=== PATIENT | female | born 1935 | race Caucasian/White ===

== ENCOUNTER 2016-06-04 07:12 | Emergency (ER) | payer MEDICARE ==
[~2016-06-04] VITALS: Ht 157.5 cm; Wt 80.3 kg
[~2016-06-04 07:12] MED LIST: /ESOM40CA PO; ASPI1TAB PO; ATOR40TA PO; BISO5TAB5 PO; BISO5TAB54 PO; CRAMPS OTC PO; DRIS1CAP PO; ISOS30TA4 PO; ISOS30TAB PO; LEVO75TA4 PO; LEVOTYROXINE PO; LOSA100T36 PO; MECLIZINE PO; NEXI40CA PO; NITR4TASL SL; OMEP40CA2 PO
[2016-06-04] MEDS ORDERED: ASPIRIN 81 MG CHEW TABLET PO ONE (07:45)
[2016-06-04 08:14] LABS: BASO % 0.3 % (0.0-1.0); EOS # 0.1 K/mm3 (0.0-0.50); EOS % 2.6 % (0.0-3.0); LARGE UNSTAINED CELL # 0.1 K/mm3 (0.0-0.4); LARGE UNSTAINED CELL % 1.2 % (0.0-4.0); LYMPH # 0.9 K/mm3 (1.5-4.5); LYMPH % 15.4 % (24.0-44.0); MEAN CORPUSCULAR HEMOGLOBIN 26.7 pg (27.0-33.0); MEAN CORPUSCULAR HGB CONC 32.9 g/dl (32.0-36.5); MEAN CORPUSCULAR VOLUME 81.2 fl (80.0-96.0); MONO # 0.3 K/mm3 (0.0-0.8); MONO % 5.5 % (0.0-5.0); NEUTROPHILS # 4.1 K/mm3 (1.8-7.7); NEUTROPHILS % 74.9 % (36.0-66.0); PLATELET COUNT, AUTOMATED 177 k/mm3 (150-450); RED CELL DISTRIBUTION WIDTH 15.5 % (11.5-14.5); WHITE BLOOD COUNT 5.5 K/mm3 (4.0-10.0)
[2016-06-04] MEDS ORDERED: LOSARTAN 50 MG TAB PO ONE (08:15)
[2016-06-04] MEDS ORDERED: ISOSORBIDE MON. (IMDUR) 30 MG XR TAB PO ONE (08:15)
[2016-06-04] MEDS ORDERED: BISOPROLOL FUMARATE 5 MG TAB PO ONE (08:15)
[2016-06-04 08:19] LABS: INR 1.03
[2016-06-04 08:29] VITALS: BP 142/68
[2016-06-04 08:39] LABS: ANION GAP 9 MEQ/L (8-16); BLOOD UREA NITROGEN 15 MG/DL (7-18); CALCIUM LEVEL 8.6 MG/DL (8.8-10.2); CARBON DIOXIDE LEVEL 27 MEQ/L (21-32); CHLORIDE LEVEL 109 MEQ/L (98-107); CREATININE FOR GFR 0.82 MG/DL (0.55-1.02); GLOMERULAR FILTRATION RATE > 60.0 (>32); GLUCOSE, FASTING 133 MG/DL (83-110); POTASSIUM SERUM 3.9 MEQ/L (3.5-5.1); SODIUM LEVEL 145 MEQ/L (136-145)
--- NOTE | 2016-06-04 09:05 | REP ---
PORTABLE CHEST: Single portable view of the chest is performed and compared to prior study of 01/31/2016. There is mild cardiomegaly. There is no acute infiltrate or pulmonary edema. The mediastinal silhouette is unchanged. Left single lead pacemaker is again noted. IMPRESSION: Cardiomegaly. No acute infiltrate. Signed by Yared Snider MD 06/04/2016 04:47 P
[2016-06-04] MEDS ORDERED: APIXABAN 5 MG TAB (ELIQUIS) PO ONE (09:15)
[2016-06-04] MEDS ORDERED: ELIQ5TAB PO (14:00)
[2016-06-04 14:31] VITALS: BP 106/59
--- NOTE | 2016-06-06 08:25 | ECGEPIP ---
Stationary ECG Study [facility] - ED Test Date: 2016-06-04 Pat Name: NICA ARAUJO Department: Room: - Gender: F Verification Lead: sb : 1935 Requested By: Larry Marrero Order Number: [id number] Reading MD: Tuyet Jones Measurements Intervals [place] Rate: 155 P: ID: 0 QRS: -22 QRSD: 88 T: 21 QT: 308 QTc: 496 Interpretive Statements ATRIAL FIBRILLATION WITH RAPID VENTRICULAR RESPONSE LOW QRS VOLTAGE IN PRECORDIAL LEADS ANTEROSEPTAL MYOCARDIAL INFARCTION, PROBABLY OLD PRIOR SINUS RHYTHM 02/01/16 Electronically Signed On 06-06-2016 8:25:29 EDT by Tuyet Jones
--- NOTE | 2016-06-06 08:26 | ECGEPIP ---
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
--- NOTE | 2016-06-06 08:30 | ECGEPIP ---
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
== END 2016-06-04 14:49 | disposition home or self-care (01) ==
LOC: M ED 08:49
DX: I48.91 Unspecified atrial fibrillation (principal); R94.31 Abnormal electrocardiogram [ECG] [EKG]; R06.02 Shortness of breath; R68.84 Jaw pain; I10 Essential (primary) hypertension; I25.10 Atherosclerotic heart disease of native coronary artery without angina pectoris; I50.9 Heart failure, unspecified; I25.2 Old myocardial infarction; E03.9 Hypothyroidism, unspecified; E78.5 Hyperlipidemia, unspecified; Z85.038 Personal history of other malignant neoplasm of large intestine; Z88.8 Allergy status to other drugs, medicaments and biological substances; Z79.899 Other long term (current) drug therapy; Z79.82 Long term (current) use of aspirin

== ENCOUNTER 2016-07-09 18:47 | Emergency (ER) | payer MEDICARE ==
[~2016-07-09] VITALS: Ht 157.5 cm; Wt 80.3 kg
[~2016-07-09 18:47] MED LIST changes: +ELIQ5TAB PO
[2016-07-09] MEDS ORDERED: AMIO20TA PO (19:00)
[2016-07-09] MEDS ORDERED: VITA200016 PO (19:00)
[2016-07-09] MEDS ORDERED: ACETAMINOPH W/CODEINE #3 TAB UD PO ONE (19:30)
[2016-07-09] MEDS ORDERED: GASTROGRAFIN SOLUTION 30ML (Q9963) PO ONE ×2 (19:45→20:00)
[2016-07-09 20:02] LABS: BASO % 0.2 % (0.0-1.0); EOS # 0.1 K/mm3 (0.0-0.50); EOS % 1.2 % (0.0-3.0); LARGE UNSTAINED CELL # 0.1 K/mm3 (0.0-0.4); LARGE UNSTAINED CELL % 0.8 % (0.0-4.0); LYMPH # 0.9 K/mm3 (1.5-4.5); LYMPH % 9.2 % (24.0-44.0); MEAN CORPUSCULAR HEMOGLOBIN 27.6 pg (27.0-33.0); MEAN CORPUSCULAR HGB CONC 33.2 g/dl (32.0-36.5); MEAN CORPUSCULAR VOLUME 83.3 fl (80.0-96.0); MONO # 0.4 K/mm3 (0.0-0.8); MONO % 3.7 % (0.0-5.0); NEUTROPHILS # 8.4 K/mm3 (1.8-7.7); NEUTROPHILS % 84.9 % (36.0-66.0); PLATELET COUNT, AUTOMATED 232 k/mm3 (150-450); RED CELL DISTRIBUTION WIDTH 15.7 % (11.5-14.5); WHITE BLOOD COUNT 9.9 K/mm3 (4.0-10.0)
[2016-07-09 20:34] LABS: ALBUMIN 3.6 GM/DL (3.2-5.2); ALBUMIN/GLOBULIN RATIO 1.16 (1.00-1.93); ALKALINE PHOSPHATASE 83 U/L (45-117); ALT/SGPT 16 U/L (12-78); AMYLASE 32 U/L (25-115); ANION GAP 9 MEQ/L (8-16); AST/SGOT 11 U/L (15-37); BILIRUBIN,DIRECT 0.2 MG/DL (0.0-0.2); BILIRUBIN,TOTAL 0.6 MG/DL (0.2-1.0); BLOOD UREA NITROGEN 13 MG/DL (7-18); CALCIUM LEVEL 8.9 MG/DL (8.8-10.2); CARBON DIOXIDE LEVEL 29 MEQ/L (21-32); CHLORIDE LEVEL 104 MEQ/L (98-107); CREATININE FOR GFR 0.94 MG/DL (0.55-1.02); GLOMERULAR FILTRATION RATE > 60.0 (>32); GLUCOSE, FASTING 118 MG/DL (83-110); POTASSIUM SERUM 4.6 MEQ/L (3.5-5.1); SODIUM LEVEL 142 MEQ/L (136-145); TOTAL PROTEIN 6.7 GM/DL (6.4-8.2)
[2016-07-09] MEDS ORDERED: ISOVUE-370 76% 100ML VIAL (Q9967) As Ordered ONE (21:16)
--- NOTE | 2016-07-09 21:50 | REPUSA ---
CT of the abdomen and pelvis with contrast Clinical statement: Pain. Technique: Multiple axial CT images were obtained from the base of the lungs through the floor of the pelvis utilizing 5 mm axial slices after administration of oral and nonionic intravenous contrast. C oronal and sagittal reconstructions were also obtained. Comparison: 02/04/2015. Findings: Chest: The visualized lung bases are clear. There is a moderate sized hiatal hernia. Abdomen: The liver, spleen, pancreas, kidneys, and adrenal glands are unremarkable. Small bilateral s imple renal cysts are noted. Iatrogenic pneumobilia is noted. The aorta is within normal limits. Ther e is no evidence of abdominal lymphadenopathy or ascites. Pelvis: The bowel is unremarkable, with no obstructive or inflammatory changes. Minimal diverticulosi s in the sigmoid colon is noted. The appendix is normal. The urinary bladder is within normal limits. The other pelvic structures appear grossly intact. There is no evidence of pelvic lymphadenopathy or ascites. Bones: There are no suspicious osseous abnormalities seen. Severe multilevel degenerative disc diseas e is noted throughout the spine, most severe at L3/L4 and L4/L5. Impression: 1. No obstructive or inflammatory bowel changes. Mild sigmoid diverticulosis. 2. Moderate sized hiatal hernia. 3. Iatrogenic pneumobilia. 4. No evidence of hydronephrosis or nephrolithiasis.Small bilateral simple renal cysts. 5. Moderate stable spondylosis of the spine.
[2016-07-09 22:35] VITALS: BP 134/75
[2016-07-09] MEDS ORDERED: NAPR500T PO (22:57)
[2016-07-09] MEDS ORDERED: ZOFR4TAB3 PO (22:57)
--- NOTE | 2016-07-12 06:59 | ED PDOC ---
Post-Departure Follow-Up radiology report faxed to Tuyet Romero MD Jul 12, 2016 06:59
== END 2016-07-09 23:09 | disposition home or self-care (01) ==
LOC: M ED 19:11
DX: R10.9 Unspecified abdominal pain (principal); R74.0 Nonspecific elevation of levels of transaminase and lactic acid dehydrogenase [LDH]; I48.91 Unspecified atrial fibrillation; I25.10 Atherosclerotic heart disease of native coronary artery without angina pectoris; F41.9 Anxiety disorder, unspecified; Z87.19 Personal history of other diseases of the digestive system; Z85.038 Personal history of other malignant neoplasm of large intestine; Z95.810 Presence of automatic (implantable) cardiac defibrillator; Z79.899 Other long term (current) drug therapy; Z79.01 Long term (current) use of anticoagulants; Z79.82 Long term (current) use of aspirin
CPT/HCPCS: 74177; 80048; 80076; 81001; 82150; 83605; 83690; 85025; 87086; 99283; Q9963; Q9967

== ENCOUNTER → 2016-08-13 | Outpatient (CLI) | payer MEDICARE ==
[~2016-08-13] VITALS: Ht 160 cm; Wt 80.3 kg
[~2016-08-13] MED LIST changes: +AMIO200T PO; -ATOR40TA PO; +ATOR40TA75 PO; +LIDOCAINE 2% INJ 100 MG/5 ML SDV (FOR ANES.) As Ordered ONE; +NAPR500T PO; +NS 1,000 ML IV SCH; +PROPOFOL 200 MG/20 ML VIAL As Ordered ONE; +TYLETAB14 PO; +VITA200016 PO; +ZOFR4TAB3 PO; +ePHEDrine SULFATE 25 MG/5 ML(5MG/ML) SYRINGE As Ordered ONE; +fentaNYL 100 MCG/2 ML INJECTION (J3010) As Ordered ONE
--- NOTE | 2016-08-13 08:24 | ROOR ---
Patient Name: Jennie eZndejas Procedure Date: 08/13/2016 8:06 AM Date of : 1935 Age: 81 Room: [facility] Gender: Female Note Status: Finalized Procedure: Upper GI endoscopy Indications: Epigastric abdominal pain, Suspected esophageal reflux Providers: Shalom Steiner Jr, MD Referring MD: Phillip Herbert MD Requesting Provider: Medicines: Propofol per Anesthesia Complications: No immediate complications. Procedure: Pre-Anesthesia Assessment: - Prior to the procedure, a History and Physical was performed, and patient medications and allergies were reviewed. The patient is competent. The risks and benefits of the procedure and the sedation options and risks were discussed with the patient. All questions were answered and informed consent was obtained. Patient identification and proposed procedure were verified by the physician and the nurse in the pre-procedure area and in the procedure room. Mental Status Examination: alert and oriented. Airway Examination: normal oropharyngeal airway and neck mobility. Respiratory Examination: clear to auscultation. CV Examination: normal. ASA Grade Assessment: II - A patient with mild systemic disease. After reviewing the risks and benefits, the patient was deemed in satisfactory condition to undergo the procedure. The anesthesia plan was to use moderate sedation / analgesia (conscious sedation). Immediately prior to administration of medications, the patient was re-assessed for adequacy to receive sedatives. The heart rate, respiratory rate, oxygen saturations, blood pressure, adequacy of pulmonary ventilation, and response to care were monitored throughout the procedure. The physical status of the patient was re-assessed after the procedure. The Endoscope was introduced through the mouth, and advanced to the second part of duodenum. The upper GI endoscopy was accomplished without difficulty. The patient tolerated the procedure well. Findings: The upper third of the esophagus, middle third of the esophagus and lower third of the esophagus were normal. A small hiatal hernia was present. Diffuse moderate inflammation characterized by congestion (edema), erythema, friability and granularity was found in the gastric antrum. Biopsies were taken with a cold forceps for histology. Patchy mildly erythematous mucosa was found in the cardia, in the gastric fundus, in the gastric body, in the prepyloric region of the stomach and at the pylorus. The duodenal bulb and first portion of the duodenum were normal. Impression: - Normal upper third of esophagus, middle third of esophagus and lower third of esophagus. - Small hiatal hernia. - Bile gastritis. Biopsied. - Erythematous mucosa in the cardia, gastric fundus, gastric body, prepyloric region of the stomach and pylorus. - Normal duodenal bulb and first portion of the duodenum. Recommendation: - Discharge patient to home (ambulatory). - Return to my office in 3 weeks. Shalom Steiner MD Shalom Steiner Jr, MD 08/13/2016 8:24:21 AM This report has been signed electronically. Number of Addenda: 0 Note Initiated On: 08/13/2016 8:06 AM Estimated Blood Loss: Estimated blood loss: none.
--- NOTE | 2016-08-13 08:45 | ROOR ---
Patient Name: Jennie Zendejas Procedure Date: 08/13/2016 8:07 AM Date of : 1935 Age: 81 Room: [facility] Gender: Female Note Status: Finalized Procedure: Colonoscopy Indications: High risk colon cancer surveillance: Personal history of colon cancer Providers: Shalom Steiner Jr, MD Referring MD: Phillip Herbert MD Requesting Provider: Medicines: Propofol per Anesthesia Complications: No immediate complications. Procedure: Pre-Anesthesia Assessment: - Prior to the procedure, a History and Physical was performed, and patient medications and allergies were reviewed. The patient is competent. The risks and benefits of the procedure and the sedation options and risks were discussed with the patient. All questions were answered and informed consent was obtained. Patient identification and proposed procedure were verified by the physician and the nurse in the pre-procedure area and in the procedure room. Mental Status Examination: alert and oriented. Airway Examination: normal oropharyngeal airway and neck mobility. Respiratory Examination: clear to auscultation. CV Examination: normal. ASA Grade Assessment: II - A patient with mild systemic disease. After reviewing the risks and benefits, the patient was deemed in satisfactory condition to undergo the procedure. The anesthesia plan was to use moderate sedation / analgesia (conscious sedation). Immediately prior to administration of medications, the patient was re-assessed for adequacy to receive sedatives. The heart rate, respiratory rate, oxygen saturations, blood pressure, adequacy of pulmonary ventilation, and response to care were monitored throughout the procedure. The physical status of the patient was re-assessed after the procedure. The Colonoscope was introduced through the anus and advanced to the cecum, identified by appendiceal orifice and ileocecal valve. The colonoscopy was performed without difficulty. The patient tolerated the procedure well. The quality of the bowel preparation was adequate and good. Findings: The perianal and digital rectal examinations were normal. Pertinent negatives include normal sphincter tone, no palpable rectal lesions and no anal lesion or abnormality was detected. The rectum, transverse colon, ascending colon, cecum, appendiceal orifice and ileocecal valve appeared normal. A diminutive polyp was found in the descending colon. The polyp was removed with a jumbo cold forceps. Resection and retrieval were complete. A medium polyp was found in the descending colon. The polyp was sessile. The polyp was removed with a piecemeal technique using a hot snare. Resection and retrieval were complete. Impression: - The rectum, transverse colon, ascending colon, cecum, appendiceal orifice and ileocecal valve are normal. - One diminutive polyp in the descending colon, removed with a jumbo cold forceps. Resected and retrieved. - One medium polyp in the descending colon, removed piecemeal using a hot snare. Resected and retrieved. Recommendation: - Discharge patient to home (ambulatory). - Repeat colonoscopy in 3 years for surveillance based on pathology results. Shalom Steiner MD Shalom Steiner Jr, MD 08/13/2016 8:45:27 AM This report has been signed electronically. Number of Addenda: 0 Note Initiated On: 08/13/2016 8:07 AM Estimated Blood Loss: Estimated blood loss: none.
[2016-08-13 09:00] VITALS: BP 151/67
== END ==
LOC: M OPP 07:05
PROVIDERS: ATTEND Surgery
DX: R19.4 Change in bowel habit (principal); Z85.038 Personal history of other malignant neoplasm of large intestine; D12.4 Benign neoplasm of descending colon; R10.13 Epigastric pain; K44.9 Diaphragmatic hernia without obstruction or gangrene; K29.60 Other gastritis without bleeding; K31.89 Other diseases of stomach and duodenum; I10 Essential (primary) hypertension; E03.9 Hypothyroidism, unspecified; Z79.82 Long term (current) use of aspirin; Z79.899 Other long term (current) drug therapy; Z88.8 Allergy status to other drugs, medicaments and biological substances; Z95.0 Presence of cardiac pacemaker; Z95.5 Presence of coronary angioplasty implant and graft; I25.2 Old myocardial infarction; Z90.49 Acquired absence of other specified parts of digestive tract
CPT/HCPCS: 43239; 45380; 45385; 88305; J3010

== ENCOUNTER → 2016-11-20 | Outpatient (REF) | payer MEDICARE ==
[~2016-11-20] MED LIST changes: -LIDOCAINE 2% INJ 100 MG/5 ML SDV (FOR ANES.) As Ordered ONE; -NS 1,000 ML IV SCH; -PROPOFOL 200 MG/20 ML VIAL As Ordered ONE; -ePHEDrine SULFATE 25 MG/5 ML(5MG/ML) SYRINGE As Ordered ONE; -fentaNYL 100 MCG/2 ML INJECTION (J3010) As Ordered ONE
[2016-11-20 13:24] LABS: MEAN CORPUSCULAR HEMOGLOBIN 26.6 pg (27.0-33.0); MEAN CORPUSCULAR HGB CONC 31.1 g/dl (32.0-36.5); MEAN CORPUSCULAR VOLUME 85.5 fl (80.0-96.0); RED CELL DISTRIBUTION WIDTH 16.2 % (11.5-14.5); WHITE BLOOD COUNT 6.1 10^3/uL (4.0-10.0)
[2016-11-20 13:49] LABS: ALBUMIN 3.5 GM/DL (3.2-5.2); ALBUMIN/GLOBULIN RATIO 1.25 (1.00-1.93); BILIRUBIN,TOTAL 0.6 MG/DL (0.2-1.0); CALCIUM LEVEL 9.1 MG/DL (8.8-10.2); CREATININE FOR GFR 0.96 MG/DL (0.55-1.02); FREE T4 1.51 NG/DL (0.76-1.46); GLOMERULAR FILTRATION RATE 59.5 (>32); POTASSIUM SERUM 3.7 MEQ/L (3.5-5.1); TOTAL PROTEIN 6.3 GM/DL (6.4-8.2)
== END ==
LOC: M LABNEURO 09:24
PROVIDERS: ATTEND Family Medicine
DX: I25.10 Atherosclerotic heart disease of native coronary artery without angina pectoris (principal); E78.4 Other hyperlipidemia; E03.9 Hypothyroidism, unspecified

== ENCOUNTER 2016-11-21 12:48 | Emergency (ER) | payer MEDICARE ==
[~2016-11-21] VITALS: Ht 157.5 cm; Wt 77.3 kg
[~2016-11-21 12:48] MED LIST changes: -TYLETAB14 PO
--- NOTE | 2016-11-21 14:11 | REP ---
Right shoulder series: Three views. History: Trauma. Findings: Three views of the right shoulder demonstrate osteoarthritic hypertrophy and narrowing at the acromioclavicular joint. The glenohumeral articulation is normally aligned. No fracture or erosive changes seen. There is a 10 mm periarticular calcification projecting below the coracoid process consistent with a intra-articular loose body. The right lung is clear as visualized. There is a pacemaker via the left side. Impression: Periarticular calcification consistent with a 10 mm loose body in the subcoracoid recess. AC joint osteoarthritis. Mild glenohumeral spurring. No fracture seen or other traumatic abnormality. Signed by Jose J Avelar MD 11/21/2016 02:21 P
[2016-11-21] MEDS ORDERED: ACETAMINOPH W/CODEINE #3 TAB UD PO ONE (14:15)
[2016-11-21] MEDS ORDERED: TYLETAB14 PO (14:17)
[2016-11-21 14:30] VITALS: BP 131/73
== END 2016-11-21 14:33 | disposition home or self-care (01) ==
LOC: M ED 12:48
DX: M24.011 Loose body in right shoulder (principal); I25.10 Atherosclerotic heart disease of native coronary artery without angina pectoris; I10 Essential (primary) hypertension; E03.9 Hypothyroidism, unspecified; M21.372 Foot drop, left foot; E78.70 Disorder of bile acid and cholesterol metabolism, unspecified; Z79.899 Other long term (current) drug therapy; Z79.82 Long term (current) use of aspirin; Z88.8 Allergy status to other drugs, medicaments and biological substances; Z85.038 Personal history of other malignant neoplasm of large intestine

== ENCOUNTER 2017-01-05 16:53 | Emergency (ER) | payer MEDICARE ==
[~2017-01-05] VITALS: Ht 157.5 cm; Wt 77.3 kg
[~2017-01-05 16:53] MED LIST changes: +TYLETAB14 PO
[2017-01-05 17:54] LABS: BASO % 0.5 % (0.0-1.0); EOS # 0.1 10^3/uL (0.0-0.50); IMMATURE GRANULOCYTE % 0.5 % (0-0); LYMPH # 0.9 10^3/uL (1.5-4.5); MEAN CORPUSCULAR HEMOGLOBIN 27.3 pg (27.0-33.0); MEAN CORPUSCULAR HGB CONC 32.1 g/dl (32.0-36.5); MEAN CORPUSCULAR VOLUME 84.9 fl (80.0-96.0); MONO # 0.5 10^3/uL (0.0-0.8); MONO % 8.2 % (0.0-5.0); NEUTROPHILS # 4.3 10^3/uL (1.8-7.7); NEUTROPHILS % 73.8 % (36.0-66.0); PLATELET COUNT, AUTOMATED 238 10^3/uL (150-450); RED CELL DISTRIBUTION WIDTH 15.9 % (11.5-14.5); WHITE BLOOD COUNT 5.9 10^3/uL (4.0-10.0)
--- NOTE | 2017-01-05 17:54 | REP ---
Clinical: Chest pain . Comparison: 06/04/2016 . Findings: The mediastinum and cardiac silhouette are stable and within normal limits for portable technique. The lung gregg are clear without acute consolidation, effusion, or pneumothorax. Skeletal structures are intact. Pacemaker in stable position. Impression: No acute cardiopulmonary process appreciated. Signed by Jethro King MD 01/05/2017 05:44 P
[2017-01-05 18:15] LABS: ANION GAP 10 MEQ/L (8-16); BLOOD UREA NITROGEN 12 MG/DL (7-18); CARBON DIOXIDE LEVEL 26 MEQ/L (21-32); CHLORIDE LEVEL 107 MEQ/L (98-107); CREATININE FOR GFR 0.93 MG/DL (0.55-1.02); GLOMERULAR FILTRATION RATE > 60.0 (>32); GLUCOSE, FASTING 108 MG/DL (83-110); POTASSIUM SERUM 3.6 MEQ/L (3.5-5.1); SODIUM LEVEL 143 MEQ/L (136-145)
[2017-01-05] MEDS ORDERED: ISOVUE-370 76% 100ML VIAL (Q9967) As Ordered ONE (18:22)
[2017-01-05 19:09] LABS: INR 1.43
[2017-01-05] MEDS ORDERED: ACETAMINOPHEN TAB 650MG DOSE (2X325MG) PO ONE (19:15)
[2017-01-06 00:14] VITALS: BP 127/56
--- NOTE | 2017-01-06 08:14 | ECGEPIP ---
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
--- NOTE | 2017-01-06 08:17 | ECGEPIP ---
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
--- NOTE | 2017-01-14 10:50 | REP ---
CT ANGIOGRAM CHEST: 01/05/2017. Comparison 01/03/2016. Clinical history: Chest pain, dyspnea. Study presented for my initial interpretation today. A wet reading was provided by a colleague at the time of the examination. It is not available for dictation and therefore it is dictated now. Technique: The patient received bolus of 100 ml Isovue 370 and scanning through the chest. Protocol for CT pulmonary angio followed with thick slab coronal and sagittal MIP reformats. Lung gregg show the anterior right upper lobe subpleural nodule best seen on image 33 of series 402. There are no other nodules or masses. There are dependent atelectatic and fibrotic changes. There is a greater left than right. There is no effusion or acute infiltrate. The heart is enlarged with left atrial and ventricular enlargement. Pacer lead into the right ventricle again noted. There is small pericardial effusion. The aorta has calcifications without aneurysm or dissection. There is poor opacification of the pulmonary arteries with the central arteries to proximal lobar arteries seen without evidence for filling defect. Exam is suboptimal for pulmonary emboli of the more peripheral vessels. There is no pathologic sized mediastinal or hilar adenopathy. No axillary or supraclavicular mass. Bone windows show advanced degenerative changes throughout the lumbar spine and thoracic levels from upper to lower thoracic region. Sternum, manubrium, medial clavicles, ribs, scapulae, humeral heads were all grossly intact. The upper abdomen shows clips from prior cholecystectomy. There is pneumobilia evident. This is a postcholecystectomy change and unremarkable. The adrenal glands are normal. A couple of small cysts in the upper poles of the kidneys and visible portion of pancreas intact. Moderate sized hiatal hernia again seen unchanged. Impression: 1. No evidence for central pulmonary embolism. The exam is suboptimal for other vessels. 2. Pneumobilia again noted with clips from prior cholecystectomy. 3. Basilar fibrotic change and a 6 mm nodule in the right upper lobe subpleural region. This should have a 6-month follow-up. 4. Cardiomegaly with left atrial and ventricular enlargement, coronary artery calcifications, single lead pacer, all unchanged. Signed by George Sosa MD 01/14/2017 08:31 P
== END 2017-01-06 00:45 | disposition home or self-care (01) ==
LOC: M ED 16:53
DX: R91.1 Solitary pulmonary nodule (principal); R06.02 Shortness of breath; R00.1 Bradycardia, unspecified; I48.91 Unspecified atrial fibrillation; I25.10 Atherosclerotic heart disease of native coronary artery without angina pectoris; I10 Essential (primary) hypertension; E07.9 Disorder of thyroid, unspecified; I42.9 Cardiomyopathy, unspecified; H81.09 Meniere's disease, unspecified ear; M51.9 Unspecified thoracic, thoracolumbar and lumbosacral intervertebral disc disorder; Z79.899 Other long term (current) drug therapy; Z88.8 Allergy status to other drugs, medicaments and biological substances; Z95.5 Presence of coronary angioplasty implant and graft; Z95.810 Presence of automatic (implantable) cardiac defibrillator; Z98.0 Intestinal bypass and anastomosis status; Z98.890 Other specified postprocedural states; Z85.038 Personal history of other malignant neoplasm of large intestine; Z80.1 Family history of malignant neoplasm of trachea, bronchus and lung; Z83.3 Family history of diabetes mellitus
CPT/HCPCS: 36415; 71010; 71275; 80048; 82550; 82553; 83880; 84484; 85025; 85379; 85610; 85730; 93005; 93041; 94760; 99285; Q9967

== ENCOUNTER → 2017-01-15 | Outpatient (REF) | payer MEDICARE ==
[2017-01-15 20:06] LABS: MEAN CORPUSCULAR HEMOGLOBIN 27.2 pg (27.0-33.0); MEAN CORPUSCULAR HGB CONC 30.4 g/dl (32.0-36.5); MEAN CORPUSCULAR VOLUME 89.3 fl (80.0-96.0); PERCENT SATURATION 14.6 % (13.2-45.0); PLATELET COUNT, AUTOMATED 245 10^3/uL (150-450); RED CELL DISTRIBUTION WIDTH 15.9 % (11.5-14.5); WHITE BLOOD COUNT 7.1 10^3/uL (4.0-10.0)
== END ==
LOC: M SFHCADAM 16:01
PROVIDERS: ATTEND Physician Assistant Medical
DX: D64.9 Anemia, unspecified (principal)

== ENCOUNTER 2017-02-02 15:38 | Observation (INO) | payer MEDICARE ==
[~2017-02-02] VITALS: Ht 157.5 cm; Wt 78.4 kg
[2017-02-02] MEDS ORDERED: SPIR25TA2 PO (15:59)
[2017-02-02] MEDS ORDERED: FURO20TA2 PO (15:59)
[2017-02-02] MEDS ORDERED: ASPIRIN 81 MG CHEW TABLET PO ONE (16:00)
[2017-02-02 16:22] LABS: BASO % 0.5 % (0.0-1.0); EOS # 0.1 10^3/uL (0.0-0.50); EOS % 2.1 % (0.0-3.0); IMMATURE GRANULOCYTE % 0.3 % (0-0); LYMPH # 0.8 10^3/uL (1.5-4.5); LYMPH % 11.9 % (24.0-44.0); MEAN CORPUSCULAR HGB CONC 32.4 g/dl (32.0-36.5); MEAN CORPUSCULAR VOLUME 83.4 fl (80.0-96.0); MONO # 0.6 10^3/uL (0.0-0.8); MONO % 8.5 % (0.0-5.0); NEUTROPHILS % 76.7 % (36.0-66.0); PLATELET COUNT, AUTOMATED 242 10^3/uL (150-450); RED CELL DISTRIBUTION WIDTH 15.5 % (11.5-14.5); WHITE BLOOD COUNT 6.6 10^3/uL (4.0-10.0)
--- NOTE | 2017-02-02 16:39 | REP ---
Clinical: Chest pain . Comparison: 01/05/2017 . Findings: The mediastinum and cardiac silhouette are stable and again demonstrating mild cardiomegaly and pacemaker in satisfactory position. The lung gregg demonstrate chronic stable changes without acute consolidation, effusion, or pneumothorax. Skeletal structures are intact. Impression: No acute cardiopulmonary process appreciated. Signed by Jethro King MD 02/02/2017 04:29 P
[2017-02-02 16:52] LABS: ALBUMIN 3.2 GM/DL (3.2-5.2); ALKALINE PHOSPHATASE 60 U/L (45-117); ALT/SGPT 19 U/L (12-78); ANION GAP 6 MEQ/L (8-16); AST/SGOT 14 U/L (7-37); BILIRUBIN,DIRECT 0.1 MG/DL (0.0-0.2); BILIRUBIN,TOTAL 0.5 MG/DL (0.2-1.0); BLOOD UREA NITROGEN 12 MG/DL (7-18); CALCIUM LEVEL 8.4 MG/DL (8.8-10.2); CARBON DIOXIDE LEVEL 30 MEQ/L (21-32); CHLORIDE LEVEL 107 MEQ/L (98-107); CREATININE FOR GFR 0.85 MG/DL (0.55-1.02); GLOMERULAR FILTRATION RATE > 60.0 (>32); GLUCOSE, FASTING 112 MG/DL (83-110); POTASSIUM SERUM 3.3 MEQ/L (3.5-5.1); SODIUM LEVEL 143 MEQ/L (136-145); TOTAL PROTEIN 6.4 GM/DL (6.4-8.2)
[2017-02-02] MEDS ORDERED: ISOS60TA2 PO (18:21)
[2017-02-02] MEDS ORDERED: ELIQ5TAB PO (18:21)
[2017-02-02] MEDS ORDERED: SYNT88TA2 PO (18:21)
--- NOTE | 2017-02-02 18:42 | ECGEPIP ---
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
--- NOTE | 2017-02-02 18:43 | ECGEPIP ---
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
[2017-02-02] MEDS ORDERED: POTASSIUM CHLORIDE 10 MEQ SR TABLET PO ONE (21:00)
[2017-02-02] MEDS ORDERED: MAALOX 30 ML SUSP *UDC PO PRN (21:00)
[2017-02-02] MEDS ORDERED: ACETAMINOPHEN TAB 650MG DOSE (2X325MG) PO PRN (21:15)
[2017-02-02] MEDS ORDERED: ISOVUE-370 76% 100ML VIAL (Q9967) As Ordered ONE (21:23)
[2017-02-02] MEDS: SENOKOT S TAB PO SCH (21:32)
[2017-02-02] MEDS: APIXABAN 5 MG TAB (ELIQUIS) PO SCH (21:32)
--- NOTE | 2017-02-02 22:30 | REPUSA ---
CT angiogram of the chest Clinical statement: Chest pain and shortness of breath. Technique: Multiple axial CT images were obtained from the thoracic inlet through the upper abdomen a fter a bolus administration of nonionic intravenous contrast. Coronal and sagittal reconstructions we re also obtained. Comparison: 01/05/2017. Findings: The pulmonary arteries are well-opacified with contrast, with no intraluminal filling defec ts to suggest embolism. The thoracic aorta is unremarkable. Thyroid gland is within normal limits. Th ere is no thoracic lymphadenopathy. There are no pericardial or pleural effusions. There is a left lo wer lobe atelectasis. There is a 1.1 x 0.9 cm nodule in the anterior right upper lobe. This is stable . Limited imaging of the upper abdomen demonstrates a moderate sized hiatal hernia. Biliary pneumatos is is noted. There are no suspicious osseous lesions. Impression: 1. No evidence of pulmonary embolism. 2. Atelectasis in the left lower lobe. 3. Stable 1.1 x 0.9 cm nodule in the anterior right upper lobe. CT/PET scan or biopsy could be consid ered. Alternatively, a short interval CT follow-up is recommended. 4. Moderate sized hiatal hernia. 5. Stable biliary pneumatosis.
--- NOTE | 2017-02-03 05:28 | HPE ---
DATE OF ADMISSION: 02/02/2017 PRIMARY CARE PROVIDER: Dr. Herbert. JAVA SOFTWARE: Dr. Ordonez. CHIEF COMPLAINT: Chest pain. The patient has been signed out to Dr. Herbert. Will be under the care of Dr. Hernandez tomorrow. 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 The patient has a history of intermittent chest pain, seeing Dr. Ordonez. The patient presented to the emergency room with acute onset at 9:30 in the morning of chest pain, as per patient was left-sided, aching pain with no radiation, no exacerbating or relieving factor. Does not relieve with nitroglycerin. Was not to the extent of intensity in the past. Does not change with food. Denies any diaphoresis, palpitations. The patient was bradycardic in the emergency room, as per patient has been chronic. The patient has an automatic implantable cardioverter defibrillator (AICD). Denies any sick contact, coughing, abdominal pain, diarrhea or constipation. ALLERGIES: The patient reported allergies to: 1. NON-STEROIDAL ANTI-INFLAMMATORY DRUGS (NSAIDs), ASPIRIN for gastritis. 2. NEBULIZER TREATMENT causes dyspnea. PAST MEDICAL HISTORY: Please refer to history of present illness (HPI). The patient has hypertension, hypothyroidism, diaphragmatic hernia, colorectal cancer, gastritis, vitamin D deficiency, peptic ulcer, esophageal stenosis with stricture, benign positional vertigo, Meniere's disease, general osteoarthritis, diverticulosis, degenerative disc disease, spinal stenosis with foot drop left foot, as well as moderate to poorly differentiated rectal cancer, coronary arterial disease, pericardial effusion, biliary stone. PAST SURGICAL HISTORY: Cholecystectomy, total hysterectomy with bilateral salpingo-oophorectomy, colon cancer resection left side 1989, EGD, moderate to poorly differentiated that was operated on in 2013, ERCP, bowel resection, sigmoidectomy, cardiac catheterization with bare-metal stent 2013, pericardial window 2013. AICD 2014, ERCP 2015. Cataract surgery right eye. Repeat cardiac catheterization December 2015. FAMILY HISTORY: Father with lung cancer. Mother with type 2 diabetes. SOCIAL HISTORY: The patient does not smoke. Reported occasional alcohol use. No illicit drug use. REVIEW OF SYSTEMS: Reported chest pain. All other review of systems is negative. HOME MEDICATIONS: - Eliquis 5 mg by mouth twice a day - amiodarone 200 mg by mouth daily - aspirin 81 mg by mouth daily - Lipitor 40 mg by mouth daily - bisoprolol 2.5 mg by mouth daily - Lasix 20 mg by mouth daily - isosorbide mononitrate 60 mg by mouth daily - Synthroid 88 mcg by mouth daily - losartan 100 mg by mouth daily - sublingual nitroglycerin 0.4 as needed - omeprazole 40 mg by mouth daily - spironolactone 12.5 mg by mouth daily - vitamin D 2000 units by mouth daily PHYSICAL EXAMINATION: VITAL SIGNS: Temperature 96.7, pulse 44, respirations 19, blood pressure 147/67, pulse oximetry 98% on room air. GENERAL: Patient alert and oriented times three, in no acute distress. HEENT: Normocephalic, atraumatic. PULMONARY: Bilaterally clear to auscultation. CARDIOVASCULAR: Regular. S1, S2. ABDOMEN: Soft, nontender. Positive bowel sounds. Surgical scar note. EXTREMITIES: Left lower extremity mildly swollen. Dorsalis pedis and posterior tibial pulses intact. LABORATORY DATA: WBC 6.6, hemoglobin and hematocrit 10.9 over 33.6, platelets 242. Chemistry: Sodium 143, potassium 3.2, chloride 107, bicarbonate 30, BUN 12, creatinine 0.8. Cardiac enzymes negative times two. Lipase negative. ASSESSMENT AND PLAN: This is an 82-year-old female patient with underlying medical history hypertension, coronary arterial disease, dyslipidemia, hypothyroidism, with recurrent angina, left foot drop, colon cancer history, peptic ulcer, esophageal stricture, benign positional vertigo history, who presented with left-sided chest pain. 1. Left-sided chest pain. Cardiac enzymes are negative times two. Case discussed with Dr. Ordonez. Given presentation and persistent pain not relieved with nitroglycerin, likely noncardiac in nature. Will do further workup in terms of CT angiogram to rule out pulmonary embolism (PE), as well as echocardiogram. The patient possibly would benefit from gastrointestinal (GI) workup, given the source of pain could be secondary to GI and acid reflux. GI cocktail. Continue proton pump inhibitor (PPI). 2. Coronary arterial disease. Patient on Eliquis and aspirin. Continue beta rupesh, statin, isosorbide mononitrate, losartan, spironolactone. Continue to monitor. Echocardiogram. Telemetry monitoring. Serial cardiac enzymes. 3. Questionable atrial fibrillation. Patient has an automatic implantable cardioverter defibrillator (AICD). Continue amiodarone, beta rupesh, Eliquis. 4. Dyslipidemia. Continue statin. 5. Hypertension. Continue current medication. 6. Hypothyroidism. Monitor thyroid profile. Continue home medication. 7. History of peptic ulcer and acid reflux. Continue home medication. GI cocktail has been ordered. 8. Pulmonary nodule. Will need outpatient followup. 9. Colon cancer. Need outpatient followup. 10. History of pericardial effusion. Echocardiogram has been ordered. 11. Left foot swelling with left foot drop. Ultrasound Doppler to rule out deep venous thrombosis (DVT). 12. Deep venous thrombosis (DVT) prophylaxis. Patient on Eliquis for possible atrial fibrillation. DISPOSITION: Pending further workup for chest pain. Case discussed with Dr. Ordonez. Sign out given to Dr. Herbert.
[2017-02-03 07:31] LABS: MEAN CORPUSCULAR HEMOGLOBIN 26.9 pg (27.0-33.0); MEAN CORPUSCULAR VOLUME 84.3 fl (80.0-96.0); PLATELET COUNT, AUTOMATED 222 10^3/uL (150-450); RED CELL DISTRIBUTION WIDTH 15.8 % (11.5-14.5); WHITE BLOOD COUNT 4.9 10^3/uL (4.0-10.0)
[2017-02-03 07:53] LABS: ERYTHROCYTE SEDIMENTATION RATE 17 mm/hr (0-30)
[2017-02-03 08:17] LABS: ALBUMIN/GLOBULIN RATIO 0.94 (1.00-1.93); ALKALINE PHOSPHATASE 58 U/L (45-117); ALT/SGPT 17 U/L (12-78); ANION GAP 5 MEQ/L (8-16); AST/SGOT 15 U/L (7-37); BILIRUBIN,TOTAL 0.5 MG/DL (0.2-1.0); BLOOD UREA NITROGEN 8 MG/DL (7-18); CALCIUM LEVEL 8.5 MG/DL (8.8-10.2); CARBON DIOXIDE LEVEL 32 MEQ/L (21-32); CHLORIDE LEVEL 108 MEQ/L (98-107); CREATININE FOR GFR 0.85 MG/DL (0.55-1.02); GLOMERULAR FILTRATION RATE > 60.0 (>32); GLUCOSE, FASTING 104 MG/DL (83-110); MAGNESIUM LEVEL 2.1 MG/DL (1.8-2.4); POTASSIUM SERUM 3.9 MEQ/L (3.5-5.1); SODIUM LEVEL 145 MEQ/L (136-145); T UPTAKE 36 % (30-39); THYROXINE (T4) 15.2 UG/DL (4.5-12.0); TOTAL PROTEIN 6.2 GM/DL (6.4-8.2)
[2017-02-03 08:30] VITALS: BP 162/80
[2017-02-03] MEDS: OMEPRAZOLE 20 MG CAP PO SCH (08:37)
[2017-02-03] MEDS: SENOKOT S TAB PO SCH ×2 (08:38→20:49)
[2017-02-03] MEDS: VITAMIN D 1,000 INTERNATIONAL UNITS TABLET PO SCH (08:38)
[2017-02-03] MEDS: LOSARTAN 50 MG TAB PO SCH (08:41)
[2017-02-03] MEDS: ATORVASTATIN 20 MG TAB PO SCH (08:41)
[2017-02-03] MEDS: FUROSEMIDE 20 MG TAB PO SCH (08:42)
[2017-02-03] MEDS: ASPIRIN 81 MG ENTERIC TAB PO SCH (08:42)
[2017-02-03] MEDS: APIXABAN 5 MG TAB (ELIQUIS) PO SCH ×2 (08:42→20:49)
[2017-02-03] MEDS: SPIRONOLACTONE 12.5MG PER 1/2 TABLET PO SCH (08:43)
[2017-02-03] MEDS: LEVOTHYROXINE 88MCG TABLET (0.088 MG) PO SCH (08:44)
[2017-02-03] MEDS: ISOSORBIDE MON. (IMDUR) 60 MG XR TAB PO SCH (08:44)
[2017-02-03] MEDS: AMIODARONE 200 MG TAB (PACERONE) PO SCH (08:47)
[2017-02-03] MEDS ORDERED: BISOPROLOL FUM 2.5 MG PER 1/2TAB PO SCH (09:00)
--- NOTE | 2017-02-03 09:03 | REP ---
Clinical: Pain and swelling.. Technique: Snider scale and color Doppler evaluation using linear high frequency transducer. Findings: Ultrasound examination of the left lower extremity deep venous structures from the common femoral vein to the popliteal vein demonstrates normal compressibility flow and wave patterns in response to respiration and augmentation. There is no evidence for deep venous thrombosis. Impression: No evidence for deep venous thrombosis left lower extremity.. Signed by Jethro King MD 02/03/2017 08:55 A
[2017-02-03 12:00] VITALS: BP 166/76; PULSE 48
--- NOTE | 2017-02-03 12:26 | IPNPDOC ---
Subjective Date Seen The patient was seen on 02/03/17. Subjective Chief Complaint/HPI The patient is a 82-year-old female admitted with a reason for visit of Chest Pain. Events since last encounter patient reports chest pain in left chest after walking to [place]. No associated n/ v or SOB. NO radiation of pain Constitutional: Denies: Chills, Fever Pulmonary: Denies: Dyspnea, Cough Cardiovascular: Reports: Chest Pain (see above), Edema (improved with initiation of diuretic by Dr. Whitomre 01/25), Denies: Palpitations, Orthopnea, Paroxysmal Noc. Dyspnea Gastrointestinal: Denies: Nausea, Vomiting, Abdominal Pain, Diarrhea, Constipation Objective Physical Examination General Exam: Positive: Alert, No Acute Distress Chest Exam: Positive: Clear to auscultation, Normal air movement, Other (non- tender) Heart Exam: Positive: Bradycardic, Negative: Murmurs Abdomen Exam: Positive: Normal bowel sounds, Soft, Negative: Tenderness Assessment /Plan Problems (1) Chest pain Status: Acute Problem Text: Troponins negative and EKG stable c/w baseline. Had recurrent CP after ambulation now. EKG unchanged Cont ASA/BB/ARB/Statin Dr. Hernandez will d/w cardiology again (2) Bradycardia Status: Chronic Problem Text: HR running in 40s on amiodarone and Zebeta 2.5 mg daily d/W cardio whether to cut back or stop BB (3) Anemia Status: Acute Response to Treatment: Worse Problem Text: mild anemia - new c/w baseline Get guiac Continue home PPI (omeprazole) Colonoscopy 08/13/16 - 1 polyp removed, tubulovillous adenoma EGD 08/13/16: gastritis (4) PAF (paroxysmal atrial fibrillation) Status: Chronic Response to Treatment: Stable Problem Text: on ELiquis (5) CAD (coronary artery disease) Status: Chronic (6) Pulmonary nodule Status: Chronic Problem Text: need f/u CT No evidence of pulmonary embolism. 2. Atelectasis in the left lower lobe. 3. Stable 1.1 x 0.9 cm nodule in the anterior right upper lobe. CT/PET scan or biopsy could be considered. Alternatively, a short interval CT follow-up is recommended. 4. Moderate sized hiatal hernia. 5. Stable biliary pneumatosis. DD: ARTIE MENARD MD 02/02/17 2223 Plan/VTE VTE Prophylaxis Ordered?: Yes (Danay) Plan Family Medicine Attending Note: I saw and examined Ms. Zendejas this afternoon; I discussed her care with ALEXANDREA Lucas and I agree with her note as documented above. The patient described her symptoms as chest discomfort moreso than pain, and was not able to characterize this further. Ddx includes reflux/dyspepsia, mild anemia in the setting of known CAD causing ischemia, or symptomatic bradycardia. Repeat ECG and troponin were negative today. We will work up her anemia with hemoccult, stool, but panendoscopy was fairly normal and not concerning 08/2016 (see above). I discussed with Dr. 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 Ordonez today, and he recommended stopping Bisoprolol to see if her HR and symptoms improve; bisoprolol will be held starting tomorrow. If she continues to have episodes of chest pain, we should consider Cardiology consult - it appears from Dr. Ordonez's last note that he intended to schedule her for a stress test. (KES) VS, I&O, 24H, Fishbone Vital Signs/I&O Vital Signs Date Time Temp Pulse Resp B/P (MAP) Pulse Ox O2 Delivery O2 Flow Rate FiO2 02/03/17 08:44 162/80 02/03/17 08:43 58 02/03/17 08:30 97.0 18 98 Room Air Laboratory Data 24H LABS Laboratory Tests 2 02/02/17 16:06: Immature Granulocyte % (Auto) 0.3H, White Blood Count 6.6, Red Blood Count 4.03 , Hemoglobin 10.9L, Hematocrit 33.6L, Mean Corpuscular Volume 83.4, Mean Corpuscular Hemoglobin 27.0, Mean Corpuscular Hemoglobin Concent 32.4, Red Cell Distribution Width 15.5H, Platelet Count 242, Neutrophils (%) (Auto) 76.7H, Lymphocytes (%) (Auto) 11.9L, Monocytes (%) (Auto) 8.5H, Eosinophils (%) (Auto) 2.1, Basophils (%) (Auto) 0.5, Neutrophils # (Auto) 5.0, Lymphocytes # (Auto) 0.8L, Monocytes # (Auto) 0.6, Eosinophils # (Auto) 0.1, Basophils # (Auto) 0.0, Immature Granulocyte # (Auto) 0.0, Nucleated Red Blood Cells % (auto) 0.0, Anion Gap 6L, Glomerular Filtration Rate > 60.0, Calcium Level 8.4L, Aspartate Amino Transf (AST/SGOT) 14, Alanine Aminotransferase (ALT/SGPT) 19, Alkaline Phosphatase 60, Total Bilirubin 0.5, Direct Bilirubin 0.1, Total Creatine Kinase 41, Creatine Kinase MB 1.1, Creatine Kinase MB Relative Index 2.68, Troponin I < 0.02, BO-Bra-B-Type Natriuretic Peptide 1121H, Total Protein 6.4, Albumin 3.2, Albumin/Globulin Ratio 1.00, Lipase 130 02/02/17 19:09: Total Creatine Kinase 36, Creatine Kinase MB 1.2, Creatine Kinase MB Relative Index 3.33, Troponin I < 0.02 02/02/17 23:41: Total Creatine Kinase 38, Creatine Kinase MB 1.0, Creatine Kinase MB Relative Index 2.63, Troponin I 0.02 02/03/17 06:54: Nucleated Red Blood Cells % (auto) 0.0, Anion Gap 5L, Glomerular Filtration Rate > 60.0, Calcium Level 8.5L, Aspartate Amino Transf (AST/SGOT) 15, Alanine Aminotransferase (ALT/SGPT) 17, Alkaline Phosphatase 58, Total Bilirubin 0.5, Total Protein 6.2L, Albumin 3.0L, Albumin/Globulin Ratio 0.94L, Erythrocyte Sedimentation Rate 17, Blood Urea Nitrogen 8, Creatinine 0.85, Sodium Level 145 , Potassium Level 3.9, Chloride Level 108H, Carbon Dioxide Level 32, Magnesium Level 2.1, C-Reactive Protein, Quantitative < 0.30, Thyroid Stimulating Hormone (TSH) 2.570, Free Thyroxine Index 5.5H, Thyroxine (T4) 15.2H, Triiodothyronine ( T3) Uptake 36 CBC/BMP Laboratory Tests 02/02/17 16:06 Red Blood Count 4.03, Mean Corpuscular Volume 83.4, Mean Corpuscular Hemoglobin 27.0, Mean Corpuscular Hemoglobin Concent 32.4, Red Cell Distribution Width 15.5 H, Neutrophils (%) (Auto) 76.7 H, Lymphocytes (%) (Auto) 11.9 L, Monocytes (%) (Auto) 8.5 H, Eosinophils (%) (Auto) 2.1, Basophils (%) (Auto) 0.5, Neutrophils # (Auto) 5.0, Lymphocytes # (Auto) 0.8 L, Monocytes # (Auto) 0.6, Eosinophils # (Auto) 0.1, Basophils # (Auto) 0.0 02/03/17 06:54 Red Blood Count 4.01, Mean Corpuscular Volume 84.3, Mean Corpuscular Hemoglobin 26.9 L, Mean Corpuscular Hemoglobin Concent 32.0, Red Cell Distribution Width 15.8 H, Calcium Level 8.5 L, Aspartate Amino Transf (AST/SGOT) 15, Alanine Aminotransferase (ALT/SGPT) 17, Alkaline Phosphatase 58, Total Bilirubin 0.5, Total Protein 6.2 L, Albumin 3.0 L SOL CALVILLO PA-C Feb 03, 2017 12:26 ANGÉLICA HERNANDEZ MD Feb 03, 2017 14:27
[2017-02-03] MEDS ORDERED: PANTOPRAZOLE 40MG TAB (PROTONIX) PO SCH (12:30)
[2017-02-03 16:00] VITALS: BP 138/68
[2017-02-03 16:30] VITALS: BP 153/68
--- NOTE | 2017-02-03 17:58 | ECGEPIP ---
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
--- NOTE | 2017-02-03 20:08 | ECGEPIP ---
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
[2017-02-03 21:31] VITALS: BP 159/72
[2017-02-04 01:37] VITALS: BP 149/82
[2017-02-04 04:15] VITALS: BP 159/75
[2017-02-04] MEDS: LEVOTHYROXINE 88MCG TABLET (0.088 MG) PO SCH (05:15)
[2017-02-04 06:02] LABS: MEAN CORPUSCULAR HEMOGLOBIN 26.8 pg (27.0-33.0); MEAN CORPUSCULAR HGB CONC 32.4 g/dl (32.0-36.5); MEAN CORPUSCULAR VOLUME 82.7 fl (80.0-96.0); PLATELET COUNT, AUTOMATED 225 10^3/uL (150-450); RED CELL DISTRIBUTION WIDTH 15.7 % (11.5-14.5); WHITE BLOOD COUNT 5.9 10^3/uL (4.0-10.0)
[2017-02-04 06:27] LABS: ALBUMIN 3.1 GM/DL (3.2-5.2); ALBUMIN/GLOBULIN RATIO 0.94 (1.00-1.93); ALKALINE PHOSPHATASE 61 U/L (45-117); ALT/SGPT 17 U/L (12-78); ANION GAP 8 MEQ/L (8-16); AST/SGOT 12 U/L (7-37); BILIRUBIN,TOTAL 0.5 MG/DL (0.2-1.0); BLOOD UREA NITROGEN 10 MG/DL (7-18); CALCIUM LEVEL 9.1 MG/DL (8.8-10.2); CARBON DIOXIDE LEVEL 30 MEQ/L (21-32); CHLORIDE LEVEL 103 MEQ/L (98-107); CREATININE FOR GFR 0.84 MG/DL (0.55-1.02); GLOMERULAR FILTRATION RATE > 60.0 (>32); GLUCOSE, FASTING 116 MG/DL (83-110); MAGNESIUM LEVEL 1.8 MG/DL (1.8-2.4); POTASSIUM SERUM 3.7 MEQ/L (3.5-5.1); SODIUM LEVEL 141 MEQ/L (136-145); TOTAL PROTEIN 6.4 GM/DL (6.4-8.2)
[2017-02-04 08:00] VITALS: BP 144/70
[2017-02-04] MEDS: OMEPRAZOLE 20 MG CAP PO SCH (08:10)
[2017-02-04] MEDS: ATORVASTATIN 20 MG TAB PO SCH (08:10)
[2017-02-04] MEDS: SENOKOT S TAB PO SCH (08:10)
[2017-02-04 08:11] VITALS: BP 144/70
[2017-02-04] MEDS: SPIRONOLACTONE 12.5MG PER 1/2 TABLET PO SCH (08:11)
[2017-02-04] MEDS: ISOSORBIDE MON. (IMDUR) 60 MG XR TAB PO SCH (08:11)
[2017-02-04] MEDS: ASPIRIN 81 MG ENTERIC TAB PO SCH (08:12)
[2017-02-04] MEDS: APIXABAN 5 MG TAB (ELIQUIS) PO SCH (08:12)
[2017-02-04] MEDS: FUROSEMIDE 20 MG TAB PO SCH (08:12)
[2017-02-04] MEDS: AMIODARONE 200 MG TAB (PACERONE) PO SCH (08:12)
[2017-02-04] MEDS: VITAMIN D 1,000 INTERNATIONAL UNITS TABLET PO SCH (08:12)
[2017-02-04] MEDS: LOSARTAN 50 MG TAB PO SCH (08:12)
[2017-02-04 12:00] VITALS: BP 127/64
--- NOTE | 2017-02-05 08:28 | ECHO ---
DATE OF PROCEDURE: 02/03/2017 REFERRING PROVIDER: Shanda Gonzalez MD PRIMARY CLUTCH SPECIALIST: Isaias Ordonez MD PATIENT LOCATION: Room 3227 REASON FOR THE ECHOCARDIOGRAM: Chest pain. 2D MEASUREMENTS: IVS: 1.3 cm LV: 4.8 cm LVPW: 1.3 cm LA: 4.3 cm Aorta: 2.9 cm RVC: 1.3 cm DOPPLER MEASUREMENTS: Peak velocity across the aortic valve 1.2 m/s Peak velocity across the LVOT 0.8 m/s Mitral E 0.63 Mitral A 0.64 with a ratio of greater than 1.0 Maximum tricuspid valve velocity 2.7 m/s 2D COMMENTS: 1. Normal left ventricular size with mildly increased left ventricular wall thickness with depressed global left ventricular systolic function. The mid as well as the apical septum appear to be akinetic. 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 The estimated global left ventricular systolic function is 35%. 2. Mildly enlarged left atrium. Normal right atrium and left ventricle. 3. The atrial septum did not reveal any defect, but there was a small color flow jet noted using color Doppler that could represent a patent foramen ovale, tiny, with left to right shunt. 4. Normal aortic root. 5. Trace pericardial effusion noted, no evidence of cardiac tamponade. 6. Mildly calcified aortic valve with normal leaflet excursion. Mildly calcified mitral annulus with normal anterior mitral valve leaflet motion. Normal tricuspid valve and pulmonic valve. The proximal pulmonary artery branches were not well visualized. 7. The inferior vena cava was normal in size, central venous pressure is most likely normal. Doppler, it detects mild mitral regurgitation, mild tricuspid regurgitation. The calculated pulmonary artery systolic pressure varied between 30-40 mmHg. Assessment of the left ventricular systolic function appeared to be normal. IMPRESSION: 1. Moderate global left ventricular systolic dysfunction with regional wall motion abnormalities consistent probably with underlying coronary artery disease. Preserved left ventricular wall thickness. Left ventricular diastolic function appeared to be normal. 2. Aortic valve sclerosis without stenosis or aortic regurgitation. 3. Mitral annulus calcification with mild mitral regurgitation and mildly enlarged left atrium. 4. Mild tricuspid regurgitation with probably mild to moderate hypertension. 5. A patent foramen ovale (PFO) was noted in limited views with a small/tiny to left to right shunt. 6. Trace pericardial effusions, no evidence of cardiac tamponade. 7. Patient was noted during the test to be bradycardic at times with a heart rate between 50-55 beats per minute.
[2017-02-05] MEDS ORDERED: INFLUENZA VIRUS VACCINE HIGH DOSE 0.5 ML SYRINGE (90662) IM ONE (09:00)
--- NOTE | 2017-02-05 18:31 | DS.PDOC ---
Discharge Summary General Date of Admission Feb 02, 2017 at 21:05 Date of Discharge 02/04/17 Primary Care Physician: SHAD PETERSON PA-C Attending Physician: ANGÉLICA MATOS MD Discharge Summary PROCEDURES PERFORMED DURING STAY: Echocardiogram 02/03/17 ADMITTING DIAGNOSES: L sided chest pain. DISCHARGE DIAGNOSES: Chest pain-resolved. Bradycardia- resolving. Pulmonary nodule- stable. Chronic anemia- neg FOBT. Paroxysmal atrial fibrillation. CAD. HTN. Hypothyroidism. Meniere. OA. Diverticulosis. DDD. Spinal stenosis-mild. COMPLICATIONS/CHIEF COMPLAINT: Chest Pain. BRIEF HISTORY/HOSPITAL COURSE: This is a 82 y/o female who presented to the ED at the time of admission with complaints of Left sided chest pain since the morning. Pain was unrelieved with nitroglycerin and GI cocktail. She had no elevations of her cardiac enzymes. She had a negative CT angio for pulmonary embolism. Patient was admitted to the PCU for observation. On the unit, the patient had some complaints of chest pain with ambulation. She was bradycardic on telemetry. Case was discussed with her salary manager. Her Bisoprolol was held. She also has chronic anemia, FOBT was negative. At the time of discharge, patient was free of chest pain for over 24hr. Her bradycardia had resolved with the discontinuation of her bisoprolol. Anticipated outpatient stress test per cardiology. DISCHARGE MEDICATIONS: Please see below. ALLERGIES: Please see below. PHYSICAL EXAMINATION ON DISCHARGE: VITAL SIGNS: Please see below. GENERAL: in no acute distress HEENT: mucus membranes moist CARDIOVASCULAR EXAMINATION: bradycardic, regular rhythm, no murmurs RESPIRATORY EXAMINATION: clear bilaterally, no wheezing. ABDOMINAL EXAMINATION: soft, nontender EXTREMITIES: no edema, cyanosis LABORATORY DATA: Please see below. IMAGING: Vascular US 02/03/17: "No evidence for deep venous thrombosis left lower extremity" CXR 02/03/17 "No acute cardiopulmonary process appreciated." CT angio 02/03/17 "1. No evidence of pulmonary embolism. 2. Atelectasis in the left lower lobe. 3. Stable 1.1 x 0.9 cm nodule in the anterior right upper lobe. CT/PET scan or biopsy could be considered. Alternatively, a short interval CT follow-up is recommended. 4. Moderate sized hiatal hernia. 5. Stable biliary pneumatosis." Echocardiogram 02/03/17: "1. Moderate global left ventricular systolic dysfunction with regional wall motion abnormalities consistent probably with underlying coronary artery disease. Preserved left ventricular wall thickness. Left ventricular diastolic function appeared to be normal. 2. Aortic valve sclerosis without stenosis or aortic regurgitation. 3. Mitral annulus calcification with mild mitral regurgitation and mildly enlarged left atrium. 4. Mild tricuspid regurgitation with probably mild to moderate hypertension. 5. A patent foramen ovale (PFO) was noted in limited views with a small/tiny to left to right shunt. 6. Trace pericardial effusions, no evidence of cardiac tamponade. 7. Patient was noted during the test to be bradycardic at times with a heart rate between 50-55 beats per minute." PROGNOSIS: good ACTIVITY: As tolerated. DIET: As tolerated. DISCHARGE PLAN: Home DISPOSITION: Home, Self-Care. DISCHARGE INSTRUCTIONS: 1. f/u with cardiology, outpatient cardiac stress test ITEMS TO FOLLOWUP ON ON OUTPATIENT: none DISCHARGE CONDITION: Stable. TIME SPENT ON DISCHARGE: Greater than 30 minutes. Vital Signs/I&Os Vital Signs Date Time Temp Pulse Resp B/P (MAP) Pulse Ox O2 Delivery O2 Flow Rate FiO2 02/04/17 12:00 97.3 60 20 127/64 (85) 91 Room Air I&O- Last 24 Hours up to 6 AM 02/05/17 06:00 Intake Total 480 ml Output Total 600 ml Balance -120 ml Discharge Medications Scheduled Amiodarone HCl (Amiodarone HCl) 200 Mg Tab, 200 MG PO DAILY, (Reported) Apixaban Base (Eliquis) 5 Mg Tab, 5 MG PO BID, (Reported) Aspirin (Aspirin 81) 81 Mg Tab, 81 MG PO DAILY, (Reported) Atorvastatin Calcium (Atorvastatin Calcium) 40 Mg Tab, 40 MG PO DAILY, (Reported ) Furosemide (Furosemide) 20 Mg Tab, 20 MG PO DAILY, (Reported) Isosorbide Mononitrate (Isosorbide Mononitrate ER) 60 Mg Tab, 60 MG PO DAILY, ( Reported) Levothyroxine Sodium (Synthroid) 88 Mcg Tab, 88 MCG PO DAILY, (Reported) Losartan Potassium (Losartan Potassium) 100 Mg Tab, 100 MG PO DAILY, (Reported) Omeprazole (Omeprazole) 40 Mg Cap, 40 MG PO DAILY, (Reported) Spironolactone (Spironolactone) 25 Mg Tab, 12.5 MG PO DAILY, (Reported) Vitamin D (Vitamin D) 2,000 Unit Cap, 2,000 UNIT PO DAILY, (Reported) Scheduled PRN Nitroglycerin (Nitrostat) 0.4 Mg Subl, 0.4 MG SL Q5MP PRN for CHEST PAIN, ( Reported) Allergies Coded Allergies: Unclassified Drugs (Verified Adverse Reaction, Intermediate, NEBULIZER TREATMENT - BREATHIG WORSE, 01/05/17) GME ATTESTATION GME ATTESTATION My faculty preceptor for this patient encounter was physically present during the encounter and was fully available. All aspects of the patient interview, examination, medical decision making process, and medical care plan development were reviewed and approved by the faculty preceptor. The faculty preceptor is aware and concurs with the plan as stated in the body of this note and will attest to such by his/her cosignature. SOPHIA LI DO Feb 05, 2017 18:31
== END 2017-02-04 14:48 | disposition home or self-care (01) ==
LOC: M ED 15:38 → M ED INP 21:05 → M PCU 21:05
PROVIDERS: ADMIT Hospitalist; ATTEND Family Medicine
DX: R07.89 Other chest pain (principal); I10 Essential (primary) hypertension; E03.9 Hypothyroidism, unspecified; K44.9 Diaphragmatic hernia without obstruction or gangrene; K29.50 Unspecified chronic gastritis without bleeding; I48.0 Paroxysmal atrial fibrillation; D64.9 Anemia, unspecified; R91.8 Other nonspecific abnormal finding of lung field; K22.2 Esophageal obstruction; H81.10 Benign paroxysmal vertigo, unspecified ear; H81.09 Meniere's disease, unspecified ear; M19.90 Unspecified osteoarthritis, unspecified site; K57.30 Diverticulosis of large intestine without perforation or abscess without bleeding; I25.10 Atherosclerotic heart disease of native coronary artery without angina pectoris; M21.372 Foot drop, left foot; Z85.038 Personal history of other malignant neoplasm of large intestine; Z79.82 Long term (current) use of aspirin; Z79.02 Long term (current) use of antithrombotics/antiplatelets; Z79.899 Other long term (current) drug therapy
CPT/HCPCS: 36415; 71010; 71275; 80048; 80053; 80076; 82550; 82553; 83690; 83735; 83880; 84436; 84443; 84479; 84484; 85025; 85027; 85652; 86140; 93005; 93041; 93306; 93971; 94760; 97161; 99285; Q9967

== ENCOUNTER → 2017-03-23 | Outpatient (CLI) | payer MEDICARE ==
[2017-03-23 17:45] LABS: ANION GAP 9 MEQ/L (8-16); BLOOD UREA NITROGEN 16 MG/DL (7-18); CARBON DIOXIDE LEVEL 27 MEQ/L (21-32); CHLORIDE LEVEL 107 MEQ/L (98-107); CREATININE FOR GFR 0.91 MG/DL (0.55-1.30); GLOMERULAR FILTRATION RATE > 60.0 (>32); GLUCOSE, FASTING 86 MG/DL (70-100); SODIUM LEVEL 143 MEQ/L (136-145)
[2017-03-23 18:02] LABS: HEMATOCRIT 37.1 % (36.0-47.0); HEMOGLOBIN 11.8 g/dl (12.0-16.0); MEAN CORPUSCULAR HEMOGLOBIN 27.1 pg (27.0-33.0); MEAN CORPUSCULAR HGB CONC 31.8 g/dl (32.0-36.5); MEAN CORPUSCULAR VOLUME 85.1 fl (80.0-96.0); PLATELET COUNT, AUTOMATED 285 10^3/uL (150-450); RED BLOOD COUNT 4.36 10^6/uL (4.00-5.40); RED CELL DISTRIBUTION WIDTH 15.8 % (11.5-14.5); WHITE BLOOD COUNT 6.9 10^3/uL (4.0-10.0)
== END ==
LOC: M SMT 15:46
DX: I50.9 Heart failure, unspecified (principal)
CPT/HCPCS: 80048

== ENCOUNTER 2017-04-18 15:04 | Inpatient (IN) | payer MEDICARE ==
[2017-04-18 16:13] LABS: BASO % 0.1 % (0.0-1.0); EOS % 0.1 % (0.0-3.0); HEMATOCRIT 34.9 % (36.0-47.0); HEMOGLOBIN 11.3 g/dl (12.0-16.0); IMMATURE GRANULOCYTE % 0.3 % (0-3.0); LYMPH % 1.5 % (24.0-44.0); MEAN CORPUSCULAR HEMOGLOBIN 27.5 pg (27.0-33.0); MEAN CORPUSCULAR HGB CONC 32.4 g/dl (32.0-36.5); MEAN CORPUSCULAR VOLUME 84.9 fl (80.0-96.0); MONO # 0.5 10^3/uL (0.0-0.8); MONO % 4.9 % (0.0-5.0); NEUTROPHILS # 8.7 10^3/uL (1.8-7.7); NEUTROPHILS % 93.1 % (36.0-66.0); PLATELET COUNT, AUTOMATED 209 10^3/uL (150-450); RED BLOOD COUNT 4.11 10^6/uL (4.00-5.40); RED CELL DISTRIBUTION WIDTH 15.5 % (11.5-14.5); WHITE BLOOD COUNT 9.4 10^3/uL (4.0-10.0)
[2017-04-18 16:36] LABS: LACTIC ACID SEPSIS PROTOCOL 2.9 MMOL/L (0.4-2.0)
[2017-04-18 16:37] LABS: ALBUMIN 3.2 GM/DL (3.2-5.2); ALKALINE PHOSPHATASE 279 U/L (45-117); ALT/SGPT 343 U/L (12-78); AMYLASE 27 U/L (25-115); ANION GAP 11 MEQ/L (8-16); AST/SGOT 778 U/L (7-37); BILIRUBIN,DIRECT 0.9 MG/DL (0.0-0.2); BILIRUBIN,TOTAL 1.5 MG/DL (0.2-1.0); BLOOD UREA NITROGEN 14 MG/DL (7-18); CALCIUM LEVEL 8.6 MG/DL (8.8-10.2); CARBON DIOXIDE LEVEL 25 MEQ/L (21-32); CHLORIDE LEVEL 103 MEQ/L (98-107); CPK CREATINE PHOSPHOKINASE 45 U/L (26-192); CREATININE FOR GFR 0.97 MG/DL (0.55-1.30); GLOMERULAR FILTRATION RATE 58.7 (>32); GLUCOSE, FASTING 150 MG/DL (70-100); LIPASE 144 U/L (73-393); MB/CK RELATIVE INDEX 2.22 (< OR =4); POTASSIUM SERUM 3.9 MEQ/L (3.5-5.1); SODIUM LEVEL 139 MEQ/L (136-145); TOTAL PROTEIN 6.1 GM/DL (6.4-8.2); TROPONIN I < 0.02 NG/ML (< 0.10)
[2017-04-18] MEDS ORDERED: ISOVUE-370 76% 100ML VIAL (Q9967) As Ordered (16:37)
[2017-04-18 16:46] LABS: LYMPH # 0.1 10^3/uL (1.5-4.5); POSITIVE DIFF POS FLAG
[2017-04-18 18:15] LABS: KETONE, URINE AUTO RFX NEGATIVE (NEGATIVE); LEUKOCYTE ESTERASE UR AUTO RFX TRACE (NEGATIVE); NITRITE, URINE AUTO RFX POSITIVE (NEGATIVE); RBC, URINE AUTO RFX 6 /HPF (0-3); SPECIFIC GRAVITY UR AUTO RFX 1.045 (1.002-1.035); SQUAM EPITHELIAL CELL UR AURFX 1 /HPF (0-6); WBC, URINE AUTO RFX 6 /HPF (0-3)
[2017-04-18] MEDS: NS 500 ML IV (18:15)
[2017-04-18] MEDS ORDERED: MORPHINE 4 MG/ML 1ML VIAL (J2270) IV (19:45)
[2017-04-18] MEDS ORDERED: ONDANSETRON 4MG/2ML VIAL (J2405) IV (19:45)
[2017-04-18] MEDS ORDERED: traMADol 50 MG TAB PO (19:45)
[2017-04-18] MEDS ORDERED: NITROGLYCERIN 0.4 MG SUBL TABLET SL (20:15)
[2017-04-18] MEDS: SUCRALFATE 1 GM TAB PO (22:42)
[2017-04-19 05:55] LABS: BASO % 0.2 % (0.0-1.0); EOS % 0.3 % (0.0-3.0); HEMATOCRIT 32.6 % (36.0-47.0); HEMOGLOBIN 10.6 g/dl (12.0-16.0); IMMATURE GRANULOCYTE % 0.4 % (0-3.0); LYMPH # 0.5 10^3/uL (1.5-4.5); LYMPH % 4.7 % (24.0-44.0); MEAN CORPUSCULAR HEMOGLOBIN 27.2 pg (27.0-33.0); MEAN CORPUSCULAR HGB CONC 32.5 g/dl (32.0-36.5); MEAN CORPUSCULAR VOLUME 83.6 fl (80.0-96.0); MONO # 0.8 10^3/uL (0.0-0.8); MONO % 8.1 % (0.0-5.0); NEUTROPHILS # 8.6 10^3/uL (1.8-7.7); NEUTROPHILS % 86.3 % (36.0-66.0); PLATELET COUNT, AUTOMATED 211 10^3/uL (150-450); RED CELL DISTRIBUTION WIDTH 15.9 % (11.5-14.5)
[2017-04-19] MEDS: LEVOTHYROXINE 88MCG TABLET (0.088 MG) PO (05:57)
[2017-04-19 06:15] LABS: ALKALINE PHOSPHATASE 207 U/L (45-117); ALT/SGPT 297 U/L (12-78); ANION GAP 8 MEQ/L (8-16); AST/SGOT 294 U/L (7-37); BILIRUBIN,TOTAL 1.2 MG/DL (0.2-1.0); BLOOD UREA NITROGEN 12 MG/DL (7-18); CALCIUM LEVEL 8.4 MG/DL (8.8-10.2); CARBON DIOXIDE LEVEL 26 MEQ/L (21-32); CHLORIDE LEVEL 107 MEQ/L (98-107); CREATININE FOR GFR 0.85 MG/DL (0.55-1.30); GLOMERULAR FILTRATION RATE > 60.0 (>32); GLUCOSE, FASTING 95 MG/DL (70-100); POTASSIUM SERUM 3.5 MEQ/L (3.5-5.1); SODIUM LEVEL 141 MEQ/L (136-145)
[2017-04-19 06:16] LABS: LACTIC ACID SEPSIS PROTOCOL 1.2 MMOL/L (0.4-2.0)
[2017-04-19] MEDS: BISOPROLOL FUM 2.5 MG PER 1/2TAB PO (09:00)
[2017-04-19] MEDS: FUROSEMIDE 20 MG TAB PO (09:00)
[2017-04-19] MEDS: LOSARTAN 50 MG TAB PO (09:00)
[2017-04-19] MEDS: SPIRONOLACTONE 12.5MG PER 1/2 TABLET PO (10:00)
[2017-04-19] MEDS: SUCRALFATE 1 GM TAB PO ×2 (10:10→22:03)
[2017-04-19] MEDS: OMEPRAZOLE 20 MG CAP PO (10:11)
[2017-04-19] MEDS: ISOSORBIDE MON. (IMDUR) 60 MG XR TAB PO (10:11)
[2017-04-19] MEDS: ATORVASTATIN 20 MG TAB PO (10:11)
[2017-04-20 05:35] LABS: BASO % 0.4 % (0.0-1.0); EOS # 0.1 10^3/uL (0.0-0.50); EOS % 1.4 % (0.0-3.0); HEMATOCRIT 30.7 % (36.0-47.0); HEMOGLOBIN 9.9 g/dl (12.0-16.0); IMMATURE GRANULOCYTE % 0.4 % (0-3.0); LYMPH # 0.3 10^3/uL (1.5-4.5); LYMPH % 6.4 % (24.0-44.0); MEAN CORPUSCULAR HEMOGLOBIN 27.7 pg (27.0-33.0); MEAN CORPUSCULAR HGB CONC 32.2 g/dl (32.0-36.5); MEAN CORPUSCULAR VOLUME 85.8 fl (80.0-96.0); MONO # 0.5 10^3/uL (0.0-0.8); MONO % 9.8 % (0.0-5.0); NEUTROPHILS # 4.1 10^3/uL (1.8-7.7); NEUTROPHILS % 81.6 % (36.0-66.0); PLATELET COUNT, AUTOMATED 172 10^3/uL (150-450); RED BLOOD COUNT 3.58 10^6/uL (4.00-5.40); RED CELL DISTRIBUTION WIDTH 15.7 % (11.5-14.5)
[2017-04-20] MEDS: LEVOTHYROXINE 88MCG TABLET (0.088 MG) PO (05:36)
[2017-04-20 06:07] LABS: ALBUMIN 2.6 GM/DL (3.2-5.2); ALBUMIN/GLOBULIN RATIO 0.87 (1.00-1.93); ALKALINE PHOSPHATASE 158 U/L (45-117); ALT/SGPT 172 U/L (12-78); ANION GAP 7 MEQ/L (8-16); AST/SGOT 90 U/L (7-37); BILIRUBIN,TOTAL 0.9 MG/DL (0.2-1.0); BLOOD UREA NITROGEN 13 MG/DL (7-18); CALCIUM LEVEL 8.4 MG/DL (8.8-10.2); CARBON DIOXIDE LEVEL 28 MEQ/L (21-32); CHLORIDE LEVEL 106 MEQ/L (98-107); GLOMERULAR FILTRATION RATE > 60.0 (>32); GLUCOSE, FASTING 93 MG/DL (70-100); POTASSIUM SERUM 3.6 MEQ/L (3.5-5.1); SODIUM LEVEL 141 MEQ/L (136-145); TOTAL PROTEIN 5.6 GM/DL (6.4-8.2)
[2017-04-20] MEDS: BACTRIM 160MG/800MG DS TAB PO ×2 (09:00→20:41)
[2017-04-20] MEDS: ATORVASTATIN 20 MG TAB PO (09:51)
[2017-04-20] MEDS: FUROSEMIDE 20 MG TAB PO (09:51)
[2017-04-20] MEDS: BISOPROLOL FUM 2.5 MG PER 1/2TAB PO (09:51)
[2017-04-20] MEDS: LOSARTAN 50 MG TAB PO (09:52)
[2017-04-20] MEDS: ISOSORBIDE MON. (IMDUR) 60 MG XR TAB PO (09:52)
[2017-04-20] MEDS: OMEPRAZOLE 20 MG CAP PO (09:52)
[2017-04-20] MEDS: SPIRONOLACTONE 12.5MG PER 1/2 TABLET PO (09:56)
[2017-04-20] MEDS: SUCRALFATE 1 GM TAB PO ×2 (09:56→20:41)
[2017-04-20 10:00] LABS: CARCINOEMBRYONIC ANTIGEN 16.2 NG/ML (<2.5)
[2017-04-20 14:47] LABS: INR 1.13; PROTHROMBIN TIME 14.7 SECONDS (12.4-14.5)
[2017-04-20] MEDS ORDERED: LIDOCAINE 1% MDV 20ML VIAL As Ordered (15:11)
[2017-04-21] MEDS: LEVOTHYROXINE 88MCG TABLET (0.088 MG) PO (06:11)
[2017-04-21 06:47] LABS: BASO % 0.4 % (0.0-1.0); EOS # 0.1 10^3/uL (0.0-0.50); HEMATOCRIT 32.2 % (36.0-47.0); HEMOGLOBIN 10.4 g/dl (12.0-16.0); IMMATURE GRANULOCYTE % 0.2 % (0-3.0); LYMPH # 0.4 10^3/uL (1.5-4.5); LYMPH % 9.2 % (24.0-44.0); MEAN CORPUSCULAR HEMOGLOBIN 27.4 pg (27.0-33.0); MEAN CORPUSCULAR HGB CONC 32.3 g/dl (32.0-36.5); MEAN CORPUSCULAR VOLUME 84.7 fl (80.0-96.0); MONO # 0.5 10^3/uL (0.0-0.8); MONO % 11.9 % (0.0-5.0); NEUTROPHILS # 3.4 10^3/uL (1.8-7.7); NEUTROPHILS % 76.3 % (36.0-66.0); PLATELET COUNT, AUTOMATED 175 10^3/uL (150-450); RED CELL DISTRIBUTION WIDTH 15.5 % (11.5-14.5); WHITE BLOOD COUNT 4.5 10^3/uL (4.0-10.0)
[2017-04-21 07:13] LABS: ALBUMIN 2.8 GM/DL (3.2-5.2); ALBUMIN/GLOBULIN RATIO 0.85 (1.00-1.93); ALKALINE PHOSPHATASE 151 U/L (45-117); ALT/SGPT 120 U/L (12-78); ANION GAP 8 MEQ/L (8-16); AST/SGOT 38 U/L (7-37); BILIRUBIN,TOTAL 0.8 MG/DL (0.2-1.0); BLOOD UREA NITROGEN 13 MG/DL (7-18); CALCIUM LEVEL 8.5 MG/DL (8.8-10.2); CARBON DIOXIDE LEVEL 27 MEQ/L (21-32); CHLORIDE LEVEL 105 MEQ/L (98-107); CREATININE FOR GFR 0.83 MG/DL (0.55-1.30); GLOMERULAR FILTRATION RATE > 60.0 (>32); GLUCOSE, FASTING 92 MG/DL (70-100); POTASSIUM SERUM 3.4 MEQ/L (3.5-5.1); SODIUM LEVEL 140 MEQ/L (136-145); TOTAL PROTEIN 6.1 GM/DL (6.4-8.2)
[2017-04-21] MEDS: BACTRIM 160MG/800MG DS TAB PO ×2 (08:10→20:33)
[2017-04-21] MEDS: ISOSORBIDE MON. (IMDUR) 60 MG XR TAB PO (08:11)
[2017-04-21] MEDS: FUROSEMIDE 20 MG TAB PO (08:11)
[2017-04-21] MEDS: SUCRALFATE 1 GM TAB PO ×2 (08:11→20:33)
[2017-04-21] MEDS: BISOPROLOL FUM 2.5 MG PER 1/2TAB PO (08:11)
[2017-04-21] MEDS: LOSARTAN 50 MG TAB PO (08:12)
[2017-04-21] MEDS: OMEPRAZOLE 20 MG CAP PO (08:12)
[2017-04-21] MEDS: ATORVASTATIN 20 MG TAB PO (08:12)
[2017-04-21] MEDS: SPIRONOLACTONE 12.5MG PER 1/2 TABLET PO (08:12)
[2017-04-21] MEDS ORDERED: SENNA 8.6 MG TAB (SENOKOT) PO (21:30)
[2017-04-21] MEDS: SENNA 8.6 MG TAB (SENOKOT) PO (21:55)
[2017-04-21] MEDS: MIRALAX *UNIT DOSE* 17GM PACKET PO (21:55)
[2017-04-22] MEDS: LEVOTHYROXINE 88MCG TABLET (0.088 MG) PO (05:44)
[2017-04-22 05:53] LABS: BASO % 0.7 % (0.0-1.0); EOS # 0.1 10^3/uL (0.0-0.50); EOS % 2.5 % (0.0-3.0); HEMATOCRIT 31.8 % (36.0-47.0); HEMOGLOBIN 10.2 g/dl (12.0-16.0); IMMATURE GRANULOCYTE % 0.5 % (0-3.0); LYMPH # 0.6 10^3/uL (1.5-4.5); LYMPH % 12.7 % (24.0-44.0); MEAN CORPUSCULAR HEMOGLOBIN 27.5 pg (27.0-33.0); MEAN CORPUSCULAR HGB CONC 32.1 g/dl (32.0-36.5); MEAN CORPUSCULAR VOLUME 85.7 fl (80.0-96.0); MONO # 0.5 10^3/uL (0.0-0.8); NEUTROPHILS # 3.2 10^3/uL (1.8-7.7); NEUTROPHILS % 71.6 % (36.0-66.0); PLATELET COUNT, AUTOMATED 185 10^3/uL (150-450); RED BLOOD COUNT 3.71 10^6/uL (4.00-5.40); RED CELL DISTRIBUTION WIDTH 15.4 % (11.5-14.5); WHITE BLOOD COUNT 4.4 10^3/uL (4.0-10.0)
[2017-04-22 06:31] LABS: ALBUMIN 2.7 GM/DL (3.2-5.2); ALBUMIN/GLOBULIN RATIO 0.84 (1.00-1.93); ALKALINE PHOSPHATASE 124 U/L (45-117); ALT/SGPT 81 U/L (12-78); ANION GAP 8 MEQ/L (8-16); AST/SGOT 6 U/L (7-37); BILIRUBIN,TOTAL 0.4 MG/DL (0.2-1.0); BLOOD UREA NITROGEN 11 MG/DL (7-18); CALCIUM LEVEL 8.5 MG/DL (8.8-10.2); CARBON DIOXIDE LEVEL 26 MEQ/L (21-32); CHLORIDE LEVEL 108 MEQ/L (98-107); CREATININE FOR GFR 0.83 MG/DL (0.55-1.30); GLOMERULAR FILTRATION RATE > 60.0 (>32); GLUCOSE, FASTING 94 MG/DL (70-100); POTASSIUM SERUM 3.5 MEQ/L (3.5-5.1); SODIUM LEVEL 142 MEQ/L (136-145); TOTAL PROTEIN 5.9 GM/DL (6.4-8.2)
[2017-04-22] MEDS: FUROSEMIDE 20 MG TAB PO (08:26)
[2017-04-22] MEDS: OMEPRAZOLE 20 MG CAP PO (08:26)
[2017-04-22] MEDS: ISOSORBIDE MON. (IMDUR) 60 MG XR TAB PO (08:26)
[2017-04-22] MEDS: BISOPROLOL FUM 2.5 MG PER 1/2TAB PO (08:26)
[2017-04-22] MEDS: SPIRONOLACTONE 12.5MG PER 1/2 TABLET PO (08:26)
[2017-04-22] MEDS: SENNA 8.6 MG TAB (SENOKOT) PO (08:26)
[2017-04-22] MEDS: BACTRIM 160MG/800MG DS TAB PO (08:26)
[2017-04-22] MEDS: ATORVASTATIN 20 MG TAB PO (08:26)
[2017-04-22] MEDS: LOSARTAN 50 MG TAB PO (08:27)
[2017-04-22] MEDS: SUCRALFATE 1 GM TAB PO (08:27)
[2017-04-22] MEDS: MIRALAX *UNIT DOSE* 17GM PACKET PO (08:27)
== END 2017-04-22 11:50 | disposition home or self-care (01) | DRG 437 ==
LOC: M ED 15:04 → M ED INP 19:32 → M MSPAV 21:55
PROC: 0FB13ZX Excision of Right Lobe Liver, Percutaneous Approach, Diagnostic (ICD-10-PCS; principal; 2017-04-20)
DX: C78.7 Secondary malignant neoplasm of liver and intrahepatic bile duct (principal); K76.9 Liver disease, unspecified; R74.0 Nonspecific elevation of levels of transaminase and lactic acid dehydrogenase [LDH]; E80.6 Other disorders of bilirubin metabolism; I10 Essential (primary) hypertension; E03.9 Hypothyroidism, unspecified; K44.9 Diaphragmatic hernia without obstruction or gangrene; E55.9 Vitamin D deficiency, unspecified; M15.0 Primary generalized (osteo)arthritis; H81.09 Meniere's disease, unspecified ear; R91.1 Solitary pulmonary nodule; I48.0 Paroxysmal atrial fibrillation; I25.10 Atherosclerotic heart disease of native coronary artery without angina pectoris; I25.2 Old myocardial infarction; Z85.048 Personal history of other malignant neoplasm of rectum, rectosigmoid junction, and anus; Z85.038 Personal history of other malignant neoplasm of large intestine; Z90.49 Acquired absence of other specified parts of digestive tract; Z79.82 Long term (current) use of aspirin; Z79.01 Long term (current) use of anticoagulants; Z79.899 Other long term (current) drug therapy; Z88.6 Allergy status to analgesic agent; Z88.8 Allergy status to other drugs, medicaments and biological substances

== ENCOUNTER → 2017-04-28 | Outpatient (REF) | payer MEDICARE ==
[2017-04-28 13:26] LABS: BASO % 0.5 % (0.0-1.0); EOS # 0.1 10^3/uL (0.0-0.50); EOS % 1.2 % (0.0-3.0); HEMATOCRIT 37.3 % (36.0-47.0); HEMOGLOBIN 11.6 g/dl (12.0-16.0); IMMATURE GRANULOCYTE % 1.2 % (0-3.0); LYMPH % 11.1 % (24.0-44.0); MEAN CORPUSCULAR HGB CONC 31.1 g/dl (32.0-36.5); MEAN CORPUSCULAR VOLUME 86.9 fl (80.0-96.0); MONO # 0.6 10^3/uL (0.0-0.8); MONO % 6.9 % (0.0-5.0); NEUTROPHILS # 6.8 10^3/uL (1.8-7.7); NEUTROPHILS % 79.1 % (36.0-66.0); PLATELET COUNT, AUTOMATED 375 10^3/uL (150-450); RED BLOOD COUNT 4.29 10^6/uL (4.00-5.40); RED CELL DISTRIBUTION WIDTH 15.4 % (11.5-14.5); WHITE BLOOD COUNT 8.5 10^3/uL (4.0-10.0)
[2017-04-28 13:30] LABS: GLUCOSE, FASTING 115 MG/DL (70-100)
[2017-04-28 13:31] LABS: ALBUMIN 3.5 GM/DL (3.2-5.2); ALBUMIN/GLOBULIN RATIO 1.09 (1.00-1.93); ALKALINE PHOSPHATASE 104 U/L (45-117); ALT/SGPT 28 U/L (12-78); ANION GAP 8 MEQ/L (8-16); AST/SGOT 9 U/L (7-37); BILIRUBIN,TOTAL 0.4 MG/DL (0.2-1.0); BLOOD UREA NITROGEN 12 MG/DL (7-18); CALCIUM LEVEL 9.2 MG/DL (8.8-10.2); CARBON DIOXIDE LEVEL 26 MEQ/L (21-32); CHLORIDE LEVEL 107 MEQ/L (98-107); CREATININE FOR GFR 1.13 MG/DL (0.55-1.30); GLOMERULAR FILTRATION RATE 49.2 (>32); POTASSIUM SERUM 4.2 MEQ/L (3.5-5.1); SODIUM LEVEL 141 MEQ/L (136-145); TOTAL PROTEIN 6.7 GM/DL (6.4-8.2)
== END ==
LOC: M SFHCADAM 10:03
DX: C78.7 Secondary malignant neoplasm of liver and intrahepatic bile duct (principal); R78.81 Bacteremia; C18.9 Malignant neoplasm of colon, unspecified
CPT/HCPCS: 80053

== ENCOUNTER → 2017-05-05 | Outpatient (CLI) | payer MEDICARE | LOC: M PLARAD 09:25 | DX: C19 Malignant neoplasm of rectosigmoid junction (principal) | CPT/HCPCS: 78815 ==

== ENCOUNTER 2017-06-25 18:52 | Emergency (ER) | payer MEDICARE ==
[2017-06-25 18:24] LABS: BASO % 0.4 % (0.0-1.0); HEMATOCRIT 34.6 % (36.0-47.0); HEMOGLOBIN 11.1 g/dl (12.0-15.5); IMMATURE GRANULOCYTE % 0.4 % (0-3.0); LYMPH # 0.6 10^3/uL (1.5-4.5); LYMPH % 11.5 % (24.0-44.0); MEAN CORPUSCULAR HEMOGLOBIN 27.1 pg (27.0-33.0); MEAN CORPUSCULAR HGB CONC 32.1 g/dl (32.0-36.5); MEAN CORPUSCULAR VOLUME 84.4 fl (80.0-96.0); MONO # 0.4 10^3/uL (0.0-0.8); NEUTROPHILS # 4.4 10^3/uL (1.8-7.7); NEUTROPHILS % 79.7 % (36.0-66.0); PLATELET COUNT, AUTOMATED 183 10^3/uL (150-450); RED CELL DISTRIBUTION WIDTH 14.8 % (11.5-14.5); WHITE BLOOD COUNT 5.5 10^3/uL (4.0-10.0)
[2017-06-25 18:27] LABS: INR 1.35
[2017-06-25 18:30] LABS: D-DIMER QUANT 422.3 ng/ml (<500)
[2017-06-25 18:33] LABS: KETONE, URINE AUTO RFX NEGATIVE (NEGATIVE); LEUKOCYTE ESTERASE UR AUTO RFX NEGATIVE (NEGATIVE); NITRITE, URINE AUTO RFX NEGATIVE (NEGATIVE); RBC, URINE AUTO RFX 0 /HPF (0-3); SPECIFIC GRAVITY UR AUTO RFX 1.003 (1.002-1.035); SQUAM EPITHELIAL CELL UR AURFX 0 /HPF (0-6); WBC, URINE AUTO RFX 1 /HPF (0-3)
[2017-06-25 18:42] LABS: ALBUMIN/GLOBULIN RATIO 0.88 (1.00-1.93); ALKALINE PHOSPHATASE 61 U/L (45-117); ALT/SGPT 14 U/L (12-78); ANION GAP 6 MEQ/L (8-16); AST/SGOT 12 U/L (7-37); BILIRUBIN,DIRECT 0.2 MG/DL (0.0-0.2); BILIRUBIN,TOTAL 0.8 MG/DL (0.2-1.0); BLOOD UREA NITROGEN 9 MG/DL (7-18); CALCIUM LEVEL 8.9 MG/DL (8.8-10.2); CARBON DIOXIDE LEVEL 30 MEQ/L (21-32); CHLORIDE LEVEL 110 MEQ/L (98-107); CPK CREATINE PHOSPHOKINASE 43 U/L (26-192); CREATININE FOR GFR 0.98 MG/DL (0.55-1.30); FREE T4 1.47 NG/DL (0.76-1.46); GLUCOSE, FASTING 147 MG/DL (70-100); LIPASE 128 U/L (73-393); POTASSIUM SERUM 3.7 MEQ/L (3.5-5.1); SODIUM LEVEL 146 MEQ/L (136-145); TOTAL PROTEIN 6.4 GM/DL (6.4-8.2); TROPONIN I 0.15 NG/ML (< 0.10)
[2017-06-25 18:48] LABS: CK-MB VALUE MASS 1.3 NG/ML (<3.6); MB/CK RELATIVE INDEX 3.02 (< OR =4); NT-PRO BNP 1388 PG/ML (<450); THYROID STIMULATING HORMONE 0.495 uIU/ML (0.358-3.740)
[2017-06-25 20:51] LABS: CK-MB VALUE MASS 1.8 NG/ML (<3.6); CPK CREATINE PHOSPHOKINASE 42 U/L (26-192); MB/CK RELATIVE INDEX 4.28 (< OR =4); TROPONIN I 0.19 NG/ML (< 0.10)
[2017-06-25] MEDS ORDERED: HEPARIN SOD (PORCINE) 5000 UNITS/ML VIAL IV (21:30)
[2017-06-25] MEDS: NITROGLYCERIN 0.4 MG SUBL TABLET SL ×4 (21:45→22:05)
[2017-06-25] MEDS: ASPIRIN 325 MG TAB PO (21:45)
[2017-06-25] MEDS: HEPARIN DRIP 25,000 UNITS in APPROPRIATE DILUENT 1 EA IV (21:54)
[2017-06-25] MEDS: MORPHINE 2 MG/ML 1ML SYRINGE (J2270) IV (22:26)
[2017-06-25] MEDS: NITROGLYCERIN/D5W 100MCG/ML 25 MG in APPROPRIATE DILUENT 1 EA IV (22:27)
== END 2017-06-25 23:36 | disposition short-term general hospital (02) ==
LOC: M ED 18:52
DX: I21.4 Non-ST elevation (NSTEMI) myocardial infarction (principal); I51.9 Heart disease, unspecified; Z85.05 Personal history of malignant neoplasm of liver; I51.7 Cardiomegaly; Z79.01 Long term (current) use of anticoagulants; Z79.899 Other long term (current) drug therapy; Z88.8 Allergy status to other drugs, medicaments and biological substances
CPT/HCPCS: J2270

== ENCOUNTER → 2017-07-07 | Outpatient (REF) | payer MEDICARE ==
[2017-07-08 11:41] LABS: INR 1.12; PARTIAL THROMBOPLASTIN TIME 33.7 SECONDS (26.8-37.9); PROTHROMBIN TIME 14.6 SECONDS (12.4-14.5)
[2017-07-09 10:47] LABS: CARCINOEMBRYONIC ANTIGEN 21.5 NG/ML (<2.5)
== END ==
LOC: M LAB REF 11:25
DX: Z01.818 Encounter for other preprocedural examination (principal); C50.911 Malignant neoplasm of unspecified site of right female breast; C78.7 Secondary malignant neoplasm of liver and intrahepatic bile duct; Z85.048 Personal history of other malignant neoplasm of rectum, rectosigmoid junction, and anus
CPT/HCPCS: 82378

== ENCOUNTER 2017-07-22 16:06 | Inpatient (IN) | payer MEDICARE ==
[2017-07-22] MEDS: ASPIRIN 81 MG CHEW TABLET PO (16:28)
[2017-07-22 16:32] LABS: BASO % 0.4 % (0.0-1.0); EOS # 0.1 10^3/uL (0.0-0.50); HEMATOCRIT 37.1 % (36.0-47.0); HEMOGLOBIN 11.7 g/dl (12.0-15.5); IMMATURE GRANULOCYTE % 0.3 % (0-3.0); LYMPH # 0.8 10^3/uL (1.5-4.5); LYMPH % 8.7 % (24.0-44.0); MEAN CORPUSCULAR HGB CONC 31.5 g/dl (32.0-36.5); MEAN CORPUSCULAR VOLUME 85.5 fl (80.0-96.0); MONO # 0.6 10^3/uL (0.0-0.8); MONO % 5.9 % (0.0-5.0); NEUTROPHILS # 7.8 10^3/uL (1.8-7.7); NEUTROPHILS % 83.7 % (36.0-66.0); PLATELET COUNT, AUTOMATED 249 10^3/uL (150-450); RED BLOOD COUNT 4.34 10^6/uL (4.00-5.40); RED CELL DISTRIBUTION WIDTH 16.5 % (11.5-14.5); WHITE BLOOD COUNT 9.4 10^3/uL (4.0-10.0)
[2017-07-22 17:00] LABS: ALBUMIN 3.4 GM/DL (3.2-5.2); ALBUMIN/GLOBULIN RATIO 1.13 (1.00-1.93); ALKALINE PHOSPHATASE 67 U/L (45-117); ALT/SGPT 18 U/L (12-78); ANION GAP 8 MEQ/L (8-16); AST/SGOT 10 U/L (7-37); BILIRUBIN,DIRECT < 0.1 MG/DL (0.0-0.2); BILIRUBIN,TOTAL 0.4 MG/DL (0.2-1.0); BLOOD UREA NITROGEN 20 MG/DL (7-18); CALCIUM LEVEL 8.8 MG/DL (8.8-10.2); CARBON DIOXIDE LEVEL 26 MEQ/L (21-32); CHLORIDE LEVEL 108 MEQ/L (98-107); CPK CREATINE PHOSPHOKINASE 47 U/L (26-192); CREATININE FOR GFR 0.97 MG/DL (0.55-1.30); GLOMERULAR FILTRATION RATE 58.7 (>32); GLUCOSE, FASTING 168 MG/DL (70-100); LIPASE 189 U/L (73-393); POTASSIUM SERUM 3.9 MEQ/L (3.5-5.1); SODIUM LEVEL 142 MEQ/L (136-145); TOTAL PROTEIN 6.4 GM/DL (6.4-8.2); TROPONIN I 0.23 NG/ML (< 0.10)
[2017-07-22 17:01] LABS: CK-MB VALUE MASS 2.9 NG/ML (<3.6); MB/CK RELATIVE INDEX 6.17 (< OR =4); NT-PRO BNP 1364 PG/ML (<450)
[2017-07-22] MEDS ORDERED: ISOVUE-370 76% 100ML VIAL (Q9967) As Ordered (18:03)
[2017-07-22] MEDS ORDERED: NITROGLYCERIN 0.4 MG SUBL TABLET SL (19:00)
[2017-07-22] MEDS ORDERED: ACETAMINOPHEN TAB 650MG DOSE (2X325MG) PO (19:00)
[2017-07-22] MEDS ORDERED: ONDANSETRON 4MG/2ML VIAL (J2405) IV (19:00)
[2017-07-22] MEDS ORDERED: FUROSEMIDE 20 MG TAB PO (20:00)
[2017-07-23] MEDS: METOPROLOL TART 12.5 MG PER 1/2 TAB PO (00:02)
[2017-07-23 01:28] LABS: CPK CREATINE PHOSPHOKINASE 140 U/L (26-192)
[2017-07-23 01:29] LABS: CK-MB VALUE MASS 14.5 NG/ML (<3.6); MB/CK RELATIVE INDEX 10.35 (< OR =4)
[2017-07-23 01:33] LABS: TROPONIN I 6.65 NG/ML (< 0.10)
[2017-07-23] MEDS ORDERED: MORPHINE 4 MG/ML 1ML VIAL/SYRINGE (J2270) IV (01:45)
[2017-07-23] MEDS: ENOXAPARIN 80 MG/0.8 ML SYRINGE (J1650) SC ×2 (02:10→14:51)
[2017-07-23] MEDS: LEVOTHYROXINE 88MCG TABLET (0.088 MG) PO (05:21)
[2017-07-23 05:48] LABS: HEMATOCRIT 35.9 % (36.0-47.0); HEMOGLOBIN 11.6 g/dl (12.0-15.5); MEAN CORPUSCULAR HEMOGLOBIN 27.2 pg (27.0-33.0); MEAN CORPUSCULAR HGB CONC 32.3 g/dl (32.0-36.5); MEAN CORPUSCULAR VOLUME 84.3 fl (80.0-96.0); PLATELET COUNT, AUTOMATED 187 10^3/uL (150-450); RED BLOOD COUNT 4.26 10^6/uL (4.00-5.40); RED CELL DISTRIBUTION WIDTH 16.7 % (11.5-14.5); WHITE BLOOD COUNT 6.4 10^3/uL (4.0-10.0)
[2017-07-23 06:05] LABS: ALBUMIN 2.9 GM/DL (3.2-5.2); ALKALINE PHOSPHATASE 62 U/L (45-117); ALT/SGPT 17 U/L (12-78); ANION GAP 5 MEQ/L (8-16); AST/SGOT 25 U/L (7-37); BILIRUBIN,TOTAL 0.4 MG/DL (0.2-1.0); BLOOD UREA NITROGEN 16 MG/DL (7-18); CALCIUM LEVEL 8.6 MG/DL (8.8-10.2); CARBON DIOXIDE LEVEL 28 MEQ/L (21-32); CHLORIDE LEVEL 109 MEQ/L (98-107); CREATININE FOR GFR 0.69 MG/DL (0.55-1.30); GLOMERULAR FILTRATION RATE > 60.0 (>32); GLUCOSE, FASTING 88 MG/DL (70-100); MAGNESIUM LEVEL 1.7 MG/DL (1.8-2.4); POTASSIUM SERUM 3.6 MEQ/L (3.5-5.1); SODIUM LEVEL 142 MEQ/L (136-145); TOTAL PROTEIN 5.8 GM/DL (6.4-8.2)
[2017-07-23] MEDS: VITAMIN D 1,000 INTERNATIONAL UNITS TABLET PO (09:37)
[2017-07-23] MEDS: CLOPIDOGREL 75 MG TAB PO (09:38)
[2017-07-23] MEDS: LOSARTAN 50 MG TAB PO (09:38)
[2017-07-23] MEDS: SPIRONOLACTONE 12.5MG PER 1/2 TABLET PO (09:38)
[2017-07-23] MEDS: OMEPRAZOLE 20 MG CAP PO (09:38)
[2017-07-23] MEDS: ATORVASTATIN 20 MG TAB PO (09:38)
[2017-07-23 10:59] LABS: CK-MB VALUE MASS 9.7 NG/ML (<3.6); CPK CREATINE PHOSPHOKINASE 103 U/L (26-192); MB/CK RELATIVE INDEX 9.41 (< OR =4)
[2017-07-23 17:31] LABS: CK-MB VALUE MASS 5.3 NG/ML (<3.6); CPK CREATINE PHOSPHOKINASE 67 U/L (26-192); MB/CK RELATIVE INDEX 7.91 (< OR =4)
[2017-07-23 17:37] LABS: TROPONIN I 3.29 NG/ML (< 0.10)
[2017-07-24] MEDS: ENOXAPARIN 80 MG/0.8 ML SYRINGE (J1650) SC (03:03)
[2017-07-24 05:28] LABS: HEMATOCRIT 35.4 % (36.0-47.0); HEMOGLOBIN 11.5 g/dl (12.0-15.5); MEAN CORPUSCULAR HEMOGLOBIN 27.3 pg (27.0-33.0); MEAN CORPUSCULAR HGB CONC 32.5 g/dl (32.0-36.5); MEAN CORPUSCULAR VOLUME 83.9 fl (80.0-96.0); PLATELET COUNT, AUTOMATED 202 10^3/uL (150-450); RED BLOOD COUNT 4.22 10^6/uL (4.00-5.40); RED CELL DISTRIBUTION WIDTH 16.5 % (11.5-14.5); WHITE BLOOD COUNT 5.4 10^3/uL (4.0-10.0)
[2017-07-24 05:40] LABS: MAGNESIUM LEVEL 1.9 MG/DL (1.8-2.4)
[2017-07-24] MEDS: LEVOTHYROXINE 88MCG TABLET (0.088 MG) PO (06:01)
[2017-07-24] MEDS: SPIRONOLACTONE 12.5MG PER 1/2 TABLET PO (09:58)
[2017-07-24] MEDS: ATORVASTATIN 20 MG TAB PO (09:58)
[2017-07-24] MEDS: VITAMIN D 1,000 INTERNATIONAL UNITS TABLET PO (09:58)
[2017-07-24] MEDS: LOSARTAN 50 MG TAB PO (09:58)
[2017-07-24] MEDS: OMEPRAZOLE 20 MG CAP PO (09:58)
== END 2017-07-24 14:22 | disposition home or self-care (01) | DRG 315 ==
LOC: M PCU 07-23 02:49 → M ED 16:06 → M ED INP 18:49 → M MSPAV 22:51
DX: I42.7 Cardiomyopathy due to drug and external agent (principal); I50.22 Chronic systolic (congestive) heart failure; C78.7 Secondary malignant neoplasm of liver and intrahepatic bile duct; C78.01 Secondary malignant neoplasm of right lung; I10 Essential (primary) hypertension; T45.1X5A Adverse effect of antineoplastic and immunosuppressive drugs, initial encounter; E03.9 Hypothyroidism, unspecified; M81.0 Age-related osteoporosis without current pathological fracture; I25.2 Old myocardial infarction; I25.5 Ischemic cardiomyopathy; I25.10 Atherosclerotic heart disease of native coronary artery without angina pectoris; I48.0 Paroxysmal atrial fibrillation; E78.5 Hyperlipidemia, unspecified; K27.9 Peptic ulcer, site unspecified, unspecified as acute or chronic, without hemorrhage or perforation; K21.9 Gastro-esophageal reflux disease without esophagitis; Z85.038 Personal history of other malignant neoplasm of large intestine; Z95.5 Presence of coronary angioplasty implant and graft; Z95.810 Presence of automatic (implantable) cardiac defibrillator; Z79.01 Long term (current) use of anticoagulants; Z79.899 Other long term (current) drug therapy; Z88.8 Allergy status to other drugs, medicaments and biological substances; Z90.49 Acquired absence of other specified parts of digestive tract

== ENCOUNTER → 2017-07-23 | Day surgery (SDC) | payer MEDICARE ==
[~2017-07-23] MED LIST changes: -/ESOM40CA PO; -AMIO200T PO; -ASPI1TAB PO; -ATOR40TA75 PO; -BISO5TAB5 PO; -BISO5TAB54 PO; -CRAMPS OTC PO; -DRIS1CAP PO; -ELIQ5TAB PO; -ISOS30TA4 PO; -ISOS30TAB PO; -LEVO75TA4 PO; -LEVOTYROXINE PO; -LOSA100T36 PO; -MECLIZINE PO; +MIDAZOLAM INJ 2 MG/2 ML VIAL (J2250) As Ordered; -NAPR500T PO; -NEXI40CA PO; -NITR4TASL SL; -OMEP40CA2 PO; -TYLETAB14 PO; -VITA200016 PO; -ZOFR4TAB3 PO; +fentaNYL 100 MCG/2 ML INJECTION (J3010) As Ordered
== END | disposition home or self-care (01) ==
LOC: M SDC 13:00
DX: C18.9 Malignant neoplasm of colon, unspecified (principal); Z53.09 Procedure and treatment not carried out because of other contraindication

== ENCOUNTER 2017-08-24 14:34 | Inpatient (IN) | payer MEDICARE ==
[2017-08-24] MEDS: NS 1,000 ML IV ×2 (15:20→21:22)
[2017-08-24] MEDS: ONDANSETRON 4MG/2ML VIAL (J2405) IV (15:20)
[2017-08-24] MEDS: MORPHINE 4 MG/ML 1ML VIAL/SYRINGE (J2270) IV (15:20)
[2017-08-24 15:29] LABS: BASO # 0.1 10^3/uL (0.0-0.2); BASO % 0.4 % (0.0-1.0); EOS # 0.2 10^3/uL (0.0-0.50); EOS % 1.8 % (0.0-3.0); HEMATOCRIT 40.7 % (36.0-47.0); HEMOGLOBIN 13.2 g/dl (12.0-15.5); IMMATURE GRANULOCYTE % 0.2 % (0-3.0); LYMPH # 0.8 10^3/uL (1.5-4.5); LYMPH % 6.4 % (24.0-44.0); MEAN CORPUSCULAR HEMOGLOBIN 26.5 pg (27.0-33.0); MEAN CORPUSCULAR HGB CONC 32.4 g/dl (32.0-36.5); MEAN CORPUSCULAR VOLUME 81.6 fl (80.0-96.0); MONO # 0.6 10^3/uL (0.0-0.8); MONO % 4.9 % (0.0-5.0); NEUTROPHILS # 10.9 10^3/uL (1.8-7.7); NEUTROPHILS % 86.3 % (36.0-66.0); PLATELET COUNT, AUTOMATED 277 10^3/uL (150-450); RED BLOOD COUNT 4.99 10^6/uL (4.00-5.40); RED CELL DISTRIBUTION WIDTH 15.8 % (11.5-14.5); WHITE BLOOD COUNT 12.6 10^3/uL (4.0-10.0)
[2017-08-24 15:39] LABS: INR 1.14; PROTHROMBIN TIME 14.8 SECONDS (12.1-14.4)
[2017-08-24 15:40] LABS: PARTIAL THROMBOPLASTIN TIME 29.8 SECONDS (25.4-37.6)
[2017-08-24 15:57] LABS: LACTIC ACID SEPSIS PROTOCOL 1.6 MMOL/L (0.4-2.0)
[2017-08-24 16:02] LABS: ALBUMIN 3.5 GM/DL (3.2-5.2); ALBUMIN/GLOBULIN RATIO 1.09 (1.00-1.93); ALKALINE PHOSPHATASE 88 U/L (45-117); ALT/SGPT 17 U/L (12-78); AMYLASE 45 U/L (25-115); ANION GAP 8 MEQ/L (8-16); AST/SGOT 12 U/L (7-37); BILIRUBIN,DIRECT 0.2 MG/DL (0.0-0.2); BILIRUBIN,TOTAL 0.7 MG/DL (0.2-1.0); BLOOD UREA NITROGEN 10 MG/DL (7-18); CARBON DIOXIDE LEVEL 29 MEQ/L (21-32); CHLORIDE LEVEL 107 MEQ/L (98-107); CK-MB VALUE MASS 1.9 NG/ML (<3.6); CPK CREATINE PHOSPHOKINASE 42 U/L (26-192); CREATININE FOR GFR 0.87 MG/DL (0.55-1.30); GLOMERULAR FILTRATION RATE > 60.0 (>32); GLUCOSE, FASTING 121 MG/DL (70-100); LIPASE 132 U/L (73-393); MB/CK RELATIVE INDEX 4.52 (< OR =4); POTASSIUM SERUM 4.2 MEQ/L (3.5-5.1); SODIUM LEVEL 144 MEQ/L (136-145); TOTAL PROTEIN 6.7 GM/DL (6.4-8.2); TROPONIN I < 0.02 NG/ML (< 0.10)
[2017-08-24] MEDS ORDERED: ISOVUE-370 76% 100ML VIAL (Q9967) As Ordered (16:09)
[2017-08-24 17:45] LABS: KETONE, URINE AUTO RFX NEGATIVE (NEGATIVE); LEUKOCYTE ESTERASE UR AUTO RFX NEGATIVE (NEGATIVE); NITRITE, URINE AUTO RFX NEGATIVE (NEGATIVE); RBC, URINE AUTO RFX 1 /HPF (0-3); SPECIFIC GRAVITY UR AUTO RFX 1.028 (1.002-1.035); SQUAM EPITHELIAL CELL UR AURFX 0 /HPF (0-6); WBC, URINE AUTO RFX 1 /HPF (0-3)
[2017-08-24] MEDS: MORPHINE 2 MG/ML 1ML SYRINGE (J2270) IV ×2 (17:50→21:18)
[2017-08-24] MEDS ORDERED: NITROGLYCERIN 0.4 MG SUBL TABLET SL (21:30)
[2017-08-25] MEDS: MORPHINE 4 MG/ML 1ML VIAL/SYRINGE (J2270) IV ×4 (03:48→22:30)
[2017-08-25] MEDS: LEVOTHYROXINE 100 MCG (0.1MG) VIAL IV (05:39)
[2017-08-25 06:18] LABS: BASO % 0.3 % (0.0-1.0); EOS # 0.2 10^3/uL (0.0-0.50); EOS % 1.9 % (0.0-3.0); HEMATOCRIT 33.4 % (36.0-47.0); IMMATURE GRANULOCYTE % 0.5 % (0-3.0); LYMPH # 0.9 10^3/uL (1.5-4.5); LYMPH % 10.7 % (24.0-44.0); MEAN CORPUSCULAR HEMOGLOBIN 26.5 pg (27.0-33.0); MEAN CORPUSCULAR HGB CONC 31.7 g/dl (32.0-36.5); MEAN CORPUSCULAR VOLUME 83.5 fl (80.0-96.0); MONO # 0.7 10^3/uL (0.0-0.8); NEUTROPHILS # 6.9 10^3/uL (1.8-7.7); NEUTROPHILS % 78.6 % (36.0-66.0); PLATELET COUNT, AUTOMATED 225 10^3/uL (150-450); RED CELL DISTRIBUTION WIDTH 15.9 % (11.5-14.5); WHITE BLOOD COUNT 8.8 10^3/uL (4.0-10.0)
[2017-08-25 06:26] LABS: HEMOGLOBIN 10.6 g/dl (12.0-15.5)
[2017-08-25 06:42] LABS: ALBUMIN 2.7 GM/DL (3.2-5.2); ALKALINE PHOSPHATASE 66 U/L (45-117); ALT/SGPT 13 U/L (12-78); ANION GAP 7 MEQ/L (8-16); AST/SGOT 11 U/L (7-37); BILIRUBIN,TOTAL 0.6 MG/DL (0.2-1.0); BLOOD UREA NITROGEN 9 MG/DL (7-18); CARBON DIOXIDE LEVEL 28 MEQ/L (21-32); CHLORIDE LEVEL 110 MEQ/L (98-107); CREATININE FOR GFR 0.69 MG/DL (0.55-1.30); GLOMERULAR FILTRATION RATE > 60.0 (>32); GLUCOSE, FASTING 100 MG/DL (70-100); POTASSIUM SERUM 3.9 MEQ/L (3.5-5.1); SODIUM LEVEL 145 MEQ/L (136-145); TOTAL PROTEIN 5.4 GM/DL (6.4-8.2)
[2017-08-25] MEDS: NS 1,000 ML IV ×2 (07:58→17:22)
[2017-08-25] MEDS: PANTOPRAZOLE 40MG INJ (PROTONIX) (C9113) IV (09:10)
[2017-08-25] MEDS: PREVNAR 13 VACCINE SYRINGE (CPT CODE:90670) IM (09:12)
[2017-08-25] MEDS: ONDANSETRON 4MG/2ML VIAL (J2405) IV (21:56)
[2017-08-26] MEDS: NS 1,000 ML IV ×3 (04:28→22:53)
[2017-08-26] MEDS: LEVOTHYROXINE 100 MCG (0.1MG) VIAL IV (05:30)
[2017-08-26] MEDS: HEPARIN SOD (PORCINE) 5000 UNITS/ML VIAL SQ ×3 (08:22→21:39)
[2017-08-26] MEDS: PANTOPRAZOLE 40MG INJ (PROTONIX) (C9113) IV (08:22)
[2017-08-27] MEDS: LEVOTHYROXINE 100 MCG (0.1MG) VIAL IV (05:31)
[2017-08-27 05:58] LABS: HEMATOCRIT 32.7 % (36.0-47.0); HEMOGLOBIN 10.4 g/dl (12.0-15.5); MEAN CORPUSCULAR HEMOGLOBIN 26.7 pg (27.0-33.0); MEAN CORPUSCULAR HGB CONC 31.8 g/dl (32.0-36.5); MEAN CORPUSCULAR VOLUME 84.1 fl (80.0-96.0); PLATELET COUNT, AUTOMATED 183 10^3/uL (150-450); RED BLOOD COUNT 3.89 10^6/uL (4.00-5.40); RED CELL DISTRIBUTION WIDTH 15.5 % (11.5-14.5); WHITE BLOOD COUNT 9.4 10^3/uL (4.0-10.0)
[2017-08-27 06:14] LABS: ANION GAP 8 MEQ/L (8-16); BLOOD UREA NITROGEN 6 MG/DL (7-18); CALCIUM LEVEL 7.9 MG/DL (8.8-10.2); CARBON DIOXIDE LEVEL 27 MEQ/L (21-32); CHLORIDE LEVEL 107 MEQ/L (98-107); CREATININE FOR GFR 0.45 MG/DL (0.55-1.30); GLOMERULAR FILTRATION RATE > 60.0 (>32); GLUCOSE, FASTING 81 MG/DL (70-100); MAGNESIUM LEVEL 1.7 MG/DL (1.8-2.4); POTASSIUM SERUM 3.4 MEQ/L (3.5-5.1); SODIUM LEVEL 142 MEQ/L (136-145)
[2017-08-27] MEDS: HEPARIN SOD (PORCINE) 5000 UNITS/ML VIAL SQ ×3 (06:45→21:28)
[2017-08-27] MEDS ORDERED: KCL 20MEQ IN 100ML SWI (KRUN) 20 MEQ in APPROPRIATE DILUENT 1 EA IV (07:30)
[2017-08-27] MEDS: NS 1,000 ML IV (07:56)
[2017-08-27] MEDS: MAG SULF 1GM/100ML (MAG RUN) 1 GM in APPROPRIATE DILUENT 1 EA IV (09:13)
[2017-08-27] MEDS: PANTOPRAZOLE 40MG INJ (PROTONIX) (C9113) IV (10:33)
[2017-08-27] MEDS: KCL 10MEQ/100ML SWI (KRUN) 10 MEQ in APPROPRIATE DILUENT 1 EA IV ×3 (10:34→12:59)
[2017-08-27] MEDS: MAGNESIUM CITRATE 300 ML BTL PO (14:36)
[2017-08-27] MEDS: CEPACOL LOZENGE PO (16:37)
[2017-08-27] MEDS: METOCLOPRAMIDE 10 MG TAB PO (21:27)
[2017-08-28] MEDS: NS 1,000 ML IV ×2 (00:42→13:05)
[2017-08-28] MEDS: LEVOTHYROXINE 100 MCG (0.1MG) VIAL IV (05:57)
[2017-08-28 05:58] LABS: HEMATOCRIT 33.6 % (36.0-47.0); HEMOGLOBIN 10.6 g/dl (12.0-15.5); MEAN CORPUSCULAR HEMOGLOBIN 26.4 pg (27.0-33.0); MEAN CORPUSCULAR HGB CONC 31.5 g/dl (32.0-36.5); MEAN CORPUSCULAR VOLUME 83.6 fl (80.0-96.0); PLATELET COUNT, AUTOMATED 209 10^3/uL (150-450); RED BLOOD COUNT 4.02 10^6/uL (4.00-5.40); RED CELL DISTRIBUTION WIDTH 15.4 % (11.5-14.5); WHITE BLOOD COUNT 8.8 10^3/uL (4.0-10.0)
[2017-08-28] MEDS: HEPARIN SOD (PORCINE) 5000 UNITS/ML VIAL SQ ×3 (05:59→21:24)
[2017-08-28 06:17] LABS: ANION GAP 9 MEQ/L (8-16); BLOOD UREA NITROGEN 6 MG/DL (7-18); CARBON DIOXIDE LEVEL 26 MEQ/L (21-32); CHLORIDE LEVEL 107 MEQ/L (98-107); CREATININE FOR GFR 0.36 MG/DL (0.55-1.30); GLOMERULAR FILTRATION RATE > 60.0 (>32); GLUCOSE, FASTING 88 MG/DL (70-100); MAGNESIUM LEVEL 2.1 MG/DL (1.8-2.4); POTASSIUM SERUM 3.5 MEQ/L (3.5-5.1); SODIUM LEVEL 142 MEQ/L (136-145)
[2017-08-28] MEDS: METOCLOPRAMIDE 10 MG TAB PO ×4 (09:53→21:00)
[2017-08-28] MEDS: PANTOPRAZOLE 40MG INJ (PROTONIX) (C9113) IV (09:53)
[2017-08-28] MEDS: CEPACOL LOZENGE PO (09:53)
[2017-08-28] MEDS ORDERED: METOPROLOL TART 12.5 MG PER 1/2 TAB As Ordered (18:06)
[2017-08-28] MEDS: METOPROLOL TART 12.5 MG PER 1/2 TAB PO (18:18)
[2017-08-29] MEDS: LEVOTHYROXINE 100 MCG (0.1MG) VIAL IV (05:28)
[2017-08-29 05:57] LABS: HEMATOCRIT 31.3 % (36.0-47.0); HEMOGLOBIN 10.3 g/dl (12.0-15.5); MEAN CORPUSCULAR HEMOGLOBIN 26.9 pg (27.0-33.0); MEAN CORPUSCULAR HGB CONC 32.9 g/dl (32.0-36.5); MEAN CORPUSCULAR VOLUME 81.7 fl (80.0-96.0); PLATELET COUNT, AUTOMATED 235 10^3/uL (150-450); RED BLOOD COUNT 3.83 10^6/uL (4.00-5.40); RED CELL DISTRIBUTION WIDTH 15.6 % (11.5-14.5)
[2017-08-29 06:23] LABS: ANION GAP 12 MEQ/L (8-16); BLOOD UREA NITROGEN 5 MG/DL (7-18); CARBON DIOXIDE LEVEL 24 MEQ/L (21-32); CHLORIDE LEVEL 107 MEQ/L (98-107); CREATININE FOR GFR 0.39 MG/DL (0.55-1.30); GLOMERULAR FILTRATION RATE > 60.0 (>32); GLUCOSE, FASTING 74 MG/DL (70-100); MAGNESIUM LEVEL 2.1 MG/DL (1.8-2.4); POTASSIUM SERUM 3.4 MEQ/L (3.5-5.1); SODIUM LEVEL 143 MEQ/L (136-145)
[2017-08-29] MEDS: ATORVASTATIN 20 MG TAB PO (08:17)
[2017-08-29] MEDS: APIXABAN 5 MG TAB (ELIQUIS) PO ×2 (08:19→10:32)
[2017-08-29] MEDS: OMEPRAZOLE 20 MG CAP PO (08:19)
[2017-08-29] MEDS: METOCLOPRAMIDE 10 MG TAB PO ×2 (08:19→13:00)
[2017-08-29] MEDS ORDERED: PILL CRUSHER/CUTTER 1 EACH XX (08:30)
[2017-08-29] MEDS: METOPROLOL TART 12.5 MG PER 1/2 TAB PO (08:33)
[2017-08-30] MEDS ORDERED: LEVOTHYROXINE 88MCG TABLET (0.088 MG) PO (06:00)
== END 2017-08-29 15:37 | disposition home or self-care (01) | DRG 389 ==
LOC: M PCU 08-25 00:38 → M ED 14:34 → M ED INP 21:22
DX: K56.52 Intestinal adhesions [bands] with complete obstruction (principal); C78.7 Secondary malignant neoplasm of liver and intrahepatic bile duct; C18.9 Malignant neoplasm of colon, unspecified; I50.22 Chronic systolic (congestive) heart failure; C78.00 Secondary malignant neoplasm of unspecified lung; E03.9 Hypothyroidism, unspecified; E78.5 Hyperlipidemia, unspecified; I11.0 Hypertensive heart disease with heart failure; I25.10 Atherosclerotic heart disease of native coronary artery without angina pectoris; E55.9 Vitamin D deficiency, unspecified; I25.2 Old myocardial infarction; I25.5 Ischemic cardiomyopathy; H81.09 Meniere's disease, unspecified ear; M51.36 Other intervertebral disc degeneration, lumbar region; I48.0 Paroxysmal atrial fibrillation; M19.90 Unspecified osteoarthritis, unspecified site; G57.32 Lesion of lateral popliteal nerve, left lower limb; Z95.810 Presence of automatic (implantable) cardiac defibrillator; Z90.49 Acquired absence of other specified parts of digestive tract; Z92.21 Personal history of antineoplastic chemotherapy; Z88.8 Allergy status to other drugs, medicaments and biological substances; Z79.01 Long term (current) use of anticoagulants; Z79.82 Long term (current) use of aspirin; Z79.899 Other long term (current) drug therapy

== ENCOUNTER → 2017-08-30 | Outpatient (REF) | payer MEDICARE ==
[2017-08-30 19:48] LABS: ANION GAP 12 MEQ/L (8-16); BLOOD UREA NITROGEN 11 MG/DL (7-18); CALCIUM LEVEL 9.3 MG/DL (8.8-10.2); CARBON DIOXIDE LEVEL 27 MEQ/L (21-32); CHLORIDE LEVEL 104 MEQ/L (98-107); CREATININE FOR GFR 0.74 MG/DL (0.55-1.30); GLUCOSE, FASTING 137 MG/DL (70-100); POTASSIUM SERUM 3.7 MEQ/L (3.5-5.1); SODIUM LEVEL 143 MEQ/L (136-145)
[2017-08-30 19:50] LABS: GLOMERULAR FILTRATION RATE > 60.0 (>32)
== END ==
LOC: M SFHCADAM 15:26
DX: K56.609 Unspecified intestinal obstruction, unspecified as to partial versus complete obstruction (principal); R53.1 Weakness
CPT/HCPCS: 80048

== ENCOUNTER 2017-09-08 13:39 | Inpatient (IN) | payer MEDICARE ==
[2017-09-08] MEDS: MORPHINE 2 MG/ML 1ML SYRINGE (J2270) IV ×2 (15:27→15:55)
[2017-09-08] MEDS: NS 1,000 ML IV (15:27)
[2017-09-08] MEDS: ONDANSETRON 4MG/2ML VIAL (J2405) IV (15:27)
[2017-09-08 15:31] LABS: BASO % 0.2 % (0.0-1.0); EOS # 0.1 10^3/uL (0.0-0.50); EOS % 0.4 % (0.0-3.0); HEMATOCRIT 42.4 % (36.0-47.0); HEMOGLOBIN 13.3 g/dl (12.0-15.5); IMMATURE GRANULOCYTE % 0.4 % (0-3.0); LYMPH # 0.7 10^3/uL (1.5-4.5); MEAN CORPUSCULAR HEMOGLOBIN 26.6 pg (27.0-33.0); MEAN CORPUSCULAR HGB CONC 31.4 g/dl (32.0-36.5); MEAN CORPUSCULAR VOLUME 84.8 fl (80.0-96.0); MONO # 0.6 10^3/uL (0.0-0.8); MONO % 4.7 % (0.0-5.0); NEUTROPHILS # 12.3 10^3/uL (1.8-7.7); NEUTROPHILS % 89.3 % (36.0-66.0); PLATELET COUNT, AUTOMATED 368 10^3/uL (150-450); RED CELL DISTRIBUTION WIDTH 15.9 % (11.5-14.5); WHITE BLOOD COUNT 13.8 10^3/uL (4.0-10.0)
[2017-09-08 15:43] LABS: INR 1.18; PROTHROMBIN TIME 15.2 SECONDS (12.1-14.4)
[2017-09-08 15:44] LABS: PARTIAL THROMBOPLASTIN TIME 28.3 SECONDS (25.4-37.6)
[2017-09-08 15:57] LABS: ALBUMIN 3.1 GM/DL (3.2-5.2); ALBUMIN/GLOBULIN RATIO 0.82 (1.00-1.93); ALKALINE PHOSPHATASE 261 U/L (45-117); ALT/SGPT 64 U/L (12-78); ANION GAP 9 MEQ/L (8-16); AST/SGOT 189 U/L (7-37); BILIRUBIN,DIRECT 1.1 MG/DL (0.0-0.2); BILIRUBIN,TOTAL 1.6 MG/DL (0.2-1.0); BLOOD UREA NITROGEN 11 MG/DL (7-18); CALCIUM LEVEL 8.9 MG/DL (8.8-10.2); CARBON DIOXIDE LEVEL 33 MEQ/L (21-32); CHLORIDE LEVEL 101 MEQ/L (98-107); CPK CREATINE PHOSPHOKINASE 34 U/L (26-192); CREATININE FOR GFR 0.87 MG/DL (0.55-1.30); GLOMERULAR FILTRATION RATE > 60.0 (>32); GLUCOSE, FASTING 147 MG/DL (70-100); LIPASE 164 U/L (73-393); SODIUM LEVEL 143 MEQ/L (136-145); TOTAL PROTEIN 6.9 GM/DL (6.4-8.2); TROPONIN I 0.02 NG/ML (< 0.10)
[2017-09-08 15:58] LABS: CK-MB VALUE MASS < 1.0 NG/ML (<3.6); MB/CK RELATIVE INDEX 2.94 (< OR =4)
[2017-09-08 16:04] LABS: LACTIC ACID SEPSIS PROTOCOL 2.8 MMOL/L (0.4-2.0)
[2017-09-08] MEDS: POTASSIUM CHLORIDE 10 MEQ SR TABLET PO (16:27)
[2017-09-08] MEDS: GASTROGRAFIN SOLUTION 30ML PO ×2 (16:27→17:10)
[2017-09-08] MEDS ORDERED: ISOVUE-370 76% 100ML VIAL (Q9967) As Ordered (17:26)
[2017-09-08] MEDS: METOCLOPRAMIDE INJ 10MG/2ML VIAL (J2765) IV (21:30)
[2017-09-08] MEDS: PIPERACILLIN/TAZOBACTAM SOD 3.375 GM in D5W MINI-BAG PLUS 50 ML IV (21:30)
[2017-09-08] MEDS: methylPREDNISolone INJ 125 MG/2 ML VIAL (J2930) IV (22:15)
[2017-09-09] MEDS ORDERED: PERCOCET 5MG/325MG TAB PO
[2017-09-09] MEDS ORDERED: BISACODYL 5 MG TAB PO
[2017-09-09] MEDS ORDERED: ONDANSETRON 4 MG TAB (S0181) PO
[2017-09-09] MEDS: APIXABAN 5 MG TAB (ELIQUIS) PO ×2 (01:23→08:04)
[2017-09-09] MEDS: METOPROLOL TART 12.5 MG PER 1/2 TAB PO ×3 (01:23→20:14)
[2017-09-09] MEDS: POTASSIUM CHLORIDE 10 MEQ SR TABLET PO ×2 (01:24→03:00)
[2017-09-09] MEDS: FUROSEMIDE 40 MG/4 ML VIAL (J1940) IV ×2 (01:25→08:04)
[2017-09-09] MEDS: LEVOTHYROXINE 88MCG TABLET (0.088 MG) PO (05:54)
[2017-09-09 06:27] LABS: HEMATOCRIT 36.8 % (36.0-47.0); HEMOGLOBIN 11.8 g/dl (12.0-15.5); MEAN CORPUSCULAR HEMOGLOBIN 26.9 pg (27.0-33.0); MEAN CORPUSCULAR HGB CONC 32.1 g/dl (32.0-36.5); MEAN CORPUSCULAR VOLUME 83.8 fl (80.0-96.0); PLATELET COUNT, AUTOMATED 302 10^3/uL (150-450); RED BLOOD COUNT 4.39 10^6/uL (4.00-5.40); RED CELL DISTRIBUTION WIDTH 16.3 % (11.5-14.5); WHITE BLOOD COUNT 26.4 10^3/uL (4.0-10.0)
[2017-09-09 06:49] LABS: ALBUMIN 2.7 GM/DL (3.2-5.2); ALBUMIN/GLOBULIN RATIO 0.82 (1.00-1.93); ALKALINE PHOSPHATASE 292 U/L (45-117); ALT/SGPT 352 U/L (12-78); ANION GAP 8 MEQ/L (8-16); AST/SGOT 625 U/L (7-37); BLOOD UREA NITROGEN 12 MG/DL (7-18); CARBON DIOXIDE LEVEL 31 MEQ/L (21-32); CHLORIDE LEVEL 104 MEQ/L (98-107); CREATININE FOR GFR 0.92 MG/DL (0.55-1.30); ESTIMATED AVERAGE GLUCOSE 111 MG/DL (60-110); GLOMERULAR FILTRATION RATE > 60.0 (>32); GLUCOSE, FASTING 178 MG/DL (70-100); HEMOGLOBIN A1c 5.5 %; POTASSIUM SERUM 3.6 MEQ/L (3.5-5.1); SODIUM LEVEL 143 MEQ/L (136-145)
[2017-09-09 07:00] LABS: BILIRUBIN,TOTAL 3.6 MG/DL (0.2-1.0)
[2017-09-09] MEDS: PIPERACILLIN/TAZOBACTAM SOD 3.375 GM in D5W MINI-BAG PLUS 50 ML IV (07:58)
[2017-09-09] MEDS: VITAMIN D 1,000 INTERNATIONAL UNITS TABLET PO (08:04)
[2017-09-09] MEDS: ATORVASTATIN 20 MG TAB PO (08:04)
[2017-09-09] MEDS: ASPIRIN 81 MG ENTERIC TAB PO (08:04)
[2017-09-09] MEDS: LOSARTAN 50 MG TAB PO (08:06)
[2017-09-09] MEDS: OMEPRAZOLE 20 MG CAP PO (08:07)
[2017-09-09] MEDS ORDERED: CIPROFLOXACIN 400 MG in APPROPRIATE DILUENT 1 EA IV (09:00)
[2017-09-09] MEDS: metroNIDAZOLE 500 MG in APPROPRIATE DILUENT 1 EA IV ×2 (10:08→17:10)
[2017-09-09] MEDS: cefTRIAXone SOD 2 GM in D5W MINI-BAG PLUS 50 ML IV (12:11)
[2017-09-09] MEDS ORDERED: MIDAZOLAM INJ 2 MG/2 ML VIAL (J2250) As Ordered (16:19)
[2017-09-09] MEDS ORDERED: ROCURONIUM BROMIDE 50 MG/5 ML VIAL As Ordered (16:19)
[2017-09-09] MEDS ORDERED: LIDOCAINE 2% INJ 100 MG/5 ML SDV (FOR ANES.) As Ordered (16:19)
[2017-09-09] MEDS ORDERED: dexameTHASONE 4 MG/ML 1ML VIAL (J1100) As Ordered (16:19)
[2017-09-09] MEDS ORDERED: PROPOFOL 200 MG/20 ML VIAL As Ordered (16:19)
[2017-09-09] MEDS ORDERED: ONDANSETRON 4MG/2ML VIAL (J2405) As Ordered (16:19)
[2017-09-09] MEDS ORDERED: fentaNYL 100 MCG/2 ML INJECTION (J3010) As Ordered (16:20)
[2017-09-09] MEDS ORDERED: ISOVUE-300 61% 50ML VIAL (Q9967) As Ordered (18:32)
[2017-09-10] MEDS: metroNIDAZOLE 500 MG in APPROPRIATE DILUENT 1 EA IV ×3 (02:34→17:35)
[2017-09-10] MEDS: LEVOTHYROXINE 88MCG TABLET (0.088 MG) PO (05:32)
[2017-09-10 06:21] LABS: BASO % 0.1 % (0.0-1.0); EOS % 0.2 % (0.0-3.0); HEMATOCRIT 35.2 % (36.0-47.0); HEMOGLOBIN 11.3 g/dl (12.0-15.5); IMMATURE GRANULOCYTE % 0.6 % (0-3.0); LYMPH # 0.5 10^3/uL (1.5-4.5); LYMPH % 3.2 % (24.0-44.0); MEAN CORPUSCULAR HEMOGLOBIN 26.7 pg (27.0-33.0); MEAN CORPUSCULAR HGB CONC 32.1 g/dl (32.0-36.5); MONO # 0.8 10^3/uL (0.0-0.8); MONO % 4.8 % (0.0-5.0); NEUTROPHILS # 14.7 10^3/uL (1.8-7.7); NEUTROPHILS % 91.1 % (36.0-66.0); PLATELET COUNT, AUTOMATED 276 10^3/uL (150-450); RED BLOOD COUNT 4.24 10^6/uL (4.00-5.40); RED CELL DISTRIBUTION WIDTH 16.7 % (11.5-14.5); WHITE BLOOD COUNT 16.1 10^3/uL (4.0-10.0)
[2017-09-10 06:47] LABS: ALBUMIN 2.6 GM/DL (3.2-5.2); ALBUMIN/GLOBULIN RATIO 0.87 (1.00-1.93); ALKALINE PHOSPHATASE 231 U/L (45-117); ALT/SGPT 229 U/L (12-78); ANION GAP 7 MEQ/L (8-16); AST/SGOT 194 U/L (7-37); BILIRUBIN,TOTAL 0.7 MG/DL (0.2-1.0); BLOOD UREA NITROGEN 16 MG/DL (7-18); CALCIUM LEVEL 8.1 MG/DL (8.8-10.2); CARBON DIOXIDE LEVEL 31 MEQ/L (21-32); CHLORIDE LEVEL 105 MEQ/L (98-107); CREATININE FOR GFR 0.87 MG/DL (0.55-1.30); FREE T4 1.97 NG/DL (0.76-1.46); GLOMERULAR FILTRATION RATE > 60.0 (>32); GLUCOSE, FASTING 103 MG/DL (70-100); POTASSIUM SERUM 3.6 MEQ/L (3.5-5.1); SODIUM LEVEL 143 MEQ/L (136-145); THYROID STIMULATING HORMONE 0.148 uIU/ML (0.358-3.740); TOTAL PROTEIN 5.6 GM/DL (6.4-8.2)
[2017-09-10] MEDS: ASPIRIN 81 MG ENTERIC TAB PO (09:00)
[2017-09-10] MEDS: ATORVASTATIN 20 MG TAB PO (09:35)
[2017-09-10] MEDS: METOPROLOL TART 12.5 MG PER 1/2 TAB PO ×2 (09:35→21:03)
[2017-09-10] MEDS: OMEPRAZOLE 20 MG CAP PO (09:36)
[2017-09-10] MEDS: VITAMIN D 1,000 INTERNATIONAL UNITS TABLET PO (09:36)
[2017-09-10] MEDS: LOSARTAN 50 MG TAB PO (09:36)
[2017-09-10] MEDS: FUROSEMIDE 40 MG/4 ML VIAL (J1940) IV (09:38)
[2017-09-10] MEDS: cefTRIAXone SOD 2 GM in D5W MINI-BAG PLUS 50 ML IV (11:44)
[2017-09-10] MEDS ORDERED: MIDAZOLAM INJ 2 MG/2 ML VIAL (J2250) As Ordered (16:35)
[2017-09-10] MEDS ORDERED: GLYCOPYRROLATE INJ 0.2 MG/ML 2 ML VIAL As Ordered (16:35)
[2017-09-10] MEDS ORDERED: KETOROLAC 60 MG/2 ML VIAL (J1885) As Ordered (16:35)
[2017-09-10] MEDS ORDERED: NEOSTIGMINE 10 MG/10 ML VIAL (J2710) As Ordered (16:35)
[2017-09-10] MEDS ORDERED: PROPOFOL 200 MG/20 ML VIAL As Ordered (16:35)
[2017-09-10] MEDS ORDERED: ROCURONIUM BROMIDE 50 MG/5 ML VIAL As Ordered (16:35)
[2017-09-10] MEDS ORDERED: ONDANSETRON 4MG/2ML VIAL (J2405) As Ordered (16:35)
[2017-09-10] MEDS ORDERED: dexameTHASONE 4 MG/ML 1ML VIAL (J1100) As Ordered (16:35)
[2017-09-10] MEDS ORDERED: fentaNYL 100 MCG/2 ML INJECTION (J3010) As Ordered (16:36)
[2017-09-10] MEDS ORDERED: LIDOCAINE 2% INJ 100 MG/5 ML SDV (FOR ANES.) As Ordered (16:38)
[2017-09-10] MEDS: metroNIDAZOLE/NACL 500MG(5MG/ML)100 ML BAG (S0030) As Ordered (17:34)
[2017-09-10] MEDS: ISOVUE-300 61% 50ML VIAL (Q9967) As Ordered (17:44)
[2017-09-10] MEDS ORDERED: METOCLOPRAMIDE INJ 10MG/2ML VIAL (J2765) IV (18:15)
[2017-09-10] MEDS ORDERED: PERCOCET 5MG/325MG TAB PO (18:15)
[2017-09-10] MEDS ORDERED: fentaNYL 100 MCG/2 ML INJECTION (J3010) IV (18:15)
[2017-09-10] MEDS ORDERED: ONDANSETRON 4MG/2ML VIAL (J2405) IV (18:15)
[2017-09-10] MEDS: LR 1,000 ML IV (18:58)
[2017-09-10] MEDS: APIXABAN 2.5 MG TAB (ELIQUIS) PO (21:03)
[2017-09-11] MEDS: metroNIDAZOLE 500 MG in APPROPRIATE DILUENT 1 EA IV ×3 (02:24→18:10)
[2017-09-11] MEDS: ACETAMINOPHEN TAB 650MG DOSE (2X325MG) PO (02:36)
[2017-09-11 06:09] LABS: HEMATOCRIT 33.7 % (36.0-47.0); HEMOGLOBIN 10.5 g/dl (12.0-15.5); LYMPH # 0.3 10^3/uL (1.5-4.5); MEAN CORPUSCULAR HEMOGLOBIN 26.3 pg (27.0-33.0); MEAN CORPUSCULAR HGB CONC 31.2 g/dl (32.0-36.5); MEAN CORPUSCULAR VOLUME 84.5 fl (80.0-96.0); MONO # 0.2 10^3/uL (0.0-0.8); MONO % 3.4 % (0.0-5.0); NEUTROPHILS # 6.5 10^3/uL (1.8-7.7); NEUTROPHILS % 91.6 % (36.0-66.0); PLATELET COUNT, AUTOMATED 275 10^3/uL (150-450); RED BLOOD COUNT 3.99 10^6/uL (4.00-5.40); RED CELL DISTRIBUTION WIDTH 16.5 % (11.5-14.5); WHITE BLOOD COUNT 7.1 10^3/uL (4.0-10.0)
[2017-09-11] MEDS: LEVOTHYROXINE 75MCG TABLET (0.075MG) PO (06:17)
[2017-09-11 06:27] LABS: POSITIVE DIFF POS FLAG
[2017-09-11 06:31] LABS: ALBUMIN 2.5 GM/DL (3.2-5.2); ALBUMIN/GLOBULIN RATIO 0.78 (1.00-1.93); ALKALINE PHOSPHATASE 188 U/L (45-117); ALT/SGPT 137 U/L (12-78); ANION GAP 7 MEQ/L (8-16); AST/SGOT 59 U/L (7-37); BILIRUBIN,TOTAL 0.5 MG/DL (0.2-1.0); BLOOD UREA NITROGEN 15 MG/DL (7-18); CALCIUM LEVEL 8.2 MG/DL (8.8-10.2); CARBON DIOXIDE LEVEL 31 MEQ/L (21-32); CHLORIDE LEVEL 103 MEQ/L (98-107); CREATININE FOR GFR 0.66 MG/DL (0.55-1.30); GLOMERULAR FILTRATION RATE > 60.0 (>32); GLUCOSE, FASTING 129 MG/DL (70-100); POTASSIUM SERUM 3.7 MEQ/L (3.5-5.1); SODIUM LEVEL 141 MEQ/L (136-145); TOTAL PROTEIN 5.7 GM/DL (6.4-8.2)
[2017-09-11] MEDS: FUROSEMIDE 40 MG/4 ML VIAL (J1940) IV (09:59)
[2017-09-11] MEDS: ASPIRIN 81 MG ENTERIC TAB PO (09:59)
[2017-09-11] MEDS: VITAMIN D 1,000 INTERNATIONAL UNITS TABLET PO (10:00)
[2017-09-11] MEDS: OMEPRAZOLE 20 MG CAP PO (10:00)
[2017-09-11] MEDS: ATORVASTATIN 20 MG TAB PO (10:00)
[2017-09-11] MEDS: METOPROLOL TART 12.5 MG PER 1/2 TAB PO ×2 (10:00→21:20)
[2017-09-11] MEDS: APIXABAN 2.5 MG TAB (ELIQUIS) PO ×2 (10:01→21:15)
[2017-09-11] MEDS: LOSARTAN 50 MG TAB PO (10:01)
[2017-09-11] MEDS: cefTRIAXone SOD 2 GM in D5W MINI-BAG PLUS 50 ML IV (12:24)
[2017-09-11] MEDS: CEFDINIR 300 MG CAP (OMNICEF) PO (21:15)
[2017-09-12] MEDS: metroNIDAZOLE 500 MG in APPROPRIATE DILUENT 1 EA IV ×2 (02:31→10:00)
[2017-09-12 05:57] LABS: BASO % 0.2 % (0.0-1.0); EOS # 0.1 10^3/uL (0.0-0.50); HEMATOCRIT 35.3 % (36.0-47.0); HEMOGLOBIN 11.1 g/dl (12.0-15.5); IMMATURE GRANULOCYTE % 0.3 % (0-3.0); LYMPH # 0.7 10^3/uL (1.5-4.5); MEAN CORPUSCULAR HEMOGLOBIN 26.7 pg (27.0-33.0); MEAN CORPUSCULAR HGB CONC 31.4 g/dl (32.0-36.5); MEAN CORPUSCULAR VOLUME 85.1 fl (80.0-96.0); MONO # 0.4 10^3/uL (0.0-0.8); MONO % 6.4 % (0.0-5.0); NEUTROPHILS # 5.1 10^3/uL (1.8-7.7); NEUTROPHILS % 81.1 % (36.0-66.0); PLATELET COUNT, AUTOMATED 262 10^3/uL (150-450); RED BLOOD COUNT 4.15 10^6/uL (4.00-5.40); RED CELL DISTRIBUTION WIDTH 16.4 % (11.5-14.5); WHITE BLOOD COUNT 6.3 10^3/uL (4.0-10.0)
[2017-09-12] MEDS: LEVOTHYROXINE 75MCG TABLET (0.075MG) PO (06:16)
[2017-09-12 06:18] LABS: ALBUMIN 2.5 GM/DL (3.2-5.2); ALBUMIN/GLOBULIN RATIO 0.76 (1.00-1.93); ALKALINE PHOSPHATASE 160 U/L (45-117); ALT/SGPT 92 U/L (12-78); ANION GAP 7 MEQ/L (8-16); AST/SGOT 24 U/L (7-37); BILIRUBIN,TOTAL 0.4 MG/DL (0.2-1.0); BLOOD UREA NITROGEN 14 MG/DL (7-18); CALCIUM LEVEL 8.4 MG/DL (8.8-10.2); CARBON DIOXIDE LEVEL 31 MEQ/L (21-32); CHLORIDE LEVEL 107 MEQ/L (98-107); CREATININE FOR GFR 0.72 MG/DL (0.55-1.30); GLOMERULAR FILTRATION RATE > 60.0 (>32); GLUCOSE, FASTING 100 MG/DL (70-100); POTASSIUM SERUM 3.5 MEQ/L (3.5-5.1); SODIUM LEVEL 145 MEQ/L (136-145); TOTAL PROTEIN 5.8 GM/DL (6.4-8.2)
[2017-09-12] MEDS: FUROSEMIDE 40 MG/4 ML VIAL (J1940) IV (09:00)
[2017-09-12] MEDS: METOPROLOL TART 12.5 MG PER 1/2 TAB PO (09:00)
[2017-09-12] MEDS: LOSARTAN 50 MG TAB PO (09:03)
[2017-09-12] MEDS: OMEPRAZOLE 20 MG CAP PO (09:03)
[2017-09-12] MEDS: CEFDINIR 300 MG CAP (OMNICEF) PO (09:04)
[2017-09-12] MEDS: APIXABAN 2.5 MG TAB (ELIQUIS) PO (09:04)
[2017-09-12] MEDS: ATORVASTATIN 20 MG TAB PO (09:04)
[2017-09-12] MEDS: VITAMIN D 1,000 INTERNATIONAL UNITS TABLET PO (09:07)
[2017-09-12] MEDS: ASPIRIN 81 MG ENTERIC TAB PO (09:08)
[2017-09-12] MEDS ORDERED: ALBUTEROL 90 MCG/ACT 8GM HFA INHALER INH (09:45)
[2017-09-12] MEDS ORDERED: FUROSEMIDE 40 MG TAB PO (13:30)
== END 2017-09-12 14:06 | disposition home or self-care (01) | DRG 445 ==
LOC: M MSPAV 09-09 00:39 → M ED 13:39 → M ED INP 23:47
PROC: 0FHB8DZ Insertion of Intraluminal Device into Hepatobiliary Duct, Via Natural or Artificial Opening Endoscopic (ICD-10-PCS; principal; 2017-09-10 11:00)
DX: K80.31 Calculus of bile duct with cholangitis, unspecified, with obstruction (principal); C78.7 Secondary malignant neoplasm of liver and intrahepatic bile duct; I50.22 Chronic systolic (congestive) heart failure; C78.01 Secondary malignant neoplasm of right lung; E03.9 Hypothyroidism, unspecified; I25.10 Atherosclerotic heart disease of native coronary artery without angina pectoris; I25.5 Ischemic cardiomyopathy; I11.0 Hypertensive heart disease with heart failure; I25.2 Old myocardial infarction; E78.5 Hyperlipidemia, unspecified; R74.0 Nonspecific elevation of levels of transaminase and lactic acid dehydrogenase [LDH]; E80.6 Other disorders of bilirubin metabolism; I48.0 Paroxysmal atrial fibrillation; E87.6 Hypokalemia; K44.9 Diaphragmatic hernia without obstruction or gangrene; K25.9 Gastric ulcer, unspecified as acute or chronic, without hemorrhage or perforation; Z95.5 Presence of coronary angioplasty implant and graft; Z90.49 Acquired absence of other specified parts of digestive tract; Z95.810 Presence of automatic (implantable) cardiac defibrillator; Z85.038 Personal history of other malignant neoplasm of large intestine; Z79.01 Long term (current) use of anticoagulants; Z79.82 Long term (current) use of aspirin; Z79.899 Other long term (current) drug therapy; Z88.8 Allergy status to other drugs, medicaments and biological substances

== ENCOUNTER → 2017-09-21 | Outpatient (REF) | payer MEDICARE ==
[2017-09-21 12:25] LABS: BASO # 0.1 10^3/uL (0.0-0.2); BASO % 0.5 % (0.0-1.0); EOS # 0.2 10^3/uL (0.0-0.50); EOS % 1.6 % (0.0-3.0); HEMATOCRIT 39.8 % (36.0-47.0); HEMOGLOBIN 12.7 g/dl (12.0-15.5); IMMATURE GRANULOCYTE % 0.4 % (0-3.0); LYMPH # 1.2 10^3/uL (1.5-4.5); LYMPH % 9.7 % (24.0-44.0); MEAN CORPUSCULAR HEMOGLOBIN 26.7 pg (27.0-33.0); MEAN CORPUSCULAR HGB CONC 31.9 g/dl (32.0-36.5); MEAN CORPUSCULAR VOLUME 83.6 fl (80.0-96.0); MONO # 0.7 10^3/uL (0.0-0.8); MONO % 5.9 % (0.0-5.0); NEUTROPHILS # 10.2 10^3/uL (1.8-7.7); NEUTROPHILS % 81.9 % (36.0-66.0); PLATELET COUNT, AUTOMATED 342 10^3/uL (150-450); RED BLOOD COUNT 4.76 10^6/uL (4.00-5.40); RED CELL DISTRIBUTION WIDTH 17.2 % (11.5-14.5); WHITE BLOOD COUNT 12.4 10^3/uL (4.0-10.0)
[2017-09-21 13:01] LABS: ALBUMIN 3.3 GM/DL (3.2-5.2); ALBUMIN/GLOBULIN RATIO 1.06 (1.00-1.93); ALKALINE PHOSPHATASE 88 U/L (45-117); ALT/SGPT 17 U/L (12-78); ANION GAP 13 MEQ/L (8-16); AST/SGOT 16 U/L (7-37); BILIRUBIN,TOTAL 0.7 MG/DL (0.2-1.0); BLOOD UREA NITROGEN 15 MG/DL (7-18); CALCIUM LEVEL 9.1 MG/DL (8.8-10.2); CARBON DIOXIDE LEVEL 27 MEQ/L (21-32); CHLORIDE LEVEL 100 MEQ/L (98-107); CREATININE FOR GFR 1.14 MG/DL (0.55-1.30); GLOMERULAR FILTRATION RATE 48.7 (>32); GLUCOSE, FASTING 157 MG/DL (70-100); POTASSIUM SERUM 3.6 MEQ/L (3.5-5.1); SODIUM LEVEL 140 MEQ/L (136-145); TOTAL PROTEIN 6.4 GM/DL (6.4-8.2)
== END ==
LOC: M SFHCADAM 10:00
DX: K80.31 Calculus of bile duct with cholangitis, unspecified, with obstruction (principal)
CPT/HCPCS: 80053

== ENCOUNTER 2017-09-22 11:25 | Inpatient (IN) | payer MEDICARE ==
[2017-09-22 11:53] LABS: VENOUS BASE EXCESS -1.7 (-2.0-2.0); VENOUS HCO3 20.6 MEQ/L (23.0-27.0); VENOUS O2 SATURATION 94.6 % (60.0-80.0); VENOUS PARTIAL PRESSURE CO2 28.3 mmHg (38.0-50.0); VENOUS PARTIAL PRESSURE O2 70.1 mmHg (30.0-50.0); VENOUS TOTAL CO2 21.5 MEQ/L (24.0-28.0)
[2017-09-22 11:57] LABS: BASO % 0.4 % (0.0-1.0); EOS # 0.2 10^3/uL (0.0-0.50); EOS % 1.5 % (0.0-3.0); HEMATOCRIT 37.6 % (36.0-47.0); HEMOGLOBIN 12.4 g/dl (12.0-15.5); IMMATURE GRANULOCYTE % 0.4 % (0-3.0); LYMPH # 1.5 10^3/uL (1.5-4.5); LYMPH % 13.7 % (24.0-44.0); MEAN CORPUSCULAR HEMOGLOBIN 26.8 pg (27.0-33.0); MEAN CORPUSCULAR VOLUME 81.2 fl (80.0-96.0); MONO # 0.6 10^3/uL (0.0-0.8); MONO % 5.7 % (0.0-5.0); NEUTROPHILS # 8.6 10^3/uL (1.8-7.7); NEUTROPHILS % 78.3 % (36.0-66.0); PLATELET COUNT, AUTOMATED 302 10^3/uL (150-450); RED BLOOD COUNT 4.63 10^6/uL (4.00-5.40)
[2017-09-22 12:08] LABS: INR 1.37
[2017-09-22 12:09] LABS: PARTIAL THROMBOPLASTIN TIME 28.6 SECONDS (25.4-37.6)
[2017-09-22 12:28] LABS: ALBUMIN 3.4 GM/DL (3.2-5.2); ALBUMIN/GLOBULIN RATIO 1.13 (1.00-1.93); ALKALINE PHOSPHATASE 91 U/L (45-117); ALT/SGPT 17 U/L (12-78); ANION GAP 15 MEQ/L (8-16); AST/SGOT 17 U/L (7-37); BILIRUBIN,DIRECT 0.2 MG/DL (0.0-0.2); BILIRUBIN,TOTAL 0.6 MG/DL (0.2-1.0); BLOOD UREA NITROGEN 12 MG/DL (7-18); CALCIUM LEVEL 8.8 MG/DL (8.8-10.2); CARBON DIOXIDE LEVEL 22 MEQ/L (21-32); CHLORIDE LEVEL 102 MEQ/L (98-107); CPK CREATINE PHOSPHOKINASE 99 U/L (26-192); CREATININE FOR GFR 1.12 MG/DL (0.55-1.30); GLOMERULAR FILTRATION RATE 49.7 (>32); GLUCOSE, FASTING 207 MG/DL (70-100); LIPASE 304 U/L (73-393); MAGNESIUM LEVEL 1.7 MG/DL (1.8-2.4); POTASSIUM SERUM 2.7 MEQ/L (3.5-5.1); SODIUM LEVEL 139 MEQ/L (136-145); TOTAL PROTEIN 6.4 GM/DL (6.4-8.2)
[2017-09-22 12:33] LABS: CK-MB VALUE MASS 9.4 NG/ML (<3.6); MB/CK RELATIVE INDEX 9.49 (< OR =4); NT-PRO BNP 274 PG/ML (<450)
[2017-09-22] MEDS: KCL 10MEQ/100ML SWI (KRUN) 10 MEQ in APPROPRIATE DILUENT 1 EA IV ×3 (13:14→23:08)
[2017-09-22 14:57] LABS: KETONE, URINE AUTO RFX NEGATIVE (NEGATIVE); LEUKOCYTE ESTERASE UR AUTO RFX NEGATIVE (NEGATIVE); MUCUS, URINE RFX SMALL (NEGATIVE); NITRITE, URINE AUTO RFX NEGATIVE (NEGATIVE); RBC, URINE AUTO RFX 1 /HPF (0-3); SPECIFIC GRAVITY UR AUTO RFX 1.003 (1.002-1.035); SQUAM EPITHELIAL CELL UR AURFX 0 /HPF (0-6); WBC, URINE AUTO RFX 1 /HPF (0-3)
[2017-09-22] MEDS ORDERED: LORazepam 0.5 MG TAB PO (18:15)
[2017-09-22] MEDS: POTASSIUM CHLORIDE 10 MEQ SR TABLET PO ×2 (18:15→22:15)
[2017-09-22] MEDS ORDERED: BISACODYL 10 MG SUPP PR (18:30)
[2017-09-22 21:11] LABS: CPK CREATINE PHOSPHOKINASE 627 U/L (26-192); MB/CK RELATIVE INDEX 2.55 (< OR =4)
[2017-09-22] MEDS: METOPROLOL TART 50 MG TAB PO (22:01)
[2017-09-22] MEDS: APIXABAN 2.5 MG TAB (ELIQUIS) PO (22:01)
[2017-09-22] MEDS: metroNIDAZOLE (FLAGYL) 500 MG TAB PO (22:01)
[2017-09-22] MEDS: busPIRone 10 MG TAB PO (22:02)
[2017-09-22] MEDS: NITROGLYCERIN 0.3 MG SUBL TAB SL (22:28)
[2017-09-22] MEDS ORDERED: NITROGLYCERIN 0.3 MG SUBL TAB SL (22:30)
[2017-09-22] MEDS: AMIODARONE HCL 150 MG in APPROPRIATE DILUENT 1 EA IV (22:47)
[2017-09-22] MEDS: ASPIRIN 81 MG CHEW TABLET PO (23:07)
[2017-09-23] MEDS: KCL 10MEQ/100ML SWI (KRUN) 10 MEQ in APPROPRIATE DILUENT 1 EA IV ×3 (00:33→02:43)
[2017-09-23 00:44] LABS: ANION GAP 8 MEQ/L (8-16); BLOOD UREA NITROGEN 12 MG/DL (7-18); CALCIUM LEVEL 8.4 MG/DL (8.8-10.2); CARBON DIOXIDE LEVEL 28 MEQ/L (21-32); CHLORIDE LEVEL 104 MEQ/L (98-107); CK-MB VALUE MASS 14.1 NG/ML (<3.6); CPK CREATINE PHOSPHOKINASE 993 U/L (26-192); CREATININE FOR GFR 1.03 MG/DL (0.55-1.30); GLOMERULAR FILTRATION RATE 54.7 (>32); GLUCOSE, FASTING 119 MG/DL (70-100); MB/CK RELATIVE INDEX 1.41 (< OR =4); POTASSIUM SERUM 3.4 MEQ/L (3.5-5.1); SODIUM LEVEL 140 MEQ/L (136-145)
[2017-09-23 01:00] LABS: TROPONIN I 5.39 NG/ML (< 0.10)
[2017-09-23] MEDS: MAG SULF 1GM/100ML (MAG RUN) 1 GM in APPROPRIATE DILUENT 1 EA IV (03:58)
[2017-09-23] MEDS: METOPROLOL TART 50 MG TAB PO ×3 (05:53→22:00)
[2017-09-23] MEDS: LEVOTHYROXINE 75MCG TABLET (0.075MG) PO (06:15)
[2017-09-23 06:31] LABS: HEMOGLOBIN 10.5 g/dl (12.0-15.5); MEAN CORPUSCULAR HGB CONC 31.8 g/dl (32.0-36.5); MEAN CORPUSCULAR VOLUME 84.8 fl (80.0-96.0); PLATELET COUNT, AUTOMATED 231 10^3/uL (150-450); RED BLOOD COUNT 3.89 10^6/uL (4.00-5.40); RED CELL DISTRIBUTION WIDTH 17.3 % (11.5-14.5); WHITE BLOOD COUNT 7.4 10^3/uL (4.0-10.0)
[2017-09-23 06:53] LABS: ALBUMIN 2.6 GM/DL (3.2-5.2); ALBUMIN/GLOBULIN RATIO 0.84 (1.00-1.93); ALKALINE PHOSPHATASE 69 U/L (45-117); ALT/SGPT 18 U/L (12-78); ANION GAP 9 MEQ/L (8-16); AST/SGOT 46 U/L (7-37); BILIRUBIN,TOTAL 0.4 MG/DL (0.2-1.0); BLOOD UREA NITROGEN 10 MG/DL (7-18); CALCIUM LEVEL 8.2 MG/DL (8.8-10.2); CARBON DIOXIDE LEVEL 25 MEQ/L (21-32); CHLORIDE LEVEL 107 MEQ/L (98-107); CREATININE FOR GFR 0.84 MG/DL (0.55-1.30); GLOMERULAR FILTRATION RATE > 60.0 (>32); GLUCOSE, FASTING 127 MG/DL (70-100); POTASSIUM SERUM 3.5 MEQ/L (3.5-5.1); SODIUM LEVEL 141 MEQ/L (136-145); TOTAL PROTEIN 5.7 GM/DL (6.4-8.2)
[2017-09-23 07:13] LABS: CK-MB VALUE MASS 10.5 NG/ML (<3.6); CPK CREATINE PHOSPHOKINASE 1241 U/L (26-192); MB/CK RELATIVE INDEX 0.84 (< OR =4)
[2017-09-23 07:14] LABS: ESTIMATED AVERAGE GLUCOSE 114 MG/DL (60-110); HEMOGLOBIN A1c 5.6 %
[2017-09-23 07:34] LABS: TROPONIN I 3.45 NG/ML (< 0.10)
[2017-09-23 07:38] LABS: MAGNESIUM LEVEL 2.3 MG/DL (1.8-2.4)
[2017-09-23] MEDS ORDERED: FUROSEMIDE 40 MG TAB PO (09:00)
[2017-09-23] MEDS ORDERED: LOSARTAN 50 MG TAB PO (09:00)
[2017-09-23] MEDS: busPIRone 10 MG TAB PO ×2 (09:18→20:25)
[2017-09-23] MEDS: VITAMIN D 1,000 INTERNATIONAL UNITS TABLET PO (09:18)
[2017-09-23] MEDS: ASPIRIN 81 MG ENTERIC TAB PO (09:18)
[2017-09-23] MEDS: ATORVASTATIN 20 MG TAB PO (09:19)
[2017-09-23] MEDS: OMEPRAZOLE 20 MG CAP PO (09:19)
[2017-09-23] MEDS: AMIODARONE 200 MG TAB (PACERONE) PO ×2 (09:19→20:25)
[2017-09-23] MEDS ORDERED: SLF 3 ML SYR IV (09:30)
[2017-09-23] MEDS: ENOXAPARIN 60 MG/0.6 ML SYR (J1650) SC ×2 (11:15→20:25)
[2017-09-23] MEDS: CLOTRIMAZOLE 1% VAG CR 45 GM TOP ×2 (11:16→20:24)
[2017-09-23] MEDS: SLF 3 ML SYR IV ×2 (13:32→21:00)
[2017-09-24] MEDS: LEVOTHYROXINE 75MCG TABLET (0.075MG) PO (05:11)
[2017-09-24] MEDS: SLF 3 ML SYR IV ×3 (05:12→20:42)
[2017-09-24] MEDS: METOPROLOL TART 50 MG TAB PO ×3 (05:12→20:42)
[2017-09-24 05:41] LABS: HEMATOCRIT 34.8 % (36.0-47.0); HEMOGLOBIN 10.6 g/dl (12.0-15.5); MEAN CORPUSCULAR HEMOGLOBIN 26.5 pg (27.0-33.0); MEAN CORPUSCULAR HGB CONC 30.5 g/dl (32.0-36.5); PLATELET COUNT, AUTOMATED 215 10^3/uL (150-450); RED CELL DISTRIBUTION WIDTH 17.4 % (11.5-14.5); WHITE BLOOD COUNT 5.5 10^3/uL (4.0-10.0)
[2017-09-24 06:02] LABS: ALBUMIN 2.7 GM/DL (3.2-5.2); ALBUMIN/GLOBULIN RATIO 0.87 (1.00-1.93); ALKALINE PHOSPHATASE 64 U/L (45-117); ALT/SGPT 19 U/L (12-78); ANION GAP 7 MEQ/L (8-16); AST/SGOT 37 U/L (7-37); BILIRUBIN,TOTAL 0.3 MG/DL (0.2-1.0); BLOOD UREA NITROGEN 9 MG/DL (7-18); CALCIUM LEVEL 8.5 MG/DL (8.8-10.2); CARBON DIOXIDE LEVEL 26 MEQ/L (21-32); CHLORIDE LEVEL 108 MEQ/L (98-107); CREATININE FOR GFR 0.86 MG/DL (0.55-1.30); GLOMERULAR FILTRATION RATE > 60.0 (>32); GLUCOSE, FASTING 112 MG/DL (70-100); MAGNESIUM LEVEL 2.2 MG/DL (1.8-2.4); POTASSIUM SERUM 3.9 MEQ/L (3.5-5.1); SODIUM LEVEL 141 MEQ/L (136-145); TOTAL PROTEIN 5.8 GM/DL (6.4-8.2)
[2017-09-24] MEDS: OMEPRAZOLE 20 MG CAP PO (08:32)
[2017-09-24] MEDS: VITAMIN D 1,000 INTERNATIONAL UNITS TABLET PO (08:32)
[2017-09-24] MEDS: ATORVASTATIN 20 MG TAB PO (08:32)
[2017-09-24] MEDS: ENOXAPARIN 60 MG/0.6 ML SYR (J1650) SC ×2 (08:32→20:33)
[2017-09-24] MEDS: AMIODARONE 200 MG TAB (PACERONE) PO ×2 (08:32→20:34)
[2017-09-24] MEDS: ASPIRIN 81 MG ENTERIC TAB PO (08:33)
[2017-09-24] MEDS: CLOTRIMAZOLE 1% VAG CR 45 GM TOP ×2 (08:33→20:34)
[2017-09-24] MEDS: busPIRone 10 MG TAB PO ×2 (08:33→20:33)
[2017-09-24] MEDS: ACETAMINOPHEN TAB 650MG DOSE (2X325MG) PO (12:29)
[2017-09-24] MEDS: ONDANSETRON 4MG/2ML VIAL (J2405) IV ×2 (12:29→16:33)
[2017-09-24] MEDS: LOSARTAN 50 MG TAB PO (14:21)
[2017-09-24] MEDS: NORCO, ANEXSIA 5/325MG TABLET (HYDROcodone/ACETAMINOPHEN) PO ×2 (15:07→22:42)
[2017-09-24 17:39] LABS: AMORPHOUS SEDIMENT SMALL (NEGATIVE); APPEARANCE, URINE HAZY (CLEAR); BACTERIA, URINE AUTO NEGATIVE (NEGATIVE); BILIRUBIN, URINE AUTO NEGATIVE (NEGATIVE); BLOOD, URINE BLOOD 1+ (NEGATIVE); COLOR, URINE YELLOW (YELLOW); GLUCOSE, URINE (UA) AUTO NEGATIVE (NEGATIVE); KETONE, URINE AUTO NEGATIVE (NEGATIVE); LEUKOCYTE ESTERASE, URINE AUTO TRACE (NEGATIVE); MUCUS, URINE SMALL (NEGATIVE); NITRITE, URINE AUTO NEGATIVE (NEGATIVE); PROTEIN, URINE AUTO NEGATIVE (NEGATIVE); RBC, URINE AUTO 22 /HPF (0-3); SPECIFIC GRAVITY URINE AUTO 1.016 (1.002-1.035); SQUAMOUS EPITHELIAL CELL UR AU 2 /HPF (0-6); UROBILINOGEN, URINE AUTO 0.2 mg/dL (0.0-2.0); WBC, URINE AUTO 3 /HPF (0-3)
[2017-09-24] MEDS: MORPHINE 4 MG/ML 1ML VIAL/SYRINGE (J2270) IV (18:29)
[2017-09-24] MEDS: KCL 10MEQ IN D5/0.45NS 1000ML 1,000 ML IV (20:33)
[2017-09-25] MEDS: SLF 3 ML SYR IV ×3 (06:00→22:00)
[2017-09-25 06:02] LABS: HEMATOCRIT 37.2 % (36.0-47.0); HEMOGLOBIN 11.7 g/dl (12.0-15.5); MEAN CORPUSCULAR HEMOGLOBIN 26.8 pg (27.0-33.0); MEAN CORPUSCULAR HGB CONC 31.5 g/dl (32.0-36.5); MEAN CORPUSCULAR VOLUME 85.1 fl (80.0-96.0); PLATELET COUNT, AUTOMATED 309 10^3/uL (150-450); RED BLOOD COUNT 4.37 10^6/uL (4.00-5.40); RED CELL DISTRIBUTION WIDTH 17.6 % (11.5-14.5); WHITE BLOOD COUNT 10.9 10^3/uL (4.0-10.0)
[2017-09-25] MEDS: NORCO, ANEXSIA 5/325MG TABLET (HYDROcodone/ACETAMINOPHEN) PO ×2 (06:08→17:48)
[2017-09-25] MEDS: LEVOTHYROXINE 75MCG TABLET (0.075MG) PO (06:08)
[2017-09-25] MEDS: METOPROLOL TART 50 MG TAB PO ×3 (06:09→22:00)
[2017-09-25] MEDS: ONDANSETRON 4MG/2ML VIAL (J2405) IV (06:12)
[2017-09-25 06:17] LABS: ANION GAP 7 MEQ/L (8-16); BLOOD UREA NITROGEN 8 MG/DL (7-18); CALCIUM LEVEL 8.4 MG/DL (8.8-10.2); CARBON DIOXIDE LEVEL 27 MEQ/L (21-32); CHLORIDE LEVEL 105 MEQ/L (98-107); CREATININE FOR GFR 0.88 MG/DL (0.55-1.30); GLOMERULAR FILTRATION RATE > 60.0 (>32); GLUCOSE, FASTING 139 MG/DL (70-100); MAGNESIUM LEVEL 1.9 MG/DL (1.8-2.4); SODIUM LEVEL 139 MEQ/L (136-145)
[2017-09-25] MEDS ORDERED: PILL CRUSHER/CUTTER 1 EACH XX (07:45)
[2017-09-25] MEDS: KCL 10MEQ IN D5/0.45NS 1000ML 1,000 ML IV ×2 (08:18→20:02)
[2017-09-25] MEDS: ATORVASTATIN 20 MG TAB PO (10:23)
[2017-09-25] MEDS: VITAMIN D 1,000 INTERNATIONAL UNITS TABLET PO (10:23)
[2017-09-25] MEDS: ASPIRIN 81 MG CHEW TABLET NG (10:23)
[2017-09-25] MEDS: AMIODARONE 200 MG TAB (PACERONE) PO ×2 (10:23→20:02)
[2017-09-25] MEDS: busPIRone 10 MG TAB PO ×2 (10:23→20:02)
[2017-09-25] MEDS: PANTOPRAZOLE 40MG INJ (PROTONIX) (C9113) IV (10:24)
[2017-09-25] MEDS: ENOXAPARIN 60 MG/0.6 ML SYR (J1650) SC ×2 (10:24→20:03)
[2017-09-25] MEDS: CLOTRIMAZOLE 1% VAG CR 45 GM TOP ×2 (10:27→20:03)
[2017-09-25] MEDS: LOSARTAN 50 MG TAB PO (10:27)
[2017-09-26] MEDS: SLF 3 ML SYR IV ×3 (06:00→22:00)
[2017-09-26 06:34] LABS: HEMATOCRIT 34.8 % (36.0-47.0); HEMOGLOBIN 10.9 g/dl (12.0-15.5); MEAN CORPUSCULAR HEMOGLOBIN 26.7 pg (27.0-33.0); MEAN CORPUSCULAR HGB CONC 31.3 g/dl (32.0-36.5); MEAN CORPUSCULAR VOLUME 85.3 fl (80.0-96.0); PLATELET COUNT, AUTOMATED 223 10^3/uL (150-450); RED BLOOD COUNT 4.08 10^6/uL (4.00-5.40); RED CELL DISTRIBUTION WIDTH 17.5 % (11.5-14.5); WHITE BLOOD COUNT 7.4 10^3/uL (4.0-10.0)
[2017-09-26] MEDS: METOPROLOL TART 50 MG TAB PO ×3 (06:45→22:00)
[2017-09-26] MEDS: LEVOTHYROXINE 75MCG TABLET (0.075MG) PO (06:45)
[2017-09-26 06:53] LABS: ANION GAP 7 MEQ/L (8-16); BLOOD UREA NITROGEN 6 MG/DL (7-18); CALCIUM LEVEL 8.3 MG/DL (8.8-10.2); CARBON DIOXIDE LEVEL 25 MEQ/L (21-32); CHLORIDE LEVEL 107 MEQ/L (98-107); GLOMERULAR FILTRATION RATE > 60.0 (>32); GLUCOSE, FASTING 121 MG/DL (70-100); MAGNESIUM LEVEL 1.9 MG/DL (1.8-2.4); SODIUM LEVEL 139 MEQ/L (136-145)
[2017-09-26] MEDS: KCL 10MEQ IN D5/0.45NS 1000ML 1,000 ML IV ×3 (07:08→20:28)
[2017-09-26] MEDS: ENOXAPARIN 60 MG/0.6 ML SYR (J1650) SC ×2 (10:32→20:28)
[2017-09-26] MEDS: PANTOPRAZOLE 40MG INJ (PROTONIX) (C9113) IV (10:32)
[2017-09-26] MEDS: busPIRone 10 MG TAB PO ×2 (10:33→20:27)
[2017-09-26] MEDS: NORCO, ANEXSIA 5/325MG TABLET (HYDROcodone/ACETAMINOPHEN) PO ×2 (10:33→20:26)
[2017-09-26] MEDS: ASPIRIN 81 MG CHEW TABLET NG (10:33)
[2017-09-26] MEDS: AMIODARONE 200 MG TAB (PACERONE) PO ×2 (10:33→20:27)
[2017-09-26] MEDS: ATORVASTATIN 20 MG TAB PO (10:33)
[2017-09-26] MEDS: LOSARTAN 50 MG TAB PO (10:34)
[2017-09-26] MEDS: VITAMIN D 1,000 INTERNATIONAL UNITS TABLET PO (10:34)
[2017-09-26] MEDS: CLOTRIMAZOLE 1% VAG CR 45 GM TOP ×2 (10:34→20:27)
[2017-09-27] MEDS: MORPHINE 4 MG/ML 1ML VIAL/SYRINGE (J2270) IV ×2 (04:48→15:19)
[2017-09-27] MEDS: SLF 3 ML SYR IV ×3 (06:00→20:31)
[2017-09-27 06:19] LABS: HEMATOCRIT 35.8 % (36.0-47.0); HEMOGLOBIN 11.2 g/dl (12.0-15.5); MEAN CORPUSCULAR HEMOGLOBIN 26.7 pg (27.0-33.0); MEAN CORPUSCULAR HGB CONC 31.3 g/dl (32.0-36.5); MEAN CORPUSCULAR VOLUME 85.4 fl (80.0-96.0); PLATELET COUNT, AUTOMATED 242 10^3/uL (150-450); RED BLOOD COUNT 4.19 10^6/uL (4.00-5.40); RED CELL DISTRIBUTION WIDTH 17.5 % (11.5-14.5); WHITE BLOOD COUNT 5.7 10^3/uL (4.0-10.0)
[2017-09-27] MEDS: LEVOTHYROXINE 75MCG TABLET (0.075MG) PO (06:19)
[2017-09-27] MEDS: METOPROLOL TART 50 MG TAB PO ×3 (06:19→20:36)
[2017-09-27 06:29] LABS: ANION GAP 5 MEQ/L (8-16); BLOOD UREA NITROGEN 6 MG/DL (7-18); CALCIUM LEVEL 8.7 MG/DL (8.8-10.2); CARBON DIOXIDE LEVEL 29 MEQ/L (21-32); CHLORIDE LEVEL 106 MEQ/L (98-107); CREATININE FOR GFR 0.79 MG/DL (0.55-1.30); GLOMERULAR FILTRATION RATE > 60.0 (>32); GLUCOSE, FASTING 124 MG/DL (70-100); MAGNESIUM LEVEL 1.7 MG/DL (1.8-2.4); SODIUM LEVEL 140 MEQ/L (136-145)
[2017-09-27] MEDS: MAG SULF 1GM/100ML (MAG RUN) 1 GM in APPROPRIATE DILUENT 1 EA IV (10:04)
[2017-09-27] MEDS: ENOXAPARIN 60 MG/0.6 ML SYR (J1650) SC ×2 (10:04→20:30)
[2017-09-27] MEDS: VITAMIN D 1,000 INTERNATIONAL UNITS TABLET PO (10:05)
[2017-09-27] MEDS: ATORVASTATIN 20 MG TAB PO (10:05)
[2017-09-27] MEDS: ASPIRIN 81 MG CHEW TABLET NG (10:05)
[2017-09-27] MEDS: PANTOPRAZOLE 40MG INJ (PROTONIX) (C9113) IV (10:05)
[2017-09-27] MEDS: AMIODARONE 200 MG TAB (PACERONE) PO ×2 (10:06→20:31)
[2017-09-27] MEDS: LOSARTAN 50 MG TAB PO (10:06)
[2017-09-27] MEDS: busPIRone 10 MG TAB PO ×2 (10:06→20:31)
[2017-09-27] MEDS: CLOTRIMAZOLE 1% VAG CR 45 GM TOP ×2 (10:07→20:31)
[2017-09-27] MEDS: NORCO, ANEXSIA 5/325MG TABLET (HYDROcodone/ACETAMINOPHEN) PO ×2 (10:29→23:13)
[2017-09-27] MEDS: ONDANSETRON 4MG/2ML VIAL (J2405) IV (18:02)
[2017-09-27] MEDS: KCL 10MEQ IN D5/0.45NS 1000ML 1,000 ML IV (20:52)
[2017-09-28] MEDS: LEVOTHYROXINE 75MCG TABLET (0.075MG) PO (05:52)
[2017-09-28] MEDS: SLF 3 ML SYR IV ×3 (05:53→20:43)
[2017-09-28] MEDS: METOPROLOL TART 50 MG TAB PO ×3 (05:53→20:43)
[2017-09-28 06:39] LABS: HEMATOCRIT 35.2 % (36.0-47.0); HEMOGLOBIN 11.1 g/dl (12.0-15.5); MEAN CORPUSCULAR HGB CONC 31.5 g/dl (32.0-36.5); MEAN CORPUSCULAR VOLUME 85.6 fl (80.0-96.0); PLATELET COUNT, AUTOMATED 232 10^3/uL (150-450); RED BLOOD COUNT 4.11 10^6/uL (4.00-5.40); RED CELL DISTRIBUTION WIDTH 18.1 % (11.5-14.5); WHITE BLOOD COUNT 6.8 10^3/uL (4.0-10.0)
[2017-09-28 06:42] LABS: ANION GAP 8 MEQ/L (8-16); BLOOD UREA NITROGEN 6 MG/DL (7-18); CALCIUM LEVEL 8.2 MG/DL (8.8-10.2); CARBON DIOXIDE LEVEL 25 MEQ/L (21-32); CHLORIDE LEVEL 108 MEQ/L (98-107); CREATININE FOR GFR 0.74 MG/DL (0.55-1.30); GLOMERULAR FILTRATION RATE > 60.0 (>32); GLUCOSE, FASTING 117 MG/DL (70-100); MAGNESIUM LEVEL 1.9 MG/DL (1.8-2.4); SODIUM LEVEL 141 MEQ/L (136-145)
[2017-09-28] MEDS: PANTOPRAZOLE 40MG INJ (PROTONIX) (C9113) IV (10:09)
[2017-09-28] MEDS: ENOXAPARIN 60 MG/0.6 ML SYR (J1650) SC ×2 (10:09→20:44)
[2017-09-28] MEDS: VITAMIN D 1,000 INTERNATIONAL UNITS TABLET PO (10:09)
[2017-09-28] MEDS: ASPIRIN 81 MG CHEW TABLET NG (10:09)
[2017-09-28] MEDS: busPIRone 10 MG TAB PO ×2 (10:09→20:44)
[2017-09-28] MEDS: LOSARTAN 50 MG TAB PO (10:10)
[2017-09-28] MEDS: ATORVASTATIN 20 MG TAB PO (10:10)
[2017-09-28] MEDS: AMIODARONE 200 MG TAB (PACERONE) PO ×2 (10:11→20:42)
[2017-09-28] MEDS: CLOTRIMAZOLE 1% VAG CR 45 GM TOP ×2 (10:11→20:43)
[2017-09-28] MEDS: KCL 10MEQ IN D5/0.45NS 1000ML 1,000 ML IV (10:30)
[2017-09-28] MEDS ORDERED: LIDOCAINE 1% MDV 20ML VIAL As Ordered (15:48)
[2017-09-28] MEDS: SODIUM CHLORIDE 0.9% INJ 10 ML SYR IV (18:11)
[2017-09-29] MEDS: KCL 10MEQ IN D5/0.45NS 1000ML 1,000 ML IV ×3 (00:29→21:52)
[2017-09-29] MEDS: SLF 3 ML SYR IV ×3 (05:23→21:49)
[2017-09-29] MEDS: LEVOTHYROXINE 75MCG TABLET (0.075MG) PO (05:33)
[2017-09-29] MEDS: SODIUM CHLORIDE 0.9% INJ 10 ML SYR IV ×2 (05:34→18:00)
[2017-09-29] MEDS: METOPROLOL TART 50 MG TAB PO ×3 (05:34→22:00)
[2017-09-29 06:12] LABS: HEMATOCRIT 30.6 % (36.0-47.0); HEMOGLOBIN 9.9 g/dl (12.0-15.5); MEAN CORPUSCULAR HEMOGLOBIN 27.4 pg (27.0-33.0); MEAN CORPUSCULAR HGB CONC 32.4 g/dl (32.0-36.5); MEAN CORPUSCULAR VOLUME 84.8 fl (80.0-96.0); PLATELET COUNT, AUTOMATED 238 10^3/uL (150-450); RED BLOOD COUNT 3.61 10^6/uL (4.00-5.40); RED CELL DISTRIBUTION WIDTH 17.8 % (11.5-14.5); WHITE BLOOD COUNT 5.5 10^3/uL (4.0-10.0)
[2017-09-29 06:21] LABS: ANION GAP 8 MEQ/L (8-16); BLOOD UREA NITROGEN 4 MG/DL (7-18); CALCIUM LEVEL 7.9 MG/DL (8.8-10.2); CARBON DIOXIDE LEVEL 26 MEQ/L (21-32); CHLORIDE LEVEL 110 MEQ/L (98-107); CREATININE FOR GFR 0.68 MG/DL (0.55-1.30); GLOMERULAR FILTRATION RATE > 60.0 (>32); GLUCOSE, FASTING 105 MG/DL (70-100); POTASSIUM SERUM 4.1 MEQ/L (3.5-5.1); SODIUM LEVEL 144 MEQ/L (136-145)
[2017-09-29] MEDS: PANTOPRAZOLE 40MG INJ (PROTONIX) (C9113) IV (09:09)
[2017-09-29] MEDS: ENOXAPARIN 60 MG/0.6 ML SYR (J1650) SC ×2 (09:10→21:49)
[2017-09-29] MEDS: LOSARTAN 50 MG TAB PO (09:10)
[2017-09-29] MEDS: VITAMIN D 1,000 INTERNATIONAL UNITS TABLET PO (09:11)
[2017-09-29] MEDS: CLOTRIMAZOLE 1% VAG CR 45 GM TOP ×2 (09:11→21:49)
[2017-09-29] MEDS: ASPIRIN 81 MG CHEW TABLET NG (09:11)
[2017-09-29] MEDS: AMIODARONE 200 MG TAB (PACERONE) PO ×2 (09:11→21:48)
[2017-09-29] MEDS: ATORVASTATIN 20 MG TAB PO (09:11)
[2017-09-29] MEDS: busPIRone 10 MG TAB PO ×2 (09:11→21:48)
[2017-09-30] MEDS: LEVOTHYROXINE 75MCG TABLET (0.075MG) PO (05:26)
[2017-09-30] MEDS: SODIUM CHLORIDE 0.9% INJ 10 ML SYR IV ×2 (05:26→17:55)
[2017-09-30] MEDS: METOPROLOL TART 50 MG TAB PO (05:48)
[2017-09-30 05:49] LABS: HEMATOCRIT 29.3 % (36.0-47.0); HEMOGLOBIN 9.3 g/dl (12.0-15.5); MEAN CORPUSCULAR HEMOGLOBIN 27.4 pg (27.0-33.0); MEAN CORPUSCULAR HGB CONC 31.7 g/dl (32.0-36.5); MEAN CORPUSCULAR VOLUME 86.4 fl (80.0-96.0); PLATELET COUNT, AUTOMATED 210 10^3/uL (150-450); RED BLOOD COUNT 3.39 10^6/uL (4.00-5.40); WHITE BLOOD COUNT 5.6 10^3/uL (4.0-10.0)
[2017-09-30] MEDS: SLF 3 ML SYR IV ×2 (05:50→10:58)
[2017-09-30 06:19] LABS: ANION GAP 7 MEQ/L (8-16); BLOOD UREA NITROGEN 5 MG/DL (7-18); CARBON DIOXIDE LEVEL 26 MEQ/L (21-32); CHLORIDE LEVEL 111 MEQ/L (98-107); CREATININE FOR GFR 0.61 MG/DL (0.55-1.30); GLOMERULAR FILTRATION RATE > 60.0 (>32); GLUCOSE, FASTING 98 MG/DL (70-100); MAGNESIUM LEVEL 1.8 MG/DL (1.8-2.4); POTASSIUM SERUM 3.3 MEQ/L (3.5-5.1); SODIUM LEVEL 144 MEQ/L (136-145)
[2017-09-30] MEDS: ENOXAPARIN 60 MG/0.6 ML SYR (J1650) SC ×2 (08:13→20:37)
[2017-09-30] MEDS: ATORVASTATIN 20 MG TAB PO (08:13)
[2017-09-30] MEDS: ASPIRIN 81 MG CHEW TABLET NG (08:13)
[2017-09-30] MEDS: PANTOPRAZOLE 40MG INJ (PROTONIX) (C9113) IV (08:13)
[2017-09-30] MEDS: busPIRone 10 MG TAB PO ×2 (08:13→20:37)
[2017-09-30] MEDS: VITAMIN D 1,000 INTERNATIONAL UNITS TABLET PO (08:17)
[2017-09-30] MEDS: KCL 10MEQ/100ML SWI (KRUN) 10 MEQ in APPROPRIATE DILUENT 1 EA IV ×2 (08:18→09:29)
[2017-09-30] MEDS: AMIODARONE 200 MG TAB (PACERONE) PO ×2 (09:28→20:37)
[2017-09-30] MEDS: LOSARTAN 25 MG TAB PO (09:28)
[2017-09-30] MEDS: METOPROLOL TART 25 MG TABLET PO (20:37)
[2017-10-01] MEDS: LEVOTHYROXINE 75MCG TABLET (0.075MG) PO (05:34)
[2017-10-01] MEDS: SODIUM CHLORIDE 0.9% INJ 10 ML SYR IV ×2 (05:35→11:19)
[2017-10-01 05:45] LABS: BASO % 0.6 % (0.0-1.0); EOS # 0.1 10^3/uL (0.0-0.50); EOS % 2.6 % (0.0-3.0); HEMATOCRIT 26.6 % (36.0-47.0); HEMOGLOBIN 8.5 g/dl (12.0-15.5); IMMATURE GRANULOCYTE % 0.6 % (0-3.0); LYMPH # 0.5 10^3/uL (1.5-4.5); LYMPH % 15.9 % (24.0-44.0); MEAN CORPUSCULAR HEMOGLOBIN 27.7 pg (27.0-33.0); MEAN CORPUSCULAR VOLUME 86.6 fl (80.0-96.0); MONO # 0.2 10^3/uL (0.0-0.8); MONO % 7.4 % (0.0-5.0); NEUTROPHILS # 2.3 10^3/uL (1.8-7.7); NEUTROPHILS % 72.9 % (36.0-66.0); PLATELET COUNT, AUTOMATED 186 10^3/uL (150-450); RED BLOOD COUNT 3.07 10^6/uL (4.00-5.40); RED CELL DISTRIBUTION WIDTH 18.2 % (11.5-14.5); WHITE BLOOD COUNT 3.1 10^3/uL (4.0-10.0)
[2017-10-01 06:08] LABS: ANION GAP 9 MEQ/L (8-16); BLOOD UREA NITROGEN 4 MG/DL (7-18); CARBON DIOXIDE LEVEL 22 MEQ/L (21-32); CHLORIDE LEVEL 118 MEQ/L (98-107); CREATININE FOR GFR 0.53 MG/DL (0.55-1.30); GLOMERULAR FILTRATION RATE > 60.0 (>32); GLUCOSE, FASTING 76 MG/DL (70-100); MAGNESIUM LEVEL 1.6 MG/DL (1.8-2.4); POTASSIUM SERUM 3.2 MEQ/L (3.5-5.1); SODIUM LEVEL 149 MEQ/L (136-145)
[2017-10-01] MEDS: VITAMIN D 1,000 INTERNATIONAL UNITS TABLET PO (09:35)
[2017-10-01] MEDS: AMIODARONE 200 MG TAB (PACERONE) PO ×2 (09:35→20:42)
[2017-10-01] MEDS: PANTOPRAZOLE 40MG INJ (PROTONIX) (C9113) IV (09:35)
[2017-10-01] MEDS: busPIRone 10 MG TAB PO ×2 (09:35→20:42)
[2017-10-01] MEDS: ASPIRIN 81 MG CHEW TABLET NG (09:35)
[2017-10-01] MEDS: ATORVASTATIN 20 MG TAB PO (09:35)
[2017-10-01] MEDS: LOSARTAN 25 MG TAB PO (09:36)
[2017-10-01] MEDS: ENOXAPARIN 60 MG/0.6 ML SYR (J1650) SC ×2 (09:37→20:43)
[2017-10-01] MEDS: METOPROLOL TART 25 MG TABLET PO ×2 (09:37→20:42)
[2017-10-01] MEDS: POTASSIUM CHLORIDE 10 MEQ SR TABLET PO (10:23)
[2017-10-01] MEDS: MAG SULF 1GM/100ML (MAG RUN) 1 GM in APPROPRIATE DILUENT 1 EA IV (11:21)
[2017-10-02] MEDS: LEVOTHYROXINE 75MCG TABLET (0.075MG) PO (05:33)
[2017-10-02] MEDS: SODIUM CHLORIDE 0.9% INJ 10 ML SYR IV ×3 (05:34→17:11)
[2017-10-02] MEDS: PANTOPRAZOLE 40MG INJ (PROTONIX) (C9113) IV (09:32)
[2017-10-02] MEDS: ASPIRIN 81 MG CHEW TABLET NG (09:32)
[2017-10-02] MEDS: ENOXAPARIN 60 MG/0.6 ML SYR (J1650) SC ×2 (09:32→21:04)
[2017-10-02] MEDS: ATORVASTATIN 20 MG TAB PO (09:33)
[2017-10-02] MEDS: VITAMIN D 1,000 INTERNATIONAL UNITS TABLET PO (09:33)
[2017-10-02] MEDS: LOSARTAN 25 MG TAB PO (09:34)
[2017-10-02] MEDS: METOPROLOL TART 25 MG TABLET PO ×2 (09:34→21:07)
[2017-10-02] MEDS: busPIRone 10 MG TAB PO ×2 (09:35→21:04)
[2017-10-02] MEDS: AMIODARONE 200 MG TAB (PACERONE) PO ×2 (09:35→21:04)
[2017-10-02 16:23] LABS: HEMATOCRIT 31.6 % (36.0-47.0); MEAN CORPUSCULAR HEMOGLOBIN 27.6 pg (27.0-33.0); MEAN CORPUSCULAR HGB CONC 31.6 g/dl (32.0-36.5); MEAN CORPUSCULAR VOLUME 87.3 fl (80.0-96.0); PLATELET COUNT, AUTOMATED 233 10^3/uL (150-450); RED BLOOD COUNT 3.62 10^6/uL (4.00-5.40); RED CELL DISTRIBUTION WIDTH 18.1 % (11.5-14.5); WHITE BLOOD COUNT 5.2 10^3/uL (4.0-10.0)
[2017-10-02 16:52] LABS: ANION GAP 6 MEQ/L (8-16); BLOOD UREA NITROGEN 7 MG/DL (7-18); CALCIUM LEVEL 8.5 MG/DL (8.8-10.2); CARBON DIOXIDE LEVEL 27 MEQ/L (21-32); CHLORIDE LEVEL 114 MEQ/L (98-107); CREATININE FOR GFR 0.82 MG/DL (0.55-1.30); GLOMERULAR FILTRATION RATE > 60.0 (>32); GLUCOSE, FASTING 99 MG/DL (70-100); SODIUM LEVEL 147 MEQ/L (136-145)
[2017-10-02] MEDS: ONDANSETRON 4MG/2ML VIAL (J2405) IV (17:11)
[2017-10-03] MEDS: SODIUM CHLORIDE 0.9% INJ 10 ML SYR IV ×3 (05:09→17:29)
[2017-10-03] MEDS: LEVOTHYROXINE 75MCG TABLET (0.075MG) PO (05:09)
[2017-10-03 05:32] LABS: HEMATOCRIT 29.8 % (36.0-47.0); HEMOGLOBIN 9.3 g/dl (12.0-15.5); MEAN CORPUSCULAR HEMOGLOBIN 27.6 pg (27.0-33.0); MEAN CORPUSCULAR HGB CONC 31.2 g/dl (32.0-36.5); MEAN CORPUSCULAR VOLUME 88.4 fl (80.0-96.0); PLATELET COUNT, AUTOMATED 230 10^3/uL (150-450); RED BLOOD COUNT 3.37 10^6/uL (4.00-5.40); RED CELL DISTRIBUTION WIDTH 18.4 % (11.5-14.5); WHITE BLOOD COUNT 4.8 10^3/uL (4.0-10.0)
[2017-10-03 05:46] LABS: ANION GAP 9 MEQ/L (8-16); BLOOD UREA NITROGEN 8 MG/DL (7-18); CALCIUM LEVEL 8.1 MG/DL (8.8-10.2); CARBON DIOXIDE LEVEL 25 MEQ/L (21-32); CHLORIDE LEVEL 114 MEQ/L (98-107); CREATININE FOR GFR 0.66 MG/DL (0.55-1.30); GLOMERULAR FILTRATION RATE > 60.0 (>32); GLUCOSE, FASTING 78 MG/DL (70-100); SODIUM LEVEL 148 MEQ/L (136-145)
[2017-10-03] MEDS: ASPIRIN 81 MG CHEW TABLET NG (09:14)
[2017-10-03] MEDS: AMIODARONE 200 MG TAB (PACERONE) PO ×2 (09:14→21:11)
[2017-10-03] MEDS: LOSARTAN 25 MG TAB PO (09:14)
[2017-10-03] MEDS: VITAMIN D 1,000 INTERNATIONAL UNITS TABLET PO (09:14)
[2017-10-03] MEDS: busPIRone 10 MG TAB PO ×2 (09:14→21:12)
[2017-10-03] MEDS: METOPROLOL TART 25 MG TABLET PO ×2 (09:16→21:12)
[2017-10-03] MEDS: ATORVASTATIN 20 MG TAB PO (09:16)
[2017-10-03] MEDS: PANTOPRAZOLE 40MG INJ (PROTONIX) (C9113) IV (09:16)
[2017-10-03] MEDS: ENOXAPARIN 60 MG/0.6 ML SYR (J1650) SC ×2 (09:17→21:08)
[2017-10-03] MEDS: KCL 20MEQ IN 0.45NS 1000ML 1,000 ML IV (15:14)
[2017-10-04] MEDS: LEVOTHYROXINE 75MCG TABLET (0.075MG) PO (05:25)
[2017-10-04 05:31] LABS: HEMATOCRIT 30.1 % (36.0-47.0); HEMOGLOBIN 9.4 g/dl (12.0-15.5); MEAN CORPUSCULAR HEMOGLOBIN 27.5 pg (27.0-33.0); MEAN CORPUSCULAR HGB CONC 31.2 g/dl (32.0-36.5); PLATELET COUNT, AUTOMATED 214 10^3/uL (150-450); RED BLOOD COUNT 3.42 10^6/uL (4.00-5.40); RED CELL DISTRIBUTION WIDTH 18.3 % (11.5-14.5); WHITE BLOOD COUNT 4.5 10^3/uL (4.0-10.0)
[2017-10-04] MEDS: SODIUM CHLORIDE 0.9% INJ 10 ML SYR IV ×3 (05:46→18:00)
[2017-10-04 06:03] LABS: ALBUMIN 2.3 GM/DL (3.2-5.2); ANION GAP 9 MEQ/L (8-16); BLOOD UREA NITROGEN 8 MG/DL (7-18); CARBON DIOXIDE LEVEL 25 MEQ/L (21-32); CHLORIDE LEVEL 112 MEQ/L (98-107); CREATININE FOR GFR 0.74 MG/DL (0.55-1.30); GLOMERULAR FILTRATION RATE > 60.0 (>32); GLUCOSE, FASTING 98 MG/DL (70-100); MAGNESIUM LEVEL 1.7 MG/DL (1.8-2.4); PHOSPHORUS LEVEL 3.2 MG/DL (2.5-4.9); POTASSIUM SERUM 4.1 MEQ/L (3.5-5.1); SODIUM LEVEL 146 MEQ/L (136-145)
[2017-10-04] MEDS: ENOXAPARIN 60 MG/0.6 ML SYR (J1650) SC ×2 (09:10→21:35)
[2017-10-04] MEDS: PANTOPRAZOLE 40MG INJ (PROTONIX) (C9113) IV (09:10)
[2017-10-04] MEDS: busPIRone 10 MG TAB PO ×2 (09:11→21:34)
[2017-10-04] MEDS: ATORVASTATIN 20 MG TAB PO (09:11)
[2017-10-04] MEDS: ASPIRIN 81 MG CHEW TABLET NG (09:11)
[2017-10-04] MEDS: VITAMIN D 1,000 INTERNATIONAL UNITS TABLET PO (09:11)
[2017-10-04] MEDS: AMIODARONE 200 MG TAB (PACERONE) PO ×2 (09:11→21:35)
[2017-10-04] MEDS: METOPROLOL TART 25 MG TABLET PO ×2 (09:14→21:35)
[2017-10-04] MEDS: LOSARTAN 25 MG TAB PO (09:14)
[2017-10-05] MEDS: LEVOTHYROXINE 75MCG TABLET (0.075MG) PO (05:35)
[2017-10-05 05:58] LABS: BASO % 0.5 % (0.0-1.0); EOS # 0.2 10^3/uL (0.0-0.50); EOS % 3.9 % (0.0-3.0); HEMATOCRIT 30.9 % (36.0-47.0); HEMOGLOBIN 9.9 g/dl (12.0-15.5); IMMATURE GRANULOCYTE % 0.7 % (0-3.0); LYMPH # 0.6 10^3/uL (1.5-4.5); LYMPH % 13.1 % (24.0-44.0); MEAN CORPUSCULAR HEMOGLOBIN 27.4 pg (27.0-33.0); MEAN CORPUSCULAR VOLUME 85.6 fl (80.0-96.0); MONO # 0.4 10^3/uL (0.0-0.8); MONO % 8.5 % (0.0-5.0); NEUTROPHILS # 3.2 10^3/uL (1.8-7.7); NEUTROPHILS % 73.3 % (36.0-66.0); PLATELET COUNT, AUTOMATED 237 10^3/uL (150-450); RED BLOOD COUNT 3.61 10^6/uL (4.00-5.40); RED CELL DISTRIBUTION WIDTH 18.3 % (11.5-14.5); WHITE BLOOD COUNT 4.4 10^3/uL (4.0-10.0)
[2017-10-05 06:16] LABS: ALBUMIN 2.2 GM/DL (3.2-5.2); ANION GAP 8 MEQ/L (8-16); BLOOD UREA NITROGEN 7 MG/DL (7-18); CALCIUM LEVEL 8.2 MG/DL (8.8-10.2); CARBON DIOXIDE LEVEL 26 MEQ/L (21-32); CHLORIDE LEVEL 113 MEQ/L (98-107); CREATININE FOR GFR 0.74 MG/DL (0.55-1.30); GLOMERULAR FILTRATION RATE > 60.0 (>32); GLUCOSE, FASTING 91 MG/DL (70-100); PHOSPHORUS LEVEL 3.3 MG/DL (2.5-4.9); POTASSIUM SERUM 3.7 MEQ/L (3.5-5.1); SODIUM LEVEL 147 MEQ/L (136-145)
[2017-10-05] MEDS: VITAMIN D 1,000 INTERNATIONAL UNITS TABLET PO (08:29)
[2017-10-05] MEDS: ASPIRIN 81 MG CHEW TABLET NG (08:29)
[2017-10-05] MEDS: METOPROLOL TART 25 MG TABLET PO (08:29)
[2017-10-05] MEDS: ATORVASTATIN 20 MG TAB PO (08:29)
[2017-10-05] MEDS: AMIODARONE 200 MG TAB (PACERONE) PO (08:29)
[2017-10-05] MEDS: PANTOPRAZOLE 40MG TAB (PROTONIX) PO (08:29)
[2017-10-05] MEDS: ENOXAPARIN 60 MG/0.6 ML SYR (J1650) SC (08:29)
[2017-10-05] MEDS: busPIRone 10 MG TAB PO (08:29)
[2017-10-05] MEDS: LOSARTAN 25 MG TAB PO (08:30)
== END 2017-10-05 12:31 | disposition home or self-care (01) | DRG 309 ==
LOC: M MSPAV 09-24 19:39 → M ED 11:25 → M ED INP 18:28 → M PCU 21:14
PROC: 02HV33Z Insertion of Infusion Device into Superior Vena Cava, Percutaneous Approach (ICD-10-PCS; principal; 2017-09-28)
DX: I48.0 Paroxysmal atrial fibrillation (principal); I50.22 Chronic systolic (congestive) heart failure; C78.7 Secondary malignant neoplasm of liver and intrahepatic bile duct; K56.52 Intestinal adhesions [bands] with complete obstruction; K62.5 Hemorrhage of anus and rectum; D62 Acute posthemorrhagic anemia; E87.0 Hyperosmolality and hypernatremia; E03.9 Hypothyroidism, unspecified; I25.10 Atherosclerotic heart disease of native coronary artery without angina pectoris; I10 Essential (primary) hypertension; I25.5 Ischemic cardiomyopathy; I47.2 Ventricular tachycardia; E87.6 Hypokalemia; E78.5 Hyperlipidemia, unspecified; E83.42 Hypomagnesemia; E86.0 Dehydration; Z79.01 Long term (current) use of anticoagulants; Z95.5 Presence of coronary angioplasty implant and graft; Z95.810 Presence of automatic (implantable) cardiac defibrillator; K25.9 Gastric ulcer, unspecified as acute or chronic, without hemorrhage or perforation; Z90.49 Acquired absence of other specified parts of digestive tract; Z85.038 Personal history of other malignant neoplasm of large intestine; Z79.82 Long term (current) use of aspirin; Z79.899 Other long term (current) drug therapy; Z88.8 Allergy status to other drugs, medicaments and biological substances

== ENCOUNTER → 2017-10-08 | Outpatient (REF) | payer MEDICARE ==
[2017-10-08 12:55] LABS: HEMATOCRIT 37.5 % (36.0-47.0); HEMOGLOBIN 11.7 g/dl (12.0-15.5); MEAN CORPUSCULAR HEMOGLOBIN 27.2 pg (27.0-33.0); MEAN CORPUSCULAR HGB CONC 31.2 g/dl (32.0-36.5); MEAN CORPUSCULAR VOLUME 87.2 fl (80.0-96.0); PLATELET COUNT, AUTOMATED 322 10^3/uL (150-450); RED CELL DISTRIBUTION WIDTH 18.8 % (11.5-14.5); WHITE BLOOD COUNT 7.7 10^3/uL (4.0-10.0)
[2017-10-08 13:11] LABS: ALBUMIN 2.7 GM/DL (3.2-5.2); ALBUMIN/GLOBULIN RATIO 0.84 (1.00-1.93); ALKALINE PHOSPHATASE 66 U/L (45-117); ALT/SGPT 15 U/L (12-78); ANION GAP 9 MEQ/L (8-16); AST/SGOT 10 U/L (7-37); BILIRUBIN,TOTAL 0.4 MG/DL (0.2-1.0); BLOOD UREA NITROGEN 9 MG/DL (7-18); CALCIUM LEVEL 8.9 MG/DL (8.8-10.2); CARBON DIOXIDE LEVEL 29 MEQ/L (21-32); CHLORIDE LEVEL 109 MEQ/L (98-107); CREATININE FOR GFR 0.87 MG/DL (0.55-1.30); GLOMERULAR FILTRATION RATE > 60.0 (>32); GLUCOSE, FASTING 106 MG/DL (70-100); SODIUM LEVEL 147 MEQ/L (136-145); TOTAL PROTEIN 5.9 GM/DL (6.4-8.2)
[2017-10-08 15:11] LABS: CARCINOEMBRYONIC ANTIGEN 11.9 NG/ML (<2.5)
== END ==
LOC: M LAB REF 12:17
DX: C78.7 Secondary malignant neoplasm of liver and intrahepatic bile duct (principal); Z85.038 Personal history of other malignant neoplasm of large intestine
CPT/HCPCS: 82378

== ENCOUNTER 2018-03-01 21:43 | Emergency (ER) | payer MEDICARE ==
[~2018-03-01] VITALS: Ht 157.5 cm; Wt 70.9 kg
[~2018-03-01 21:43] MED LIST changes: +/ESOM40CA PO; +AMIO200T PO; +ASPI1TAB PO; +ASPI1TAB15 PO; +ASPI81TA85 PO; +ATOR40TA75 PO; +BISO5TAB5 PO; +BISO5TAB54 PO; +BUSP10TA PO; +CAPE1TAB PO; +CAPE1TAB2 PO; +CEFD300CAP PO; +COMP1MIS24 XX; +CRAMPS OTC PO; +DRIS1CAP PO; +ELIQ2.5T PO; +ELIQ5TAB PO; +FURO20TA2 PO; +FURO40TA2 PO; +ISOS30TA4 PO; +ISOS30TAB PO; +ISOS60TA2 PO; +LEVO75TA4 PO; +LEVOTYROXINE PO; +LOPR1TAB6 PO; +LORA0.5T11 PO; +LOSA100T5 PO; +LOSA100T50 PO; +LOSA50TA88 PO; +MECLIZINE PO; +METO1TAB87 PO; +METR-201 PO; -MIDAZOLAM INJ 2 MG/2 ML VIAL (J2250) As Ordered; +NAPR-50 PO; +NEXI40CA PO; +NITR0.2D5 TD; +NITR4TASL SL; +OMEP40CA2 PO; +SPIR-10 PO; +SUCR1TAB56 PO; +SULF1TAB93 PO; +SYNT88TA2 PO; +TYLETAB14 PO; +VENTAER INH; +VITA200016 PO; +ZOFR4TAB14 PO; -fentaNYL 100 MCG/2 ML INJECTION (J3010) As Ordered
[2018-03-01 22:22] LABS: BASO % 0.3 % (0.0-1.0); EOS # 0.1 10^3/uL (0.0-0.50); EOS % 1.5 % (0.0-3.0); HEMATOCRIT 34.7 % (36.0-47.0); HEMOGLOBIN 10.8 g/dl (12.0-15.5); LYMPH # 0.6 10^3/uL (1.5-4.5); LYMPH % 10.6 % (24.0-44.0); MEAN CORPUSCULAR HEMOGLOBIN 25.8 pg (27.0-33.0); MEAN CORPUSCULAR HGB CONC 31.1 g/dl (32.0-36.5); MEAN CORPUSCULAR VOLUME 82.8 fl (80.0-96.0); MONO # 0.7 10^3/uL (0.0-0.8); MONO % 11.1 % (0.0-5.0); NEUTROPHILS # 4.5 10^3/uL (1.8-7.7); NEUTROPHILS % 76.2 % (36.0-66.0); PLATELET COUNT, AUTOMATED 225 10^3/uL (150-450); RED BLOOD COUNT 4.19 10^6/uL (4.00-5.40); WHITE BLOOD COUNT 5.9 10^3/uL (4.0-10.0)
[2018-03-01 22:48] LABS: BLOOD UREA NITROGEN 22 MG/DL (7-18); CALCIUM LEVEL 8.5 MG/DL (8.8-10.2); CARBON DIOXIDE LEVEL 29 MEQ/L (21-32); CHLORIDE LEVEL 105 MEQ/L (98-107); CPK CREATINE PHOSPHOKINASE 36 U/L (26-192); CREATININE FOR GFR 1.03 MG/DL (0.55-1.30); GLOMERULAR FILTRATION RATE 54.6 (>32); GLUCOSE, FASTING 112 MG/DL (70-100); MB/CK RELATIVE INDEX 2.78 (< OR =4); POTASSIUM SERUM 4.3 MEQ/L (3.5-5.1); SODIUM LEVEL 141 MEQ/L (136-145); TROPONIN I < 0.02 NG/ML (< 0.10)
[2018-03-01] MEDS ORDERED: NITROGLYCERIN 0.4 MG SUBL TABLET SL PRN (23:00)
[2018-03-01] MEDS ORDERED: ASPIRIN 81 MG CHEW TABLET PO ONE (23:00)
[2018-03-01] MEDS ORDERED: ISOVUE-370 76% 100ML VIAL (Q9967) As Ordered ONE (23:26)
--- NOTE | 2018-03-01 23:54 | REPVR ---
EXAM: CT Angiography Chest With Contrast EXAM DATE/TIME: 03/01/2018 10:59 PM CLINICAL HISTORY: 83 years old, female; Pain; Chest pain; Type not specified; Patient HX: HX lung cancer w meta to liver TECHNIQUE: Axial computed tomographic angiography images of the chest with intravenous contrast using CT angiography protocol. All CT scans at this facility use at least one of these dose optimization techniques: automated exposure control; mA and/or kV adjustment per patient size (includes targeted exams where dose is matched to clinical indication); or iterative reconstruction. Coronal and sagittal reformatted images were created and reviewed. MIP reconstructed images were created and reviewed. CONTRAST: 75 ml of iso administered intravenously. COMPARISON: CT ANGIO CHEST 07/22/2017 6:13 PM FINDINGS: Pulmonary arteries: No pulmonary emboli. Aorta: Normal. No aortic aneurysm. No aortic dissection. Lungs: Increase in size of pulmonary parenchymal nodules consistent with metastatic disease. Examples include a 1.1 x 1.4 cm nodule in the anterior aspect of the right upper lobe, a 1.4 x 1.2 cm nodule in the azygos esophageal recess, and several other nodules measuring less than 6 mm demonstrated bilaterally. Bibasilar atelectasis/fibrotic scarring. Pleural space: Normal. No pneumothorax. No pleural effusion. Heart: Cardiomegaly. Small pericardial effusion. Mediastinum: Small hiatal hernia. Liver: Fossa calcified lesion in the posterior medial right lobe of the liver measures 2.1 x 3.2 cm suspicious for metastatic focus. Several other smaller lesions in the right lobe measuring approximately 10 mm each also suspicious for metastatic lesions. Gallbladder and bile ducts: Extensive pneumobilia status post biliary stent catheter placement. Adrenals: Bilateral nodular adrenal hyperplasia. Kidneys and ureters: Right renal cyst measures 1.8 cm. Lymph nodes: Unremarkable. No enlarged lymph nodes. Bones/joints: The spine demonstrates moderate degenerative changes. Osteoporosis. Soft tissues: Unremarkable. IMPRESSION: 1. Increase in size of pulmonary parenchymal nodules consistent with metastatic disease. Examples include a 1.1 x 1.4 cm nodule in the anterior aspect of the right upper lobe, a 1.4 x 1.2 cm nodule in the azygos esophageal recess, and several other nodules measuring less than 6 mm demonstrated bilaterally. 2. No pulmonary emboli. 3. Fossa calcified lesion in the posterior medial right lobe of the liver measures 2.1 x 3.2 cm suspicious for metastatic focus. Several other smaller lesions in the right lobe measuring approximately 10 mm each also suspicious for metastatic lesions. Electronically signed by: Macho Beck On 03/01/2018 23:54:21 PM
[2018-03-02 01:54] LABS: MB/CK RELATIVE INDEX 3.51 (< OR =4); TROPONIN I 0.02 NG/ML (< 0.10)
[2018-03-02 02:16] VITALS: BP 145/60
--- NOTE | 2018-03-02 09:05 | REP ---
Chest x-ray: Two views. History: Chest pain. Comparison study: September 22, 2017. Findings: The lungs are symmetrically aerated and free of infiltrate. There is some mild linear fibrosis just below the pacemaker power plant in the left inferior perihilar region. A unipolar pacemaker is seen in the enlarged heart. Cardiomegaly is felt to be unchanged. The pleural angles are sharp. There is no evidence of infiltrate or pulmonary edema. Impression: Cardiomegaly with pacemaker. Otherwise no acute disease. Electronically Signed by Jose J Avelar MD 03/02/2018 08:57 A
--- NOTE | 2018-03-02 13:33 | ED PDOC ---
Post-Departure Follow-Up dr monreal faxed formal report of cta for fu Mihaela Lopez MD Mar 02, 2018 13:33
--- NOTE | 2018-03-02 17:45 | ECGEPIP ---
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
--- NOTE | 2018-03-02 17:47 | ECGEPIP ---
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
== END 2018-03-02 02:34 | disposition home or self-care (01) ==
LOC: M ED 21:43
DX: R91.8 Other nonspecific abnormal finding of lung field (principal); R07.89 Other chest pain; R00.1 Bradycardia, unspecified; I51.9 Heart disease, unspecified; I25.2 Old myocardial infarction; Z95.5 Presence of coronary angioplasty implant and graft; Z88.8 Allergy status to other drugs, medicaments and biological substances; Z79.899 Other long term (current) drug therapy; Z79.82 Long term (current) use of aspirin; Z79.01 Long term (current) use of anticoagulants
CPT/HCPCS: 71046; 71275; 80048; 82550; 82553; 84484; 85025; 93005; 93041; 94760; 99285; Q9967

== ENCOUNTER → 2018-04-05 | Outpatient (CLI) | payer MEDICARE ==
[~2018-04-05] MED LIST changes: +HYDR12.55 PO; +METO1TAB32 PO
--- NOTE | 2018-04-05 17:38 | REP ---
PET/CT: History: Restaging colon carcinoma, most recently with evidence of oligometastatic disease involving the right lobe of the liver and the right upper lobe lung lesion. Chest CT study from March 01, 2018 also describes a right lower lobe azygos recess nodule. Comparisons: Comparison PET-CT study is from May 05, 2017. TECHNIQUE: 62 minutes following the intravenous injection of a 7.8 mCi dose of F-18 FDG, three-dimensional PET scintigraphy is acquired from the skull base to the proximal thighs. Triplanar noncontrast CT scanning is acquired through the same anatomic range for attenuation correction, and image registration with scan parameters optimized to minimize radiation exposure to the patient. PET scintigraphy and CT datasets were fused and displayed on a workstation with multiplanar and projection display capability. PET/CT Findings: There is some normal variant skeletal muscle uptake and arthritis associated uptake at the right shoulder. There is hypermetabolic uptake in the previously noted right upper lobe pulmonary nodule with maximum standard uptake value 8.9. A second small right upper lobe nodule has discernible FDG accumulation not in the hypermetabolic range, maximum standard uptake value 1.36. There is a right lower lobe nodule medially in the azygos recess with maximum standard uptake value of 6.86. This is hypermetabolic as well. There are two lesions in the right lobe of the liver which are hypermetabolic. More superiorly there is a right lobe lesion adjacent to the vena cava with maximum standard uptake value today at 5.79. Inferiorly in the posterior segment right lobe there is a somewhat smaller lesion with maximum standard uptake value 7.63. The right lower lobe pulmonary nodule and the right inferior hepatic hypermetabolic focus appear to be new from the May 05, 2017 prior PET-CT. Impression: There is scintigraphic evidence of progression since the prior PET-CT as above. Electronically Signed by Jose J Avelar MD 04/05/2018 07:32 P
== END ==
LOC: M PLARAD 08:18
PROVIDERS: ATTEND Internal Medicine Medical Oncology
DX: C18.9 Malignant neoplasm of colon, unspecified (principal); C78.7 Secondary malignant neoplasm of liver and intrahepatic bile duct; C78.01 Secondary malignant neoplasm of right lung
CPT/HCPCS: 78815; A9552

== ENCOUNTER → 2018-05-20 | Outpatient (REF) | payer MEDICARE ==
[~2018-05-20] MED LIST changes: -/ESOM40CA PO; +ASPI81TA26 PO; -METR-201 PO; +METR-265 PO; -NAPR-50 PO; +NAPR-837 PO; +NEXI1CAP3 PO
[2018-05-20 14:02] LABS: HEMATOCRIT 36.7 % (36.0-47.0); HEMOGLOBIN 11.6 g/dl (12.0-15.5); MEAN CORPUSCULAR HGB CONC 31.6 g/dl (32.0-36.5); MEAN CORPUSCULAR VOLUME 85.5 fl (80.0-96.0); PLATELET COUNT, AUTOMATED 239 10^3/uL (150-450); RED BLOOD COUNT 4.29 10^6/uL (4.00-5.40); WHITE BLOOD COUNT 5.8 10^3/uL (4.0-10.0)
[2018-05-20 14:41] LABS: ALBUMIN 3.4 GM/DL (3.2-5.2); ALT/SGPT 24 U/L (12-78); BILIRUBIN,TOTAL 0.5 MG/DL (0.2-1.0); BLOOD UREA NITROGEN 17 MG/DL (7-18); CALCIUM LEVEL 8.9 MG/DL (8.8-10.2); CARBON DIOXIDE LEVEL 28 MEQ/L (21-32); CHLORIDE LEVEL 106 MEQ/L (98-107); CHOLESTEROL LEVEL 119 MG/DL (<200); CHOLESTEROL RISK RATIO 2.288 (<5); CREATININE FOR GFR 0.86 MG/DL (0.55-1.30); FREE T4 1.49 NG/DL (0.76-1.46); GLOMERULAR FILTRATION RATE > 60.0 (>32); GLUCOSE, FASTING 89 MG/DL (70-100); HDL CHOLESTEROL 52 MG/DL (>40); LDL CHOLESTEROL 44 MG/DL (<100); NON-HDL-C 67 MG/DL; POTASSIUM SERUM 4.4 MEQ/L (3.5-5.1); SODIUM LEVEL 142 MEQ/L (136-145); TOTAL PROTEIN 6.6 GM/DL (6.4-8.2); TRIGLYCERIDES LEVEL 116 MG/DL (<150)
== END ==
LOC: M LABDRAW1 13:23
PROVIDERS: ATTEND Family Medicine
DX: C78.7 Secondary malignant neoplasm of liver and intrahepatic bile duct (principal); E03.9 Hypothyroidism, unspecified; I25.10 Atherosclerotic heart disease of native coronary artery without angina pectoris

== ENCOUNTER 2018-07-15 11:19 | Inpatient (IN) | payer MEDICARE ==
[~2018-07-15] VITALS: Ht 157.5 cm; Wt 72.4 kg
[2018-07-15] MEDS ORDERED: METO1TAB87 (11:27)
[2018-07-15 12:15] LABS: BASO % 0.5 % (0.0-1.0); EOS # 0.1 10^3/uL (0.0-0.50); EOS % 1.6 % (0.0-3.0); HEMATOCRIT 34.8 % (36.0-47.0); HEMOGLOBIN 11.1 g/dl (12.0-15.5); LYMPH # 0.4 10^3/uL (1.5-4.5); LYMPH % 4.7 % (24.0-44.0); MEAN CORPUSCULAR HEMOGLOBIN 27.6 pg (27.0-33.0); MEAN CORPUSCULAR HGB CONC 31.9 g/dl (32.0-36.5); MEAN CORPUSCULAR VOLUME 86.6 fl (80.0-96.0); MONO # 0.7 10^3/uL (0.0-0.8); MONO % 9.3 % (0.0-5.0); NEUTROPHILS # 6.6 10^3/uL (1.8-7.7); NEUTROPHILS % 83.5 % (36.0-66.0); PLATELET COUNT, AUTOMATED 321 10^3/uL (150-450); RED BLOOD COUNT 4.02 10^6/uL (4.00-5.40)
--- NOTE | 2018-07-15 12:15 | REP ---
Chest one-view HISTORY: Cough Comparison: 03/01/2018 The lungs are clear. The cardiac silhouette is enlarged. The pulmonary vasculature is normal in appearance. A cardiac pacemaker is present. Impression: Cardiomegaly. Electronically Signed by Brian Razo MD 07/15/2018 12:07 P
[2018-07-15 12:18] LABS: VENOUS BASE EXCESS 5.4 (-2.0-2.0); VENOUS HCO3 31.6 MEQ/L (23.0-27.0); VENOUS O2 SATURATION 71.1 % (60.0-80.0); VENOUS PARTIAL PRESSURE CO2 53.6 mmHg (38.0-50.0); VENOUS PARTIAL PRESSURE O2 40.8 mmHg (30.0-50.0); VENOUS PH 7.388 UNITS (7.330-7.430); VENOUS STANDARD HCO3 28.8 MEQ/L; VENOUS TOTAL CO2 33.2 MEQ/L (24.0-28.0)
[2018-07-15 12:24] LABS: INR 1.36
[2018-07-15] MEDS ORDERED: GI COCKTAIL 50ML BTL(HYOSCYAMINE/MAALOX/LIDOCAINE VISCOUS)(1:3:1) PO ONE (12:30)
[2018-07-15 12:58] LABS: ALBUMIN 2.9 GM/DL (3.2-5.2); ALT/SGPT 18 U/L (12-78); BILIRUBIN,DIRECT 0.2 MG/DL (0.0-0.2); BILIRUBIN,TOTAL 0.7 MG/DL (0.2-1.0); BLOOD UREA NITROGEN 13 MG/DL (7-18); CALCIUM LEVEL 9.3 MG/DL (8.8-10.2); CARBON DIOXIDE LEVEL 30 MEQ/L (21-32); CHLORIDE LEVEL 101 MEQ/L (98-107); CK-MB VALUE MASS < 1.0 NG/ML (<3.6); CPK CREATINE PHOSPHOKINASE 36 U/L (26-192); CREATININE FOR GFR 0.91 MG/DL (0.55-1.30); GLOMERULAR FILTRATION RATE > 60.0 (>32); GLUCOSE, FASTING 146 MG/DL (70-100); MB/CK RELATIVE INDEX 2.78 (< OR =4); NT-PRO BNP 983 PG/ML (<450); POTASSIUM SERUM 3.7 MEQ/L (3.5-5.1); SODIUM LEVEL 139 MEQ/L (136-145); THYROID STIMULATING HORMONE 0.411 uIU/ML (0.358-3.740); TOTAL PROTEIN 6.6 GM/DL (6.4-8.2); TROPONIN I < 0.02 NG/ML (< 0.10)
[2018-07-15] MEDS ORDERED: ISOVUE-370 76% 100ML VIAL (Q9967) As Ordered ONE (13:13)
[2018-07-15] MEDS ORDERED: FUROSEMIDE 20 MG/2 ML VIAL (J1940) IV ONE (13:15)
[2018-07-15 16:08] VITALS: O2SAT 88
--- NOTE | 2018-07-15 16:17 | REP ---
CT ANGIOGRAM CHEST: TECHNIQUE: Axial contrast enhanced images from the thoracic inlet to the upper abdomen using 100 mL Isovue 370 intravenous contrast material with multiplanar reformations. COMPARISON: 03/01/[address] evidence of pulmonary embolism. There is no thoracic aortic aneurysm or dissection. There is cardiomegaly. Oval soft-tissue nodule in the right infrahilar region along the spine has slightly increased in size measuring 1.4 x 1.0 cm. Otherwise no mediastinal or hilar adenopathy is seen. There is mild pericardial fluid. There is a tiny amount of right pleural fluid. A nodule in the anterior right upper lobe in a subpleural location has slightly increased in size measuring 1.6 x 1.5 cm, previously 1.4 x 1.1 cm. A nodule more inferiorly in the posterior right upper lobe has also slightly increased in size measuring 7 mm, previously 5 mm. Stable subcentimeter nodule is seen just above the minor fissure. Stable subcentimeter nodule is seen in the left upper lobe on image 21. There is a new subcentimeter nodular density in the left upper lobe on image 28. There is slight increase in size of a subcentimeter nodule in the apical segment of the left lower lobe on image 33. Stable nodule is seen in the left upper lobe on image 37. Stable nodule is seen in the lingula on image 55, less than 1 cm in diameter. There are relatively stable scattered fibro atelectatic changes bilaterally. A biliary stent is again noted. There is extensive biliary air again noted. Geographic hypodense area contains calcifications in the posterior superior right lobe of the liver increased in size since prior study. This is compatible with neoplasm as suggested on PET CT of 06/28/2018 IMPRESSION: No CT evidence of pulmonary embolism or aortic dissection. Mild increase in size of pulmonary nodules as discussed above. Mass posterior right lobe of liver. Electronically Signed by Yared Snider MD 07/19/2018 09:46 A
[2018-07-15] MEDS ORDERED: LOSA25TA14 PO (17:59)
[2018-07-15] MEDS ORDERED: AMIO200T PO (17:59)
[2018-07-15] MEDS ORDERED: OMEP-221 PO (18:00)
[2018-07-15] MEDS ORDERED: LORazepam 0.5 MG TAB PO PRN (18:15)
--- NOTE | 2018-07-15 19:17 | HPEPDOC ---
General Date of Admission Jul 15, 2018 at 17:57 Date of Service: Jul 15, 2018 Chief Complaint The patient is a 83-year-old female admitted with a reason for visit of Hypoxemia. Source: Patient, Family History of Present Illness 83 yo F with metastatic colon cancer with liver and lung lesions, first diagnosed in 2012, s/p 2 resection, liver directed therapy, and cetuximab/cap ecitabine a few times not finished due to cardiac complications, CA 5 years ago, CAD, chronic CHF with LVEF 30-35% per echo in 2018, presented to the ED for shortness of breath and dyspnea on exertion. The patient had an CA 5 years ago, and she developed CHF. The most echocardiogram recoreded here was 1 year ago, showing grade I diastolic dysfunction and systolic dysfunction with LVEF 30-35%. She states that she was put on amiodarone for "arrhythmia" initially twice/day, but currently she takes it once every other day. She has had chronic cough. This time, she is short of breath even while she is resting. She denies a fever, chills, nausea, vomiting, or diarrhea. She denies chest pain or palpitation. Home Medications Scheduled Amiodarone HCl (Amiodarone HCl) 200 Mg Tablet, 200 MG PO 3XW, (Reported) WED/WED/WED Apixaban (Eliquis) 2.5 Mg Tab, 2.5 MG PO BID, (Reported) Aspirin (Aspirin EC) 81 Mg Tab, 81 MG PO DAILY, (Reported) Atorvastatin Calcium (Atorvastatin Calcium) 40 Mg Tab, 40 MG PO DAILY, (Reported) Buspirone HCl (Buspirone HCl) 10 Mg Tab, 10 MG PO BID, (Reported) Cholecalciferol (Vitamin D3) (Vitamin D3) 2,000 Unit Cap, 2,000 UNIT PO DAILY, (Reported) Hydrochlorothiazide (Hydrochlorothiazide) 12.5 Mg Tab, 12.5 MG PO DAILY, (Reported) Levothyroxine Sodium (Levothyroxine Sodium) 75 Mcg Tab, 75 MCG PO DAILY, (Reported) Losartan Potassium (Losartan Potassium) 25 Mg Tablet, 25 MG PO DAILY, (Reported) Metoprolol Succinate (Metoprolol Succinate) 25 Mg Tab, 12.5 MG PO BID, (Reported) Omeprazole (Omeprazole) 40 Mg Capsule.dr, 40 MG PO DAILY, (Reported) Scheduled PRN Lorazepam (Lorazepam) 0.5 Mg Tab, 0.5 MG PO BID PRN for ANXIETY, (Reported) Nitroglycerin (Nitrostat) 0.4 Mg Subl, 0.4 MG SL NITRO PRN for CHEST PAIN, (Rep orted) Allergies Coded Allergies: albuterol (Verified Allergy, Severe, Shortness of breath, 05/04/18) ipratropium (Verified Allergy, Severe, Shortness of breath, 05/04/18) Past Medical History Medical History systolic CHF, CA, metastatic colon cancer Surgical History Hysterectomy, cholecystectomy, colon resection x2 Family History Brother, heart issue Mother, female cancer Brother, esophageal cancer Sister, pancreatic cancer Social History * Smoker: Denies Alcohol: Denies Drugs: denies see above A-FIB/CHADSVASC A-FIB History Current/History of A-Fib/PAF?: Yes Current PO Anticoag Therapy: Yes Review of Systems Constitutional: Denies: Chills, Fever, Malaise, Night Sweats, Weakness, Fatigue, Weight Loss, Lethargy, Other Eyes: Denies: Pain, Vision change, Conjunctivae inflammation, Eyelid inflammation, Redness, Other ENT: Denies: Head Aches, Ear Pain, Dysphagia, Sinus Congestion, Post Nasal Drip, Sore Throat, Epistaxis, Other Symptoms Skin: Denies: Rash, Lesions, Jaundice, Bruising, Itching, Dry, Breakdown, Nail Changes, Other Pulmonary: Reports: Dyspnea, Cough Cardiovascular: Denies: Chest Pain, Palpitations, Orthopnea, Paroxysmal Noc. Dyspnea, Edema, Lt Headedness, Other Symptoms Gastrointestinal: Denies: Nausea, Vomiting, Abdominal Pain, Diarrhea, Constipation, Melena, Hematochezia, Other Symptoms Genitourinary: Denies: Dysuria, Frequency, Incontinence, Hematuria, Retention, Other Symptoms Hematologic: Denies: Bruising, Bleeding Excessively, Petecchia, Purpura, Enlarged Lymph Nodes, Other Hematologic Endocrine: Denies: Polydipsia, Polyphagia, Polyuria, Heat Intolerance, Cold Intolerance, Other Endocrine Sx Musculoskeletal: Denies: Neck Pain, Back Pain, Shoulder Pain, Arm Pain, Hand Pain, Leg Pain, Foot Pain, Joint Pain, Muscle Pain, Spasms, Other Symptoms Neurological: Denies: Weakness, Numbness, Incoordination, Change in speech, Confusion, Seizures, Other Symptoms Psych: Denies: Mood Normal, Anxiety, Depression, Memory Issues, Thoughts of Self Harm, Anger, Thoughts of Harming Other, Other Psych Physical Examination General Exam: Positive: Alert, Cooperative Eye Exam: Positive: PERRLA, Conjunctiva & lids normal ENT Exam: Positive: Atraumatic, Mucous membr. moist/pink Neck Exam: Positive: Supple, JVD Chest Exam: Positive: Clear to auscultation Abdomen Exam: Positive: Normal bowel sounds Extremity Exam: Positive: Edema (+1) Skin Exam: Positive: Nl turgor and temperature Neuro Exam: Positive: Normal Speech Psych Exam: Positive: Mood NL Vital Signs Vital Signs Date Time Temp Pulse Resp B/P (MAP) Pulse Ox O2 Delivery O2 Flow Rate FiO2 07/15/18 17:52 87 98 07/15/18 17:30 113/64 (80) 07/15/18 16:08 Room Air 07/15/18 11:19 98.0 18 Laboratory Data Labs 24H Laboratory Tests 2 07/15/18 12:01: Immature Granulocyte % (Auto) 0.4, White Blood Count 8.0, Red Blood Count 4.02, Hemoglobin 11.1L, Hematocrit 34.8L, Mean Corpuscular Volume 86.6, Mean Corpuscular Hemoglobin 27.6, Mean Corpuscular Hemoglobin Concent 31.9L, Red Cell Distribution Width 15.3H, Platelet Count 321, Neutrophils (%) (Auto) 83.5H, Lymphocytes (%) (Auto) 4.7L, Monocytes (%) (Auto) 9.3H, Eosinophils (%) (Auto) 1.6, Basophils (%) (Auto) 0.5, Neutrophils # (Auto) 6.6, Lymphocytes # (Auto) 0.4L, Monocytes # (Auto) 0.7, Eosinophils # (Auto) 0.1, Basophils # (Auto) 0.0, Nucleated Red Blood Cells % (auto) 0.0, Prothrombin Time 17.0H, Prothromb Time I nternational Ratio 1.36, Blood Gas Bicarbonate Standard 28.8, Venous Blood pH 7.388, Venous Blood Partial Pressure CO2 53.6H, Venous Blood Partial Pressure O2 40.8, Venous Blood Total Carbon Dioxide 33.2H, Venous Blood HCO3 31.6H, Venous Blood Oxygen Saturation 71.1, Venous Blood Base Excess 5.4H, Anion Gap 8, Glomerular Filtration Rate > 60.0, Lactic Acid Level 1.9, Calcium Level 9.3, Aspartate Amino Transf (AST/SGOT) 26, Alanine Aminotransferase (ALT/SGPT) 18, Alkaline Phosphatase 105, Total Bilirubin 0.7, Direct Bilirubin 0.2, Total Creatine Kinase 36, Creatine Kinase MB < 1.0, Creatine Kinase MB Relative Index 2.78, Troponin I < 0.02, WZ-Nme-E-Type Natriuretic Peptide 983H, Total Protein 6.6, Albumin 2.9L, Albumin/Globulin Ratio 0.78L, Thyroid Stimulating Hormone (TSH) 0.411 CBC/BMP Laboratory Tests 07/15/18 12:01 Red Blood Count 4.02, Mean Corpuscular Volume 86.6, Mean Corpuscular Hemoglobin 27.6, Mean Corpuscular Hemoglobin Concent 31.9 L, Red Cell Distribution Width 15.3 H, Neutrophils (%) (Auto) 83.5 H, Lymphocytes (%) (Auto) 4.7 L, Monocytes (%) (Auto) 9.3 H, Eosinophils (%) (Auto) 1.6, Basophils (%) (Auto) 0.5, Neutrophils # (Auto) 6.6, Lymphocytes # (Auto) 0.4 L, Monocytes # (Auto) 0.7, Eosinophils # (Auto) 0.1, Basophils # (Auto) 0.0 Microbiology Microbiology 07/15/18 Blood Culture, Received Pending 07/15/18 Blood Culture, Received Pending Problems (1) Hypoxia Problem Text: # Dyspnea on exertion - PE was ruled out by CT angio. She has a few metastatic lesions in the lung, and it does not seem to cause her breathing symptom. CT does not show pleural effusion or pulmonary vascular congestion. No clinical evidence of pneumonia. The etiology of hypoxia and dyspnea on exertion is not clear. Seems to be lung parenchymal disease. Could be amiodarone toxicity. - Will have follow up troponin. - Will repeat echocardiogram. The last echocardiogram is about an year ago, showing LVEF 30-35%. - Will send TSH. # Lower extremity edema - Not clear if this due to CHF exacerbation. BNP is elevated, but when she had CHF exacerbation, BNP was >2000, this time 900. - Follow echocardiogram. - Will put cardiology consult. # HTN, a fib, HLD - Cont. metoprolol, losartan, atorvastatin, hctz - Continue eliquis # Depression and anxiety - Continue home medications # Hypothyroidism - Continue levothyroxine. Plan / VTE VTE Prophylaxis Ordered?: Yes JOSÉ LUIS WARREN MD Jul 15, 2018 19:17
[2018-07-15 20:22] LABS: THYROID STIMULATING HORMONE 0.346 uIU/ML (0.358-3.740); TROPONIN I < 0.02 NG/ML (< 0.10)
[2018-07-15 22:00] VITALS: BP 126/56
[2018-07-15] MEDS: busPIRone 10 MG TAB PO SCH (22:56)
[2018-07-15] MEDS: APIXABAN 2.5 MG TAB (ELIQUIS) PO SCH (22:56)
[2018-07-15] MEDS: METOPROLOL SUCC *XL* 12.5MG PER 1/2 TAB (TopROL *XL*) PO SCH (23:27)
[2018-07-16] MEDS: LEVOTHYROXINE 75MCG TABLET (0.075MG) PO SCH (05:48)
[2018-07-16 06:00] VITALS: BP 106/55
[2018-07-16 06:53] LABS: HEMATOCRIT 33.5 % (36.0-47.0); HEMOGLOBIN 10.6 g/dl (12.0-15.5); MEAN CORPUSCULAR HGB CONC 31.6 g/dl (32.0-36.5); MEAN CORPUSCULAR VOLUME 85.2 fl (80.0-96.0); PLATELET COUNT, AUTOMATED 294 10^3/uL (150-450); RED BLOOD COUNT 3.93 10^6/uL (4.00-5.40); WHITE BLOOD COUNT 7.6 10^3/uL (4.0-10.0)
[2018-07-16 07:23] LABS: ALBUMIN 2.8 GM/DL (3.2-5.2); ALT/SGPT 19 U/L (12-78); BILIRUBIN,TOTAL 0.7 MG/DL (0.2-1.0); BLOOD UREA NITROGEN 17 MG/DL (7-18); CALCIUM LEVEL 9.2 MG/DL (8.8-10.2); CARBON DIOXIDE LEVEL 30 MEQ/L (21-32); CHLORIDE LEVEL 99 MEQ/L (98-107); GLOMERULAR FILTRATION RATE 56.5 (>32); GLUCOSE, FASTING 115 MG/DL (70-100); POTASSIUM SERUM 3.7 MEQ/L (3.5-5.1); SODIUM LEVEL 138 MEQ/L (136-145); TOTAL PROTEIN 6.9 GM/DL (6.4-8.2); TROPONIN I < 0.02 NG/ML (< 0.10)
--- NOTE | 2018-07-16 08:48 | ECGEPIP ---
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
[2018-07-16] MEDS: LOSARTAN 25 MG TAB PO SCH (09:34)
[2018-07-16] MEDS: VITAMIN D 1,000 INTERNATIONAL UNITS TABLET PO SCH (09:34)
[2018-07-16] MEDS: ATORVASTATIN 20 MG TAB PO SCH (09:34)
[2018-07-16] MEDS: hydroCHLOROthiazide 12.5 MG CAPSULE PO SCH (09:34)
[2018-07-16] MEDS: busPIRone 10 MG TAB PO SCH ×2 (09:34→20:59)
[2018-07-16] MEDS: PANTOPRAZOLE 40MG TAB (PROTONIX) PO SCH (09:34)
[2018-07-16] MEDS: APIXABAN 2.5 MG TAB (ELIQUIS) PO SCH ×2 (09:34→20:59)
[2018-07-16] MEDS: METOPROLOL SUCC *XL* 12.5MG PER 1/2 TAB (TopROL *XL*) PO SCH ×2 (09:35→20:59)
[2018-07-16 14:00] VITALS: BP 120/59
[2018-07-16 22:00] VITALS: BP 104/51
[2018-07-17] MEDS ORDERED: ACETAMINOPHEN TAB 650MG DOSE (2X325MG) PO PRN (04:00)
[2018-07-17 06:00] VITALS: BP 108/55
[2018-07-17] MEDS: LEVOTHYROXINE 75MCG TABLET (0.075MG) PO SCH (06:07)
[2018-07-17 06:28] LABS: HEMOGLOBIN 9.9 g/dl (12.0-15.5); MEAN CORPUSCULAR HEMOGLOBIN 26.4 pg (27.0-33.0); MEAN CORPUSCULAR HGB CONC 31.9 g/dl (32.0-36.5); MEAN CORPUSCULAR VOLUME 82.7 fl (80.0-96.0); PLATELET COUNT, AUTOMATED 293 10^3/uL (150-450); RED BLOOD COUNT 3.75 10^6/uL (4.00-5.40)
[2018-07-17 06:49] LABS: ALBUMIN 2.6 GM/DL (3.2-5.2); BILIRUBIN,TOTAL 0.6 MG/DL (0.2-1.0); CALCIUM LEVEL 8.1 MG/DL (8.8-10.2); CREATININE FOR GFR 0.99 MG/DL (0.55-1.30); GLOMERULAR FILTRATION RATE 57.2 (>32); POTASSIUM SERUM 3.7 MEQ/L (3.5-5.1); TOTAL PROTEIN 5.9 GM/DL (6.4-8.2)
[2018-07-17] MEDS: PANTOPRAZOLE 40MG TAB (PROTONIX) PO SCH (08:20)
[2018-07-17] MEDS: APIXABAN 2.5 MG TAB (ELIQUIS) PO SCH ×2 (08:20→20:21)
[2018-07-17] MEDS: ATORVASTATIN 20 MG TAB PO SCH (08:20)
[2018-07-17] MEDS: VITAMIN D 1,000 INTERNATIONAL UNITS TABLET PO SCH (08:20)
[2018-07-17] MEDS: hydroCHLOROthiazide 12.5 MG CAPSULE PO SCH (08:20)
[2018-07-17] MEDS: busPIRone 10 MG TAB PO SCH ×2 (08:20→20:21)
--- NOTE | 2018-07-17 08:20 | ECHO ---
DATE OF STUDY: 07/16/2018 INDICATION: Heart failure, unspecified. HEIGHT: 62 inches. WEIGHT: 72 kg. 2D MEASUREMENTS: Ventricular septum: 1.20 cm Posterior wall: 1.18 cm Left ventricle diastole: 5.0 cm Aortic anulus 2.1 cm Aortic root: 3.0 cm Left atrium: 3.6 cm Inferior vena cava: 1.6 cm DOPPLER MEASUREMENTS: Aortic valve velocity: 117 cm/s LVOT velocity: 73.9 cm/s LVOT VTI: 15.6 cm Trace mitral regurgitation. Mitral E velocity: 50.4 cm/s Mitral A velocity: 63.5 cm/s Mitral deceleration time: 352 ms Very mild tricuspid regurgitation. Estimated right ventricle systolic pressure: 26-31 mmHg assuming a right pressure of 5-10 mmHg. Trace pulmonic regurgitation. Pulmonary systolic pressure: 30 mmHg MITRAL ANNULAR TISSUE DOPPLER: E prime septal: 4.4 cm/s E prime lateral: 4.6 cm/s DESCRIPTION: Rhythm was sinus. No pericardial effusion. This was a moderately technically difficult echocardiogram. This was a 2D, M-mode, color flow Doppler and pulse wave Doppler examination and included mitral annular tissue Doppler. CONCLUSIONS: 1. Normal left ventricle size and wall thickness. Akinesis of the left ventricle apex and dyskinesis of the distal half of the ventricular septum. Normal regional wall motion and wall thickening elsewhere. Severe reduction of LV systolic function. Left ventricular ejection fraction (LVEF) 35% by visual estimate. No left ventricle apical thrombus. Grade 1 LV diastolic dysfunction (impaired relaxation filling pattern). 2. Normal right ventricle size and systolic function. Mild right ventricle hypertrophy. 3. Mild mitral annular calcification. Trace mitral regurgitation. 4. Cardiac rhythm care management specialist seen in the right ventricle suggestive of an implantable cardioverter-defibrillator (ICD). 5. Prominent epicardial fat over the right ventricle free wall. MTDD
[2018-07-17] MEDS: LOSARTAN 25 MG TAB PO SCH (08:22)
[2018-07-17] MEDS: METOPROLOL SUCC *XL* 12.5MG PER 1/2 TAB (TopROL *XL*) PO SCH ×2 (08:24→20:21)
[2018-07-17] MEDS ORDERED: DOCUSATE SODIUM 100 MG CAP PO PRN (11:00)
[2018-07-17] MEDS ORDERED: MIRALAX *UNIT DOSE* 17GM PACKET PO PRN (11:15)
[2018-07-17 14:00] VITALS: BP 110/52
--- NOTE | 2018-07-17 19:32 | IPNPDOC ---
Subjective Date Seen The patient was seen on 07/17/18. Subjective Chief Complaint/HPI Patient states not currently feeling dyspneic, comfortable on room air. States her dyspnea started around the time that her stomach discomfort started, around 07/14. Stomach pain is described as crampy. She does admit to constipation. Events since last encounter Patient inadvertently not assigned an attending upon admission, service notified of her admission today. Constitutional: Denies: Chills, Fever Pulmonary: Reports: Cough; Denies: Dyspnea (not currently) Cardiovascular: Denies: Chest Pain, Palpitations Gastrointestinal: Reports: Abdominal Pain, Constipation; Denies: Nausea, Vomiting Neurological: Denies: Weakness Psych: Reports: Mood Normal Objective Physical Examination General Exam: Positive: Alert, Cooperative Eye Exam: Positive: PERRLA, Conjunctiva & lids normal ENT Exam: Positive: Atraumatic, Mucous membr. moist/pink Neck Exam: Positive: Supple, JVD Chest Exam: Positive: Clear to auscultation Heart Exam: Positive: Rate Normal, Regular Rhythm; Negative: Gallops, Murmurs, Rubs Abdomen Exam: Positive: Normal bowel sounds, Soft; Negative: Tenderness Extremity Exam: Positive: Edema (trace) Skin Exam: Positive: Nl turgor and temperature Neuro Exam: Positive: Normal Speech Psych Exam: Positive: Mood NL Assessment /Plan Problems (1) Abdominal pain Problem Text: Known colon malignancy with mets. However, benign abdominal exam today, and she seems relatively comfortable. She admits constipation, and will see if symptoms improve with some bowel care. (2) Dyspnea on exertion Problem Text: Per patient, improving during admission. No PE. This might be secondary to a mild decompensation in heart failure, now improved. She does have known metastatic dz to lungs. Currently asymptomatic. (3) Systolic congestive heart failure Problem Text: EF 30% on echocardiogram. Appears to be euvolemic today. BNP was a bit elevated upon admission, but has normalized today. I ordered daily weights and I&Os. (4) Atrial fibrillation Problem Text: She has a hx of atrial fibrillation, but actually sounds as though she is in sinus rhythm today. On metoprolol and Eliquis. (5) Hypothyroidism Problem Text: TSH drawn twice within a couple hours, initially WNL and then slightly low. Will followup in the office. Plan/VTE VTE Prophylaxis Ordered?: Yes VS, I&O, 24H, Fishbone Vital Signs/I&O Vital Signs Date Time Temp Pulse Resp B/P (MAP) Pulse Ox O2 Delivery O2 Flow Rate FiO2 07/17/18 14:00 96.6 63 18 110/52 (71) 95 07/15/18 16:08 Room Air I&O- Last 24 Hours up to 6 AM 07/17/18 06:00 Intake Total 1030 ml Output Total 300 ml Balance 730 ml Laboratory Data 24H LABS Laboratory Tests 2 07/17/18 05:43: Nucleated Red Blood Cells % (auto) 0.0, Anion Gap 9, Glomerular Filtration Rate 57.2, Blood Urea Nitrogen 21H, Creatinine 0.99, Sodium Level 137, Potassium Level 3.7, Chloride Level 99, Carbon Dioxide Level 29, Calcium Level 8.1L, Aspartate Amino Transf (AST/SGOT) 18, Alanine Aminotransferase (ALT/SGPT) 15, Alkaline Phosphatase 97, Total Bilirubin 0.6, Total Protein 5.9L, Albumin 2.6L, YF-Nhk-P-Type Natriuretic Peptide 221, Albumin/Globulin Ratio 0.79L CBC/BMP Laboratory Tests 07/17/18 05:43 Red Blood Count 3.75 L, Mean Corpuscular Volume 82.7, Mean Corpuscular Hemoglobin 26.4 L, Mean Corpuscular Hemoglobin Concent 31.9 L, Red Cell Distribution Width 15.7 H, Calcium Level 8.1 L, Aspartate Amino Transf (AST/SGOT) 18, Alanine Aminotransferase (ALT/SGPT) 15, Alkaline Phosphatase 97, Total Bilirubin 0.6, Total Protein 5.9 L, Albumin 2.6 L Microbiology Microbiology 07/15/18 Blood Culture - Preliminary, Resulted No Growth after 48 hours. All Specime... 07/15/18 Blood Culture - Preliminary, Resulted No Growth after 48 hours. All Specime... ANKITA DAVIS DO Jul 17, 2018 19:32
[2018-07-17 22:00] VITALS: BP 108/62
[2018-07-18 05:37] LABS: HEMATOCRIT 31.1 % (36.0-47.0); HEMOGLOBIN 9.9 g/dl (12.0-15.5); MEAN CORPUSCULAR HEMOGLOBIN 27.1 pg (27.0-33.0); MEAN CORPUSCULAR HGB CONC 31.8 g/dl (32.0-36.5); MEAN CORPUSCULAR VOLUME 85.2 fl (80.0-96.0); PLATELET COUNT, AUTOMATED 284 10^3/uL (150-450); RED BLOOD COUNT 3.65 10^6/uL (4.00-5.40)
[2018-07-18 06:00] VITALS: BP 111/59
[2018-07-18 06:05] LABS: ALBUMIN 2.7 GM/DL (3.2-5.2); BILIRUBIN,TOTAL 0.5 MG/DL (0.2-1.0); CALCIUM LEVEL 8.5 MG/DL (8.8-10.2); CREATININE FOR GFR 0.95 MG/DL (0.55-1.30); POTASSIUM SERUM 3.8 MEQ/L (3.5-5.1); TOTAL PROTEIN 6.7 GM/DL (6.4-8.2)
[2018-07-18] MEDS: LEVOTHYROXINE 75MCG TABLET (0.075MG) PO SCH (06:30)
[2018-07-18 08:16] VITALS: BP 111/59
[2018-07-18] MEDS: LOSARTAN 25 MG TAB PO SCH (08:16)
[2018-07-18] MEDS: APIXABAN 2.5 MG TAB (ELIQUIS) PO SCH (08:16)
[2018-07-18] MEDS: PANTOPRAZOLE 40MG TAB (PROTONIX) PO SCH (08:16)
[2018-07-18] MEDS: METOPROLOL SUCC *XL* 12.5MG PER 1/2 TAB (TopROL *XL*) PO SCH (08:16)
[2018-07-18] MEDS: VITAMIN D 1,000 INTERNATIONAL UNITS TABLET PO SCH (08:16)
[2018-07-18] MEDS: busPIRone 10 MG TAB PO SCH (08:16)
[2018-07-18] MEDS: hydroCHLOROthiazide 12.5 MG CAPSULE PO SCH (08:16)
[2018-07-18] MEDS: ATORVASTATIN 20 MG TAB PO SCH (08:16)
--- NOTE | 2018-07-18 12:56 | DSES ---
DATE OF ADMISSION: 07/15/2018 DATE OF DISCHARGE: 07/18/2018 PRIMARY CARE PHYSICIAN: Dr. Phillip Herbert ATTENDING TODAY: Dr. Ramakrishna Wood HISTORY: This is an 83-year-old female patient who presented to [facility] emergency room. She has a known history of metastatic colon cancer with liver and lung lesions diagnosed in 2012. She has undergone treatment, although had to be discontinued secondary to cardiac complications. She was admitted to the hospital with dyspnea. She underwent CT angiogram to rule out pulmonary embolism which was in fact benign. Troponins were negative. Repeat echocardiogram showed stability in comparison with her echocardiogram done in September 2017 at [facility]. Her amiodarone was discontinued on admission to the hospital and it has not been resumed. Will discharge the patient without amiodarone moving forward, although I will cover this with my attending physician to make sure he is in agreement with that. It appears as though this was discontinued by the admitting physician. The patient's shortness of breath which she presented with on admission has resolved. She has been cleared by physical therapy to return home. She is on her routine at home medications with the exception of the amiodarone which she was only taking every other day. DISCHARGE DIAGNOSES: 1. Dyspnea on exertion. 2. Hypoxia. 3. Lower extremity edema. 4. Hypertension. 5. Atrial fibrillation. 6. Hyperlipidemia. 7. Chronic systolic congestive heart failure. 8. Depression. 9. Anxiety. 10. Hypothyroidism. DISCHARGE MEDICATIONS: - Apixaban 2.5 mg by mouth twice a day - aspirin 81 mg daily - atorvastatin 40 mg daily - BuSpar 1 mg by mouth twice a day - vitamin D3 2000 units daily - hydrochlorothiazide 12.5 mg daily - levothyroxine 75 mcg by mouth daily - lorazepam 0.5 mg by mouth twice daily as needed for anxiety - losartan 25 mg daily - metoprolol 12.5 mg by mouth twice a day - nitroglycerin 0.4 mg sublingually as needed for chest pain - omeprazole 40 mg daily DISCHARGE PLAN: Followup with Dr. Herbert and cardiology in one week. Her activity should be as tolerated. Her diet is 2 grams, low sodium. edited: 07/19/2018 0727 tkf MTDD
== END 2018-07-18 11:32 | disposition home or self-care (01) | DRG 292 ==
LOC: M ED 11:19 → M ED INP 17:57 → M MSPAV 21:40
PROVIDERS: ADMIT Internal Medicine; ATTEND Family Medicine
DX: I11.0 Hypertensive heart disease with heart failure (principal); C18.9 Malignant neoplasm of colon, unspecified; C78.7 Secondary malignant neoplasm of liver and intrahepatic bile duct; C78.00 Secondary malignant neoplasm of unspecified lung; I50.43 Acute on chronic combined systolic (congestive) and diastolic (congestive) heart failure; F41.9 Anxiety disorder, unspecified; I48.91 Unspecified atrial fibrillation; I25.10 Atherosclerotic heart disease of native coronary artery without angina pectoris; R09.02 Hypoxemia; E03.9 Hypothyroidism, unspecified; F32.9 Major depressive disorder, single episode, unspecified; I25.2 Old myocardial infarction; Z79.01 Long term (current) use of anticoagulants; Z79.82 Long term (current) use of aspirin; Z79.899 Other long term (current) drug therapy; Z88.8 Allergy status to other drugs, medicaments and biological substances; Z90.49 Acquired absence of other specified parts of digestive tract

== ENCOUNTER → 2018-08-18 | Outpatient (REF) | payer MEDICARE ==
[~2018-08-18] MED LIST changes: +LOSA25TA14 PO; +METO1TAB87; +OMEP-221 PO
[2018-08-18 13:37] LABS: BASO % 0.7 % (0.0-1.0); EOS # 0.2 10^3/uL (0.0-0.50); EOS % 3.2 % (0.0-3.0); HEMATOCRIT 35.6 % (36.0-47.0); HEMOGLOBIN 10.9 g/dl (12.0-15.5); LYMPH # 0.6 10^3/uL (1.5-4.5); LYMPH % 11.4 % (24.0-44.0); MEAN CORPUSCULAR HEMOGLOBIN 26.4 pg (27.0-33.0); MEAN CORPUSCULAR HGB CONC 30.6 g/dl (32.0-36.5); MEAN CORPUSCULAR VOLUME 86.2 fl (80.0-96.0); MONO # 0.4 10^3/uL (0.0-0.8); MONO % 7.1 % (0.0-5.0); NEUTROPHILS # 4.3 10^3/uL (1.8-7.7); NEUTROPHILS % 77.2 % (36.0-66.0); PLATELET COUNT, AUTOMATED 294 10^3/uL (150-450); RED BLOOD COUNT 4.13 10^6/uL (4.00-5.40); WHITE BLOOD COUNT 5.6 10^3/uL (4.0-10.0)
== END ==
LOC: M LABNEURO 10:14
DX: C18.9 Malignant neoplasm of colon, unspecified (principal)

== ENCOUNTER → 2018-09-14 | Outpatient (REF) | payer MEDICARE ==
[2018-09-14 12:58] LABS: BASO % 0.3 % (0.0-1.0); EOS # 0.3 10^3/uL (0.0-0.50); EOS % 3.8 % (0.0-3.0); HEMOGLOBIN 11.6 g/dl (12.0-15.5); LYMPH # 0.6 10^3/uL (1.5-4.5); MEAN CORPUSCULAR HEMOGLOBIN 26.6 pg (27.0-33.0); MEAN CORPUSCULAR HGB CONC 30.5 g/dl (32.0-36.5); MEAN CORPUSCULAR VOLUME 87.2 fl (80.0-96.0); MONO # 0.6 10^3/uL (0.0-0.8); NEUTROPHILS # 6.3 10^3/uL (1.8-7.7); NEUTROPHILS % 79.4 % (36.0-66.0); PLATELET COUNT, AUTOMATED 281 10^3/uL (150-450); RED BLOOD COUNT 4.36 10^6/uL (4.00-5.40); WHITE BLOOD COUNT 7.9 10^3/uL (4.0-10.0)
[2018-09-14 13:28] LABS: ALBUMIN 3.2 GM/DL (3.2-5.2); ALT/SGPT 15 U/L (12-78); BILIRUBIN,TOTAL 0.5 MG/DL (0.2-1.0); BLOOD UREA NITROGEN 12 MG/DL (7-18); CALCIUM LEVEL 8.9 MG/DL (8.8-10.2); CARBON DIOXIDE LEVEL 30 MEQ/L (21-32); CHLORIDE LEVEL 107 MEQ/L (98-107); CREATININE FOR GFR 0.84 MG/DL (0.55-1.30); GLOMERULAR FILTRATION RATE > 60.0 (>32); GLUCOSE, FASTING 119 MG/DL (70-100); MAGNESIUM LEVEL 1.4 MG/DL (1.8-2.4); POTASSIUM SERUM 3.3 MEQ/L (3.5-5.1); SODIUM LEVEL 144 MEQ/L (136-145); TOTAL PROTEIN 6.5 GM/DL (6.4-8.2)
== END ==
LOC: M LABNEURO 11:44
PROVIDERS: ATTEND Internal Medicine Hematology & Oncology
DX: C18.9 Malignant neoplasm of colon, unspecified (principal)

== ENCOUNTER → 2018-09-28 | Outpatient (REF) | payer MEDICARE ==
[2018-09-28 14:01] LABS: BASO # 0.1 10^3/uL (0.0-0.2); BASO % 0.7 % (0.0-1.0); EOS # 0.3 10^3/uL (0.0-0.50); EOS % 4.2 % (0.0-3.0); HEMATOCRIT 35.6 % (36.0-47.0); HEMOGLOBIN 10.9 g/dl (12.0-15.5); LYMPH # 0.8 10^3/uL (1.5-4.5); LYMPH % 10.7 % (24.0-44.0); MEAN CORPUSCULAR HGB CONC 30.6 g/dl (32.0-36.5); MEAN CORPUSCULAR VOLUME 88.1 fl (80.0-96.0); MONO # 0.4 10^3/uL (0.0-0.8); MONO % 5.5 % (0.0-5.0); NEUTROPHILS # 5.6 10^3/uL (1.8-7.7); NEUTROPHILS % 78.2 % (36.0-66.0); PLATELET COUNT, AUTOMATED 307 10^3/uL (150-450); RED BLOOD COUNT 4.04 10^6/uL (4.00-5.40); WHITE BLOOD COUNT 7.1 10^3/uL (4.0-10.0)
[2018-09-28 14:24] LABS: ALBUMIN 3.1 GM/DL (3.2-5.2); ALT/SGPT 15 U/L (12-78); BILIRUBIN,TOTAL 0.3 MG/DL (0.2-1.0); BLOOD UREA NITROGEN 11 MG/DL (7-18); CALCIUM LEVEL 8.6 MG/DL (8.8-10.2); CARBON DIOXIDE LEVEL 27 MEQ/L (21-32); CHLORIDE LEVEL 107 MEQ/L (98-107); CREATININE FOR GFR 0.78 MG/DL (0.55-1.30); GLOMERULAR FILTRATION RATE > 60.0 (>32); GLUCOSE, FASTING 128 MG/DL (70-100); MAGNESIUM LEVEL 1.4 MG/DL (1.8-2.4); POTASSIUM SERUM 4.1 MEQ/L (3.5-5.1); SODIUM LEVEL 141 MEQ/L (136-145); TOTAL PROTEIN 6.3 GM/DL (6.4-8.2)
== END ==
LOC: M LABNEURO 09:11
PROVIDERS: ATTEND Internal Medicine Hematology & Oncology
DX: C18.9 Malignant neoplasm of colon, unspecified (principal)

== ENCOUNTER → 2018-10-12 | Outpatient (REF) | payer MEDICARE ==
[~2018-10-12] MED LIST changes: +BISO5TAB14 PO; -BISO5TAB5 PO; +CALC200T15 PO; +FAMO20TA PO; +FERR1TAB8 PO; +HM M250T PO; -LORA0.5T11 PO; +LORA0.5T5 PO; +MAG400TA PO; +MAGN1INJ2 IV; +MAGN400T2 PO; +MAGN400T3 PO; +MAGN64TASA PO; -OMEP40CA2 PO; +OMEP40CA97 PO; +VITA100066 PO; +[UNRECOGNIZED DRUG - CODE] IV
[2018-10-12 18:27] LABS: BASO % 0.5 % (0.0-1.0); EOS # 0.3 10^3/uL (0.0-0.5); EOS % 3.4 % (0.0-3.0); HEMATOCRIT 36.2 % (36.0-47.0); HEMOGLOBIN 11.1 g/dl (12.0-15.5); LYMPH # 0.8 10^3/uL (1.5-5.0); LYMPH % 9.9 % (24.0-44.0); MEAN CORPUSCULAR HEMOGLOBIN 26.7 pg (27.0-33.0); MEAN CORPUSCULAR HGB CONC 30.7 g/dl (32.0-36.5); MONO # 0.7 10^3/uL (0.0-0.8); MONO % 8.2 % (0.0-5.0); NEUTROPHILS # 6.3 10^3/uL (1.5-8.5); NEUTROPHILS % 77.5 % (36.0-66.0); PLATELET COUNT, AUTOMATED 269 10^3/uL (150-450); RED BLOOD COUNT 4.16 10^6/uL (4.00-5.40); WHITE BLOOD COUNT 8.2 10^3/uL (4.0-10.0)
[2018-10-12 18:56] LABS: ALBUMIN 3.2 GM/DL (3.2-5.2); ALT/SGPT 15 U/L (12-78); BILIRUBIN,TOTAL 0.5 MG/DL (0.2-1.0); BLOOD UREA NITROGEN 18 MG/DL (7-18); CALCIUM LEVEL 8.7 MG/DL (8.8-10.2); CARBON DIOXIDE LEVEL 29 MEQ/L (21-32); CHLORIDE LEVEL 106 MEQ/L (98-107); CREATININE FOR GFR 0.87 MG/DL (0.55-1.30); GLOMERULAR FILTRATION RATE > 60.0 (>32); GLUCOSE, FASTING 83 MG/DL (70-100); MAGNESIUM LEVEL 1.3 MG/DL (1.8-2.4); POTASSIUM SERUM 4.2 MEQ/L (3.5-5.1); SODIUM LEVEL 143 MEQ/L (136-145); TOTAL PROTEIN 6.6 GM/DL (6.4-8.2)
== END ==
LOC: M LABNEURO 15:41
PROVIDERS: ATTEND Internal Medicine Hematology & Oncology
DX: C18.9 Malignant neoplasm of colon, unspecified (principal)

== ENCOUNTER → 2018-10-19 | Outpatient (CLI) | payer MEDICARE ==
[~2018-10-19] MED LIST changes: -BISO5TAB14 PO; +BISO5TAB9 PO; -CALC200T15 PO; -FAMO20TA PO; -FERR1TAB8 PO; +GASTROGRAFIN SOLUTION 30ML (Q9963) As Ordered ONE; -HM M250T PO; +ISOVUE-370 76% 100ML VIAL (Q9967) As Ordered ONE; +LORA0.5T11 PO; -LORA0.5T5 PO; -MAG400TA PO; -MAGN1INJ2 IV; -MAGN400T2 PO; -MAGN400T3 PO; -MAGN64TASA PO; +OMEP40CA2 PO; -OMEP40CA97 PO; -VITA100066 PO
--- NOTE | 2018-10-20 08:46 | REP ---
CT abdomen and pelvis with IV and oral contrast: History: Restaging scan colon carcinoma on treatment. Metastatic. CT contrast dose: 100 ml of intravenous Isovue 370. Comparison CT study: October 06, 2017. Findings: Preliminary digital cotton classer aide radiograph demonstrates clips in right upper quadrant adjacent to a common bile duct biliary stent, pacemaker in the enlarged heart, and surgical clips in the lower pelvis. There is mild gaseous distension of the colon through to the rectum. The lung bases show no evidence of pulmonary mass or infiltrate. There is some linear fibrosis in the left base. No pleural effusion is seen. Fairly extensive pneumobilia is again observed associated with the biliary stent which remains in place. The previously noted right lobe hepatic mass lesion is much decreased in size and contains calcifications. It measures only 1.6 cm today where as, it was approximately 3.6 cm October 06, 2017. There are two new small low-density lesions in the right lobe of the liver however today measuring 0.4 and 1.1 cm in greatest diameter respectively. These are adjacent to one another inferiorly in the right lobe and are seen projected on pages 33 and 35 of 144 in series 201 of today's exam. There is a small quantity of pericardial fluid effusion. A hiatal hernia is seen. The spleen is unchanged and unremarkable. No adrenal lesion is seen. No pancreatic abnormality is observed. There is a cyst in the upper pole right kidney measuring 2.3 cm in diameter unchanged. There is another cyst in the lower pole on the left, the 2.2 cm and also unchanged. No retroperitoneal mass or adenopathy is seen. The patient is status post left colon resection reanastomosis at the level of the rectum. No colonic mass lesion is appreciated. There is mild diverticulosis of the left colon without diverticulitis. Air and fluid content are seen throughout the colon. Appendix is surgically absent. The ileocecal valve is unremarkable. The uterus is surgically absent. Urinary bladder is intact. There are several small bowel diverticula noted. No small bowel mass lesion is seen. No abdominal wall defect is observed. Bone window settings show no bony destructive lesion. Impression: There are two small new low density liver lesions. It is difficult to exclude early hepatic metastatic lesions. The 3.6 cm lesion in the right lobe observed October 06, 2017 is much improved, 1.6 cm today. Common bile duct stent is again noted in place. There is air and liquid content throughout the colon but no obstructive lesion is seen. No new mass or adenopathy. Electronically Signed by Jose J Avelar MD 10/20/2018 12:45 P
--- NOTE | 2018-10-26 18:29 | REP ---
HISTORY: History of metastatic colon carcinoma. COMPARISON: All prior chest CTs were reviewed, the latest of which is dated 07/15/2018. CONTRAST: 100 mL Isovue-370. There is no change in the appearance of the mediastinum or pulmonary regina. No mass or adenopathy has developed. There are no pleural effusions. There is a slight pericardial effusion. There is a large hiatal hernia which has increased from the prior exam. The imaged upper abdomen shows a biliary stent with extensive pneumobilia essentially unchanged. There is a partially imaged right renal cyst, status quo. Bone window technique throughout the exam shows chronic spinal degenerative changes, status quo. Evaluation of the lung gregg shows the nodule seen previously in the right upper lobe to have gotten significantly smaller, today having maximal dimension of 6 mm and having a central air density. The small nodule seen previously in the posterior segment of the right upper lobe has also gotten smaller. There is an additional nodule in the right upper lobe posterior segment which has also gotten smaller. There are bibasilar curvilinear densities consistent with fibrotic and/or subsegmental atelectatic changes, status quo. There are no new abnormal nodules, masses or opacities. The central venous catheter tip is seen at the SVC right atrial junction, unchanged from the prior exam. IMPRESSION: 1. Lung field improvement as described above. 2. Small stable pericardial effusion. 3. Changes involving the imaged upper abdomen as described above. Electronically Signed by Jean Marie Richardson DO 10/26/2018 07:15 P
== END ==
LOC: M RAD 15:18
PROVIDERS: ATTEND Internal Medicine Hematology & Oncology
DX: I31.3 Pericardial effusion (noninflammatory) (principal); C18.9 Malignant neoplasm of colon, unspecified
CPT/HCPCS: 74177; Q9963; Q9967

== ENCOUNTER → 2018-10-26 | Outpatient (CLI) | payer MEDICARE ==
[~2018-10-26] MED LIST changes: +BISO5TAB14 PO; -BISO5TAB9 PO; +CALC200T15 PO; +FAMO20TA PO; +FERR1TAB8 PO; -GASTROGRAFIN SOLUTION 30ML (Q9963) As Ordered ONE; +HM M250T PO; -ISOVUE-370 76% 100ML VIAL (Q9967) As Ordered ONE; -LORA0.5T11 PO; +LORA0.5T5 PO; +MAG400TA PO; +MAGN1INJ2 IV; +MAGN400T2 PO; +MAGN400T3 PO; +MAGN64TASA PO; -OMEP40CA2 PO; +OMEP40CA97 PO; +VITA100066 PO
[2018-10-26 16:03] LABS: BASO % 0.4 % (0.0-1.0); EOS # 0.4 10^3/uL (0.0-0.5); EOS % 4.1 % (0.0-3.0); HEMATOCRIT 35.6 % (36.0-47.0); HEMOGLOBIN 11.1 g/dl (12.0-15.5); LYMPH # 0.9 10^3/uL (1.5-5.0); LYMPH % 9.5 % (24.0-44.0); MEAN CORPUSCULAR HEMOGLOBIN 26.5 pg (27.0-33.0); MEAN CORPUSCULAR HGB CONC 31.2 g/dl (32.0-36.5); MONO # 0.7 10^3/uL (0.0-0.8); MONO % 7.3 % (0.0-5.0); NEUTROPHILS # 7.1 10^3/uL (1.5-8.5); NEUTROPHILS % 78.3 % (36.0-66.0); PLATELET COUNT, AUTOMATED 252 10^3/uL (150-450); RED BLOOD COUNT 4.19 10^6/uL (4.00-5.40); WHITE BLOOD COUNT 9.1 10^3/uL (4.0-10.0)
[2018-10-26 16:56] LABS: ALT/SGPT 16 U/L (12-78); BILIRUBIN,TOTAL 0.4 MG/DL (0.2-1.0); BLOOD UREA NITROGEN 17 MG/DL (7-18); CALCIUM LEVEL 7.7 MG/DL (8.8-10.2); CARBON DIOXIDE LEVEL 27 MEQ/L (21-32); CHLORIDE LEVEL 108 MEQ/L (98-107); GLOMERULAR FILTRATION RATE > 60.0 (>32); GLUCOSE, FASTING 109 MG/DL (70-100); MAGNESIUM LEVEL 0.8 MG/DL (1.8-2.4); POTASSIUM SERUM 3.4 MEQ/L (3.5-5.1); SODIUM LEVEL 143 MEQ/L (136-145); TOTAL PROTEIN 6.7 GM/DL (6.4-8.2)
== END ==
LOC: M LAB 15:42
PROVIDERS: ATTEND Internal Medicine Hematology & Oncology
DX: C18.9 Malignant neoplasm of colon, unspecified (principal)

== ENCOUNTER 2018-11-02 19:42 | Inpatient (IN) | payer MEDICARE ==
[~2018-11-02] VITALS: Ht 157.5 cm; Wt 79.9 kg
[~2018-11-02 19:42] MED LIST changes: -HM M250T PO; -MAGN64TASA PO
[2018-11-02] MEDS ORDERED: HM M250T PO (19:50)
[2018-11-02] MEDS ORDERED: MAGN64TASA PO (19:56)
[2018-11-02] MEDS ORDERED: CALCIUM GLUCONATE 1,000 MG in D5W MINI-BAG PLUS 100 ML IV ONE (20:30)
[2018-11-02] MEDS ORDERED: MAGNESIUM OXIDE 400 MG TAB (MAG-OX) PO ONE (20:45)
[2018-11-02] MEDS ORDERED: MAG SULF 1GM/100ML (MAG RUN) 1 GM in IV 1 EA IV ONE (20:45)
--- NOTE | 2018-11-02 20:52 | ECGEPIP ---
[facility] - ED Test Date: 2018-11-02 Pat Name: NICA ARAUJO Department: Room: - Gender: Female Product Management Specialist: : [id number] Requested By: Larry Marrero Order Number: [id number] Reading MD: Tuyet Jones Measurements Intervals [place] Rate: 55 P: 52 GA: 126 QRS: -42 QRSD: 89 T: 116 QT: 452 QTc: 434 Interpretive Statements SINUS BRADYCARDIA INFERIOR MYOCARDIAL INFARCTION, PROBABLY OLD MODERATE T-WAVE ABNORMALITY, CONSIDER LATERAL ISCHEMIA LOW VOLTAGE DECREASED RATE 07/15/18 Electronically Signed on 11-02-2018 20:51:49 EDT by Tuyet Jones
--- NOTE | 2018-11-02 20:55 | HPEPDOC ---
[facility] Medical History & Physical Date of Admission Nov 02, 2018 Date of Service: Nov 02, 2018 Primary Care Physician: Phillip Herbert MD Attending Physician: ANTWON AVALOS MD History and Physical TIME OF SERVICE: 915PM CHIEF COMPLAINT: sent by Oncologist for management of abnormal labs HISTORY OF PRESENT ILLNESS: This is an 83 yr old F who was sent to the ED by her Oncologist, in [place] who reviews her blood work weekly, for management of acute on chronic hypomagnesemia 2/2 chemo. She was started on PO Mag last week but continues to have low Mag. She admits to having BMs every time she urinates and denies having blood mixed with her stools. She also denies having abdominal pain, denies having fevers, denies having chills, denies loosing weight recently, denies having chest pain, denies having palpitations and denies having muscle aches or pains. She has chronic dyspnea with exertion. According to the patient's daughter her baseline HR is in the 50s. Per d/w she has a hx of hypomagnesemia 2/2 chemo with a baseline mag level around 1.4; 2 weeks ago it dropped to 0.8; despite receiving 2G of IV mag her level dropped to 0.6; he reports that she is asymptomatic and her EKG shows sinus bradycardia w a HR of 58; he is requesting admission for IV infusion of Mag. REVIEW OF SYSTEMS: 12 point review of systems negative except as listed in HPI PAST MEDICAL/ SURGICAL HISTORY: Stage 4 Colorectal Cancer with mets to the lung and liver (BILLY wild type, BRAF neg, MMR Stable) Chronic CAD/ s/p MN Chronic Systolic CHF EF 30-35% / Ischemic Cardiomyopathy / s/p ICD & pacemaker placement s/p hysterectomy s/p cholecystectomy s/p partial colectomy SOCIAL HISTORY: -Tobacco -Alcohol -Drugs FAMILY HISTORY: CAD Cancer (esophageal, pancreatic) ALLERGIES: Please see below. HOME MEDICATIONS: Please see below. PHYSICAL EXAMINATION: VITAL SIGNS: Please see below. GENERAL APPEARANCE: well nourished/ well developed/ NAD HEENT: NCAT / mucus membranes moist and pink CARDIOVASCULAR: sinus bradycardia / pacemaker/ICD palpable at left upper chest / radial pulses intact LUNGS: CTAB on RA ABDOMEN: + BS. soft & NT on palpation MUSCULOSKELETAL: [place] x 4 extremities INTEGUMENT: rash (2/2 chemo per daughter) on BLE NEUROLOGICAL: CN 2-12 grossly intact/ speech not dysarthric PSYCHIATRIC: A&O x3 LABORATORY DATA: See below. IMAGING: n/a MICROBIOLOGY: Please see below. ASSESSMENT: PLAN: Ms. Zendejas is an 83 yr old F w a PMH of Metastatic Stage 4 Colorectal Cancer, Chronic CAD/ s/p MN and Chronic Systolic CHF who will be admitted for management of asymptomatic hypomagnesemia 2/2 chemo. 1.Asymptomatic Hypomagnesemia 2/2 chemo & loose stools Plan: admit to PCU / telemetry/ Mag sulfate 3G IV + mag oxide 800mg PO / f/u repeat Mag in the morning 2.Asymptomatic Hypocalcemia likely 2/2 hypomagnesemia Ca++ 7 & albumin 2.9 / Corrected Ca++ approx 7.8 received IV Ca++ in the ED Plan: replete Mag and f/u lytes in the morning 3. Asymptomatic Sinus Bradycardia likely 2/2 metoprolol (for CHF) Plan: telemetry 4. Metastatic BILLY wild type, BRAF neg, MMR Stable, Stage 4 Colerectal CA Plan: f/u w oncologist in [place] on an out pt basis 5. Chronic CAD/ s/p MN Plan: c/w home meds 6. Chronic Systolic CHF EF 30-35% / Ischemic Cardiomyopathy Plan: c/w home meds 7.Obesity BMI 30.2kg/m2 per pt's daughter she lost 20lbs shortly after being diagnosed w CA but recently her weight has stablized Plan: f/u w PCP for STOP [place] questionnaire, architectural inspector consult to help the patient select nutrient dense foods & to discuss recommendations for cardiovascular exercise DVT Px w apixaban (home med) Dispo: likely home tomorrow once Mag wnl Vital Signs Vital Signs Date Time Temp Pulse Resp B/P (MAP) Pulse Ox O2 Delivery O2 Flow Rate FiO2 11/02/18 20:04 11/02/18 19:42 97.4 59 18 98 Room Air Home Medications Scheduled Apixaban (Eliquis) 2.5 Mg Tab, 2.5 MG PO BID Aspirin (Aspirin EC) 81 Mg Tab, 81 MG PO DAILY Atorvastatin Calcium (Atorvastatin Calcium) 40 Mg Tab, 40 MG PO DAILY Buspirone HCl (Buspirone HCl) 10 Mg Tab, 10 MG PO BID Cholecalciferol (Vitamin D3) (Vitamin D3) 2,000 Unit Cap, 2,000 UNIT PO DAILY Levothyroxine Sodium (Levothyroxine Sodium) 75 Mcg Tab, 75 MCG PO DAILY Losartan Potassium (Losartan Potassium) 25 Mg Tablet, 25 MG PO DAILY Magnesium Chloride (Mag64) 64 Mg Tablet.dr, 64 MG PO BID MORNING AND AROUND 3PM Metoprolol Succinate (Metoprolol Succinate) 25 Mg Tab, 12.5 MG PO BID Omeprazole (Omeprazole) 40 Mg Capsule.dr, 40 MG PO DAILY Panitumumab (Vectibix) 100 Mg/5 Ml Vial, 100 MG IV EVERY TWO WEEKS INFUSION GIVEN IN [place] EVERY OTHER WEDNESDAY Scheduled PRN Lorazepam (Lorazepam) 0.5 Mg Tab, 0.5 MG PO BID PRN for ANXIETY Nitroglycerin (Nitrostat) 0.4 Mg Subl, 0.4 MG SL NITRO PRN for CHEST PAIN Allergies Coded Allergies: albuterol (Verified Allergy, Severe, Shortness of breath, 05/04/18) ipratropium (Verified Allergy, Severe, Shortness of breath, 05/04/18) A-FIB/CHADSVASC A-FIB History Current/History of A-Fib/PAF?: No Current PO Anticoag Therapy: No ANTWON AVALOS MD Nov 02, 2018 20:55
[2018-11-02] MEDS: busPIRone 10 MG TAB PO SCH (21:00)
[2018-11-02] MEDS: METOPROLOL SUCC *XL* 12.5MG PER 1/2 TAB (TopROL *XL*) PO SCH (21:00)
[2018-11-02] MEDS ORDERED: LORazepam 0.5 MG TAB PO PRN (21:15)
[2018-11-02] MEDS ORDERED: NITROGLYCERIN 0.4 MG SUBL TABLET SL PRN (21:15)
[2018-11-03] MEDS: LEVOTHYROXINE 75MCG TABLET (0.075MG) PO SCH (05:50)
[2018-11-03] MEDS: VITAMIN D 1,000 INTERNATIONAL UNITS TABLET PO SCH (08:55)
[2018-11-03] MEDS: ASPIRIN 81 MG ENTERIC TAB PO SCH (08:56)
[2018-11-03] MEDS: APIXABAN 2.5 MG TAB (ELIQUIS) PO SCH ×2 (08:56→20:12)
[2018-11-03] MEDS: ATORVASTATIN 20 MG TAB PO SCH (08:57)
[2018-11-03] MEDS: LOSARTAN 25 MG TAB PO SCH (08:57)
[2018-11-03] MEDS: METOPROLOL SUCC *XL* 12.5MG PER 1/2 TAB (TopROL *XL*) PO SCH ×2 (08:58→20:13)
[2018-11-03] MEDS: busPIRone 10 MG TAB PO SCH ×2 (08:58→20:13)
[2018-11-03 08:59] LABS: HEMATOCRIT 30.7 % (36.0-47.0); HEMOGLOBIN 9.6 g/dl (12.0-15.5); MEAN CORPUSCULAR HGB CONC 31.3 g/dl (32.0-36.5); MEAN CORPUSCULAR VOLUME 83.2 fl (80.0-96.0); PLATELET COUNT, AUTOMATED 168 10^3/uL (150-450); RED BLOOD COUNT 3.69 10^6/uL (4.00-5.40); WHITE BLOOD COUNT 5.2 10^3/uL (4.0-10.0)
[2018-11-03] MEDS: MAGNESIUM CHLORIDE 64 MG TABCR (SLO MAG) PO SCH ×2 (08:59→14:42)
[2018-11-03] MEDS ORDERED: PANTOPRAZOLE 40MG TAB (PROTONIX) PO ONE (09:00)
[2018-11-03 09:21] LABS: BLOOD UREA NITROGEN 8 MG/DL (7-18); CALCIUM LEVEL 7.3 MG/DL (8.8-10.2); CARBON DIOXIDE LEVEL 26 MEQ/L (21-32); CHLORIDE LEVEL 116 MEQ/L (98-107); CREATININE FOR GFR 0.62 MG/DL (0.55-1.30); GLOMERULAR FILTRATION RATE > 60.0 (>32); GLUCOSE, FASTING 83 MG/DL (70-100); MAGNESIUM LEVEL 1.2 MG/DL (1.8-2.4); POTASSIUM SERUM 3.7 MEQ/L (3.5-5.1); SODIUM LEVEL 147 MEQ/L (136-145)
[2018-11-03 13:00] VITALS: BP 170/78
[2018-11-03] MEDS ORDERED: MAG SULF 1GM/100ML (MAG RUN) 1 GM in IV 1 EA IV ONE ×3 (13:00)
--- NOTE | 2018-11-03 13:21 | IPN ---
DATE OF SERVICE: 11/03/2018 Jennie is seen in an interim bed in the ER, admitted with hypomagnesemia and hypocalcemia. She has severe watery diarrhea from her chemotherapy. She denies chest pain, shortness of breath, muscle spasms or tetany palpitations. Physical Exam: Afebrile. Vital signs stable. Alert, conversant, in no distress. Lungs clear. Heart regular rhythm. Abdomen soft, nontender. No peripheral edema. Neuromuscular exam unremarkable. Labs: CBC unchanged. Calcium 7.3 (corrects to 8.2 for a low albumin). Magnesium 1.2. Impression: 1. Hypomagnesemia. Supplemental magnesium has been given. 2. Hypocalcemia. Supplemental calcium gluconate has been given. 3. Intractable diarrhea. Will check a GI panel. 4. Metastatic colon cancer. Per patient, most recent imaging has shown regression of her metastatic tumor at the liver as well as other metastatic lesions on her current regimen. 5. Congestive heart failure with reduced ejection fraction of 30-35%. Compensated on exam. 6. Persistent diarrhea. Probably from her chemotherapy. Will check a GI panel.
[2018-11-03] MEDS ORDERED: CALCIUM GLUCONATE 1,000 MG in D5W MINI-BAG PLUS 100 ML IV ONE (14:00)
[2018-11-03 16:00] VITALS: BP 134/60
[2018-11-03 20:00] VITALS: BP 132/71
[2018-11-03 23:59] VITALS: BP 132/66
[2018-11-04 04:00] VITALS: BP 130/68
[2018-11-04] MEDS: LEVOTHYROXINE 75MCG TABLET (0.075MG) PO SCH (05:22)
[2018-11-04 05:47] LABS: HEMATOCRIT 28.4 % (36.0-47.0); HEMOGLOBIN 8.8 g/dl (12.0-15.5); MEAN CORPUSCULAR HEMOGLOBIN 25.7 pg (27.0-33.0); PLATELET COUNT, AUTOMATED 177 10^3/uL (150-450); RED BLOOD COUNT 3.42 10^6/uL (4.00-5.40); WHITE BLOOD COUNT 5.5 10^3/uL (4.0-10.0)
[2018-11-04 06:04] LABS: ALBUMIN 2.3 GM/DL (3.2-5.2); BLOOD UREA NITROGEN 8 MG/DL (7-18); CALCIUM LEVEL 7.6 MG/DL (8.8-10.2); CARBON DIOXIDE LEVEL 26 MEQ/L (21-32); CHLORIDE LEVEL 115 MEQ/L (98-107); CREATININE FOR GFR 0.52 MG/DL (0.55-1.30); GLOMERULAR FILTRATION RATE > 60.0 (>32); GLUCOSE, FASTING 105 MG/DL (70-100); MAGNESIUM LEVEL 1.1 MG/DL (1.8-2.4); POTASSIUM SERUM 3.8 MEQ/L (3.5-5.1); SODIUM LEVEL 146 MEQ/L (136-145)
[2018-11-04] MEDS ORDERED: MAG SULF 1GM/100ML (MAG RUN) 2 GM in IV 1 EA IV ONE ×2 (07:45→08:00)
[2018-11-04] MEDS: MAG SULF 1GM/100ML (MAG RUN) X 2 DOSES (2GM TOTAL) IV SCH ×4 (08:06→09:23)
[2018-11-04 08:12] VITALS: BP 160/80
[2018-11-04] MEDS: METOPROLOL SUCC *XL* 12.5MG PER 1/2 TAB (TopROL *XL*) PO SCH ×2 (08:27→20:08)
[2018-11-04] MEDS: ATORVASTATIN 20 MG TAB PO SCH (08:30)
[2018-11-04] MEDS: ASPIRIN 81 MG ENTERIC TAB PO SCH (08:30)
[2018-11-04] MEDS: busPIRone 10 MG TAB PO SCH ×2 (08:30→20:07)
[2018-11-04] MEDS: MAGNESIUM CHLORIDE 64 MG TABCR (SLO MAG) PO SCH ×2 (08:30→14:29)
[2018-11-04] MEDS: LOSARTAN 25 MG TAB PO SCH (08:30)
[2018-11-04] MEDS: APIXABAN 2.5 MG TAB (ELIQUIS) PO SCH ×2 (08:30→20:08)
[2018-11-04] MEDS: VITAMIN D 1,000 INTERNATIONAL UNITS TABLET PO SCH (08:30)
[2018-11-04 12:00] VITALS: BP 161/70
[2018-11-04] MEDS: SLF 3 ML SYR IV SCH ×2 (13:30→20:08)
[2018-11-04] MEDS ORDERED: SLF 3 ML SYR IV PRN (13:30)
[2018-11-04 16:00] VITALS: BP 153/67
[2018-11-04 20:00] VITALS: BP 140/74
[2018-11-04 23:59] VITALS: BP 116/62
[2018-11-05 04:00] VITALS: BP 124/72
[2018-11-05] MEDS: LEVOTHYROXINE 75MCG TABLET (0.075MG) PO SCH (05:45)
[2018-11-05] MEDS: SLF 3 ML SYR IV SCH ×3 (05:45→20:48)
[2018-11-05 06:02] LABS: HEMOGLOBIN 9.5 g/dl (12.0-15.5); MEAN CORPUSCULAR HEMOGLOBIN 26.2 pg (27.0-33.0); MEAN CORPUSCULAR HGB CONC 30.6 g/dl (32.0-36.5); MEAN CORPUSCULAR VOLUME 85.6 fl (80.0-96.0); PLATELET COUNT, AUTOMATED 173 10^3/uL (150-450); RED BLOOD COUNT 3.62 10^6/uL (4.00-5.40); WHITE BLOOD COUNT 5.3 10^3/uL (4.0-10.0)
[2018-11-05 06:26] LABS: ALBUMIN 2.3 GM/DL (3.2-5.2); BLOOD UREA NITROGEN 9 MG/DL (7-18); CALCIUM LEVEL 7.9 MG/DL (8.8-10.2); CARBON DIOXIDE LEVEL 29 MEQ/L (21-32); CHLORIDE LEVEL 111 MEQ/L (98-107); CREATININE FOR GFR 0.66 MG/DL (0.55-1.30); GLOMERULAR FILTRATION RATE > 60.0 (>32); GLUCOSE, FASTING 94 MG/DL (70-100); MAGNESIUM LEVEL 1.1 MG/DL (1.8-2.4); PHOSPHORUS LEVEL 3.1 MG/DL (2.5-4.9); POTASSIUM SERUM 4.2 MEQ/L (3.5-5.1); SODIUM LEVEL 147 MEQ/L (136-145)
[2018-11-05] MEDS: MAG SULF 1GM/100ML (MAG RUN) 1 GM in IV 1 EA IV SCH ×3 (07:00→08:28)
[2018-11-05 08:00] VITALS: BP 166/74
[2018-11-05] MEDS: LOSARTAN 25 MG TAB PO SCH (08:24)
[2018-11-05] MEDS: ATORVASTATIN 20 MG TAB PO SCH (08:24)
[2018-11-05] MEDS: ASPIRIN 81 MG ENTERIC TAB PO SCH (08:25)
[2018-11-05] MEDS: VITAMIN D 1,000 INTERNATIONAL UNITS TABLET PO SCH (08:25)
[2018-11-05] MEDS: busPIRone 10 MG TAB PO SCH ×2 (08:25→21:00)
[2018-11-05] MEDS: METOPROLOL SUCC *XL* 12.5MG PER 1/2 TAB (TopROL *XL*) PO SCH ×2 (08:25→21:00)
[2018-11-05] MEDS: APIXABAN 2.5 MG TAB (ELIQUIS) PO SCH ×2 (08:26→21:00)
[2018-11-05] MEDS ORDERED: MAGNESIUM CHLORIDE 64 MG TABCR (SLO MAG) PO SCH (09:00)
[2018-11-05 12:00] VITALS: BP 124/74
--- NOTE | 2018-11-05 12:02 | IPNPDOC ---
Subjective Date Seen The patient was seen on 11/05/18. Subjective Chief Complaint/HPI patient s palpitations, muscle cramping Constitutional: Denies: Chills Eyes: Denies: Pain ENT: Denies: Head Aches, Ear Pain Skin: Denies: Rash Pulmonary: Denies: Dyspnea Cardiovascular: Denies: Chest Pain, Palpitations Assessment /Plan Plan/VTE VTE Prophylaxis Ordered?: Yes VS, I&O, 24H, Fishbone Vital Signs/I&O Vital Signs Date Time Temp Pulse Resp B/P (MAP) Pulse Ox O2 Delivery O2 Flow Rate FiO2 11/05/18 08:25 59 166/74 11/05/18 08:00 96.9 17 97 11/03/18 12:41 Room Air I&O- Last 24 Hours up to 6 AM 11/05/18 06:00 Intake Total 1000 ml Output Total 1450 ml Balance -450 ml Laboratory Data 24H LABS Laboratory Tests 2 11/05/18 05:46: Nucleated Red Blood Cells % (auto) 0.0, Blood Urea Nitrogen 9, Creatinine 0.66, Sodium Level 147H, Potassium Level 4.2, Chloride Level 111H, Carbon Dioxide Level 29, Anion Gap 7L, Glomerular Filtration Rate > 60.0, Calcium Level 7.9L, Phosphorus Level 3.1, Magnesium Level 1.1L, Albumin 2.3L CBC/BMP Laboratory Tests 11/05/18 05:46 Red Blood Count 3.62 L, Mean Corpuscular Volume 85.6, Mean Corpuscular Hemoglobin 26.2 L, Mean Corpuscular Hemoglobin Concent 30.6 L, Red Cell Distribution Width 16.6 H, Anion Gap 7 L Microbiology Microbiology 11/03/18 Gastrointestinal Tract Panel (PCR) - Final, Complete Ramakrishna Wood M.D. Nov 05, 2018 12:02
--- NOTE | 2018-11-05 12:29 | IPNPDOC ---
Subjective Date Seen The patient was seen on 11/05/18. Subjective Chief Complaint/HPI patient s muscle cramping Constitutional: Denies: Chills Eyes: Denies: Pain ENT: Denies: Head Aches Skin: Denies: Rash, Lesions Gastrointestinal: Reports: Diarrhea; Denies: Nausea, Vomiting Genitourinary: Denies: Dysuria, Frequency Assessment /Plan Problems (1) Hypomagnesemia Status: Acute Problem Text: asx, favor 2 GI loss given chronic diarrhea 11/05 1.1 (11/04 1.1), given unable to obtain ANY peripheral access, changed to po MgCl 192 TID c loperamide load and prn diarrhea(HD 64 BID) c planned recheck in AM (2) Atrial fibrillation Status: Chronic Problem Text: met tar for RC apix for AC (3) Diarrhea Problem Text: as per hypoMg (4) Anemia of chronic disease Status: Chronic Problem Text: hgb at baseline 9s Plan/VTE VTE Prophylaxis Ordered?: Yes VS, I&O, 24H, Fishbone Vital Signs/I&O Vital Signs Date Time Temp Pulse Resp B/P (MAP) Pulse Ox O2 Delivery O2 Flow Rate FiO2 11/05/18 08:25 59 166/74 11/05/18 08:00 96.9 17 97 11/03/18 12:41 Room Air I&O- Last 24 Hours up to 6 AM 11/05/18 05:59 Intake Total 1000 ml Output Total 1450 ml Balance -450 ml Laboratory Data 24H LABS Laboratory Tests 2 11/05/18 05:46: Nucleated Red Blood Cells % (auto) 0.0, Blood Urea Nitrogen 9, Creatinine 0.66, Sodium Level 147H, Potassium Level 4.2, Chloride Level 111H, Carbon Dioxide Level 29, Anion Gap 7L, Glomerular Filtration Rate > 60.0, Calcium Level 7.9L, Phosphorus Level 3.1, Magnesium Level 1.1L, Albumin 2.3L CBC/BMP Laboratory Tests 11/05/18 05:46 Red Blood Count 3.62 L, Mean Corpuscular Volume 85.6, Mean Corpuscular Hemoglobin 26.2 L, Mean Corpuscular Hemoglobin Concent 30.6 L, Red Cell Distribution Width 16.6 H, Anion Gap 7 L Microbiology Microbiology 11/03/18 Gastrointestinal Tract Panel (PCR) - Final, Complete Ramakrishna Wood M.D. Nov 05, 2018 12:29
[2018-11-05] MEDS ORDERED: LOPERAMIDE 2 MG CAP PO PRN (12:30)
[2018-11-05] MEDS ORDERED: LOPERAMIDE 2 MG CAP PO ONE (13:00)
[2018-11-05 16:00] VITALS: BP 168/72
[2018-11-05] MEDS: MAGNESIUM CHLORIDE 64 MG TABCR (SLO MAG) PO SCH ×2 (16:27→21:01)
[2018-11-05 20:00] VITALS: BP 137/73
[2018-11-05] MEDS: NYSTATIN 100,000 UNITS/GM TOPICAL PWD 15 GM TOP SCH (21:01)
[2018-11-06] VITALS: BP 137/65
[2018-11-06 04:00] VITALS: BP 130/61
[2018-11-06] MEDS: SLF 3 ML SYR IV SCH ×3 (05:37→20:41)
[2018-11-06] MEDS: LEVOTHYROXINE 75MCG TABLET (0.075MG) PO SCH (05:37)
[2018-11-06 07:15] LABS: ALBUMIN 2.5 GM/DL (3.2-5.2); BLOOD UREA NITROGEN 9 MG/DL (7-18); CALCIUM LEVEL 7.8 MG/DL (8.8-10.2); CARBON DIOXIDE LEVEL 27 MEQ/L (21-32); CHLORIDE LEVEL 113 MEQ/L (98-107); CREATININE FOR GFR 0.61 MG/DL (0.55-1.30); GLOMERULAR FILTRATION RATE > 60.0 (>32); GLUCOSE, FASTING 82 MG/DL (70-100); MAGNESIUM LEVEL 0.7 MG/DL (1.8-2.4); PHOSPHORUS LEVEL 3.6 MG/DL (2.5-4.9); POTASSIUM SERUM 3.7 MEQ/L (3.5-5.1); SODIUM LEVEL 146 MEQ/L (136-145)
[2018-11-06 08:00] VITALS: BP 118/80
[2018-11-06] MEDS: MAG SULF 1GM/100ML (MAG RUN) 1 GM in IV 1 EA IV SCH ×4 (08:50→19:30)
[2018-11-06] MEDS: ASPIRIN 81 MG ENTERIC TAB PO SCH (08:50)
[2018-11-06] MEDS: ATORVASTATIN 20 MG TAB PO SCH (08:51)
[2018-11-06] MEDS: APIXABAN 2.5 MG TAB (ELIQUIS) PO SCH ×2 (08:51→20:41)
[2018-11-06] MEDS: busPIRone 10 MG TAB PO SCH ×2 (08:51→20:40)
[2018-11-06] MEDS: METOPROLOL SUCC *XL* 12.5MG PER 1/2 TAB (TopROL *XL*) PO SCH ×2 (08:51→20:41)
[2018-11-06] MEDS: VITAMIN D 1,000 INTERNATIONAL UNITS TABLET PO SCH (08:51)
[2018-11-06] MEDS: MAGNESIUM CHLORIDE 64 MG TABCR (SLO MAG) PO SCH ×3 (08:52→20:40)
[2018-11-06] MEDS: NYSTATIN 100,000 UNITS/GM TOPICAL PWD 15 GM TOP SCH ×2 (08:52→20:40)
[2018-11-06] MEDS: LOSARTAN 25 MG TAB PO SCH (08:52)
[2018-11-06 12:00] VITALS: BP 128/70
--- NOTE | 2018-11-06 14:53 | IPNPDOC ---
Subjective Date Seen The patient was seen on 11/06/18. Subjective Chief Complaint/HPI no diarrhea Constitutional: Denies: Chills Eyes: Denies: Pain ENT: Denies: Ear Pain Skin: Denies: Rash, Lesions Pulmonary: Denies: Dyspnea Cardiovascular: Denies: Chest Pain, Palpitations Gastrointestinal: Denies: Nausea, Vomiting Objective Physical Examination General Exam: Positive: Alert Eye Exam: Positive: PERRLA ENT Exam: Positive: Atraumatic Neck Exam: Negative: JVD Chest Exam: Positive: Clear to auscultation Heart Exam: Positive: Rate Normal Telemetry: Positive: No significant arrhythmia Abdomen Exam: Positive: Normal bowel sounds Extremity Exam: Negative: Edema Skin Exam: Negative: Rash Neuro Exam: Positive: Normal Gait Psych Exam: Positive: Mental status NL Assessment /Plan Problems (1) Hypomagnesemia Status: Acute Problem Text: asx, favor 2 renal loss 2 panitumumab (EGFRi) and GI loss given chronic diarrhea given ischemic CMP, favor correct before dc to avoid arrhthymiae 11/06 0.7 (K 3.7) despite NO diarrhea and only 1 dose loperamide 4 po administered 11/05 ; therefore, was able to obtain IV access and + Mg 2 gm IV, increased to 192 TID; up to 1.3; therefore, repeat Mg 2 gm IV to replete Mg stores 11/05 1.1 (11/04 1.1), given unable to obtain ANY peripheral access, changed to po MgCl 192 TID c loperamide load and prn diarrhea(HD 64 BID) c planned recheck in AM (2) Atrial fibrillation Status: Chronic Problem Text: met tar for RC apix for AC (3) Diarrhea Problem Text: as per hypoMg (4) Anemia of chronic disease Status: Chronic Problem Text: hgb at baseline 9s (5) Ischemic cardiomyopathy Status: Chronic Response to Treatment: Stable Plan/VTE VTE Prophylaxis Ordered?: Yes VS, I&O, 24H, Fishbone Vital Signs/I&O Vital Signs Date Time Temp Pulse Resp B/P (MAP) Pulse Ox O2 Delivery O2 Flow Rate FiO2 11/06/18 12:00 96.9 62 15 128/70 (89) 97 11/03/18 12:41 Room Air I&O- Last 24 Hours up to 6 AM 11/06/18 06:00 Intake Total 840 ml Output Total 1350 ml Balance -510 ml Laboratory Data 24H LABS Laboratory Tests 2 11/06/18 05:36: Blood Urea Nitrogen 9, Creatinine 0.61, Sodium Level 146H, Potassium Level 3.7, Chloride Level 113H, Carbon Dioxide Level 27, Anion Gap 6L, Glomerular Filtration Rate > 60.0, Calcium Level 7.8L, Phosphorus Level 3.6, Magnesium Level 0.7*L, Albumin 2.5L CBC/BMP Laboratory Tests 11/06/18 05:36 Anion Gap 6 L Microbiology Microbiology 11/03/18 Gastrointestinal Tract Panel (PCR) - Final, Complete Ramakrishna Wood M.D. Nov 06, 2018 14:53
[2018-11-06 16:27] LABS: ALBUMIN 2.7 GM/DL (3.2-5.2); BLOOD UREA NITROGEN 11 MG/DL (7-18); CALCIUM LEVEL 7.8 MG/DL (8.8-10.2); CARBON DIOXIDE LEVEL 27 MEQ/L (21-32); CHLORIDE LEVEL 112 MEQ/L (98-107); CREATININE FOR GFR 0.72 MG/DL (0.55-1.30); GLOMERULAR FILTRATION RATE > 60.0 (>32); GLUCOSE, FASTING 122 MG/DL (70-100); MAGNESIUM LEVEL 1.3 MG/DL (1.8-2.4); PHOSPHORUS LEVEL 3.2 MG/DL (2.5-4.9); POTASSIUM SERUM 4.2 MEQ/L (3.5-5.1); SODIUM LEVEL 145 MEQ/L (136-145)
[2018-11-06 20:15] VITALS: BP 160/94
[2018-11-06 23:59] VITALS: BP 135/65
[2018-11-07 04:00] VITALS: BP 155/72
[2018-11-07] MEDS: LEVOTHYROXINE 75MCG TABLET (0.075MG) PO SCH (05:59)
[2018-11-07] MEDS: SLF 3 ML SYR IV SCH ×2 (05:59→13:23)
[2018-11-07 06:15] LABS: ALBUMIN 2.4 GM/DL (3.2-5.2); BLOOD UREA NITROGEN 10 MG/DL (7-18); CALCIUM LEVEL 8.2 MG/DL (8.8-10.2); CARBON DIOXIDE LEVEL 24 MEQ/L (21-32); CHLORIDE LEVEL 112 MEQ/L (98-107); GLOMERULAR FILTRATION RATE > 60.0 (>32); GLUCOSE, FASTING 97 MG/DL (70-100); MAGNESIUM LEVEL 1.5 MG/DL (1.8-2.4); PHOSPHORUS LEVEL 3.4 MG/DL (2.5-4.9); POTASSIUM SERUM 4.2 MEQ/L (3.5-5.1); SODIUM LEVEL 144 MEQ/L (136-145)
[2018-11-07 08:00] VITALS: BP 156/60
[2018-11-07] MEDS: MAG SULF 1GM/100ML (MAG RUN) 1 GM in IV 1 EA IV SCH ×2 (08:13→09:37)
[2018-11-07] MEDS: ATORVASTATIN 20 MG TAB PO SCH (08:14)
[2018-11-07] MEDS: APIXABAN 2.5 MG TAB (ELIQUIS) PO SCH (08:14)
[2018-11-07] MEDS: VITAMIN D 1,000 INTERNATIONAL UNITS TABLET PO SCH (08:14)
[2018-11-07] MEDS: busPIRone 10 MG TAB PO SCH (08:14)
[2018-11-07] MEDS: MAGNESIUM CHLORIDE 64 MG TABCR (SLO MAG) PO SCH ×2 (08:14→15:36)
[2018-11-07] MEDS: ASPIRIN 81 MG ENTERIC TAB PO SCH (08:14)
[2018-11-07 08:15] VITALS: BP 156/60
[2018-11-07] MEDS: METOPROLOL SUCC *XL* 12.5MG PER 1/2 TAB (TopROL *XL*) PO SCH (08:15)
[2018-11-07] MEDS: NYSTATIN 100,000 UNITS/GM TOPICAL PWD 15 GM TOP SCH (08:15)
[2018-11-07] MEDS: LOSARTAN 25 MG TAB PO SCH (08:15)
--- NOTE | 2018-11-07 10:25 | IPNPDOC ---
Subjective Date Seen The patient was seen on 11/07/18. Subjective Chief Complaint/HPI hypomag Events since last encounter denies c/o. Magnesium slowly improving. tele unremarkable. Denies diarrhea. Constitutional: Denies: Chills, Fever, Night Sweats Skin: Denies: Rash, Lesions, Breakdown Pulmonary: Denies: Dyspnea, Cough Cardiovascular: Denies: Chest Pain, Palpitations, Orthopnea, Paroxysmal Noc. Dyspnea, Lt Headedness Gastrointestinal: Denies: Nausea, Vomiting, Abdominal Pain, Diarrhea, Constipat ion Genitourinary: Denies: Dysuria, Frequency, Incontinence, Retention Objective Physical Examination General Exam: Positive: Alert Eye Exam: Positive: PERRLA ENT Exam: Positive: Atraumatic Neck Exam: Negative: JVD Chest Exam: Positive: Clear to auscultation Heart Exam: Positive: Rate Normal Telemetry: Positive: No significant arrhythmia Abdomen Exam: Positive: Normal bowel sounds Extremity Exam: Negative: Edema Skin Exam: Negative: Rash Neuro Exam: Positive: Normal Gait Psych Exam: Positive: Mental status NL Assessment /Plan Problems (1) Hypomagnesemia Status: Acute Problem Text: asx, favor 2 renal loss 2 panitumumab (EGFRi) and GI loss given chronic diarrhea given ischemic CMP, favor correct before dc to avoid arrhthymiae 11/07/18: slow improvement. Mag run x 2 today then repeat levels at 1400. if stable consider DC home today/tomorrow. 11/06 0.7 (K 3.7) despite NO diarrhea and only 1 dose loperamide 4 po administered 11/05 ; therefore, was able to obtain IV access and + Mg 2 gm IV, increased to 192 TID; up to 1.3; therefore, repeat Mg 2 gm IV to replete Mg stores 11/05 1.1 (11/04 1.1), given unable to obtain ANY peripheral access, changed to po MgCl 192 TID c loperamide load and prn diarrhea(HD 64 BID) c planned recheck in AM (2) Atrial fibrillation Status: Chronic Problem Text: met tar for RC apix for AC (3) Diarrhea Problem Text: as per hypoMg (4) Anemia of chronic disease Status: Chronic Problem Text: hgb at baseline 9s (5) Ischemic cardiomyopathy Status: Chronic Response to Treatment: Stable Plan/VTE VTE Prophylaxis Ordered?: Yes VS, I&O, 24H, Fishbone Vital Signs/I&O Vital Signs Date Time Temp Pulse Resp B/P (MAP) Pulse Ox O2 Delivery O2 Flow Rate FiO2 11/07/18 08:15 85 156/60 11/07/18 08:00 97.3 18 95 11/03/18 12:41 Room Air I&O- Last 24 Hours up to 6 AM 11/07/18 05:59 Intake Total 1080 ml Output Total 1850 ml Balance -770 ml Laboratory Data 24H LABS Laboratory Tests 2 11/06/18 15:44: Blood Urea Nitrogen 11, Creatinine 0.72, Sodium Level 145, Potassium Level 4.2, Chloride Level 112H, Carbon Dioxide Level 27, Anion Gap 6L, Glomerular Filtration Rate > 60.0, Calcium Level 7.8L, Phosphorus Level 3.2, Magnesium Level 1.3L, Albumin 2.7L 11/07/18 05:44: Blood Urea Nitrogen 10, Creatinine 0.60, Sodium Level 144, Potassium Level 4.2, Chloride Level 112H, Carbon Dioxide Level 24, Anion Gap 8, Glomerular Filtration Rate > 60.0, Calcium Level 8.2L, Phosphorus Level 3.4, Magnesium Level 1.5L, Albumin 2.4L CBC/BMP Laboratory Tests 11/06/18 15:44 Anion Gap 6 L 11/07/18 05:44 Anion Gap 8 Microbiology Microbiology 11/03/18 Gastrointestinal Tract Panel (PCR) - Final, Complete Franchesca John [address] ATTENDANT Nov 07, 2018 10:25
[2018-11-07 12:00] VITALS: BP 123/60
--- NOTE | 2018-11-07 15:54 | DS.PDOC ---
Discharge Summary General Date of Admission Nov 04, 2018 at 15:36 Date of Discharge 11/07/18 Primary Care Physician: Phillip Herbert MD Attending Physician: Mayo Rivers MD Discharge Summary ADMITTING DIAGNOSES: 1. Asymptomatic hypomagnesemia. 2. Asymptomatic hypocalcemia. 3. Asymptomatic sinus bradycardia. 4. Stage IV colorectal cancer, metastatic BILLY wild type, negative BRAF, MMR stable. 5. Chronic CAD, status post AL. 6. Chronic systolic congestive heart failure with ischemic cardiomyopathy. 7. Obesity. DISCHARGE DIAGNOSES: 1. Persistent hypomagnesemia, finally resolved, felt to be secondary to panitumumab (an EGFRi). 2. Atrial fibrillation. 3. Diarrhea, in part related to magnesium. 4. Anemia of chronic disease. 5. Ischemic cardiomyopathy. PROCEDURES PERFORMED DURING STAY: None. ADMISSION HISTORY: Ms. Zendejas was sent to the ED by her Oncologist, in [place] who reviews her blood work weekly, for management of acute on chronic hypomagnesemia 2/2 chemo. Please see the admission history and physical for the remaining details. HOSPITAL COURSE: Ms. Zendejas was admitted with electrolyte abnormalities including a persistent hypomagnesemia. This is thought to be related to her panitumumab and her oncologist is reportedly checking electrolyte levels frequently and giving her IV magnesium repletion weekly already. Her oral magnesium was increased, but she began having more diarrhea probably related to the bowel cathartic effects of that much magnesium. She was given one dose of loperamide and this seemed to halt her diarrhea. In the mean time she continued to receive daily IV repletion until her total body magnesium deficit was resolved. DISCHARGE CONDITION: Stable. FOLLOW-UP: Prior to discharge an appointment was scheduled with the [facility] within 1 week. DIET: Magnesium reached diet. ACTIVITY: As tolerated. DISCHARGE MEDICATIONS: Please see below. ALLERGIES: Please see below. LABORATORY DATA: Please see below. IMAGING: CT of the abdomen and pelvis. DISCHARGE INSTRUCTIONS: 1. Get the blood work for your oncologist done in 2 days as routinely scheduled. 2. Follow-up with your oncologist as scheduled in 4 days. Vital Signs/I&Os Vital Signs Date Time Temp Pulse Resp B/P (MAP) Pulse Ox O2 Delivery O2 Flow Rate FiO2 11/07/18 12:00 96.5 62 18 123/60 (81) 97 11/03/18 12:41 Room Air I&O- Last 24 Hours up to 6 AM 11/07/18 06:00 Intake Total 1320 ml Output Total 2050 ml Balance -730 ml Laboratory Data Labs 24H Laboratory Tests 2 11/07/18 05:44: Blood Urea Nitrogen 10, Creatinine 0.60, Sodium Level 144, Potassium Level 4.2, Chloride Level 112H, Carbon Dioxide Level 24, Anion Gap 8, Glomerular Filtration Rate > 60.0, Calcium Level 8.2L, Phosphorus Level 3.4, Magnesium Level 1.5L, Albumin 2.4L 11/07/18 14:34: Magnesium Level 1.9 CBC/BMP Laboratory Tests 11/07/18 05:44 Anion Gap 8 Microbiology Microbiology 11/03/18 Gastrointestinal Tract Panel (PCR) - Final, Complete Discharge Medications Scheduled Apixaban (Eliquis) 2.5 Mg Tab, 2.5 MG PO BID, (Reported) Aspirin (Aspirin EC) 81 Mg Tab, 81 MG PO DAILY, (Reported) Atorvastatin Calcium (Atorvastatin Calcium) 40 Mg Tab, 40 MG PO DAILY, (Reported) Buspirone HCl (Buspirone HCl) 10 Mg Tab, 10 MG PO BID, (Reported) Cholecalciferol (Vitamin D3) (Vitamin D3) 2,000 Unit Cap, 2,000 UNIT PO DAILY, (Reported) Levothyroxine Sodium (Levothyroxine Sodium) 75 Mcg Tab, 75 MCG PO DAILY, (Reported) Losartan Potassium (Losartan Potassium) 25 Mg Tablet, 25 MG PO DAILY, (Reported) Magnesium Chloride (Mag64) 64 Mg Tablet.dr, 64 MG PO BID, (Reported) MORNING AND AROUND 3PM Metoprolol Succinate (Metoprolol Succinate) 25 Mg Tab, 12.5 MG PO BID, (Reported) Omeprazole (Omeprazole) 40 Mg Capsule.dr, 40 MG PO DAILY, (Reported) Panitumumab (Vectibix) 100 Mg/5 Ml Vial, 100 MG IV EVERY TWO WEEKS, (Reported) INFUSION GIVEN IN [place] EVERY OTHER WEDNESDAY Scheduled PRN Lorazepam (Lorazepam) 0.5 Mg Tab, 0.5 MG PO BID PRN for ANXIETY, (Reported) Nitroglycerin (Nitrostat) 0.4 Mg Subl, 0.4 MG SL NITRO PRN for CHEST PAIN, (Reported) Allergies Coded Allergies: albuterol (Verified Allergy, Severe, Shortness of breath, 05/04/18) ipratropium (Verified Allergy, Severe, Shortness of breath, 05/04/18) Mayo Rivers MD Nov 07, 2018 15:54
[2018-11-07 16:00] VITALS: BP 150/69
== END 2018-11-07 17:11 | disposition home or self-care (01) | DRG 641 ==
LOC: M ED 19:42 → M ED INP 19:43 → M PCU 11-03 13:00 → OBSVTOIN 11-04 15:36
PROVIDERS: ADMIT Internal Medicine; ATTEND Family Medicine
DX: E83.42 Hypomagnesemia (principal); C18.9 Malignant neoplasm of colon, unspecified; C78.00 Secondary malignant neoplasm of unspecified lung; C78.7 Secondary malignant neoplasm of liver and intrahepatic bile duct; I50.22 Chronic systolic (congestive) heart failure; K52.1 Toxic gastroenteritis and colitis; T45.1X5A Adverse effect of antineoplastic and immunosuppressive drugs, initial encounter; I25.10 Atherosclerotic heart disease of native coronary artery without angina pectoris; I25.2 Old myocardial infarction; I25.5 Ischemic cardiomyopathy; I48.2 Chronic atrial fibrillation; T47.1X5A Adverse effect of other antacids and anti-gastric-secretion drugs, initial encounter; R21 Rash and other nonspecific skin eruption; E83.51 Hypocalcemia; D63.8 Anemia in other chronic diseases classified elsewhere; R00.1 Bradycardia, unspecified; E66.9 Obesity, unspecified; Z90.710 Acquired absence of both cervix and uterus; Z68.30 Body mass index [BMI] 30.0-30.9, adult; Z90.49 Acquired absence of other specified parts of digestive tract; Z79.01 Long term (current) use of anticoagulants; Z95.810 Presence of automatic (implantable) cardiac defibrillator; Z79.82 Long term (current) use of aspirin; Z79.899 Other long term (current) drug therapy; Z88.8 Allergy status to other drugs, medicaments and biological substances

== ENCOUNTER → 2018-11-02 | Outpatient (CLI) | payer MEDICARE ==
[~2018-11-02] MED LIST changes: -BISO5TAB14 PO; +BISO5TAB9 PO; -CALC200T15 PO; -FAMO20TA PO; -FERR1TAB8 PO; +LORA0.5T11 PO; -LORA0.5T5 PO; -MAG400TA PO; -MAGN1INJ2 IV; -MAGN400T2 PO; -MAGN400T3 PO; +OMEP40CA2 PO; -OMEP40CA97 PO; -VITA100066 PO
[2018-11-02 18:37] LABS: ALBUMIN 2.9 GM/DL (3.2-5.2); ALT/SGPT 12 U/L (12-78); BILIRUBIN,TOTAL 0.3 MG/DL (0.2-1.0); BLOOD UREA NITROGEN 10 MG/DL (7-18); CARBON DIOXIDE LEVEL 25 MEQ/L (21-32); CHLORIDE LEVEL 112 MEQ/L (98-107); CREATININE FOR GFR 0.64 MG/DL (0.55-1.30); GLOMERULAR FILTRATION RATE > 60.0 (>32); GLUCOSE, FASTING 72 MG/DL (70-100); MAGNESIUM LEVEL 0.6 MG/DL (1.8-2.4); POTASSIUM SERUM 3.7 MEQ/L (3.5-5.1); SODIUM LEVEL 147 MEQ/L (136-145)
== END ==
LOC: M LAB 16:36
PROVIDERS: ATTEND Internal Medicine Hematology & Oncology
DX: C18.9 Malignant neoplasm of colon, unspecified (principal)

== ENCOUNTER → 2018-11-09 | Outpatient (CLI) | payer MEDICARE ==
[~2018-11-09] MED LIST changes: +HM M250T PO; +MAGN64TASA PO
[2018-11-09 16:56] LABS: BASO # 0.1 10^3/uL (0.0-0.2); BASO % 0.7 % (0.0-1.0); EOS # 0.4 10^3/uL (0.0-0.5); EOS % 5.3 % (0.0-3.0); HEMATOCRIT 35.6 % (36.0-47.0); HEMOGLOBIN 10.5 g/dl (12.0-15.5); LYMPH # 0.7 10^3/uL (1.5-5.0); LYMPH % 9.5 % (24.0-44.0); MEAN CORPUSCULAR HEMOGLOBIN 25.5 pg (27.0-33.0); MEAN CORPUSCULAR HGB CONC 29.5 g/dl (32.0-36.5); MEAN CORPUSCULAR VOLUME 86.4 fl (80.0-96.0); MONO # 0.7 10^3/uL (0.0-0.8); MONO % 9.4 % (0.0-5.0); NEUTROPHILS # 5.3 10^3/uL (1.5-8.5); NEUTROPHILS % 74.7 % (36.0-66.0); PLATELET COUNT, AUTOMATED 235 10^3/uL (150-450); RED BLOOD COUNT 4.12 10^6/uL (4.00-5.40); WHITE BLOOD COUNT 7.1 10^3/uL (4.0-10.0)
[2018-11-09 17:23] LABS: ALT/SGPT 14 U/L (12-78); BILIRUBIN,TOTAL 0.7 MG/DL (0.2-1.0); BLOOD UREA NITROGEN 15 MG/DL (7-18); CALCIUM LEVEL 8.3 MG/DL (8.8-10.2); CARBON DIOXIDE LEVEL 27 MEQ/L (21-32); CHLORIDE LEVEL 109 MEQ/L (98-107); CREATININE FOR GFR 0.76 MG/DL (0.55-1.30); GLOMERULAR FILTRATION RATE > 60.0 (>32); GLUCOSE, FASTING 104 MG/DL (70-100); MAGNESIUM LEVEL 1.1 MG/DL (1.8-2.4); POTASSIUM SERUM 4.6 MEQ/L (3.5-5.1); SODIUM LEVEL 143 MEQ/L (136-145); TOTAL PROTEIN 6.2 GM/DL (6.4-8.2)
== END ==
LOC: M LAB 15:43
PROVIDERS: ATTEND Internal Medicine Hematology & Oncology
DX: C18.9 Malignant neoplasm of colon, unspecified (principal)

== ENCOUNTER 2018-11-16 17:54 | Observation (INO) | payer MEDICARE ==
[~2018-11-16] VITALS: Ht 157.5 cm; Wt 75.0 kg
[2018-11-16] MEDS: MAGNESIUM CHLORIDE 64 MG TABCR (SLO MAG) PO SCH (15:00)
[2018-11-16] MEDS: METOPROLOL SUCC *XL* 25MG TAB (TopROL *XL*) PO SCH (15:00)
[2018-11-16] MEDS: APIXABAN 2.5 MG TAB (ELIQUIS) PO SCH (15:00)
[2018-11-16] MEDS: busPIRone 10 MG TAB PO SCH (15:00)
[~2018-11-16 17:54] MED LIST changes: -OMEP40CA2 PO; +OMEP40CA97 PO
[2018-11-16] MEDS ORDERED: LOPERAMIDE 2 MG CAP PO ONE (18:45)
[2018-11-16 19:15] LABS: BASO # 0.1 10^3/uL (0.0-0.2); BASO % 0.7 % (0.0-1.0); EOS # 0.4 10^3/uL (0.0-0.5); HEMATOCRIT 34.5 % (36.0-47.0); HEMOGLOBIN 10.3 g/dl (12.0-15.5); LYMPH # 0.8 10^3/uL (1.5-5.0); MEAN CORPUSCULAR HGB CONC 29.9 g/dl (32.0-36.5); MEAN CORPUSCULAR VOLUME 87.1 fl (80.0-96.0); MONO # 0.6 10^3/uL (0.0-0.8); MONO % 8.4 % (0.0-5.0); NEUTROPHILS # 5.7 10^3/uL (1.5-8.5); NEUTROPHILS % 74.5 % (36.0-66.0); PLATELET COUNT, AUTOMATED 234 10^3/uL (150-450); RED BLOOD COUNT 3.96 10^6/uL (4.00-5.40); WHITE BLOOD COUNT 7.6 10^3/uL (4.0-10.0)
[2018-11-16 19:32] LABS: ALT/SGPT 16 U/L (12-78); BILIRUBIN,DIRECT 0.1 MG/DL (0.0-0.2); BILIRUBIN,TOTAL 0.4 MG/DL (0.2-1.0); BLOOD UREA NITROGEN 12 MG/DL (7-18); CALCIUM LEVEL 7.4 MG/DL (8.8-10.2); CARBON DIOXIDE LEVEL 19 MEQ/L (21-32); CHLORIDE LEVEL 116 MEQ/L (98-107); CREATININE FOR GFR 0.81 MG/DL (0.55-1.30); GLOMERULAR FILTRATION RATE > 60.0 (>32); GLUCOSE, FASTING 124 MG/DL (70-100); PHOSPHORUS LEVEL 3.1 MG/DL (2.5-4.9); POTASSIUM SERUM 4.3 MEQ/L (3.5-5.1); SODIUM LEVEL 145 MEQ/L (136-145); TOTAL PROTEIN 6.3 GM/DL (6.4-8.2)
[2018-11-16 19:57] LABS: MAGNESIUM LEVEL 0.7 MG/DL (1.8-2.4)
[2018-11-16] MEDS ORDERED: MAG SULF 1GM/100ML (MAG RUN) 1 GM in IV 1 EA IV ONE ×2 (20:00→21:30)
[2018-11-16] MEDS ORDERED: HEPARIN SOD (PORCINE) 5000 UNITS/ML VIAL SC SCH (21:00)
[2018-11-16] MEDS ORDERED: NITROGLYCERIN 0.4 MG SUBL TABLET SL PRN (21:30)
[2018-11-16] MEDS ORDERED: LORazepam 0.5 MG TAB PO PRN (21:30)
--- NOTE | 2018-11-16 21:32 | HPEPDOC ---
General Date of Admission Nov 16, 2018 at 17:55 Date of Service: Nov 16, 2018 Primary Care Physician: Phillip Herbert MD Chief Complaint The patient is a 83-year-old female admitted with a reason for visit of Hypomagnesemia. Source: Patient Exam Limitations: No limitations Timing/Duration: Other Severity: Other (not applicable) Associated Symptoms: Other History of Present Illness 83 years old white female with past medical history of stage IV colorectal carcinoma was called by her oncologist in [place] that her magnesium is very low and she should go to the hospital for admission. Patient denies any complaints including chest pain, shortness of breath, nausea, vomiting, diarrhea, etc. Home Medications Scheduled Apixaban (Eliquis) 2.5 Mg Tab, 2.5 MG PO BID, (Reported) 2ND DOSE @ 1500 Aspirin (Aspirin EC) 81 Mg Tab, 81 MG PO DAILY, (Reported) Atorvastatin Calcium (Atorvastatin Calcium) 40 Mg Tab, 40 MG PO DAILY, (Reported) Buspirone HCl (Buspirone HCl) 10 Mg Tab, 10 MG PO BID, (Reported) 2ND DOSE @ 1500 Cholecalciferol (Vitamin D3) (Vitamin D3) 2,000 Unit Cap, 2,000 UNIT PO DAILY, (Reported) Levothyroxine Sodium (Levothyroxine Sodium) 75 Mcg Tab, 75 MCG PO DAILY, (Reported) Losartan Potassium (Losartan Potassium) 25 Mg Tablet, 25 MG PO DAILY, (Reported) Magnesium Chloride (Mag64) 64 Mg Tablet.dr, 64 MG PO BID, (Reported) MORNING AND AROUND 3PM Metoprolol Succinate (Metoprolol Succinate) 25 Mg Tab, 12.5 MG PO BID, (Rep orted) 2ND DOSE @ 1500 Omeprazole (Omeprazole) 40 Mg Capsule.dr, 40 MG PO DAILY, (Reported) Panitumumab (Vectibix) 100 Mg/5 Ml Vial, 100 MG IV EVERY TWO WEEKS, (Reported) INFUSION GIVEN IN [place] EVERY OTHER WEDNESDAY Scheduled PRN Lorazepam (Lorazepam) 0.5 Mg Tab, 0.5 MG PO BID PRN for ANXIETY, (Reported) Nitroglycerin (Nitrostat) 0.4 Mg Subl, 0.4 MG SL NITRO PRN for CHEST PAIN, (Reported) Allergies Coded Allergies: albuterol (Verified Allergy, Severe, Shortness of breath, 05/04/18) ipratropium (Verified Allergy, Severe, Shortness of breath, 05/04/18) Past Medical History Medical History Stage IV colorectal carcinoma with metastases to liver, chronic, CAD status post DE, chronic systolic heart failure, ischemic cardiac myopathy, ICD and pacemaker placement Surgical History Status post hysterectomy stable, cholecystectomy, status post partial colectomy Family History Significant Family History: No pertinent family hx Social History * Smoker: Denies Alcohol: Denies Drugs: denies A-FIB/CHADSVASC A-FIB History Current/History of A-Fib/PAF?: Yes Current PO Anticoag Therapy: Yes Review of Systems Constitutional: Denies: Chills, Fever, Malaise, Night Sweats, Weakness, Fatigue, Weight Loss, Lethargy, Other Eyes: Denies: Pain, Vision change, Conjunctivae inflammation, Eyelid inflammation, Redness, Other ENT: Denies: Head Aches, Ear Pain, Dysphagia, Sinus Congestion, Post Nasal Drip, Sore Throat, Epistaxis, Other Symptoms Skin: Denies: Rash, Lesions, Jaundice, Bruising, Itching, Dry, Breakdown, Nail Changes, Other Pulmonary: Denies: Dyspnea, Cough, Pleuritic Chest Pain, Other Symptoms Cardiovascular: Denies: Chest Pain, Palpitations, Orthopnea, Paroxysmal Noc. Dyspnea, Edema, Lt Headedness, Other Symptoms Gastrointestinal: Denies: Nausea, Vomiting, Abdominal Pain, Diarrhea, Constip ation, Melena, Hematochezia, Other Symptoms Genitourinary: Denies: Dysuria, Frequency, Incontinence, Hematuria, Retention, Other Symptoms Hematologic: Denies: Bruising, Bleeding Excessively, Petecchia, Purpura, Enlarged Lymph Nodes, Other Hematologic Endocrine: Denies: Polydipsia, Polyphagia, Polyuria, Heat Intolerance, Cold Intolerance, Other Endocrine Sx Musculoskeletal: Denies: Neck Pain, Back Pain, Shoulder Pain, Arm Pain, Hand Pain, Leg Pain, Foot Pain, Joint Pain, Muscle Pain, Spasms, Other Symptoms Neurological: Denies: Weakness, Numbness, Incoordination, Change in speech, Con fusion, Seizures, Other Symptoms Psych: Denies: Mood Normal, Anxiety, Depression, Memory Issues, Thoughts of Self Harm, Anger, Thoughts of Harming Other, Other Psych Physical Examination General Exam: Positive: Alert, Cooperative Eye Exam: Positive: PERRLA, Conjunctiva & lids normal ENT Exam: Positive: Atraumatic, Mucous membr. moist/pink Neck Exam: Positive: Supple, JVD Chest Exam: Positive: Clear to auscultation, Normal air movement Heart Exam: Positive: Normal S1, Normal S2 Abdomen Exam: Positive: Normal bowel sounds, Soft Extremity Exam: Positive: Normal pulses Skin Exam: Positive: Nl turgor and temperature Neuro Exam: Positive: Normal Gait, Strength at 5/5 X4 ext, Sensation Intact Psych Exam: Positive: Mental status NL, Mood NL, Oriented x 3 Vital Signs Vital Signs Date Time Temp Pulse Resp B/P (MAP) Pulse Ox O2 Delivery O2 Flow Rate FiO2 11/16/18 21:00 56 17 146/69 (94) 98 Room Air 11/16/18 17:54 96.8 Laboratory Data Labs 24H Laboratory Tests 2 11/16/18 18:57: Immature Granulocyte % (Auto) 0.4, White Blood Count 7.6, Red Blood Count 3.96L, Hemoglobin 10.3L, Hematocrit 34.5L, Mean Corpuscular Volume 87.1, Mean Corpuscular Hemoglobin 26.0L, Mean Corpuscular Hemoglobin Concent 29.9L, Red Cell Distribution Width 17.0H, Platelet Count 234, Neutrophils (%) (Auto) 74.5H, Lymphocytes (%) (Auto) 11.0L, Monocytes (%) (Auto) 8.4H, Eosinophils (%) (Auto) 5.0H, Basophils (%) (Auto) 0.7, Neutrophils # (Auto) 5.7, Lymphocytes # (Auto) 0.8L, Monocytes # (Auto) 0.6, Eosinophils # (Auto) 0.4, Basophils # (Auto) 0.1, Nucleated Red Blood Cells % (auto) 0.0, Anion Gap 10, Glomerular Filtration Rate > 60.0, Calcium Level 7.4L, Phosphorus Level 3.1, Magnesium Level 0.7*L, Aspartate Amino Transf (AST/SGOT) 15, Alanine Aminotransferase (ALT/SGPT) 16, Alkaline Phosphatase 89, Total Bilirubin 0.4, Direct Bilirubin 0.1, Total Protein 6.3L, Albumin 3.0L, Albumin/Globulin Ratio 0.91L CBC/BMP Laboratory Tests 11/16/18 18:57 Red Blood Count 3.96 L, Mean Corpuscular Volume 87.1, Mean Corpuscular Hemoglobin 26.0 L, Mean Corpuscular Hemoglobin Concent 29.9 L, Red Cell Distribution Width 17.0 H, Neutrophils (%) (Auto) 74.5 H, Lymphocytes (%) (Auto) 11.0 L, Monocytes (%) (Auto) 8.4 H, Eosinophils (%) (Auto) 5.0 H, Basophils (%) (Auto) 0.7, Neutrophils # (Auto) 5.7, Lymphocytes # (Auto) 0.8 L, Monocytes # (Auto) 0.6, Eosinophils # (Auto) 0.4, Basophils # (Auto) 0.1 Problems (1) Hypomagnesemia Status: Acute Problem Text: 83 years old white female with past medical history of colorectal carcinoma who gets her regular blood work done weekly at her oncologist in [place] and was told that her magnesium is very low. In ED, her prednisone was found to be 0.7 and we're asked to admit patient for magnesium supplementation. Patient is completely asymptomatic Admit patient to med surg with telemetry . She did receive 1 g of magnesium in ED and will give one more gram of mag sulfate tonight. Repeat magnesium levels in a.m. Repeat electrolytes in a Heart monitoring Possible discharge home once mag level is within normal range And sign out to Dr. Herbert in the in the morning Plan / VTE VTE Prophylaxis Ordered?: Yes MIGUELANGEL NASCIMENTO MD Nov 16, 2018 21:32
[2018-11-16 23:45] VITALS: BP 150/60
[2018-11-17 06:00] VITALS: BP 131/59
[2018-11-17 06:48] LABS: ALBUMIN 2.6 GM/DL (3.2-5.2); ALT/SGPT 13 U/L (12-78); BILIRUBIN,TOTAL 0.6 MG/DL (0.2-1.0); BLOOD UREA NITROGEN 10 MG/DL (7-18); CALCIUM LEVEL 7.7 MG/DL (8.8-10.2); CARBON DIOXIDE LEVEL 23 MEQ/L (21-32); CHLORIDE LEVEL 114 MEQ/L (98-107); CREATININE FOR GFR 0.65 MG/DL (0.55-1.30); GLOMERULAR FILTRATION RATE > 60.0 (>32); GLUCOSE, FASTING 94 MG/DL (70-100); MAGNESIUM LEVEL 1.3 MG/DL (1.8-2.4); POTASSIUM SERUM 3.9 MEQ/L (3.5-5.1); SODIUM LEVEL 143 MEQ/L (136-145)
[2018-11-17 07:55] VITALS: BP 130/60
[2018-11-17] MEDS: busPIRone 10 MG TAB PO SCH ×2 (08:00→14:41)
[2018-11-17] MEDS: METOPROLOL SUCC *XL* 25MG TAB (TopROL *XL*) PO SCH ×2 (08:00→14:41)
[2018-11-17] MEDS: LOSARTAN 25 MG TAB PO SCH (08:01)
[2018-11-17] MEDS: MAGNESIUM CHLORIDE 64 MG TABCR (SLO MAG) PO SCH ×2 (08:01→14:41)
[2018-11-17] MEDS: LEVOTHYROXINE 75MCG TABLET (0.075MG) PO SCH (08:01)
[2018-11-17] MEDS: ATORVASTATIN 20 MG TAB PO SCH (08:01)
[2018-11-17] MEDS: ASPIRIN 81 MG ENTERIC TAB PO SCH (08:01)
[2018-11-17] MEDS: VITAMIN D 1,000 INTERNATIONAL UNITS TABLET PO SCH (08:01)
[2018-11-17] MEDS: APIXABAN 2.5 MG TAB (ELIQUIS) PO SCH ×2 (08:02→14:41)
--- NOTE | 2018-11-17 09:29 | IPNPDOC ---
Subjective Date Seen The patient was seen on 11/17/18. Subjective Chief Complaint/HPI Pt this morning reports that she is feeling just fine. She has no new concerns. General: Denies: Fatigue Constitutional: Denies: Chills, Fever Pulmonary: Denies: Dyspnea, Cough Cardiovascular: Denies: Chest Pain, Palpitations Gastrointestinal: Denies: Nausea, Vomiting, Diarrhea Neurological: Denies: Weakness Psych: Reports: Mood Normal Objective Physical Examination General Exam: Positive: Alert, Cooperative ENT Exam: Positive: Mucous membr. moist/pink Neck Exam: Positive: Supple, JVD Chest Exam: Positive: Clear to auscultation, Normal air movement Heart Exam: Positive: Normal S1, Normal S2 Abdomen Exam: Positive: Normal bowel sounds, Soft Extremity Exam: Positive: Normal pulses Skin Exam: Positive: Nl turgor and temperature Neuro Exam: Positive: Normal Gait, Strength at 5/5 X4 ext, Sensation Intact Psych Exam: Positive: Mental status NL, Mood NL, Oriented x 3 Assessment /Plan Problems (1) Hypomagnesemia Status: Acute Response to Treatment: Stable, Improving Discussed With: Nurse, Patient Problem Specific Plan: Monitor Clinically, Repeat Labs Problem Text: Pt with Mag 0.6 on admission, improved with replacement overnight to 1.3, will give additional K runs this morning and increase Mag dose PO. (2) Atrial fibrillation Status: Chronic Response to Treatment: Stable Problem Specific Plan: Monitor Clinically (3) Chronic systolic CHF (congestive heart failure) Status: Chronic Response to Treatment: Stable Problem Specific Plan: Monitor Clinically Plan/VTE VTE Prophylaxis Ordered?: Yes VS, I&O, 24H, Fishbone Vital Signs/I&O Vital Signs Date Time Temp Pulse Resp B/P (MAP) Pulse Ox O2 Delivery O2 Flow Rate FiO2 11/17/18 08:00 53 130/60 11/17/18 07:55 17 98 11/17/18 06:00 96.8 11/16/18 22:15 Room Air I&O- Last 24 Hours up to 6 AM 11/17/18 06:00 Intake Total 350 ml Balance 350 ml Laboratory Data 24H LABS Laboratory Tests 2 11/16/18 18:57: Immature Granulocyte % (Auto) 0.4, White Blood Count 7.6, Red Blood Count 3.96L, Hemoglobin 10.3L, Hematocrit 34.5L, Mean Corpuscular Volume 87.1, Mean Corpuscular Hemoglobin 26.0L, Mean Corpuscular Hemoglobin Concent 29.9L, Red Cell Distribution Width 17.0H, Platelet Count 234, Neutrophils (%) (Auto) 74.5H, Lymphocytes (%) (Auto) 11.0L, Monocytes (%) (Auto) 8.4H, Eosinophils (%) (Auto) 5.0H, Basophils (%) (Auto) 0.7, Neutrophils # (Auto) 5.7, Lymphocytes # (Auto) 0.8L, Monocytes # (Auto) 0.6, Eosinophils # (Auto) 0.4, Basophils # (Auto) 0.1, Nucleated Red Blood Cells % (auto) 0.0, Anion Gap 10, Glomerular Filtration Rate > 60.0, Calcium Level 7.4L, Phosphorus Level 3.1, Magnesium Level 0.7*L, Aspartate Amino Transf (AST/SGOT) 15, Alanine Aminotransferase (ALT/SGPT) 16, Alkaline Phosphatase 89, Total Bilirubin 0.4, Direct Bilirubin 0.1, Total Protein 6.3L, Albumin 3.0L, Albumin/Globulin Ratio 0.91L 11/17/18 05:59: Anion Gap 6L, Glomerular Filtration Rate > 60.0, Calcium Level 7.7L, Magnesium Level 1.3L, Aspartate Amino Transf (AST/SGOT) 14, Alanine Aminotransferase (ALT/SGPT) 13, Alkaline Phosphatase 77, Total Bilirubin 0.6, Total Protein 6.0L, Albumin 2.6L, Albumin/Globulin Ratio 0.76L, Blood Urea Nitrogen 10, Creatinine 0.65, Sodium Level 143, Potassium Level 3.9, Chloride Level 114H, Carbon Dioxide Level 23 CBC/BMP Laboratory Tests 11/16/18 18:57 Red Blood Count 3.96 L, Mean Corpuscular Volume 87.1, Mean Corpuscular Hemoglobin 26.0 L, Mean Corpuscular Hemoglobin Concent 29.9 L, Red Cell Distribution Width 17.0 H, Neutrophils (%) (Auto) 74.5 H, Lymphocytes (%) (Auto) 11.0 L, Monocytes (%) (Auto) 8.4 H, Eosinophils (%) (Auto) 5.0 H, Basophils (%) (Auto) 0.7, Neutrophils # (Auto) 5.7, Lymphocytes # (Auto) 0.8 L, Monocytes # (Auto) 0.6, Eosinophils # (Auto) 0.4, Basophils # (Auto) 0.1 11/17/18 05:59 Calcium Level 7.7 L, Aspartate Amino Transf (AST/SGOT) 14, Alanine Aminotransferase (ALT/SGPT) 13, Alkaline Phosphatase 77, Total Bilirubin 0.6, Total Protein 6.0 L, Albumin 2.6 L SHAD PETRESON PA-C Nov 17, 2018 09:29
[2018-11-17] MEDS: MAG SULF 1GM/100ML (MAG RUN) 1 GM in IV 1 EA IV SCH ×2 (10:17→11:17)
--- NOTE | 2018-11-17 10:54 | ECGEPIP ---
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
[2018-11-17 14:00] VITALS: BP 142/62
[2018-11-17] MEDS ORDERED: PANTOPRAZOLE 20 MG TAB PO SCH (21:00)
[2018-11-17 22:00] VITALS: BP 140/63
[2018-11-18 06:00] VITALS: BP 132/65
[2018-11-18] MEDS ORDERED: MAG SULF 1GM/100ML (MAG RUN) 1 GM in IV 1 EA IV ONE ×3 (08:00→13:15)
[2018-11-18] MEDS: ATORVASTATIN 20 MG TAB PO SCH (08:43)
[2018-11-18] MEDS: APIXABAN 2.5 MG TAB (ELIQUIS) PO SCH ×2 (08:43→15:44)
[2018-11-18] MEDS: MAG SULF 1GM/100ML (MAG RUN) 1 GM in IV 1 EA IV SCH ×2 (08:43→10:05)
[2018-11-18] MEDS: busPIRone 10 MG TAB PO SCH ×2 (08:44→15:44)
[2018-11-18] MEDS: ASPIRIN 81 MG ENTERIC TAB PO SCH (08:44)
[2018-11-18] MEDS: MAGNESIUM CHLORIDE 64 MG TABCR (SLO MAG) PO SCH ×2 (08:44→15:44)
[2018-11-18] MEDS: LEVOTHYROXINE 75MCG TABLET (0.075MG) PO SCH (08:44)
[2018-11-18] MEDS: VITAMIN D 1,000 INTERNATIONAL UNITS TABLET PO SCH (08:44)
[2018-11-18 08:46] VITALS: BP 164/74
[2018-11-18] MEDS: LOSARTAN 25 MG TAB PO SCH (08:46)
[2018-11-18] MEDS: METOPROLOL SUCC *XL* 25MG TAB (TopROL *XL*) PO SCH ×2 (08:46→15:44)
--- NOTE | 2018-11-18 09:48 | IPNPDOC ---
Subjective Date Seen The patient was seen on 11/18/18. Subjective Chief Complaint/HPI Pt this morning states that she has a funny feeling in her chest that started after she ate her breakfast, feels like she needs to be burp and just cant. Denies pain, SOB. She is disappointed that her Mag dropped this morning. She has had two formed BMs since yesterday morning. General: Denies: Fatigue Constitutional: Denies: Chills, Fever ENT: Denies: Head Aches Pulmonary: Denies: Dyspnea, Cough Cardiovascular: Denies: Chest Pain, Palpitations Gastrointestinal: Denies: Nausea, Vomiting, Diarrhea Neurological: Denies: Weakness Psych: Reports: Mood Normal Objective Physical Examination General Exam: Positive: Alert, Cooperative ENT Exam: Positive: Mucous membr. moist/pink Neck Exam: Positive: Supple, JVD Chest Exam: Positive: Clear to auscultation, Normal air movement Heart Exam: Positive: Normal S1, Normal S2 Abdomen Exam: Positive: Normal bowel sounds, Soft Extremity Exam: Positive: Normal pulses Skin Exam: Positive: Nl turgor and temperature Neuro Exam: Positive: Normal Gait, Strength at 5/5 X4 ext, Sensation Intact Psych Exam: Positive: Mental status NL, Mood NL, Oriented x 3 Assessment /Plan Problems (1) Hypomagnesemia Status: Acute Response to Treatment: Stable, Improving Discussed With: Nurse, Patient Problem Specific Plan: Monitor Clinically, Repeat Labs Problem Text: 11/18 Mag improved tro 1.8 yesterday with replacement, now down to 1.1 this morning, 2 additional Mag runs ordered, her PO Mag dose from was in creased yest from 64 mgBID to 128 mg BID. 11/17 Pt with Mag 0.6 on admission, improved with replacement overnight to 1.3, will give additional Mag runs this morning and increase Mag dose PO. (2) Atrial fibrillation Status: Chronic Response to Treatment: Stable Problem Specific Plan: Monitor Clinically (3) Chronic systolic CHF (congestive heart failure) Status: Chronic Response to Treatment: Stable Problem Specific Plan: Monitor Clinically Plan/VTE VTE Prophylaxis Ordered?: Yes VS, I&O, 24H, Fishbone Vital Signs/I&O Vital Signs Date Time Temp Pulse Resp B/P (MAP) Pulse Ox O2 Delivery O2 Flow Rate FiO2 11/18/18 08:46 63 164/74 11/18/18 06:00 96.9 18 96 11/16/18 22:15 Room Air I&O- Last 24 Hours up to 6 AM 11/18/18 06:00 Intake Total 1390 ml Balance 1390 ml Laboratory Data 24H LABS Laboratory Tests 2 11/17/18 13:54: Magnesium Level 1.8 11/18/18 05:31: Magnesium Level 1.1L SHAD PETERSON PA-C Nov 18, 2018 09:47
[2018-11-18 14:00] VITALS: BP_SYST 136; BP_DIAS 61; BP_DIAS 62
[2018-11-18] MEDS ORDERED: MAGN64TASA PO (14:08)
[2018-11-29] MEDS ORDERED: LORA0.5T11 PO (18:20)
== END 2018-11-18 16:15 | disposition home or self-care (01) ==
LOC: M ED 17:54 → M ED INP 17:55 → M MSPAV 23:44
PROVIDERS: ADMIT Internal Medicine; ATTEND Family Medicine
DX: E83.42 Hypomagnesemia (principal); C18.9 Malignant neoplasm of colon, unspecified; C78.7 Secondary malignant neoplasm of liver and intrahepatic bile duct; I25.10 Atherosclerotic heart disease of native coronary artery without angina pectoris; I50.22 Chronic systolic (congestive) heart failure; I25.5 Ischemic cardiomyopathy; Z95.0 Presence of cardiac pacemaker; Z79.82 Long term (current) use of aspirin; Z79.899 Other long term (current) drug therapy; Z88.8 Allergy status to other drugs, medicaments and biological substances
CPT/HCPCS: 36415; 80053; 83735; 84100; 85025; 93005; 93041; 96361; 96365; 96366; 99285; G0378; J3475

== ENCOUNTER → 2018-11-16 | Outpatient (CLI) | payer MEDICARE ==
[2018-11-16 17:22] LABS: ALT/SGPT 14 U/L (12-78); BILIRUBIN,TOTAL 0.3 MG/DL (0.2-1.0); BLOOD UREA NITROGEN 11 MG/DL (7-18); CALCIUM LEVEL 7.5 MG/DL (8.8-10.2); CARBON DIOXIDE LEVEL 26 MEQ/L (21-32); CHLORIDE LEVEL 115 MEQ/L (98-107); CREATININE FOR GFR 0.74 MG/DL (0.55-1.30); GLOMERULAR FILTRATION RATE > 60.0 (>32); GLUCOSE, FASTING 107 MG/DL (70-100); MAGNESIUM LEVEL 0.6 MG/DL (1.8-2.4); POTASSIUM SERUM 4.1 MEQ/L (3.5-5.1); SODIUM LEVEL 148 MEQ/L (136-145); TOTAL PROTEIN 6.4 GM/DL (6.4-8.2)
== END ==
LOC: M LAB 15:55
PROVIDERS: ATTEND Internal Medicine Hematology & Oncology
DX: C18.9 Malignant neoplasm of colon, unspecified (principal)

== ENCOUNTER → 2018-11-21 | Outpatient (CLI) | payer MEDICARE ==
[~2018-11-21] MED LIST changes: +MAGN1INJ2 IV; +MAGN400T2 PO
== END ==
LOC: M LAB 10:33
PROVIDERS: ATTEND Family Medicine
DX: E83.42 Hypomagnesemia (principal)

== ENCOUNTER 2018-11-22 07:50 | Outpatient (CLI) | payer MEDICARE ==
[~2018-11-22] VITALS: Ht 157.5 cm; Wt 72.7 kg
[~2018-11-22 07:50] MED LIST changes: -MAGN1INJ2 IV; -MAGN400T2 PO
[2018-11-22 08:00] VITALS: BP 130/60
[2018-11-22] MEDS ORDERED: MAGN1INJ2 IV (08:47)
[2018-11-22 08:57] VITALS: BP 130/60
[2018-11-22] MEDS ORDERED: MAG SULF 1GM/100ML (MAG RUN) X 2 DOSES (2GM TOTAL) IV SCH ×2 (09:00)
[2018-11-22 09:30] VITALS: BP 119/56
[2018-11-22 10:30] VITALS: BP 122/60
== END 2018-11-22 10:30 | disposition home or self-care (01) ==
LOC: M INFU 07:50
PROVIDERS: ATTEND Physician Assistant Medical
DX: E83.42 Hypomagnesemia (principal)
CPT/HCPCS: 96365; 96366; J3475

== ENCOUNTER 2018-11-23 15:10 | Outpatient (CLI) | payer MEDICARE ==
[~2018-11-23] VITALS: Ht 157.5 cm; Wt 72.7 kg
[~2018-11-23 15:10] MED LIST changes: -OMEP40CA2 PO; +OMEP40CA97 PO
[2018-11-23 15:15] VITALS: BP 152/67
[2018-11-23 15:38] VITALS: BP 144/66
[2018-11-23] MEDS: MAG SULF 1GM/100ML (MAG RUN) X 2 DOSES (2GM TOTAL) IV SCH ×4 (15:39→16:38)
[2018-11-23 16:10] VITALS: BP 145/65
[2018-11-29] MEDS ORDERED: LORA0.5T11 PO (18:20)
== END 2018-11-23 18:10 | disposition home or self-care (01) ==
LOC: M INFU 15:10
PROVIDERS: ATTEND Internal Medicine Hematology & Oncology
DX: E83.42 Hypomagnesemia (principal); C18.9 Malignant neoplasm of colon, unspecified
CPT/HCPCS: 36415; 80053; 83735; 85025; 96365; 96366; J3475

== ENCOUNTER → 2018-11-23 | Outpatient (CLI) | payer MEDICARE ==
[~2018-11-23] MED LIST changes: +MAGN1INJ2 IV; +OMEP40CA2 PO; -OMEP40CA97 PO
[2018-11-23 12:13] LABS: BASO # 0.1 10^3/uL (0.0-0.2); EOS # 0.4 10^3/uL (0.0-0.5); EOS % 5.8 % (0.0-3.0); HEMATOCRIT 34.3 % (36.0-47.0); HEMOGLOBIN 10.4 g/dl (12.0-15.5); LYMPH # 0.7 10^3/uL (1.5-5.0); LYMPH % 11.5 % (24.0-44.0); MEAN CORPUSCULAR HEMOGLOBIN 25.9 pg (27.0-33.0); MEAN CORPUSCULAR HGB CONC 30.3 g/dl (32.0-36.5); MEAN CORPUSCULAR VOLUME 85.3 fl (80.0-96.0); MONO # 0.6 10^3/uL (0.0-0.8); MONO % 9.1 % (0.0-5.0); NEUTROPHILS # 4.5 10^3/uL (1.5-8.5); NEUTROPHILS % 72.3 % (36.0-66.0); PLATELET COUNT, AUTOMATED 270 10^3/uL (150-450); RED BLOOD COUNT 4.02 10^6/uL (4.00-5.40); WHITE BLOOD COUNT 6.2 10^3/uL (4.0-10.0)
[2018-11-23 13:53] LABS: ALBUMIN 2.9 GM/DL (3.2-5.2); ALT/SGPT 12 U/L (12-78); BILIRUBIN,TOTAL 0.5 MG/DL (0.2-1.0); BLOOD UREA NITROGEN 12 MG/DL (7-18); CARBON DIOXIDE LEVEL 24 MEQ/L (21-32); CHLORIDE LEVEL 115 MEQ/L (98-107); GLOMERULAR FILTRATION RATE > 60.0 (>32); GLUCOSE, FASTING 131 MG/DL (70-100); MAGNESIUM LEVEL 0.8 MG/DL (1.8-2.4); POTASSIUM SERUM 3.8 MEQ/L (3.5-5.1); SODIUM LEVEL 145 MEQ/L (136-145); TOTAL PROTEIN 6.2 GM/DL (6.4-8.2)
== END ==
LOC: M LAB 11:08
PROVIDERS: ATTEND Internal Medicine Hematology & Oncology
DX: C18.9 Malignant neoplasm of colon, unspecified (principal)

== ENCOUNTER 2018-11-24 15:15 | Outpatient (CLI) | payer MEDICARE ==
[~2018-11-24] VITALS: Ht 157.5 cm; Wt 72.7 kg
[2018-11-24 15:20] VITALS: BP 147/85
[2018-11-24] MEDS: MAG SULF 1GM/100ML (MAG RUN) X 2 DOSES (2GM TOTAL) IV SCH ×4 (16:00→16:57)
[2018-11-24 18:15] VITALS: BP 166/72
[2018-11-29] MEDS ORDERED: LORA0.5T11 PO (18:20)
== END 2018-11-24 18:20 | disposition home or self-care (01) ==
LOC: M INFU 15:15
PROVIDERS: ATTEND Internal Medicine Hematology & Oncology
DX: E83.42 Hypomagnesemia (principal); Z88.8 Allergy status to other drugs, medicaments and biological substances
CPT/HCPCS: 96365; 96366; J3475

== ENCOUNTER 2018-11-29 16:31 | Inpatient (IN) | payer MEDICARE ==
[~2018-11-29] VITALS: Ht 157.5 cm; Wt 78.2 kg
[~2018-11-29 16:31] MED LIST changes: +BISO5TAB14 PO; -BISO5TAB9 PO; -LORA0.5T11 PO; +LORA0.5T5 PO
[2018-11-29] MEDS ORDERED: MAG SULF 1GM/100ML (MAG RUN) 1 GM in IV 1 EA IV ONE (17:15)
[2018-11-29] MEDS ORDERED: MAGN400T2 PO (17:23)
[2018-11-29 17:26] LABS: BASO % 0.4 % (0.0-1.0); EOS # 0.3 10^3/uL (0.0-0.5); EOS % 3.7 % (0.0-3.0); HEMATOCRIT 33.5 % (36.0-47.0); HEMOGLOBIN 10.1 g/dl (12.0-15.5); LYMPH # 0.8 10^3/uL (1.5-5.0); LYMPH % 10.8 % (24.0-44.0); MEAN CORPUSCULAR HEMOGLOBIN 25.6 pg (27.0-33.0); MEAN CORPUSCULAR HGB CONC 30.1 g/dl (32.0-36.5); MEAN CORPUSCULAR VOLUME 84.8 fl (80.0-96.0); MONO # 0.6 10^3/uL (0.0-0.8); MONO % 8.4 % (0.0-5.0); NEUTROPHILS # 5.5 10^3/uL (1.5-8.5); NEUTROPHILS % 76.4 % (36.0-66.0); PLATELET COUNT, AUTOMATED 207 10^3/uL (150-450); RED BLOOD COUNT 3.95 10^6/uL (4.00-5.40); WHITE BLOOD COUNT 7.3 10^3/uL (4.0-10.0)
[2018-11-29 17:51] LABS: ALBUMIN 2.9 GM/DL (3.2-5.2); ALT/SGPT 12 U/L (12-78); BILIRUBIN,DIRECT < 0.1 MG/DL (0.0-0.2); BILIRUBIN,TOTAL 0.4 MG/DL (0.2-1.0); BLOOD UREA NITROGEN 12 MG/DL (7-18); CALCIUM LEVEL 7.6 MG/DL (8.8-10.2); CARBON DIOXIDE LEVEL 25 MEQ/L (21-32); CHLORIDE LEVEL 114 MEQ/L (98-107); GLOMERULAR FILTRATION RATE > 60.0 (>32); GLUCOSE, FASTING 104 MG/DL (70-100); MAGNESIUM LEVEL 0.7 MG/DL (1.8-2.4); POTASSIUM SERUM 4.4 MEQ/L (3.5-5.1); SODIUM LEVEL 145 MEQ/L (136-145); TOTAL PROTEIN 6.2 GM/DL (6.4-8.2)
[2018-11-29] MEDS ORDERED: LORA0.5T5 PO (18:20)
--- NOTE | 2018-11-29 18:24 | REP ---
HISTORY: Dyspnea. Low magnesium. COMPARISON: Multiple, the latest 07/15/2018, also portable. The technique utilized in obtaining the radiograph has magnified the cardiac silhouette and accentuated the interstitial markings. Mild chronic lung base changes, status quo. Cardiomegaly accentuated by technique. Single chamber bipolar pacemaker device, status quo. No acute patchy parenchymal opacities or pleural effusions have developed. The osseous structures are stable. IMPRESSION: Cardiomegaly and chronic fibrotic changes, but no evidence of acute cardiopulmonary disease. Electronically Signed by Jean Marie Richardson DO 11/29/2018 07:53 P
[2018-11-29] MEDS ORDERED: ACETAMINOPHEN TAB 650MG DOSE (2X325MG) PO PRN (19:00)
[2018-11-29 19:17] LABS: PHOSPHORUS LEVEL 2.5 MG/DL (2.5-4.9)
[2018-11-29] MEDS: MAG SULF 1GM/100ML (MAG RUN) 1 GM in IV 1 EA IV SCH ×2 (19:25→21:38)
[2018-11-29] MEDS ORDERED: MAGNESIUM OXIDE 400 MG TAB (MAG-OX) PO SCH (21:00)
[2018-11-29] MEDS: FAMOTIDINE 20 MG TAB PO SCH (21:39)
--- NOTE | 2018-11-29 22:01 | HPEPDOC ---
General Date of Admission 11/29/18 Date of Service: Nov 29, 2018 Chief Complaint The patient is a 83-year-old female admitted with a reason for visit of Low Magnesium. Source: Patient, RN/, Old records History of Present Illness 83 year old female with metastatic colorectal cancer with h/o recurrent profound hypomagnesemia though to be due to panitumumab whose last treatment was on 11/11/18 presented to the ED on the direction of her oncologist in [place] for hypomagnesemia. patient was not given her 11/25/18 dose of panitumumab due to hypomagnesemia she was treated with IV magnesium then and her oral magnesium (Mag 64 ) was changed to magnesium oxide which she started yesterday. Blood work done today showed a magnesium of 0.6 so was instructed to come to the ED. These episodes of severe hypomagnesemia has been going on for the past 2 months along with chronic persistent hypomagnesemia. She also used to have intermittent diarrhea but that is better now. She last used imodium about 4 days ago. She did complain of some abdominal pain in the hypogastrium which she experiences when the magnesium is very low. She was admitted for hypomagnesemia. EKG reviewed shows sinus bradycardia no qtc abnormality. Home Medications Scheduled Apixaban (Eliquis) 2.5 Mg Tab, 2.5 MG PO BID, (Reported) 2ND DOSE @ 1500 Aspirin (Aspirin EC) 81 Mg Tab, 81 MG PO DAILY, (Reported) Atorvastatin Calcium (Atorvastatin Calcium) 40 Mg Tab, 40 MG PO DAILY, (R eported) Buspirone HCl (Buspirone HCl) 10 Mg Tab, 10 MG PO BID, (Reported) 2ND DOSE @ 1500 Calcium Carbonate (Calcium Carbonate) 200 Mg Tab.chew, 1,000 MG PO TID Cholecalciferol (Vitamin D3) (Vitamin D3) 2,000 Unit Cap, 2,000 UNIT PO DAILY, (Reported) Famotidine (Famotidine) 20 Mg Tablet, 20 MG PO BID Levothyroxine Sodium (Levothyroxine Sodium) 75 Mcg Tab, 75 MCG PO DAILY, (Reported) Losartan Potassium (Losartan Potassium) 25 Mg Tablet, 25 MG PO DAILY, (Reported) Magnesium Oxide (Magnesium Oxide) 400 Mg Tablet, 400 MG PO QID Magnesium Sulfate/D5w (Magnesium Sulf 1 G/100 ml-D5w) 1 Gm/100 Ml Piggyback, 1 GM IV ASDIRECTED, (Reported) Metoprolol Succinate (Metoprolol Succinate) 25 Mg Tab, 12.5 MG PO BID, (Reported) 2ND DOSE @ 1500 Panitumumab (Vectibix) 100 Mg/5 Ml Vial, 100 MG IV EVERY TWO WEEKS, (Reported) INFUSION GIVEN IN [facility] EVERY OTHER WEDNESDAY NEXT INFUSION IS Dec Scheduled PRN Lorazepam (Lorazepam) 0.5 Mg Tablet, 0.5 MG PO BID PRN for ANXIETY/AGITATION, (Reported) Use sublingually if unable to swallow Nitroglycerin (Nitrostat) 0.4 Mg Subl, 0.4 MG SL NITRO PRN for CHEST PAIN, (Reported) Allergies Coded Allergies: albuterol (Verified Allergy, Severe, Shortness of breath, 05/04/18) ipratropium (Verified Allergy, Severe, Shortness of breath, 05/04/18) Past Medical History Medical History Persistent hypomagnesemia, felt to be secondary to panitumumab (an EGFRi). Atrial fibrillation. chronic Diarrhea, in part related to magnesium. 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 No adjuvant therapy. 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 0/3 nodes. Chronic CAD/ s/p NM Chronic Systolic CHF EF 30-35% / Ischemic Cardiomyopathy / s/p ICD & pacemaker placement hypothyroid hyperlipidemia anxiety Surgical History s/p hysterectomy s/p cholecystectomy s/p partial colectomy Family History CAD Cancer (esophageal, pancreatic) Social History * Smoker: Denies Alcohol: Denies Drugs: denies A-FIB/CHADSVASC A-FIB History Current/History of A-Fib/PAF?: Yes Current PO Anticoag Therapy: Yes Review of Systems Constitutional: Denies: Chills, Fever, Night Sweats Eyes: Denies: Pain, Vision change ENT: Denies: Head Aches, Ear Pain, Dysphagia Skin: Denies: Rash, Lesions, Breakdown Pulmonary: Denies: Dyspnea, Cough Cardiovascular: Reports: Edema; Denies: Chest Pain, Palpitations, Orthopnea, Paroxysmal Noc. Dyspnea, Lt Headedness Gastrointestinal: Reports: Abdominal Pain Genitourinary: Denies: Dysuria, Frequency, Incontinence, Retention Hematologic: Denies: Bruising, Bleeding Excessively Musculoskeletal: Denies: Neck Pain, Back Pain, Joint Pain, Muscle Pain, Spasms Physical Examination General Exam: Positive: Alert, Cooperative, No Acute Distress Eye Exam: Positive: PERRLA, Conjunctiva & lids normal, EOMI; Negative: Sclera icteric ENT Exam: Positive: Atraumatic, Mucous membr. moist/pink, Pharynx Normal Neck Exam: Positive: Supple; Negative: JVD, thyromegaly Chest Exam: Positive: Clear to auscultation, Normal air movement Heart Exam: Positive: Bradycardic, Regular Rhythm, Normal S1, Normal S2; Negative: Murmurs, Rubs Telemetry: Positive: No significant arrhythmia Abdomen Exam: Positive: Normal bowel sounds, Soft; Negative: Tenderness, Hepatospenomegaly Extremity Exam: Positive: Edema, Swelling Skin Exam: Positive: Nl turgor and temperature; Negative: Breakdown, Lesion Vital Signs Vital Signs Date Time Temp Pulse Resp B/P (MAP) Pulse Ox O2 Delivery O2 Flow Rate FiO2 11/29/18 16:40 97.6 59 18 138/70 (92) 98 Room Air Laboratory Data Labs 24H Laboratory Tests 2 11/29/18 17:09: Immature Granulocyte % (Auto) 0.3, Neutrophils (%) (Auto) 76.4H, Lymphocytes (%) (Auto) 10.8L, Monocytes (%) (Auto) 8.4H, Eosinophils (%) (Auto) 3.7H, Basophils (%) (Auto) 0.4, Neutrophils # (Auto) 5.5, Lymphocytes # (Auto) 0.8L, Monocytes # (Auto) 0.6, Eosinophils # (Auto) 0.3, Basophils # (Auto) 0.0, Nucleated Red Bl ood Cells % (auto) 0.0, Anion Gap 6L, Glomerular Filtration Rate > 60.0, Calcium Level 7.6L, Magnesium Level 0.7*L, Total Bilirubin 0.4, Direct Bilirubin < 0.1, Aspartate Amino Transf (AST/SGOT) 13, Alanine Aminotransferase (ALT/SGPT) 12, Alkaline Phosphatase 96, Total Protein 6.2L, Albumin 2.9L, Albumin/Globulin Ratio 0.88L CBC/BMP Laboratory Tests 11/29/18 17:09 Assessment/Plan 83 year old female with metastatic colorectal cancer with h/o recurrent profound hypomagnesemia though to be due to panitumumab whose last treatment was on 11/11/18 presented to the ED on the direction of her oncologist in [place] for hypomagnesemia. patient was not given her 11/25/18 dose of panitumumab due to hypomagnesemia she was treated with IV magnesium then and her oral magnesium (Mag 64 ) was changed to magnesium oxide which she started yesterday. Blood work done today showed a magnesium of 0.6 so was instructed to come to the ED. These episodes of severe hypomagnesemia has been going on for the past 2 months along with chronic persistent hypomagnesemia. She also used to have intermittent diarrhea but that is better now. She last used imodium about 4 days ago. She did complain of some abdominal pain in the hypogastrium which she experiences when the magnesium is very low. She was admitted for hypomagnesemia. Hypomagnesemia thought ot be due to panitumumab therapy will replace IV and oral and recheck. monitor under tele will stop omeprazole which may be worsening the problem and start on famotidine. Will check 24 hour urinary magnesium level Stage 4 Colerectal CA with mets to liver and bones. on panitumumab therapy every 2 weeks last dose was on 11/11/18. did not get the 11/25/18 dose due to hypomagnesemia, next dose due on 12/13/18 f/u w oncologist in [place] on an out pt basis CAD/ s/p NM stable no issues at present home meds ASA, statin, betablocker Chronic Systolic and diastolic CHF with EF 30-35% Ischemic Cardiomyopathy has AICD in place. continue home meds Atrial fibrillation now in sinus rhythm continue eliquis and metoprolol Hyperlipidemia statin hypothyroid synthroid Hypertension continue cozaar and metoprolol. Anxiety continue buspirone. Obesity Plan / VTE VTE Prophylaxis Ordered?: Yes HAI BAXTER MD Nov 29, 2018 18:20
--- NOTE | 2018-11-30 00:55 | ECGEPIP ---
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
[2018-11-30] MEDS: LEVOTHYROXINE 75MCG TABLET (0.075MG) PO SCH (06:25)
[2018-11-30] MEDS: busPIRone 10 MG TAB PO SCH ×2 (06:25→19:17)
[2018-11-30] MEDS: METOPROLOL SUCC *XL* 12.5MG PER 1/2 TAB (TopROL *XL*) PO SCH ×2 (06:25→19:16)
[2018-11-30] MEDS: APIXABAN 2.5 MG TAB (ELIQUIS) PO SCH ×2 (06:26→17:14)
[2018-11-30 06:50] LABS: BASO % 0.6 % (0.0-1.0); EOS # 0.3 10^3/uL (0.0-0.5); EOS % 4.1 % (0.0-3.0); HEMATOCRIT 32.4 % (36.0-47.0); HEMOGLOBIN 9.7 g/dl (12.0-15.5); LYMPH # 0.8 10^3/uL (1.5-5.0); LYMPH % 11.9 % (24.0-44.0); MEAN CORPUSCULAR HEMOGLOBIN 25.1 pg (27.0-33.0); MEAN CORPUSCULAR HGB CONC 29.9 g/dl (32.0-36.5); MEAN CORPUSCULAR VOLUME 83.9 fl (80.0-96.0); MONO # 0.6 10^3/uL (0.0-0.8); MONO % 9.4 % (0.0-5.0); NEUTROPHILS # 4.7 10^3/uL (1.5-8.5); NEUTROPHILS % 73.7 % (36.0-66.0); PLATELET COUNT, AUTOMATED 229 10^3/uL (150-450); RED BLOOD COUNT 3.86 10^6/uL (4.00-5.40); WHITE BLOOD COUNT 6.4 10^3/uL (4.0-10.0)
[2018-11-30 07:18] LABS: BLOOD UREA NITROGEN 9 MG/DL (7-18); CALCIUM LEVEL 7.9 MG/DL (8.8-10.2); CARBON DIOXIDE LEVEL 27 MEQ/L (21-32); CHLORIDE LEVEL 112 MEQ/L (98-107); CREATININE FOR GFR 0.67 MG/DL (0.55-1.30); GLOMERULAR FILTRATION RATE > 60.0 (>32); GLUCOSE, FASTING 93 MG/DL (70-100); MAGNESIUM LEVEL 1.3 MG/DL (1.8-2.4); POTASSIUM SERUM 4.4 MEQ/L (3.5-5.1); SODIUM LEVEL 145 MEQ/L (136-145)
[2018-11-30] MEDS ORDERED: MAG SULF 1GM/100ML (MAG RUN) 1 GM in IV 1 EA IV ONE (08:45)
[2018-11-30] MEDS: FUROSEMIDE 40 MG TAB PO SCH (09:00)
--- NOTE | 2018-11-30 09:14 | IPNPDOC ---
Subjective Date Seen The patient was seen on 11/30/18. Subjective Chief Complaint/HPI no complaints.no diarrhea, no cramping, no palpitations. Constitutional: Denies: Chills Pulmonary: Denies: Dyspnea, Cough Cardiovascular: Denies: Chest Pain, Orthopnea Gastrointestinal: Denies: Nausea, Abdominal Pain Genitourinary: Denies: Dysuria Hematologic: Denies: Bruising, Petecchia Endocrine: Denies: Polydipsia Musculoskeletal: Denies: Neck Pain Neurological: Denies: Weakness, Numbness Psych: Reports: Mood Normal; Denies: Anxiety Objective Physical Examination General Exam: Positive: Alert, Cooperative, No Acute Distress Eye Exam: Positive: PERRLA, Conjunctiva & lids normal, EOMI; Negative: Sclera icteric ENT Exam: Positive: Atraumatic, Mucous membr. moist/pink, Pharynx Normal Neck Exam: Positive: Supple; Negative: JVD, thyromegaly Chest Exam: Positive: Clear to auscultation, Normal air movement Heart Exam: Positive: Bradycardic, Regular Rhythm, Normal S1, Normal S2; Negative: Murmurs, Rubs Telemetry: Positive: No significant arrhythmia Abdomen Exam: Positive: Normal bowel sounds, Soft; Negative: Tenderness, Hepatospenomegaly Extremity Exam: Positive: Edema, Swelling Skin Exam: Positive: Nl turgor and temperature; Negative: Breakdown, Lesion Neuro Exam: Positive: Normal Speech Psych Exam: Positive: Mental status NL, Mood NL Assessment /Plan Problems (1) Hypomagnesemia Status: Acute Problem Text: acute worsening of chronic problem. secondary to use of chemotherapy agent, panitumumab. her last dose was held, according to the patient, due to ongoing electrolyte problems. Management of her Mg levels has b een aided by outpatient infusions but she doesn't drive, is dependent on her daughter to take her to get labs done so labs are typically not done until mid afternoon which is a bit late to get her plugged into the infusion center for treatment, so was directed by Dr. Romero to come to ER when her outpatient result was quite low. (2) Metastatic colon cancer to liver Status: Chronic Response to Treatment: Stable Problem Text: treatment inititated by [facility] at [facility]. Vectibix which can cause hypomagnesemia. (3) Atrial fibrillation Status: Chronic Response to Treatment: Stable Problem Text: on Eliquis prophylaxis. (4) Hypocalcemia Status: Chronic Problem Text: oral replacement ordered and Vitamin D. will also hold PPI going forward since routine use may interfere with absorption of oral Ca and Mg. Plan/VTE VTE Prophylaxis Ordered?: Yes VS, I&O, 24H, Fishbone Vital Signs/I&O Vital Signs Date Time Temp Pulse Resp B/P (MAP) Pulse Ox O2 Delivery O2 Flow Rate FiO2 11/30/18 06:00 49 146/65 (92) 94 11/30/18 05:00 97.6 11/29/18 16:40 18 Room Air I&O- Last 24 Hours up to 6 AM 11/30/18 06:00 Intake Total 100 ml Balance 100 ml Laboratory Data 24H LABS Laboratory Tests 2 11/29/18 17:09: Immature Granulocyte % (Auto) 0.3, Neutrophils (%) (Auto) 76.4H, Lymphocytes (%) (Auto) 10.8L, Monocytes (%) (Auto) 8.4H, Eosinophils (%) (Auto) 3.7H, Basophils (%) (Auto) 0.4, Neutrophils # (Auto) 5.5, Lymphocytes # (Auto) 0.8L, Monocytes # (Auto) 0.6, Eosinophils # (Auto) 0.3, Basophils # (Auto) 0.0, Nucleated Red Blood Cells % (auto) 0.0, Anion Gap 6L, Glomerular Filtration Rate > 60.0, Calcium Level 7.6L, Phosphorus Level 2.5, Magnesium Level 0.7*L, Total Bilirubin 0.4, Direct Bilirubin < 0.1, Aspartate Amino Transf (AST/SGOT) 13, Alanine Aminotransferase (ALT/SGPT) 12, Alkaline Phosphatase 96, Total Protein 6.2L, Albumin 2.9L, Albumin/Globulin Ratio 0.88L 11/29/18 21:59: 11/29/18 23:04: Magnesium Level 1.7L 11/30/18 06:37: Immature Granulocyte % (Auto) 0.3, Neutrophils (%) (Auto) 73.7H, Lymphocytes (%) (Auto) 11.9L, Monocytes (%) (Auto) 9.4H, Eosinophils (%) (Auto) 4.1H, Basophils (%) (Auto) 0.6, Neutrophils # (Auto) 4.7, Lymphocytes # (Auto) 0.8L, Monocytes # (Auto) 0.6, Eosinophils # (Auto) 0.3, Basophils # (Auto) 0.0, Nucleated Red Blood Cells % (auto) 0.0, Anion Gap 6L, Glomerular Filtration Rate > 60.0, Calcium Level 7.9L, Magnesium Level 1.3L, Whole Blood Ionized Calcium 4.1L CBC/BMP Laboratory Tests 11/29/18 17:09 11/30/18 06:37 Jose Alejandro Rivera MD Nov 30, 2018 09:14
[2018-11-30] MEDS: MAGNESIUM OXIDE 400 MG TAB (MAG-OX) PO SCH ×4 (09:41→21:30)
[2018-11-30] MEDS: VITAMIN D 1,000 INTERNATIONAL UNITS TABLET PO SCH (09:42)
[2018-11-30] MEDS: CALCIUM CARBONATE 500 MG CHEW U/D PO SCH ×3 (09:42→21:30)
[2018-11-30] MEDS: FAMOTIDINE 20 MG TAB PO SCH ×2 (09:42→21:30)
[2018-11-30] MEDS: ATORVASTATIN 20 MG TAB PO SCH (09:42)
[2018-11-30] MEDS: ASPIRIN 81 MG ENTERIC TAB PO SCH (09:42)
[2018-11-30] MEDS: LOSARTAN 25 MG TAB PO SCH (09:44)
[2018-11-30] MEDS ORDERED: SLF 3 ML SYR IV PRN (16:00)
[2018-11-30 16:24] VITALS: BP 124/70
[2018-11-30 20:00] VITALS: BP 141/67
[2018-11-30] MEDS: SLF 3 ML SYR IV SCH (21:30)
[2018-12-01] VITALS: BP 129/61
[2018-12-01] MEDS ORDERED: MAG SULF 1GM/100ML (MAG RUN) 1 GM in IV 1 EA IV ONE ×2 (03:30→06:30)
[2018-12-01 04:00] VITALS: BP 141/89
[2018-12-01 05:55] LABS: BASO % 0.7 % (0.0-1.0); EOS # 0.2 10^3/uL (0.0-0.5); EOS % 3.8 % (0.0-3.0); HEMOGLOBIN 9.4 g/dl (12.0-15.5); LYMPH # 0.6 10^3/uL (1.5-5.0); LYMPH % 9.9 % (24.0-44.0); MEAN CORPUSCULAR HEMOGLOBIN 25.3 pg (27.0-33.0); MEAN CORPUSCULAR HGB CONC 30.3 g/dl (32.0-36.5); MEAN CORPUSCULAR VOLUME 83.6 fl (80.0-96.0); MONO # 0.6 10^3/uL (0.0-0.8); MONO % 9.9 % (0.0-5.0); NEUTROPHILS # 4.4 10^3/uL (1.5-8.5); NEUTROPHILS % 75.5 % (36.0-66.0); PLATELET COUNT, AUTOMATED 194 10^3/uL (150-450); RED BLOOD COUNT 3.71 10^6/uL (4.00-5.40); WHITE BLOOD COUNT 5.8 10^3/uL (4.0-10.0)
[2018-12-01] MEDS: METOPROLOL SUCC *XL* 12.5MG PER 1/2 TAB (TopROL *XL*) PO SCH (06:00)
[2018-12-01 06:14] LABS: BLOOD UREA NITROGEN 10 MG/DL (7-18); CALCIUM LEVEL 8.4 MG/DL (8.8-10.2); CARBON DIOXIDE LEVEL 30 MEQ/L (21-32); CHLORIDE LEVEL 110 MEQ/L (98-107); CREATININE FOR GFR 0.69 MG/DL (0.55-1.30); GLOMERULAR FILTRATION RATE > 60.0 (>32); GLUCOSE, FASTING 105 MG/DL (70-100); MAGNESIUM LEVEL 1.4 MG/DL (1.8-2.4); POTASSIUM SERUM 4.6 MEQ/L (3.5-5.1); SODIUM LEVEL 144 MEQ/L (136-145)
[2018-12-01] MEDS: APIXABAN 2.5 MG TAB (ELIQUIS) PO SCH (06:30)
[2018-12-01] MEDS: SLF 3 ML SYR IV SCH ×2 (06:30→13:00)
[2018-12-01] MEDS: busPIRone 10 MG TAB PO SCH (06:30)
[2018-12-01] MEDS: LEVOTHYROXINE 75MCG TABLET (0.075MG) PO SCH (06:30)
[2018-12-01 08:00] VITALS: BP 124/67
[2018-12-01] MEDS: FUROSEMIDE 40 MG TAB PO SCH (09:00)
[2018-12-01] MEDS ORDERED: FLUBLOK(EGG FREE)(QUAD)INFLUENZA VACC 0.5ML SYRINGE (90682)18YRS&OLDER IM ONE (09:00)
[2018-12-01] MEDS: MAGNESIUM OXIDE 400 MG TAB (MAG-OX) PO SCH ×2 (09:40→12:48)
[2018-12-01] MEDS: ATORVASTATIN 20 MG TAB PO SCH (09:40)
[2018-12-01] MEDS: FAMOTIDINE 20 MG TAB PO SCH (09:40)
[2018-12-01 09:41] VITALS: BP 124/67
[2018-12-01] MEDS: CALCIUM CARBONATE 500 MG CHEW U/D PO SCH (09:41)
[2018-12-01] MEDS: VITAMIN D 1,000 INTERNATIONAL UNITS TABLET PO SCH (09:41)
[2018-12-01] MEDS: LOSARTAN 25 MG TAB PO SCH (09:41)
[2018-12-01] MEDS: ASPIRIN 81 MG ENTERIC TAB PO SCH (09:41)
[2018-12-01] MEDS ORDERED: CALC200T15 PO (11:48)
[2018-12-01] MEDS ORDERED: FAMO20TA PO (11:48)
[2018-12-01] MEDS ORDERED: MAG400TA PO (11:48)
[2018-12-01 12:00] VITALS: BP 128/77
--- NOTE | 2018-12-01 12:17 | DSES ---
DATE OF ADMISSION: 11/29/2018 DATE OF DISCHARGE: BRIEF HISTORY AND PHYSICAL: Patient is an 83-year-old patient of Dr. Herbert with a history of metastatic colorectal cancer and recurrent profound hypomagnesemia thought to be secondary to her panitumumab, last treatment on 11/11/2018. She came to the emergency room as directed by her oncologist in [place] for hypomagnesemia. Magnesium level was 0.7. PAST MEDICAL HISTORY: As per history and physical. 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 Sodium 145, potassium 4.4, BUN 12, creatinine 0.7, glucose 104, magnesium level was 0.7. Chest x-ray showed cardiomegaly and chronic fibrotic changes with no of evidence of acute cardiopulmonary disease. HOSPITAL COURSE: The patient was admitted for hypomagnesemia. She was given three doses of IV magnesium initially, ultimately a total of five doses of IV magnesium during her hospitalization. Her magnesium level on the date of discharge is 1.7. Her oral magnesium and has been increased from 400 twice a day to 400 four times a day, we will need to watch for diarrhea. We also stopped her proton pump inhibitor, as this can interfere with magnesium absorption. She has been switched to Pepcid twice a day. She also has Tums that have been initiated primarily for hypocalcemia, but can be taken on an as needed basis for breakthrough acid reflux.. DISPOSITION: The patient is stable for discharge home. Diet as tolerated. Activity as tolerated. She will followup with Joaquina Romero as scheduled on Wednesday. She will have a mag level drawn on Wednesday morning. She should probably have mag levels checked twice a week. She is instructed to try to get those done early in the morning so that the results can be followed up on and possibly arrange for IV magnesium infusions as an outpatient rather than having to come to the hospital for those. If she gets the results back earlier in the day then we can arrange those infusions. MEDICATIONS: - calcium carbonate 1000 mg twice a day - famotidine 20 mg twice a day - magnesium oxide 400 mg four times a day - Eliquis 2.5 mg twice a day - aspirin 81 mg daily - atorvastatin 40 mg daily - buspirone 10 mg twice a day - vitamin D 2000 international units daily - levothyroxine 75 mcg daily - lorazepam 0.5 mg twice a day as needed for anxiety - losartan 25 mg daily She has IV mag orders, standing order, as needed directed by Leon - metoprolol 12.5 mg twice a day - panitumumab every 2 weeks as per Leon and currently on hold DISCHARGE DIAGNOSES: 1. Hypomagnesemia. 2. Hypocalcemia. 3. Metastatic colon cancer. 4. Atrial fibrillation.
== END 2018-12-01 14:29 | disposition home or self-care (01) | DRG 641 ==
LOC: M ED 16:31 → M ED INP 18:47 → M PCU 11-30 16:12
PROVIDERS: ADMIT Internal Medicine Nephrology; ATTEND Family Medicine
DX: E83.42 Hypomagnesemia (principal); C19 Malignant neoplasm of rectosigmoid junction; C78.7 Secondary malignant neoplasm of liver and intrahepatic bile duct; C79.51 Secondary malignant neoplasm of bone; C78.00 Secondary malignant neoplasm of unspecified lung; I50.42 Chronic combined systolic (congestive) and diastolic (congestive) heart failure; Z79.82 Long term (current) use of aspirin; Z79.899 Other long term (current) drug therapy; Z88.8 Allergy status to other drugs, medicaments and biological substances; I48.91 Unspecified atrial fibrillation; K52.9 Noninfective gastroenteritis and colitis, unspecified; D63.8 Anemia in other chronic diseases classified elsewhere; Z90.49 Acquired absence of other specified parts of digestive tract; I25.10 Atherosclerotic heart disease of native coronary artery without angina pectoris; I25.2 Old myocardial infarction; I25.5 Ischemic cardiomyopathy; Z95.810 Presence of automatic (implantable) cardiac defibrillator; E03.9 Hypothyroidism, unspecified; E78.5 Hyperlipidemia, unspecified; F41.9 Anxiety disorder, unspecified; Z90.79 Acquired absence of other genital organ(s); E66.9 Obesity, unspecified; Z68.31 Body mass index [BMI] 31.0-31.9, adult; I11.0 Hypertensive heart disease with heart failure; E83.51 Hypocalcemia; Z92.21 Personal history of antineoplastic chemotherapy; Z79.01 Long term (current) use of anticoagulants; T36.1X5A Adverse effect of cephalosporins and other beta-lactam antibiotics, initial encounter

== ENCOUNTER 2018-12-07 15:23 | Outpatient (CLI) | payer MEDICARE ==
[~2018-12-07] VITALS: Ht 157.5 cm; Wt 77.2 kg
[2018-12-07 15:30] VITALS: BP 108/58
[2018-12-07] MEDS ORDERED: MAG SULF 1GM/100ML (MAG RUN) SINGLE DOSE IV ONE ×2 (16:00)
[2018-12-07 17:15] VITALS: BP 131/58
== END 2018-12-07 17:15 | disposition home or self-care (01) ==
LOC: M INFU 15:23
PROVIDERS: ATTEND Family Medicine
DX: E83.42 Hypomagnesemia (principal)
CPT/HCPCS: 96365; J3475

== ENCOUNTER → 2018-12-07 | Outpatient (CLI) | payer MEDICARE ==
[~2018-12-07] MED LIST changes: -BISO5TAB14 PO; +BISO5TAB9 PO; +CALC200T15 PO; +FAMO20TA PO; +LORA0.5T11 PO; -LORA0.5T5 PO; +MAG400TA PO; +MAGN400T2 PO
[2018-12-07 08:40] LABS: BASO # 0.1 10^3/uL (0.0-0.2); BASO % 0.8 % (0.0-1.0); EOS # 0.4 10^3/uL (0.0-0.5); EOS % 4.8 % (0.0-3.0); HEMATOCRIT 34.2 % (36.0-47.0); HEMOGLOBIN 10.2 g/dl (12.0-15.5); LYMPH # 0.6 10^3/uL (1.5-5.0); MEAN CORPUSCULAR HEMOGLOBIN 25.1 pg (27.0-33.0); MEAN CORPUSCULAR HGB CONC 29.8 g/dl (32.0-36.5); MEAN CORPUSCULAR VOLUME 84.2 fl (80.0-96.0); MONO # 0.6 10^3/uL (0.0-0.8); MONO % 7.3 % (0.0-5.0); NEUTROPHILS # 5.9 10^3/uL (1.5-8.5); NEUTROPHILS % 78.8 % (36.0-66.0); PLATELET COUNT, AUTOMATED 240 10^3/uL (150-450); RED BLOOD COUNT 4.06 10^6/uL (4.00-5.40); WHITE BLOOD COUNT 7.5 10^3/uL (4.0-10.0)
[2018-12-07 09:14] LABS: ALT/SGPT 14 U/L (12-78); BILIRUBIN,TOTAL 0.5 MG/DL (0.2-1.0); BLOOD UREA NITROGEN 13 MG/DL (7-18); CALCIUM LEVEL 8.9 MG/DL (8.8-10.2); CARBON DIOXIDE LEVEL 27 MEQ/L (21-32); CHLORIDE LEVEL 110 MEQ/L (98-107); CREATININE FOR GFR 0.77 MG/DL (0.55-1.30); GLOMERULAR FILTRATION RATE > 60.0 (>32); GLUCOSE, FASTING 97 MG/DL (70-100); MAGNESIUM LEVEL 1.1 MG/DL (1.8-2.4); POTASSIUM SERUM 5.3 MEQ/L (3.5-5.1); SODIUM LEVEL 142 MEQ/L (136-145); TOTAL PROTEIN 6.5 GM/DL (6.4-8.2)
== END ==
LOC: M LAB 07:54
PROVIDERS: ATTEND Internal Medicine Hematology & Oncology
DX: C18.9 Malignant neoplasm of colon, unspecified (principal)

== ENCOUNTER → 2018-12-07 | Outpatient (CLI) | payer MEDICARE ==
[2018-12-07 08:40] LABS: BASO # 0.1 10^3/uL (0.0-0.2); BASO % 0.7 % (0.0-1.0); EOS # 0.4 10^3/uL (0.0-0.5); EOS % 5.2 % (0.0-3.0); HEMATOCRIT 34.4 % (36.0-47.0); HEMOGLOBIN 10.4 g/dl (12.0-15.5); LYMPH # 0.6 10^3/uL (1.5-5.0); LYMPH % 8.2 % (24.0-44.0); MEAN CORPUSCULAR HEMOGLOBIN 25.7 pg (27.0-33.0); MEAN CORPUSCULAR HGB CONC 30.2 g/dl (32.0-36.5); MEAN CORPUSCULAR VOLUME 85.1 fl (80.0-96.0); MONO # 0.5 10^3/uL (0.0-0.8); NEUTROPHILS # 5.7 10^3/uL (1.5-8.5); NEUTROPHILS % 78.4 % (36.0-66.0); PLATELET COUNT, AUTOMATED 233 10^3/uL (150-450); RED BLOOD COUNT 4.04 10^6/uL (4.00-5.40); WHITE BLOOD COUNT 7.3 10^3/uL (4.0-10.0)
[2018-12-07 09:16] LABS: BLOOD UREA NITROGEN 13 MG/DL (7-18); CALCIUM LEVEL 8.8 MG/DL (8.8-10.2); CARBON DIOXIDE LEVEL 27 MEQ/L (21-32); CHLORIDE LEVEL 110 MEQ/L (98-107); CREATININE FOR GFR 0.75 MG/DL (0.55-1.30); FERRITIN 11 NG/ML (8-252); GLOMERULAR FILTRATION RATE > 60.0 (>32); GLUCOSE, FASTING 98 MG/DL (70-100); IRON (FE) 38 UG/DL (50-170); PERCENT SATURATION 8.5 % (13.2-45.0); PHOSPHORUS LEVEL 3.3 MG/DL (2.5-4.9); POTASSIUM SERUM 5.2 MEQ/L (3.5-5.1); SODIUM LEVEL 141 MEQ/L (136-145); TOTAL IRON BINDING CAPACITY 446 UG/DL (250-450)
[2018-12-07 09:27] LABS: VITAMIN B12 LEVEL 384 PG/ML
== END ==
LOC: M LAB 07:58
PROVIDERS: ATTEND Physician Assistant Medical
DX: C18.9 Malignant neoplasm of colon, unspecified (principal); E83.42 Hypomagnesemia; D63.8 Anemia in other chronic diseases classified elsewhere
CPT/HCPCS: 36415; 80053; 82607; 82728; 82746; 83550; 83735; 85025; 96365; J3475

== ENCOUNTER 2018-12-08 15:08 | Outpatient (CLI) | payer MEDICARE ==
[~2018-12-08] VITALS: Ht 157.5 cm; Wt 77.2 kg
[2018-12-08 15:15] VITALS: BP 148/65
[2018-12-08] MEDS ORDERED: MAG SULF 1GM/100ML (MAG RUN) SINGLE DOSE IV ONE ×2 (16:00)
[2018-12-08 16:45] VITALS: BP 135/58
== END 2018-12-08 16:45 | disposition home or self-care (01) ==
LOC: M INFU 15:08
PROVIDERS: ATTEND Family Medicine
DX: E83.42 Hypomagnesemia (principal); C18.9 Malignant neoplasm of colon, unspecified; Z79.01 Long term (current) use of anticoagulants
CPT/HCPCS: 36415; 80053; 83735; 85025; 85610; 96365; J3475

== ENCOUNTER → 2018-12-08 | Outpatient (CLI) | payer MEDICARE ==
[2018-12-08 08:17] LABS: BASO # 0.1 10^3/uL (0.0-0.2); BASO % 0.7 % (0.0-1.0); EOS # 0.4 10^3/uL (0.0-0.5); EOS % 5.6 % (0.0-3.0); HEMATOCRIT 34.9 % (36.0-47.0); HEMOGLOBIN 10.2 g/dl (12.0-15.5); LYMPH # 0.7 10^3/uL (1.5-5.0); LYMPH % 10.2 % (24.0-44.0); MEAN CORPUSCULAR HEMOGLOBIN 25.1 pg (27.0-33.0); MEAN CORPUSCULAR HGB CONC 29.2 g/dl (32.0-36.5); MONO # 0.6 10^3/uL (0.0-0.8); MONO % 8.3 % (0.0-5.0); NEUTROPHILS # 5.1 10^3/uL (1.5-8.5); NEUTROPHILS % 74.8 % (36.0-66.0); PLATELET COUNT, AUTOMATED 232 10^3/uL (150-450); RED BLOOD COUNT 4.06 10^6/uL (4.00-5.40); WHITE BLOOD COUNT 6.8 10^3/uL (4.0-10.0)
[2018-12-08 08:54] LABS: ALBUMIN 3.2 GM/DL (3.2-5.2); ALT/SGPT 17 U/L (12-78); BILIRUBIN,TOTAL 0.4 MG/DL (0.2-1.0); BLOOD UREA NITROGEN 16 MG/DL (7-18); CALCIUM LEVEL 8.8 MG/DL (8.8-10.2); CARBON DIOXIDE LEVEL 27 MEQ/L (21-32); CHLORIDE LEVEL 110 MEQ/L (98-107); GLOMERULAR FILTRATION RATE > 60.0 (>32); GLUCOSE, FASTING 85 MG/DL (70-100); MAGNESIUM LEVEL 1.3 MG/DL (1.8-2.4); POTASSIUM SERUM 5.7 MEQ/L (3.5-5.1); SODIUM LEVEL 141 MEQ/L (136-145); TOTAL PROTEIN 6.5 GM/DL (6.4-8.2)
== END ==
LOC: M LAB 07:19
PROVIDERS: ATTEND Internal Medicine Hematology & Oncology
DX: C18.9 Malignant neoplasm of colon, unspecified (principal)

== ENCOUNTER → 2018-12-08 | Outpatient (CLI) | payer MEDICARE ==
[2018-12-08 16:27] LABS: INR 1.18; PROTHROMBIN TIME 14.8 SECONDS (11.8-14.0)
== END ==
LOC: M LAB 15:13
PROVIDERS: ATTEND Internal Medicine Hematology & Oncology
DX: C18.9 Malignant neoplasm of colon, unspecified (principal); Z79.01 Long term (current) use of anticoagulants

== ENCOUNTER 2018-12-12 06:44 | Outpatient (CLI) | payer MEDICARE ==
[~2018-12-12 06:44] MED LIST changes: -MAG SULF 1GM/100ML (MAG RUN) SINGLE DOSE IV ONE
[2018-12-12 07:48] LABS: BASO # 0.1 10^3/uL (0.0-0.2); BASO % 0.8 % (0.0-1.0); EOS # 0.4 10^3/uL (0.0-0.5); HEMATOCRIT 35.7 % (36.0-47.0); HEMOGLOBIN 10.6 g/dl (12.0-15.5); LYMPH # 0.7 10^3/uL (1.5-5.0); LYMPH % 9.1 % (24.0-44.0); MEAN CORPUSCULAR HEMOGLOBIN 25.1 pg (27.0-33.0); MEAN CORPUSCULAR HGB CONC 29.7 g/dl (32.0-36.5); MEAN CORPUSCULAR VOLUME 84.6 fl (80.0-96.0); MONO # 0.6 10^3/uL (0.0-0.8); MONO % 7.7 % (0.0-5.0); PLATELET COUNT, AUTOMATED 297 10^3/uL (150-450); RED BLOOD COUNT 4.22 10^6/uL (4.00-5.40); WHITE BLOOD COUNT 7.8 10^3/uL (4.0-10.0)
[2018-12-12 08:06] LABS: ALBUMIN 3.1 GM/DL (3.2-5.2); ALT/SGPT 12 U/L (12-78); BILIRUBIN,TOTAL 0.5 MG/DL (0.2-1.0); BLOOD UREA NITROGEN 12 MG/DL (7-18); CALCIUM LEVEL 8.6 MG/DL (8.8-10.2); CARBON DIOXIDE LEVEL 25 MEQ/L (21-32); CHLORIDE LEVEL 111 MEQ/L (98-107); CREATININE FOR GFR 0.82 MG/DL (0.55-1.30); GLOMERULAR FILTRATION RATE > 60.0 (>32); GLUCOSE, FASTING 98 MG/DL (70-100); MAGNESIUM LEVEL 1.2 MG/DL (1.8-2.4); SODIUM LEVEL 141 MEQ/L (136-145); TOTAL PROTEIN 6.6 GM/DL (6.4-8.2)
== END 2018-12-12 16:45 | disposition home or self-care (01) ==
LOC: M LAB 06:44
PROVIDERS: ATTEND Internal Medicine Hematology & Oncology
DX: C18.9 Malignant neoplasm of colon, unspecified (principal)
CPT/HCPCS: 36415; 80053; 83735; 85025; J3475

== ENCOUNTER → 2018-12-12 | Outpatient (CLI) | payer MEDICARE ==
[~2018-12-12] VITALS: Ht 157.5 cm; Wt 77.2 kg
[~2018-12-12] MED LIST changes: +MAG SULF 1GM/100ML (MAG RUN) SINGLE DOSE IV ONE
[2018-12-12 15:10] VITALS: BP 110/63
[2018-12-12 16:46] VITALS: BP 122/57
== END ==
LOC: M INFU 15:06
PROVIDERS: ATTEND Family Medicine
DX: E83.42 Hypomagnesemia (principal)

== ENCOUNTER 2018-12-14 15:26 | Outpatient (CLI) | payer MEDICARE ==
[~2018-12-14] VITALS: Ht 157.5 cm; Wt 77.2 kg
[2018-12-14 15:45] VITALS: BP 120/62
[2018-12-14] MEDS ORDERED: MAGNESIUM SULFATE 1 GM/100 ML D5W BAG (10MG/ML) (J3475) IV ONE (16:00)
[2018-12-14 17:10] VITALS: BP 123/60
== END 2018-12-14 17:15 | disposition home or self-care (01) ==
LOC: M INFU 15:26
PROVIDERS: ATTEND Family Medicine
DX: E83.42 Hypomagnesemia (principal); C18.9 Malignant neoplasm of colon, unspecified
CPT/HCPCS: 36415; 80053; 83735; 85025; 96365; J3475

== ENCOUNTER → 2018-12-14 | Outpatient (CLI) | payer MEDICARE ==
[2018-12-14 07:26] LABS: BASO % 0.6 % (0.0-1.0); EOS # 0.4 10^3/uL (0.0-0.5); EOS % 5.3 % (0.0-3.0); HEMATOCRIT 36.4 % (36.0-47.0); HEMOGLOBIN 10.6 g/dl (12.0-15.5); LYMPH # 0.8 10^3/uL (1.5-5.0); MEAN CORPUSCULAR HEMOGLOBIN 24.9 pg (27.0-33.0); MEAN CORPUSCULAR HGB CONC 29.1 g/dl (32.0-36.5); MEAN CORPUSCULAR VOLUME 85.6 fl (80.0-96.0); MONO # 0.6 10^3/uL (0.0-0.8); MONO % 8.1 % (0.0-5.0); NEUTROPHILS % 73.6 % (36.0-66.0); PLATELET COUNT, AUTOMATED 291 10^3/uL (150-450); RED BLOOD COUNT 4.25 10^6/uL (4.00-5.40); WHITE BLOOD COUNT 6.8 10^3/uL (4.0-10.0)
[2018-12-14 07:54] LABS: ALT/SGPT 14 U/L (12-78); BILIRUBIN,TOTAL 0.4 MG/DL (0.2-1.0); BLOOD UREA NITROGEN 14 MG/DL (7-18); CALCIUM LEVEL 8.7 MG/DL (8.8-10.2); CARBON DIOXIDE LEVEL 25 MEQ/L (21-32); CHLORIDE LEVEL 111 MEQ/L (98-107); CREATININE FOR GFR 0.87 MG/DL (0.55-1.30); GLOMERULAR FILTRATION RATE > 60.0 (>32); GLUCOSE, FASTING 97 MG/DL (70-100); MAGNESIUM LEVEL 1.3 MG/DL (1.8-2.4); POTASSIUM SERUM 5.3 MEQ/L (3.5-5.1); SODIUM LEVEL 141 MEQ/L (136-145); TOTAL PROTEIN 6.4 GM/DL (6.4-8.2)
== END ==
LOC: M LAB 06:55
PROVIDERS: ATTEND Internal Medicine Hematology & Oncology
DX: C18.9 Malignant neoplasm of colon, unspecified (principal)

== ENCOUNTER → 2018-12-15 | Outpatient (CLI) | payer MEDICARE ==
[~2018-12-15] VITALS: Ht 157.5 cm; Wt 77.2 kg
[~2018-12-15] MED LIST changes: +MAG SULF 1GM/100ML (MAG RUN) SINGLE DOSE IV ONE
[2018-12-15 15:20] VITALS: BP 160/66
[2018-12-15 17:00] VITALS: BP 148/68
== END ==
LOC: M INFU 15:12
PROVIDERS: ATTEND Family Medicine
DX: E83.42 Hypomagnesemia (principal)
CPT/HCPCS: 96365; J3475

== ENCOUNTER → 2018-12-15 | Outpatient (CLI) | payer MEDICARE ==
[~2018-12-15] MED LIST changes: -MAG SULF 1GM/100ML (MAG RUN) SINGLE DOSE IV ONE
[2018-12-15 07:13] LABS: BASO # 0.1 10^3/uL (0.0-0.2); BASO % 0.7 % (0.0-1.0); EOS # 0.4 10^3/uL (0.0-0.5); EOS % 5.5 % (0.0-3.0); HEMATOCRIT 34.6 % (36.0-47.0); HEMOGLOBIN 10.2 g/dl (12.0-15.5); LYMPH # 0.6 10^3/uL (1.5-5.0); LYMPH % 8.4 % (24.0-44.0); MEAN CORPUSCULAR HEMOGLOBIN 25.1 pg (27.0-33.0); MEAN CORPUSCULAR HGB CONC 29.5 g/dl (32.0-36.5); MONO # 0.6 10^3/uL (0.0-0.8); MONO % 8.4 % (0.0-5.0); NEUTROPHILS # 5.8 10^3/uL (1.5-8.5); NEUTROPHILS % 76.7 % (36.0-66.0); PLATELET COUNT, AUTOMATED 292 10^3/uL (150-450); RED BLOOD COUNT 4.07 10^6/uL (4.00-5.40); WHITE BLOOD COUNT 7.5 10^3/uL (4.0-10.0)
[2018-12-15 07:58] LABS: ALT/SGPT 15 U/L (12-78); BILIRUBIN,TOTAL 0.6 MG/DL (0.2-1.0); BLOOD UREA NITROGEN 15 MG/DL (7-18); CALCIUM LEVEL 8.5 MG/DL (8.8-10.2); CARBON DIOXIDE LEVEL 26 MEQ/L (21-32); CHLORIDE LEVEL 110 MEQ/L (98-107); CREATININE FOR GFR 0.85 MG/DL (0.55-1.30); GLOMERULAR FILTRATION RATE > 60.0 (>32); GLUCOSE, FASTING 114 MG/DL (70-100); MAGNESIUM LEVEL 1.3 MG/DL (1.8-2.4); POTASSIUM SERUM 5.2 MEQ/L (3.5-5.1); SODIUM LEVEL 142 MEQ/L (136-145); TOTAL PROTEIN 6.3 GM/DL (6.4-8.2)
== END ==
LOC: M LAB 06:43
PROVIDERS: ATTEND Internal Medicine Hematology & Oncology
DX: C18.9 Malignant neoplasm of colon, unspecified (principal)

== ENCOUNTER 2018-12-19 14:31 | Outpatient (CLI) | payer MEDICARE ==
[~2018-12-19] VITALS: Ht 157.5 cm; Wt 77.2 kg
[2018-12-19 14:40] VITALS: BP 155/68
[2018-12-19] MEDS ORDERED: MAG SULF 1GM/100ML (MAG RUN) SINGLE DOSE IV ONE ×2 (15:00)
[2018-12-19] MEDS ORDERED: SODIUM CHLORIDE 0.9% INJ 10 ML SYR IV PRN (16:00)
[2018-12-19] MEDS ORDERED: SODIUM CHLORIDE 0.9% INJ 10 ML SYR IV ONE (16:00)
[2018-12-19 16:20] VITALS: BP 136/72
== END 2018-12-19 16:20 | disposition home or self-care (01) ==
LOC: M INFU 14:31
PROVIDERS: ATTEND Family Medicine
DX: E83.42 Hypomagnesemia (principal)

== ENCOUNTER → 2018-12-19 | Outpatient (CLI) | payer MEDICARE ==
[2018-12-19 07:26] LABS: BASO # 0.1 10^3/uL (0.0-0.2); BASO % 0.8 % (0.0-1.0); EOS # 0.4 10^3/uL (0.0-0.5); EOS % 5.7 % (0.0-3.0); HEMOGLOBIN 10.8 g/dl (12.0-15.5); LYMPH # 0.6 10^3/uL (1.5-5.0); LYMPH % 10.5 % (24.0-44.0); MEAN CORPUSCULAR HEMOGLOBIN 25.4 pg (27.0-33.0); MEAN CORPUSCULAR HGB CONC 29.2 g/dl (32.0-36.5); MEAN CORPUSCULAR VOLUME 87.1 fl (80.0-96.0); MONO # 0.4 10^3/uL (0.0-0.8); MONO % 6.7 % (0.0-5.0); NEUTROPHILS # 4.6 10^3/uL (1.5-8.5); NEUTROPHILS % 75.6 % (36.0-66.0); PLATELET COUNT, AUTOMATED 263 10^3/uL (150-450); RED BLOOD COUNT 4.25 10^6/uL (4.00-5.40); WHITE BLOOD COUNT 6.1 10^3/uL (4.0-10.0)
[2018-12-19 07:57] LABS: ALT/SGPT 12 U/L (12-78); BILIRUBIN,TOTAL 0.4 MG/DL (0.2-1.0); BLOOD UREA NITROGEN 15 MG/DL (7-18); CALCIUM LEVEL 8.6 MG/DL (8.8-10.2); CARBON DIOXIDE LEVEL 25 MEQ/L (21-32); CHLORIDE LEVEL 114 MEQ/L (98-107); CREATININE FOR GFR 0.75 MG/DL (0.55-1.30); GLOMERULAR FILTRATION RATE > 60.0 (>32); GLUCOSE, FASTING 98 MG/DL (70-100); SODIUM LEVEL 143 MEQ/L (136-145); TOTAL PROTEIN 6.6 GM/DL (6.4-8.2)
== END ==
LOC: M LAB 06:40
PROVIDERS: ATTEND Internal Medicine Hematology & Oncology
DX: C18.9 Malignant neoplasm of colon, unspecified (principal); E83.42 Hypomagnesemia
CPT/HCPCS: 36415; 80053; 83735; 85025; 96365; J3475

== ENCOUNTER 2018-12-21 15:03 | Outpatient (CLI) | payer MEDICARE ==
[~2018-12-21] VITALS: Ht 157.5 cm; Wt 77.2 kg
[~2018-12-21 15:03] MED LIST changes: +MAG SULF 1GM/100ML (MAG RUN) SINGLE DOSE IV ONE; +SODIUM CHLORIDE 0.9% INJ 10 ML SYR IV PRN
[2018-12-21 15:05] VITALS: BP 161/70
[2018-12-21 16:24] VITALS: BP 145/67
[2018-12-22] MEDS ORDERED: SODIUM CHLORIDE 0.9% INJ 10 ML SYR IV SCH (09:00)
== END 2018-12-21 16:25 | disposition home or self-care (01) ==
LOC: M INFU 15:03
PROVIDERS: ATTEND Family Medicine
DX: E83.42 Hypomagnesemia (principal)

== ENCOUNTER → 2018-12-21 | Outpatient (CLI) | payer MEDICARE ==
[2018-12-21 07:32] LABS: BASO % 0.7 % (0.0-1.0); EOS # 0.4 10^3/uL (0.0-0.5); EOS % 7.1 % (0.0-3.0); HEMATOCRIT 35.1 % (36.0-47.0); HEMOGLOBIN 10.4 g/dl (12.0-15.5); LYMPH # 0.7 10^3/uL (1.5-5.0); LYMPH % 10.9 % (24.0-44.0); MEAN CORPUSCULAR HEMOGLOBIN 25.7 pg (27.0-33.0); MEAN CORPUSCULAR HGB CONC 29.6 g/dl (32.0-36.5); MEAN CORPUSCULAR VOLUME 86.7 fl (80.0-96.0); MONO # 0.5 10^3/uL (0.0-0.8); MONO % 7.7 % (0.0-5.0); NEUTROPHILS # 4.5 10^3/uL (1.5-8.5); NEUTROPHILS % 73.3 % (36.0-66.0); PLATELET COUNT, AUTOMATED 238 10^3/uL (150-450); RED BLOOD COUNT 4.05 10^6/uL (4.00-5.40); WHITE BLOOD COUNT 6.1 10^3/uL (4.0-10.0)
[2018-12-21 08:11] LABS: ALT/SGPT 13 U/L (12-78); BILIRUBIN,TOTAL 0.3 MG/DL (0.2-1.0); BLOOD UREA NITROGEN 12 MG/DL (7-18); CALCIUM LEVEL 8.4 MG/DL (8.8-10.2); CARBON DIOXIDE LEVEL 26 MEQ/L (21-32); CHLORIDE LEVEL 115 MEQ/L (98-107); GLOMERULAR FILTRATION RATE > 60.0 (>32); GLUCOSE, FASTING 92 MG/DL (70-100); MAGNESIUM LEVEL 0.9 MG/DL (1.8-2.4); POTASSIUM SERUM 5.4 MEQ/L (3.5-5.1); SODIUM LEVEL 144 MEQ/L (136-145); TOTAL PROTEIN 6.3 GM/DL (6.4-8.2)
== END ==
LOC: M LAB 06:53
PROVIDERS: ATTEND Internal Medicine Hematology & Oncology
DX: C18.9 Malignant neoplasm of colon, unspecified (principal); E83.42 Hypomagnesemia
CPT/HCPCS: 36415; 80053; 83735; 85025; 96365; J3475

== ENCOUNTER 2018-12-22 15:06 | Outpatient (CLI) | payer MEDICARE ==
[~2018-12-22] VITALS: Ht 160 cm; Wt 77.2 kg
[~2018-12-22 15:06] MED LIST changes: +MAG SULF 1GM/100ML (MAG RUN) SINGLE DOSE IV ONE
[2018-12-22 15:10] VITALS: BP 138/64
[2018-12-22 16:45] VITALS: BP 147/65
[2018-12-22] MEDS ORDERED: SODIUM CHLORIDE 0.9% INJ 10 ML SYR IV PRN (16:45)
[2018-12-23] MEDS ORDERED: SODIUM CHLORIDE 0.9% INJ 10 ML SYR IV SCH (09:00)
== END 2018-12-22 16:45 | disposition home or self-care (01) ==
LOC: M INFU 15:06
PROVIDERS: ATTEND Family Medicine
DX: E83.42 Hypomagnesemia (principal)
CPT/HCPCS: 36415; 83735; 96365; J3475

== ENCOUNTER → 2018-12-22 | Outpatient (CLI) | payer MEDICARE ==
[~2018-12-22] MED LIST changes: -MAG SULF 1GM/100ML (MAG RUN) SINGLE DOSE IV ONE; -SODIUM CHLORIDE 0.9% INJ 10 ML SYR IV PRN
== END ==
LOC: M LAB 06:34
PROVIDERS: ATTEND Family Medicine
DX: E83.42 Hypomagnesemia (principal)

== ENCOUNTER 2018-12-26 15:09 | Outpatient (CLI) | payer MEDICARE ==
[~2018-12-26] VITALS: Ht 157.5 cm; Wt 77.2 kg
[2018-12-26 15:15] VITALS: BP 149/65
[2018-12-26] MEDS ORDERED: MAGNESIUM SULFATE 1 GM/100 ML D5W BAG (10MG/ML) (J3475) IV ONE (16:00)
[2018-12-26 16:40] VITALS: BP 131/62
[2018-12-26] MEDS ORDERED: SODIUM CHLORIDE 0.9% INJ 10 ML SYR IV PRN (17:00)
[2018-12-26] MEDS ORDERED: SODIUM CHLORIDE 0.9% INJ 10 ML SYR IV ONE (17:00)
== END 2018-12-26 16:40 | disposition home or self-care (01) ==
LOC: M INFU 15:09
PROVIDERS: ATTEND Family Medicine
DX: E83.42 Hypomagnesemia (principal)

== ENCOUNTER → 2018-12-26 | Outpatient (CLI) | payer MEDICARE ==
[~2018-12-26] MED LIST changes: -MAG SULF 1GM/100ML (MAG RUN) SINGLE DOSE IV ONE
== END ==
LOC: M LAB 06:33
PROVIDERS: ATTEND Family Medicine
DX: E83.42 Hypomagnesemia (principal)
CPT/HCPCS: 36415; 83735; 96374; J3475

== ENCOUNTER 2018-12-28 14:45 | Outpatient (CLI) | payer MEDICARE ==
[~2018-12-28] VITALS: Ht 157.5 cm; Wt 77.2 kg
[2018-12-28 14:45] VITALS: BP 164/80
[~2018-12-28 14:45] MED LIST changes: +SODIUM CHLORIDE 0.9% INJ 10 ML SYR IV SCH
[2018-12-28] MEDS ORDERED: MAG SULF 1GM/100ML (MAG RUN) SINGLE DOSE IV ONE ×2 (15:00)
[2018-12-28 17:00] VITALS: BP 142/72
== END 2018-12-28 17:00 | disposition home or self-care (01) ==
LOC: M INFU 14:45
PROVIDERS: ATTEND Family Medicine
DX: E83.42 Hypomagnesemia (principal)

== ENCOUNTER → 2018-12-28 | Outpatient (CLI) | payer MEDICARE ==
[2018-12-28 16:00] LABS: BASO % 0.7 % (0.0-1.0); EOS # 0.3 10^3/uL (0.0-0.5); EOS % 5.2 % (0.0-3.0); HEMATOCRIT 34.3 % (36.0-47.0); LYMPH # 0.7 10^3/uL (1.5-5.0); MEAN CORPUSCULAR HEMOGLOBIN 25.8 pg (27.0-33.0); MEAN CORPUSCULAR HGB CONC 29.2 g/dl (32.0-36.5); MEAN CORPUSCULAR VOLUME 88.6 fl (80.0-96.0); MONO # 0.5 10^3/uL (0.0-0.8); MONO % 8.8 % (0.0-5.0); NEUTROPHILS # 4.4 10^3/uL (1.5-8.5); PLATELET COUNT, AUTOMATED 197 10^3/uL (150-450); RED BLOOD COUNT 3.87 10^6/uL (4.00-5.40); WHITE BLOOD COUNT 5.9 10^3/uL (4.0-10.0)
[2018-12-28 16:47] LABS: ALBUMIN 2.8 GM/DL (3.2-5.2); ALT/SGPT 15 U/L (12-78); BILIRUBIN,TOTAL 0.3 MG/DL (0.2-1.0); BLOOD UREA NITROGEN 13 MG/DL (7-18); CARBON DIOXIDE LEVEL 26 MEQ/L (21-32); CHLORIDE LEVEL 113 MEQ/L (98-107); CREATININE FOR GFR 0.79 MG/DL (0.55-1.30); GLOMERULAR FILTRATION RATE > 60.0 (>32); GLUCOSE, FASTING 115 MG/DL (70-100); POTASSIUM SERUM 4.2 MEQ/L (3.5-5.1); SODIUM LEVEL 145 MEQ/L (136-145); TOTAL PROTEIN 5.8 GM/DL (6.4-8.2)
== END ==
LOC: M LAB 15:27
PROVIDERS: ATTEND Internal Medicine Hematology & Oncology
DX: C18.9 Malignant neoplasm of colon, unspecified (principal); E83.42 Hypomagnesemia
CPT/HCPCS: 80053; 83735; 85025; 96365; J3475

== ENCOUNTER → 2018-12-29 | Outpatient (CLI) | payer MEDICARE ==
[~2018-12-29] MED LIST changes: -SODIUM CHLORIDE 0.9% INJ 10 ML SYR IV SCH
== END ==
LOC: M INFU 15:05
PROVIDERS: ATTEND Family Medicine
DX: E83.42 Hypomagnesemia (principal); Z53.9 Procedure and treatment not carried out, unspecified reason

== ENCOUNTER → 2019-01-02 | Outpatient (CLI) | payer MEDICARE ==
[~2019-01-02] VITALS: Ht 157.5 cm; Wt 77.2 kg
[~2019-01-02] MED LIST changes: +MAGNESIUM SULFATE 1 GM/100 ML D5W BAG (10MG/ML) (J3475) As Ordered ONE; +SODIUM CHLORIDE 0.9% INJ 10 ML SYR IV ONE
[2019-01-02 15:13] VITALS: BP 158/71
[2019-01-02] MEDS: MAG SULF 1GM/100ML (MAG RUN) X 2 DOSES (2GM TOTAL) IV SCH ×4 (15:49→16:45)
[2019-01-02 18:00] VITALS: BP 154/70
== END ==
LOC: M INFU 15:01
PROVIDERS: ATTEND Family Medicine
DX: E83.42 Hypomagnesemia (principal); Z88.8 Allergy status to other drugs, medicaments and biological substances
CPT/HCPCS: 36415; 83735; 96365; 96366; J3475

== ENCOUNTER 2019-01-04 15:24 | Outpatient (CLI) | payer MEDICARE ==
[~2019-01-04] VITALS: Ht 157.5 cm; Wt 77.2 kg
[~2019-01-04 15:24] MED LIST changes: -MAGNESIUM SULFATE 1 GM/100 ML D5W BAG (10MG/ML) (J3475) As Ordered ONE; -SODIUM CHLORIDE 0.9% INJ 10 ML SYR IV ONE; +SODIUM CHLORIDE 0.9% INJ 10 ML SYR IV SCH
[2019-01-04 15:40] VITALS: BP 137/65
[2019-01-04] MEDS ORDERED: MAG SULF 1GM/100ML (MAG RUN) X 2 DOSES (2GM TOTAL) IV SCH ×2 (17:00)
[2019-01-04 18:22] VITALS: BP 143/63
== END 2019-01-10 18:20 | disposition home or self-care (01) ==
LOC: M INFU 15:24
PROVIDERS: ATTEND Family Medicine
DX: E83.42 Hypomagnesemia (principal); Z88.8 Allergy status to other drugs, medicaments and biological substances
CPT/HCPCS: 36591; 83735; 96365; J3475

== ENCOUNTER 2019-01-06 11:07 | Outpatient (CLI) | payer MEDICARE ==
[~2019-01-06] VITALS: Ht 157.5 cm; Wt 77.2 kg
[~2019-01-06 11:07] MED LIST changes: -SODIUM CHLORIDE 0.9% INJ 10 ML SYR IV SCH
[2019-01-06 11:40] VITALS: BP 135/63
[2019-01-06] MEDS ORDERED: MAG SULF 1GM/100ML (MAG RUN) 1 GM in IV 1 EA IV ONE (12:00)
[2019-01-06] MEDS: MAG SULF 1GM/100ML (MAG RUN) 1 GM in IV 1 EA IV SCH ×2 (12:38→13:41)
[2019-01-06] MEDS ORDERED: SODIUM CHLORIDE 0.9% INJ 10 ML SYR IV PRN (14:15)
[2019-01-06 14:48] VITALS: BP 135/60
== END 2019-01-06 15:00 | disposition home or self-care (01) ==
LOC: M OPCLI4PV 11:07 → M MSPAV 11:31 → M OPCLI4PV 15:00
PROVIDERS: ATTEND Family Medicine
DX: E83.42 Hypomagnesemia (principal); Z88.8 Allergy status to other drugs, medicaments and biological substances
CPT/HCPCS: 36415; 83735; 96374; J3475

== ENCOUNTER 2019-01-09 15:11 | Outpatient (CLI) | payer MEDICARE ==
[~2019-01-09] VITALS: Ht 157.5 cm; Wt 77.2 kg
[~2019-01-09 15:11] MED LIST changes: +SODIUM CHLORIDE 0.9% INJ 10 ML SYR IV SCH
[2019-01-09] MEDS ORDERED: MAGNESIUM SULFATE 1 GM/100 ML D5W BAG (10MG/ML) (J3475) As Ordered ONE (15:50)
[2019-01-09 15:53] VITALS: BP 169/74
[2019-01-09] MEDS ORDERED: MAG SULF 1GM/100ML (MAG RUN) X 2 DOSES (2GM TOTAL) IV SCH ×2 (16:30)
[2019-01-09 18:20] VITALS: BP 168/69
== END 2019-01-09 18:25 | disposition home or self-care (01) ==
LOC: M INFU 15:11
PROVIDERS: ATTEND Family Medicine
DX: E83.42 Hypomagnesemia (principal); Z88.8 Allergy status to other drugs, medicaments and biological substances
CPT/HCPCS: 36592; 83735; 96365; 96366; J3475

== ENCOUNTER 2019-01-11 15:09 | Outpatient (CLI) | payer MEDICARE ==
[~2019-01-11] VITALS: Ht 157.5 cm; Wt 77.2 kg
[~2019-01-11 15:09] MED LIST changes: +SODIUM CHLORIDE 0.9% INJ 10 ML SYR IV SCH
[2019-01-11 15:15] VITALS: BP 152/70
[2019-01-11] MEDS ORDERED: MAGNESIUM SULFATE 1 GM/100 ML D5W BAG (10MG/ML) (J3475) As Ordered ONE (16:11)
[2019-01-11] MEDS: MAG SULF 1GM/100ML (MAG RUN) X 2 DOSES (2GM TOTAL) IV SCH ×4 (16:24→17:22)
[2019-01-11 18:20] VITALS: BP 152/68
== END 2019-01-11 18:25 | disposition home or self-care (01) ==
LOC: M INFU 15:09
PROVIDERS: ATTEND Family Medicine
DX: E83.42 Hypomagnesemia (principal); Z88.8 Allergy status to other drugs, medicaments and biological substances

== ENCOUNTER → 2019-01-11 | Outpatient (CLI) | payer MEDICARE ==
[~2019-01-11] MED LIST changes: -SODIUM CHLORIDE 0.9% INJ 10 ML SYR IV SCH
[2019-01-11 16:13] LABS: BASO % 0.5 % (0.0-1.0); EOS # 0.3 10^3/uL (0.0-0.5); EOS % 3.7 % (0.0-3.0); HEMATOCRIT 36.2 % (36.0-47.0); HEMOGLOBIN 10.6 g/dl (12.0-15.5); LYMPH # 0.7 10^3/uL (1.5-5.0); LYMPH % 9.2 % (24.0-44.0); MEAN CORPUSCULAR HEMOGLOBIN 26.2 pg (27.0-33.0); MEAN CORPUSCULAR HGB CONC 29.3 g/dl (32.0-36.5); MEAN CORPUSCULAR VOLUME 89.4 fl (80.0-96.0); MONO # 0.6 10^3/uL (0.0-0.8); MONO % 7.9 % (0.0-5.0); NEUTROPHILS # 5.9 10^3/uL (1.5-8.5); NEUTROPHILS % 78.2 % (36.0-66.0); PLATELET COUNT, AUTOMATED 237 10^3/uL (150-450); RED BLOOD COUNT 4.05 10^6/uL (4.00-5.40); WHITE BLOOD COUNT 7.6 10^3/uL (4.0-10.0)
[2019-01-11 16:32] LABS: ALBUMIN 2.6 GM/DL (3.2-5.2); ALT/SGPT 15 U/L (12-78); BILIRUBIN,TOTAL 0.2 MG/DL (0.2-1.0); BLOOD UREA NITROGEN 12 MG/DL (7-18); CALCIUM LEVEL 7.5 MG/DL (8.8-10.2); CARBON DIOXIDE LEVEL 25 MEQ/L (21-32); CHLORIDE LEVEL 112 MEQ/L (98-107); CREATININE FOR GFR 0.73 MG/DL (0.55-1.30); GLOMERULAR FILTRATION RATE > 60.0 (>32); GLUCOSE, FASTING 137 MG/DL (70-100); MAGNESIUM LEVEL 0.9 MG/DL (1.8-2.4); SODIUM LEVEL 145 MEQ/L (136-145); TOTAL PROTEIN 5.8 GM/DL (6.4-8.2)
== END ==
LOC: M LAB 15:12
PROVIDERS: ATTEND Internal Medicine Hematology & Oncology
DX: C18.9 Malignant neoplasm of colon, unspecified (principal); E83.42 Hypomagnesemia; Z88.8 Allergy status to other drugs, medicaments and biological substances
CPT/HCPCS: 36591; 80053; 83735; 85025; 96365; 96366; J3475

== ENCOUNTER 2019-01-16 14:02 | Outpatient (CLI) | payer MEDICARE ==
[~2019-01-16] VITALS: Ht 157.5 cm; Wt 77.2 kg
[2019-01-16 14:00] VITALS: BP 141/63
[~2019-01-16 14:02] MED LIST changes: -GASTROGRAFIN SOLUTION 30ML (Q9963) As Ordered ONE; -ISOVUE-370 76% 100ML VIAL (Q9967) As Ordered ONE
[2019-01-16] MEDS: MAG SULF 1GM/100ML (MAG RUN) X 2 DOSES (2GM TOTAL) IV SCH ×4 (14:16→15:57)
[2019-01-16] MEDS ORDERED: SODIUM CHLORIDE 0.9% INJ 10 ML SYR IV ONE (15:00)
[2019-01-16 16:11] VITALS: BP 154/71
== END 2019-01-16 16:15 | disposition home or self-care (01) ==
LOC: M INFU 14:02
PROVIDERS: ATTEND Family Medicine
DX: E83.42 Hypomagnesemia (principal)

== ENCOUNTER → 2019-01-16 | Outpatient (CLI) | payer MEDICARE ==
[~2019-01-16] MED LIST changes: +GASTROGRAFIN SOLUTION 30ML (Q9963) As Ordered ONE; +ISOVUE-370 76% 100ML VIAL (Q9967) As Ordered ONE; -SODIUM CHLORIDE 0.9% INJ 10 ML SYR IV SCH
--- NOTE | 2019-01-16 15:09 | REP ---
CT CHEST WITH IV CONTRAST: HISTORY: Metastatic colon cancer. Comparison chest CT studies are reviewed from October 26, 2018, October 06, 2017, and February 02, 2006. CT CONTRAST DOSE: No 100 mL of intravenous Isovue [address] FINDINGS: There is a very small amount of right pleural fluid which is similar to previous study. A common bile duct stent and pneumobilia are noted. Hiatal hernia is again seen. There is a small pericardial effusion again noted. This is unchanged. No hilar or mediastinal mass or adenopathy is develop. Right-sided [id number] and left sided pacemaker is visible. There are multiple noncalcified small pulmonary nodules. The largest of these is in the right upper lobe as noted previously. These are unchanged in number when compared with the October 06, 2017 prior study and unchanged in size when compared with the more recent study of October 26, 2018. No new nodule or increase in size of any of the previously noted nodules is detected. Bone window settings show no bony destructive lesion. IMPRESSION: Stable intrathoracic findings. No evidence to suggest progression. Electronically Signed by Jose J Avelar MD 01/16/2019 06:00 P
--- NOTE | 2019-01-16 15:25 | REP ---
CT ABDOMEN AND PELVIS WITHOUT AND WITH INTRAVENOUS CONTRAST AND WITH ORAL CONTRAST. HISTORY: Metastatic colon cancer. Comparison CT studies are reviewed the most recent which is from October 06, 2017 and the most remote September 14, 2013. CT CONTRAST DOSE: 100 mL of intravenous Isovue 370. CT FINDINGS: Preliminary digital pipe line walker radiograph demonstrates a pacemaker in the heart, scattered pelvic and right upper quadrant clips, and a wall stent in the common bile duct region of the right upper quadrant. There is a tiny sliver of pleural fluid on the right. No adrenal lesion is seen. There are simple cysts in each kidney, upper pole on the right and lower pole on the left. Pneumobilia is seen related to the common bile duct stent which is in good position. The previously noted right lobe low density mass lesion in the liver is decreased in size today and contains some dystrophic calcifications. No new liver mass lesion is seen. No splenic lesion is observed. There is no evidence of upper abdominal adenopathy. A hiatal hernia is noted. The kidneys enhance symmetrically. There appears to be a large descending duodenal diverticulum. No periaortic adenopathy is seen. An anastomosis is seen in the rectosigmoid colon post left colectomy. Small and large bowel loops are unremarkable. No abdominal wall defect is observed. No bony destructive lesion is seen. There is central canal stenosis in the lower thoracic spine at T12-L1 due to what appears to be a large calcified disc protrusion projecting to the right of midline. This is unchanged from the 2013 study. IMPRESSION: Improvement noted in the low density lesion in the right lobe of the liver. No new evidence of metastasis or recurrence. Electronically Signed by Jose J Avelar MD 01/16/2019 06:01 P
== END ==
LOC: M RAD 12:02
DX: C18.9 Malignant neoplasm of colon, unspecified (principal); E83.42 Hypomagnesemia; Z88.8 Allergy status to other drugs, medicaments and biological substances
CPT/HCPCS: 36415; 71260; 74178; 83735; 96365; 96366; J3475; Q9963; Q9967

== ENCOUNTER 2019-01-18 15:17 | Outpatient (CLI) | payer MEDICARE ==
[~2019-01-18] VITALS: Ht 157.5 cm; Wt 77.2 kg
[~2019-01-18 15:17] MED LIST changes: +SODIUM CHLORIDE 0.9% INJ 10 ML SYR IV SCH
[2019-01-18 15:30] VITALS: BP 140/59
[2019-01-18] MEDS: MAG SULF 1GM/100ML (MAG RUN) X 2 DOSES (2GM TOTAL) IV SCH ×4 (15:45→17:04)
[2019-01-18] MEDS ORDERED: MAGNESIUM SULFATE 1 GM/100 ML D5W BAG (10MG/ML) (J3475) As Ordered ONE ×2 (15:52→16:43)
[2019-01-18 18:00] VITALS: BP 153/71
== END 2019-01-18 18:00 | disposition home or self-care (01) ==
LOC: M INFU 15:17
PROVIDERS: ATTEND Family Medicine
DX: E83.42 Hypomagnesemia (principal); Z88.8 Allergy status to other drugs, medicaments and biological substances

== ENCOUNTER 2019-01-20 15:07 | Outpatient (CLI) | payer MEDICARE ==
[~2019-01-20] VITALS: Ht 157.5 cm; Wt 77.2 kg
[2019-01-20 15:10] VITALS: BP 158/77
[2019-01-20] MEDS ORDERED: MAGNESIUM SULFATE 1 GM/100 ML D5W BAG (10MG/ML) (J3475) As Ordered ONE (15:52)
[2019-01-20] MEDS ORDERED: MAG SULF 1GM/100ML (MAG RUN) SINGLE DOSE IV ONE ×2 (16:15)
[2019-01-20 17:15] VITALS: BP 148/62
== END 2019-01-20 17:15 | disposition home or self-care (01) ==
LOC: M INFU 15:07
PROVIDERS: ATTEND Family Medicine
DX: E83.42 Hypomagnesemia (principal)
CPT/HCPCS: 36415; 83735; 96365; J3475

== ENCOUNTER 2019-01-23 15:21 | Outpatient (CLI) | payer MEDICARE ==
[~2019-01-23] VITALS: Ht 157.5 cm; Wt 77.2 kg
[2019-01-23 15:30] VITALS: BP 157/66
[2019-01-23] MEDS ORDERED: MAGNESIUM SULFATE 1 GM/100 ML D5W BAG (10MG/ML) (J3475) As Ordered ONE (16:31)
[2019-01-23] MEDS: MAG SULF 1GM/100ML (MAG RUN) X 2 DOSES (2GM TOTAL) IV SCH ×4 (16:39→17:26)
[2019-01-23 18:54] VITALS: BP 143/82
== END 2019-01-23 18:50 | disposition home or self-care (01) ==
LOC: M INFU 15:21
PROVIDERS: ATTEND Family Medicine
DX: E83.42 Hypomagnesemia (principal); Z88.8 Allergy status to other drugs, medicaments and biological substances
CPT/HCPCS: 36415; 83735; 96365; 96366; J3475

== ENCOUNTER 2019-01-25 15:01 | Outpatient (CLI) | payer MEDICARE ==
[~2019-01-25] VITALS: Ht 157.5 cm; Wt 77.2 kg
[~2019-01-25 15:01] MED LIST changes: -FERR1TAB8 PO; -MAGN400T3 PO; +SODIUM CHLORIDE 0.9% INJ 10 ML SYR IV SCH; -VITA100066 PO
[2019-01-25 15:42] VITALS: BP 153/70
[2019-01-25] MEDS: MAG SULF 1GM/100ML (MAG RUN) X 2 DOSES (2GM TOTAL) IV SCH ×4 (16:22→16:43)
[2019-01-25 18:25] VITALS: BP 150/70
== END 2019-01-25 18:25 | disposition home or self-care (01) ==
LOC: M INFU 15:01
PROVIDERS: ATTEND Family Medicine
DX: E83.42 Hypomagnesemia (principal); Z88.8 Allergy status to other drugs, medicaments and biological substances

== ENCOUNTER → 2019-01-25 | Outpatient (CLI) | payer MEDICARE ==
[~2019-01-25] MED LIST changes: +FERR1TAB8 PO; +MAGN400T3 PO; -SODIUM CHLORIDE 0.9% INJ 10 ML SYR IV SCH; +VITA100066 PO
[2019-01-25 15:33] LABS: BASO # 0.1 10^3/uL (0.0-0.2); BASO % 0.6 % (0.0-1.0); EOS # 0.4 10^3/uL (0.0-0.5); EOS % 4.5 % (0.0-3.0); HEMATOCRIT 37.6 % (36.0-47.0); LYMPH # 0.7 10^3/uL (1.5-5.0); MEAN CORPUSCULAR HEMOGLOBIN 26.2 pg (27.0-33.0); MEAN CORPUSCULAR HGB CONC 29.3 g/dl (32.0-36.5); MEAN CORPUSCULAR VOLUME 89.5 fl (80.0-96.0); MONO # 0.8 10^3/uL (0.0-0.8); MONO % 9.5 % (0.0-5.0); NEUTROPHILS # 6.1 10^3/uL (1.5-8.5); PLATELET COUNT, AUTOMATED 287 10^3/uL (150-450)
[2019-01-25 16:01] LABS: ALBUMIN 2.8 GM/DL (3.2-5.2); BILIRUBIN,TOTAL 0.4 MG/DL (0.2-1.0); CALCIUM LEVEL 7.9 MG/DL (8.8-10.2); CREATININE FOR GFR 1.05 MG/DL (0.55-1.30); GLOMERULAR FILTRATION RATE 53.3 (>32); MAGNESIUM LEVEL 1.1 MG/DL (1.8-2.4); POTASSIUM SERUM 4.5 MEQ/L (3.5-5.1); TOTAL PROTEIN 6.2 GM/DL (6.4-8.2)
== END ==
LOC: M LAB 15:06
PROVIDERS: ATTEND Internal Medicine Hematology & Oncology
DX: C18.9 Malignant neoplasm of colon, unspecified (principal); E83.42 Hypomagnesemia; Z88.8 Allergy status to other drugs, medicaments and biological substances
CPT/HCPCS: 36591; 80053; 83735; 85025; 96365; 96366; J3475

== ENCOUNTER 2019-01-30 12:30 | Outpatient (CLI) | payer MEDICARE ==
[~2019-01-30] VITALS: Ht 157.5 cm; Wt 77.2 kg
[2019-01-30 12:40] VITALS: BP 145/64
[2019-01-30] MEDS ORDERED: MAGNESIUM SULFATE 1 GM/100 ML D5W BAG (10MG/ML) (J3475) As Ordered ONE (13:34)
[2019-01-30] MEDS: MAG SULF 1GM/100ML (MAG RUN) X 2 DOSES (2GM TOTAL) IV SCH ×4 (13:47→14:25)
[2019-01-30] MEDS ORDERED: OMEP40CA97 PO (15:11)
[2019-01-30 16:20] VITALS: BP 171/72
== END 2019-01-30 16:20 | disposition home or self-care (01) ==
LOC: M INFU 12:30
PROVIDERS: ATTEND Family Medicine
DX: E83.42 Hypomagnesemia (principal); Z88.8 Allergy status to other drugs, medicaments and biological substances
CPT/HCPCS: 36591; 83735; 96365; 96366; J3475

== ENCOUNTER 2019-01-31 07:41 | Outpatient (CLI) | payer MEDICARE ==
[~2019-01-31] VITALS: Ht 157.5 cm; Wt 77.2 kg
[2019-01-31 07:40] VITALS: BP 159/66
[~2019-01-31 07:41] MED LIST changes: -SODIUM CHLORIDE 0.9% INJ 10 ML SYR IV SCH
[2019-01-31] MEDS ORDERED: MAG SULF 1GM/100ML (MAG RUN) SINGLE DOSE IV ONE ×4 (08:45→10:00)
[2019-01-31] MEDS ORDERED: SODIUM CHLORIDE 0.9% INJ 10 ML SYR IV SCH (09:00)
[2019-01-31 10:45] VITALS: BP 157/69
== END 2019-01-31 10:45 | disposition home or self-care (01) ==
LOC: M INFU 07:41
PROVIDERS: ATTEND Family Medicine
DX: E83.42 Hypomagnesemia (principal); Z88.8 Allergy status to other drugs, medicaments and biological substances
CPT/HCPCS: 36591; 83735; 96365; 96366; J3475

== ENCOUNTER 2019-02-03 14:46 | Outpatient (CLI) | payer MEDICARE ==
[~2019-02-03] VITALS: Ht 157.5 cm; Wt 77.2 kg
[~2019-02-03 14:46] MED LIST changes: +SODIUM CHLORIDE 0.9% INJ 10 ML SYR IV SCH
[2019-02-03 14:50] VITALS: BP 159/67
[2019-02-03] MEDS ORDERED: MAG SULF 1GM/100ML (MAG RUN) SINGLE DOSE IV ONE ×2 (15:00)
[2019-02-03] MEDS: MAG SULF 1GM/100ML (MAG RUN) SINGLE DOSE IV ONE ×6 (16:00→16:48)
[2019-02-03 17:15] VITALS: BP 129/65
== END 2019-02-03 17:15 | disposition home or self-care (01) ==
LOC: M INFU 14:46
PROVIDERS: ATTEND Family Medicine
DX: E83.42 Hypomagnesemia (principal); Z88.8 Allergy status to other drugs, medicaments and biological substances
CPT/HCPCS: 36415; 83735; 96365; 96366; J3475

== ENCOUNTER 2019-02-06 12:44 | Inpatient (IN) | payer MEDICARE ==
[~2019-02-06] VITALS: Ht 157.5 cm; Wt 77.7 kg
[~2019-02-06 12:44] MED LIST changes: -SODIUM CHLORIDE 0.9% INJ 10 ML SYR IV SCH
[2019-02-06 14:23] LABS: BASO % 0.5 % (0.0-1.0); EOS # 0.3 10^3/uL (0.0-0.5); EOS % 4.4 % (0.0-3.0); HEMATOCRIT 34.3 % (36.0-47.0); HEMOGLOBIN 10.3 g/dl (12.0-15.5); LYMPH # 0.6 10^3/uL (1.5-5.0); LYMPH % 8.2 % (24.0-44.0); MEAN CORPUSCULAR HEMOGLOBIN 26.3 pg (27.0-33.0); MEAN CORPUSCULAR VOLUME 87.7 fl (80.0-96.0); MONO # 0.6 10^3/uL (0.0-0.8); MONO % 7.5 % (0.0-5.0); NEUTROPHILS # 5.8 10^3/uL (1.5-8.5); NEUTROPHILS % 79.1 % (36.0-66.0); PLATELET COUNT, AUTOMATED 230 10^3/uL (150-450); RED BLOOD COUNT 3.91 10^6/uL (4.00-5.40); WHITE BLOOD COUNT 7.3 10^3/uL (4.0-10.0)
[2019-02-06 14:37] LABS: INR 1.41
[2019-02-06 14:38] LABS: PARTIAL THROMBOPLASTIN TIME 45.2 SECONDS (25.0-38.4)
--- NOTE | 2019-02-06 14:43 | REP ---
Clinical: chest pain . Comparison: 11/29/2018 . Findings: The mediastinum and cardiac silhouette are stable and within normal limits for portable technique. Pacemaker in stable position. [id number] with tip in the right atrium now noted. The lung gregg demonstrate chronic changes without acute consolidation, effusion, or pneumothorax. Skeletal structures are intact. Impression: No acute cardiopulmonary process appreciated. Electronically Signed by Jethro King MD 02/06/2019 02:35 P
[2019-02-06 15:29] LABS: BLOOD UREA NITROGEN 12 MG/DL (7-18); CARBON DIOXIDE LEVEL 25 MEQ/L (21-32); CHLORIDE LEVEL 112 MEQ/L (98-107); CREATININE FOR GFR 0.74 MG/DL (0.55-1.30); GLOMERULAR FILTRATION RATE > 60.0 (>32); GLUCOSE, FASTING 147 MG/DL (70-100); POTASSIUM SERUM 4.4 MEQ/L (3.5-5.1); SODIUM LEVEL 143 MEQ/L (136-145)
[2019-02-06 15:30] LABS: ALT/SGPT 13 U/L (12-78); BILIRUBIN,DIRECT < 0.1 MG/DL (0.0-0.2); BILIRUBIN,TOTAL 0.3 MG/DL (0.2-1.0); CALCIUM LEVEL 7.3 MG/DL (8.8-10.2); CK-MB VALUE MASS 2.5 NG/ML (<3.6); CPK CREATINE PHOSPHOKINASE 75 U/L (26-192); MB/CK RELATIVE INDEX 3.33 (< OR =4)
[2019-02-06 15:31] LABS: ALBUMIN 2.6 GM/DL (3.2-5.2); TOTAL PROTEIN 5.8 GM/DL (6.4-8.2)
[2019-02-06 15:32] LABS: NT-PRO BNP 1256 PG/ML (<450); TROPONIN I < 0.02 NG/ML (< 0.10)
[2019-02-06 15:35] LABS: MAGNESIUM LEVEL 0.9 MG/DL (1.8-2.4)
[2019-02-06] MEDS ORDERED: ISOVUE-370 76% 100ML VIAL (Q9967) As Ordered ONE (15:44)
[2019-02-06] MEDS ORDERED: MAG SULF 1GM/100ML (MAG RUN) 1 GM in IV 1 EA IV ONE ×2 (15:45→17:00)
[2019-02-06] MEDS ORDERED: FUROSEMIDE 20 MG/2 ML VIAL (J1940) IV ONE (15:45)
[2019-02-06 15:55] LABS: FREE T4 1.24 NG/DL (0.76-1.46)
[2019-02-06 15:56] LABS: TRIGLYCERIDES LEVEL 126 MG/DL (<150)
[2019-02-06 15:57] LABS: CHOLESTEROL LEVEL 84 MG/DL (<200); CHOLESTEROL RISK RATIO 2.545 (<5); HDL CHOLESTEROL 33 MG/DL (>40); LDL CHOLESTEROL 25.8 MG/DL (<100); NON-HDL-C 51 MG/DL
[2019-02-06] MEDS ORDERED: MAGN400T3 PO (16:06)
[2019-02-06] MEDS ORDERED: FERR1TAB8 PO (16:06)
[2019-02-06] MEDS ORDERED: VITA100066 PO (16:06)
--- NOTE | 2019-02-06 16:36 | REP ---
Clinical: Acute chest pain and shortness of breath. Technique: Axial contrast enhanced images from the thoracic inlet to the upper abdomen using 100 ml Isovue 370 intravenous contrast material with coronal and sagittal re-formations. Findings: Satisfactory enhancement of the pulmonary vasculature is achieved and no filling defects are identified to suggest pulmonary embolus. Thoracic aorta is normal caliber without aneurysm or dissection. Cardiomegaly is appreciate without pericardial effusion. Mild/moderate bibasilar atelectasis and small pleural effusions noted along with minimal lingular atelectasis. Limited upper abdomen demonstrates pneumobilia and evidence for biliary stent. Impression: 1. No evidence for pulmonary embolus. 2. Bibasilar and lingular atelectasis with small pleural effusions. 3. Cardiomegaly. Electronically Signed by Jethro King MD 02/06/2019 04:27 P
--- NOTE | 2019-02-06 16:41 | REP ---
Clinical: Left lower quadrant pain. Technique: Axial contrast enhanced images from the lung bases to the pubic symphysis using 100 ml Isovue 370 intravenous contrast material with coronal and sagittal re-formations. Comparison: 01/16/2019. Findings: Lung bases demonstrate small pleural effusions, bibasilar and lingular atelectasis along with cardiomegaly. Significant relatively stable pneumobilia is again appreciated along with biliary stent spanning the common bile duct to the duodenum. Chronic calcifications along the medial right hepatic lobe again noted. Spleen, pancreas, bilateral adrenal glands and kidneys are normal / stable. Renal cortical atrophic changes and bilateral renal cysts noted without perinephric stranding or hydronephrosis. The enteric system is without obstruction or acute inflammatory process. Moderate hiatal hernia noted at the gastroesophageal junction. Pelvis demonstrates normal bladder and evidence for prior hysterectomy. No ascites. No free air. No adenopathy. Abdominal aorta without aneurysm or dissection. Osseous structures demonstrate degenerative changes without focal abnormality. Impression: 1. No obvious acute abdominopelvic pathology appreciated. 2. No ascites. No adenopathy. No focal inflammatory changes. 3. Chronic stable findings including moderate hiatal hernia, renal cortical atrophic change and bilateral simple renal cysts, and chronic calcifications in the medial right hepatic lobe. 4. Pneumobilia and CBD stent unchanged. Electronically Signed by Jethro King MD 02/06/2019 04:33 P
--- NOTE | 2019-02-06 17:47 | HPEPDOC ---
General Date of Admission 02/06/19 Date of Service: Feb 06, 2019 Chief Complaint The patient is a 84-year-old female admitted with a reason for visit of Chest Wall Pain. Source: Patient, Family, RN/, Old records History of Present Illness 83 year old female with metastatic colorectal cancer with h/o recurrent profound hypomagnesemia though to be due to panitumumab who [facility] presents to the ED with complaints of recurrent chest pains since 11 am this morning. The chest pain is multiple episodes each lasting about 10 secs, sharp going across the left breast would be severe enough to cause her to catche her breath and then it goes away. It is about 5/10 in intensity. In the ED she had a full work up with CT angio of chest, Ct of the abdomen pelvis with contrast , labs and xray. Work up showed profound hypomagnesemia of 0.9 and small bilateral pleural effusions and some bibasilar atelectasis at the left base and cardiomegaly. She was admitted for concerns of Systolic CHF exacerbation. CT angio of Chest: Cardiomegaly is appreciate without pericardial effusion. Mild/moderate bibasilar atelectasis and small pleural effusions noted along with minimal lingular atelectasis. Limited upper abdomen demonstrates pneumobilia and evidence for biliary stent. CT abdomen with IV contrast 1. No obvious acute abdominopelvic pathology appreciated. 2. No ascites. No adenopathy. No focal inflammatory changes. 3. Chronic stable findings including moderate hiatal hernia, renal cortical atrophic change and bilateral simple renal cysts, and chronic calcifications in the medial right hepatic lobe. 4. Pneumobilia and CBD stent unchanged. Home Medications Scheduled Apixaban (Eliquis) 2.5 Mg Tab, 2.5 MG PO BID, (Reported) TAKES 0800/1500 SAMPLE FROM Aspirin (Aspirin EC) 81 Mg Tab, 81 MG PO DAILY, (Reported) Atorvastatin Calcium (Atorvastatin Calcium) 40 Mg Tab, 40 MG PO DAILY, ( Reported) Buspirone HCl (Buspirone HCl) 10 Mg Tab, 10 MG PO BID, (Reported) TAKES 0800/1500 Cholecalciferol (Vitamin D3) (Vitamin D3) 1,000 Unit Tablet, 2,000 UNIT PO DAILY, (Reported) Ferrous Sulfate (Ferrous Sulfate) 325 Mg Tablet, 325 MG PO DAILY, (Reported) Levothyroxine Sodium (Levothyroxine Sodium) 75 Mcg Tab, 75 MCG PO DAILY, (Reported) Losartan Potassium (Losartan Potassium) 25 Mg Tablet, 25 MG PO DAILY, (Reported) Magnesium Oxide (Magnesium Oxide) 400 Mg Tablet, 400 MG PO QID, (Reported) Magnesium Sulfate/D5w (Magnesium Sulf 1 G/100 ml-D5w) 1 Gm/100 Ml Piggyback, 1 GM IV 3XW, (Reported) WED/WED/WED Metoprolol Succinate (Metoprolol Succinate) 25 Mg Tab, 12.5 MG PO BID, (Reported) TAKES 0800/1500 Omeprazole (Omeprazole) 40 Mg Capsule.dr, 40 MG PO DAILY, (Reported) Panitumumab (Vectibix) 100 Mg/5 Ml Vial, 100 MG IV Q2WK, (Reported) INFUSION GIVEN IN [facility] EVERY OTHER WEDNESDAY Scheduled PRN Nitroglycerin (Nitrostat) 0.4 Mg Subl, 0.4 MG SL NITRO PRN for CHEST PAIN, (Reported) Allergies Coded Allergies: albuterol (Verified Allergy, Severe, Shortness of breath, 05/04/18) ipratropium (Verified Allergy, Severe, Shortness of breath, 05/04/18) Past Medical History Medical History Persistent hypomagnesemia, felt to be secondary to panitumumab (an EGFRi). CAD-- 02/2013 ANTERIOR STEMI RESULTING IN ISCHEMIC CARDIOMYOPATHY AND PERICARDIAL EFFUSION 06/2013 PERICARDIAL WINDOW FOR PERICARDIAL EFFUSION 02/2013 CATH [facility] WITH B[facility] IN LAD; CATH 03/25 SHOWED DISTAL LAD DISEASE, NOT PCI-AMENABLE; NST AT [facility] 02/25: EF 30%, MINIMAL REVERSIBILTY IN LAD DISTRIBUTION Chronic Systolic CHF EF 30-35% / Ischemic Cardiomyopathy / s/p ICD & pacemaker placement Paroxysmal Atrial fibrillation. chronic Diarrhea, in part related to magnesium. 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 No adjuvant therapy. 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 0/3 nodes. hypothyroid hyperlipidemia anxiety Hiatal hernia Left foot drop, peroneal nerve palsy, mild Spinal stenosis Diaphragmatic hernia H/O Gastritis and Peptic ulcer disease Stricture and stenosis of esophagus BPPV, Meniere's disease Generalized osteoarthritis diverticulosis BILIARY STONES, S/P ERCP/STENT 03/26;CBD STONE, COULD NOT BE RETREIVED BY ERCP, WAS STENTED AGAIN 09/25 Surgical History s/p hysterectomy s/p cholecystectomy s/p partial colectomy Family History CAD, Cancer (esophageal, pancreatic) Social History * Smoker: Denies Alcohol: Denies Drugs: denies A-FIB/CHADSVASC A-FIB History Current/History of A-Fib/PAF?: No Review of Systems Constitutional: Denies: Chills, Fever, Night Sweats Eyes: Denies: Pain, Vision change ENT: Denies: Head Aches, Ear Pain, Dysphagia Skin: Denies: Rash, Lesions, Breakdown Pulmonary: Denies: Dyspnea, Cough Cardiovascular: Reports: Chest Pain, Edema (left leg) Gastrointestinal: Reports: Diarrhea (intermittent); Denies: Nausea, Vomiting, Abdominal Pain Genitourinary: Denies: Dysuria, Frequency, Incontinence, Retention Hematologic: Denies: Bruising, Bleeding Excessively Musculoskeletal: Denies: Neck Pain, Back Pain, Joint Pain, Muscle Pain, Spasms Neurological: Denies: Weakness, Numbness, Change in speech, Confusion Psych: Reports: Anxiety Physical Examination General Exam: Positive: Alert, No Acute Distress Eye Exam: Positive: PERRLA, Conjunctiva & lids normal, EOMI; Negative: Sclera icteric ENT Exam: Positive: Atraumatic, Mucous membr. moist/pink, Pharynx Normal Neck Exam: Positive: Supple; Negative: JVD, thyromegaly Chest Exam: Positive: Clear to auscultation, Normal air movement Heart Exam: Positive: Rate Normal, Regular Rhythm, Normal S1, Normal S2; Negative: Murmurs, Rubs Telemetry: Positive: No significant arrhythmia Abdomen Exam: Positive: Normal bowel sounds, Soft; Negative: Tenderness, Hepatospenomegaly Extremity Exam: Positive: Edema (in [facility] left leg 1+), Normal pulses; Negative: Clubbing, Cyanosis Skin Exam: Positive: Nl turgor and temperature; Negative: Breakdown, Lesion Neuro Exam: Positive: Normal Speech, Strength at 5/5 X4 ext, Normal Tone Vital Signs Vital Signs Date Time Temp Pulse Resp B/P (MAP) Pulse Ox O2 Delivery O2 Flow Rate FiO2 02/06/19 15:16 56 18 159/93 (115) 98 Nasal Cannula 2.0 02/06/19 12:45 98.6 Laboratory Data Labs 24H Laboratory Tests 2 02/06/19 14:08: Lactic Acid Level 1.7 02/06/19 14:10: Immature Granulocyte % (Auto) 0.3, Neutrophils (%) (Auto) 79.1H, Lymphocytes (%) (Auto) 8.2L, Monocytes (%) (Auto) 7.5H, Eosinophils (%) (Auto) 4.4H, Basophils (%) (Auto) 0.5, Neutrophils # (Auto) 5.8, Lymphocytes # (Auto) 0.6L, Monocytes # (Auto) 0.6, Eosinophils # (Auto) 0.3, Basophils # (Auto) 0.0, Nucleated Red Blood Cells % (auto) 0.0, Prothrombin Time 17.0H, Prothromb Time International Ratio 1.41, Activated Partial Thromboplast Time 45.2H, Anion Gap 6L, Glomerular Filtration Rate > 60.0, Calcium Level 7.3L, Magnesium Level 0.9*L, Total Bilirubin 0.3, Direct Bilirubin < 0.1, Aspartate Amino Transf (AST/SGOT) 22, Alanine Aminotransferase (ALT/SGPT) 13, Alkaline Phosphatase 95, Total Creatine Kinase 75, Creatine Kinase MB 2.5, Creatine Kinase MB Relative Index 3.33, Tropo alysa I < 0.02, VF-Ihe-F-Type Natriuretic Peptide 1256H, Total Protein 5.8L, Albumin 2.6L, Albumin/Globulin Ratio 0.81L, Triglycerides Level 126, Total Cholesterol 84, LDL Cholesterol 25.8, Non-HDL Cholesterol (LDL + VLDL) 51, Total HDL Cholesterol 33L, Cholesterol/HDL Ratio 2.545, Thyroid Stimulating Hormone (TSH) 2.980, Free Thyroxine 1.24 CBC/BMP Laboratory Tests 02/06/19 14:10 Microbiology Microbiology 02/06/19 Blood Culture, Received Pending 02/06/19 Blood Culture, Received Pending 02/06/19 Respiratory Virus Panel (PCR) ([facility]) - Final, Complete Assessment/Plan 83 year old female with metastatic colorectal cancer with h/o recurrent profound hypomagnesemia though to be due to panitumumab who get magnesium infusions in [facility] infusion unit presents to the ED with complaints of recurrent chest pains si nce 11 am this morning. The chest pain is multiple episodes each lasting about 10 secs, sharp going across the left breast would be severe enough to cause her to catche her breath and then it goes away. It is about 5/10 in intensity. In the ED she had a full work up with CT angio of chest, Ct of the abdomen pelvis with contrast , labs and xray. Work up showed profound hypomagnesemia of 0.9 and small bilateral pleural effusions and some bibasilar atelectasis at the left base and cardiomegaly. She was admitted for concerns of Systolic CHF exacerbation. Chest pain atypical However in view of CAD / AMI/stents in the past need to rule out ACS. will recheck cardiac markers. repeat EKG may be musculoskeletal Systolic CHF exacerbation received a dose of lasix in the ED also received magnesium supplementation ECHO 07/2018- NORMAL LV SIZE AND WALL THICKNESS WITH AKINESIA AND DYSKINESIS OF DISTAL HALF OF VENTRICULAR SEPTUM EF 35%. MILD RV HYPERTROPHY cardiac markers are negative will recheck in 8 hours from the first. continue lasix iv Severe hypomagnesemia will replace IV x 2 then recheck and replace as needed continue oral magnesium Paroxysmal fib will continue metoprolol and eliquis Hypertension will continue losartan and metoprolol Anxiety will continue buspirone Peptic ulcer disease/gastritis/ hiatal hernia/ esophageal stricture continue PPI Hypothyroid synthroid HLD statin Plan / VTE VTE Prophylaxis Ordered?: Yes HAI BAXTER MD Feb 06, 2019 17:47
[2019-02-06 18:45] VITALS: BP 167/84
--- NOTE | 2019-02-06 19:23 | ECGEPIP ---
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
[2019-02-06] MEDS: SODIUM CHLORIDE 0.9% INJ 10 ML SYR IV PRN ×2 (19:50→21:50)
[2019-02-06] MEDS ORDERED: METOPROLOL SUCC *XL* 12.5MG PER 1/2 TAB (TopROL *XL*) PO SCH (21:00)
[2019-02-06] MEDS: APIXABAN 2.5 MG TAB (ELIQUIS) PO SCH (21:53)
[2019-02-06] MEDS: busPIRone 10 MG TAB PO SCH (21:53)
[2019-02-06] MEDS: diphenhydrAMINE 25 MG CAP PO PRN (21:53)
[2019-02-06] MEDS: MAGNESIUM OXIDE 400 MG TAB (MAG-OX) PO SCH (21:54)
[2019-02-06 22:00] VITALS: BP 133/59
[2019-02-06 22:37] LABS: CK-MB VALUE MASS 2.6 NG/ML (<3.6); CPK CREATINE PHOSPHOKINASE 80 U/L (26-192); MAGNESIUM LEVEL 1.2 MG/DL (1.8-2.4); MB/CK RELATIVE INDEX 3.25 (< OR =4); TROPONIN I < 0.02 NG/ML (< 0.10)
[2019-02-07] MEDS ORDERED: PILL CUTTER 1 EACH XX PRN (03:15)
[2019-02-07] MEDS: LEVOTHYROXINE 75MCG TABLET (0.075MG) PO SCH (05:57)
[2019-02-07] MEDS: SODIUM CHLORIDE 0.9% INJ 10 ML SYR IV PRN ×2 (05:58→17:03)
[2019-02-07 06:00] VITALS: BP 147/73
[2019-02-07 06:21] LABS: BASO % 0.5 % (0.0-1.0); EOS # 0.3 10^3/uL (0.0-0.5); EOS % 5.4 % (0.0-3.0); HEMATOCRIT 34.3 % (36.0-47.0); HEMOGLOBIN 10.3 g/dl (12.0-15.5); LYMPH # 0.7 10^3/uL (1.5-5.0); MEAN CORPUSCULAR HEMOGLOBIN 26.3 pg (27.0-33.0); MEAN CORPUSCULAR VOLUME 87.7 fl (80.0-96.0); MONO # 0.6 10^3/uL (0.0-0.8); MONO % 9.7 % (0.0-5.0); NEUTROPHILS # 4.5 10^3/uL (1.5-8.5); NEUTROPHILS % 73.2 % (36.0-66.0); PLATELET COUNT, AUTOMATED 228 10^3/uL (150-450); RED BLOOD COUNT 3.91 10^6/uL (4.00-5.40); WHITE BLOOD COUNT 6.1 10^3/uL (4.0-10.0)
[2019-02-07 06:49] LABS: BLOOD UREA NITROGEN 10 MG/DL (7-18); CALCIUM LEVEL 7.8 MG/DL (8.8-10.2); CARBON DIOXIDE LEVEL 29 MEQ/L (21-32); CHLORIDE LEVEL 109 MEQ/L (98-107); CPK CREATINE PHOSPHOKINASE 73 U/L (26-192); CREATININE FOR GFR 0.71 MG/DL (0.55-1.30); GLOMERULAR FILTRATION RATE > 60.0 (>32); GLUCOSE, FASTING 96 MG/DL (70-100); MAGNESIUM LEVEL 1.3 MG/DL (1.8-2.4); MB/CK RELATIVE INDEX 2.74 (< OR =4); PHOSPHORUS LEVEL 3.2 MG/DL (2.5-4.9); POTASSIUM SERUM 4.1 MEQ/L (3.5-5.1); SODIUM LEVEL 145 MEQ/L (136-145); TROPONIN I < 0.02 NG/ML (< 0.10)
[2019-02-07] MEDS ORDERED: FUROSEMIDE 40 MG/4 ML VIAL (J1940) IV SCH (09:00)
[2019-02-07] MEDS: ATORVASTATIN 20 MG TAB PO SCH (09:14)
[2019-02-07] MEDS: busPIRone 10 MG TAB PO SCH ×2 (09:14→20:13)
[2019-02-07] MEDS: OMEPRAZOLE 20 MG CAP PO SCH (09:14)
[2019-02-07] MEDS: ASPIRIN 81 MG ENTERIC TAB PO SCH (09:14)
[2019-02-07] MEDS: METOPROLOL SUCC *XL* 12.5MG PER 1/2 TAB (TopROL *XL*) PO SCH ×2 (09:14→20:29)
[2019-02-07] MEDS: MAGNESIUM OXIDE 400 MG TAB (MAG-OX) PO SCH ×4 (09:15→20:14)
[2019-02-07] MEDS: APIXABAN 2.5 MG TAB (ELIQUIS) PO SCH ×2 (09:15→20:13)
[2019-02-07] MEDS: LOSARTAN 25 MG TAB PO SCH (09:15)
--- NOTE | 2019-02-07 12:34 | IPNPDOC ---
Subjective Date Seen The patient was seen on 02/07/19. Subjective Chief Complaint/HPI Rare intermittent Left sided stabbing chest pain - less frequnet. Less SOB. No further orthopnea Constitutional: Denies: Chills, Fever Pulmonary: Denies: Dyspnea, Cough Cardiovascular: Reports: Chest Pain (see above); Denies: Palpitations, Orthopnea, Paroxysmal Noc. Dyspnea, Edema Gastrointestinal: Denies: Nausea, Vomiting, Abdominal Pain, Diarrhea, Constipation Objective Physical Examination General Exam: Positive: Alert, No Acute Distress Chest Exam: Positive: Clear to auscultation, Normal air movement, Other (non- tender left chest - ); Negative: Rales, Rhonchi, Wheezing Heart Exam: Positive: Rate Normal, Regular Rhythm, Normal S1, Normal S2; Negative: Murmurs, Rubs Telemetry: Positive: No significant arrhythmia Abdomen Exam: Positive: Normal bowel sounds, Soft; Negative: Tenderness, Hepatospenomegaly Extremity Exam: Negative: Clubbing, Cyanosis, Edema Neuro Exam: Positive: Normal Speech Psych Exam: Positive: Mental status NL Assessment /Plan Problems (1) Acute on chronic systolic CHF (congestive heart failure) Response to Treatment: Improving Problem Text: Clinically improved Hold further IV Lasix until assessed in am (2) Hypomagnesemia Status: Acute Problem Text: Give Further IV mag today (3) Atypical chest pain Response to Treatment: Improving Problem Text: improving [facility] ruled out (4) Metastatic colon cancer to liver Status: Chronic (5) Atrial fibrillation Status: Chronic Response to Treatment: Stable Plan/VTE VTE Prophylaxis Ordered?: Yes (Eliquis) Disposition Probable d/c in am if mag normalized VS, I&O, 24H, Fishbone Vital Signs/I&O Vital Signs Date Time Temp Pulse Resp B/P (MAP) Pulse Ox O2 Delivery O2 Flow Rate FiO2 02/07/19 09:15 147/73 02/07/19 09:14 59 02/07/19 06:00 97.0 20 96 Room Air 02/06/19 17:00 2.0 I&O- Last 24 Hours up to 6 AM 02/07/19 06:00 Intake Total 440 ml Output Total 700 ml Balance -260 ml Laboratory Data 24H LABS Laboratory Tests 2 02/06/19 14:08: Lactic Acid Level 1.7 02/06/19 14:10: Immature Granulocyte % (Auto) 0.3, Neutrophils (%) (Auto) 79.1H, Lymphocytes (%) (Auto) 8.2L, Monocytes (%) (Auto) 7.5H, Eosinophils (%) (Auto) 4.4H, Basophils (%) (Auto) 0.5, Neutrophils # (Auto) 5.8, Lymphocytes # (Auto) 0.6L, Monocytes # (Auto) 0.6, Eosinophils # (Auto) 0.3, Basophils # (Auto) 0.0, Nucleated Red Blood Cells % (auto) 0.0, Prothrombin Time 17.0H, Prothromb Time International Ratio 1.41, Activated Partial Thromboplast Time 45.2H, Anion Gap 6L, Glomerular Filtration Rate > 60.0, Calcium Level 7.3L, Magnesium Level 0.9*L, Total Bilirubin 0.3, Direct Bilirubin < 0.1, Aspartate Amino Transf (AST/SGOT) 22, Alanine Aminotransferase (ALT/SGPT) 13, Alkaline Phosphatase 95, Total Creatine Kinase 75, Creatine Kinase MB 2.5, Creatine Kinase MB Relative Index 3.33, Troponin I < 0.02, HT-Drt-S-Type Natriuretic Peptide 1256H, Total Protein 5.8L, Albumin 2.6L, Albumin/Globulin Ratio 0.81L, Triglycerides Level 126, Total Cholesterol 84, LDL Cholesterol 25.8, Non-HDL Cholesterol (LDL + VLDL) 51, Total HDL Cholesterol 33L, Cholesterol/HDL Ratio 2.545, Thyroid Stimulating Hormone (TSH) 2.980, Free Thyroxine 1.24 02/06/19 20:07: Urine Color COLORLESS, Urine Appearance CLEAR, Urine pH 7.0, Urine Specific [place] 1.013, Urine Protein NEGATIVE, Urine Glucose (UA) NEGATIVE, Urine Ketones NEGATIVE, Urine Blood NEGATIVE, Urine Nitrite NEGATIVE, Urine Bilirubin NEGATIVE, Urine Urobilinogen 0.2, Urine Leukocyte Esterase TRACEH, Urine WBC (Auto) 3, Urine RBC (Auto) 2, Urine Hyaline Casts (Auto) 0, Urine Bacteria (Auto) NEGATIVE, Urine Squamous Epithelial Cells 0, Urine Sperm (Auto) 02/06/19 21:47: Magnesium Level 1.2L, Total Creatine Kinase 80, Creatine Kinase MB 2.6, Creatine Kinase MB Relative Index 3.25, Troponin I < 0.02 02/07/19 06:04: Immature Granulocyte % (Auto) 0.2, Neutrophils (%) (Auto) 73.2H, Lymphocytes (%) (Auto) 11.0L, Monocytes (%) (Auto) 9.7H, Eosinophils (%) (Auto) 5.4H, Basophils (%) (Auto) 0.5, Neutrophils # (Auto) 4.5, Lymphocytes # (Auto) 0.7L, Monocytes # (Auto) 0.6, Eosinophils # (Auto) 0.3, Basophils # (Auto) 0.0, Nucleated Red Blood Cells % (auto) 0.0, Anion Gap 7L, Glomerular Filtration Rate > 60.0, Calcium Level 7.8L, Phosphorus Level 3.2, Magnesium Level 1.3L, Total Creatine Kinase 73, Creatine Kinase MB 2.0, Creatine Kinase MB Relative Index 2.74, Troponin I < 0.02 CBC/BMP Laboratory Tests 02/06/19 14:10 02/07/19 06:04 Microbiology Microbiology 02/06/19 Urine Culture, Received Pending 02/06/19 Blood Culture, Received Pending 02/06/19 Blood Culture, Received Pending 02/06/19 Respiratory Virus Panel (PCR) ([facility]) - Final, Complete SOL CALVILLO PA-C Feb 07, 2019 12:33
[2019-02-07] MEDS: MAG SULF 1GM/100ML (MAG RUN) 1 GM in IV 1 EA IV SCH ×2 (12:43→14:07)
[2019-02-07 14:00] VITALS: BP 103/52
[2019-02-07] MEDS: diphenhydrAMINE 25 MG CAP PO PRN (16:56)
[2019-02-07 20:29] VITALS: BP 133/67
[2019-02-07 22:00] VITALS: BP 106/66
[2019-02-08 06:00] VITALS: BP 109/68
[2019-02-08] MEDS: LEVOTHYROXINE 75MCG TABLET (0.075MG) PO SCH (06:00)
[2019-02-08] MEDS: SODIUM CHLORIDE 0.9% INJ 10 ML SYR IV PRN (06:01)
[2019-02-08 06:22] LABS: BASO % 0.7 % (0.0-1.0); EOS # 0.4 10^3/uL (0.0-0.5); EOS % 6.4 % (0.0-3.0); HEMATOCRIT 36.1 % (36.0-47.0); HEMOGLOBIN 10.6 g/dl (12.0-15.5); LYMPH # 0.8 10^3/uL (1.5-5.0); LYMPH % 14.5 % (24.0-44.0); MEAN CORPUSCULAR HEMOGLOBIN 25.7 pg (27.0-33.0); MEAN CORPUSCULAR HGB CONC 29.4 g/dl (32.0-36.5); MEAN CORPUSCULAR VOLUME 87.6 fl (80.0-96.0); MONO # 0.5 10^3/uL (0.0-0.8); MONO % 9.9 % (0.0-5.0); NEUTROPHILS # 3.7 10^3/uL (1.5-8.5); NEUTROPHILS % 68.3 % (36.0-66.0); PLATELET COUNT, AUTOMATED 227 10^3/uL (150-450); RED BLOOD COUNT 4.12 10^6/uL (4.00-5.40); WHITE BLOOD COUNT 5.4 10^3/uL (4.0-10.0)
[2019-02-08 07:50] LABS: BLOOD UREA NITROGEN 13 MG/DL (7-18); CALCIUM LEVEL 8.4 MG/DL (8.8-10.2); CARBON DIOXIDE LEVEL 28 MEQ/L (21-32); CHLORIDE LEVEL 108 MEQ/L (98-107); CREATININE FOR GFR 0.81 MG/DL (0.55-1.30); GLOMERULAR FILTRATION RATE > 60.0 (>32); GLUCOSE, FASTING 101 MG/DL (70-100); MAGNESIUM LEVEL 1.5 MG/DL (1.8-2.4); POTASSIUM SERUM 4.6 MEQ/L (3.5-5.1); SODIUM LEVEL 144 MEQ/L (136-145)
[2019-02-08] MEDS: OMEPRAZOLE 20 MG CAP PO SCH (08:51)
[2019-02-08] MEDS: MAG SULF 1GM/100ML (MAG RUN) 1 GM in IV 1 EA IV SCH ×2 (08:51→09:58)
[2019-02-08] MEDS: busPIRone 10 MG TAB PO SCH (08:51)
[2019-02-08] MEDS: APIXABAN 2.5 MG TAB (ELIQUIS) PO SCH (08:51)
[2019-02-08] MEDS: ASPIRIN 81 MG ENTERIC TAB PO SCH (08:51)
[2019-02-08] MEDS: ATORVASTATIN 20 MG TAB PO SCH (08:51)
[2019-02-08] MEDS: LOSARTAN 25 MG TAB PO SCH (08:52)
[2019-02-08] MEDS: MAGNESIUM OXIDE 400 MG TAB (MAG-OX) PO SCH ×2 (08:52→12:26)
--- NOTE | 2019-02-08 19:31 | DSES ---
DATE OF ADMISSION: 02/06/2019 DATE OF DISCHARGE: 02/08/2019 PRINCIPAL DIAGNOSIS: Congestive heart failure. SECONDARY DIAGNOSES: 1. Severe hypomagnesemia secondary to chemotherapy. 2. Metastatic colon cancer with liver metastases, under active chemotherapy. HOSPITAL COURSE: Jennie Zendejas was admitted with congestive heart failure. See details in history and physical of admission. HOSPITAL COURSE: She was admitted to a medical bed, gently diuresed. Hypomagnesemia resolved. She had chest pain that seemed chest wall in origin. Today she is walking in the room with her walker and feels ready to go home. Feels back to her baseline status. There is no dyspnea, and she would like to get home for New Year's. PHYSICAL EXAMINATION: Afebrile, vital signs are stable, 100/68. No jugular venous distention (JVD). Lungs clear. Heart regular rhythm. Left chest wall tenderness to palpate. Abdomen soft, nontender. No masses. No peripheral edema. LABORATORY DATA: White count 5.4, hemoglobin 10.6, platelets 227. Sodium 144, potassium 4.6, BUN 13, creatinine 0.8. Magnesium 1.5 (two magnesium runs given today). DISPOSITION: Patient is discharged home in improved and stable condition. She will followup in our office in a week. Her activity is as tolerated. Continue with no-added salt diet. She is on a regimen where she has her magnesium level checked three times a week, and we can give her magnesium infusion (the dose based upon the degree of hypomagnesemia), which is secondary to her chemotherapeutic agent), so she will continue this regimen. Otherwise, she will continue on the same medications she was taking before admission: - Eliquis 2.5 mg twice a day - aspirin 81 mg daily - atorvastatin 40 mg daily - BuSpar 10 mg twice a day - vitamin D 2000 units daily - ferrous sulfate 325 mg daily - levothyroxine 75 mcg daily - losartan 25 mg daily - magnesium 400 mg four times a day - magnesium IV Wednesday, Wednesday, Wednesday, dosing based on her magnesium level - metoprolol succinate 12.5 mg twice a day - Nitrostat as needed - omeprazole 40 mg daily - her chemotherapeutic agents At the time of this dictation, no pending labs.
== END 2019-02-08 13:29 | disposition home or self-care (01) | DRG 292 ==
LOC: M ED 12:44 → M ED INP 17:34 → M MSPAV 18:36
PROVIDERS: ADMIT Internal Medicine Nephrology; ATTEND Family Medicine
DX: I11.0 Hypertensive heart disease with heart failure (principal); C19 Malignant neoplasm of rectosigmoid junction; C78.7 Secondary malignant neoplasm of liver and intrahepatic bile duct; C78.00 Secondary malignant neoplasm of unspecified lung; I50.23 Acute on chronic systolic (congestive) heart failure; E83.42 Hypomagnesemia; T45.1X5A Adverse effect of antineoplastic and immunosuppressive drugs, initial encounter; I25.5 Ischemic cardiomyopathy; I48.0 Paroxysmal atrial fibrillation; K52.9 Noninfective gastroenteritis and colitis, unspecified; D63.8 Anemia in other chronic diseases classified elsewhere; E03.9 Hypothyroidism, unspecified; E78.5 Hyperlipidemia, unspecified; R07.89 Other chest pain; F41.9 Anxiety disorder, unspecified; K44.9 Diaphragmatic hernia without obstruction or gangrene; M21.372 Foot drop, left foot; G57.32 Lesion of lateral popliteal nerve, left lower limb; M15.0 Primary generalized (osteo)arthritis; Z90.49 Acquired absence of other specified parts of digestive tract; Z88.8 Allergy status to other drugs, medicaments and biological substances; Z95.0 Presence of cardiac pacemaker; Z79.01 Long term (current) use of anticoagulants; Z79.82 Long term (current) use of aspirin; Z79.899 Other long term (current) drug therapy

== ENCOUNTER 2019-02-09 12:23 | Outpatient (CLI) | payer MEDICARE ==
[~2019-02-09] VITALS: Ht 157.5 cm; Wt 80.9 kg
[~2019-02-09 12:23] MED LIST changes: +FERR1TAB8 PO; +MAGN400T3 PO; +SODIUM CHLORIDE 0.9% INJ 10 ML SYR IV SCH; +VITA100066 PO
[2019-02-09 12:30] VITALS: BP 154/66
[2019-02-09] MEDS ORDERED: MAG SULF 1GM/100ML (MAG RUN) SINGLE DOSE IV ONE ×4 (12:45→14:15)
[2019-02-09 15:00] VITALS: BP 145/65
== END 2019-02-09 15:00 | disposition home or self-care (01) ==
LOC: M INFU 12:23
PROVIDERS: ATTEND Family Medicine
DX: E83.42 Hypomagnesemia (principal); Z88.8 Allergy status to other drugs, medicaments and biological substances; Z88.9 Allergy status to unspecified drugs, medicaments and biological substances; Z79.82 Long term (current) use of aspirin; Z79.899 Other long term (current) drug therapy
CPT/HCPCS: 83735; 96360; 96365; 96366; J3475

== ENCOUNTER 2019-02-10 15:08 | Outpatient (CLI) | payer MEDICARE ==
[~2019-02-10] VITALS: Ht 157.5 cm; Wt 77.2 kg
[~2019-02-10 15:08] MED LIST changes: -SODIUM CHLORIDE 0.9% INJ 10 ML SYR IV SCH
[2019-02-10 15:30] VITALS: BP 132/72
[2019-02-10] MEDS ORDERED: MAGNESIUM SULFATE 1 GM/100 ML D5W BAG (10MG/ML) (J3475) As Ordered ONE (15:41)
[2019-02-10] MEDS ORDERED: MAG SULF 1GM/100ML (MAG RUN) SINGLE DOSE IV ONE ×2 (16:15)
[2019-02-10] MEDS ORDERED: SODIUM CHLORIDE 0.9% INJ 10 ML SYR IV PRN (16:15)
[2019-02-10 16:56] VITALS: BP 142/58
[2019-02-11] MEDS ORDERED: SODIUM CHLORIDE 0.9% INJ 10 ML SYR IV SCH (09:00)
== END 2019-02-10 17:00 | disposition home or self-care (01) ==
LOC: M INFU 15:08
PROVIDERS: ATTEND Family Medicine
DX: E83.42 Hypomagnesemia (principal); Z88.8 Allergy status to other drugs, medicaments and biological substances
CPT/HCPCS: 36415; 83735; 96365; J3475

== ENCOUNTER 2019-02-13 15:04 | Outpatient (CLI) | payer MEDICARE ==
[~2019-02-13] VITALS: Ht 157.5 cm; Wt 77.2 kg
[~2019-02-13 15:04] MED LIST changes: +SODIUM CHLORIDE 0.9% INJ 10 ML SYR IV SCH
[2019-02-13 15:10] VITALS: BP 139/63
[2019-02-13] MEDS ORDERED: MAG SULF 1GM/100ML (MAG RUN) SINGLE DOSE IV ONE ×4 (15:15→16:15)
[2019-02-13 17:40] VITALS: BP 141/65
== END 2019-02-13 17:40 | disposition home or self-care (01) ==
LOC: M INFU 15:04
PROVIDERS: ATTEND Family Medicine
DX: D64.81 Anemia due to antineoplastic chemotherapy (principal); C18.9 Malignant neoplasm of colon, unspecified; C78.7 Secondary malignant neoplasm of liver and intrahepatic bile duct; Z79.82 Long term (current) use of aspirin; Z79.899 Other long term (current) drug therapy; Z88.8 Allergy status to other drugs, medicaments and biological substances
CPT/HCPCS: 36591; 83735; 96365; 96366; J3475

== ENCOUNTER 2019-02-15 14:37 | Outpatient (CLI) | payer MEDICARE ==
[~2019-02-15] VITALS: Ht 157.5 cm; Wt 77.2 kg
[~2019-02-15 14:37] MED LIST changes: +BISO5TAB14 PO; -BISO5TAB9 PO; -LORA0.5T11 PO; +LORA0.5T5 PO; -SODIUM CHLORIDE 0.9% INJ 10 ML SYR IV SCH
[2019-02-15 14:47] VITALS: BP 151/65
[2019-02-15] MEDS ORDERED: MAGNESIUM SULFATE 1 GM/100 ML D5W BAG (10MG/ML) (J3475) As Ordered ONE (15:05)
[2019-02-15] MEDS: MAG SULF 1GM/100ML (MAG RUN) X 2 DOSES (2GM TOTAL) IV SCH ×4 (15:10→16:07)
[2019-02-15] MEDS ORDERED: SODIUM CHLORIDE 0.9% INJ 10 ML SYR IV ONE (16:00)
[2019-02-15 17:20] VITALS: BP 159/70
== END 2019-02-15 17:20 | disposition home or self-care (01) ==
LOC: M INFU 14:37
PROVIDERS: ATTEND Family Medicine
DX: D64.81 Anemia due to antineoplastic chemotherapy (principal); C78.7 Secondary malignant neoplasm of liver and intrahepatic bile duct; C18.9 Malignant neoplasm of colon, unspecified; I50.22 Chronic systolic (congestive) heart failure; Z88.8 Allergy status to other drugs, medicaments and biological substances
CPT/HCPCS: 36415; 83735; 96365; 96366; J3475

== ENCOUNTER → 2019-02-16 | Outpatient (CLI) | payer MEDICARE ==
[~2019-02-16] MED LIST changes: -BISO5TAB14 PO; +BISO5TAB9 PO; +LORA0.5T11 PO; -LORA0.5T5 PO
== END ==
LOC: M LAB 11:56
PROVIDERS: ATTEND Family Medicine
DX: E83.42 Hypomagnesemia (principal)

== ENCOUNTER 2019-02-17 14:51 | Outpatient (CLI) | payer MEDICARE ==
[~2019-02-17] VITALS: Ht 157.5 cm; Wt 77.2 kg
[~2019-02-17 14:51] MED LIST changes: +SODIUM CHLORIDE 0.9% INJ 10 ML SYR IV SCH
[2019-02-17 15:15] VITALS: BP 174/79
[2019-02-17] MEDS ORDERED: MAGNESIUM SULFATE 1 GM/100 ML D5W BAG (10MG/ML) (J3475) As Ordered ONE (16:16)
[2019-02-17] MEDS: MAG SULF 1GM/100ML (MAG RUN) X 2 DOSES (2GM TOTAL) IV SCH ×6 (16:20→18:05)
[2019-02-17 18:29] VITALS: BP 160/70
== END 2019-02-17 18:31 | disposition home or self-care (01) ==
LOC: M INFU 14:51
PROVIDERS: ATTEND Family Medicine
DX: E83.42 Hypomagnesemia (principal)

== ENCOUNTER → 2019-02-17 | Outpatient (CLI) | payer MEDICARE ==
[~2019-02-17] MED LIST changes: +BISO5TAB14 PO; -BISO5TAB9 PO; -LORA0.5T11 PO; +LORA0.5T5 PO
--- NOTE | 2019-02-17 15:51 | REP ---
Left lower extremity Duplex Doppler venous ultrasound: Real time compression and duplex Doppler interrogation of the left lower extremity deep venous system is performed. The left common femoral, superficial femoral and popliteal veins are fully compressible with transducer pressure and demonstrate normal spontaneous and phasic flow, without evidence of deep venous thrombosis. Impression: No evidence of deep venous thrombosis of the left lower extremity femoral popliteal venous system. Electronically Signed by Yared Snider MD 02/17/2019 03:43 P
== END ==
LOC: M RAD 14:49
PROVIDERS: ATTEND Family Medicine
DX: R60.0 Localized edema (principal); E83.42 Hypomagnesemia
CPT/HCPCS: 36591; 83735; 93971; 96365; 96366; 99495; G0463; J1642; J3475

== ENCOUNTER 2019-02-22 14:44 | Outpatient (CLI) | payer MEDICARE ==
[~2019-02-22] VITALS: Ht 157.5 cm; Wt 80.9 kg
[~2019-02-22 14:44] MED LIST changes: +SODIUM CHLORIDE 0.9% INJ 10 ML SYR IV SCH
[2019-02-22 15:10] VITALS: BP 150/68
[2019-02-22] MEDS ORDERED: MAG SULF 1GM/100ML (MAG RUN) 100 ML IV SCH (16:30)
[2019-02-22 17:45] VITALS: BP 156/69
== END 2019-02-22 17:45 | disposition home or self-care (01) ==
LOC: M INFU 14:44
PROVIDERS: ATTEND Family Medicine
DX: E83.42 Hypomagnesemia (principal)

== ENCOUNTER → 2019-02-22 | Outpatient (CLI) | payer MEDICARE ==
[~2019-02-22] MED LIST changes: -SODIUM CHLORIDE 0.9% INJ 10 ML SYR IV SCH
[2019-02-22 15:50] LABS: BASO # 0.1 10^3/uL (0.0-0.2); BASO % 0.7 % (0.0-1.0); EOS # 0.3 10^3/uL (0.0-0.5); EOS % 4.6 % (0.0-3.0); HEMATOCRIT 37.1 % (36.0-47.0); HEMOGLOBIN 10.9 g/dl (12.0-15.5); LYMPH # 0.7 10^3/uL (1.5-5.0); LYMPH % 9.8 % (24.0-44.0); MEAN CORPUSCULAR HEMOGLOBIN 26.1 pg (27.0-33.0); MEAN CORPUSCULAR HGB CONC 29.4 g/dl (32.0-36.5); MONO # 0.6 10^3/uL (0.0-0.8); NEUTROPHILS # 5.5 10^3/uL (1.5-8.5); NEUTROPHILS % 76.5 % (36.0-66.0); PLATELET COUNT, AUTOMATED 244 10^3/uL (150-450); RED BLOOD COUNT 4.17 10^6/uL (4.00-5.40); WHITE BLOOD COUNT 7.2 10^3/uL (4.0-10.0)
[2019-02-22 16:22] LABS: ALBUMIN 2.9 GM/DL (3.2-5.2); ALT/SGPT 13 U/L (12-78); BILIRUBIN,TOTAL 0.4 MG/DL (0.2-1.0); BLOOD UREA NITROGEN 12 MG/DL (7-18); CALCIUM LEVEL 7.9 MG/DL (8.8-10.2); CARBON DIOXIDE LEVEL 24 MEQ/L (21-32); CHLORIDE LEVEL 112 MEQ/L (98-107); CREATININE FOR GFR 0.75 MG/DL (0.55-1.30); GLOMERULAR FILTRATION RATE > 60.0 (>32); GLUCOSE, FASTING 125 MG/DL (70-100); MAGNESIUM LEVEL 1.1 MG/DL (1.8-2.4); POTASSIUM SERUM 4.4 MEQ/L (3.5-5.1); SODIUM LEVEL 144 MEQ/L (136-145); TOTAL PROTEIN 5.9 GM/DL (6.4-8.2)
== END ==
LOC: M LAB 14:47
PROVIDERS: ATTEND Internal Medicine Hematology & Oncology
DX: C18.9 Malignant neoplasm of colon, unspecified (principal); E83.42 Hypomagnesemia
CPT/HCPCS: 36591; 80053; 83735; 85025; 96365; J3475

== ENCOUNTER 2019-02-27 14:39 | Outpatient (CLI) | payer MEDICARE ==
[~2019-02-27] VITALS: Ht 157.5 cm; Wt 80.9 kg
[2019-02-27 14:45] VITALS: BP 126/67
[2019-02-27] MEDS ORDERED: MAGNESIUM SULFATE 1 GM/100 ML D5W BAG (10MG/ML) (J3475) As Ordered ONE (15:41)
[2019-02-27] MEDS: MAG SULF 1GM/100ML (MAG RUN) X 2 DOSES (2GM TOTAL) IV SCH ×4 (15:46→16:38)
[2019-02-27 17:45] VITALS: BP 136/64
== END 2019-02-27 17:59 | disposition home or self-care (01) ==
LOC: M INFU 14:39
PROVIDERS: ATTEND Family Medicine
DX: E83.42 Hypomagnesemia (principal); Z88.8 Allergy status to other drugs, medicaments and biological substances
CPT/HCPCS: 36415; 83735; 96365; 96366; J3475

== ENCOUNTER → 2019-03-01 | Outpatient (CLI) | payer MEDICARE ==
[~2019-03-01] MED LIST changes: -SODIUM CHLORIDE 0.9% INJ 10 ML SYR IV SCH
== END ==
LOC: M LAB 15:06
PROVIDERS: ATTEND Internal Medicine Hematology & Oncology
DX: C18.9 Malignant neoplasm of colon, unspecified (principal)

== ENCOUNTER → 2019-03-01 | Outpatient (CLI) | payer MEDICARE ==
[~2019-03-01] VITALS: Ht 157.5 cm; Wt 80.9 kg
[~2019-03-01] MED LIST changes: +MAGNESIUM SULFATE 1 GM/100 ML D5W BAG (10MG/ML) (J3475) As Ordered ONE; +SODIUM CHLORIDE 0.9% INJ 10 ML SYR IV SCH
[2019-03-01 15:25] VITALS: BP 140/89
[2019-03-01 15:55] LABS: BASO % 0.6 % (0.0-1.0); EOS # 0.3 10^3/uL (0.0-0.5); EOS % 4.9 % (0.0-3.0); HEMATOCRIT 37.9 % (36.0-47.0); LYMPH # 0.8 10^3/uL (1.5-5.0); LYMPH % 12.2 % (24.0-44.0); MEAN CORPUSCULAR HEMOGLOBIN 26.1 pg (27.0-33.0); MEAN CORPUSCULAR VOLUME 89.8 fl (80.0-96.0); MONO # 0.6 10^3/uL (0.0-0.8); MONO % 8.6 % (0.0-5.0); NEUTROPHILS % 73.3 % (36.0-66.0); PLATELET COUNT, AUTOMATED 228 10^3/uL (150-450); RED BLOOD COUNT 4.22 10^6/uL (4.00-5.40); WHITE BLOOD COUNT 6.9 10^3/uL (4.0-10.0)
[2019-03-01] MEDS: MAG SULF 1GM/100ML (MAG RUN) 100 ML IV SCH ×2 (16:00→16:56)
[2019-03-01 16:11] LABS: ALBUMIN 2.9 GM/DL (3.2-5.2); ALT/SGPT 14 U/L (12-78); BILIRUBIN,TOTAL 0.3 MG/DL (0.2-1.0); BLOOD UREA NITROGEN 12 MG/DL (7-18); CALCIUM LEVEL 7.8 MG/DL (8.8-10.2); CARBON DIOXIDE LEVEL 24 MEQ/L (21-32); CHLORIDE LEVEL 115 MEQ/L (98-107); CREATININE FOR GFR 0.72 MG/DL (0.55-1.30); GLOMERULAR FILTRATION RATE > 60.0 (>32); GLUCOSE, FASTING 101 MG/DL (70-100); POTASSIUM SERUM 4.6 MEQ/L (3.5-5.1); SODIUM LEVEL 144 MEQ/L (136-145); TOTAL PROTEIN 6.2 GM/DL (6.4-8.2)
[2019-03-01 18:05] VITALS: BP 147/67
== END ==
LOC: M INFU 15:02
PROVIDERS: ATTEND Family Medicine
DX: E83.42 Hypomagnesemia (principal); Z88.8 Allergy status to other drugs, medicaments and biological substances
CPT/HCPCS: 36591; 80053; 83735; 85025; 96365; 96366; J3475

== ENCOUNTER 2019-03-03 15:03 | Outpatient (CLI) | payer MEDICARE ==
[~2019-03-03] VITALS: Ht 157.5 cm; Wt 80.9 kg
[2019-03-03 15:00] VITALS: BP 121/59
[~2019-03-03 15:03] MED LIST changes: -MAGNESIUM SULFATE 1 GM/100 ML D5W BAG (10MG/ML) (J3475) As Ordered ONE
[2019-03-03] MEDS ORDERED: MAGNESIUM SULFATE 1 GM/100 ML D5W BAG (10MG/ML) (J3475) As Ordered ONE (16:00)
[2019-03-03] MEDS: MAG SULF 1GM/100ML (MAG RUN) 100 ML IV SCH ×2 (16:09→17:03)
[2019-03-03 18:05] VITALS: BP 136/78
== END 2019-03-03 18:05 | disposition home or self-care (01) ==
LOC: M INFU 15:03
PROVIDERS: ATTEND Family Medicine
DX: E83.42 Hypomagnesemia (principal); Z88.8 Allergy status to other drugs, medicaments and biological substances
CPT/HCPCS: 83735; 96365; 96366; J1642; J3475

== ENCOUNTER 2019-03-06 15:05 | Outpatient (CLI) | payer MEDICARE ==
[~2019-03-06] VITALS: Ht 157.5 cm; Wt 80.9 kg
[~2019-03-06 15:05] MED LIST changes: +MAG SULF 1GM/100ML (MAG RUN) SINGLE DOSE IV ONE
[2019-03-06 15:10] VITALS: BP 143/64
[2019-03-06] MEDS ORDERED: MAG SULF 1GM/100ML (MAG RUN) SINGLE DOSE IV ONE ×2 (16:45)
[2019-03-06 17:40] VITALS: BP 164/67
== END 2019-03-06 17:50 | disposition home or self-care (01) ==
LOC: M INFU 15:05
PROVIDERS: ATTEND Family Medicine
DX: E83.42 Hypomagnesemia (principal); Z88.9 Allergy status to unspecified drugs, medicaments and biological substances; Z88.8 Allergy status to other drugs, medicaments and biological substances
CPT/HCPCS: 36415; 83735; 96365; 96366; J1642; J3475

== ENCOUNTER 2019-03-08 15:01 | Outpatient (CLI) | payer MEDICARE ==
[~2019-03-08] VITALS: Ht 157.5 cm; Wt 80.9 kg
[~2019-03-08 15:01] MED LIST changes: +SODIUM CHLORIDE 0.9% INJ 10 ML SYR IV PRN; +SODIUM CHLORIDE 0.9% INJ 10 ML SYR IV SCH
[2019-03-08 15:30] VITALS: BP 148/74
[2019-03-08] MEDS ORDERED: MAG SULF 1GM/100ML (MAG RUN) SINGLE DOSE IV ONE ×4 (15:30→16:30)
[2019-03-08 18:05] VITALS: BP 157/72
== END 2019-03-08 18:05 | disposition home or self-care (01) ==
LOC: M INFU 15:01
PROVIDERS: ATTEND Family Medicine
DX: E83.42 Hypomagnesemia (principal); Z88.8 Allergy status to other drugs, medicaments and biological substances; C18.9 Malignant neoplasm of colon, unspecified
CPT/HCPCS: 36415; 36591; 80053; 83735; 85025; 96365; 96366; J1642; J3475

== ENCOUNTER → 2019-03-08 | Outpatient (CLI) | payer MEDICARE ==
[~2019-03-08] MED LIST changes: -MAG SULF 1GM/100ML (MAG RUN) SINGLE DOSE IV ONE; -SODIUM CHLORIDE 0.9% INJ 10 ML SYR IV SCH
[2019-03-08 19:30] LABS: BASO % 0.4 % (0.0-1.0); EOS # 0.3 10^3/uL (0.0-0.5); HEMATOCRIT 35.5 % (36.0-47.0); HEMOGLOBIN 10.4 g/dl (12.0-15.5); LYMPH # 0.7 10^3/uL (1.5-5.0); LYMPH % 8.9 % (24.0-44.0); MEAN CORPUSCULAR HGB CONC 29.3 g/dl (32.0-36.5); MEAN CORPUSCULAR VOLUME 88.8 fl (80.0-96.0); MONO # 0.6 10^3/uL (0.0-0.8); MONO % 8.4 % (0.0-5.0); NEUTROPHILS # 5.7 10^3/uL (1.5-8.5); PLATELET COUNT, AUTOMATED 181 10^3/uL (150-450); WHITE BLOOD COUNT 7.3 10^3/uL (4.0-10.0)
[2019-03-08 19:53] LABS: ALBUMIN 2.6 GM/DL (3.2-5.2); ALT/SGPT 15 U/L (12-78); BILIRUBIN,TOTAL 0.2 MG/DL (0.2-1.0); BLOOD UREA NITROGEN 12 MG/DL (7-18); CALCIUM LEVEL 7.2 MG/DL (8.8-10.2); CARBON DIOXIDE LEVEL 27 MEQ/L (21-32); CHLORIDE LEVEL 113 MEQ/L (98-107); CREATININE FOR GFR 0.61 MG/DL (0.55-1.30); GLOMERULAR FILTRATION RATE > 60.0 (>32); GLUCOSE, FASTING 109 MG/DL (70-100); MAGNESIUM LEVEL 0.8 MG/DL (1.8-2.4); POTASSIUM SERUM 4.2 MEQ/L (3.5-5.1); SODIUM LEVEL 145 MEQ/L (136-145); TOTAL PROTEIN 5.6 GM/DL (6.4-8.2)
== END ==
LOC: M LAB 15:07
PROVIDERS: ATTEND Internal Medicine Hematology & Oncology
DX: C18.9 Malignant neoplasm of colon, unspecified (principal)

== ENCOUNTER 2019-03-13 15:10 | Outpatient (CLI) | payer MEDICARE ==
[~2019-03-13] VITALS: Ht 157.5 cm; Wt 80.9 kg
[2019-03-13 15:15] VITALS: BP 140/63
[2019-03-13] MEDS: MAG SULF 1GM/100ML (MAG RUN) 100 ML IV SCH ×2 (16:07→16:11)
[2019-03-13 17:57] VITALS: BP 164/73
== END 2019-03-13 18:20 ==
LOC: M INFU 15:10
PROVIDERS: ATTEND Family Medicine
DX: E83.42 Hypomagnesemia (principal); Z88.8 Allergy status to other drugs, medicaments and biological substances; Z88.9 Allergy status to unspecified drugs, medicaments and biological substances
CPT/HCPCS: 36591; 83735; 96365; 96366; J3475

== ENCOUNTER → 2019-03-15 | Outpatient (CLI) | payer MEDICARE ==
[~2019-03-15] VITALS: Ht 157.5 cm; Wt 80.9 kg
[~2019-03-15] MED LIST changes: +MAG SULF 1GM/100ML (MAG RUN) SINGLE DOSE IV ONE; -SODIUM CHLORIDE 0.9% INJ 10 ML SYR IV PRN
[2019-03-15 15:20] VITALS: BP 139/87
[2019-03-15 17:53] VITALS: BP 154/68
== END ==
LOC: M INFU 15:09
PROVIDERS: ATTEND Family Medicine
DX: E83.42 Hypomagnesemia (principal); Z88.8 Allergy status to other drugs, medicaments and biological substances; Z88.9 Allergy status to unspecified drugs, medicaments and biological substances

== ENCOUNTER → 2019-03-15 | Outpatient (CLI) | payer MEDICARE ==
[~2019-03-15] MED LIST changes: -MAG SULF 1GM/100ML (MAG RUN) SINGLE DOSE IV ONE; -SODIUM CHLORIDE 0.9% INJ 10 ML SYR IV SCH
[2019-03-15 15:47] LABS: BASO % 0.4 % (0.0-1.0); EOS # 0.4 10^3/uL (0.0-0.5); EOS % 5.3 % (0.0-3.0); HEMATOCRIT 37.5 % (36.0-47.0); HEMOGLOBIN 11.1 g/dl (12.0-15.5); LYMPH # 0.7 10^3/uL (1.5-5.0); LYMPH % 10.1 % (24.0-44.0); MEAN CORPUSCULAR HEMOGLOBIN 26.5 pg (27.0-33.0); MEAN CORPUSCULAR HGB CONC 29.6 g/dl (32.0-36.5); MEAN CORPUSCULAR VOLUME 89.5 fl (80.0-96.0); MONO # 0.7 10^3/uL (0.0-0.8); MONO % 10.6 % (0.0-5.0); NEUTROPHILS % 73.3 % (36.0-66.0); PLATELET COUNT, AUTOMATED 221 10^3/uL (150-450); RED BLOOD COUNT 4.19 10^6/uL (4.00-5.40); WHITE BLOOD COUNT 6.8 10^3/uL (4.0-10.0)
[2019-03-15 16:51] LABS: ALT/SGPT 12 U/L (12-78); BILIRUBIN,TOTAL 0.3 MG/DL (0.2-1.0); BLOOD UREA NITROGEN 14 MG/DL (7-18); CALCIUM LEVEL 7.4 MG/DL (8.8-10.2); CARBON DIOXIDE LEVEL 27 MEQ/L (21-32); CHLORIDE LEVEL 112 MEQ/L (98-107); CREATININE FOR GFR 0.71 MG/DL (0.55-1.30); GLOMERULAR FILTRATION RATE > 60.0 (>32); GLUCOSE, FASTING 103 MG/DL (70-100); POTASSIUM SERUM 5.6 MEQ/L (3.5-5.1); SODIUM LEVEL 144 MEQ/L (136-145)
[2019-03-15 16:52] LABS: ALBUMIN 2.8 GM/DL (3.2-5.2); MAGNESIUM LEVEL 0.9 MG/DL (1.8-2.4); TOTAL PROTEIN 6.1 GM/DL (6.4-8.2)
== END ==
LOC: M LAB 15:05
PROVIDERS: ATTEND Internal Medicine Hematology & Oncology
DX: C18.9 Malignant neoplasm of colon, unspecified (principal); E83.42 Hypomagnesemia; Z88.8 Allergy status to other drugs, medicaments and biological substances
CPT/HCPCS: 36591; 80053; 83735; 85025; 96365; 96366; J1642; J3475

== ENCOUNTER 2019-03-17 11:22 | Outpatient (CLI) | payer MEDICARE ==
[~2019-03-17] VITALS: Ht 157.5 cm; Wt 80.9 kg
[2019-03-17 11:30] VITALS: BP 128/59
[2019-03-17] MEDS ORDERED: MAGNESIUM SULFATE 1 GM/100 ML D5W BAG (10MG/ML) (J3475) As Ordered ONE (12:22)
[2019-03-17] MEDS: MAG SULF 1GM/100ML (MAG RUN) X 2 DOSES (2GM TOTAL) IV SCH ×4 (12:27→12:28)
[2019-03-17] MEDS ORDERED: SODIUM CHLORIDE 0.9% INJ 10 ML SYR IV ONE (13:00)
[2019-03-17 14:40] VITALS: BP 139/63
== END 2019-03-17 14:40 | disposition home or self-care (01) ==
LOC: M INFU 11:22
PROVIDERS: ATTEND Family Medicine
DX: E83.42 Hypomagnesemia (principal); Z88.8 Allergy status to other drugs, medicaments and biological substances; Z88.9 Allergy status to unspecified drugs, medicaments and biological substances
CPT/HCPCS: 36591; 83735; 96365; 96366; J1642; J3475

== ENCOUNTER 2019-03-20 15:07 | Outpatient (CLI) | payer MEDICARE ==
[~2019-03-20] VITALS: Ht 157.5 cm; Wt 80.9 kg
[2019-03-20 15:15] VITALS: BP 131/65
[2019-03-20] MEDS: MAG SULF 1GM/100ML (MAG RUN) X 2 DOSES (2GM TOTAL) IV SCH ×4 (16:12→16:13)
[2019-03-20] MEDS ORDERED: SODIUM CHLORIDE 0.9% INJ 10 ML SYR IV ONE (17:00)
[2019-03-20 18:11] VITALS: BP 176/72
== END 2019-03-20 18:27 | disposition home or self-care (01) ==
LOC: M INFU 15:07
PROVIDERS: ATTEND Family Medicine
DX: E83.42 Hypomagnesemia (principal); Z88.8 Allergy status to other drugs, medicaments and biological substances; Z88.9 Allergy status to unspecified drugs, medicaments and biological substances
CPT/HCPCS: 36591; 83735; 96365; 96366; J1642; J3475

== ENCOUNTER 2019-03-22 15:05 | Outpatient (CLI) | payer MEDICARE ==
[~2019-03-22] VITALS: Ht 157.5 cm; Wt 80.9 kg
[~2019-03-22 15:05] MED LIST changes: +SODIUM CHLORIDE 0.9% INJ 10 ML SYR IV SCH
[2019-03-22 15:10] VITALS: BP 141/67
[2019-03-22] MEDS ORDERED: MAG SULF 1GM/100ML (MAG RUN) SINGLE DOSE IV ONE ×4 (16:00→17:00)
[2019-03-22 18:10] VITALS: BP 148/65
== END 2019-03-22 18:10 | disposition home or self-care (01) ==
LOC: M INFU 15:05
PROVIDERS: ATTEND Family Medicine
DX: E83.42 Hypomagnesemia (principal); Z88.9 Allergy status to unspecified drugs, medicaments and biological substances
CPT/HCPCS: 36415; 80053; 83735; 85025; 96365; 96366; J1642; J3475

== ENCOUNTER → 2019-03-22 | Outpatient (CLI) | payer MEDICARE ==
[2019-03-22 15:43] LABS: BASO # 0.1 10^3/uL (0.0-0.2); BASO % 0.7 % (0.0-1.0); EOS # 0.3 10^3/uL (0.0-0.5); EOS % 3.8 % (0.0-3.0); HEMATOCRIT 36.9 % (36.0-47.0); HEMOGLOBIN 11.4 g/dl (12.0-15.5); LYMPH # 0.8 10^3/uL (1.5-5.0); LYMPH % 9.3 % (24.0-44.0); MEAN CORPUSCULAR HEMOGLOBIN 27.1 pg (27.0-33.0); MEAN CORPUSCULAR HGB CONC 30.9 g/dl (32.0-36.5); MEAN CORPUSCULAR VOLUME 87.6 fl (80.0-96.0); MONO # 0.6 10^3/uL (0.0-0.8); MONO % 7.2 % (0.0-5.0); NEUTROPHILS # 6.9 10^3/uL (1.5-8.5); NEUTROPHILS % 78.7 % (36.0-66.0); PLATELET COUNT, AUTOMATED 273 10^3/uL (150-450); RED BLOOD COUNT 4.21 10^6/uL (4.00-5.40); WHITE BLOOD COUNT 8.8 10^3/uL (4.0-10.0)
[2019-03-22 16:07] LABS: ALBUMIN 3.2 GM/DL (3.2-5.2); ALT/SGPT 13 U/L (12-78); BILIRUBIN,TOTAL 0.4 MG/DL (0.2-1.0); BLOOD UREA NITROGEN 14 MG/DL (7-18); CALCIUM LEVEL 8.1 MG/DL (8.8-10.2); CARBON DIOXIDE LEVEL 24 MEQ/L (21-32); CHLORIDE LEVEL 110 MEQ/L (98-107); CREATININE FOR GFR 0.81 MG/DL (0.55-1.30); GLOMERULAR FILTRATION RATE > 60.0 (>32); GLUCOSE, FASTING 115 MG/DL (70-100); POTASSIUM SERUM 4.9 MEQ/L (3.5-5.1); SODIUM LEVEL 142 MEQ/L (136-145); TOTAL PROTEIN 6.5 GM/DL (6.4-8.2)
== END ==
LOC: M LAB 15:08
PROVIDERS: ATTEND Internal Medicine Hematology & Oncology
DX: C18.9 Malignant neoplasm of colon, unspecified (principal); E83.42 Hypomagnesemia; Z88.9 Allergy status to unspecified drugs, medicaments and biological substances

== ENCOUNTER 2019-03-27 14:47 | Outpatient (CLI) | payer MEDICARE ==
[~2019-03-27] VITALS: Ht 157.5 cm; Wt 80.9 kg
[2019-03-27] MEDS ORDERED: MAGNESIUM SULFATE 1 GM/100 ML D5W BAG (10MG/ML) (J3475) As Ordered ONE (15:33)
[2019-03-27] MEDS: MAG SULF 1GM/100ML (MAG RUN) X 2 DOSES (2GM TOTAL) IV SCH ×4 (15:37→16:36)
[2019-03-27 17:43] VITALS: BP 158/68
== END 2019-03-27 17:50 | disposition home or self-care (01) ==
LOC: M INFU 14:47
PROVIDERS: ATTEND Family Medicine
DX: E83.42 Hypomagnesemia (principal); Z88.8 Allergy status to other drugs, medicaments and biological substances
CPT/HCPCS: 36591; 83735; 96365; 96366; J3475

== ENCOUNTER 2019-03-29 14:49 | Outpatient (CLI) | payer MEDICARE ==
[~2019-03-29] VITALS: Ht 157.5 cm; Wt 80.9 kg
[~2019-03-29 14:49] MED LIST changes: +SODIUM CHLORIDE 0.9% INJ 10 ML SYR IV SCH
[2019-03-29 15:28] VITALS: BP 156/69
[2019-03-29] MEDS ORDERED: MAG SULF 1GM/100ML (MAG RUN) SINGLE DOSE IV ONE ×4 (15:30→16:30)
[2019-03-29 17:40] VITALS: BP 149/67
== END 2019-03-29 17:45 | disposition home or self-care (01) ==
LOC: M INFU 14:49
PROVIDERS: ATTEND Family Medicine
DX: E83.42 Hypomagnesemia (principal); Z88.8 Allergy status to other drugs, medicaments and biological substances; C18.9 Malignant neoplasm of colon, unspecified
CPT/HCPCS: 36591; 80053; 83735; 85025; 96365; 96366; J1642; J3475

== ENCOUNTER → 2019-03-29 | Outpatient (CLI) | payer MEDICARE ==
[~2019-03-29] MED LIST changes: -SODIUM CHLORIDE 0.9% INJ 10 ML SYR IV SCH
[2019-03-29 15:55] LABS: BASO # 0.1 10^3/uL (0.0-0.2); BASO % 0.7 % (0.0-1.0); EOS # 0.4 10^3/uL (0.0-0.5); EOS % 4.9 % (0.0-3.0); HEMATOCRIT 36.4 % (36.0-47.0); HEMOGLOBIN 11.1 g/dl (12.0-15.5); LYMPH # 0.8 10^3/uL (1.5-5.0); LYMPH % 10.6 % (24.0-44.0); MEAN CORPUSCULAR HEMOGLOBIN 27.1 pg (27.0-33.0); MEAN CORPUSCULAR HGB CONC 30.5 g/dl (32.0-36.5); MEAN CORPUSCULAR VOLUME 88.8 fl (80.0-96.0); MONO # 0.7 10^3/uL (0.0-0.8); MONO % 8.9 % (0.0-5.0); NEUTROPHILS # 5.6 10^3/uL (1.5-8.5); NEUTROPHILS % 74.6 % (36.0-66.0); PLATELET COUNT, AUTOMATED 255 10^3/uL (150-450); WHITE BLOOD COUNT 7.5 10^3/uL (4.0-10.0)
[2019-03-29 16:47] LABS: ALBUMIN 2.9 GM/DL (3.2-5.2); ALT/SGPT 12 U/L (12-78); BILIRUBIN,TOTAL 0.4 MG/DL (0.2-1.0); BLOOD UREA NITROGEN 13 MG/DL (7-18); CALCIUM LEVEL 8.2 MG/DL (8.8-10.2); CARBON DIOXIDE LEVEL 26 MEQ/L (21-32); CHLORIDE LEVEL 113 MEQ/L (98-107); CREATININE FOR GFR 0.74 MG/DL (0.55-1.30); GLOMERULAR FILTRATION RATE > 60.0 (>32); GLUCOSE, FASTING 111 MG/DL (70-100); POTASSIUM SERUM 4.4 MEQ/L (3.5-5.1); SODIUM LEVEL 144 MEQ/L (136-145); TOTAL PROTEIN 6.6 GM/DL (6.4-8.2)
== END ==
LOC: M LAB 14:58
PROVIDERS: ATTEND Internal Medicine Hematology & Oncology
DX: C18.9 Malignant neoplasm of colon, unspecified (principal)

== ENCOUNTER 2019-03-31 13:00 | Outpatient (CLI) | payer MEDICARE ==
[~2019-03-31] VITALS: Ht 162.6 cm; Wt 80.9 kg
[2019-03-31] MEDS ORDERED: MAG SULF 1GM/100ML (MAG RUN) SINGLE DOSE IV ONE ×4 (13:15→14:15)
[2019-03-31 13:26] VITALS: BP 139/71
[2019-03-31 15:45] VITALS: BP 143/68
== END 2019-03-31 15:45 | disposition home or self-care (01) ==
LOC: M INFU 13:00
PROVIDERS: ATTEND Family Medicine
DX: E83.42 Hypomagnesemia (principal); Z88.8 Allergy status to other drugs, medicaments and biological substances
CPT/HCPCS: 36591; 83735; 96365; 96366; J1642; J3475

== ENCOUNTER 2019-04-03 15:06 | Outpatient (CLI) | payer MEDICARE ==
[~2019-04-03] VITALS: Ht 157.5 cm; Wt 80.9 kg
[2019-04-03 15:10] VITALS: BP 151/71
[2019-04-03] MEDS ORDERED: MAGNESIUM SULFATE 1 GM/100 ML D5W BAG (10MG/ML) (J3475) As Ordered ONE (15:59)
[2019-04-03] MEDS: MAG SULF 1GM/100ML (MAG RUN) X 2 DOSES (2GM TOTAL) IV SCH ×4 (16:04→16:05)
[2019-04-03 17:54] VITALS: BP 146/68
== END 2019-04-03 18:15 | disposition home or self-care (01) ==
LOC: M INFU 15:06
PROVIDERS: ATTEND Family Medicine
DX: E83.42 Hypomagnesemia (principal); Z88.8 Allergy status to other drugs, medicaments and biological substances
CPT/HCPCS: 36591; 83735; 96365; 96366; J1642; J3475

== ENCOUNTER 2019-04-05 15:05 | Outpatient (CLI) | payer MEDICARE ==
[~2019-04-05] VITALS: Ht 157.5 cm; Wt 80.0 kg
[2019-04-05 15:10] VITALS: BP 150/68
[2019-04-05] MEDS ORDERED: MAGNESIUM SULFATE 1 GM/100 ML D5W BAG (10MG/ML) (J3475) As Ordered ONE (16:15)
[2019-04-05] MEDS: MAG SULF 1GM/100ML (MAG RUN) X 2 DOSES (2GM TOTAL) IV SCH ×2 (16:24)
[2019-04-05] MEDS ORDERED: SODIUM CHLORIDE 0.9% INJ 10 ML SYR IV ONE (17:00)
[2019-04-05 18:30] VITALS: BP 143/70
== END 2019-04-05 18:30 | disposition home or self-care (01) ==
LOC: M INFU 15:05
PROVIDERS: ATTEND Family Medicine
DX: E83.42 Hypomagnesemia (principal); Z88.8 Allergy status to other drugs, medicaments and biological substances

== ENCOUNTER → 2019-04-05 | Outpatient (CLI) | payer MEDICARE ==
[~2019-04-05] MED LIST changes: -SODIUM CHLORIDE 0.9% INJ 10 ML SYR IV SCH
[2019-04-05 15:54] LABS: BASO % 0.7 % (0.0-1.0); EOS # 0.4 10^3/uL (0.0-0.5); EOS % 6.3 % (0.0-3.0); HEMATOCRIT 35.9 % (36.0-47.0); HEMOGLOBIN 10.9 g/dl (12.0-15.5); LYMPH # 0.7 10^3/uL (1.5-5.0); LYMPH % 12.3 % (24.0-44.0); MEAN CORPUSCULAR HEMOGLOBIN 27.2 pg (27.0-33.0); MEAN CORPUSCULAR HGB CONC 30.4 g/dl (32.0-36.5); MEAN CORPUSCULAR VOLUME 89.5 fl (80.0-96.0); MONO # 0.5 10^3/uL (0.0-0.8); MONO % 8.9 % (0.0-5.0); NEUTROPHILS # 4.2 10^3/uL (1.5-8.5); NEUTROPHILS % 71.5 % (36.0-66.0); PLATELET COUNT, AUTOMATED 223 10^3/uL (150-450); RED BLOOD COUNT 4.01 10^6/uL (4.00-5.40); WHITE BLOOD COUNT 5.8 10^3/uL (4.0-10.0)
[2019-04-05 16:37] LABS: ALBUMIN 2.9 GM/DL (3.2-5.2); ALT/SGPT 11 U/L (12-78); BILIRUBIN,TOTAL 0.3 MG/DL (0.2-1.0); BLOOD UREA NITROGEN 11 MG/DL (7-18); CALCIUM LEVEL 7.7 MG/DL (8.8-10.2); CARBON DIOXIDE LEVEL 25 MEQ/L (21-32); CHLORIDE LEVEL 114 MEQ/L (98-107); CREATININE FOR GFR 0.76 MG/DL (0.55-1.30); GLOMERULAR FILTRATION RATE > 60.0 (>32); GLUCOSE, FASTING 145 MG/DL (70-100); MAGNESIUM LEVEL 0.9 MG/DL (1.8-2.4); POTASSIUM SERUM 4.6 MEQ/L (3.5-5.1); SODIUM LEVEL 146 MEQ/L (136-145)
== END ==
LOC: M LAB 15:10
PROVIDERS: ATTEND Internal Medicine Hematology & Oncology
DX: C18.9 Malignant neoplasm of colon, unspecified (principal); E83.42 Hypomagnesemia; Z91.040 Latex allergy status
CPT/HCPCS: 36591; 80053; 83735; 85025; J1642; J3475

== ENCOUNTER 2019-04-07 11:04 | Outpatient (CLI) | payer MEDICARE ==
[~2019-04-07] VITALS: Ht 157.5 cm; Wt 80.9 kg
[~2019-04-07 11:04] MED LIST changes: +SODIUM CHLORIDE 0.9% INJ 10 ML SYR IV SCH
[2019-04-07 11:10] VITALS: BP 125/68
[2019-04-07] MEDS: MAG SULF 1GM/100ML (MAG RUN) X 2 DOSES (2GM TOTAL) IV SCH ×2 (12:19)
[2019-04-07 14:35] VITALS: BP 158/73
== END 2019-04-07 14:35 | disposition home or self-care (01) ==
LOC: M INFU 11:04
PROVIDERS: ATTEND Family Medicine
DX: E83.42 Hypomagnesemia (principal); Z88.8 Allergy status to other drugs, medicaments and biological substances
CPT/HCPCS: 36591; 83735; 96365; 96366; J1642; J3475

== ENCOUNTER 2019-04-10 15:06 | Outpatient (CLI) | payer MEDICARE ==
[~2019-04-10] VITALS: Ht 157.5 cm; Wt 80.9 kg
[~2019-04-10 15:06] MED LIST changes: -SODIUM CHLORIDE 0.9% INJ 10 ML SYR IV SCH
[2019-04-10 15:44] VITALS: BP 148/69
[2019-04-10] MEDS: MAG SULF 1GM/100ML (MAG RUN) X 2 DOSES (2GM TOTAL) IV SCH ×4 (16:00→17:02)
[2019-04-10] MEDS ORDERED: MAGNESIUM SULFATE 1 GM/100 ML D5W BAG (10MG/ML) (J3475) As Ordered ONE (16:01)
[2019-04-10] MEDS ORDERED: SODIUM CHLORIDE 0.9% INJ 10 ML SYR IV ONE (17:00)
[2019-04-10 18:05] VITALS: BP 146/63
== END 2019-04-10 18:15 | disposition home or self-care (01) ==
LOC: M INFU 15:06
PROVIDERS: ATTEND Family Medicine
DX: E83.42 Hypomagnesemia (principal); Z88.8 Allergy status to other drugs, medicaments and biological substances
CPT/HCPCS: 36591; 83735; 96365; 96366; J1642; J3475

== ENCOUNTER 2019-04-12 15:01 | Outpatient (CLI) | payer MEDICARE ==
[~2019-04-12] VITALS: Ht 157.5 cm; Wt 80.9 kg
[~2019-04-12 15:01] MED LIST changes: +SODIUM CHLORIDE 0.9% INJ 10 ML SYR IV SCH
[2019-04-12 15:05] VITALS: BP 121/60
[2019-04-12] MEDS ORDERED: MAG SULF 1GM/100ML (MAG RUN) SINGLE DOSE IV ONE ×2 (15:30)
[2019-04-12] MEDS ORDERED: MAG SULF 1GM/100ML (MAG RUN) SINGLE DOSE IV PRN ×2 (15:30)
[2019-04-12 18:16] VITALS: BP 147/66
== END 2019-04-12 18:36 | disposition home or self-care (01) ==
LOC: M INFU 15:01
PROVIDERS: ATTEND Family Medicine
DX: E83.42 Hypomagnesemia (principal); Z88.8 Allergy status to other drugs, medicaments and biological substances
CPT/HCPCS: 36591; 80053; 83735; 85025; J1642; J3475

== ENCOUNTER → 2019-04-12 | Outpatient (CLI) | payer MEDICARE ==
[2019-04-12 16:12] LABS: BASO # 0.1 10^3/uL (0.0-0.2); BASO % 0.6 % (0.0-1.0); EOS # 0.3 10^3/uL (0.0-0.5); EOS % 4.3 % (0.0-3.0); HEMATOCRIT 36.1 % (36.0-47.0); HEMOGLOBIN 11.1 g/dl (12.0-15.5); LYMPH # 0.8 10^3/uL (1.5-5.0); LYMPH % 9.4 % (24.0-44.0); MEAN CORPUSCULAR HEMOGLOBIN 27.1 pg (27.0-33.0); MEAN CORPUSCULAR HGB CONC 30.7 g/dl (32.0-36.5); MONO # 0.6 10^3/uL (0.0-0.8); NEUTROPHILS # 6.3 10^3/uL (1.5-8.5); NEUTROPHILS % 78.4 % (36.0-66.0); PLATELET COUNT, AUTOMATED 250 10^3/uL (150-450)
[2019-04-12 16:39] LABS: ALBUMIN 3.1 GM/DL (3.2-5.2); ALT/SGPT 16 U/L (12-78); BILIRUBIN,TOTAL 0.4 MG/DL (0.2-1.0); BLOOD UREA NITROGEN 16 MG/DL (7-18); CALCIUM LEVEL 8.1 MG/DL (8.8-10.2); CARBON DIOXIDE LEVEL 26 MEQ/L (21-32); CHLORIDE LEVEL 113 MEQ/L (98-107); CREATININE FOR GFR 0.68 MG/DL (0.55-1.30); GLOMERULAR FILTRATION RATE > 60.0 (>32); GLUCOSE, FASTING 101 MG/DL (70-100); POTASSIUM SERUM 4.6 MEQ/L (3.5-5.1); SODIUM LEVEL 145 MEQ/L (136-145); TOTAL PROTEIN 6.3 GM/DL (6.4-8.2)
== END ==
LOC: M LAB 15:06
PROVIDERS: ATTEND Internal Medicine Hematology & Oncology
DX: E83.42 Hypomagnesemia (principal)
CPT/HCPCS: 36591; 80053; 83735; 85025; J1642; J3475

== ENCOUNTER 2019-04-14 15:06 | Outpatient (CLI) | payer MEDICARE ==
[~2019-04-14] VITALS: Ht 157.5 cm; Wt 80.9 kg
[2019-04-14 15:30] VITALS: BP 137/60
[2019-04-14] MEDS ORDERED: MAGNESIUM SULFATE 1 GM/100 ML D5W BAG (10MG/ML) (J3475) As Ordered ONE (16:01)
[2019-04-14] MEDS: MAG SULF 1GM/100ML (MAG RUN) X 2 DOSES (2GM TOTAL) IV SCH ×4 (16:17→17:23)
[2019-04-14 16:30] VITALS: BP 141/70
[2019-04-14 18:15] VITALS: BP 140/72
[2019-04-17] MEDS ORDERED: LR 1,000 ML IV ONE (07:00)
== END 2019-04-14 18:16 | disposition home or self-care (01) ==
LOC: M INFU 15:06
PROVIDERS: ATTEND Family Medicine
DX: E83.42 Hypomagnesemia (principal); Z88.8 Allergy status to other drugs, medicaments and biological substances
CPT/HCPCS: 36591; 83735; 96365; 96366; J3475

== ENCOUNTER 2019-04-17 08:46 | Outpatient (CLI) | payer MEDICARE ==
[~2019-04-17] VITALS: Ht 157.5 cm; Wt 80.9 kg
[~2019-04-17 08:46] MED LIST changes: -GASTROGRAFIN SOLUTION 30ML (Q9963) As Ordered ONE; -ISOVUE-370 76% 100ML VIAL (Q9967) As Ordered ONE
[2019-04-17] MEDS ORDERED: SODIUM CHLORIDE 0.9% INJ 10 ML SYR IV SCH (09:00)
[2019-04-17] MEDS: MAGNESIUM SULFATE 1 GM/100 ML D5W BAG (10MG/ML) (J3475) IV SCH ×2 (11:11→11:18)
[2019-04-17 11:15] VITALS: BP 149/67
[2019-04-17 13:40] VITALS: BP 134/63
== END 2019-04-17 13:40 | disposition home or self-care (01) ==
LOC: M INFU 08:46
PROVIDERS: ATTEND Family Medicine
DX: E83.42 Hypomagnesemia (principal); C18.9 Malignant neoplasm of colon, unspecified; K44.9 Diaphragmatic hernia without obstruction or gangrene; J90 Pleural effusion, not elsewhere classified; Z88.8 Allergy status to other drugs, medicaments and biological substances
CPT/HCPCS: 36591; 71260; 74178; 83735; 96372; J1642; J3475; Q9963; Q9967

== ENCOUNTER → 2019-04-17 | Outpatient (CLI) | payer MEDICARE ==
[~2019-04-17] MED LIST changes: +GASTROGRAFIN SOLUTION 30ML (Q9963) As Ordered ONE; +ISOVUE-370 76% 100ML VIAL (Q9967) As Ordered ONE; -SODIUM CHLORIDE 0.9% INJ 10 ML SYR IV SCH
--- NOTE | 2019-04-17 12:33 | REP ---
T of the chest with IV contrast: Comparison is 01/16/1928 teen. The studies performed for metastatic colon carcinoma. There are at least small six lung nodules, unchanged in size or number from the comparison study. There are no new lung nodules or masses. There is chronic parenchymal scarring posteriorly in the lingula, unchanged. There is chronic fibro linear scarring in the left lower lobe, unchanged. There are no acute infiltrates. There is a small right pleural effusion, unchanged. The thoracic aorta is unremarkable. There is no mediastinal or hilar lymph node enlargement. There is no axillary lymph node enlargement. The cardiac size is enlarged. This is unchanged. There is a small pericardial effusion, unchanged. There are no lytic, blastic or destructive skeletal changes. There is a fixed hiatal hernia, unchanged. Impression: No change in number or size of the lung nodules. Small right pleural effusion, unchanged. Small pericardial effusion, unchanged. Cardiac size is enlarged, unchanged. No adenopathy. This is unchanged. No significant interval change. Electronically Signed by Yared Paul MD 04/17/2019 12:24 P
--- NOTE | 2019-04-17 13:15 | REP ---
CT of the abdomen and pelvis without and with IV contrast and with bowel contrast for metastatic colon carcinoma. Followup: Comparisons are 01/16/2019 and 10/19/2018. The There is a small right pleural effusion, unchanged. There is focal thickening of the left hemidiaphragm medially, unchanged. There is a small pericardial effusion, unchanged. There is reportedly a cholecystectomy. There are surgical clips in the gallbladder fossa. There is a common biliary duct stent and pneumobilia. This is unchanged. There are hypodense lesions posteriorly and medially in the right lobe of the liver. These appear to have increased. On the comparison studies there was a single lesion containing calcifications in this area. This lesion containing calcifications is again identified and is essentially unchanged measuring 16 mm in diameter. However, just inferior to this lesion, there are least four more hypodense lesions in the liver measuring 15 mm, 15 mm, 14 mm and 32 mm as a change from the prior studies. No other focal hepatic lesions are identified. The pancreas and spleen are normal size, unremarkable and unchanged. There is a left adrenal 11 mm hypodense nodule, however, this is unchanged from studies dating to 03/29/2014. The right adrenal is unremarkable and unchanged. There is a Bosniak type 1 right renal cyst at the upper pole, unchanged. There is a Bosniak type 1 left renal cortical cyst at the lower pole, unchanged. There is no periaortic adenopathy or mass. The abdominal aorta is otherwise unremarkable except for occasional calcified atheroma. Pelvis: There is reported appendectomy and hysterectomy. There is a circumferential surgical anastomotic suture ring in the rectosigmoid colon, unchanged. No evidence of focal or diffuse colonic wall thickening in this area to suggest tumor recurrence. The vaginal cuff, adnexa and bladder are unremarkable. There is no pelvic ascites or adenopathy. There are no lytic, blastic or destructive skeletal changes. There is degenerative disc disease throughout the lumbar spine. Impression: I suspect there are a few more hypodense lesions posteriorly and medially in the right lobe of the liver as discussed above. There is a stable hypodense 11 mm left adrenal nodule, unchanged from 03/29/2014. Postsurgical changes as described. Hiatal hernia, unchanged. Small right pleural effusion, unchanged. Focal thickening of the left hemidiaphragm medially, unchanged. Common biliary duct stent and pneumobilia, unchanged. Right renal cortical cyst at the upper pole, unchanged. Left renal cortical cyst at the lower pole, unchanged. No adenopathy or ascites. No evidence of tumor recurrence along the surgical suture line in the rectosigmoid colon. Electronically Signed by Yared Paul MD 04/17/2019 01:07 P
== END ==
LOC: M RAD 08:40
PROVIDERS: ATTEND Internal Medicine Hematology & Oncology
DX: C18.9 Malignant neoplasm of colon, unspecified (principal); K44.9 Diaphragmatic hernia without obstruction or gangrene; J90 Pleural effusion, not elsewhere classified

== ENCOUNTER 2019-04-19 15:16 | Outpatient (CLI) | payer MEDICARE ==
[2019-04-19 15:47] LABS: BASO # 0.1 10^3/uL (0.0-0.2); BASO % 0.9 % (0.0-1.0); EOS # 0.3 10^3/uL (0.0-0.5); HEMATOCRIT 35.7 % (36.0-47.0); LYMPH # 0.8 10^3/uL (1.5-5.0); LYMPH % 12.7 % (24.0-44.0); MEAN CORPUSCULAR HEMOGLOBIN 27.5 pg (27.0-33.0); MEAN CORPUSCULAR HGB CONC 30.8 g/dl (32.0-36.5); MEAN CORPUSCULAR VOLUME 89.3 fl (80.0-96.0); MONO # 0.6 10^3/uL (0.0-0.8); MONO % 8.5 % (0.0-5.0); NEUTROPHILS # 4.7 10^3/uL (1.5-8.5); NEUTROPHILS % 72.7 % (36.0-66.0); PLATELET COUNT, AUTOMATED 244 10^3/uL (150-450); WHITE BLOOD COUNT 6.5 10^3/uL (4.0-10.0)
[2019-04-19 16:33] LABS: ALT/SGPT 17 U/L (12-78); BILIRUBIN,TOTAL 0.3 MG/DL (0.2-1.0); BLOOD UREA NITROGEN 15 MG/DL (7-18); CALCIUM LEVEL 8.2 MG/DL (8.8-10.2); CARBON DIOXIDE LEVEL 26 MEQ/L (21-32); CHLORIDE LEVEL 113 MEQ/L (98-107); CREATININE FOR GFR 0.72 MG/DL (0.55-1.30); GLOMERULAR FILTRATION RATE > 60.0 (>32); GLUCOSE, FASTING 118 MG/DL (70-100); MAGNESIUM LEVEL 0.9 MG/DL (1.8-2.4); POTASSIUM SERUM 5.3 MEQ/L (3.5-5.1); SODIUM LEVEL 143 MEQ/L (136-145); TOTAL PROTEIN 6.2 GM/DL (6.4-8.2)
== END 2019-04-19 18:04 | disposition home or self-care (01) ==
LOC: M LAB 15:16
PROVIDERS: ATTEND Internal Medicine Hematology & Oncology
DX: C18.9 Malignant neoplasm of colon, unspecified (principal)

== ENCOUNTER → 2019-04-19 | Outpatient (CLI) | payer MEDICARE ==
[~2019-04-19] VITALS: Ht 157.5 cm; Wt 80.9 kg
[~2019-04-19] MED LIST changes: +MAGNESIUM SULFATE 1 GM/100 ML D5W BAG (10MG/ML) (J3475) As Ordered ONE; +SODIUM CHLORIDE 0.9% INJ 10 ML SYR IV SCH
[2019-04-19 15:10] VITALS: BP 119/65
[2019-04-19] MEDS: MAG SULF 1GM/100ML (MAG RUN) X 2 DOSES (2GM TOTAL) IV SCH ×4 (16:19→16:52)
[2019-04-19 18:03] VITALS: BP 145/77
== END ==
LOC: M INFU 15:00
PROVIDERS: ATTEND Family Medicine
DX: E83.42 Hypomagnesemia (principal); Z88.8 Allergy status to other drugs, medicaments and biological substances
CPT/HCPCS: 36591; 80053; 83735; 85025; 96365; 96366; J1642; J3475

== ENCOUNTER → 2019-04-19 | Outpatient (CLI) | payer MEDICARE ==
[~2019-04-19] MED LIST changes: -MAGNESIUM SULFATE 1 GM/100 ML D5W BAG (10MG/ML) (J3475) As Ordered ONE; -SODIUM CHLORIDE 0.9% INJ 10 ML SYR IV SCH
== END ==
LOC: M LAB 15:08
PROVIDERS: ATTEND Family Medicine
DX: E83.42 Hypomagnesemia (principal)

== ENCOUNTER 2019-04-24 14:54 | Outpatient (CLI) | payer MEDICARE ==
[~2019-04-24] VITALS: Ht 157.5 cm; Wt 80.9 kg
[~2019-04-24 14:54] MED LIST changes: +SODIUM CHLORIDE 0.9% INJ 10 ML SYR IV SCH
[2019-04-24] MEDS ORDERED: MAGNESIUM SULFATE 1 GM/100 ML D5W BAG (10MG/ML) (J3475) As Ordered ONE (16:00)
[2019-04-24] MEDS: MAG SULF 1GM/100ML (MAG RUN) X 2 DOSES (2GM TOTAL) IV SCH ×4 (16:17→16:52)
[2019-04-24 16:29] VITALS: BP 137/64
[2019-04-24] MEDS ORDERED: SODIUM CHLORIDE 0.9% INJ 10 ML SYR IV PRN (16:45)
[2019-04-24 17:54] VITALS: BP 141/68
== END 2019-04-24 17:50 | disposition home or self-care (01) ==
LOC: M INFU 14:54
PROVIDERS: ATTEND Family Medicine
DX: E83.42 Hypomagnesemia (principal); Z88.8 Allergy status to other drugs, medicaments and biological substances
CPT/HCPCS: 36591; 83735; 96365; 96366; J3475

== ENCOUNTER 2019-04-26 13:09 | Outpatient (CLI) | payer MEDICARE ==
[~2019-04-26] VITALS: Ht 157.5 cm; Wt 80.9 kg
[2019-04-26 13:33] VITALS: BP 168/74
[2019-04-26] MEDS ORDERED: MAGNESIUM SULFATE 1 GM/100 ML D5W BAG (10MG/ML) (J3475) As Ordered ONE (14:37)
[2019-04-26] MEDS: MAG SULF 1GM/100ML (MAG RUN) X 2 DOSES (2GM TOTAL) IV SCH ×4 (14:44→15:35)
[2019-04-26] MEDS ORDERED: SODIUM CHLORIDE 0.9% INJ 10 ML SYR IV ONE (15:00)
[2019-04-26 17:00] VITALS: BP 170/71
== END 2019-04-26 17:00 | disposition home or self-care (01) ==
LOC: M INFU 13:09
PROVIDERS: ATTEND Family Medicine
DX: E83.42 Hypomagnesemia (principal); Z88.8 Allergy status to other drugs, medicaments and biological substances
CPT/HCPCS: 36591; 83735; 96365; 96366; J1642; J3475

== ENCOUNTER → 2019-04-26 | Outpatient (CLI) | payer MEDICARE ==
[~2019-04-26] MED LIST changes: -SODIUM CHLORIDE 0.9% INJ 10 ML SYR IV SCH
[2019-04-26 14:04] LABS: BASO # 0.1 10^3/uL (0.0-0.2); BASO % 0.7 % (0.0-1.0); EOS # 0.5 10^3/uL (0.0-0.5); EOS % 6.9 % (0.0-3.0); HEMATOCRIT 35.3 % (36.0-47.0); HEMOGLOBIN 10.9 g/dl (12.0-15.5); LYMPH # 0.8 10^3/uL (1.5-5.0); LYMPH % 11.4 % (24.0-44.0); MEAN CORPUSCULAR HEMOGLOBIN 28.2 pg (27.0-33.0); MEAN CORPUSCULAR HGB CONC 30.9 g/dl (32.0-36.5); MEAN CORPUSCULAR VOLUME 91.2 fl (80.0-96.0); MONO # 0.7 10^3/uL (0.0-0.8); NEUTROPHILS # 4.7 10^3/uL (1.5-8.5); NEUTROPHILS % 70.7 % (36.0-66.0); PLATELET COUNT, AUTOMATED 216 10^3/uL (150-450); RED BLOOD COUNT 3.87 10^6/uL (4.00-5.40); WHITE BLOOD COUNT 6.7 10^3/uL (4.0-10.0)
[2019-04-26 14:41] LABS: ALBUMIN 2.8 GM/DL (3.2-5.2); ALT/SGPT 13 U/L (12-78); BILIRUBIN,TOTAL 0.3 MG/DL (0.2-1.0); BLOOD UREA NITROGEN 11 MG/DL (7-18); CALCIUM LEVEL 7.4 MG/DL (8.8-10.2); CARBON DIOXIDE LEVEL 23 MEQ/L (21-32); CHLORIDE LEVEL 116 MEQ/L (98-107); CREATININE FOR GFR 0.68 MG/DL (0.55-1.30); GLOMERULAR FILTRATION RATE > 60.0 (>32); GLUCOSE, FASTING 106 MG/DL (70-100); MAGNESIUM LEVEL 0.8 MG/DL (1.8-2.4); POTASSIUM SERUM 4.6 MEQ/L (3.5-5.1); SODIUM LEVEL 144 MEQ/L (136-145); TOTAL PROTEIN 5.9 GM/DL (6.4-8.2)
== END ==
LOC: M LAB 13:21
PROVIDERS: ATTEND Internal Medicine Hematology & Oncology
DX: C18.9 Malignant neoplasm of colon, unspecified (principal)

== ENCOUNTER → 2019-04-26 | Outpatient (CLI) | payer MEDICARE | LOC: M LAB 13:13 | PROVIDERS: ATTEND Family Medicine | DX: E83.42 Hypomagnesemia (principal) ==

== ENCOUNTER 2019-04-28 11:13 | Outpatient (CLI) | payer MEDICARE ==
[~2019-04-28] VITALS: Ht 157.5 cm; Wt 80.9 kg
[~2019-04-28 11:13] MED LIST changes: +SODIUM CHLORIDE 0.9% INJ 10 ML SYR IV SCH
[2019-04-28 11:15] VITALS: BP 158/70
[2019-04-28] MEDS ORDERED: MAGNESIUM SULFATE 1 GM/100 ML D5W BAG (10MG/ML) (J3475) As Ordered ONE (12:07)
[2019-04-28] MEDS: MAGNESIUM SULFATE 1 GM/100 ML D5W BAG (10MG/ML) (J3475) IV SCH ×2 (12:13→13:02)
[2019-04-28 14:15] VITALS: BP 139/64
== END 2019-04-28 14:15 | disposition home or self-care (01) ==
LOC: M INFU 11:13
PROVIDERS: ATTEND Family Medicine
DX: E83.42 Hypomagnesemia (principal); Z88.8 Allergy status to other drugs, medicaments and biological substances
CPT/HCPCS: 36591; 83735; 96374; 96376; J1642; J3475

== ENCOUNTER 2019-05-01 12:05 | Outpatient (CLI) | payer MEDICARE ==
[~2019-05-01] VITALS: Ht 157.5 cm; Wt 80.9 kg
[2019-05-01 13:05] VITALS: BP 123/57
[2019-05-01] MEDS: MAG SULF 1GM/100ML (MAG RUN) X 2 DOSES (2GM TOTAL) IV SCH ×4 (13:27→14:22)
[2019-05-01 15:35] VITALS: BP 126/67
== END 2019-05-01 15:35 | disposition home or self-care (01) ==
LOC: M INFU 12:05
PROVIDERS: ATTEND Family Medicine
DX: E83.42 Hypomagnesemia (principal); Z88.8 Allergy status to other drugs, medicaments and biological substances
CPT/HCPCS: 36591; 83735; 96365; 96366; J1642; J3475

== ENCOUNTER 2019-05-03 13:51 | Outpatient (CLI) | payer MEDICARE ==
[~2019-05-03] VITALS: Ht 157.5 cm; Wt 80.9 kg
[~2019-05-03 13:51] MED LIST changes: +SODIUM CHLORIDE 0.9% INJ 10 ML SYR IV SCH
[2019-05-03 13:55] VITALS: BP 167/73
[2019-05-03] MEDS ORDERED: MAGNESIUM SULFATE 1 GM/100 ML D5W BAG (10MG/ML) (J3475) As Ordered ONE (15:09)
[2019-05-03] MEDS: MAG SULF 1GM/100ML (MAG RUN) X 2 DOSES (2GM TOTAL) IV SCH ×4 (15:18→16:06)
[2019-05-03 17:25] VITALS: BP 154/72
== END 2019-05-03 17:25 | disposition home or self-care (01) ==
LOC: M INFU 13:51
PROVIDERS: ATTEND Family Medicine
DX: E83.42 Hypomagnesemia (principal); Z88.8 Allergy status to other drugs, medicaments and biological substances

== ENCOUNTER → 2019-05-03 | Outpatient (CLI) | payer MEDICARE ==
[~2019-05-03] MED LIST changes: -SODIUM CHLORIDE 0.9% INJ 10 ML SYR IV SCH
[2019-05-03 15:03] LABS: BASO % 0.6 % (0.0-1.0); EOS # 0.3 10^3/uL (0.0-0.5); EOS % 5.1 % (0.0-3.0); HEMATOCRIT 34.4 % (36.0-47.0); HEMOGLOBIN 10.7 g/dl (12.0-15.5); LYMPH # 0.6 10^3/uL (1.5-5.0); LYMPH % 9.8 % (24.0-44.0); MEAN CORPUSCULAR HEMOGLOBIN 28.4 pg (27.0-33.0); MEAN CORPUSCULAR HGB CONC 31.1 g/dl (32.0-36.5); MEAN CORPUSCULAR VOLUME 91.2 fl (80.0-96.0); MONO # 0.6 10^3/uL (0.0-0.8); MONO % 8.6 % (0.0-5.0); NEUTROPHILS # 4.9 10^3/uL (1.5-8.5); NEUTROPHILS % 75.4 % (36.0-66.0); PLATELET COUNT, AUTOMATED 208 10^3/uL (150-450); RED BLOOD COUNT 3.77 10^6/uL (4.00-5.40); WHITE BLOOD COUNT 6.5 10^3/uL (4.0-10.0)
[2019-05-03 15:24] LABS: ALBUMIN 2.7 GM/DL (3.2-5.2); ALT/SGPT 12 U/L (12-78); BILIRUBIN,TOTAL 0.4 MG/DL (0.2-1.0); BLOOD UREA NITROGEN 11 MG/DL (7-18); CALCIUM LEVEL 7.5 MG/DL (8.8-10.2); CARBON DIOXIDE LEVEL 27 MEQ/L (21-32); CHLORIDE LEVEL 113 MEQ/L (98-107); CREATININE FOR GFR 0.68 MG/DL (0.55-1.30); GLOMERULAR FILTRATION RATE > 60.0 (>32); GLUCOSE, FASTING 146 MG/DL (70-100); POTASSIUM SERUM 4.2 MEQ/L (3.5-5.1); SODIUM LEVEL 144 MEQ/L (136-145); TOTAL PROTEIN 6.1 GM/DL (6.4-8.2)
== END ==
LOC: M LAB 14:02
PROVIDERS: ATTEND Internal Medicine Hematology & Oncology
DX: C18.9 Malignant neoplasm of colon, unspecified (principal); E83.42 Hypomagnesemia; Z88.8 Allergy status to other drugs, medicaments and biological substances
CPT/HCPCS: 36591; 80053; 83735; 85025; 96365; 96366; J1642; J3475

== ENCOUNTER 2019-05-05 14:58 | Outpatient (CLI) | payer MEDICARE ==
[~2019-05-05] VITALS: Ht 157.5 cm; Wt 80.9 kg
[2019-05-05 15:10] VITALS: BP 137/68
[2019-05-05] MEDS ORDERED: MAGNESIUM SULFATE 1 GM/100 ML D5W BAG (10MG/ML) (J3475) As Ordered ONE (15:18)
[2019-05-05] MEDS: MAG SULF 1GM/100ML (MAG RUN) X 2 DOSES (2GM TOTAL) IV SCH ×4 (15:49→16:16)
[2019-05-05 17:15] VITALS: BP 141/70
== END 2019-05-05 17:10 ==
LOC: M INFU 14:58
PROVIDERS: ATTEND Family Medicine
DX: E83.42 Hypomagnesemia (principal); Z88.8 Allergy status to other drugs, medicaments and biological substances
CPT/HCPCS: 36591; 83735; 96365; J1642; J3475

== ENCOUNTER 2019-05-08 10:50 | Outpatient (CLI) | payer MEDICARE ==
[~2019-05-08] VITALS: Ht 157.5 cm; Wt 80.9 kg
[2019-05-08 11:23] VITALS: BP 113/58
[2019-05-08] MEDS ORDERED: MAG SULF 1GM/100ML (MAG RUN) SINGLE DOSE IV ONE ×2 (12:00)
[2019-05-08] MEDS ORDERED: MAG SULF 1GM/100ML (MAG RUN) SINGLE DOSE IV PRN ×2 (13:00)
[2019-05-08 14:00] VITALS: BP 145/63
== END 2019-05-08 14:00 | disposition home or self-care (01) ==
LOC: M INFU 10:50
PROVIDERS: ATTEND Family Medicine
DX: E83.42 Hypomagnesemia (principal); Z88.8 Allergy status to other drugs, medicaments and biological substances
CPT/HCPCS: 36591; 83735; 96365; 96366; J1642; J3475

== ENCOUNTER 2019-05-10 13:26 | Outpatient (CLI) | payer MEDICARE ==
[~2019-05-10] VITALS: Ht 157.5 cm; Wt 80.9 kg
[~2019-05-10 13:26] MED LIST changes: +SODIUM CHLORIDE 0.9% INJ 10 ML SYR IV SCH
[2019-05-10 13:45] VITALS: BP 148/67
[2019-05-10] MEDS: MAG SULF 1GM/100ML (MAG RUN) X 2 DOSES (2GM TOTAL) IV SCH ×4 (14:45→15:35)
[2019-05-10 16:50] VITALS: BP 141/68
== END 2019-05-10 16:50 | disposition home or self-care (01) ==
LOC: M INFU 13:26
PROVIDERS: ATTEND Family Medicine
DX: E83.42 Hypomagnesemia (principal); Z88.8 Allergy status to other drugs, medicaments and biological substances

== ENCOUNTER → 2019-05-10 | Outpatient (CLI) | payer MEDICARE ==
[~2019-05-10] MED LIST changes: -SODIUM CHLORIDE 0.9% INJ 10 ML SYR IV SCH
[2019-05-10 14:07] LABS: BASO % 0.4 % (0.0-1.0); EOS # 0.4 10^3/uL (0.0-0.5); EOS % 4.6 % (0.0-3.0); HEMATOCRIT 35.9 % (36.0-47.0); HEMOGLOBIN 11.1 g/dl (12.0-15.5); LYMPH # 0.9 10^3/uL (1.5-5.0); LYMPH % 9.7 % (24.0-44.0); MEAN CORPUSCULAR HGB CONC 30.9 g/dl (32.0-36.5); MEAN CORPUSCULAR VOLUME 90.4 fl (80.0-96.0); MONO # 0.7 10^3/uL (0.0-0.8); MONO % 7.8 % (0.0-5.0); NEUTROPHILS # 6.9 10^3/uL (1.5-8.5); NEUTROPHILS % 77.2 % (36.0-66.0); PLATELET COUNT, AUTOMATED 264 10^3/uL (150-450); RED BLOOD COUNT 3.97 10^6/uL (4.00-5.40)
[2019-05-10 15:04] LABS: ALBUMIN 2.8 GM/DL (3.2-5.2); ALT/SGPT 12 U/L (12-78); BILIRUBIN,TOTAL 0.4 MG/DL (0.2-1.0); BLOOD UREA NITROGEN 12 MG/DL (7-18); CALCIUM LEVEL 7.7 MG/DL (8.8-10.2); CARBON DIOXIDE LEVEL 29 MEQ/L (21-32); CHLORIDE LEVEL 112 MEQ/L (98-107); CREATININE FOR GFR 0.82 MG/DL (0.55-1.30); GLOMERULAR FILTRATION RATE > 60.0 (>32); GLUCOSE, FASTING 131 MG/DL (70-100); POTASSIUM SERUM 4.8 MEQ/L (3.5-5.1); SODIUM LEVEL 142 MEQ/L (136-145); TOTAL PROTEIN 6.3 GM/DL (6.4-8.2)
== END ==
LOC: M LAB 13:36
PROVIDERS: ATTEND Internal Medicine Hematology & Oncology
DX: C18.9 Malignant neoplasm of colon, unspecified (principal); E83.42 Hypomagnesemia; Z88.8 Allergy status to other drugs, medicaments and biological substances
CPT/HCPCS: 80053; 83735; 85025; 96365; 96366; J1642; J3475

== ENCOUNTER 2019-05-12 13:15 | Outpatient (CLI) | payer MEDICARE ==
[~2019-05-12] VITALS: Ht 157.5 cm; Wt 80.9 kg
[2019-05-12 13:15] VITALS: BP 158/69
[2019-05-12] MEDS ORDERED: MAGNESIUM SULFATE 1 GM/100 ML D5W BAG (10MG/ML) (J3475) As Ordered ONE (13:56)
[2019-05-12] MEDS ORDERED: MAG SULF 1GM/100ML (MAG RUN) SINGLE DOSE IV ONE ×2 (14:15)
[2019-05-12 15:22] VITALS: BP 147/85
== END 2019-05-12 15:20 | disposition home or self-care (01) ==
LOC: M INFU 13:15
PROVIDERS: ATTEND Family Medicine
DX: E83.42 Hypomagnesemia (principal); Z88.8 Allergy status to other drugs, medicaments and biological substances
CPT/HCPCS: 36591; 83735; 96365; J1642; J3475

== ENCOUNTER → 2019-05-15 | Outpatient (CLI) | payer MEDICARE ==
[~2019-05-15] VITALS: Ht 157.5 cm; Wt 80.9 kg
[~2019-05-15] MED LIST changes: +MAG SULF 1GM/100ML (MAG RUN) SINGLE DOSE IV ONE; +MAG SULF 1GM/100ML (MAG RUN) SINGLE DOSE IV PRN; +MAGNESIUM SULFATE 1 GM/100 ML D5W BAG (10MG/ML) (J3475) As Ordered ONE
[2019-05-15 14:22] VITALS: BP 156/70
[2019-05-15 16:00] VITALS: BP 154/64
== END ==
LOC: M INFU 12:56
PROVIDERS: ATTEND Family Medicine
DX: E83.42 Hypomagnesemia (principal); Z88.8 Allergy status to other drugs, medicaments and biological substances
CPT/HCPCS: 36591; 83735; 96365; 96366; J1642; J3475

== ENCOUNTER 2019-05-17 14:43 | Outpatient (CLI) | payer MEDICARE ==
[~2019-05-17] VITALS: Ht 157.5 cm; Wt 80.9 kg
[2019-05-17 14:45] VITALS: BP 137/67
[2019-05-17] MEDS ORDERED: MAG SULF 1GM/100ML (MAG RUN) SINGLE DOSE IV ONE ×2 (15:30)
[2019-05-17] MEDS ORDERED: SODIUM CHLORIDE 0.9% INJ 10 ML SYR IV ONE (16:00)
== END 2019-05-17 16:59 | disposition home or self-care (01) ==
LOC: M INFU 14:43
PROVIDERS: ATTEND Family Medicine
DX: E83.42 Hypomagnesemia (principal); Z88.8 Allergy status to other drugs, medicaments and biological substances

== ENCOUNTER → 2019-05-17 | Outpatient (CLI) | payer MEDICARE ==
[~2019-05-17] MED LIST changes: -MAG SULF 1GM/100ML (MAG RUN) SINGLE DOSE IV ONE; -MAG SULF 1GM/100ML (MAG RUN) SINGLE DOSE IV PRN; -MAGNESIUM SULFATE 1 GM/100 ML D5W BAG (10MG/ML) (J3475) As Ordered ONE; -SODIUM CHLORIDE 0.9% INJ 10 ML SYR IV SCH
[2019-05-17 15:26] LABS: BASO # 0.1 10^3/uL (0.0-0.2); BASO % 0.6 % (0.0-1.0); EOS # 0.4 10^3/uL (0.0-0.5); EOS % 5.3 % (0.0-3.0); HEMATOCRIT 36.7 % (36.0-47.0); HEMOGLOBIN 11.4 g/dl (12.0-15.5); LYMPH # 0.8 10^3/uL (1.5-5.0); LYMPH % 9.8 % (24.0-44.0); MEAN CORPUSCULAR HGB CONC 31.1 g/dl (32.0-36.5); MEAN CORPUSCULAR VOLUME 90.2 fl (80.0-96.0); MONO # 0.7 10^3/uL (0.0-0.8); MONO % 8.2 % (0.0-5.0); NEUTROPHILS # 6.2 10^3/uL (1.5-8.5); NEUTROPHILS % 75.7 % (36.0-66.0); PLATELET COUNT, AUTOMATED 296 10^3/uL (150-450); RED BLOOD COUNT 4.07 10^6/uL (4.00-5.40); WHITE BLOOD COUNT 8.1 10^3/uL (4.0-10.0)
[2019-05-17 15:54] LABS: ALBUMIN 2.8 GM/DL (3.2-5.2); ALT/SGPT 14 U/L (12-78); BILIRUBIN,TOTAL 0.3 MG/DL (0.2-1.0); BLOOD UREA NITROGEN 13 MG/DL (7-18); CALCIUM LEVEL 8.4 MG/DL (8.8-10.2); CARBON DIOXIDE LEVEL 25 MEQ/L (21-32); CHLORIDE LEVEL 112 MEQ/L (98-107); CREATININE FOR GFR 0.85 MG/DL (0.55-1.30); GLOMERULAR FILTRATION RATE > 60.0 (>32); GLUCOSE, FASTING 107 MG/DL (70-100); MAGNESIUM LEVEL 1.2 MG/DL (1.8-2.4); POTASSIUM SERUM 5.2 MEQ/L (3.5-5.1); SODIUM LEVEL 143 MEQ/L (136-145); TOTAL PROTEIN 6.5 GM/DL (6.4-8.2)
== END ==
LOC: M LAB 14:47
PROVIDERS: ATTEND Internal Medicine Hematology & Oncology
DX: C18.9 Malignant neoplasm of colon, unspecified (principal); E83.42 Hypomagnesemia; Z88.8 Allergy status to other drugs, medicaments and biological substances
CPT/HCPCS: 80053; 83735; 85025; 96365; J1642; J3475

== ENCOUNTER 2019-05-19 10:14 | Outpatient (CLI) | payer MEDICARE ==
[~2019-05-19] VITALS: Ht 157.5 cm; Wt 80.9 kg
[~2019-05-19 10:14] MED LIST changes: +SODIUM CHLORIDE 0.9% INJ 10 ML SYR IV SCH
[2019-05-19 10:15] VITALS: BP 114/53
[2019-05-19] MEDS ORDERED: MAG SULF 1GM/100ML (MAG RUN) SINGLE DOSE IV ONE ×2 (12:00)
[2019-05-19 12:20] VITALS: BP 140/66
[2019-05-19] MEDS ORDERED: MAG SULF 1GM/100ML (MAG RUN) SINGLE DOSE IV PRN ×2 (13:00)
== END 2019-05-19 12:20 | disposition home or self-care (01) ==
LOC: M INFU 10:14
PROVIDERS: ATTEND Family Medicine
DX: E83.42 Hypomagnesemia (principal)
CPT/HCPCS: 36591; 83735; 96365; J1642; J3475

== ENCOUNTER 2019-05-22 13:15 | Outpatient (CLI) | payer MEDICARE ==
[~2019-05-22] VITALS: Ht 157.5 cm; Wt 80.9 kg
[2019-05-22 13:20] VITALS: BP 135/68
[2019-05-22] MEDS ORDERED: MAG SULF 1GM/100ML (MAG RUN) SINGLE DOSE IV ONE ×2 (14:30)
[2019-05-22 16:00] VITALS: BP 158/97
== END 2019-05-22 16:20 | disposition home or self-care (01) ==
LOC: M INFU 13:15
PROVIDERS: ATTEND Family Medicine
DX: E83.42 Hypomagnesemia (principal); Z88.8 Allergy status to other drugs, medicaments and biological substances
CPT/HCPCS: 36591; 83735; 96365; J1642; J3475

== ENCOUNTER 2019-05-24 13:02 | Outpatient (CLI) | payer MEDICARE ==
[~2019-05-24] VITALS: Ht 157.5 cm; Wt 80.0 kg
[2019-05-24 13:10] VITALS: BP 145/68
[2019-05-24] MEDS ORDERED: MAG SULF 1GM/100ML (MAG RUN) SINGLE DOSE IV ONE ×2 (14:00)
[2019-05-24] MEDS ORDERED: MAG SULF 1GM/100ML (MAG RUN) SINGLE DOSE IV PRN ×2 (15:00)
[2019-05-24 15:20] VITALS: BP 148/74
== END 2019-05-24 15:30 | disposition home or self-care (01) ==
LOC: M INFU 13:02
PROVIDERS: ATTEND Family Medicine
DX: E83.42 Hypomagnesemia (principal); Z88.8 Allergy status to other drugs, medicaments and biological substances
CPT/HCPCS: 36591; 83735; 96365; J1642; J3475

== ENCOUNTER 2019-05-26 14:59 | Outpatient (CLI) | payer MEDICARE ==
[~2019-05-26] VITALS: Ht 157.5 cm; Wt 80.9 kg
[~2019-05-26 14:59] MED LIST changes: -SODIUM CHLORIDE 0.9% INJ 10 ML SYR IV SCH
[2019-05-26 15:00] VITALS: BP 162/74
[2019-05-26] MEDS ORDERED: MAGNESIUM SULFATE 1GM/100ML D5W BAG (10MG/ML) As Ordered ONE (16:01)
[2019-05-26] MEDS ORDERED: SODIUM CHLORIDE 0.9% INJ 10 ML SYR IV ONE (17:00)
[2019-05-26] MEDS ORDERED: MAG SULF 1GM/100ML (MAG RUN) SINGLE DOSE IV ONE ×2 (17:00)
[2019-05-26 17:10] VITALS: BP 152/63
== END 2019-05-26 17:10 | disposition home or self-care (01) ==
LOC: M INFU 14:59
PROVIDERS: ATTEND Family Medicine
DX: E83.42 Hypomagnesemia (principal)
CPT/HCPCS: 36591; 83735; 96365; J1642; J3475

== ENCOUNTER 2019-05-29 15:05 | Outpatient (CLI) | payer MEDICARE ==
[~2019-05-29] VITALS: Ht 157.5 cm; Wt 80.9 kg
[~2019-05-29 15:05] MED LIST changes: +SODIUM CHLORIDE 0.9% INJ 10 ML SYR IV SCH
[2019-05-29 15:10] VITALS: BP 167/76
[2019-05-29] MEDS ORDERED: MAG SULF 1GM/100ML (MAG RUN) SINGLE DOSE IV ONE ×2 (15:15)
[2019-05-29 17:00] VITALS: BP 148/72
== END 2019-05-29 17:00 | disposition home or self-care (01) ==
LOC: M INFU 15:05
PROVIDERS: ATTEND Family Medicine
DX: E83.42 Hypomagnesemia (principal)
CPT/HCPCS: 36591; 83735; 96365; J1642; J3475

== ENCOUNTER 2019-05-31 14:38 | Outpatient (CLI) | payer MEDICARE ==
[~2019-05-31] VITALS: Ht 157.5 cm; Wt 80.9 kg
[~2019-05-31 14:38] MED LIST changes: +MAG SULF 1GM/100ML (MAG RUN) SINGLE DOSE IV ONE; +SODIUM CHLORIDE 0.9% INJ 10 ML SYR IV SCH
[2019-05-31 14:50] VITALS: BP 126/59
[2019-05-31 15:13] LABS: HEMATOCRIT 36.9 % (36.0-47.0); HEMOGLOBIN 11.5 g/dl (12.0-15.5); MEAN CORPUSCULAR HEMOGLOBIN 28.1 pg (27.0-33.0); MEAN CORPUSCULAR HGB CONC 31.2 g/dl (32.0-36.5); MEAN CORPUSCULAR VOLUME 90.2 fl (80.0-96.0); PLATELET COUNT, AUTOMATED 239 10^3/uL (150-450); RED BLOOD COUNT 4.09 10^6/uL (4.00-5.40); WHITE BLOOD COUNT 6.5 10^3/uL (4.0-10.0)
[2019-05-31 15:53] LABS: ALBUMIN 2.9 GM/DL (3.2-5.2); BILIRUBIN,TOTAL 0.3 MG/DL (0.2-1.0); CALCIUM LEVEL 8.4 MG/DL (8.8-10.2); CREATININE FOR GFR 0.98 MG/DL (0.55-1.30); FREE T4 0.97 NG/DL (0.76-1.46); GLOMERULAR FILTRATION RATE 57.7 (>32); MAGNESIUM LEVEL 1.4 MG/DL (1.8-2.4); POTASSIUM SERUM 4.4 MEQ/L (3.5-5.1); THYROID STIMULATING HORMONE 4.24 uIU/ML (0.358-3.740); TOTAL PROTEIN 6.8 GM/DL (6.4-8.2)
[2019-05-31 16:55] VITALS: BP 118/60
== END 2019-05-31 16:55 | disposition home or self-care (01) ==
LOC: M INFU 14:38
PROVIDERS: ATTEND Family Medicine
DX: E83.42 Hypomagnesemia (principal); Z88.8 Allergy status to other drugs, medicaments and biological substances; E03.9 Hypothyroidism, unspecified
CPT/HCPCS: 36591; 80053; 83735; 84439; 84443; 85027; 96365; J1642; J3475

== ENCOUNTER → 2019-05-31 | Outpatient (CLI) | payer MEDICARE ==
[~2019-05-31] MED LIST changes: -SODIUM CHLORIDE 0.9% INJ 10 ML SYR IV SCH
== END ==
LOC: M LAB 14:44
PROVIDERS: ATTEND Internal Medicine Hematology & Oncology
DX: C18.9 Malignant neoplasm of colon, unspecified (principal)

== ENCOUNTER 2019-06-02 10:12 | Outpatient (CLI) | payer MEDICARE ==
[~2019-06-02] VITALS: Ht 157.5 cm; Wt 80.9 kg
[~2019-06-02 10:12] MED LIST changes: -MAG SULF 1GM/100ML (MAG RUN) SINGLE DOSE IV ONE
[2019-06-02 10:15] VITALS: BP 151/69
[2019-06-02] MEDS ORDERED: MAG SULF 1GM/100ML (MAG RUN) SINGLE DOSE IV ONE ×2 (10:30)
[2019-06-02 12:05] VITALS: BP 136/60
[2019-07-31] MEDS ORDERED: VITAD1000T PO (03:30)
== END 2019-06-02 12:05 | disposition home or self-care (01) ==
LOC: M INFU 10:12
PROVIDERS: ATTEND Family Medicine
DX: E83.42 Hypomagnesemia (principal); Z88.8 Allergy status to other drugs, medicaments and biological substances
CPT/HCPCS: 36415; 83735; 96365; J1642; J3475

== ENCOUNTER 2019-06-05 14:38 | Outpatient (CLI) | payer MEDICARE ==
[~2019-06-05] VITALS: Ht 157.5 cm; Wt 80.9 kg
[2019-06-05 14:45] VITALS: BP_SYST 150; BP_SYST 181; BP_DIAS 67; BP_DIAS 80
[2019-06-05] MEDS ORDERED: MAG SULF 1GM/100ML (MAG RUN) SINGLE DOSE IV ONE ×2 (15:30)
== END 2019-06-05 16:50 | disposition home or self-care (01) ==
LOC: M INFU 14:38
PROVIDERS: ATTEND Family Medicine
DX: E83.42 Hypomagnesemia (principal); Z88.8 Allergy status to other drugs, medicaments and biological substances
CPT/HCPCS: 36591; 83735; 96365; J1642; J3475

== ENCOUNTER 2019-06-07 14:46 | Outpatient (CLI) | payer MEDICARE ==
[~2019-06-07] VITALS: Ht 157.5 cm; Wt 80.9 kg
[~2019-06-07 14:46] MED LIST changes: +SODIUM CHLORIDE 0.9% INJ 10 ML SYR IV PRN
[2019-06-07 14:50] VITALS: BP 136/67
[2019-06-07] MEDS ORDERED: MAG SULF 1GM/100ML (MAG RUN) SINGLE DOSE IV ONE ×2 (15:00)
[2019-06-07 15:20] LABS: BASO # 0.1 10^3/uL (0.0-0.2); BASO % 0.9 % (0.0-1.0); EOS # 0.5 10^3/uL (0.0-0.5); EOS % 8.1 % (0.0-3.0); HEMATOCRIT 38.1 % (36.0-47.0); HEMOGLOBIN 11.7 g/dl (12.0-15.5); LYMPH # 0.8 10^3/uL (1.5-5.0); LYMPH % 11.9 % (24.0-44.0); MEAN CORPUSCULAR HEMOGLOBIN 28.1 pg (27.0-33.0); MEAN CORPUSCULAR HGB CONC 30.7 g/dl (32.0-36.5); MEAN CORPUSCULAR VOLUME 91.6 fl (80.0-96.0); MONO # 0.6 10^3/uL (0.0-0.8); MONO % 9.6 % (0.0-5.0); NEUTROPHILS # 4.6 10^3/uL (1.5-8.5); PLATELET COUNT, AUTOMATED 241 10^3/uL (150-450); RED BLOOD COUNT 4.16 10^6/uL (4.00-5.40); WHITE BLOOD COUNT 6.7 10^3/uL (4.0-10.0)
[2019-06-07 15:51] LABS: ALBUMIN 3.1 GM/DL (3.2-5.2); BILIRUBIN,TOTAL 0.3 MG/DL (0.2-1.0); CALCIUM LEVEL 8.7 MG/DL (8.8-10.2); GLOMERULAR FILTRATION RATE 56.4 (>32); POTASSIUM SERUM 4.5 MEQ/L (3.5-5.1); TOTAL PROTEIN 6.9 GM/DL (6.4-8.2)
[2019-06-07 15:57] LABS: FREE T4 1.02 NG/DL (0.76-1.46); THYROID STIMULATING HORMONE 3.75 uIU/ML (0.358-3.740)
[2019-06-07 17:15] VITALS: BP 166/70
== END 2019-06-07 17:15 | disposition home or self-care (01) ==
LOC: M INFU 14:46
PROVIDERS: ATTEND Family Medicine
DX: E83.42 Hypomagnesemia (principal); Z88.8 Allergy status to other drugs, medicaments and biological substances; E03.9 Hypothyroidism, unspecified
CPT/HCPCS: 36591; 80053; 83735; 84439; 84443; 85025; 96365; J1642; J3475

== ENCOUNTER 2019-06-12 14:55 | Outpatient (CLI) | payer MEDICARE ==
[~2019-06-12] VITALS: Ht 157.5 cm; Wt 80.9 kg
[~2019-06-12 14:55] MED LIST changes: -SODIUM CHLORIDE 0.9% INJ 10 ML SYR IV PRN
[2019-06-12 16:00] VITALS: BP 157/72
[2019-06-12] MEDS ORDERED: MAG SULF 1GM/100ML (MAG RUN) X 2 DOSES (2GM TOTAL) IV ONE ×2 (16:00)
== END 2019-06-12 16:00 | disposition home or self-care (01) ==
LOC: M INFU 14:55
PROVIDERS: ATTEND Family Medicine
DX: E83.42 Hypomagnesemia (principal); Z88.8 Allergy status to other drugs, medicaments and biological substances
CPT/HCPCS: 36591; 83735; J1642

== ENCOUNTER 2019-06-14 14:48 | Outpatient (CLI) | payer MEDICARE ==
[~2019-06-14] VITALS: Ht 157.5 cm; Wt 80.9 kg
[2019-06-14 14:55] VITALS: BP 128/60
[2019-06-14 15:27] LABS: BASO # 0.1 10^3/uL (0.0-0.2); BASO % 0.7 % (0.0-1.0); EOS # 0.4 10^3/uL (0.0-0.5); EOS % 5.9 % (0.0-3.0); HEMATOCRIT 39.2 % (36.0-47.0); HEMOGLOBIN 12.1 g/dl (12.0-15.5); LYMPH # 0.7 10^3/uL (1.5-5.0); LYMPH % 10.7 % (24.0-44.0); MEAN CORPUSCULAR HGB CONC 30.9 g/dl (32.0-36.5); MEAN CORPUSCULAR VOLUME 90.7 fl (80.0-96.0); MONO # 0.6 10^3/uL (0.0-0.8); MONO % 8.8 % (0.0-5.0); NEUTROPHILS % 73.6 % (36.0-66.0); PLATELET COUNT, AUTOMATED 246 10^3/uL (150-450); RED BLOOD COUNT 4.32 10^6/uL (4.00-5.40); WHITE BLOOD COUNT 6.7 10^3/uL (4.0-10.0)
[2019-06-14 15:56] LABS: ALBUMIN 3.2 GM/DL (3.2-5.2); ALT/SGPT 16 U/L (12-78); BILIRUBIN,TOTAL 0.4 MG/DL (0.2-1.0); BLOOD UREA NITROGEN 22 MG/DL (7-18); CALCIUM LEVEL 8.8 MG/DL (8.8-10.2); CARBON DIOXIDE LEVEL 23 MEQ/L (21-32); CHLORIDE LEVEL 109 MEQ/L (98-107); CREATININE FOR GFR 0.88 MG/DL (0.55-1.30); FREE T4 1.05 NG/DL (0.76-1.46); GLOMERULAR FILTRATION RATE > 60.0 (>32); GLUCOSE, FASTING 113 MG/DL (70-100); POTASSIUM SERUM 4.3 MEQ/L (3.5-5.1); SODIUM LEVEL 141 MEQ/L (136-145)
[2019-06-14] MEDS ORDERED: MAG SULF 1GM/100ML (MAG RUN) SINGLE DOSE IV ONE ×2 (16:00)
[2019-06-14 17:15] VITALS: BP 142/65
== END 2019-06-14 17:10 | disposition home or self-care (01) ==
LOC: M INFU 14:48
PROVIDERS: ATTEND Family Medicine
DX: E83.42 Hypomagnesemia (principal); E03.9 Hypothyroidism, unspecified
CPT/HCPCS: 36591; 80053; 83735; 84439; 84443; 85025; 96365; J1642; J3475

== ENCOUNTER 2019-06-16 14:51 | Outpatient (CLI) | payer MEDICARE ==
[~2019-06-16] VITALS: Ht 157.5 cm; Wt 80.9 kg
[~2019-06-16 14:51] MED LIST changes: -SODIUM CHLORIDE 0.9% INJ 10 ML SYR IV SCH
[2019-06-16 15:00] VITALS: BP 140/68
[2019-06-16] MEDS ORDERED: MAGNESIUM SULFATE 1GM/100ML D5W BAG (10MG/ML) As Ordered ONE (16:07)
[2019-06-16] MEDS ORDERED: SODIUM CHLORIDE 0.9% INJ 10 ML SYR IV PRN (16:15)
[2019-06-16] MEDS ORDERED: MAG SULF 1GM/100ML (MAG RUN) SINGLE DOSE IV ONE ×2 (17:00)
[2019-06-16 17:15] VITALS: BP 136/62
[2019-06-17] MEDS ORDERED: SODIUM CHLORIDE 0.9% INJ 10 ML SYR IV SCH (09:00)
== END 2019-06-16 17:20 | disposition home or self-care (01) ==
LOC: M INFU 14:51
PROVIDERS: ATTEND Family Medicine
DX: E83.42 Hypomagnesemia (principal); Z88.8 Allergy status to other drugs, medicaments and biological substances
CPT/HCPCS: 36591; 83735; 96365; J1642; J3475

== ENCOUNTER 2019-06-19 14:56 | Outpatient (CLI) | payer MEDICARE ==
[~2019-06-19] VITALS: Ht 157.5 cm; Wt 80.9 kg
[2019-06-19 13:05] VITALS: BP 133/59
[2019-06-19] MEDS ORDERED: MAG SULF 1GM/100ML (MAG RUN) SINGLE DOSE IV ONE ×2 (15:15)
[2019-06-19] MEDS ORDERED: SODIUM CHLORIDE 0.9% INJ 10 ML SYR IV PRN (15:45)
[2019-06-20] MEDS ORDERED: SODIUM CHLORIDE 0.9% INJ 10 ML SYR IV SCH (09:00)
== END 2019-06-19 15:50 | disposition home or self-care (01) ==
LOC: M INFU 14:56
PROVIDERS: ATTEND Family Medicine
DX: E83.42 Hypomagnesemia (principal)
CPT/HCPCS: 36591; 83735; J1642

== ENCOUNTER 2019-06-21 13:40 | Outpatient (CLI) | payer MEDICARE ==
[~2019-06-21] VITALS: Ht 157.5 cm; Wt 80.9 kg
[2019-06-21 13:45] VITALS: BP 134/61
[2019-06-21] MEDS ORDERED: MAGNESIUM SULFATE 1GM/100ML D5W BAG (10MG/ML) As Ordered ONE (14:37)
[2019-06-21] MEDS ORDERED: SODIUM CHLORIDE 0.9% INJ 10 ML SYR IV PRN (14:45)
[2019-06-21] MEDS ORDERED: MAG SULF 1GM/100ML (MAG RUN) SINGLE DOSE IV ONE ×2 (14:45)
[2019-06-21 15:35] VITALS: BP 142/64
[2019-06-22] MEDS ORDERED: SODIUM CHLORIDE 0.9% INJ 10 ML SYR IV SCH (09:00)
== END 2019-06-21 15:35 | disposition home or self-care (01) ==
LOC: M INFU 13:40
PROVIDERS: ATTEND Family Medicine
DX: E83.42 Hypomagnesemia (principal)
CPT/HCPCS: 36591; 83735; 96365; J1642; J3475

== ENCOUNTER 2019-06-23 13:34 | Outpatient (CLI) | payer MEDICARE ==
[~2019-06-23] VITALS: Ht 157.5 cm; Wt 80.9 kg
[~2019-06-23 13:34] MED LIST changes: +SODIUM CHLORIDE 0.9% INJ 10 ML SYR IV SCH
[2019-06-23 13:40] VITALS: BP 104/58
[2019-06-23 15:10] VITALS: BP 120/61
== END 2019-06-23 15:10 | disposition home or self-care (01) ==
LOC: M INFU 13:34
PROVIDERS: ATTEND Family Medicine
DX: E83.42 Hypomagnesemia (principal)
CPT/HCPCS: 36415; 83735; J1642

== ENCOUNTER 2019-06-26 13:32 | Outpatient (CLI) | payer MEDICARE ==
[~2019-06-26] VITALS: Ht 157.5 cm; Wt 80.9 kg
[~2019-06-26 13:32] MED LIST changes: -SODIUM CHLORIDE 0.9% INJ 10 ML SYR IV SCH
[2019-06-26 14:00] VITALS: BP 135/61
[2019-06-26] MEDS ORDERED: SODIUM CHLORIDE 0.9% INJ 10 ML SYR IV PRN (14:30)
[2019-06-26] MEDS: SODIUM CHLORIDE 0.9% INJ 10 ML SYR IV SCH (14:33)
[2019-06-26 14:42] VITALS: BP 138/60
== END 2019-06-26 14:42 | disposition home or self-care (01) ==
LOC: M INFU 13:32
PROVIDERS: ATTEND Family Medicine
DX: E83.42 Hypomagnesemia (principal)
CPT/HCPCS: 36591; 83735; J1642

== ENCOUNTER 2019-07-05 13:14 | Outpatient (CLI) | payer MEDICARE ==
[~2019-07-05] VITALS: Ht 157.5 cm; Wt 80.9 kg
[2019-07-05 13:20] VITALS: BP 105/59
[2019-07-05] MEDS ORDERED: SODIUM CHLORIDE 0.9% INJ 10 ML SYR IV PRN (13:30)
[2019-07-05] MEDS ORDERED: MAG SULF 1GM/100ML (MAG RUN) SINGLE DOSE IV ONE ×2 (14:45)
[2019-07-06] MEDS ORDERED: SODIUM CHLORIDE 0.9% INJ 10 ML SYR IV SCH (09:00)
== END 2019-07-05 14:45 | disposition home or self-care (01) ==
LOC: M INFU 13:14
PROVIDERS: ATTEND Family Medicine
DX: E83.42 Hypomagnesemia (principal); C18.9 Malignant neoplasm of colon, unspecified; D72.828 Other elevated white blood cell count; E03.9 Hypothyroidism, unspecified; Z88.8 Allergy status to other drugs, medicaments and biological substances
CPT/HCPCS: 36415; 83735; J1642

== ENCOUNTER 2019-07-12 14:55 | Outpatient (CLI) | payer MEDICARE ==
[~2019-07-12] VITALS: Ht 157.5 cm; Wt 80.9 kg
[~2019-07-12 14:55] MED LIST changes: +SODIUM CHLORIDE 0.9% INJ 10 ML SYR IV SCH
[2019-07-12 15:00] VITALS: BP 133/63
== END 2019-07-12 15:55 | disposition home or self-care (01) ==
LOC: M INFU 14:55
PROVIDERS: ATTEND Family Medicine
DX: E83.42 Hypomagnesemia (principal); Z88.8 Allergy status to other drugs, medicaments and biological substances
CPT/HCPCS: 36415; 83735; J1642

== ENCOUNTER 2019-07-18 14:59 | Outpatient (CLI) | payer MEDICARE ==
[~2019-07-18] VITALS: Ht 157.5 cm; Wt 80.9 kg
[2019-07-18 15:00] VITALS: BP 139/86
[2019-07-18] MEDS ORDERED: MAG SULF 1GM/100ML (MAG RUN) SINGLE DOSE IV ONE ×2 (15:45)
[2019-07-18] MEDS ORDERED: SODIUM CHLORIDE 0.9% INJ 10 ML SYR IV PRN (16:15)
== END 2019-07-18 16:20 | disposition home or self-care (01) ==
LOC: M INFU 14:59
PROVIDERS: ATTEND Family Medicine
DX: E83.42 Hypomagnesemia (principal)

== ENCOUNTER 2019-07-28 13:49 | Outpatient (CLI) | payer MEDICARE ==
[~2019-07-28] VITALS: Ht 157.5 cm; Wt 80.9 kg
[2019-07-28 14:08] VITALS: BP 106/67
[2019-07-28 15:00] VITALS: BP 110/58
[2019-07-31] MEDS ORDERED: VITAD1000T PO (03:30)
== END 2019-07-28 15:00 | disposition home or self-care (01) ==
LOC: M INFU 13:49
PROVIDERS: ATTEND Family Medicine
DX: E83.42 Hypomagnesemia (principal)

== ENCOUNTER 2019-07-30 21:32 | Inpatient (IN) | payer MEDICARE ==
[~2019-07-30] VITALS: Ht 157.5 cm; Wt 82.0 kg
[~2019-07-30 21:32] MED LIST changes: -AMIO200T PO; +AMIO200T3 PO; +ASPI-546 PO; -ASPI1TAB15 PO; -ASPI81TA85 PO; +ASPI81TA86 PO; +ISOS1TAB35 PO; +ISOS1TAB36 PO; -ISOS30TA4 PO; -ISOS60TA2 PO; -MAG400TA PO; +MAGN400T35 PO; -SODIUM CHLORIDE 0.9% INJ 10 ML SYR IV SCH
[2019-07-30] MEDS ORDERED: ACETAMINOPHEN 325 MG TAB PO ONE (22:00)
[2019-07-30] MEDS ORDERED: GI COCKTAIL 50ML BTL(HYOSCYAMINE/MAALOX/LIDOCAINE VISCOUS)(1:3:1) PO ONE (22:00)
[2019-07-30] MEDS: NS 1,000 ML IV SCH (22:10)
[2019-07-30 22:11] LABS: BASO % 0.2 % (0.0-1.0); HEMATOCRIT 37.7 % (36.0-47.0); LYMPH # 0.4 10^3/uL (1.5-5.0); LYMPH % 2.8 % (24.0-44.0); MEAN CORPUSCULAR HEMOGLOBIN 27.8 pg (27.0-33.0); MEAN CORPUSCULAR HGB CONC 31.8 g/dl (32.0-36.5); MEAN CORPUSCULAR VOLUME 87.5 fl (80.0-96.0); MONO % 7.8 % (0.0-5.0); NEUTROPHILS # 11.5 10^3/uL (1.5-8.5); NEUTROPHILS % 88.7 % (36.0-66.0); PLATELET COUNT, AUTOMATED 153 10^3/uL (150-450); RED BLOOD COUNT 4.31 10^6/uL (4.00-5.40); WHITE BLOOD COUNT 12.9 10^3/uL (4.0-10.0)
[2019-07-30 22:25] LABS: INR 1.89; PROTHROMBIN TIME 21.5 SECONDS (11.8-14.0)
[2019-07-30 22:49] LABS: ALBUMIN 2.6 GM/DL (3.2-5.2); ALT/SGPT 328 U/L (12-78); BILIRUBIN,DIRECT 3.4 MG/DL (0.0-0.2); BLOOD UREA NITROGEN 12 MG/DL (7-18); CALCIUM LEVEL 8.2 MG/DL (8.8-10.2); CARBON DIOXIDE LEVEL 22 MEQ/L (21-32); CHLORIDE LEVEL 106 MEQ/L (98-107); CK-MB VALUE MASS < 1.0 NG/ML (<3.6); CPK CREATINE PHOSPHOKINASE 37 U/L (26-192); CREATININE FOR GFR 0.94 MG/DL (0.55-1.30); GLOMERULAR FILTRATION RATE > 60.0 (>32); GLUCOSE, FASTING 151 MG/DL (70-100); LIPASE 101 U/L (73-393); POTASSIUM SERUM 3.7 MEQ/L (3.5-5.1); SODIUM LEVEL 136 MEQ/L (136-145); TOTAL PROTEIN 6.1 GM/DL (6.4-8.2); TROPONIN I 0.06 NG/ML (< 0.10)
[2019-07-31] MEDS ORDERED: ISOVUE-370 76% 100ML VIAL As Ordered ONE (00:18)
--- NOTE | 2019-07-31 00:42 | REPVR ---
PROCEDURE INFORMATION: Exam: US Abdomen Limited, Right Upper Quadrant Exam date and time: 07/30/2019 11:56 PM Age: 84 years old Clinical indication: Abdominal pain; Epigastric; Prior surgery; Surgery date: 6+ months; Surgery type: Cbd stent, cholecystectomy; Additional info: Ruq TECHNIQUE: Imaging protocol: Real-time ultrasound of the abdomen with image documentation. Examination was focused on the right upper quadrant. COMPARISON: 1. Abdomen, limited US 09/09/2017 12:[address] ABD PELVIS W/O FOL BY WIT 04/17/2019 10:53:56 AM FINDINGS: Liver: Multiple areas of hyperechogenicity are identified within the right lobe of the liver, with suggested pneumobilia. Within the right hepatic lobe, there is a peripherally hyperechoic mass measuring 2.6 x 2.0 cm. Two additional hepatic lesions are identified more medially involving the right hepatic lobe, which are iso- to hypoechoic. These measure 1.3 x 1.0 and 1.6 x 1.4 cm. These findings are concerning for metastatic lesions. Gallbladder: The gallbladder is absent. Common bile duct: The common bile duct measures 9-10 mm in diameter, which is dilated. An extrahepatic biliary stent is confirmed on recent CT images. Pancreas: The pancreas is obscured by bowel gas. Right kidney: The right kidney measures 11.2 x 4.5 x 5.3 cm. At the upper pole of the right kidney, a hypoechoic simple appearing cyst is visualized measuring 2.8 x 2.1 x 2.1 cm. Evaluation of the right kidney is technically limited. IMPRESSION: 1. Multiple areas of hyperechogenicity are identified within the right lobe of the liver, with suggested pneumobilia. Within the right hepatic lobe, there is a peripherally hyperechoic mass measuring 2.6 x 2.0 cm. Two additional hepatic lesions are identified more medially involving the right hepatic lobe. These findings are concerning for metastatic lesions. 2. The common bile duct measures 9-10 mm in diameter, which is dilated. An extrahepatic biliary stent is confirmed on recent CT images. 3. Cholecystectomy. 4. At the upper pole of the right kidney, a simple appearing cyst is visualized. 5. Additional findings described above. COMMENTS: Consistent with the [employer]'s Incidental Findings Committee white paper (J Am Mariam Radiol 2018): Any incidental renal lesion less than 1.0 cm or classified as too small to characterize, or any incidental cystic renal lesion characterized as simple-appearing, is likely benign. No follow-up imaging is recommended for these lesions per consensus recommendations based on imaging criteria. Electronically signed by: Robert Tsai On 07/31/2019 00:41:46 AM
--- NOTE | 2019-07-31 01:17 | REPVR ---
PROCEDURE INFORMATION: Exam: CT Abdomen And Pelvis With Contrast Exam date and time: 07/31/2019 12:37 AM Age: 84 years old Clinical indication: Abdominal pain; Additional info: Abd pain TECHNIQUE: Imaging protocol: Computed tomography of the abdomen and pelvis with intravenous contrast. Radiation optimization: All CT scans at this facility use at least one of these dose optimization techniques: automated exposure control; mA and/or kV adjustment per patient size (includes targeted exams where dose is matched to clinical indication); or iterative reconstruction. Contrast material: ISO 370; Contrast volume: 100 ml; Contrast route: INTRAVENOUS (IV); COMPARISON: CT ABD PELVIS W/O FOL BY [facility] 2019-04-17 10:53 FINDINGS: Tubes, catheters and devices: ICD leads. Lungs: Dependent subsegmental pulmonary atelectasis. Heart: Trace pericardial effusion. Moderate cardiac enlargement. Mediastinal space: Moderate hiatal hernia. Liver: Increased size of the liver hypodense lesions, and more numerous, largest measures 4.5 cm, previously 2 cm. Suspect liver masses. Gallbladder and bile ducts: Pneumobilia with biliary duct dilatation. Similar position of the biliary duct stent, although there appears to be slightly increased biliary duct dilatation, question obstructed . Pancreas: Normal. No ductal dilation. Spleen: Normal. No splenomegaly. Adrenals: Unchanged left adrenal adenoma. Kidneys and ureters: unchanged multiple simple renal cysts. Stomach and bowel: Mild colonic diverticulosis without evidence for acute diverticulitis. Pronounced gastric wall thickening, correlate for gastritis. Small amount a duodenal calcification. Slightly irregular proximal duodenum, correlate with history. Sigmoid bowel surgical changes. Appendix: No evidence of appendicitis. Intraperitoneal space: Unremarkable. No free air. No significant fluid collection. Retroperitoneal space: Clip in the retroperitoneum. Vasculature: Unremarkable. No abdominal aortic aneurysm. Lymph nodes: Unremarkable. No enlarged lymph nodes. Bladder: Unremarkable as visualized. Reproductive: Hysterectomy. Bones/joints: Multilevel moderate to severe spinal stenosis. Moderate bilateral hip degenerative joint disease. No lytic or destructive bony lesions identified. Soft tissues: Scarring from laparotomy. IMPRESSION: 1. Similar position of the biliary duct stent, although there appears to be slightly increased biliary duct dilatation, question obstructed . 2. Increased size of the liver hypodense lesions, and more numerous, largest measures 4.5 cm, previously 2 cm. Suspect worsening liver masses. 3. Increased gastric wall thickening and slight irregularity and possible ulceration of the proximal duodenum. Electronically signed by: Mk Squires On 07/31/2019 01:16:19 AM
[2019-07-31] MEDS ORDERED: ZOSYN 3.375GM VIAL (J2543) As Ordered ONE (01:51)
[2019-07-31] MEDS ORDERED: NS 2,370 ML in IV 1 EA IV ONE (02:00)
[2019-07-31] MEDS ORDERED: PIPERACILLIN/TAZOBACTAM SOD 3.375 GM in D5W MINI-BAG PLUS 50 ML IV ONE (02:00)
[2019-07-31] MEDS ORDERED: D31000TA2 PO (03:30)
[2019-07-31] MEDS ORDERED: ELIQ5TAB PO (03:30)
[2019-07-31] MEDS ORDERED: METO1TAB87 PO (03:31)
[2019-07-31] MEDS ORDERED: ATIV1TAB10 PO (03:33)
--- NOTE | 2019-07-31 03:35 | HPEPDOC ---
[facility] Medical History & Physical Date of Admission Jul 31, 2019 Date of Service: Jul 31, 2019 Attending Physician: JENNIFER LITTLE MD History and Physical CHIEF COMPLAINT: Abdominal pain HISTORY OF PRESENT ILLNESS: 84-year-old female with past medical history of colon cancer, status post resection, atrial fibrillation, congestive heart failure, coronary artery disease, myocardial infarction, hypothyroidism and hypertension, presents from home with abdominal pain. Pain started 3 days ago, right apartment/epigastric, nonradiating, intermittent, worsening since then with associated nausea and vomiting. Patient has no other complaints, denies any fever, shortness of breath, chest pain, diarrhea or urinary complaints. 10 point review of system is negative except for above PAST MEDICAL HISTORY: 1. Colon cancer. 2. Congestive heart failure. 3. Atrial fibrillation. 4. Coronary artery disease. 5. Hypothyroidism. 6. Hypertension. 7. Myocardial infarction PAST SURGICAL HISTORY: 1. Cholecystectomy. 2. Biliary stent placement. 3. Permanent pacemaker. SOCIAL HISTORY: She never smoker. Denies alcohol use. Denies drug use FAMILY HISTORY: Father had lung cancer Mother had heart disease ALLERGIES: Please see below. HOME MEDICATIONS: Please see below. PHYSICAL EXAMINATION: VITAL SIGNS: Please see below. GENERAL: No distress HEENT: Normocephalic, atraumatic, moist mucous membranes NECK: Supple CARDIOVASCULAR EXAMINATION: S1, S2 RESPIRATORY EXAMINATION: Scattered rhonchi, diminished at bases, no wheezing ABDOMINAL EXAMINATION: Soft, mild right upper quadrant tenderness, nondistended, positive bowel sounds EXTREMITIES: Range of motion intact SKIN: No rash NEUROLOGICAL EXAMINATION: Alert and oriented 3, no focal deficits PSYCHIATRIC EXAMINATION: Calm and cooperative LABORATORY DATA: See below. IMAGING: CT abdomen and pelvis showing increased distention of common bile duct with pneumobilia MICROBIOLOGY: Please see below. ASSESSMENT: 84-year-old female with extensive past medical history including metastatic colon cancer, biliary stent placement, who is being admitted for biliary obstruction and pneumobilia. PLAN: 1. Biliary obstruction. History of biliary stent placement, CT abdomen and pelvis showing distended common bile duct with pneumobilia, possible cholangitis, GI (Dr. Alvarez) consulted by emergency department, plan for procedure later today. Nothing by mouth, IV fluids, Zosyn, will hold Eliquis for potential procedure. 2. Colon cancer. Being treated by oncologist in [place], history of partial colectomy. 3. Atrial fibrillation. Continue metoprolol for rate control, hold Eliquis 4. Coronary artery disease/congestive heart failure. History of [place] and stent placement, continue optimal medical management with aspirin, statin, losartan and beta rupesh. 5. Hypothyroidism. Continue levothyroxine DVT prophylaxis: SCDs. GI prophylaxis: Home PPI Vital Signs Vital Signs Date Time Temp Pulse Resp B/P (MAP) Pulse Ox O2 Delivery O2 Flow Rate FiO2 07/31/19 02:33 65 16 96 Room Air 07/31/19 02:30 88/54 (65) 07/31/19 02:18 97.2 Laboratory Data Labs 24H Laboratory Tests 2 07/30/19 22:02: Immature Granulocyte % (Auto) 0.5, Neutrophils (%) (Auto) 88.7H, Lymphocytes (%) (Auto) 2.8L, Monocytes (%) (Auto) 7.8H, Eosinophils (%) (Auto) 0.0, Basophils (%) (Auto) 0.2, Neutrophils # (Auto) 11.5H, Lymphocytes # (Auto) 0.4L, Monocytes # (Auto) 1.0H, Eosinophils # (Auto) 0.0, Basophils # (Auto) 0.0, Nucleated Red Blood Cells % (auto) 0.0, Prothrombin Time 21.5H, Prothromb Time International Ratio 1.89, Anion Gap 8, Glomerular Filtration Rate > 60.0, Lactic Acid Level 2.3*H, Calcium Level 8.2L, Total Bilirubin 4.0H, Direct Bilirubin 3.4H, Aspartate Amino Transf (AST/SGOT) 269H, Alanine Aminotransferase (ALT/SGPT) 328H, Alkaline Phosphatase 414H, Total Creatine Kinase 37, Creatine Kinase MB < 1.0, Creatine Kinase MB Relative Index 2.70, Troponin I 0.06, Total Protein 6.1L, Albumin 2.6L, Albumin/Globulin Ratio 0.7L, Lipase 101 CBC/BMP Laboratory Tests 07/30/19 22:02 Microbiology Microbiology 07/30/19 Blood Culture, Received Pending 07/30/19 Blood Culture, Received Pending Home Medications Scheduled Apixaban (Eliquis) 2.5 Mg Tab, 2.5 MG PO BID TAKES 0800/1500 SAMPLE FROM Aspirin (Aspirin EC) 81 Mg Tab, 81 MG PO DAILY Atorvastatin Calcium (Atorvastatin Calcium) 40 Mg Tab, 40 MG PO DAILY Buspirone HCl (Buspirone HCl) 10 Mg Tab, 10 MG PO BID TAKES 0800/1500 Cholecalciferol (Vitamin D3) (Vitamin D3) 1,000 Unit Tablet, 2,000 UNIT PO DAILY Ferrous Sulfate (Ferrous Sulfate) 325 Mg Tablet, 325 MG PO DAILY Levothyroxine Sodium (Levothyroxine Sodium) 75 Mcg Tab, 75 MCG PO DAILY Losartan Potassium (Losartan Potassium) 25 Mg Tablet, 25 MG PO DAILY Magnesium Oxide (Magnesium Oxide) 400 Mg Tablet, 400 MG PO QID Magnesium Sulfate/D5w (Magnesium Sulf 1 G/100 ml-D5w) 1 Gm/100 Ml Piggyback, 1 GM IV 1XWK MON/WED/FRI Metoprolol Succinate (Metoprolol Succinate) 25 Mg Tab, 12.5 MG PO BID TAKES 0800/1500 Omeprazole (Omeprazole) 40 Mg Capsule.dr, 40 MG PO DAILY Panitumumab (Vectibix) 100 Mg/5 Ml Vial, 100 MG IV Q2WK INFUSION GIVEN IN [place] EVERY OTHER WEDNESDAY Scheduled PRN Nitroglycerin (Nitrostat) 0.4 Mg Subl, 0.4 MG SL NITRO PRN for CHEST PAIN Allergies Coded Allergies: albuterol (Verified Allergy, Severe, Shortness of breath, 05/04/18) ipratropium (Verified Allergy, Severe, Shortness of breath, 05/04/18) A-FIB/CHADSVASC A-FIB History Current/History of A-Fib/PAF?: Yes Current PO Anticoag Therapy: No Treatment Reason Anticoagulant not given: Recent/upcomin procedure JENNIFER LITTLE MD Jul 31, 2019 03:35
[2019-07-31 04:00] VITALS: BP 103/51
[2019-07-31 05:24] LABS: BILIRUBIN,TOTAL 3.1 MG/DL (0.2-1.0); CALCIUM LEVEL 7.3 MG/DL (8.8-10.2); CREATININE FOR GFR 0.96 MG/DL (0.55-1.30); GLOMERULAR FILTRATION RATE 59.1 (>32); POTASSIUM SERUM 3.8 MEQ/L (3.5-5.1)
[2019-07-31 08:00] VITALS: BP 96/60
[2019-07-31] MEDS: PIPERACILLIN/TAZOBACTAM SOD 3.375 GM in D5W MINI-BAG PLUS 50 ML IV SCH ×3 (08:02→20:44)
[2019-07-31 09:49] LABS: HEPATITIS B SURFACE ANTIGEN NEGATIVE (NEGATIVE)
[2019-07-31 10:16] LABS: HEPATITIS B CORE ANTIBODY IGM NEGATIVE (NEGATIVE); HEPATITIS C VIRUS ABY INDEX 0.3 INDEX (<0.8)
[2019-07-31 10:19] LABS: HEPATITIS A ANTIBODY IGM NEGATIVE (NEGATIVE)
[2019-07-31 12:00] VITALS: BP 112/58
[2019-07-31] MEDS ORDERED: MORPHINE 2 MG/ML 1ML VIAL (J2270) IV ONE (12:00)
[2019-07-31] MEDS ORDERED: PANTOPRAZOLE 40MG VIAL (C9113 PER 1) IV SCH (12:00)
--- NOTE | 2019-07-31 12:12 | REP ---
ACUTE ABDOMINAL SERIES: Three views. HISTORY: Abdomen pain. COMPARISON CHEST X-RAY: February 06, 2019. FINDINGS: A right-sided [id number] catheter and a unipolar pacemaker remain in place. Monitoring electrodes are seen. There is no evidence of infiltrate or free subdiaphragmatic air. Heart is enlarged unchanged. Supine erect views of the abdomen show the common bile duct wall stent in place and scattered surgical clips right upper quadrant central pelvis. There are multiple large and small bowel air-fluid levels without dilation. Post surgical suture line is seen in the pelvis suggesting colon resection. There is no evidence of free air or obstruction. IMPRESSION: Air-fluid levels distributed in the large and small bowel without evidence of obstruction or dilation. Question enteritis. Postoperative changes. No evidence of free air. Cardiomegaly with pacemaker. Electronically Signed by Jose J Avelar MD 07/31/2019 05:02 P
[2019-07-31] MEDS: NS 1,000 ML IV SCH (14:15)
--- NOTE | 2019-07-31 14:29 | IPNPDOC ---
Date Seen The patient was seen on 07/31/19. Progress Note SUBJECTIVE: Patient complains of epigastric located pain that wraps around the left side towards the back, unchanged since admission. Appears to be sitting comfortably in the chair but describes the pain as 8/10 on pain scale, intermittent, improved only minimally with IV morphine. The patient was started on Percocet when necessary. Dr. Alvarez would like more information from heme/onc provider in [place] prior to deciding on plan going forward. The patient's daughter was updated and was adamant that if the patient Denies chest pain, shortness of breath, n/v/d, fever or chills. OBJECTIVE: VITAL SIGNS: Please see below PHYSICAL EXAMINATION: CONSTITUTIONAL: No acute distress, sitting at the bedside chair, AAO x 3 EYES: PERRLA, EOM intact HENT, MOUTH: Normocephalic, atraumatic, moist mucous membranes NECK: SUPPLE, no JVD, no lymphadenopathy, no carotid bruit CV: Regular rate and rhythm, S1S2 normal, no murmurs/rubs/gallops RESPIRATORY: Clear to auscultation bilaterally, no rales/rhonchi/wheezes GI: obese abdomen, mild pain to palpation of epigastric, left upper quadrant BS positive in 4 quadrants, soft, nondistended, no rebound or guarding, no organomegaly : Deferred MUSCULOSKELETAL: Normal ROM. No cyanosis, clubbing, swelling, joint deformity, extremity edema INTEGUMENTARY: Intact, no rashes, no lesions, no erythema NEUROLOGIC: Cranial Nerves II-XII are intact, no focal deficits PSYCHIATRIC: Mood and affect are normal CURRENT MEDICATIONS: Please see below LABORATORY DATA: Please see below IMAGING: No new imaging ASSESSMENT: 84-year-old female with extensive past medical history including metastatic colon cancer, biliary stent placement, who is being admitted for questionable biliary obstruction and pneumobilia. PLAN: 1. Biliary obstruction. History of biliary stent placement at [facility] (records pending) with known metastatic colon cancer, CT abdomen and pelvis showing distended common bile duct with pneumobilia, cannot r/o cholangitis. Afebile, WBC wnl and AST/ALT decreased. GI (Dr. Alvarez) would like most recent hematology/oncology notes from her providers in [place] prior to giving recommendations for treatment, currently records are pending. Was made NPO, c/w IV fluids, Zosyn. Her daughter and healthcare proxy has made it clear that if the patient was to be needing further intervention surgically or invasively that she would like the patient to have it done at [facility]. Will update our gastroenterologists. If not going to be doing procedure today, will start diet and home medications. 2. Colon cancer. Being treated by oncologist in [place], history of partial colectomy. F/u most recent records. 3. Atrial fibrillation. Continue metoprolol, eliquis when taking PO 4. Coronary artery disease/congestive heart failure. History of [place] and stent placement. Continue optimal medical management with aspirin, statin, losartan and beta rupesh when taking PO 5. Hypothyroidism. Continue levothyroxine when taking PO 6. GI px. PPI IV. 7. DVT prophylaxis: SCDs. Resume eliquis if procedure not going to be done. DISPOSITION: Will discuss with GI about patient and daughter's wishes, current situation and our suggested plan. Awaiting [facility] records and [place] heme/onc records. VS, I&O, 24H, Fishbone Vital Signs/I&O Vital Signs Date Time Temp Pulse Resp B/P (MAP) Pulse Ox O2 Delivery O2 Flow Rate FiO2 07/31/19 12:00 96.0 63 18 112/58 (76) 98 Room Air I&O- Last 24 Hours up to 6 AM 07/31/19 06:00 Intake Total 1820 ml Balance 1820 ml Laboratory Data 24H LABS Laboratory Tests 2 07/30/19 22:02: Immature Granulocyte % (Auto) 0.5, Neutrophils (%) (Auto) 88.7H, Lymphocytes (%) (Auto) 2.8L, Monocytes (%) (Auto) 7.8H, Eosinophils (%) (Auto) 0.0, Basophils (%) (Auto) 0.2, Neutrophils # (Auto) 11.5H, Lymphocytes # (Auto) 0.4L, Monocytes # (Auto) 1.0H, Eosinophils # (Auto) 0.0, Basophils # (Auto) 0.0, Nucleated Red Blood Cells % (auto) 0.0, Prothrombin Time 21.5H, Prothromb Time International Ratio 1.89, Anion Gap 8, Glomerular Filtration Rate > 60.0, Lactic Acid Level 2.3*H, Calcium Level 8.2L, Total Bilirubin 4.0H, Direct Bilirubin 3.4H, Aspartate Amino Transf (AST/SGOT) 269H, Alanine Aminotransferase (ALT/SGPT) 328H, Alkaline Phosphatase 414H, Total Creatine Kinase 37, Creatine Kinase MB < 1.0, Creatine Kinase MB Relative Index 2.70, Troponin I 0.06, Total Protein 6.1L, Albumin 2.6L, Albumin/Globulin Ratio 0.7L, Lipase 101, Hepatitis A IgM Antibody NEGATIVE, Hepatitis B Surface Antigen NEGATIVE, Hepatitis B Core IgM Antibody NEGATIVE, Hepatitis C Antibody Index 0.3 07/31/19 04:38: Anion Gap 7L, Glomerular Filtration Rate 59.1, Calcium Level 7.3L, Total Bilirubin 3.1H, Aspartate Amino Transf (AST/SGOT) 188H, Alanine Aminotransferase (ALT/SGPT) 255H, Alkaline Phosphatase 339H, Total Protein 5.0L, Albumin 2.0#L, Albumin/Globulin Ratio 0.7L, Lactic Acid Followup at 4 Hours 1.1 CBC/BMP Laboratory Tests 07/30/19 22:02 07/31/19 04:38 Microbiology Microbiology 07/30/19 Blood Culture, Received Pending 07/30/19 Blood Culture, Received Pending Current Medications Current Medications Medications (Trade) Dose Ordered Sig/Handy Route PRN Reason Start Time Stop Time Status Last Admin Dose Admin Home Med (Med Rec Complete!) ASDIRECTED XX 07/31/19 03:45 07/31/19 03:38 DC Oxycodone/ Acetaminophen (Percocet 5mg/ 325mg Tablet) 1 tab Q6HP PRN PO MILD/MODERATE PAIN (PS 1-7) 07/31/19 14:30 Oxycodone/ Acetaminophen (Percocet 5mg/ 325mg Tablet) 2 tab Q6HP PRN PO SEVERE PAIN (PS 8-10) 07/31/19 14:30 Pantoprazole Sodium (Protonix) 40 mg Q24H IV 07/31/19 12:00 07/31/19 11:58 Piperacillin Sod/ Tazobactam Sod 3.375 gm/Dextrose 50 ml @ 50 mls/hr Q6H IV 07/31/19 08:00 07/31/19 14:15 Polyethylene Glycol (Miralax) 1 pkt DAILYPRN PRN PO CONSTIPATION 07/31/19 14:30 Senna (Senokot) 1 tab QHSP PRN PO CONSTIPATION 07/31/19 14:30 Sodium Chloride 1,000 ml @ 100 mls/hr Q10H IV 07/30/19 21:48 07/31/19 14:15 Allergies Coded Allergies: albuterol (Verified Allergy, Severe, Shortness of breath, 05/04/18) ipratropium (Verified Allergy, Severe, Shortness of breath, 05/04/18) Fanny Brewster MD Jul 31, 2019 14:29
[2019-07-31] MEDS ORDERED: PERCOCET 5MG/325MG TAB PO PRN ×2 (14:30)
[2019-07-31] MEDS ORDERED: SENNA 8.6 MG TAB (SENOKOT) PO PRN (14:30)
[2019-07-31] MEDS ORDERED: MIRALAX *UNIT DOSE* 17GM PACKET PO PRN (14:30)
[2019-07-31] MEDS ORDERED: ONDANSETRON 4MG/2ML VIAL IV PRN (15:45)
[2019-07-31 16:00] VITALS: BP 128/61
[2019-07-31] MEDS ORDERED: NITROGLYCERIN 0.4 MG SUBL TABLET SL PRN (16:30)
[2019-07-31] MEDS ORDERED: LORazepam 0.5 MG TAB PO PRN (16:30)
[2019-07-31] MEDS ORDERED: MORPHINE 2 MG/ML 1ML VIAL (J2270) IV PRN (17:00)
[2019-07-31] MEDS: MAGNESIUM OXIDE 400MG TAB (MAG-OX) PO SCH ×2 (17:36→21:58)
[2019-07-31] MEDS: ATORVASTATIN 20 MG TAB PO SCH (19:34)
[2019-07-31 19:53] VITALS: BP 119/54
[2019-07-31] MEDS: METOPROLOL TART 12.5 MG PER 1/2 TAB PO SCH (21:00)
[2019-07-31] MEDS ORDERED: APIXABAN 5 MG TAB (ELIQUIS) PO SCH (21:00)
[2019-07-31] MEDS: busPIRone 10 MG TAB PO SCH (21:58)
[2019-08-01] VITALS (13 sets, daily range): BP systolic 94–145; BP diastolic 56–66; O2SAT 92–98
[2019-08-01] MEDS: PIPERACILLIN/TAZOBACTAM SOD 3.375 GM in D5W MINI-BAG PLUS 50 ML IV SCH ×4 (02:58→20:51)
[2019-08-01] MEDS: NS 1,000 ML IV SCH ×3 (02:58→20:51)
[2019-08-01] MEDS: LEVOTHYROXINE 75MCG TABLET (0.075MG) PO SCH (05:06)
[2019-08-01 05:32] LABS: MEAN CORPUSCULAR HEMOGLOBIN 27.8 pg (27.0-33.0); MEAN CORPUSCULAR HGB CONC 30.3 g/dl (32.0-36.5); MEAN CORPUSCULAR VOLUME 91.7 fl (80.0-96.0); PLATELET COUNT, AUTOMATED 122 10^3/uL (150-450); RED BLOOD COUNT 3.49 10^6/uL (4.00-5.40); WHITE BLOOD COUNT 8.7 10^3/uL (4.0-10.0)
[2019-08-01 05:42] LABS: HEMOGLOBIN 9.7 g/dl (12.0-15.5)
[2019-08-01 05:56] LABS: ALBUMIN 2.1 GM/DL (3.2-5.2); ALT/SGPT 205 U/L (12-78); BILIRUBIN,TOTAL 2.6 MG/DL (0.2-1.0); BLOOD UREA NITROGEN 13 MG/DL (7-18); CALCIUM LEVEL 7.8 MG/DL (8.8-10.2); CARBON DIOXIDE LEVEL 23 MEQ/L (21-32); CHLORIDE LEVEL 115 MEQ/L (98-107); CREATININE FOR GFR 0.88 MG/DL (0.55-1.30); GLOMERULAR FILTRATION RATE > 60.0 (>32); GLUCOSE, FASTING 97 MG/DL (70-100); MAGNESIUM LEVEL 2.3 MG/DL (1.8-2.4); POTASSIUM SERUM 4.3 MEQ/L (3.5-5.1); SODIUM LEVEL 143 MEQ/L (136-145); TOTAL PROTEIN 5.1 GM/DL (6.4-8.2)
--- NOTE | 2019-08-01 08:28 | CR.PDOC ---
General Date of Consultation: Jul 31, 2019 Referring Provider: Fanny Brewster MD Attending Physician: MEGAN FONTANA MD Consultation Primary physician/ hospitalist: -Dr. Ney Escobedo Reason for consult: -Abdominal pain and abnormal liver panel HPI: 84-year-old female patient with history of colon cancer x 2 with surgical resection and recurrence with liver and lung metastases ( currently following with Oncology in [place], receiving immunotherapy), prior h/o CBD stone s/p ERCP and covered metal stent [place] [address] Vail, atrial fibrillation, congestive heart failure, coronary artery disease, s/p Cardiac pacemaker placement, currently on anticoagulation with Eliquis, hypothyroidism and hypertension, presented from home for complaints of abdominal pain. Patient was noted with abnormal liver panel and GI was consulted for the same. Patient reports having acute onset epigastric and right upper quadrant pain, no precipitating factor, started 3 days ago, nonradiating, intermittent, worsening since then with associated nausea and vomiting. Patient has no other complaints, denies any fever, shortness of breath, chest pain, diarrhea or urinary complaints. OFF note: Patient denies any cancer related weight loss or loss of appetite and denies any abdominal pain prior to this event despite having large liver metastatic mass. Pertinent negative GI symptoms: Patient denies fever, sick contacts, recent travel, diarrhea, loss of appetite, early satiety or unintentional weight loss. No history of hematemesis, melena or hematochezia. Review of Systems: GI: as stated above CVS: No chest pain, No palpitations, No leg swelling. RS: No Shortness of breath, No Wheezing, no cough SOAP MAKER: No dizziness, No motor weakness, No sensory problems Hematology: No bruising, No gum bleeding, Musculoskeletal: No joint pain, ambulating well. Skin: No rash : No hematuria, No burning sensation of the urine ENT: No ear discharge/ pain, No dysphagia. Eyes: No photophobia. Jaundice Home medications: reviewed. Antithrombotic agents: - Eliquis Medical h/o: As above. Surgical h/o: cholecystectomy, prior AICD/ pacemaker placement.. Social h/o: Alcohol: Denies , smoking:: Denies, IVDA/ drugs: Denies . Family h/o of GI cancers - None Prior Endoscopies: ERCP in [address] Vail for CBD stone - stone could not be removed due to size, placed a covered metal stent cm long into CBD. Prior GI evaluations: - was previously seen for CBD stone in [facility] hospitalization in 2018. Exam: Vitals: reviewed General: Alert and oriented x 3, mild to moderate distress due to pain. HEENT: No pallor, no icterus. Normal oropharynx, No cervical lymph nodes. Chest: symmetric with bilateral clear air entry, CVS: S1, S2 heard, normal, no murmurs . Abdomen: non-distended, no surgical scars, soft, mild tenderness in epigastric and right upper quadrant, no palpable masses, normal bowel sounds heard. Rectal exam: Patient refused / Deferred at this time in view of scheduled colonoscopy. Extremities: no pedal edema, pulses palpable. SOAP MAKER: no focal motor or sensory deficits. Moves all extremities Skin: no rash. Labs: reviewed.. Imaging: reviewed. Impression: - Acute onset abdominal pain and new worsening cholestatic liver panel in patient with know prior liver metastatic masses ( from recurrence from previous colon cancer), with prior known CBD stones and CBD stent placement in 2018, DDx-- Stent migration/ occlusion vs progression of liver metastatic cancer vs less likely from medications. In view of elevated WBC, will also consider Cholangitis in the differential diagnoses. Recommendations: - Patient educated about the test results, possible differential diagnoses and All questions answered. - Continue antibiotics for now. - Consider Holding Eliquis if not contraindicated. - Will schedule for urgent ERCP after optimization and after atleast 24 hours off Eliquis. - The procedure, indications, risks (including pancreatitis and its complication, bleeding, perforation, infection, hypotension, respiratory depression, allergy, need for endotracheal intubation, surgery, colostomy, cardiac arrest, even ), benefits, limitations (e.g., missing a lesion), and all other alternatives (including no intervention) were explained to the patient who understood and agreed for the procedure. Patient daughter who is also at bedside was explained about the procedure and all questions answered. - NPO for 6 hours prior to procedure and until then clear liquid diet. - Follow operative note for post operative recommendations. Plan of care discussed with patient and primary team. Patient verbalized understanding and agreed with the plan. Vital Signs/I&O Vital Signs Date Time Temp Pulse Resp B/P (MAP) Pulse Ox O2 Delivery O2 Flow Rate FiO2 08/01/19 04:00 96.7 56 16 108/60 (76) 95 Room Air I&O- Last 24 Hours up to 6 AM 08/01/19 06:00 Intake Total 1720 ml Output Total 700 ml Balance 1020 ml Laboratory Data Labs 24H Laboratory Tests 2 08/01/19 05:11: Nucleated Red Blood Cells % (auto) 0.0, Anion Gap 5L, Glomerular Filtration Rate > 60.0, Calcium Level 7.8L, Magnesium Level 2.3, Total Bilirubin 2.6H, Aspartate Amino Transf (AST/SGOT) 134H, Alanine Aminotransferase (ALT/SGPT) 205H, Alkaline Phosphatase 325H, Total Protein 5.1L, Albumin 2.1L, Albumin/Globulin Ratio 0.7L CBC/BMP Laboratory Tests 08/01/19 05:11 Microbiology Microbiology 08/01/19 Respiratory Virus Panel (PCR) (MANNY) - Final, Complete 07/30/19 Blood Culture - Preliminary, Resulted No growth after 24 hours . All specim... 07/30/19 Blood Culture - Preliminary, Resulted No growth after 24 hours . All specim... Allergies Coded Allergies: albuterol (Verified Allergy, Severe, Shortness of breath, 05/04/18) ipratropium (Verified Allergy, Severe, Shortness of breath, 05/04/18) Home Medications Scheduled Apixaban (Eliquis) 5 Mg Tablet, 5 MG PO BID, (Reported) Aspirin (Aspirin EC) 81 Mg Tab, 81 MG PO DAILY, (Reported) Atorvastatin Calcium (Atorvastatin Calcium) 40 Mg Tab, 40 MG PO QHS, (Reported) Buspirone HCl (Buspirone HCl) 10 Mg Tab, 10 MG PO BID, (Reported) TAKES 0800/1500 Cefpodoxime Proxetil (Cefpodoxime Proxetil) 200 Mg Tablet, 1 TAB PO BID for 7 Days, #14 Cholecalciferol (Vitamin D3) (Vitamin D3) 1,000 Unit Tablet, 2,000 UNITS PO DAILY, (Reported) Ferrous Sulfate (Ferrous Sulfate) 325 Mg Tablet, 325 MG PO DAILY, (Reported) Lactobacillus Acidophilus (Acidophilus Lactobacilli) 1 Each Capsule, 1 CAP PO BID for 7 Days, #14 Levothyroxine Sodium (Levothyroxine Sodium) 75 Mcg Tab, 75 MCG PO DAILY, (Reported) Losartan Potassium (Losartan Potassium) 25 Mg Tablet, 25 MG PO DAILY, (Reported) Magnesium Oxide (Magnesium Oxide) 400 Mg Tablet, 400 MG PO QID, (Reported) Magnesium Sulfate/D5w (Magnesium Sulf 1 G/100 ml-D5w) 1 Gm/100 Ml Piggyback, 1 GM IV 1XWK, (Reported) WED/WED/WED Metoprolol Tartrate (Metoprolol Tartrate) 25 Mg Tablet, 12.5 MG PO BID, (Reported) Omeprazole (Omeprazole) 40 Mg Capsule.dr, 40 MG PO DAILY, (Reported) Panitumumab (Vectibix) 100 Mg/5 Ml Vial, 100 MG IV Q2WK, (Reported) INFUSION GIVEN IN [place] EVERY OTHER WEDNESDAY Scheduled PRN Lorazepam (Ativan) 0.5 Mg Tablet, 0.5 MG PO Q4HP PRN for ANXIETY/AGITATION, (Reported) Nitroglycerin (Nitrostat) 0.4 Mg Subl, 0.4 MG SL NITRO PRN for CHEST PAIN, (Reported) MEGAN FONTANA MD Aug 01, 2019 08:28
[2019-08-01] MEDS: METOPROLOL TART 12.5 MG PER 1/2 TAB PO SCH ×3 (09:00→20:42)
[2019-08-01] MEDS: ASPIRIN 81 MG ENTERIC TAB PO SCH (09:38)
[2019-08-01] MEDS: OMEPRAZOLE 20 MG CAP PO SCH (09:41)
[2019-08-01] MEDS: busPIRone 10 MG TAB PO SCH ×2 (09:41→20:51)
[2019-08-01] MEDS: FERROUS SULFATE 325MG TAB PO SCH (09:41)
[2019-08-01] MEDS: LOSARTAN 25 MG TAB PO SCH (09:42)
[2019-08-01] MEDS: MAGNESIUM OXIDE 400MG TAB (MAG-OX) PO SCH ×4 (09:42→20:51)
--- NOTE | 2019-08-01 12:37 | IPNPDOC ---
Subjective Date Seen The patient was seen on 08/01/19. Subjective Chief Complaint/HPI Patient looks comfortable, in no apparent distress is scheduled for ERCP today. Also spoke with patient's daughter with the phone when she called her mother bilevel was examining her. General: Denies: ROS Unobtainable, Chills, Night Sweats, Fatigue, Malaise, Normal Appetite, Other Symptoms Constitutional: Denies: Chills, Fever, Malaise, Night Sweats, Weakness, Fatigue, Weight Loss, Lethargy, Other Eyes: Denies: Pain, Vision change, Conjunctivae inflammation, Eyelid inflammat ion, Redness, Other Pulmonary: Denies: Dyspnea, Cough, Pleuritic Chest Pain, Other Symptoms Cardiovascular: Denies: Chest Pain, Palpitations, Orthopnea, Paroxysmal Noc. Dyspnea, Edema, Lt Headedness, Other Symptoms Gastrointestinal: Denies: Nausea, Vomiting, Abdominal Pain, Diarrhea, Constipation, Melena, Hematochezia, Other Symptoms Musculoskeletal: Denies: Neck Pain, Back Pain, Shoulder Pain, Arm Pain, Hand Pain, Leg Pain, Foot Pain, Joint Pain, Muscle Pain, Spasms, Other Symptoms Objective Physical Examination General Exam: Positive: Alert, Cooperative Eye Exam: Positive: PERRLA ENT Exam: Positive: Atraumatic Neck Exam: Positive: Supple Chest Exam: Positive: Clear to auscultation, Normal air movement Heart Exam: Positive: Rate Normal, Normal S1, Normal S2 Abdomen Exam: Positive: Normal bowel sounds Extremity Exam: Positive: Normal pulses Skin Exam: Positive: Nl turgor and temperature Neuro Exam: Positive: Strength at 5/5 X4 ext, Cranial Nerves 3-12 NL, Reflexes 2+ Psych Exam: Positive: Mood NL Assessment /Plan Problems (1) Biliary obstruction Status: Acute Problem Text: Biliary obstruction, most likely secondary to malignancy Patient has a history of biliary stent placement and [facility] in the past and again CT of abdomen and pelvis shows distended common bile duct with pneumobilia. Patient is scheduled for ERCP again today by Dr. Alvarez for possible replacement of biliary stent Patient is nothing by mouth except meds Discussed with patient and her daughter once patient cleared from GI. She possibly will be discharged home and she can go back to [place] for her oncology follow-up (2) Metastatic colon cancer to liver Status: Chronic Problem Text: Patient is under care with oncology in [place] Patient has a history of partial colectomy Medical records from [place] has been ordered but is still pending (3) Atrial fibrillation Status: Chronic Problem Text: Continue metoprolol, eliquis when taking PO (4) Hypothyroidism Status: Chronic Problem Text: Continue home meds (5) CAD (coronary artery disease) Status: Chronic Problem Text: History of [place] and stent placement. Patient is nothing by mouth but the beta blockers and Cozaar has been started. Continue rest of meds, once she is taken oral meds Plan/VTE VTE Prophylaxis Ordered?: Yes VS, I&O, 24H, Fishbone Vital Signs/I&O Vital Signs Date Time Temp Pulse Resp B/P (MAP) Pulse Ox O2 Delivery O2 Flow Rate FiO2 08/01/19 09:42 128/60 08/01/19 09:00 50 08/01/19 08:00 96.7 66 97 08/01/19 04:00 Room Air I&O- Last 24 Hours up to 6 AM 08/01/19 06:00 Intake Total 1720 ml Output Total 700 ml Balance 1020 ml Laboratory Data 24H LABS Laboratory Tests 2 08/01/19 05:11: Nucleated Red Blood Cells % (auto) 0.0, Anion Gap 5L, Glomerular Filtration Rate > 60.0, Calcium Level 7.8L, Magnesium Level 2.3, Total Bilirubin 2.6H, Aspartate Amino Transf (AST/SGOT) 134H, Alanine Aminotransferase (ALT/SGPT) 205H, Alkaline Phosphatase 325H, Total Protein 5.1L, Albumin 2.1L, Albumin/Globulin Ratio 0.7L CBC/BMP Laboratory Tests 08/01/19 05:11 Microbiology Microbiology 08/01/19 Respiratory Virus Panel (PCR) (MANNY) - Final, Complete 07/30/19 Blood Culture - Preliminary, Resulted No growth after 24 hours . All specim... 07/30/19 Blood Culture - Preliminary, Resulted No growth after 24 hours . All specim... MIGUELANGEL NASCIMENTO MD Aug 01, 2019 12:37
[2019-08-01] MEDS ORDERED: ISOVUE-300 61% 50ML VIAL As Ordered ONE (12:51)
[2019-08-01] MEDS ORDERED: ZOSYN 3.375GM VIAL (J2543) As Ordered ONE (14:24)
[2019-08-01] MEDS ORDERED: propofoL 200 MG/20 ML VIAL As Ordered ONE ×2 (14:27→15:41)
[2019-08-01] MEDS ORDERED: ROCURONIUM BROMIDE 50 MG/5 ML VIAL As Ordered ONE (14:27)
[2019-08-01] MEDS ORDERED: LIDOCAINE 2% 100MG/5ML SDV (FOR ANES.) As Ordered ONE (14:27)
[2019-08-01] MEDS ORDERED: dexameTHASONE 4 MG/ML 1ML VIAL (J1100 PER 1MG) As Ordered ONE (14:27)
[2019-08-01] MEDS ORDERED: fentaNYL 100 MCG/2 ML INJECTION (J3010) As Ordered ONE ×2 (14:28→15:40)
[2019-08-01] MEDS ORDERED: ONDANSETRON 4MG/2ML VIAL As Ordered ONE (14:28)
[2019-08-01] MEDS ORDERED: GLYCOPYRROLATE INJ 0.2 MG/ML 2 ML VIAL As Ordered ONE (14:47)
[2019-08-01] MEDS ORDERED: ePHEDrine SULFATE 25 MG/5 ML(5MG/ML) SYRINGE As Ordered ONE (14:51)
[2019-08-01] MEDS ORDERED: PHENYLephrine 500MCG 5ML (100MCG/ML) SYRINGE As Ordered ONE (14:51)
[2019-08-01] MEDS ORDERED: ACETAMINOPHEN 1000MG 100ML IV BTL (OFIRMEV) (J0131 PER 10MG) As Ordered ONE (15:02)
[2019-08-01] MEDS ORDERED: SUGAMMADEX SODIUM 500 MG/5 ML VIAL (BRIDION) As Ordered ONE (15:06)
[2019-08-01] MEDS ORDERED: ESMOLOL INJ 100MG/10ML VIAL As Ordered ONE (15:26)
--- NOTE | 2019-08-01 17:28 | ROOR ---
Patient Name: Jennie Zendejas Procedure Date: 08/01/2019 2:07 PM Date of : 1935 Age: 84 Room: Main OR Gender: Female Note Status: Finalized Procedure: ERCP Indications: Suspected ascending cholangitis, Stent removal Providers: Isaiah Alvarez MD Referring MD: Phillip Herbert MD, Isaias Ordonez MD Requesting Provider: Medicines: Monitored Anesthesia Care Complications: No immediate complications. Procedure: Pre-Anesthesia Assessment: - Prior to the procedure, a History and Physical was performed, and patient medications and allergies were reviewed. The patient is competent. The risks and benefits of the procedure and the sedation options and risks were discussed with the patient. All questions were answered and informed consent was obtained. Patient identification and proposed procedure were verified by the physician, the nurse and the anesthesiologist in the procedure room. Mental Status Examination: alert and oriented. Airway Examination: normal oropharyngeal airway and neck mobility. Respiratory Examination: clear to auscultation. CV Examination: normal. Prophylactic Antibiotics: The patient does not require prophylactic antibiotics. Prior Anticoagulants: The patient has taken Eliquis (apixaban), last dose was 2 days prior to procedure. ASA Grade Assessment: III - A patient with severe systemic disease. After reviewing the risks and benefits, the patient was deemed in satisfactory condition to undergo the procedure. The anesthesia plan was to use general anesthesia. Immediately prior to administration of medications, the patient was re-assessed for adequacy to receive sedatives. The heart rate, respiratory rate, oxygen saturations, blood pressure, adequacy of pulmonary ventilation, and response to care were monitored throughout the procedure. The physical status of the patient was re-assessed after the procedure. The Duodenoscope was introduced through the mouth, and advanced to the duodenum and used to inject contrast into the bile duct. The ERCP was accomplished without difficulty. The patient tolerated the procedure well. Findings: A biliary stent was visible on the drywall carrier film. The esophagus was successfully intubated under direct vision without detailed examination of the pharynx, larynx, and associated structures, and upper GI tract. The upper GI tract was grossly normal. There was no stent seen emerging from the major papilla. The major papilla was on the rim of a diverticulum. A biliary sphincterotomy had been performed. The sphincterotomy appeared open. The previous Biliary stent migrated up into the bile duct, A 0.035 inch x 260 cm straight Hydra Jagwire was passed into the biliary tree. The short-nosed traction sphincterotome was passed over the guidewire and the bile duct was then deeply cannulated. Contrast was injected. I personally interpreted the bile duct images. Ductal flow of contrast was adequate. Image quality was adequate. Contrast extended to the entire biliary tree. The main bile duct contained filling defect(s) thought to be a stone and sludge. One stent was removed from the biliary tree using a 12 mm balloon, basket, rat-toothed forceps and snare. The stent was found to be occluded via the water column test. The biliary tree was swept with a 12 mm balloon starting at the bifurcation. Sludge was swept from the duct. Many stones were removed. No stones remained. Debris was swept from the duct. Pus was swept from the duct. One 10 mm by 8 cm covered metal stent was placed 7 cm into the common bile duct. Bile and sludge flowed through the stent. The stent was in good position. Pancreatic duct was neither cannulated nor opacified. Impression: - The major papilla was on the rim of a diverticulum and previous CBD stent was not seen at ampulla. Fluoroscopy showed the stent to be migrated up into the CBD. - Prior biliary sphincterotomy appeared open. - A filling defect consistent with a stone and sludge was seen on the cholangiogram. - Choledocholithiasis was found. Complete removal was accomplished by balloon extraction. - The previous covered metal stent, which migrated up, was succussfully removed from the biliary tree. - The biliary tree was swept and debris and pus were found. - One covered metal stent was placed into the common bile duct. Recommendation: - Patient has a contact number available for emergencies. The signs and symptoms of potential delayed complications were discussed with the patient. Return to normal activities tomorrow. Written discharge instructions were provided to the patient. - [facility]. - Clear liquid diet for 1 day, then advance as tolerated to low fat diet and low sodium diet. - Use Protonix (pantoprazole) 40 mg PO daily for 4 weeks. - Use broad spectrum antibiotics for 10 days. - Observe patient's clinical course. - Return to this GI lab for stent exchange at ERCP in 1 year depending on clinical course and symptoms. - Return to primary care physician. Isaiah Alvarez MD Isaiah Alvarez MD 08/01/2019 5:28:34 PM Electronically signed by Isaiah Alvarez MD Number of Addenda: 0 Note Initiated On: 08/01/2019 2:07 PM Estimated Blood Loss: Estimated blood loss was minimal.
[2019-08-01] MEDS ORDERED: METOCLOPRAMIDE INJ 10MG/2ML VIAL (J2765 PER 1) IV PRN (17:30)
[2019-08-01] MEDS ORDERED: LR 1,000 ML IV SCH (17:30)
[2019-08-01] MEDS ORDERED: fentaNYL 100 MCG/2 ML INJECTION (J3010) IV PRN (17:30)
[2019-08-01] MEDS ORDERED: PERCOCET 5MG/325MG TAB PO PRN (17:30)
[2019-08-01] MEDS ORDERED: ONDANSETRON 4MG/2ML VIAL IV PRN (17:30)
[2019-08-01] MEDS ORDERED: METOPROLOL 5 MG/5 ML VIAL As Ordered ONE (17:36)
[2019-08-01] MEDS ORDERED: MORPHINE 2 MG/ML 1ML VIAL (J2270) As Ordered ONE (17:36)
[2019-08-01] MEDS ORDERED: MIDAZOLAM INJ 2MG/2ML VIAL (J2250 PER 1MG) As Ordered ONE (17:36)
[2019-08-01] MEDS ORDERED: MORPHINE 2 MG/ML 1ML VIAL (J2270) IV SCH (17:45)
[2019-08-01] MEDS ORDERED: MIDAZOLAM INJ 2MG/2ML VIAL (J2250 PER 1MG) IV SCH (17:45)
[2019-08-01] MEDS ORDERED: METOPROLOL 5 MG/5 ML VIAL IV PRN (17:45)
[2019-08-01 19:17] LABS: CK-MB VALUE MASS 2.2 NG/ML (<3.6); CPK CREATINE PHOSPHOKINASE 39 U/L (26-192); MB/CK RELATIVE INDEX 5.64 (< OR =4); TROPONIN I < 0.02 NG/ML (< 0.10)
[2019-08-01] MEDS: ATORVASTATIN 20 MG TAB PO SCH (20:51)
--- NOTE | 2019-08-01 23:00 | REP ---
ERCP, 51 VIEWS: HISTORY: ERCP exam. 4 minutes 8 seconds of fluoroscopy time is reported. FINDINGS: A sequence of 51 last image hold fluoroscopically obtained spot radiographs of the right upper quadrant document endoscopic cannulation contrast injection, catheterization, and stent placement of the common bile duct. Electronically Signed by Jose J Avelar MD 08/02/2019 02:54 P
[2019-08-02] VITALS (12 sets, daily range): BP systolic 124–162; BP diastolic 62–72; O2SAT 90–97
[2019-08-02] MEDS: PIPERACILLIN/TAZOBACTAM SOD 3.375 GM in D5W MINI-BAG PLUS 50 ML IV SCH ×4 (02:23→20:06)
--- NOTE | 2019-08-02 03:43 | REP ---
REASON FOR EXAM: Chest pain. PRIORS: Multiple, the latest 07/30/2019. The technique utilized in obtaining the radiograph has magnified the cardiac silhouette and accentuated the interstitial markings. The tip of the Mediport device is unchanged, again seen at the right atrial/superior vena cava junction. The heart is enlarged and accentuated by technique, status quo. The single-chamber bipolar pacemaker device is unchanged. There is no change in appearance of the lung gregg. No acute patchy parenchymal opacities or pleural effusions have developed. The osseous structures are stable and intact. IMPRESSION: No significant change. Electronically Signed by Jean Marie Richardson DO 08/02/2019 08:40 A
[2019-08-02] MEDS: LEVOTHYROXINE 75MCG TABLET (0.075MG) PO SCH (05:39)
[2019-08-02] MEDS: MAGNESIUM OXIDE 400MG TAB (MAG-OX) PO SCH ×4 (09:20→20:06)
[2019-08-02] MEDS: ASPIRIN 81 MG ENTERIC TAB PO SCH (09:20)
[2019-08-02] MEDS: LOSARTAN 25 MG TAB PO SCH (09:20)
[2019-08-02] MEDS: busPIRone 10 MG TAB PO SCH ×2 (09:20→20:06)
[2019-08-02] MEDS: METOPROLOL TART 12.5 MG PER 1/2 TAB PO SCH ×2 (09:20→20:00)
[2019-08-02] MEDS: OMEPRAZOLE 20 MG CAP PO SCH (09:20)
[2019-08-02] MEDS: FERROUS SULFATE 325MG TAB PO SCH (09:20)
--- NOTE | 2019-08-02 10:38 | IPNPDOC ---
Subjective Date Seen The patient was seen on 08/02/19. Subjective Chief Complaint/HPI Patient is feeling much better off as no new complaints at the present time tolerating clear liquid diet General: Denies: ROS Unobtainable, Chills, Night Sweats, Fatigue, Malaise, Normal Appetite, Other Symptoms Constitutional: Denies: Chills, Fever, Malaise, Night Sweats, Weakness, Fatigue, Weight Loss, Lethargy, Other Eyes: Denies: Pain, Vision change, Conjunctivae inflammation, Eyelid inflammation, Redness, Other ENT: Denies: Head Aches, Ear Pain, Dysphagia, Sinus Congestion, Post Nasal Drip, Sore Throat, Epistaxis, Other Symptoms Skin: Denies: Rash, Lesions, Jaundice, Bruising, Itching, Dry, Breakdown, Nail Changes, Other Pulmonary: Denies: Dyspnea, Cough, Pleuritic Chest Pain, Other Symptoms Cardiovascular: Denies: Chest Pain, Palpitations, Orthopnea, Paroxysmal Noc. Dyspnea, Edema, Lt Headedness, Other Symptoms Gastrointestinal: Denies: Nausea, Vomiting, Abdominal Pain, Diarrhea, Constipation, Melena, Hematochezia, Other Symptoms Genitourinary: Denies: Dysuria, Frequency, Incontinence, Hematuria, Retention, Other Symptoms Musculoskeletal: Denies: Neck Pain, Back Pain, Shoulder Pain, Arm Pain, Hand Pain, Leg Pain, Foot Pain, Joint Pain, Muscle Pain, Spasms, Other Symptoms Neurological: Denies: Weakness, Numbness, Incoordination, Change in speech, Confusion, Seizures, Other Symptoms Objective Physical Examination General Exam: Positive: Alert, Cooperative Eye Exam: Positive: PERRLA ENT Exam: Positive: Atraumatic Neck Exam: Positive: Supple Chest Exam: Positive: Clear to auscultation, Normal air movement Heart Exam: Positive: Rate Normal, Normal S1, Normal S2 Abdomen Exam: Positive: Normal bowel sounds Extremity Exam: Positive: Normal pulses Skin Exam: Positive: Nl turgor and temperature Neuro Exam: Positive: Strength at 5/5 X4 ext, Cranial Nerves 3-12 NL, Reflexes 2+ Psych Exam: Positive: Mood NL Assessment /Plan Problems (1) Biliary obstruction Status: Acute Problem Text: Patient had ERCP done yesterday by Dr. Petit The old stent has migrated up the CBD and choledocholithiasis was noted Complete removal of the stone with balloon extraction was done and a new stent was placed in Further, on biliary tree sweep and debris and pus was found. Further instructions as per GIs recommendations (2) Metastatic colon cancer to liver Status: Chronic Problem Text: Patient is under care with oncology in [place] Patient has a history of partial colectomy Medical records from [place] has been ordered but is still pending (3) Atrial fibrillation Status: Chronic Problem Text: Continue metoprolol, eliquis when taking PO (4) Hypothyroidism Status: Chronic Problem Text: Continue home meds (5) CAD (coronary artery disease) Status: Chronic Problem Text: History of [place] and stent placement. Patient is nothing by mouth but the beta blockers and Cozaar has been started. Continue rest of meds, once she is taken oral meds Plan/VTE VTE Prophylaxis Ordered?: Yes VS, [facility]O, [facility] Vital Signs/I&O Vital Signs Date Time Temp Pulse Resp B/P (MAP) Pulse Ox O2 Delivery O2 Flow Rate FiO2 08/02/19 09:20 62 162/72 08/02/19 08:00 96.5 18 94 Room Air 08/02/19 04:00 1.0 I&O- Last 24 Hours up to 6 AM 08/02/19 06:00 Intake Total 4300 ml Output Total 0 ml Balance 4300 ml Laboratory Data 24H LABS Laboratory Tests 2 08/01/19 18:39: Total Creatine Kinase 39, Creatine Kinase MB 2.2, Creatine Kinase MB Relative Index 5.64H, Troponin I < 0.02 Microbiology Microbiology 08/01/19 Respiratory Virus Panel (PCR) (MANNY) - Final, Complete 07/30/19 Blood Culture - Preliminary, Resulted No Growth after 48 hours. All Specime... 07/30/19 Blood Culture - Preliminary, Resulted No Growth after 48 hours. All Specime... MIGUELANGEL NASCIMENTO MD Aug 02, 2019 10:38
[2019-08-02] MEDS: NS 1,000 ML IV SCH ×2 (15:42→17:54)
[2019-08-02] MEDS: ATORVASTATIN 20 MG TAB PO SCH (20:06)
[2019-08-03] MEDS: PIPERACILLIN/TAZOBACTAM SOD 3.375 GM in D5W MINI-BAG PLUS 50 ML IV SCH ×2 (01:47→08:10)
[2019-08-03] MEDS: NS 1,000 ML IV SCH (01:48)
[2019-08-03] MEDS: LEVOTHYROXINE 75MCG TABLET (0.075MG) PO SCH (05:30)
[2019-08-03 06:00] VITALS: BP 147/69
[2019-08-03 06:07] LABS: BASO % 0.2 % (0.0-1.0); EOS % 0.6 % (0.0-3.0); HEMATOCRIT 32.7 % (36.0-47.0); HEMOGLOBIN 9.9 g/dl (12.0-15.5); LYMPH # 0.5 10^3/uL (1.5-5.0); LYMPH % 8.3 % (24.0-44.0); MEAN CORPUSCULAR HEMOGLOBIN 27.5 pg (27.0-33.0); MEAN CORPUSCULAR HGB CONC 30.3 g/dl (32.0-36.5); MEAN CORPUSCULAR VOLUME 90.8 fl (80.0-96.0); MONO # 0.3 10^3/uL (0.0-0.8); MONO % 5.4 % (0.0-5.0); NEUTROPHILS # 5.3 10^3/uL (1.5-8.5); NEUTROPHILS % 84.9 % (36.0-66.0); PLATELET COUNT, AUTOMATED 188 10^3/uL (150-450); WHITE BLOOD COUNT 6.3 10^3/uL (4.0-10.0)
[2019-08-03 06:37] LABS: ALBUMIN 1.9 GM/DL (3.2-5.2); ALT/SGPT 104 U/L (12-78); BILIRUBIN,TOTAL 0.7 MG/DL (0.2-1.0); BLOOD UREA NITROGEN 11 MG/DL (7-18); CALCIUM LEVEL 8.1 MG/DL (8.8-10.2); CARBON DIOXIDE LEVEL 24 MEQ/L (21-32); CHLORIDE LEVEL 116 MEQ/L (98-107); CREATININE FOR GFR 0.86 MG/DL (0.55-1.30); GLOMERULAR FILTRATION RATE > 60.0 (>32); GLUCOSE, FASTING 92 MG/DL (70-100); POTASSIUM SERUM 3.8 MEQ/L (3.5-5.1); SODIUM LEVEL 145 MEQ/L (136-145); TOTAL PROTEIN 5.4 GM/DL (6.4-8.2)
[2019-08-03] MEDS: ASPIRIN 81 MG ENTERIC TAB PO SCH (08:10)
[2019-08-03] MEDS: OMEPRAZOLE 20 MG CAP PO SCH (08:10)
[2019-08-03] MEDS: busPIRone 10 MG TAB PO SCH (08:10)
[2019-08-03] MEDS: FERROUS SULFATE 325MG TAB PO SCH (08:10)
[2019-08-03] MEDS: MAGNESIUM OXIDE 400MG TAB (MAG-OX) PO SCH (08:10)
[2019-08-03 08:13] VITALS: BP 164/76
[2019-08-03] MEDS: METOPROLOL TART 12.5 MG PER 1/2 TAB PO SCH (08:13)
[2019-08-03] MEDS: LOSARTAN 25 MG TAB PO SCH (08:13)
[2019-08-03] MEDS ORDERED: ACID1CAP5 PO (09:56)
[2019-08-03] MEDS ORDERED: CEFP200T PO (09:56)
--- NOTE | 2019-08-03 11:20 | DS.PDOC ---
Discharge Summary General Date of Admission Jul 31, 2019 at 03:17 Date of Discharge 08/03/19 Discharge Summary PROCEDURES PERFORMED DURING STAY: None. ADMITTING DIAGNOSES: 1. Acute cholangitis. DISCHARGE DIAGNOSES: 1. Acute cholangitis, choledocholithiasis ,history of colon cancer status post resection, atrial fibrillation, chronic combined systolic and diastolic heart failure, coronary artery disease, status post VT, hypothyroidism, hypertension. COMPLICATIONS/CHIEF COMPLAINT: Cholangitis. HISTORY OF PRESENT ILLNESS: 84-year-old female with past medical history of colon cancer, status post resection, atrial fibrillation, congestive heart failure, coronary artery disease, myocardial infarction, hypothyroidism and hypertension, presents from home with abdominal pain. Pain started 3 days ago, right apartment/epigastric, nonradiating, intermittent, worsening since then with associated nausea and vomiting. Patient has no other complaints, denies any fever, shortness of breath, chest pain, diarrhea or urinary complaints.. HOSPITAL COURSE: 83 years old white female with past medical history of colon cancer status post resection, A. fib, congestive heart failure, coronary artery disease, myocardial infarction, hypothyroidism, hypertension, status post biliary stent in the past, was admitted with the nausea vomiting and possible biliary obstruction. GI consult was called and Patient had ERCP done [address] Petit The old stent has migrated up the CBD and choledocholithiasis was noted Complete removal of the stone with balloon extraction was done and a new stent was placed in Further, on biliary tree sweep and debris and pus was found. Patient later was started on clear liquid diet and since yesterday she is been eating a regular diet Her liver enzymes are essentially within normal limit, now. Her electrolytes are normal and CBC is normal Discussed with Dr. Juan Fox. He recommended to discharge patient home on by mouth antibiotics for one more week Patient will follow up with her oncology in [place] as per schedule appointment Patient's daughter were also called discharge planning, care and follow-up was explained to her and she understands very well Metastatic colon cancer to liver Patient is under care with oncology in [place] Patient has a history of partial colectomy Medical records from [place] has been ordered but is still pending Atrial fibrillation Under well control with present meds which include metoprolol and eliquis Hypothyroidism Stable with home meds. DISCHARGE MEDICATIONS: Please see below. ALLERGIES: Please see below. PHYSICAL EXAMINATION ON DISCHARGE: VITAL SIGNS: Please see below. GENERAL: Within normal limits HEENT: PERRLA. Extraocular muscles intact NECK: supple CARDIOVASCULAR EXAMINATION: S1, S2, regular RESPIRATORY EXAMINATION: Clear to A&P ABDOMINAL EXAMINATION: Benign EXTREMITIES: No clubbing, cyanosis, edema SKIN: Normal NEUROLOGICAL EXAMINATION: . No focal motor sensory deficit PSYCHIATRIC EXAMINATION: Normal LABORATORY DATA: Please see below. IMAGING: ERCP x-ray:FINDINGS: A sequence of 51 last image hold fluoroscopically obtained spot radiographs of the right upper quadrant document endoscopic cannulation contrast injection, catheterization, and stent placement of the common bile duct. PROGNOSIS: Good ACTIVITY: As tolerated. DIET: As tolerated DISCHARGE PLAN: Discharged home and follow with [place] with oncology to schedule appointment DISPOSITION: . Home DISCHARGE INSTRUCTIONS: 1. Follow-up with [place] with her oncology, patient's daughter was also called and discharge plan and further follow-up was explained to her. ITEMS TO FOLLOWUP ON ON OUTPATIENT: 1. As above. DISCHARGE CONDITION: Stable. TIME SPENT ON DISCHARGE: 35 minutes. Vital Signs/I&Os Vital Signs Date Time Temp Pulse Resp B/P (MAP) Pulse Ox O2 Delivery O2 Flow Rate FiO2 08/03/19 08:13 71 08/03/19 08:13 164/76 08/03/19 06:00 97.9 16 95 Room Air 08/02/19 04:00 1.0 I&O- Last 24 Hours up to 6 AM 08/03/19 06:00 Intake Total 2730 ml Output Total 775 ml Balance 1955 ml Laboratory Data Labs 24H Laboratory Tests 2 08/03/19 05:39: Immature Granulocyte % (Auto) 0.6, Neutrophils (%) (Auto) 84.9H, Lymphocytes (%) (Auto) 8.3L, Monocytes (%) (Auto) 5.4H, Eosinophils (%) (Auto) 0.6, Basophils (%) (Auto) 0.2, Neutrophils # (Auto) 5.3, Lymphocytes # (Auto) 0.5L, Monocytes # (Auto) 0.3, Eosinophils # (Auto) 0.0, Basophils # (Auto) 0.0, Nucleated Red Blood Cells % (auto) 0.0, Anion Gap 5L, Glomerular Filtration Rate > 60.0, Calcium Level 8.1L, Total Bilirubin 0.7#, Aspartate Amino Transf (AST/SGOT) 29, Alanine Aminotransferase (ALT/SGPT) 104H, Alkaline Phosphatase 234H, Total Prot ein 5.4L, Albumin 1.9L, Albumin/Globulin Ratio 0.5L CBC/BMP Laboratory Tests 08/03/19 05:39 Microbiology Microbiology 08/01/19 Respiratory Virus Panel (PCR) (MANNY) - Final, Complete 07/30/19 Blood Culture - Preliminary, Resulted No Growth after 72 hours. All specime... 07/30/19 Blood Culture - Preliminary, Resulted No Growth after 72 hours. All specime... Discharge Medications Scheduled Apixaban (Eliquis) 5 Mg Tablet, 5 MG PO BID, (Reported) Aspirin (Aspirin EC) 81 Mg Tab, 81 MG PO DAILY, (Reported) Atorvastatin Calcium (Atorvastatin Calcium) 40 Mg Tab, 40 MG PO QHS, (Reported) Buspirone HCl (Buspirone HCl) 10 Mg Tab, 10 MG PO BID, (Reported) TAKES 0800/1500 Cefpodoxime Proxetil (Cefpodoxime Proxetil) 200 Mg Tablet, 1 TAB PO BID Cholecalciferol (Vitamin D3) (Vitamin D3) 1,000 Unit Tablet, 2,000 UNITS PO DAILY, (Reported) Ferrous Sulfate (Ferrous Sulfate) 325 Mg Tablet, 325 MG PO DAILY, (Reported) Lactobacillus Acidophilus (Acidophilus Lactobacilli) 1 Each Capsule, 1 CAP PO BID Levothyroxine Sodium (Levothyroxine Sodium) 75 Mcg Tab, 75 MCG PO DAILY, (Reported) Losartan Potassium (Losartan Potassium) 25 Mg Tablet, 25 MG PO DAILY, (Reported) Magnesium Oxide (Magnesium Oxide) 400 Mg Tablet, 400 MG PO QID, (Reported) Magnesium Sulfate/D5w (Magnesium Sulf 1 G/100 ml-D5w) 1 Gm/100 Ml Piggyback, 1 GM IV 1XWK, (Reported) MON/WED/FRI Metoprolol Tartrate (Metoprolol Tartrate) 25 Mg Tablet, 12.5 MG PO BID, (Reported) Omeprazole (Omeprazole) 40 Mg Capsule.dr, 40 MG PO DAILY, (Reported) Panitumumab (Vectibix) 100 Mg/5 Ml Vial, 100 MG IV Q2WK, (Reported) INFUSION GIVEN IN [place] EVERY OTHER WEDNESDAY Scheduled PRN Lorazepam (Ativan) 0.5 Mg Tablet, 0.5 MG PO Q4HP PRN for ANXIETY/AGITATION, (Reported) Nitroglycerin (Nitrostat) 0.4 Mg Subl, 0.4 MG SL NITRO PRN for CHEST PAIN, (Reported) Allergies Coded Allergies: albuterol (Verified Allergy, Severe, Shortness of breath, 05/04/18) ipratropium (Verified Allergy, Severe, Shortness of breath, 05/04/18) MIGUELANGEL NASCIMENTO MD Aug 03, 2019 11:20
[2019-08-03 11:46] VITALS: O2SAT 95
--- NOTE | 2019-08-03 18:31 | ECGEPIP ---
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
[2019-12-11] MEDS ORDERED: ONDA8TAB10 PO (11:19)
[2019-12-11] MEDS ORDERED: PROC10TA4 PO (11:19)
[2020-03-11] MEDS ORDERED: POTA20TA6 PO (15:14)
== END 2019-08-03 12:35 | disposition home or self-care (01) | DRG 920 ==
LOC: M ED 21:32 → M ED INP 07-31 03:17 → ENRESERV 07-31 03:36 → M PCU 07-31 04:03 → M MSPAV 08-02 15:28
PROVIDERS: ADMIT Internal Medicine; ATTEND Internal Medicine
PROC: 0F798DZ Dilation of Common Bile Duct with Intraluminal Device, Via Natural or Artificial Opening Endoscopic (ICD-10-PCS; 2019-08-01)
PROC: 0FPB8DZ Removal of Intraluminal Device from Hepatobiliary Duct, Via Natural or Artificial Opening Endoscopic (ICD-10-PCS; 2019-08-01)
PROC: 0FC98ZZ Extirpation of Matter from Common Bile Duct, Via Natural or Artificial Opening Endoscopic (ICD-10-PCS; principal; 2019-08-01 14:00)
DX: T85.590A Other mechanical complication of bile duct prosthesis, initial encounter (principal); K80.33 Calculus of bile duct with acute cholangitis with obstruction; C18.9 Malignant neoplasm of colon, unspecified; C78.7 Secondary malignant neoplasm of liver and intrahepatic bile duct; C78.00 Secondary malignant neoplasm of unspecified lung; I48.20 Chronic atrial fibrillation, unspecified; I50.42 Chronic combined systolic (congestive) and diastolic (congestive) heart failure; E03.9 Hypothyroidism, unspecified; I11.0 Hypertensive heart disease with heart failure; K80.50 Calculus of bile duct without cholangitis or cholecystitis without obstruction; I25.2 Old myocardial infarction; Z90.49 Acquired absence of other specified parts of digestive tract; Z95.0 Presence of cardiac pacemaker; Z79.01 Long term (current) use of anticoagulants; Z79.82 Long term (current) use of aspirin; Z79.899 Other long term (current) drug therapy; Z88.8 Allergy status to other drugs, medicaments and biological substances; Y83.1 Surgical operation with implant of artificial internal device as the cause of abnormal reaction of the patient, or of later complication, without mention of misadventure at the time of the procedure; Z11.59 Encounter for screening for other viral diseases

== ENCOUNTER 2019-08-09 14:10 | Outpatient (CLI) | payer MEDICARE ==
[~2019-08-09] VITALS: Ht 157.5 cm; Wt 82.0 kg
[~2019-08-09 14:10] MED LIST changes: +ACID1CAP5 PO; +ATIV1TAB10 PO; +CEFP200T PO; +D31000TA2 PO; -ISOS1TAB35 PO; -ISOS1TAB36 PO; +ISOS30TA4 PO; +ISOS60TA2 PO; +MAG400TA PO; -MAGN400T35 PO; +SODIUM CHLORIDE 0.9% INJ 10 ML SYR IV SCH
[2019-08-09 14:20] VITALS: BP 198/86
[2019-08-09 15:20] VITALS: BP 174/75
[2019-12-11] MEDS ORDERED: PROC10TA4 PO (11:19)
[2019-12-11] MEDS ORDERED: ONDA8TAB10 PO (11:19)
== END 2019-08-09 15:20 | disposition home or self-care (01) ==
LOC: M INFU 14:10
PROVIDERS: ATTEND Family Medicine
DX: E83.42 Hypomagnesemia (principal)
CPT/HCPCS: 36591; 83735; J1642

== ENCOUNTER 2019-08-30 13:22 | Outpatient (CLI) | payer MEDICARE ==
[~2019-08-30] VITALS: Ht 157.5 cm; Wt 82.0 kg
[2019-08-30] MEDS ORDERED: MAG SULF 1GM/100ML (MAG RUN) SINGLE DOSE IV ONE ×2 (14:45)
[2019-08-30 15:18] VITALS: BP 158/78
[2019-08-30 15:45] VITALS: BP 115/57
[2019-12-11] MEDS ORDERED: PROC10TA4 PO (11:19)
[2019-12-11] MEDS ORDERED: ONDA8TAB10 PO (11:19)
== END 2019-08-30 15:45 | disposition home or self-care (01) ==
LOC: M INFU 13:22
PROVIDERS: ATTEND Family Medicine
DX: E83.42 Hypomagnesemia (principal)
CPT/HCPCS: 36591; 83735; 96365; J1642; J3475

== ENCOUNTER → 2019-09-01 | Outpatient (CLI) | payer MEDICARE ==
[~2019-09-01] MED LIST changes: +MAGNESIUM SULFATE 1GM/100ML D5W BAG (10MG/ML) ONE; +MINO100T PO; +ONDA8TAB10 PO; +PROC10TA4 PO; -SODIUM CHLORIDE 0.9% INJ 10 ML SYR IV SCH
== END ==
LOC: M INFU 13:19
PROVIDERS: ATTEND Family Medicine
DX: E83.42 Hypomagnesemia (principal)
CPT/HCPCS: 96365; J3475

== ENCOUNTER 2019-09-04 13:22 | Outpatient (CLI) | payer MEDICARE ==
[~2019-09-04 13:22] MED LIST changes: -MINO100T PO; -ONDA8TAB10 PO; -PROC10TA4 PO
[2019-09-04] MEDS ORDERED: MAGNESIUM SULFATE 1GM/100ML D5W BAG (10MG/ML) As Ordered ONE (15:40)
[2019-12-11] MEDS ORDERED: ONDA8TAB10 PO (11:19)
[2019-12-11] MEDS ORDERED: PROC10TA4 PO (11:19)
== END 2019-09-04 17:00 | disposition home or self-care (01) ==
LOC: M INFU 13:22
PROVIDERS: ATTEND Family Medicine
DX: E83.42 Hypomagnesemia (principal)
CPT/HCPCS: 36591; 83735; 96365; J1642; J3475

== ENCOUNTER 2019-09-06 13:35 | Outpatient (CLI) | payer MEDICARE ==
[~2019-09-06 13:35] MED LIST changes: -MAGNESIUM SULFATE 1GM/100ML D5W BAG (10MG/ML) ONE
[2019-09-06] MEDS ORDERED: MAGNESIUM SULFATE 1GM/100ML D5W BAG (10MG/ML) As Ordered ONE (14:58)
[2019-10-09 09:07] LABS: HEMATOCRIT 38.4 % (36.0-47.0); HEMOGLOBIN 11.7 g/dl (12.0-15.5); MEAN CORPUSCULAR HEMOGLOBIN 28.1 pg (27.0-33.0); MEAN CORPUSCULAR HGB CONC 30.5 g/dl (32.0-36.5); MEAN CORPUSCULAR VOLUME 92.3 fl (80.0-96.0); PLATELET COUNT, AUTOMATED 247 10^3/uL (150-450); RED BLOOD COUNT 4.16 10^6/uL (4.00-5.40); WHITE BLOOD COUNT 6.1 10^3/uL (4.0-10.0)
[2019-10-15 12:13] LABS: ALBUMIN 3.1 GM/DL (3.2-5.2); ALT/SGPT 13 U/L (12-78); BILIRUBIN,TOTAL 0.5 MG/DL (0.2-1.0); BLOOD UREA NITROGEN 18 MG/DL (7-18); CALCIUM LEVEL 8.5 MG/DL (8.8-10.2); CARBON DIOXIDE LEVEL 25 MEQ/L (21-32); CHLORIDE LEVEL 113 MEQ/L (98-107); CREATININE FOR GFR 0.81 MG/DL (0.55-1.30); GLOMERULAR FILTRATION RATE > 60.0 (>32); GLUCOSE, FASTING 102 MG/DL (70-100); MAGNESIUM LEVEL 1.8 MG/DL (1.8-2.4); POTASSIUM SERUM 4.5 MEQ/L (3.5-5.1); SODIUM LEVEL 142 MEQ/L (136-145); TOTAL PROTEIN 6.6 GM/DL (6.4-8.2)
[2019-12-11] MEDS ORDERED: ONDA8TAB10 PO (11:19)
[2019-12-11] MEDS ORDERED: PROC10TA4 PO (11:19)
== END 2019-09-06 16:20 | disposition home or self-care (01) ==
LOC: M INFU 13:35
PROVIDERS: ATTEND Family Medicine
DX: E83.42 Hypomagnesemia (principal); Z79.899 Other long term (current) drug therapy
CPT/HCPCS: 36415; 36591; 80053; 83735; 84439; 84443; 85027; 96365; J1642; J3475

== ENCOUNTER 2019-09-11 14:00 | Outpatient (CLI) | payer MEDICARE ==
[2019-09-11] MEDS ORDERED: MAGNESIUM SULFATE 1GM/100ML D5W BAG (10MG/ML) As Ordered ONE (15:21)
[2019-09-11] MEDS ORDERED: MAGNESIUM SULFATE 1GM/100ML D5W BAG (10MG/ML) ONE (15:21)
[2019-12-11] MEDS ORDERED: ONDA8TAB10 PO (11:19)
[2019-12-11] MEDS ORDERED: PROC10TA4 PO (11:19)
== END 2019-09-11 16:40 | disposition home or self-care (01) ==
LOC: M INFU 14:00
PROVIDERS: ATTEND Family Medicine
DX: E83.42 Hypomagnesemia (principal)
CPT/HCPCS: 36591; 83735; 96365; J1642; J3475

== ENCOUNTER 2019-09-13 13:30 | Outpatient (CLI) | payer MEDICARE ==
[2019-09-13] MEDS ORDERED: MAGNESIUM SULFATE 1GM/100ML D5W BAG (10MG/ML) As Ordered ONE (14:54)
[2019-12-11] MEDS ORDERED: PROC10TA4 PO (11:19)
[2019-12-11] MEDS ORDERED: ONDA8TAB10 PO (11:19)
== END 2019-09-13 16:15 | disposition home or self-care (01) ==
LOC: M INFU 13:30
PROVIDERS: ATTEND Family Medicine
DX: E83.42 Hypomagnesemia (principal)
CPT/HCPCS: 36591; 83735; 96365; J1642; J3475

== ENCOUNTER 2019-09-15 13:01 | Outpatient (CLI) | payer MEDICARE ==
[2019-09-15] MEDS ORDERED: MAGNESIUM SULFATE 1GM/100ML D5W BAG (10MG/ML) As Ordered ONE (14:31)
[2019-12-11] MEDS ORDERED: PROC10TA4 PO (11:19)
[2019-12-11] MEDS ORDERED: ONDA8TAB10 PO (11:19)
== END 2019-09-15 15:45 | disposition home or self-care (01) ==
LOC: M INFU 13:01
PROVIDERS: ATTEND Family Medicine
DX: E83.42 Hypomagnesemia (principal)
CPT/HCPCS: 36591; 83735; 96365; J1642; J3475

== ENCOUNTER 2019-09-18 13:20 | Outpatient (CLI) | payer MEDICARE ==
[2019-09-18] MEDS ORDERED: MAGNESIUM SULFATE 1GM/100ML D5W BAG (10MG/ML) As Ordered ONE (15:49)
[2019-12-11] MEDS ORDERED: ONDA8TAB10 PO (11:19)
[2019-12-11] MEDS ORDERED: PROC10TA4 PO (11:19)
== END 2019-09-18 16:55 | disposition home or self-care (01) ==
LOC: M INFU 13:20
PROVIDERS: ATTEND Family Medicine
DX: E83.42 Hypomagnesemia (principal)
CPT/HCPCS: 36591; 83735; 96365; J1642; J3475

== ENCOUNTER 2019-09-20 13:18 | Outpatient (CLI) | payer MEDICARE ==
[2019-09-20] MEDS ORDERED: MAGNESIUM SULFATE 1GM/100ML D5W BAG (10MG/ML) As Ordered ONE (14:48)
[2019-12-11] MEDS ORDERED: PROC10TA4 PO (11:19)
[2019-12-11] MEDS ORDERED: ONDA8TAB10 PO (11:19)
== END 2019-09-20 16:10 | disposition home or self-care (01) ==
LOC: M INFU 13:18
PROVIDERS: ATTEND Family Medicine
DX: E83.42 Hypomagnesemia (principal)
CPT/HCPCS: 36591; 83735; 96365; J1642; J3475

== ENCOUNTER 2019-09-22 11:49 | Outpatient (CLI) | payer MEDICARE ==
[2019-09-22] MEDS ORDERED: MAGNESIUM SULFATE 1GM/100ML D5W BAG (10MG/ML) As Ordered ONE (12:57)
[2019-09-22] MEDS ORDERED: MAGNESIUM SULFATE 1GM/100ML D5W BAG (10MG/ML) ONE (12:57)
[2019-09-29] MEDS ORDERED: MAGNESIUM SULFATE 1GM/100ML D5W BAG (10MG/ML) As Ordered ONE (14:30)
[2019-10-02] MEDS ORDERED: MAGNESIUM SULFATE 1GM/100ML D5W BAG (10MG/ML) As Ordered ONE (14:39)
[2019-10-04] MEDS ORDERED: MAGNESIUM SULFATE 1GM/100ML D5W BAG (10MG/ML) As Ordered ONE (11:23)
[2019-12-11] MEDS ORDERED: PROC10TA4 PO (11:19)
[2019-12-11] MEDS ORDERED: ONDA8TAB10 PO (11:19)
== END 2019-09-22 14:15 | disposition home or self-care (01) ==
LOC: M INFU 11:49
PROVIDERS: ATTEND Family Medicine
DX: E83.42 Hypomagnesemia (principal)
CPT/HCPCS: 36591; 83735; 96365; J1642; J3475

== ENCOUNTER 2019-09-25 13:00 | Outpatient (CLI) | payer MEDICARE ==
[~2019-09-25 13:00] MED LIST changes: -MAGNESIUM SULFATE 1GM/100ML D5W BAG (10MG/ML) As Ordered ONE; -MINO100T PO; -ONDA8TAB10 PO; -PROC10TA4 PO
[2019-09-25] MEDS ORDERED: MAGNESIUM SULFATE 1GM/100ML D5W BAG (10MG/ML) ONE (13:01)
[2019-10-11] MEDS ORDERED: MAGNESIUM SULFATE 1GM/100ML D5W BAG (10MG/ML) As Ordered ONE (14:21)
[2019-12-11] MEDS ORDERED: ONDA8TAB10 PO (11:19)
[2019-12-11] MEDS ORDERED: PROC10TA4 PO (11:19)
== END 2019-09-25 16:00 | disposition home or self-care (01) ==
LOC: M INFU 13:00
PROVIDERS: ATTEND Psychiatry & Neurology Neurology
DX: E83.42 Hypomagnesemia (principal)
CPT/HCPCS: 96365; J3475

== ENCOUNTER → 2019-09-25 | Outpatient (CLI) | payer MEDICARE ==
[~2019-09-25] MED LIST changes: +MAGNESIUM SULFATE 1GM/100ML D5W BAG (10MG/ML) As Ordered ONE; +MINO100T PO; +ONDA8TAB10 PO; +PROC10TA4 PO
== END ==
LOC: M INFU 13:00
PROVIDERS: ATTEND Family Medicine
DX: E83.42 Hypomagnesemia (principal)
CPT/HCPCS: 36591; 83735; 96365; J1642; J3475

== ENCOUNTER 2019-09-27 13:28 | Outpatient (CLI) | payer MEDICARE ==
[~2019-09-27] VITALS: Ht 157.5 cm; Wt 82.0 kg
[2019-09-27 13:45] VITALS: BP 144/78
[2019-09-27 14:00] VITALS: BP 140/67
[2019-09-27] MEDS ORDERED: MAGNESIUM SULFATE 1GM/100ML D5W BAG (10MG/ML) As Ordered ONE (14:57)
[2019-09-27 16:10] VITALS: BP 138/72
[2019-12-11] MEDS ORDERED: PROC10TA4 PO (11:19)
[2019-12-11] MEDS ORDERED: ONDA8TAB10 PO (11:19)
== END 2019-09-27 16:10 | disposition home or self-care (01) ==
LOC: M INFU 13:28
PROVIDERS: ATTEND Family Medicine
DX: E83.42 Hypomagnesemia (principal)
CPT/HCPCS: 36591; 83735; 96374; J1642; J3475

== ENCOUNTER 2019-09-29 13:12 | Outpatient (CLI) | payer MEDICARE ==
[~2019-09-29] VITALS: Ht 157.5 cm; Wt 82.0 kg
[~2019-09-29 13:12] MED LIST changes: +SODIUM CHLORIDE 0.9% INJ 10 ML SYR IV SCH
[2019-09-29 13:40] VITALS: BP 113/67
[2019-09-29] MEDS ORDERED: MAG SULF 1GM/100ML (MAG RUN) SINGLE DOSE IV ONE ×2 (14:45)
[2019-09-29 15:39] VITALS: BP 124/72
[2019-12-11] MEDS ORDERED: ONDA8TAB10 PO (11:19)
[2019-12-11] MEDS ORDERED: PROC10TA4 PO (11:19)
== END 2019-09-29 15:40 | disposition home or self-care (01) ==
LOC: M INFU 13:12
PROVIDERS: ATTEND Family Medicine
DX: E83.42 Hypomagnesemia (principal)
CPT/HCPCS: 36591; 83735; 96365; J3475

== ENCOUNTER 2019-10-02 13:21 | Outpatient (CLI) | payer MEDICARE ==
[~2019-10-02] VITALS: Ht 157.5 cm; Wt 71.4 kg
[2019-10-02 13:30] VITALS: BP 142/63
[2019-10-02] MEDS ORDERED: MAG SULF 1GM/100ML (MAG RUN) SINGLE DOSE IV ONE ×2 (14:45)
[2019-10-02 16:00] VITALS: BP 135/58
[2019-12-11] MEDS ORDERED: ONDA8TAB10 PO (11:19)
[2019-12-11] MEDS ORDERED: PROC10TA4 PO (11:19)
== END 2019-10-02 16:00 | disposition home or self-care (01) ==
LOC: M INFU 13:21
PROVIDERS: ATTEND Family Medicine
DX: E83.42 Hypomagnesemia (principal)
CPT/HCPCS: 36591; 83735; 96365; J3475

== ENCOUNTER 2019-10-04 09:43 | Outpatient (CLI) | payer MEDICARE ==
[~2019-10-04] VITALS: Ht 157.5 cm; Wt 82.0 kg
[~2019-10-04 09:43] MED LIST changes: -SODIUM CHLORIDE 0.9% INJ 10 ML SYR IV SCH
[2019-10-04] MEDS ORDERED: SODIUM CHLORIDE 0.9% INJ 10 ML SYR IV SCH (10:00)
[2019-10-04 10:15] VITALS: BP 138/62
[2019-10-04] MEDS ORDERED: MAG SULF 1GM/100ML (MAG RUN) SINGLE DOSE IV ONE ×2 (12:00)
[2019-10-04 12:45] VITALS: BP 127/61
[2019-12-11] MEDS ORDERED: PROC10TA4 PO (11:19)
[2019-12-11] MEDS ORDERED: ONDA8TAB10 PO (11:19)
== END 2019-10-04 12:40 | disposition home or self-care (01) ==
LOC: M INFU 09:43
PROVIDERS: ATTEND Family Medicine
DX: E83.42 Hypomagnesemia (principal)
CPT/HCPCS: 36591; 83735; 96365; J3475

== ENCOUNTER 2019-10-06 13:20 | Outpatient (CLI) | payer MEDICARE ==
[~2019-10-06] VITALS: Ht 157.5 cm; Wt 82.0 kg
[2019-10-06 13:30] VITALS: BP 110/61
[2019-10-06] MEDS ORDERED: MAG SULF 1GM/100ML (MAG RUN) SINGLE DOSE IV ONE ×2 (14:45)
[2019-10-06] MEDS ORDERED: SODIUM CHLORIDE 0.9% INJ 10 ML SYR IV PRN (14:45)
[2019-10-06] MEDS ORDERED: MAGNESIUM SULFATE 1GM/100ML D5W BAG (10MG/ML) As Ordered ONE (14:48)
[2019-10-06 16:00] VITALS: BP 124/73
[2019-10-07] MEDS ORDERED: SODIUM CHLORIDE 0.9% INJ 10 ML SYR IV SCH (09:00)
[2019-12-11] MEDS ORDERED: ONDA8TAB10 PO (11:19)
[2019-12-11] MEDS ORDERED: PROC10TA4 PO (11:19)
== END 2019-10-06 16:00 | disposition home or self-care (01) ==
LOC: M INFU 13:20
PROVIDERS: ATTEND Family Medicine
DX: E83.42 Hypomagnesemia (principal)
CPT/HCPCS: 36591; 83735; 96365; J3475

== ENCOUNTER 2019-10-09 13:13 | Outpatient (CLI) | payer MEDICARE ==
[~2019-10-09] VITALS: Ht 157.5 cm; Wt 82.0 kg
[~2019-10-09 13:13] MED LIST changes: +MAG SULF 1GM/100ML (MAG RUN) 1 GM in IV 1 EA IV PRN; +SODIUM CHLORIDE 0.9% INJ 10 ML SYR IV PRN; +SODIUM CHLORIDE 0.9% INJ 10 ML SYR IV SCH
[2019-10-09 13:15] VITALS: BP 137/70
[2019-10-09] MEDS ORDERED: MAGNESIUM SULFATE 1GM/100ML D5W BAG (10MG/ML) As Ordered ONE (14:12)
[2019-10-09 15:25] VITALS: BP 131/63
[2019-12-11] MEDS ORDERED: PROC10TA4 PO (11:19)
[2019-12-11] MEDS ORDERED: ONDA8TAB10 PO (11:19)
== END 2019-10-09 15:25 | disposition home or self-care (01) ==
LOC: M INFU 13:13
PROVIDERS: ATTEND Family Medicine
DX: E83.42 Hypomagnesemia (principal)
CPT/HCPCS: 36591; 83735; 96365; J3475

== ENCOUNTER 2019-10-11 13:12 | Outpatient (CLI) | payer MEDICARE ==
[~2019-10-11] VITALS: Ht 157.5 cm; Wt 82.0 kg
[~2019-10-11 13:12] MED LIST changes: -SODIUM CHLORIDE 0.9% INJ 10 ML SYR IV PRN; -SODIUM CHLORIDE 0.9% INJ 10 ML SYR IV SCH
[2019-10-11 13:20] VITALS: BP 97/55
[2019-10-11] MEDS ORDERED: SODIUM CHLORIDE 0.9% INJ 10 ML SYR IV PRN (13:30)
[2019-10-11 15:29] VITALS: BP 122/58
[2019-10-12] MEDS ORDERED: SODIUM CHLORIDE 0.9% INJ 10 ML SYR IV SCH (09:00)
[2019-12-11] MEDS ORDERED: ONDA8TAB10 PO (11:19)
[2019-12-11] MEDS ORDERED: PROC10TA4 PO (11:19)
== END 2019-10-11 15:25 | disposition home or self-care (01) ==
LOC: M INFU 13:12
PROVIDERS: ATTEND Family Medicine
DX: E83.42 Hypomagnesemia (principal); Z88.8 Allergy status to other drugs, medicaments and biological substances
CPT/HCPCS: 36591; 83735; 96365; J3475

== ENCOUNTER 2019-10-17 14:54 | Outpatient (CLI) | payer MEDICARE ==
[~2019-10-17] VITALS: Ht 157.5 cm; Wt 82.0 kg
[~2019-10-17 14:54] MED LIST changes: +SODIUM CHLORIDE 0.9% INJ 10 ML SYR IV PRN; +SODIUM CHLORIDE 0.9% INJ 10 ML SYR IV SCH
[2019-10-17 14:55] VITALS: BP 110/61
[2019-10-17] MEDS ORDERED: MAGNESIUM SULFATE 1GM/100ML D5W BAG (10MG/ML) As Ordered ONE (15:45)
[2019-10-17 17:10] VITALS: BP 146/69
[2019-12-11] MEDS ORDERED: PROC10TA4 PO (11:19)
[2019-12-11] MEDS ORDERED: ONDA8TAB10 PO (11:19)
== END 2019-10-17 17:10 | disposition home or self-care (01) ==
LOC: M INFU 14:54
PROVIDERS: ATTEND Family Medicine
DX: E83.42 Hypomagnesemia (principal); Z88.8 Allergy status to other drugs, medicaments and biological substances
CPT/HCPCS: 36591; 83735; 96365; 96366; J3475

== ENCOUNTER 2019-10-20 12:43 | Outpatient (CLI) | payer MEDICARE ==
[~2019-10-20] VITALS: Ht 157.5 cm; Wt 82.0 kg
[~2019-10-20 12:43] MED LIST changes: -MAG SULF 1GM/100ML (MAG RUN) 1 GM in IV 1 EA IV PRN; -SODIUM CHLORIDE 0.9% INJ 10 ML SYR IV PRN; -SODIUM CHLORIDE 0.9% INJ 10 ML SYR IV SCH
[2019-10-20 12:50] VITALS: BP 131/53
[2019-10-20] MEDS ORDERED: SODIUM CHLORIDE 0.9% INJ 10 ML SYR IV PRN (13:00)
[2019-10-20] MEDS ORDERED: MAG SULF 1GM/100ML (MAG RUN) 1 GM in IV 1 EA IV PRN (13:00)
[2019-10-20] MEDS ORDERED: MAGNESIUM SULFATE 1GM/100ML D5W BAG (10MG/ML) As Ordered ONE (13:35)
[2019-10-20] MEDS: MAG SULF 1GM/100ML (MAG RUN) 1 GM in IV 1 EA IV ONE ×2 (14:33→14:35)
[2019-10-20 14:50] VITALS: BP 125/60
[2019-10-21] MEDS ORDERED: SODIUM CHLORIDE 0.9% INJ 10 ML SYR IV SCH (09:00)
== END 2019-10-20 14:50 | disposition home or self-care (01) ==
LOC: M INFU 12:43
PROVIDERS: ATTEND Family Medicine
DX: E83.42 Hypomagnesemia (principal)
CPT/HCPCS: 36591; 83735; 96365; J3475

== ENCOUNTER 2019-10-23 14:47 | Outpatient (CLI) | payer MEDICARE ==
[~2019-10-23] VITALS: Ht 157.5 cm; Wt 82.0 kg
[2019-10-23 14:50] VITALS: BP 101/56
[2019-10-23] MEDS ORDERED: SODIUM CHLORIDE 0.9% INJ 10 ML SYR IV PRN (15:00)
[2019-10-23] MEDS ORDERED: MAG SULF 1GM/100ML (MAG RUN) 1 GM in IV 1 EA IV PRN ×2 (15:00→16:00)
[2019-10-23] MEDS ORDERED: MAGNESIUM SULFATE 1GM/100ML D5W BAG (10MG/ML) As Ordered ONE (15:40)
[2019-10-23 16:52] VITALS: BP 122/58
[2019-10-24] MEDS ORDERED: SODIUM CHLORIDE 0.9% INJ 10 ML SYR IV SCH (09:00)
[2019-12-11] MEDS ORDERED: ONDA8TAB10 PO (11:19)
[2019-12-11] MEDS ORDERED: PROC10TA4 PO (11:19)
== END 2019-10-23 17:00 | disposition home or self-care (01) ==
LOC: M INFU 14:47
PROVIDERS: ATTEND Family Medicine
DX: E83.42 Hypomagnesemia (principal); Z88.8 Allergy status to other drugs, medicaments and biological substances
CPT/HCPCS: 36591; 83735; 96365; J3475

== ENCOUNTER 2019-10-25 14:45 | Outpatient (CLI) | payer MEDICARE ==
[~2019-10-25] VITALS: Ht 157.5 cm; Wt 82.0 kg
[~2019-10-25 14:45] MED LIST changes: +MAG SULF 1GM/100ML (MAG RUN) 1 GM in IV 1 EA IV PRN; +SODIUM CHLORIDE 0.9% INJ 10 ML SYR IV PRN; +SODIUM CHLORIDE 0.9% INJ 10 ML SYR IV SCH
[2019-10-25 14:50] VITALS: BP 108/60
[2019-10-25] MEDS ORDERED: MAGNESIUM SULFATE 1GM/100ML D5W BAG (10MG/ML) As Ordered ONE (15:49)
[2019-10-25 17:10] VITALS: BP 137/60
[2019-12-11] MEDS ORDERED: PROC10TA4 PO (11:19)
[2019-12-11] MEDS ORDERED: ONDA8TAB10 PO (11:19)
== END 2019-10-25 16:10 | disposition home or self-care (01) ==
LOC: M INFU 14:45
PROVIDERS: ATTEND Family Medicine
DX: E83.42 Hypomagnesemia (principal); Z88.8 Allergy status to other drugs, medicaments and biological substances
CPT/HCPCS: 36591; 83735; 96365; J3475

== ENCOUNTER 2019-10-30 14:45 | Outpatient (CLI) | payer MEDICARE ==
[~2019-10-30] VITALS: Ht 157.5 cm; Wt 82.0 kg
[2019-10-30 14:45] VITALS: BP 141/60
[~2019-10-30 14:45] MED LIST changes: -SODIUM CHLORIDE 0.9% INJ 10 ML SYR IV PRN; -SODIUM CHLORIDE 0.9% INJ 10 ML SYR IV SCH
[2019-10-30] MEDS ORDERED: SODIUM CHLORIDE 0.9% INJ 10 ML SYR IV PRN (15:00)
[2019-10-30] MEDS ORDERED: MAGNESIUM SULFATE 1GM/100ML D5W BAG (10MG/ML) As Ordered ONE (15:27)
[2019-10-30 16:39] VITALS: BP 126/62
[2019-10-31] MEDS ORDERED: SODIUM CHLORIDE 0.9% INJ 10 ML SYR IV SCH (09:00)
[2019-12-11] MEDS ORDERED: PROC10TA4 PO (11:19)
[2019-12-11] MEDS ORDERED: ONDA8TAB10 PO (11:19)
== END 2019-10-30 16:35 | disposition home or self-care (01) ==
LOC: M INFU 14:45
PROVIDERS: ATTEND Family Medicine
DX: E83.42 Hypomagnesemia (principal); Z88.8 Allergy status to other drugs, medicaments and biological substances
CPT/HCPCS: 36591; 83735; 96365; J3475

== ENCOUNTER 2019-11-01 14:39 | Outpatient (CLI) | payer MEDICARE ==
[~2019-11-01] VITALS: Ht 157.5 cm; Wt 82.0 kg
[2019-11-01 14:50] VITALS: BP 160/76
[2019-11-01] MEDS ORDERED: SODIUM CHLORIDE 0.9% INJ 10 ML SYR IV PRN (15:00)
[2019-11-01] MEDS ORDERED: MAGNESIUM SULFATE 1GM/100ML D5W BAG (10MG/ML) As Ordered ONE (15:26)
[2019-11-01 16:00] VITALS: BP 122/76
[2019-11-02] MEDS ORDERED: SODIUM CHLORIDE 0.9% INJ 10 ML SYR IV SCH (09:00)
[2019-12-11] MEDS ORDERED: ONDA8TAB10 PO (11:19)
[2019-12-11] MEDS ORDERED: PROC10TA4 PO (11:19)
== END 2019-11-01 16:05 | disposition home or self-care (01) ==
LOC: M INFU 14:39
PROVIDERS: ATTEND Family Medicine
DX: E83.42 Hypomagnesemia (principal)
CPT/HCPCS: 36591; 83735; 96365; J3475

== ENCOUNTER 2019-11-03 11:55 | Outpatient (CLI) | payer MEDICARE ==
[~2019-11-03] VITALS: Ht 157.5 cm; Wt 82.0 kg
[~2019-11-03 11:55] MED LIST changes: -GASTROGRAFIN SOLUTION 30ML (Q9963) As Ordered ONE; -ISOVUE-370 76% 100ML VIAL As Ordered ONE; +MAG SULF 1GM/100ML (MAG RUN) 1 GM in IV 1 EA IV PRN; -MINO100T PO; -ONDA8TAB10 PO; -PROC10TA4 PO
[2019-11-03 14:30] VITALS: BP 126/61
[2019-11-03] MEDS ORDERED: SODIUM CHLORIDE 0.9% INJ 10 ML SYR IV PRN ×2 (15:00)
[2019-11-03 15:45] VITALS: BP 106/55
[2019-11-04] MEDS ORDERED: SODIUM CHLORIDE 0.9% INJ 10 ML SYR IV SCH ×2 (09:00)
[2019-12-11] MEDS ORDERED: ONDA8TAB10 PO (11:19)
[2019-12-11] MEDS ORDERED: PROC10TA4 PO (11:19)
== END 2019-11-03 15:45 | disposition home or self-care (01) ==
LOC: M INFU 11:55
PROVIDERS: ATTEND Family Medicine
DX: E83.42 Hypomagnesemia (principal)
CPT/HCPCS: 36591; 83735; 96365; 96523; J1642; J3475

== ENCOUNTER → 2019-11-03 | Outpatient (CLI) | payer MEDICARE ==
[~2019-11-03] MED LIST changes: -MAG SULF 1GM/100ML (MAG RUN) 1 GM in IV 1 EA IV PRN; +MINO100T PO; +ONDA8TAB10 PO; +PROC10TA4 PO
== END ==
LOC: M RAD 11:57
PROVIDERS: ATTEND Internal Medicine Medical Oncology
DX: C18.9 Malignant neoplasm of colon, unspecified (principal)

== ENCOUNTER → 2019-11-03 | Outpatient (CLI) | payer MEDICARE ==
[~2019-11-03] MED LIST changes: +GASTROGRAFIN SOLUTION 30ML (Q9963) As Ordered ONE; +ISOVUE-370 76% 100ML VIAL As Ordered ONE
--- NOTE | 2019-11-09 07:44 | REP ---
CT ABDOMEN AND PELVIS WITHOUT AND WITH INTRAVENOUS (IV) CONTRAST: WITH ORAL CONTRAST HISTORY: Metastatic colon carcinoma. COMPARISON: CT study abdomen and pelvis from 07/30/2019. CT CONTRAST DOSE: 100 mL of intravenous Isovue-370. CT FINDINGS: Preliminary digital patient service associate radiograph demonstrates a biliary stent, clips in the right upper quadrant and left lower quadrant, a normal bowel gas pattern, and a cardiac pacemaker. Axial images demonstrate interval increase in the size and extent of the heterogeneously enhancing solid posterior segment right hepatic metastatic lesions. The largest of these is 4.9 cm in greatest diameter, previously 3.5 cm. There has been progressive increase in size of the adjacent nodules as well. Superiorly there appear to be new enhancing metastatic lesions in the posterior segment, 3.9 cm in greatest diameter. Pneumobilia is again noted with common bile duct stent remaining in place. There is a small low-density lesion in the left hepatic lobe measuring 1.7 cm in diameter consistent with a new metastatic focus. No focal splenic lesion is seen. No pancreatic mass is observed. There is a moderate size sliding-type hiatal hernia. There are small renal cysts bilaterally. No mass is seen in the upper abdomen. No hydronephrosis noted. Pelvic CT images show no evidence of pelvic mass or adenopathy. No abdominal wall defect is seen. No bony destructive lesion is appreciated. IMPRESSION: Findings consistent with progression of hepatic metastatic disease. MTDD
--- NOTE | 2019-11-09 07:44 | REP ---
CT STUDY CHEST WITH INTRAVENOUS (IV) CONTRAST HISTORY: Colon carcinoma. Metastatic colon cancer. CT CONTRAST DOSE: 100 mL of intravenous Isovue-370 is administered. COMPARISON: Chest CT study from 04/17/2019. CT FINDINGS: Evaluation of the lung gregg demonstrates a stable somewhat spiculated pleural parenchymal fibrotic appearing density in the right upper lobe anteriorly, Page 29 of 101 in Series 304 of todays study. This is unchanged from the most recent prior study of 04/17/2019. There is also a stable area of nodular density in the lingular segment of the left upper lobe on Page 56. However, there is a nodular density in the right upper lobe peribronchovascular location measuring 5 mm in diameter. This is displayed on Page 29 of 101 in Series 304. This is larger than on the prior study. There is a 4 mm nodular opacity in the left upper lobe also on Page 24. This appears larger than on the prior exam. There is a stable nodule in the superior segment of the left lower lobe on Page 31. There is a stable 5 mm nodule in the left lower lobe on Page 47. There is a 4 mm nodule in the right upper lobe just above the minor fissure on Page 54, which appears slightly more prominent today than on the prior study. There is a 4.2 mm nodule in the right upper lobe again adjacent to the minor fissure on Page 49, which appears slightly more prominent than on the prior exam. No new pulmonary nodule is seen. There is a moderate size sliding type hiatal hernia. No mediastinal or hilar adenopathy is seen. Pneumobilia and heterogeneous mass lesions are seen in the liver. These will be described in greater detail on the CT abdomen report. IMPRESSION: Findings consistent with pulmonary metastatic disease. Several of the pulmonary nodules appear slightly larger than they did on the 04/17/2019 study. No new pulmonary nodule is appreciated MTDD
== END ==
LOC: M RAD 12:29
PROVIDERS: ATTEND Internal Medicine Hematology & Oncology
DX: R93.2 Abnormal findings on diagnostic imaging of liver and biliary tract (principal); R91.8 Other nonspecific abnormal finding of lung field; C18.9 Malignant neoplasm of colon, unspecified
CPT/HCPCS: 71260; 74178; Q9963; Q9967

== ENCOUNTER 2019-11-06 13:10 | Outpatient (CLI) | payer MEDICARE ==
[~2019-11-06] VITALS: Ht 157.5 cm; Wt 82.0 kg
[2019-11-06 13:15] VITALS: BP 119/65
[2019-11-06] MEDS ORDERED: SODIUM CHLORIDE 0.9% INJ 10 ML SYR IV PRN (15:00)
[2019-11-06 15:25] VITALS: BP 109/58
[2019-11-07] MEDS ORDERED: SODIUM CHLORIDE 0.9% INJ 10 ML SYR IV SCH (09:00)
[2019-12-11] MEDS ORDERED: ONDA8TAB10 PO (11:19)
[2019-12-11] MEDS ORDERED: PROC10TA4 PO (11:19)
== END 2019-11-06 15:25 | disposition home or self-care (01) ==
LOC: M INFU 13:10
PROVIDERS: ATTEND Family Medicine
DX: E83.42 Hypomagnesemia (principal); Z88.8 Allergy status to other drugs, medicaments and biological substances
CPT/HCPCS: 36591; 83735; 96365; J1642; J3475

== ENCOUNTER 2019-11-08 14:52 | Outpatient (CLI) | payer MEDICARE ==
[~2019-11-08] VITALS: Ht 157.5 cm; Wt 82.0 kg
[2019-11-08 15:00] VITALS: BP 118/59
[2019-11-08] MEDS ORDERED: SODIUM CHLORIDE 0.9% INJ 10 ML SYR IV PRN (15:00)
[2019-11-08 17:00] VITALS: BP 118/65
[2019-11-09] MEDS ORDERED: SODIUM CHLORIDE 0.9% INJ 10 ML SYR IV SCH (09:00)
[2019-12-11] MEDS ORDERED: PROC10TA4 PO (11:19)
[2019-12-11] MEDS ORDERED: ONDA8TAB10 PO (11:19)
== END 2019-11-08 17:00 | disposition home or self-care (01) ==
LOC: M INFU 14:52
PROVIDERS: ATTEND Family Medicine
DX: E83.42 Hypomagnesemia (principal); Z88.8 Allergy status to other drugs, medicaments and biological substances
CPT/HCPCS: 36591; 83735; 96365; J1642; J3475

== ENCOUNTER 2019-11-13 11:16 | Outpatient (CLI) | payer MEDICARE ==
[~2019-11-13] VITALS: Ht 157.5 cm; Wt 82.0 kg
[2019-11-13 11:20] VITALS: BP 152/64
[2019-11-13 11:22] VITALS: BP 135/63
[2019-11-13] MEDS ORDERED: SODIUM CHLORIDE 0.9% INJ 10 ML SYR IV PRN (12:15)
[2019-11-13 13:20] VITALS: BP 148/64
[2019-11-13] MEDS ORDERED: MINO100T PO (16:03)
[2019-11-14] MEDS ORDERED: SODIUM CHLORIDE 0.9% INJ 10 ML SYR IV SCH (09:00)
[2019-12-11] MEDS ORDERED: ONDA8TAB10 PO (11:19)
[2019-12-11] MEDS ORDERED: PROC10TA4 PO (11:19)
== END 2019-11-13 13:20 | disposition home or self-care (01) ==
LOC: M INFU 11:16
PROVIDERS: ATTEND Family Medicine
DX: E83.42 Hypomagnesemia (principal); Z88.8 Allergy status to other drugs, medicaments and biological substances
CPT/HCPCS: 36591; 83735; 96365; J1642; J3475

== ENCOUNTER 2019-11-15 14:49 | Outpatient (CLI) | payer MEDICARE ==
[~2019-11-15] VITALS: Ht 157.5 cm; Wt 82.0 kg
[~2019-11-15 14:49] MED LIST changes: +MINO100T PO
[2019-11-15 15:00] VITALS: BP 100/57
[2019-11-15] MEDS ORDERED: SODIUM CHLORIDE 0.9% INJ 10 ML SYR IV PRN (15:00)
[2019-11-15 17:06] VITALS: BP 143/64
[2019-11-16] MEDS ORDERED: SODIUM CHLORIDE 0.9% INJ 10 ML SYR IV SCH (09:00)
[2019-12-11] MEDS ORDERED: ONDA8TAB10 PO (11:19)
[2019-12-11] MEDS ORDERED: PROC10TA4 PO (11:19)
== END 2019-11-15 17:10 | disposition home or self-care (01) ==
LOC: M INFU 14:49
PROVIDERS: ATTEND Family Medicine
DX: E83.42 Hypomagnesemia (principal); Z88.8 Allergy status to other drugs, medicaments and biological substances
CPT/HCPCS: 36591; 83735; 96365; J1642; J3475

== ENCOUNTER 2019-11-17 14:54 | Outpatient (CLI) | payer MEDICARE ==
[~2019-11-17] VITALS: Ht 157.5 cm; Wt 82.0 kg
[~2019-11-17 14:54] MED LIST changes: +SODIUM CHLORIDE 0.9% INJ 10 ML SYR IV PRN; +SODIUM CHLORIDE 0.9% INJ 10 ML SYR IV SCH
[2019-11-17 15:00] VITALS: BP 106/61
[2019-11-17 16:55] VITALS: BP 119/61
[2019-12-11] MEDS ORDERED: ONDA8TAB10 PO (11:19)
[2019-12-11] MEDS ORDERED: PROC10TA4 PO (11:19)
== END 2019-11-17 16:55 | disposition home or self-care (01) ==
LOC: M INFU 14:54
PROVIDERS: ATTEND Family Medicine
DX: E83.42 Hypomagnesemia (principal)
CPT/HCPCS: 36591; 83735; 96365; J1642; J3475

== ENCOUNTER 2019-11-20 14:43 | Outpatient (CLI) | payer MEDICARE ==
[~2019-11-20] VITALS: Ht 157.5 cm; Wt 82.0 kg
[~2019-11-20 14:43] MED LIST changes: -SODIUM CHLORIDE 0.9% INJ 10 ML SYR IV PRN; -SODIUM CHLORIDE 0.9% INJ 10 ML SYR IV SCH
[2019-11-20 14:45] VITALS: BP 111/59
[2019-11-20] MEDS ORDERED: SODIUM CHLORIDE 0.9% INJ 10 ML SYR IV PRN (15:00)
[2019-11-20 16:50] VITALS: BP 124/62
[2019-11-21] MEDS ORDERED: SODIUM CHLORIDE 0.9% INJ 10 ML SYR IV SCH (09:00)
[2019-12-11] MEDS ORDERED: PROC10TA4 PO (11:19)
[2019-12-11] MEDS ORDERED: ONDA8TAB10 PO (11:19)
== END 2019-11-20 16:50 | disposition home or self-care (01) ==
LOC: M INFU 14:43
PROVIDERS: ATTEND Family Medicine
DX: E83.42 Hypomagnesemia (principal)
CPT/HCPCS: 36591; 83735; 96365; J1642; J3475

== ENCOUNTER 2019-11-22 14:47 | Outpatient (CLI) | payer MEDICARE ==
[~2019-11-22] VITALS: Ht 157.5 cm; Wt 82.0 kg
[~2019-11-22 14:47] MED LIST changes: -MAG SULF 1GM/100ML (MAG RUN) 1 GM in IV 1 EA IV PRN
[2019-11-22 14:50] VITALS: BP 120/65
[2019-11-22] MEDS: MAG SULF 1GM/100ML (MAG RUN) 1 GM in IV 1 EA IV PRN (15:45)
[2019-11-22] MEDS: SODIUM CHLORIDE 0.9% INJ 10 ML SYR IV PRN (16:36)
[2019-11-22] MEDS: MAG SULF 1GM/100ML (MAG RUN) 1 GM in IV 1 EA IV ONE (16:38)
[2019-11-22 17:47] VITALS: BP 140/59
[2019-11-23] MEDS ORDERED: SODIUM CHLORIDE 0.9% INJ 10 ML SYR IV SCH (09:00)
[2019-12-11] MEDS ORDERED: ONDA8TAB10 PO (11:19)
[2019-12-11] MEDS ORDERED: PROC10TA4 PO (11:19)
== END 2019-11-22 18:00 | disposition home or self-care (01) ==
LOC: M INFU 14:47
PROVIDERS: ATTEND Family Medicine
DX: E83.42 Hypomagnesemia (principal)
CPT/HCPCS: 36591; 83735; 96365; 96366; J1642; J3475

== ENCOUNTER 2019-11-27 14:40 | Outpatient (CLI) | payer MEDICARE ==
[~2019-11-27] VITALS: Ht 157.5 cm; Wt 82.0 kg
[~2019-11-27 14:40] MED LIST changes: +MAG SULF 1GM/100ML (MAG RUN) 1 GM in IV 1 EA IV PRN; +SODIUM CHLORIDE 0.9% INJ 10 ML SYR IV PRN; +SODIUM CHLORIDE 0.9% INJ 10 ML SYR IV SCH
[2019-11-27 14:50] VITALS: BP 117/66
[2019-11-27 16:30] VITALS: BP 146/70
[2019-12-11] MEDS ORDERED: ONDA8TAB10 PO (11:19)
[2019-12-11] MEDS ORDERED: PROC10TA4 PO (11:19)
== END 2019-11-27 16:30 | disposition home or self-care (01) ==
LOC: M INFU 14:40
PROVIDERS: ATTEND Family Medicine
DX: E83.42 Hypomagnesemia (principal)
CPT/HCPCS: 36591; 83735; 96365; J1642; J3475

== ENCOUNTER 2019-11-29 14:51 | Outpatient (CLI) | payer MEDICARE ==
[~2019-11-29] VITALS: Ht 157.5 cm; Wt 82.0 kg
[~2019-11-29 14:51] MED LIST changes: -SODIUM CHLORIDE 0.9% INJ 10 ML SYR IV SCH
[2019-11-29 15:10] VITALS: BP 112/57
[2019-11-29 17:10] VITALS: BP 134/63
[2019-11-30] MEDS ORDERED: SODIUM CHLORIDE 0.9% INJ 10 ML SYR IV SCH (09:00)
[2019-12-11] MEDS ORDERED: PROC10TA4 PO (11:19)
[2019-12-11] MEDS ORDERED: ONDA8TAB10 PO (11:19)
== END 2019-11-29 17:10 | disposition home or self-care (01) ==
LOC: M INFU 14:51
PROVIDERS: ATTEND Family Medicine
DX: E83.42 Hypomagnesemia (principal); Z88.8 Allergy status to other drugs, medicaments and biological substances
CPT/HCPCS: 36591; 83735; 96365; J1642; J3475

== ENCOUNTER 2019-12-01 14:46 | Outpatient (CLI) | payer MEDICARE ==
[~2019-12-01] VITALS: Ht 157.5 cm; Wt 82.0 kg
[~2019-12-01 14:46] MED LIST changes: -SODIUM CHLORIDE 0.9% INJ 10 ML SYR IV PRN
[2019-12-01 14:55] VITALS: BP 128/72
[2019-12-01] MEDS ORDERED: SODIUM CHLORIDE 0.9% INJ 10 ML SYR IV PRN (15:00)
[2019-12-01 16:45] VITALS: BP 122/68
[2019-12-02] MEDS ORDERED: SODIUM CHLORIDE 0.9% INJ 10 ML SYR IV SCH (09:00)
== END 2019-12-01 16:45 | disposition home or self-care (01) ==
LOC: M INFU 14:46
PROVIDERS: ATTEND Family Medicine
DX: E83.42 Hypomagnesemia (principal)
CPT/HCPCS: 36591; 83735; 96365; J1642; J3475

== ENCOUNTER 2019-12-04 14:57 | Outpatient (CLI) | payer MEDICARE ==
[~2019-12-04] VITALS: Ht 157.5 cm; Wt 82.0 kg
[~2019-12-04 14:57] MED LIST changes: -MAG SULF 1GM/100ML (MAG RUN) 1 GM in IV 1 EA IV PRN; +SODIUM CHLORIDE 0.9% INJ 10 ML SYR IV PRN; +SODIUM CHLORIDE 0.9% INJ 10 ML SYR IV SCH
[2019-12-04 15:00] VITALS: BP 144/63
[2019-12-04] MEDS ORDERED: MAGNESIUM SULFATE 1GM/100ML D5W BAG (10MG/ML) As Ordered ONE (15:42)
[2019-12-04] MEDS: MAG SULF 1GM/100ML (MAG RUN) 1 GM in IV 1 EA IV PRN ×2 (15:48→16:45)
[2019-12-04 18:00] VITALS: BP 131/59
== END 2019-12-04 18:00 | disposition home or self-care (01) ==
LOC: M INFU 14:57
PROVIDERS: ATTEND Family Medicine
DX: E83.42 Hypomagnesemia (principal)
CPT/HCPCS: 36591; 83735; 96365; 96366; J1642; J3475

== ENCOUNTER 2019-12-06 14:50 | Outpatient (CLI) | payer MEDICARE ==
[~2019-12-06] VITALS: Ht 157.5 cm; Wt 82.0 kg
[~2019-12-06 14:50] MED LIST changes: -SODIUM CHLORIDE 0.9% INJ 10 ML SYR IV PRN; -SODIUM CHLORIDE 0.9% INJ 10 ML SYR IV SCH
[2019-12-06 15:00] VITALS: BP 104/57
[2019-12-06] MEDS ORDERED: SODIUM CHLORIDE 0.9% INJ 10 ML SYR IV PRN (15:00)
[2019-12-06] MEDS ORDERED: MAG SULF 1GM/100ML (MAG RUN) 1 GM in IV 1 EA IV PRN (15:00)
[2019-12-06] MEDS ORDERED: MAGNESIUM SULFATE 1GM/100ML D5W BAG (10MG/ML) As Ordered ONE (15:45)
[2019-12-06 16:58] VITALS: BP 137/65
[2019-12-07] MEDS ORDERED: SODIUM CHLORIDE 0.9% INJ 10 ML SYR IV SCH (09:00)
== END 2019-12-06 17:00 | disposition home or self-care (01) ==
LOC: M INFU 14:50
PROVIDERS: ATTEND Family Medicine
DX: E83.42 Hypomagnesemia (principal)
CPT/HCPCS: 36591; 83735; 96365; J1642; J3475

== ENCOUNTER 2019-12-11 14:46 | Outpatient (CLI) | payer MEDICARE ==
[~2019-12-11] VITALS: Ht 157.5 cm; Wt 82.0 kg
[2019-12-11 14:35] VITALS: BP 107/59
[~2019-12-11 14:46] MED LIST changes: +ONDA8TAB10 PO; +PROC10TA4 PO
[2019-12-11] MEDS ORDERED: SODIUM CHLORIDE 0.9% INJ 10 ML SYR IV PRN (15:00)
[2019-12-11] MEDS: MAG SULF 1GM/100ML (MAG RUN) 1 GM in IV 1 EA IV PRN ×2 (15:54→16:51)
[2019-12-11 17:54] VITALS: BP 132/61
[2019-12-12] MEDS ORDERED: SODIUM CHLORIDE 0.9% INJ 10 ML SYR IV SCH (09:00)
== END 2019-12-11 18:00 | disposition home or self-care (01) ==
LOC: M INFU 14:46
PROVIDERS: ATTEND Family Medicine
DX: E83.42 Hypomagnesemia (principal)
CPT/HCPCS: 36591; 83735; 96365; 96366; J1642; J3475

== ENCOUNTER 2019-12-13 14:44 | Outpatient (CLI) | payer MEDICARE ==
[~2019-12-13] VITALS: Ht 157.5 cm; Wt 82.0 kg
[~2019-12-13 14:44] MED LIST changes: +MAG SULF 1GM/100ML (MAG RUN) 1 GM in IV 1 EA IV PRN
[2019-12-13 14:45] VITALS: BP 121/67
[2019-12-13] MEDS ORDERED: SODIUM CHLORIDE 0.9% INJ 10 ML SYR IV PRN (15:00)
[2019-12-13 18:15] VITALS: BP 157/77
[2019-12-14] MEDS ORDERED: SODIUM CHLORIDE 0.9% INJ 10 ML SYR IV SCH (09:00)
== END 2019-12-13 18:15 | disposition home or self-care (01) ==
LOC: M INFU 14:44
PROVIDERS: ATTEND Family Medicine
DX: E83.42 Hypomagnesemia (principal); Z88.8 Allergy status to other drugs, medicaments and biological substances
CPT/HCPCS: 36591; 83735; 96374; J1642; J3475

== ENCOUNTER 2019-12-15 14:50 | Outpatient (CLI) | payer MEDICARE ==
[~2019-12-15] VITALS: Ht 157.5 cm; Wt 82.0 kg
[~2019-12-15 14:50] MED LIST changes: -MAG SULF 1GM/100ML (MAG RUN) 1 GM in IV 1 EA IV PRN
[2019-12-15 15:00] VITALS: BP 119/60
[2019-12-15] MEDS ORDERED: SODIUM CHLORIDE 0.9% INJ 10 ML SYR IV PRN (15:00)
[2019-12-15] MEDS: MAG SULF 1GM/100ML (MAG RUN) 1 GM in IV 1 EA IV PRN ×2 (15:42→16:34)
[2019-12-15 18:00] VITALS: BP 142/67
[2019-12-16] MEDS ORDERED: SODIUM CHLORIDE 0.9% INJ 10 ML SYR IV SCH (09:00)
== END 2019-12-15 18:00 | disposition home or self-care (01) ==
LOC: M INFU 14:50
PROVIDERS: ATTEND Family Medicine
DX: E83.42 Hypomagnesemia (principal); Z88.8 Allergy status to other drugs, medicaments and biological substances
CPT/HCPCS: 36591; 83735; 96365; 96366; J1642; J3475

== ENCOUNTER 2019-12-22 14:44 | Outpatient (CLI) | payer MEDICARE ==
[~2019-12-22] VITALS: Ht 157.5 cm; Wt 82.0 kg
[~2019-12-22 14:44] MED LIST changes: +MAG SULF 1GM/100ML (MAG RUN) 1 GM in IV 1 EA IV PRN
[2019-12-22 14:50] VITALS: BP_SYST 114; BP_SYST 145; BP_DIAS 60; BP_DIAS 88
[2019-12-22] MEDS ORDERED: MAGNESIUM SULFATE 1GM/100ML D5W BAG (10MG/ML) As Ordered ONE (15:36)
[2019-12-22] MEDS ORDERED: SODIUM CHLORIDE 0.9% INJ 10 ML SYR IV PRN (16:00)
[2019-12-22 16:48] VITALS: BP 151/66
[2019-12-23] MEDS ORDERED: SODIUM CHLORIDE 0.9% INJ 10 ML SYR IV SCH (09:00)
== END 2019-12-22 16:50 | disposition home or self-care (01) ==
LOC: M INFU 14:44
PROVIDERS: ATTEND Family Medicine
DX: E83.42 Hypomagnesemia (principal); Z88.8 Allergy status to other drugs, medicaments and biological substances
CPT/HCPCS: 36591; 83735; 96365; J1642; J3475

== ENCOUNTER 2019-12-25 14:40 | Outpatient (CLI) | payer MEDICARE ==
[~2019-12-25] VITALS: Ht 157.5 cm; Wt 82.0 kg
[2019-12-25] MEDS ORDERED: SODIUM CHLORIDE 0.9% INJ 10 ML SYR IV PRN (15:00)
[2019-12-25 17:00] VITALS: BP 134/88
[2019-12-26] MEDS ORDERED: SODIUM CHLORIDE 0.9% INJ 10 ML SYR IV SCH (09:00)
== END 2019-12-25 17:00 | disposition home or self-care (01) ==
LOC: M INFU 14:40
PROVIDERS: ATTEND Family Medicine
DX: E83.42 Hypomagnesemia (principal); Z88.8 Allergy status to other drugs, medicaments and biological substances
CPT/HCPCS: 36593; 83735; 96365; J1642; J3475

== ENCOUNTER 2019-12-27 14:47 | Outpatient (CLI) | payer MEDICARE ==
[~2019-12-27] VITALS: Ht 157.5 cm; Wt 82.0 kg
[2019-12-27] MEDS ORDERED: SODIUM CHLORIDE 0.9% INJ 10 ML SYR IV PRN (15:00)
[2019-12-27 16:22] VITALS: BP 135/68
[2019-12-27 16:53] VITALS: BP 138/67
[2019-12-28] MEDS ORDERED: SODIUM CHLORIDE 0.9% INJ 10 ML SYR IV SCH (09:00)
== END 2019-12-27 16:55 | disposition home or self-care (01) ==
LOC: M INFU 14:47
PROVIDERS: ATTEND Family Medicine
DX: E83.42 Hypomagnesemia (principal); Z88.8 Allergy status to other drugs, medicaments and biological substances
CPT/HCPCS: 36591; 83735; 96365; J1642; J3475

== ENCOUNTER 2019-12-29 12:43 | Outpatient (CLI) | payer MEDICARE ==
[~2019-12-29] VITALS: Ht 157.5 cm; Wt 82.0 kg
[2019-12-29 12:45] VITALS: BP 114/78
[2019-12-29 14:55] VITALS: BP 117/62
[2019-12-29] MEDS ORDERED: SODIUM CHLORIDE 0.9% INJ 10 ML SYR IV PRN (15:00)
[2019-12-30] MEDS ORDERED: SODIUM CHLORIDE 0.9% INJ 10 ML SYR IV SCH (09:00)
== END 2019-12-29 14:55 | disposition home or self-care (01) ==
LOC: M INFU 12:43
PROVIDERS: ATTEND Family Medicine
DX: E83.42 Hypomagnesemia (principal); Z88.8 Allergy status to other drugs, medicaments and biological substances
CPT/HCPCS: 36591; 83735; 96365; J1642; J3475

== ENCOUNTER 2020-01-03 03:26 | Emergency (ER) | payer MEDICARE ==
[~2020-01-03] VITALS: Ht 157.5 cm; Wt 72.0 kg
[~2020-01-03 03:26] MED LIST changes: -MAG SULF 1GM/100ML (MAG RUN) 1 GM in IV 1 EA IV PRN
[2020-01-03 04:17] LABS: BASO % 0.2 % (0.0-1.0); HEMATOCRIT 38.3 % (36.0-47.0); HEMOGLOBIN 11.2 g/dl (12.0-15.5); LYMPH # 0.6 10^3/uL (1.5-5.0); LYMPH % 6.8 % (24.0-44.0); MEAN CORPUSCULAR HEMOGLOBIN 25.8 pg (27.0-33.0); MEAN CORPUSCULAR HGB CONC 29.2 g/dl (32.0-36.5); MEAN CORPUSCULAR VOLUME 88.2 fl (80.0-96.0); MONO # 0.5 10^3/uL (0.0-0.8); MONO % 5.1 % (0.0-5.0); NEUTROPHILS # 8.1 10^3/uL (1.5-8.5); NEUTROPHILS % 87.6 % (36.0-66.0); PLATELET COUNT, AUTOMATED 367 10^3/uL (150-450); RED BLOOD COUNT 4.34 10^6/uL (4.00-5.40); WHITE BLOOD COUNT 9.2 10^3/uL (4.0-10.0)
[2020-01-03 04:43] LABS: ALBUMIN 2.8 GM/DL (3.2-5.2); BILIRUBIN,DIRECT 0.1 MG/DL (0.0-0.2); BILIRUBIN,TOTAL 0.5 MG/DL (0.2-1.0); TOTAL PROTEIN 6.3 GM/DL (6.4-8.2)
[2020-01-03] MEDS ORDERED: ONDANSETRON 4MG/2ML VIAL IV ONE (05:45)
[2020-01-03] MEDS ORDERED: FAMOTIDINE INJ 20MG/2ML VIAL (S0028 PER 1) IVP ONE (05:45)
[2020-01-03 06:30] VITALS: BP 112/65
== END 2020-01-03 07:11 | disposition home or self-care (01) ==
LOC: M ED 03:26
DX: R10.84 Generalized abdominal pain (principal); R11.0 Nausea; T45.1X5A Adverse effect of antineoplastic and immunosuppressive drugs, initial encounter; C18.9 Malignant neoplasm of colon, unspecified; E11.9 Type 2 diabetes mellitus without complications; Z88.8 Allergy status to other drugs, medicaments and biological substances; Z79.899 Other long term (current) drug therapy; Z79.82 Long term (current) use of aspirin; Z79.01 Long term (current) use of anticoagulants
CPT/HCPCS: 80047; 80076; 83690; 85025; 96374; 96375; 99284; J2405

== ENCOUNTER 2020-01-08 14:46 | Outpatient (CLI) | payer MEDICARE ==
[~2020-01-08] VITALS: Ht 157.5 cm; Wt 82.0 kg
[~2020-01-08 14:46] MED LIST changes: +MAG SULF 1GM/100ML (MAG RUN) 1 GM in IV 1 EA IV PRN
[2020-01-08] MEDS ORDERED: SODIUM CHLORIDE 0.9% INJ 10 ML SYR IV PRN (15:00)
[2020-01-08 15:06] VITALS: BP 130/78
[2020-01-08 16:50] VITALS: BP 142/67
[2020-01-09] MEDS ORDERED: SODIUM CHLORIDE 0.9% INJ 10 ML SYR IV SCH (09:00)
== END 2020-01-08 16:50 | disposition home or self-care (01) ==
LOC: M INFU 14:46
PROVIDERS: ATTEND Family Medicine
DX: E83.42 Hypomagnesemia (principal); Z88.8 Allergy status to other drugs, medicaments and biological substances
CPT/HCPCS: 36591; 83735; 96365; J1642; J3475

== ENCOUNTER 2020-01-10 15:09 | Outpatient (CLI) | payer MEDICARE ==
[~2020-01-10] VITALS: Ht 157.5 cm; Wt 82.0 kg
[~2020-01-10 15:09] MED LIST changes: +SODIUM CHLORIDE 0.9% INJ 10 ML SYR IV PRN
[2020-01-10 15:49] VITALS: BP 121/72
[2020-01-10 17:15] VITALS: BP 116/68
[2020-01-11] MEDS ORDERED: SODIUM CHLORIDE 0.9% INJ 10 ML SYR IV SCH (09:00)
== END 2020-01-10 17:15 | disposition home or self-care (01) ==
LOC: M INFU 15:09
PROVIDERS: ATTEND Family Medicine
DX: E83.42 Hypomagnesemia (principal); Z88.8 Allergy status to other drugs, medicaments and biological substances
CPT/HCPCS: 36591; 83735; 96365; J1642; J3475

== ENCOUNTER 2020-01-12 14:44 | Outpatient (CLI) | payer MEDICARE ==
[~2020-01-12] VITALS: Ht 157.5 cm; Wt 82.0 kg
[~2020-01-12 14:44] MED LIST changes: -SODIUM CHLORIDE 0.9% INJ 10 ML SYR IV PRN
[2020-01-12 15:00] VITALS: BP 149/77
[2020-01-12] MEDS ORDERED: SODIUM CHLORIDE 0.9% INJ 10 ML SYR IV PRN (15:30)
[2020-01-12 16:45] VITALS: BP 144/65
[2020-01-13] MEDS ORDERED: SODIUM CHLORIDE 0.9% INJ 10 ML SYR IV SCH (09:00)
== END 2020-01-12 16:45 | disposition home or self-care (01) ==
LOC: M INFU 14:44
PROVIDERS: ATTEND Family Medicine
DX: E83.42 Hypomagnesemia (principal); Z88.8 Allergy status to other drugs, medicaments and biological substances
CPT/HCPCS: 36591; 83735; 96365; J1642; J3475

== ENCOUNTER 2020-01-19 14:50 | Outpatient (CLI) | payer MEDICARE ==
[~2020-01-19] VITALS: Ht 157.5 cm; Wt 82.0 kg
[2020-01-19 15:00] VITALS: BP 146/67
[2020-01-19] MEDS ORDERED: SODIUM CHLORIDE 0.9% INJ 10 ML SYR IV PRN (15:00)
[2020-01-20] MEDS ORDERED: SODIUM CHLORIDE 0.9% INJ 10 ML SYR IV SCH (09:00)
== END 2020-01-19 16:00 | disposition home or self-care (01) ==
LOC: M INFU 14:50
PROVIDERS: ATTEND Family Medicine
DX: E83.42 Hypomagnesemia (principal); Z88.8 Allergy status to other drugs, medicaments and biological substances
CPT/HCPCS: 36591; 83735; J1642

== ENCOUNTER → 2020-02-20 | Outpatient (CLI) | payer MEDICARE ==
[~2020-02-20] MED LIST changes: +GASTROGRAFIN SOLUTION 30ML (Q9963) As Ordered ONE; -MAG SULF 1GM/100ML (MAG RUN) 1 GM in IV 1 EA IV PRN
--- NOTE | 2020-02-21 08:49 | REP ---
INDICATION: COLON CA COMPARISON: 04/17/2019 TECHNIQUE: Axial noncontrast images from the thoracic inlet to the upper abdomen with coronal and sagittal reformations. This CT examination was performed using the following dose reduction techniques: Automated exposure control, adjustment of mA and/or kv according to the patient's size, and use of iterative reconstruction technique. FINDINGS: The bilateral lung gregg are well aerated and again demonstrate relatively stable noncalcified nodules bilaterally which are consistent with metastatic disease as well and is somewhat stable chronic appearing linear fibroatelectatic changes primarily identified in the left base. However, there is a new small right pleural effusion with associated atelectasis and the nodule in the lingula which measures approximately 7 mm as well as a 5 mm nodule along the periphery of the left upper lobe (image 35) appear slightly more prominent than prior examination. These findings are suspicious for active pathology/metastatic disease. Mediastinum and cardiac silhouette are relatively stable. No significant increased adenopathy is appreciated. A small pericardial effusion is unchanged along with a moderate hiatal hernia which remains stable. IMPRESSION: 1. New small right pleural effusion and right basilar atelectasis along with slightly more prominent appearance to presumed metastatic nodules in the lingula and lateral aspect of the left upper lobe. The remainder of the nodules appear relatively stable as compared to prior examination and there is no significant increased adenopathy noted. <Electronically signed by Jethro King > 02/21/20 [id number]
--- NOTE | 2020-02-21 09:24 | REP ---
INDICATION: COLON CA COMPARISON: 11/03/2019, 07/30/2019 TECHNIQUE: Axial noncontrast images from the lung bases to the pubic symphysis with coronal and sagittal reformations. This CT examination was performed using the following dose reduction techniques: Automated exposure control, adjustment of mA and/or kv according to the patient's size, and use of iterative reconstruction technique. FINDINGS: Liver demonstrates vague low-density area with small amounts of internal calcification within the posterior right lobe consistent with the area of known neoplasm but poorly evaluated due to the lack of contrast. Moderate pneumobilia with common bile duct (CBD) stent is again identified in stable position. Spleen, pancreas, bilateral adrenal glands and kidneys are essentially normal/stable. Renal hypodensities and hyperdensities again noted and likely representing simple and complex cysts. Stable moderate to large hiatal hernia again noted. The enteric system is without obstruction or acute inflammatory process. Pelvis demonstrates normal bladder and evidence for prior hysterectomy. No ascites. No free air. No significant intraperitoneal or retroperitoneal adenopathy. No obvious focal mass lesion identified. Abdominal aorta demonstrates atherosclerotic changes without aneurysm. Musculoskeletal structures demonstrate degenerative changes without acute osseous abnormality. IMPRESSION: 1. Examination is limited by noncontrast evaluation and low-density changes within the right hepatic lobe are again noted and consistent with the underlying known area of neoplasm. 2. Stable pneumobilia and CBD stent. 3. Stable renal hypodense and hyperdense lesions likely representing simple and complex cysts. 4. No acute abdominopelvic pathology or evidence for metastatic disease/recurrence otherwise identified. No ascites. No free air. No adenopathy. <Electronically signed by Jethro King > 02/21/20 [id number]
== END ==
LOC: M RAD 09:01
PROVIDERS: ATTEND Internal Medicine Medical Oncology
DX: C18.9 Malignant neoplasm of colon, unspecified (principal)
CPT/HCPCS: 71250; 74176; Q9963

== ENCOUNTER → 2020-03-21 | Outpatient (REF) | payer MEDICARE ==
[~2020-03-21] MED LIST changes: +BACT800T5 PO; -GASTROGRAFIN SOLUTION 30ML (Q9963) As Ordered ONE; +ISOS1TAB35 PO; +ISOS1TAB36 PO; -ISOS30TA4 PO; -ISOS60TA2 PO; -MAG400TA PO; +MAGN400T35 PO; +POTA20TA6 PO
[2020-03-21 13:16] LABS: APPEARANCE, URINE HAZY (CLEAR); BACTERIA, URINE AUTO 1+ (NEGATIVE); BILIRUBIN, URINE AUTO NEGATIVE (NEGATIVE); BLOOD, URINE BLOOD 1+ (NEGATIVE); COLOR, URINE YELLOW (YELLOW); GLUCOSE, URINE (UA) AUTO NEGATIVE (NEGATIVE); KETONE, URINE AUTO NEGATIVE (NEGATIVE); LEUKOCYTE ESTERASE, URINE AUTO 2+ (NEGATIVE); MUCUS, URINE SMALL (NEGATIVE); NITRITE, URINE AUTO NEGATIVE (NEGATIVE); PROTEIN, URINE AUTO NEGATIVE (NEGATIVE); RBC, URINE AUTO 1 /HPF (0-3); SPECIFIC GRAVITY URINE AUTO 1.016 (1.002-1.035); SQUAMOUS EPITHELIAL CELL UR AU 2 /HPF (0-6); UROBILINOGEN, URINE AUTO 0.2 mg/dL (0.0-2.0); WBC, URINE AUTO 13 /HPF (0-3)
[2020-03-21 13:17] LABS: HEMATOCRIT 39.8 % (36.0-47.0); HEMOGLOBIN 12.1 g/dl (12.0-15.5); MEAN CORPUSCULAR HEMOGLOBIN 26.5 pg (27.0-33.0); MEAN CORPUSCULAR HGB CONC 30.4 g/dl (32.0-36.5); MEAN CORPUSCULAR VOLUME 87.3 fl (80.0-96.0); PLATELET COUNT, AUTOMATED 225 10^3/uL (150-450); RED BLOOD COUNT 4.56 10^6/uL (4.00-5.40); WHITE BLOOD COUNT 6.3 10^3/uL (4.0-10.0)
[2020-03-21 14:06] LABS: ALBUMIN 3.2 GM/DL (3.2-5.2); BILIRUBIN,TOTAL 0.8 MG/DL (0.2-1.0); CALCIUM LEVEL 9.5 MG/DL (8.8-10.2); CHOLESTEROL RISK RATIO 2.538 (<5); CREATININE FOR GFR 1.07 MG/DL (0.55-1.30); FREE T4 1.22 NG/DL (0.76-1.46); MAGNESIUM LEVEL 1.9 MG/DL (1.8-2.4); PERCENT SATURATION 13.5 % (13.2-45.0); POTASSIUM SERUM 4.7 MEQ/L (3.5-5.1); THYROID STIMULATING HORMONE 7.39 uIU/ML (0.358-3.740)
== END ==
LOC: M SFHCADAM 09:35
PROVIDERS: ATTEND Family Medicine
DX: I25.10 Atherosclerotic heart disease of native coronary artery without angina pectoris (principal); I11.9 Hypertensive heart disease without heart failure; D63.8 Anemia in other chronic diseases classified elsewhere; E03.9 Hypothyroidism, unspecified; E78.5 Hyperlipidemia, unspecified; E83.42 Hypomagnesemia; R10.2 Pelvic and perineal pain
CPT/HCPCS: 80053; 80061; 81001; 82728; 83550; 83735; 84439; 84443; 85027; 85046; 87086; G0463

== ENCOUNTER 2020-04-08 08:53 | Inpatient (IN) | payer MEDICARE ==
[~2020-04-08] VITALS: Ht 157.5 cm; Wt 75.0 kg
[2020-04-08] MEDS: LEVOTHYROXINE 88MCG TABLET (0.088 MG) PO SCH (06:00)
[2020-04-08] MEDS: LOSARTAN 25 MG TAB PO SCH (09:00)
[2020-04-08] MEDS: busPIRone 10 MG TAB PO SCH ×2 (09:00→21:27)
[2020-04-08] MEDS ORDERED: NS 1,000 ML IV SCH (09:46)
--- NOTE | 2020-04-08 09:47 | REP ---
INDICATION: abdl pain. COMPARISON: 08/01/2019, 11/29/2018. TECHNIQUE: AP portable FINDINGS: Indwelling right jugular port catheter terminating in the right atrium and a pacer unit over the left upper chest with its single lead into the right ventricle. These are unchanged. There is some basilar fibrotic change both CP angles. No gross effusion. No dense consolidation or parenchymal mass. No visible nodule or pneumothorax. The heart is magnified by AP portable technique but has left ventricular configuration and left atrial enlargement. There is no vascular redistribution or edema. The aorta is mildly tortuous without aneurysm. The airway is intact. There is no widening of the mediastinum. Bony thorax shows some minor degenerative changes and stable mild degenerative change in the shoulders as well. No free air under the diaphragm. IMPRESSION: 1. Indwelling right jugular port catheter and a single lead pacer over the left mid chest with its lead terminating in the right ventricle, unchanged. 2. Left ventricular configuration heart with some left atrial enlargement. There is no vascular redistribution or pulmonary edema. No definite effusion or dense consolidation. Some minor basilar fibrotic change seen. No pneumothorax. No free air under the diaphragm. <Electronically signed by George Sosa > 04/08/20 09
[2020-04-08] MEDS ORDERED: fentaNYL 100 MCG/2 ML INJECTION (J3010) IV ONE ×2 (09:50→10:15)
[2020-04-08 09:54] LABS: BASO % 0.3 % (0.0-1.0); HEMATOCRIT 37.5 % (36.0-47.0); HEMOGLOBIN 11.2 g/dl (12.0-15.5); LYMPH # 0.2 10^3/uL (1.5-5.0); LYMPH % 5.7 % (24.0-44.0); MEAN CORPUSCULAR HEMOGLOBIN 26.2 pg (27.0-33.0); MEAN CORPUSCULAR HGB CONC 29.9 g/dl (32.0-36.5); MEAN CORPUSCULAR VOLUME 87.6 fl (80.0-96.0); MONO # 0.6 10^3/uL (0.0-0.8); MONO % 15.1 % (2.0-8.0); NEUTROPHILS % 78.1 % (36.0-66.0); PLATELET COUNT, AUTOMATED 143 10^3/uL (150-450); RED BLOOD COUNT 4.28 10^6/uL (4.00-5.40); WHITE BLOOD COUNT 3.9 10^3/uL (4.0-10.0)
[2020-04-08 10:04] LABS: INR 1.8; PROTHROMBIN TIME 21.3 SECONDS (12.5-14.3)
[2020-04-08 10:05] LABS: PARTIAL THROMBOPLASTIN TIME 27.2 SECONDS (24.2-38.5)
[2020-04-08 10:44] LABS: ALBUMIN 2.8 GM/DL (3.2-5.2); BILIRUBIN,DIRECT 0.4 MG/DL (0.0-0.2); BILIRUBIN,TOTAL 1.2 MG/DL (0.2-1.0); CK-MB VALUE MASS 1.2 NG/ML (<3.6); MAGNESIUM LEVEL 1.7 MG/DL (1.8-2.4); MB/CK RELATIVE INDEX 1.62 (< OR =4); TOTAL PROTEIN 5.2 GM/DL (6.4-8.2); TROPONIN I 0.11 NG/ML (< 0.10)
[2020-04-08] MEDS ORDERED: ISOVUE-370 76% 100ML VIAL As Ordered ONE (11:10)
[2020-04-08] MEDS ORDERED: MAG SULF 1GM/100ML (MAG RUN) 1 GM in IV 1 EA IV ONE ×2 (11:10→17:00)
--- NOTE | 2020-04-08 12:12 | REP ---
INDICATION: abdominal pain and SOB COMPARISON: 02/20/2020 TECHNIQUE: Axial contrast enhanced images from the thoracic inlet to the upper abdomen using pulmonary embolus technique with multiplanar re-formations. 100 ml Isovue 370 intravenous contrast material administered without complication. Examination is followed by CT of the abdomen and pelvis. This CT examination was performed using the following dose reduction techniques: Automated exposure control, adjustment of mA and/or kv according to the patient's size, and use of iterative reconstruction technique. FINDINGS: Satisfactory enhancement of the pulmonary vasculature is achieved and no filling defects are identified to suggest pulmonary embolus. There is evidence for cardiomegaly with small pericardial effusion similar to prior examination. The pulmonary arteries are moderately enlarged including right main pulmonary artery measuring 3 cm diameter suggesting chronic pulmonary hypertension. Thoracic aorta is normal in appearance without aneurysm or dissection. [id number] and pacemaker in stable position. The lung gregg demonstrate chronic interstitial changes along with mild bibasilar atelectasis and small right pleural effusion which are similar to prior examination. Few scattered bilateral pulmonary nodules including 8 mm lingular nodule remain stable. Limited upper abdomen demonstrates biliary stent and pneumobilia similar to prior examination. Bilateral adrenal glands are normal. IMPRESSION: 1. No evidence for pulmonary embolus. 2. Mild bibasilar atelectasis and small right pleural effusion along with chronic pulmonary parenchymal changes and few scattered nodules similar to prior examination. 3. Cardiomegaly with small pericardial effusion and dilated right pulmonary artery suggesting chronic pulmonary hypertension similar to prior examination. <Electronically signed by Jethro King > 04/08/20 [id number]
--- NOTE | 2020-04-08 12:20 | REP ---
INDICATION: abdominal pain. COMPARISON: 07/30/2019 TECHNIQUE: Axial contrast-enhanced images from the lung bases to the pubic symphysis using 100 cc Isovue 370 intravenous contrast material. Coronal and sagittal reformations obtained. This CT examination was performed using the following dose reduction techniques: Automated exposure control, adjustment of mA and/or kv according to the patient's size, and the use of iterative reconstruction technique. FINDINGS: Liver demonstrates multiple rim enhancing malignant appearing lesions in the right lobe which may be slightly increased from prior examination although evaluation and comparison is limited due to variation in technique. Pneumobilia is again identified with biliary stent extending into the duodenum. Low-density areas within the spleen likely due to heterogeneous vascular enhancement rather than significant pathology. Pancreas, bilateral adrenal glands, and kidneys with age-related renal changes and renal cysts remain stable. There is mucosal thickening and significant pericolonic inflammatory stranding involving distal small bowel through the terminal ileum in the lower pelvis and right lower quadrant with associated small bowel diverticulum (series 501; images 85-125). The cecum and visualized ascending colon appear relatively normal as does the rest of the small bowel and large bowel. Findings are most compatible with an infectious/inflammatory process including small bowel diverticulitis involving the distal to terminal ileum. Differential diagnosis cannot exclude malignancy given the patient's history. Pelvis demonstrates relatively normal normal bladder and evidence for prior hysterectomy. No ascites. No free air. No obvious adenopathy. Abdominal aorta and vasculature appear normal. Musculoskeletal structures demonstrate osteopenia and degenerative changes. IMPRESSION: 1. Significant changes involving the right lower quadrant small bowel including distal terminal ileum as described above. Findings most compatible with infectious/inflammatory process including possible diverticulitis involving the small bowel. Differential diagnosis cannot exclude malignancy given the patient's history. 2. Hepatic lesions consistent with metastatic disease relatively similar to prior examination although subtle changes cannot be excluded due to variation in technique. 3. Further chronic findings as described above similar to prior examinations. <Electronically signed by Jethro King > 04/08/20 [id number]
[2020-04-08] MEDS ORDERED: PIPERACILLIN/TAZOBACTAM SOD 4.5 GM in D5W MINI-BAG PLUS 50 ML IV ONE (12:35)
[2020-04-08] MEDS: MAGNESIUM OXIDE 400MG TAB (MAG-OX) PO SCH ×3 (13:00→21:27)
[2020-04-08] MEDS ORDERED: SYNT88TA2 PO (13:01)
[2020-04-08] MEDS ORDERED: METO1TAB32 PO (13:36)
[2020-04-08] MEDS ORDERED: ONDANSETRON 4MG/2ML VIAL IV PRN (14:30)
[2020-04-08 16:45] VITALS: BP 119/49
[2020-04-08] MEDS ORDERED: MORPHINE 4 MG/ML 1ML VIAL/SYRINGE (J2270) IV PRN (16:45)
[2020-04-08] MEDS: OMEPRAZOLE 20 MG CAP PO SCH (17:14)
[2020-04-08] MEDS: ATORVASTATIN 20 MG TAB PO SCH (17:14)
[2020-04-08] MEDS: ASPIRIN 81 MG ENTERIC TAB PO SCH (17:14)
[2020-04-08] MEDS: NS 1,000 ML IV SCH (17:15)
[2020-04-08] MEDS: PIPERACILLIN/TAZOBACTAM SOD 3.375 GM in D5W MINI-BAG PLUS 50 ML IV SCH (18:32)
--- NOTE | 2020-04-08 19:27 | ECGEPIP ---
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
[2020-04-08] MEDS: APIXABAN 5 MG TAB (ELIQUIS) PO SCH (21:27)
[2020-04-08] MEDS: METOPROLOL TART 12.5 MG PER 1/2 TAB PO SCH (21:27)
[2020-04-08 21:35] VITALS: BP 116/51
[2020-04-09 02:00] VITALS: BP 112/55
[2020-04-09] MEDS: PIPERACILLIN/TAZOBACTAM SOD 3.375 GM in D5W MINI-BAG PLUS 50 ML IV SCH ×4 (02:22→18:16)
[2020-04-09 05:30] VITALS: BP 112/55
[2020-04-09] MEDS: LEVOTHYROXINE 88MCG TABLET (0.088 MG) PO SCH (05:32)
[2020-04-09 05:38] LABS: BASO % 0.4 % (0.0-1.0); EOS # 0.1 10^3/uL (0.0-0.5); HEMATOCRIT 30.3 % (36.0-47.0); HEMOGLOBIN 9.2 g/dl (12.0-15.5); LYMPH # 0.4 10^3/uL (1.5-5.0); LYMPH % 13.2 % (24.0-44.0); MEAN CORPUSCULAR HEMOGLOBIN 26.9 pg (27.0-33.0); MEAN CORPUSCULAR HGB CONC 30.4 g/dl (32.0-36.5); MEAN CORPUSCULAR VOLUME 88.6 fl (80.0-96.0); MONO # 0.6 10^3/uL (0.0-0.8); MONO % 21.1 % (2.0-8.0); NEUTROPHILS # 1.6 10^3/uL (1.5-8.5); NEUTROPHILS % 60.8 % (36.0-66.0); PLATELET COUNT, AUTOMATED 116 10^3/uL (150-450); RED BLOOD COUNT 3.42 10^6/uL (4.00-5.40); WHITE BLOOD COUNT 2.7 10^3/uL (4.0-10.0)
[2020-04-09 05:57] LABS: BLOOD UREA NITROGEN 12 MG/DL (7-18); CALCIUM LEVEL 7.5 MG/DL (8.8-10.2); CARBON DIOXIDE LEVEL 24 MEQ/L (21-32); CHLORIDE LEVEL 111 MEQ/L (98-107); CREATININE FOR GFR 0.85 MG/DL (0.55-1.30); GLOMERULAR FILTRATION RATE > 60.0 (>32); GLUCOSE, FASTING 107 MG/DL (70-100); POTASSIUM SERUM 3.8 MEQ/L (3.5-5.1); SODIUM LEVEL 140 MEQ/L (136-145)
[2020-04-09] MEDS: NS 1,000 ML IV SCH ×2 (07:26→18:17)
[2020-04-09 09:00] VITALS: BP 112/58
[2020-04-09] MEDS: ATORVASTATIN 20 MG TAB PO SCH (10:06)
[2020-04-09] MEDS: APIXABAN 5 MG TAB (ELIQUIS) PO SCH ×2 (10:07→20:25)
[2020-04-09] MEDS: ASPIRIN 81 MG ENTERIC TAB PO SCH (10:07)
[2020-04-09] MEDS: METOPROLOL TART 12.5 MG PER 1/2 TAB PO SCH ×2 (10:07→20:26)
[2020-04-09] MEDS: MAGNESIUM OXIDE 400MG TAB (MAG-OX) PO SCH ×4 (10:08→20:25)
[2020-04-09] MEDS: busPIRone 10 MG TAB PO SCH ×2 (10:08→20:25)
[2020-04-09] MEDS: OMEPRAZOLE 20 MG CAP PO SCH (10:09)
[2020-04-09] MEDS: LOSARTAN 25 MG TAB PO SCH (10:10)
--- NOTE | 2020-04-09 11:15 | IPNPDOC ---
Text Note Date of Service The patient was seen on 04/09/20. NOTE Subjective: Patient seen and examined at bedside. No acute overnight events reported. Patient still notes right lower quadrant abdominal pain, however, states it has significantly improved. 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 Today she was due to get chemotherapy. However, she was feeling sick, so came to the emergency room. Patient has been having right lower quadrant abdominal pain for the past 2 weeks. Patient was seen by primary care provider and started on a course of antibiotics which she may have reports that she finished 2 days ago. After finishing the oral antibiotics. Her abdominal pain again worsened 2 days ago associated with vomiting, diarrhea , so she came to the ED today. CT abd and pelvis shows Significant changes involving the right lower quadrant small bowel including distal terminal ileum. There is mucosal thickening and significant pericolonic inflammatory stranding involving distal small bowel through the terminal ileum in the lower pelvis and right lower quadrant with associated small bowel diverticulum (series 501; images 85-125).Findings most compatible with infectious/inflammatory process including possible diverticulitis involving the small bowel. Differential diagnosis cannot exclude malignancy given the patient's history. 2. Hepatic lesions consistent with metastatic disease relatively similar to prior examination. She was admitted for acute diverticulitis/enterocolitis #abd pain/enterocolitis? diverticulitis? - Zosyn day #2 - Pain control with IV morphine - cultures negative to date - gi panel still pending #Lactic acidosis Will continue IVF Continue Zosyn #Recurrent Metastatic colonic cancer with mets to liver. On chemotherapy as per [facility] Follows with Dr. Ross here #Recurrent, severe hypomagnesemia. Due to chemotherapy Will replace IV and by mouth #Paroxysmal A. fib Now in sinus rhythm Continue Eliquis #Systolic CHF from 35% Patient is on IV fluids. We have to be careful about the intake output Continue her losartan and become #Hypothyroid. Continue Synthroid #Coronary artery disease. Continue aspirin, statin and beta rupesh Dispo: discussed at length with her daughter Tuyet [phone] on the telephone, VS,Liangashley, I+O VS, Liangmagnuse, I+O Laboratory Tests 04/09/20 05:11 Vital Signs Date Time Temp Pulse Resp B/P (MAP) Pulse Ox O2 Delivery O2 Flow Rate FiO2 04/09/20 10:10 112/58 04/09/20 10:07 66 04/09/20 09:00 98.1 18 98 Room Air I&O- Last 24 Hours up to 6 AM 04/09/20 06:00 Intake Total 1450 ml Output Total 700 ml Balance 750 ml MITCH RODRIGUEZ MD Apr 09, 2020 11:15
[2020-04-09 22:00] VITALS: BP 111/50
[2020-04-09 23:51] VITALS: BP 116/82
[2020-04-10] MEDS ORDERED: CALCIUM CARBONATE 500 MG CHEW U/D PO ONE
[2020-04-10] MEDS: PIPERACILLIN/TAZOBACTAM SOD 3.375 GM in D5W MINI-BAG PLUS 50 ML IV SCH ×4 (00:10→18:01)
[2020-04-10 00:16] LABS: HEMATOCRIT 35.8 % (36.0-47.0); HEMOGLOBIN 10.8 g/dl (12.0-15.5); MEAN CORPUSCULAR HEMOGLOBIN 26.5 pg (27.0-33.0); MEAN CORPUSCULAR HGB CONC 30.2 g/dl (32.0-36.5); PLATELET COUNT, AUTOMATED 122 10^3/uL (150-450); RED BLOOD COUNT 4.07 10^6/uL (4.00-5.40); WHITE BLOOD COUNT 1.9 10^3/uL (4.0-10.0)
[2020-04-10 00:50] LABS: BLOOD UREA NITROGEN 10 MG/DL (7-18); CALCIUM LEVEL 8.5 MG/DL (8.8-10.2); CARBON DIOXIDE LEVEL 26 MEQ/L (21-32); CHLORIDE LEVEL 115 MEQ/L (98-107); CREATININE FOR GFR 0.85 MG/DL (0.55-1.30); GLOMERULAR FILTRATION RATE > 60.0 (>32); GLUCOSE, FASTING 107 MG/DL (70-100); MAGNESIUM LEVEL 2.4 MG/DL (1.8-2.4); POTASSIUM SERUM 3.7 MEQ/L (3.5-5.1); SODIUM LEVEL 144 MEQ/L (136-145); TROPONIN I 0.04 NG/ML (< 0.10)
[2020-04-10] MEDS: LEVOTHYROXINE 88MCG TABLET (0.088 MG) PO SCH (05:24)
[2020-04-10 05:36] LABS: BASO % 1.3 % (0.0-1.0); EOS # 0.1 10^3/uL (0.0-0.5); EOS % 5.9 % (0.0-3.0); HEMATOCRIT 29.4 % (36.0-47.0); LYMPH # 0.3 10^3/uL (1.5-5.0); LYMPH % 17.8 % (24.0-44.0); MEAN CORPUSCULAR HEMOGLOBIN 26.9 pg (27.0-33.0); MEAN CORPUSCULAR HGB CONC 30.6 g/dl (32.0-36.5); MEAN CORPUSCULAR VOLUME 87.8 fl (80.0-96.0); MONO # 0.4 10^3/uL (0.0-0.8); MONO % 26.3 % (2.0-8.0); PLATELET COUNT, AUTOMATED 111 10^3/uL (150-450); RED BLOOD COUNT 3.35 10^6/uL (4.00-5.40); WHITE BLOOD COUNT 1.5 10^3/uL (4.0-10.0)
[2020-04-10 05:46] LABS: NEUTROPHILS # 0.7 10^3/uL (1.5-8.5)
[2020-04-10 05:56] LABS: BLOOD UREA NITROGEN 8 MG/DL (7-18); CALCIUM LEVEL 7.4 MG/DL (8.8-10.2); CARBON DIOXIDE LEVEL 24 MEQ/L (21-32); CHLORIDE LEVEL 118 MEQ/L (98-107); CREATININE FOR GFR 0.64 MG/DL (0.55-1.30); GLOMERULAR FILTRATION RATE > 60.0 (>32); GLUCOSE, FASTING 101 MG/DL (70-100); POTASSIUM SERUM 3.4 MEQ/L (3.5-5.1); SODIUM LEVEL 147 MEQ/L (136-145)
[2020-04-10 06:00] VITALS: BP 122/55
[2020-04-10] MEDS ORDERED: POTASSIUM CHLORIDE 10 MEQ SR TABLET PO ONE (07:15)
[2020-04-10 07:29] LABS: MAGNESIUM LEVEL 2.3 MG/DL (1.8-2.4)
[2020-04-10] MEDS: APIXABAN 5 MG TAB (ELIQUIS) PO SCH ×2 (08:27→21:06)
[2020-04-10] MEDS: MAGNESIUM OXIDE 400MG TAB (MAG-OX) PO SCH ×4 (08:28→21:06)
[2020-04-10] MEDS: busPIRone 10 MG TAB PO SCH ×2 (08:28→21:05)
[2020-04-10] MEDS: ASPIRIN 81 MG ENTERIC TAB PO SCH (08:28)
[2020-04-10] MEDS: ATORVASTATIN 20 MG TAB PO SCH (08:28)
[2020-04-10] MEDS: OMEPRAZOLE 20 MG CAP PO SCH (08:28)
[2020-04-10] MEDS: METOPROLOL TART 12.5 MG PER 1/2 TAB PO SCH ×2 (08:28→21:06)
[2020-04-10] MEDS: LOSARTAN 25 MG TAB PO SCH (08:29)
--- NOTE | 2020-04-10 09:28 | IPNPDOC ---
Text Note Date of Service The patient was seen on 04/10/20. NOTE Subjective: Patient seen and examined at bedside. No acute overnight events reported. Patient still notes right lower quadrant abdominal pain, however, states it continues to improve. 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 Today she was due to get chemotherapy. However, she was feeling sick, so came to the emergency room. Patient has been having right lower quadrant abdominal pain for the past 2 weeks. Patient was seen by primary care provider and started on a course of antibiotics which she may have reports that she finished 2 days ago. After finishing the oral antibiotics. Her abdominal pain again worsened 2 days ago associated with vomiting, diarrhea , so she came to the ED today. CT abd and pelvis shows Significant changes involving the right lower quadrant small bowel including distal terminal ileum. There is mucosal thickening and significant pericolonic inflammatory stranding involving distal small bowel through the terminal ileum in the lower pelvis and right lower quadrant with associated small bowel diverticulum (series 501; images 85-125).Findings most compatible with infectious/inflammatory process including possible diverticulitis involving the small bowel. Differential diagnosis cannot exclude malignancy given the patient's history. 2. Hepatic lesions consistent with metastatic disease relatively similar to prior examination. She was admitted for acute diverticulitis/enterocolitis #abd pain/enterocolitis? diverticulitis? - Zosyn day #3 - Pain control with IV morphine - cultures negative to date - gi panel still pending #Lactic acidosis - Continue Zosyn #Recurrent Metastatic colonic cancer with mets to liver. - receives chemo [id number] on Wednesday - missed this week due to admission - follows with Dr. Ross #Recurrent, severe hypomagnesemia. - Due to chemotherapy - continue to follow and replete as needed #Paroxysmal A. fib - Continue Eliquis #Systolic CHF - EF 35% - Continue losartan #Hypothyroid - Continue Synthroid #Coronary artery disease. - Continue aspirin, statin and beta rupesh Dispo: surgical consult pending; discussed at length with her daughter Tuyet [phone] on the telephone, VS,Fishbone, I+O VS, John, I+O Laboratory Tests 04/10/20 00:08 04/10/20 05:14 Vital Signs Date Time Temp Pulse Resp B/P (MAP) Pulse Ox O2 Delivery O2 Flow Rate FiO2 04/10/20 08:29 125/55 04/10/20 08:28 60 04/10/20 06:00 97.4 18 97 Room Air I&O- Last 24 Hours up to 6 AM 04/10/20 06:00 Intake Total 2080 ml Output Total 300 ml Balance 1780 ml MITCH RODRIGUEZ MD Apr 10, 2020 09:28
[2020-04-10 14:00] VITALS: BP 115/54
--- NOTE | 2020-04-10 14:24 | CR.PDOC ---
General Surgery Consultation Date of Consultation 04/10/20 History and Physical General Surgery Dr Machuca HISTORY OF PRESENT ILLNESS: The patient is an 85-year-old female with history of metastatic recurrent colon cancer with metastases to liver and lungs currently receiving chemotherapy every 2 weeks on Mondays. The patient has previous history of colon cancer in the status post surgical resection with no adjuvant therapy. 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 She was scheduled for chemotherapy on the day of admission, 04/08/20, but instead went to the emergency department because she was feeling ill. The patient was reporting right lower quadrant abdominal pain for the prior 2 weeks. She was tried on a course of oral antibiotics that she finished 2 days prior to admission. Admission was arranged related to abdominal pain and general surgery was consulted for opinion. this afternoon,the patient states she has not had vomiting since admission and is tolerating clear liquids, she states she is anxious to eat some food. She denies nausea. She does state that she has diarrhea however she reports this has been chronic while she has been on chemotherapy. She usually has this daily. Denies rectal bleeding, melena or hematochezia. States she is still having some right-sided abdominal discomfort but it is not as bad as it had been. PMH/PSH: history of colon cancer in the 1980s status post surgical resection with no adjuvant therapy. 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 Follows with Dr Ross for chemotherapy. Chronic diarrhea Pancytopenia CAD/history of UT/stent placement 2013/ischemic cardiomyopathy, EF 35%/ICD 5/14 History of pericardial effusion status post pericardial window History of biliary stones status post ERCP/stent 03/26, 09/25 PAF on Eliquis Hypertension Hypothyroid Gastritis/history of PUD/history of esophageal stricture Vitamin D deficiency Benign positional vertigo/Mnire's Osteoarthritis Diverticulosis Degenerative disc disease Anxiety Hypomagnesemia, chronic. Cholecystectomy Hysterectomy ALLERGIES: Please see below. FAMILY HISTORY: Father lung cancer Mother diabetes HOME MEDICATIONS: Please see below. REVIEW OF SYSTEMS: As noted in HPI otherwise 10 point review systems unremarkable. PHYSICAL EXAMINATION: VITALS SIGNS: Please see below. GENERAL APPEARANCE:Patient seen, laying in bed, awake, alert, and oriented. Comfortable, in no acute distress. SKIN: Warm and moist. HEENT: Normocephalic, atraumatic. Lips and mucosa appear moist. NECK: Supple. No obvious jugular venous distention. LUNGS: Clear to auscultation bilaterally. No wheezing appreciated. HEART: S1S2 Regular rate and rhythm. ABDOMEN: Abdomen is soft, ND, active BS, mild TTP in the RUQ, RLQ. No noticeable rebound or guarding. No grimacing with palpation. No rebound tenderness. No masses appreciated. EXTREMITIES: Extremities well perfused, No edema identified CBC with pancytopenia. LFTs on admission with total bilirubin 1.2, direct bilirubin 0.4, AST 16, ALT 11, alkaline phosphatase 81, total protein 5.2, albumin 2.8, amylase 27, lipase 39 IMPRESSION AND PLAN: The patient is an 85-year-old female with previous history of colon cancer in the 1980s status post surgical resection with no adjuvant therapy. 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 Ross. The patient is reviewed and examined as per Dr. Machuca. The patient's imaging is reviewed as per Dr. Machuca. On CT abdomen/pelvis 04/08/20 there did appear to be mucosal thickening involving the distal small bowel through the terminal ileum in the right lower quadrant. This appears to be most consistent with inflammation likely related to the patient's chemotherapy. The patient does report some improvement in her symptoms and is anxious to advance her diet. At this time, would not recommend any additional surgical intervention. Would recommend to try advancing diet as tolerated. Monitor. Vital Signs Vital Signs Date Time Temp Pulse Resp B/P (MAP) Pulse Ox O2 Delivery O2 Flow Rate FiO2 04/10/20 08:29 125/55 04/10/20 08:28 60 04/10/20 06:00 97.4 18 97 Room Air I&Os I&O- Last 24 Hours up to 6 AM 04/10/20 05:59 Intake Total 2080 ml Output Total 300 ml Balance 1780 ml Laboratory Data Labs 24H Laboratory Tests 2 04/09/20 16:49: Lactic Acid Followup at 4 Hours 2.9*H 04/10/20 00:08: Nucleated Red Blood Cells % (auto) 0.0, Anion Gap 3L, Glomerular Filtration Rate > 60.0, Calcium Level 8.5L, Magnesium Level 2.4, Troponin I 0.04# 04/10/20 05:14: Nucleated Red Blood Cells % (auto) 1.3H, Anion Gap 5L, Glomerular Filtration Rate > 60.0, Calcium Level 7.4L, Magnesium Level 2.3, Troponin I 0.04, Immature Granulocyte % (Auto) 0.7, Neutrophils (%) (Auto) 48.0, Lymphocytes (%) (Auto) 17.8L, Monocytes (%) (Auto) 26.3H, Eosinophils (%) (Auto) 5.9H, Basophils (%) (Auto) 1.3H, Neutrophils # (Auto) 0.7L, Lymphocytes # (Auto) 0.3L, Monocytes # (Auto) 0.4, Eosinophils # (Auto) 0.1, Basophils # (Auto) 0.0 CBC/BMP Laboratory Tests 04/10/20 00:08 04/10/20 05:14 Microbiology Microbiology 04/08/20 Blood Culture - Preliminary, Resulted No growth after 24 hours . All specim... 04/08/20 Respiratory Virus Panel (PCR) (MANNY) - Final, Complete 04/08/20 Blood Culture - Preliminary, Resulted No Growth after 48 hours. All Specime... Home Medications Scheduled Apixaban (Eliquis) 5 Mg Tablet, 5 MG PO BID, (Reported) Aspirin (Aspirin EC) 81 Mg Tab, 81 MG PO DAILY, (Reported) Atorvastatin Calcium (Atorvastatin Calcium) 40 Mg Tab, 40 MG PO DAILY, (Reported) Buspirone HCl (Buspirone HCl) 10 Mg Tab, 10 MG PO BID, (Reported) TAKES 0800/1500 Cholecalciferol (Vitamin D3) (Vitamin D3) 1,000 Unit Tablet, 2,000 UNITS PO DAILY, (Reported) Ferrous Sulfate (Ferrous Sulfate) 325 Mg Tablet, 325 MG PO DAILY, (Reported) Levothyroxine Sodium (Synthroid) 88 Mcg Tablet, 88 MCG PO DAILY, (Reported) Losartan Potassium (Losartan Potassium) 25 Mg Tablet, 25 MG PO DAILY, (Reported) Magnesium Oxide (Magnesium Oxide) 400 Mg Tablet, 400 MG PO QID, (Reported) Metoprolol Succinate (Metoprolol Succinate) 25 Mg Tab.er.24h, 12.5 MG PO BID, (Reported) Omeprazole (Omeprazole) 40 Mg Capsule.dr, 40 MG PO DAILY, (Reported) Potassium Chloride (Potassium Chloride) 20 Meq Tab.er.prt, 20 MEQ PO DAILY Scheduled PRN Lorazepam (Ativan) 0.5 Mg Tablet, 0.5 MG PO Q4HP PRN for ANXIETY/AGITATION, (Reported) Nitroglycerin (Nitrostat) 0.4 Mg Subl, 0.4 MG SL NITRO PRN for CHEST PAIN, (Reported) Ondansetron HCl (Ondansetron HCl) 8 Mg Tablet, 8 MG PO Q12HP PRN for NAUSEA OR VOMITING Prochlorperazine Maleate (Prochlorperazine Maleate) 10 Mg Tablet, 10 MG PO Q6H PRN for NAUSEA OR VOMITING Allergies Coded Allergies: albuterol (Verified Allergy, Severe, Shortness of breath, 05/04/18) ipratropium (Verified Allergy, Severe, Shortness of breath, 05/04/18) Attending Note Attending Note I agree with note by LINCOLN Shane. Patient admitted with RLQ pain. Still present but better. Tolerating clears. CT on admission shows some thickening of mucosa of colon with thickening of distal ileum as well. Exam today reveals mild tenderness RLQ without rebound or mass. Labs reviewed - WBC,RBC, platelets all decreasing - ? chemotherapy effect. Would advance diet as tolerated. No need for any surgical intervention at this time. Radha Luna Apr 10, 2020 13:52 Gino Machuca Apr 10, 2020 22:01
[2020-04-11] MEDS: PIPERACILLIN/TAZOBACTAM SOD 3.375 GM in D5W MINI-BAG PLUS 50 ML IV SCH ×2 (01:34→06:16)
[2020-04-11 02:00] VITALS: BP 129/69
[2020-04-11 06:00] VITALS: BP 133/65
[2020-04-11] MEDS: LEVOTHYROXINE 88MCG TABLET (0.088 MG) PO SCH (06:16)
[2020-04-11 06:38] LABS: BASO % 1.3 % (0.0-1.0); EOS # 0.1 10^3/uL (0.0-0.5); EOS % 8.8 % (0.0-3.0); HEMATOCRIT 31.5 % (36.0-47.0); HEMOGLOBIN 9.6 g/dl (12.0-15.5); LYMPH # 0.3 10^3/uL (1.5-5.0); LYMPH % 20.8 % (24.0-44.0); MEAN CORPUSCULAR HGB CONC 30.5 g/dl (32.0-36.5); MEAN CORPUSCULAR VOLUME 88.5 fl (80.0-96.0); MONO # 0.4 10^3/uL (0.0-0.8); MONO % 26.4 % (2.0-8.0); NEUTROPHILS % 42.1 % (36.0-66.0); PLATELET COUNT, AUTOMATED 131 10^3/uL (150-450); RED BLOOD COUNT 3.56 10^6/uL (4.00-5.40); WHITE BLOOD COUNT 1.6 10^3/uL (4.0-10.0)
[2020-04-11 06:56] LABS: BLOOD UREA NITROGEN 4 MG/DL (7-18); CALCIUM LEVEL 7.9 MG/DL (8.8-10.2); CARBON DIOXIDE LEVEL 26 MEQ/L (21-32); CHLORIDE LEVEL 115 MEQ/L (98-107); CREATININE FOR GFR 0.67 MG/DL (0.55-1.30); GLOMERULAR FILTRATION RATE > 60.0 (>32); GLUCOSE, FASTING 94 MG/DL (70-100); POTASSIUM SERUM 3.8 MEQ/L (3.5-5.1); SODIUM LEVEL 144 MEQ/L (136-145)
[2020-04-11 06:59] LABS: NEUTROPHILS # 0.7 10^3/uL (1.5-8.5)
[2020-04-11] MEDS: busPIRone 10 MG TAB PO SCH (08:27)
[2020-04-11] MEDS: LOSARTAN 25 MG TAB PO SCH (08:27)
[2020-04-11] MEDS: APIXABAN 5 MG TAB (ELIQUIS) PO SCH (08:27)
[2020-04-11] MEDS: ASPIRIN 81 MG ENTERIC TAB PO SCH (08:28)
[2020-04-11] MEDS: MAGNESIUM OXIDE 400MG TAB (MAG-OX) PO SCH (08:28)
[2020-04-11 08:29] VITALS: BP 133/65
[2020-04-11] MEDS: ATORVASTATIN 20 MG TAB PO SCH (08:29)
[2020-04-11] MEDS: METOPROLOL TART 12.5 MG PER 1/2 TAB PO SCH (08:29)
[2020-04-11] MEDS: OMEPRAZOLE 20 MG CAP PO SCH (08:30)
--- NOTE | 2020-04-11 08:51 | IPNPDOC ---
Text Note Date of Service The patient was seen on 04/11/20. NOTE General Surgery Dr Machuca HISTORY OF PRESENT ILLNESS: The patient is an 85-year-old female with history of metastatic recurrent colon cancer with metastases to liver and lungs currently receiving chemotherapy every 2 weeks on Mondays. The patient has previous history of colon cancer in the 1980s status post surgical resection with no adjuvant therapy. 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 She was scheduled for chemotherapy on the day of admission, 04/08/20, but instead went to the emergency department because she was feeling ill. The patient was reporting right lower quadrant abdominal pain for the prior 2 weeks. She was tried on a course of oral antibiotics that she finished 2 days prior to admission. Admission was arranged related to abdominal pain and general surgery was consulted for opinion. This morning, the patient states she is feeling better. She states she ate yesterday and her abdominal pain seemed to improve. She denies any nausea or vomiting. Reports BM 2 yesterday, diarrhea which is her baseline. PHYSICAL EXAMINATION: Afebrile,VSS GENERAL APPEARANCE:Patient seen, laying in bed, awake, alert, and oriented. Co mfortable, in no acute distress. SKIN: Warm and moist. HEENT: Normocephalic, atraumatic. Lips and mucosa appear moist. NECK: Supple. LUNGS: Clear to auscultation bilaterally. No wheezing appreciated. HEART: S1S2 Regular rate and rhythm. ABDOMEN: Abdomen is soft, ND, active BS, mild TTP in the RLQ. No noticeable rebound or guarding. No grimacing with palpation. No rebound tenderness. No masses appreciated. EXTREMITIES: Extremities well perfused, No edema identified CBC with pancytopenia. LFTs on admission with total bilirubin 1.2, direct bilirubin 0.4, AST 16, ALT 11, alkaline phosphatase 81, total protein 5.2, albumin 2.8, amylase 27, lipase 39 IMPRESSION AND PLAN: The patient is an 85-year-old female with previous history of colon cancer in the 1980s status post surgical resection with no adjuvant therapy. 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 Ross. Fortunately, the patient states her abdominal pain is improved today and she is tolerating regular diet which she started last night at dinner. No need for any surgical intervention at this time. VS,Fishbone, I+O VS, Fishbone, I+O Laboratory Tests 04/11/20 06:02 Vital Signs Date Time Temp Pulse Resp B/P (MAP) Pulse Ox O2 Delivery O2 Flow Rate FiO2 04/11/20 08:29 61 133/65 04/11/20 06:00 97.5 17 100 04/11/20 02:00 Room Air I&O- Last 24 Hours up to 6 AM 04/11/20 06:00 Intake Total 2710 ml Output Total 400 ml Balance 2310 ml Attending Note Attending Note I agree with note entered by LINCOLN Shane. Patient doing well and tolerating regular diet. She may be discharged when felt to be medically stable. Radha Luna Apr 11, 2020 08:51 Gino Machuca Apr 12, 2020 09:49
[2020-04-11] MEDS ORDERED: AUGM875T28 PO (09:09)
--- NOTE | 2020-04-12 07:09 | DS.PDOC ---
Discharge Summary General Date of Admission Apr 08, 2020 at 14:27 Date of Discharge 04/11/20 Discharge Summary PROCEDURES PERFORMED DURING STAY: [None]. DISCHARGE DIAGNOSES: #abd pain/enterocolitis? diverticulitis? #Lactic acidosis #Recurrent Metastatic colonic cancer with mets to liver. #Recurrent hypomagnesemia. #Paroxysmal A. fib #Systolic CHF - EF 35% #Hypothyroid #Coronary artery disease. COMPLICATIONS/CHIEF COMPLAINT: Enterocolitis,Metastatic Colon Cancer To Liver. 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 Today she was due to get chemotherapy. However, she was feeling sick, so came to the emergency room. Patient has been having right lower quadrant abdominal pain for the past 2 weeks. Patient was seen by primary care provider and started on a course of antibiotics which she may have reports that she finished 2 days ago. After finishing the oral antibiotics. Her abdominal pain again worsened 2 days ago. The pain is located in the right lower quadrant, constant in nature, sharp aching, rates the pain about 6 /10 without any radiation. She also had 2 episodes of vomiting last night. Also has been having some chronic diarrhea going on for several days. It is watery in nature without any blood in it. Occurs about 3-4 times per day. She also complained of shortness of breath, partial, so she had a CT angiogram of the chest which was negative for PE. Showed a small pleural effusion and a small pericardial effusion CT abd and pelvis shows Significant changes involving the right lower quadrant small bowel including distal terminal ileum. There is mucosal thickening and significant pericolonic inflammatory stranding involving distal small bowel through the terminal ileum in the lower pelvis and right lower quadrant with associated small bowel diverticulum (series 501; images 85-125).Findings most compatible with infectious/inflammatory process including possible diverticulitis involving the small bowel. Differential diagnosis cannot exclude malignancy given the patient's history. 2. Hepatic lesions consistent with metastatic disease relatively similar to prior examination. She was admitted for acute diverticulitis/enterocolitis HOSPITAL COURSE: #abd pain/enterocolitis? diverticulitis? - received 4 days of zosyn - significantly improved - seen in c/s by surgery - recs for o/p follow up - discharged with Augmentin #Lactic acidosis - resolved #Recurrent Metastatic colonic cancer with mets to liver. - receives chemo [id number] on Wednesday - missed this week due to admission - follows with Dr. Ross - discussed with Dr Ross, follow up on Wednesday04/15/20 #Recurrent, severe hypomagnesemia. - Due to chemotherapy #Paroxysmal A. fib - Continue Eliquis #Systolic CHF - EF 35% - Continue losartan #Hypothyroid - Continue Synthroid #Coronary artery disease. - Continue aspirin, statin and beta rupesh DISCHARGE MEDICATIONS: Please see below. ALLERGIES: Please see below. PHYSICAL EXAMINATION ON DISCHARGE: VITAL SIGNS: Please see below. General: NAD, lying comfortably in bed, elderly HEENT: NC/AT, EOMI Lungs: CTA B/L Heart: +S1S2, RRR Abd: soft, LLQ minimal tenderness, +BS Ext: no edema LABORATORY DATA: Please see below. ACTIVITY: [As tolerated]. DISPOSITION: Home, Self-Care. DISCHARGE INSTRUCTIONS: 1. Follow up with PCP in 3-5 days 2. follow up oncology as scheduled DISCHARGE CONDITION: [Stable]. TIME SPENT ON DISCHARGE: 35 minutes. Vital Signs/I&Os Vital Signs Date Time Temp Pulse Resp B/P (MAP) Pulse Ox O2 Delivery O2 Flow Rate FiO2 04/11/20 08:29 61 133/65 04/11/20 06:00 97.5 17 100 04/11/20 02:00 Room Air I&O- Last 24 Hours up to 6 AM 04/12/20 06:00 Intake Total 300 ml Output Total 0 ml Balance 300 ml Microbiology Microbiology 04/08/20 Blood Culture - Preliminary, Resulted No Growth after 72 hours. All specime... 04/08/20 Respiratory Virus Panel (PCR) (MANNY) - Final, Complete 04/08/20 Blood Culture - Preliminary, Resulted No Growth after 72 hours. All specime... Discharge Medications Scheduled Amoxicillin/Potassium Clav (Augmentin 875-125 Tablet) 1 Each Tablet, 1 TAB PO BID Apixaban (Eliquis) 5 Mg Tablet, 5 MG PO BID, (Reported) Aspirin (Aspirin EC) 81 Mg Tab, 81 MG PO DAILY, (Reported) Atorvastatin Calcium (Atorvastatin Calcium) 40 Mg Tab, 40 MG PO DAILY, (Reported) Buspirone HCl (Buspirone HCl) 10 Mg Tab, 10 MG PO BID, (Reported) TAKES 0800/1500 Cholecalciferol (Vitamin D3) (Vitamin D3) 1,000 Unit Tablet, 2,000 UNITS PO DAILY, (Reported) Ferrous Sulfate (Ferrous Sulfate) 325 Mg Tablet, 325 MG PO DAILY, (Reported) Levothyroxine Sodium (Synthroid) 88 Mcg Tablet, 88 MCG PO DAILY, (Reported) Losartan Potassium (Losartan Potassium) 25 Mg Tablet, 25 MG PO DAILY, (Reported) Magnesium Oxide (Magnesium Oxide) 400 Mg Tablet, 400 MG PO QID, (Reported) Metoprolol Succinate (Metoprolol Succinate) 25 Mg Tab.er.24h, 12.5 MG PO BID, (Reported) Omeprazole (Omeprazole) 40 Mg Capsule.dr, 40 MG PO DAILY, (Reported) Potassium Chloride (Potassium Chloride) 20 Meq Tab.er.prt, 20 MEQ PO DAILY Scheduled PRN Lorazepam (Ativan) 0.5 Mg Tablet, 0.5 MG PO Q4HP PRN for ANXIETY/AGITATION, (Reported) Nitroglycerin (Nitrostat) 0.4 Mg Subl, 0.4 MG SL NITRO PRN for CHEST PAIN, (Reported) Ondansetron HCl (Ondansetron HCl) 8 Mg Tablet, 8 MG PO Q12HP PRN for NAUSEA OR VOMITING Prochlorperazine Maleate (Prochlorperazine Maleate) 10 Mg Tablet, 10 MG PO Q6H PRN for NAUSEA OR VOMITING Allergies Coded Allergies: albuterol (Verified Allergy, Severe, Shortness of breath, 05/04/18) ipratropium (Verified Allergy, Severe, Shortness of breath, 05/04/18) MITCH RODRIGUEZ MD Apr 12, 2020 07:09
--- NOTE | 2020-04-15 07:44 | ECGEPIP ---
[facility] Test Date: 2020-04-10 Pat Name: NICA ARAUJO Department: Room: [place] [address] Gender: Female Search Planner: MADELINE : [id number] Requested By: MITCH Bartholomew Order Number: [id number] Reading MD: Waleska Samayoa Measurements Intervals [place] Rate: 113 P: MD: QRS: -36 QRSD: 70 T: -21 QT: 360 QTc: 493 Interpretive Statements Undetermined rhythm PROBABLE A FIB NEW RVR Low voltage QRS PRECORDIAL LEADS Inferior infarct , age undetermined Cannot rule out Anterior infarct , age undetermined RRHYTHM CHANGE C/W 04/08/20 AND QTC PROLONGED Electronically Signed on 04-15-2020 7:44:36 EST by Waleska Samayoa
== END 2020-04-11 10:53 | disposition home or self-care (01) | DRG 392 ==
LOC: M ED 08:53 → M ED INP 14:27 → M MS5PR 16:45
PROVIDERS: ADMIT Internal Medicine Nephrology; ATTEND Internal Medicine
DX: K52.9 Noninfective gastroenteritis and colitis, unspecified (principal); C18.9 Malignant neoplasm of colon, unspecified; C78.7 Secondary malignant neoplasm of liver and intrahepatic bile duct; C78.01 Secondary malignant neoplasm of right lung; C78.02 Secondary malignant neoplasm of left lung; E87.2 Acidosis; I50.22 Chronic systolic (congestive) heart failure; D61.818 Other pancytopenia; I25.5 Ischemic cardiomyopathy; E83.42 Hypomagnesemia; I48.0 Paroxysmal atrial fibrillation; I25.10 Atherosclerotic heart disease of native coronary artery without angina pectoris; Z95.5 Presence of coronary angioplasty implant and graft; I25.2 Old myocardial infarction; E03.9 Hypothyroidism, unspecified; I11.0 Hypertensive heart disease with heart failure; E55.9 Vitamin D deficiency, unspecified; F41.9 Anxiety disorder, unspecified; Z90.49 Acquired absence of other specified parts of digestive tract; Z79.01 Long term (current) use of anticoagulants; Z79.82 Long term (current) use of aspirin; Z79.899 Other long term (current) drug therapy; Z88.8 Allergy status to other drugs, medicaments and biological substances

== ENCOUNTER 2020-05-10 17:20 | Inpatient (IN) | payer MEDICARE ==
[~2020-05-10] VITALS: Ht 157.5 cm; Wt 70.5 kg
[~2020-05-10 17:20] MED LIST changes: +AUGM875T28 PO
[2020-05-10] MEDS ORDERED: NS 1,000 ML IV SCH (17:38)
[2020-05-10] MEDS ORDERED: MORPHINE 4 MG/ML 1ML VIAL/SYRINGE (J2270) IV ONE ×2 (17:40→20:30)
[2020-05-10] MEDS ORDERED: ONDANSETRON 4MG/2ML VIAL IV ONE (17:40)
[2020-05-10 19:02] LABS: BASO % 0.5 % (0.0-1.0); EOS # 0.1 10^3/uL (0.0-0.5); HEMOGLOBIN 10.8 g/dl (12.0-15.5); LYMPH # 0.4 10^3/uL (1.5-5.0); LYMPH % 10.9 % (24.0-44.0); MEAN CORPUSCULAR HEMOGLOBIN 27.3 pg (27.0-33.0); MEAN CORPUSCULAR VOLUME 91.1 fl (80.0-96.0); MONO # 0.1 10^3/uL (0.0-0.8); MONO % 3.3 % (2.0-8.0); NEUTROPHILS # 3.2 10^3/uL (1.5-8.5); PLATELET COUNT, AUTOMATED 149 10^3/uL (150-450); RED BLOOD COUNT 3.95 10^6/uL (4.00-5.40)
[2020-05-10 19:33] LABS: ALBUMIN 2.8 GM/DL (3.2-5.2); ALT/SGPT 8 U/L (12-78); BILIRUBIN,DIRECT 0.2 MG/DL (0.0-0.2); BILIRUBIN,TOTAL 0.6 MG/DL (0.2-1.0); BLOOD UREA NITROGEN 13 MG/DL (7-18); CALCIUM LEVEL 8.2 MG/DL (8.8-10.2); CARBON DIOXIDE LEVEL 28 MEQ/L (21-32); CHLORIDE LEVEL 112 MEQ/L (98-107); CREATININE FOR GFR 0.65 MG/DL (0.55-1.30); GLOMERULAR FILTRATION RATE > 60.0 (>32); GLUCOSE, FASTING 142 MG/DL (70-100); LIPASE 108 U/L (73-393); POTASSIUM SERUM 4.5 MEQ/L (3.5-5.1); SODIUM LEVEL 144 MEQ/L (136-145); TOTAL PROTEIN 5.2 GM/DL (6.4-8.2)
[2020-05-10] MEDS ORDERED: ISOVUE-370 76% 100ML VIAL As Ordered ONE ×2 (19:43→20:59)
[2020-05-10] MEDS: GASTROGRAFIN SOLUTION 30ML PO SCH ×2 (20:28→20:32)
--- NOTE | 2020-05-10 21:55 | REPVR ---
PROCEDURE INFORMATION: Exam: CT Abdomen And Pelvis With Contrast Exam date and time: 05/10/2020 9:31 PM Age: 85 years old Clinical indication: Abdominal pain; Localized; Lower; Additional info: Lower abd pain TECHNIQUE: Imaging protocol: Computed tomography of the abdomen and pelvis with contrast. Radiation optimization: All CT scans at this facility use at least one of these dose optimization techniques: automated exposure control; mA and/or kV adjustment per patient size (includes targeted exams where dose is matched to clinical indication); or iterative reconstruction. Contrast material: ISOVUE 370; Contrast volume: 100 ml; Contrast route: INTRAVENOUS (IV); COMPARISON: CT ABD PELVIS WITH CONTRAST 04/08/2020 11:44 AM FINDINGS: Lungs: Bibasilar atelectasis. Pleural spaces: Bilateral pleural effusions, right greater than left. Mediastinal space: A moderate hiatal hernia is present. Liver: Multiple vaguely rim enhancing partially calcified hepatic hypodensities demonstrated in the posterior right lobe of the liver. Different appearance likely related to comparison of venous phase imaging with arterial phase imaging used previously. Gallbladder and bile ducts: Pneumobilia demonstrated within indwelling biliary stent again redemonstrated. Distal portion of the stent is opacified. Pancreas: There is diffuse pancreatic atrophy. Spleen: Normal. No splenomegaly. Adrenal glands: Normal. No mass. Kidneys and ureters: Bilateral simple renal cysts measuring up to 2.5 cm in the right kidney. Stomach and bowel: Multiple dilated loops of small bowel associated with inflammatory changes in fluid in the mesentery. Several small bowel loops demonstrate fecalization consistent with stasis. There is a transition to normal caliber ileum in the right lower quadrant. Differential diagnosis remains unchanged including inflammatory/infectious processes such is inflammatory bowel disease, bowel infection including small bowel diverticulitis. Malignancy not excluded. Distal colonic anastomosis appears unremarkable. Appendix: No evidence of appendicitis. Intraperitoneal space: Unremarkable. No free air. No significant fluid collection. Vasculature: See "Gallbladder and bile ducts" finding. Lymph nodes: Unremarkable. No enlarged lymph nodes. Urinary bladder: Unremarkable as visualized. Reproductive: There has been a hysterectomy. Bones/joints: Moderate central spinal stenosis L1-L2, severe central spinal stenosis L2-L3, L3-L4 and L4-L5. Moderate central spinal stenosis L5-S1. Soft tissues: Unremarkable. Other findings: Osteoporosis. IMPRESSION: 1. Multiple vaguely rim enhancing partially calcified hepatic hypodensities demonstrated in the posterior right lobe of the liver. Findings consistent with metastatic disease. 2. Pneumobilia demonstrated within indwelling biliary stent again redemonstrated. Distal portion of the stent is opacified. 3. A moderate hiatal hernia is present. 4. There is diffuse pancreatic atrophy. 5. Bilateral simple renal cysts measuring up to 2.5 cm in the right kidney. 6. Multiple dilated loops of small bowel associated with inflammatory changes in fluid in the mesentery. Several small bowel loops demonstrate fecalization consistent with stasis. There is a transition to normal caliber ileum in the right lower quadrant. Differential diagnosis remains unchanged including inflammatory/infectious processes such is inflammatory bowel disease, bowel infection including small bowel diverticulitis. Malignancy not excluded. 7. There has been a hysterectomy. COMMENTS: Consistent with the [employer]'s Incidental Findings Committee white paper (J Am Mariam Radiol 2018): Any incidental renal lesion less than 1 cm or classified as too small to characterize, or any incidental cystic renal lesion characterized as simple-appearing, is likely benign. No follow-up imaging is recommended for these lesions per consensus recommendations based on imaging criteria. Electronically signed by: Macho Beck On 05/10/2020 21:55:16 PM
[2020-05-10] MEDS ORDERED: metroNIDAZOLE 500 MG in IV 1 EA IV ONE (22:25)
[2020-05-10] MEDS ORDERED: CIPROFLOXACIN 400 MG in IV 1 EA IV ONE (22:25)
[2020-05-10] MEDS ORDERED: METO1TAB7 PO (22:35)
[2020-05-10] MEDS ORDERED: AMOX875T2 PO (22:38)
[2020-05-10] MEDS ORDERED: methylPREDNISolone 125MG 2ML VIAL IV ONE (23:30)
[2020-05-10 23:32] LABS: RSV AMPLIFICATION NEGATIVE (NEGATIVE)
[2020-05-10] MEDS ORDERED: LORazepam 0.5 MG TAB PO PRN (23:40)
[2020-05-10] MEDS ORDERED: ONDANSETRON 4 MG TAB PO PRN (23:40)
[2020-05-10] MEDS ORDERED: ACETAMINOPHEN TAB 650MG DOSE (2X325MG) PO PRN (23:45)
[2020-05-10] MEDS ORDERED: MORPHINE 2 MG/ML 1ML VIAL (J2270) IV PRN (23:45)
[2020-05-11] VITALS (11 sets, daily range): BP systolic 109–147; BP diastolic 53–102
[2020-05-11] MEDS ORDERED: PROCHLORPERAZINE 5 MG TAB (S0183) PO PRN
[2020-05-11] MEDS ORDERED: CIPROFLOXACIN 400 MG in IV 1 EA IV SCH (00:05)
--- NOTE | 2020-05-11 00:13 | HPEPDOC ---
General Date of Admission 05/10/2020 Date of Service: May 10, 2020 Attending Physician: SHELLIE CHURCHILL MD Chief Complaint The patient is a 85-year-old female admitted with a reason for visit of Abd Pain. 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 ER with cc of lower abd pain x1 day. Pt states that this afternoon, she had intermittent sharp lower abdominal pain more pronounced on the Lower left quadrant. The pain was at first intermittent but then progressively got worse to a consistent sharp pain. She states that she was nauseated from the pain but denies vomiting. She has chronic diarrhea 2/2 to chemo which she takes imodium for. Her last chemo was this past Wednesday. She denies changes in her stool caliber or rectal bleeding, melena or hematochezia. Denies any recent travels or sick contacts. Denies CP, fever, chills unintentional weight loss. In the ER, she received morphine for pain control, and IV NS bolus for fluids and given 1 x dose of abx. Of note, pt has a previous history of colon cancer in the 1980s status post surgical resection with no adjuvant therapy. 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 She was recently discharged from [facility] for enteroclitis and was treated with IV abx and general surgerY (Dr. valera) was consulted, who reviewed patient's imaging (CT abd/pelvis) at the time which showed mucosal thickening involving the distal small bowel through the terminal ileum in the right lower quadrant. Per gen surgery, this appears to be most consistent with inflammation likely related to the patient's chemotherapy and Dr. Clarke did not recommend any additional surgical intervention. PMHx/PSH: Hx of colon cancer in the 1980s status post surgical resection with no adjuvant therapy. 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 Follows with Dr Ross for chemotherapy. Chronic diarrhea Pancytopenia CAD/history of RI/stent placement 2013/ischemic cardiomyopathy, EF 35%/ICD 06/21 History of pericardial effusion status post pericardial window History of biliary stones status post ERCP/stent 03/26, 09/25 PAF on Eliquis Hypertension Hypothyroid Gastritis/history of PUD/history of esophageal stricture Vitamin D deficiency Benign positional vertigo/Mnire's Osteoarthritis Diverticulosis Degenerative disc disease Anxiety Hypomagnesemia, chronic. Cholecystectomy Hysterectomy ALLERGIES: Please see below. FAMILY HISTORY: Father lung cancer Mother diabetes HOME MEDICATIONS: Please see below. REVIEW OF SYSTEMS: As noted in HPI otherwise 10 point review systems unremarkable. PHYSICAL EXAMINATION: VITALS SIGNS: Please see below. GENERAL APPEARANCE:Patient seen, laying in bed, awake, alert, and oriented. Comfortable, NAD SKIN: Warm and moist. HEENT: Normocephalic, atraumatic. Lips and mucosa appear moist. NECK: Supple. No obvious jugular venous distention. LUNGS: mild wheezing appreciated, no rhonci or rales HEART: irregularly irregular ryhthm rate controlled (60), no m/g/r ABDOMEN: Abdomen is soft, ND, active BS, Lower left quadrant pain with mild guarding on palpation EXTREMITIES: 2+ pitting edema, no cyanosis, clubbing appreciated. Foot drop on the L IMAGING: CT abd/pelvis w IV and PO ctx: Impression: 1. Multiple vaguely rim enhancing partially calcified hepatic hypod ensities demonstrated in the posterior right lobe of the liver. Findings consistent with metastatic disease. 2. Pneumobilia demonstrated within indwelling biliary stent again redemonstrated. Distal portion of the stent is opacified. 3. A moderate hiatal hernia is present. 4. There is diffuse pancreatic atrophy. 5. Bilateral simple renal cysts measuring up to 2.5 cm in the right kidney. 6. Multiple dilated loops of small bowel associated with inflammatory changes in fluid in the mesentery. Several small bowel loops demonstrate fecalization consistent with stasis. There is a transition to normal caliber ileum in the right lower quadrant. Differential diagnosis remains unchanged including inflammatory/infectious processes such is inflammatory bowel disease, bowel infection including small bowel diverticulitis. Malignancy not excluded. 7. There has been a hysterectomy. ASSESSMENT AND PLAN: #Enterocolitis vs diverticulitis vs inflammatory bowel changes 2/2 to chemotherapy - will start on IVF for maintenance @60cc/h - will start on IV cipro /flagyl - NPO - tylenol and morphine PRN for pain -am team consider consulting gen surgery/GI as needed - stool occult blood ordered - PT.OT eval and treat #HFrEF - does not seem to be in decompensated state - Will order for repeat ECHO - Received 1 L IV bolus in ER for diverticulitis - Will give maintenance fluids gently @60cc/h- am team to assess fluid status and D/C fluids if needed - O2 titrate to >92% -strict Ins and outs -daily weigh ins #Chronic diarrhea - No changes in bowel habitus deviated from baseline - Will c/w home meds - Will allow am team to decide if needed for GI panel workup #Thrombocytopenia - may be 2/2 to chemo - will continue to monitor. no signs of active bleeding or petechia #Anemia - likely 2/2 to chronic disease - will order B12 folate, iron studies #Asymptomatic UTI - urine cx pending #hypothyroidism - c/w home meds # Anxiety -c/w home meds #PAF - c/w eliquis #HTN -c/w home meds #HLD -c/w home meds DVt ppx: Eliquis Code status: Full Home Medications Scheduled Amoxicillin/Potassium Clav (Amox-Clav 875-125 mg Tablet) 1 Each Tablet, 1 TAB PO BID, (Reported) pt has on hand for flares of diverticulitis Apixaban (Eliquis) 5 Mg Tablet, 5 MG PO BID, (Reported) Aspirin (Aspirin EC) 81 Mg Tab, 81 MG PO DAILY, (Reported) Atorvastatin Calcium (Atorvastatin Calcium) 40 Mg Tab, 40 MG PO DAILY, (Reported) Buspirone HCl (Buspirone HCl) 10 Mg Tab, 10 MG PO BID, (Reported) TAKES 0800/1500 Cholecalciferol (Vitamin D3) (Vitamin D3) 1,000 Unit Tablet, 2,000 UNITS PO DAILY, (Reported) Ferrous Sulfate (Ferrous Sulfate) 325 Mg Tablet, 325 MG PO DAILY, (Reported) Levothyroxine Sodium (Synthroid) 88 Mcg Tablet, 88 MCG PO DAILY, (Reported) Losartan Potassium (Losartan Potassium) 25 Mg Tablet, 25 MG PO DAILY, (Reported) Magnesium Oxide (Magnesium Oxide) 400 Mg Tablet, 400 MG PO QID, (Reported) Metoprolol Succinate (Metoprolol Succinate) 50 Mg Tab.er.24h, 50 MG PO DAILY, (Reported) Omeprazole (Omeprazole) 40 Mg Capsule.dr, 40 MG PO DAILY, (Reported) Scheduled PRN Lorazepam (Ativan) 0.5 Mg Tablet, 0.5 MG PO Q4HP PRN for ANXIETY/AGITATION, (Reported) Nitroglycerin (Nitrostat) 0.4 Mg Subl, 0.4 MG SL NITRO PRN for CHEST PAIN, (Reported) Ondansetron HCl (Ondansetron HCl) 8 Mg Tablet, 8 MG PO Q12HP PRN for NAUSEA OR VOMITING Prochlorperazine Maleate (Prochlorperazine Maleate) 10 Mg Tablet, 10 MG PO Q6H PRN for NAUSEA OR VOMITING Allergies Coded Allergies: albuterol (Verified Allergy, Severe, Shortness of breath, 05/04/18) ipratropium (Verified Allergy, Severe, Shortness of breath, 05/04/18) A-FIB/CHADSVASC A-FIB History Current/History of A-Fib/PAF?: Yes Current PO Anticoag Therapy: Yes Vital Signs Vital Signs Date Time Temp Pulse Resp B/P (MAP) Pulse Ox O2 Delivery O2 Flow Rate FiO2 05/10/20 21:18 97.1 50 19 110/59 (76) 97 Room Air Laboratory Data Labs 24H Laboratory Tests 2 05/10/20 17:36: Immature Granulocyte % (Auto) 0.3, Neutrophils (%) (Auto) 82.0H, Lymphocytes (%) (Auto) 10.9L, Monocytes (%) (Auto) 3.3, Eosinophils (%) (Auto) 3.0, Basophils (%) (Auto) 0.5, Neutrophils # (Auto) 3.2, Lymphocytes # (Auto) 0.4L, Monocytes # (Auto) 0.1, Eosinophils # (Auto) 0.1, Basophils # (Auto) 0.0, Nucleated Red Blood Cells % (auto) 0.0, Anion Gap 4L, Glomerular Filtration Rate > 60.0, Calcium Level 8.2L, Total Bilirubin 0.6, Direct Bilirubin 0.2, Aspartate Amino Transf (AST/SGOT) 11, Alanine Aminotransferase (ALT/SGPT) 8L, Alkaline Phosphatase 84, Total Protein 5.2L, Albumin 2.8L, Albumin/Globulin Ratio 1.2, Lipase 108 05/10/20 18:04: Urine Color YELLOW, Urine Appearance HAZY, Urine pH 5.0, Urine Specific Hooper 1.027, Urine Protein NEGATIVE, Urine Glucose (UA) NEGATIVE, Urine Ketones NEGATIVE, Urine Blood NEGATIVE, Urine Nitrite NEGATIVE, Urine Bilirubin NEGATIVE, Urine Urobilinogen 0.2, Urine Leukocyte Esterase 1+H, Urine WBC (Auto) 10H, Urine RBC (Auto) 2, Urine Hyaline Casts (Auto) 0, Urine Bacteria (Auto) 1+H, Urine Squamous Epithelial Cells 2, Urine Calcium Oxalate Cryst (Auto) SMALL, Urine Mucus (Auto) SMALL, Urine Sperm (Auto) 05/10/20 22:48: Coronavirus (COVID-19)(PCR) NEGATIVE, Influenza Type A (RT-PCR) NEGATIVE, Influenza Type B (RT-PCR) NEGATIVE, Respiratory Syncytial Virus (PCR) NEGATIVE CBC/BMP Laboratory Tests 05/10/20 17:36 Microbiology Microbiology 05/10/20 Urine Culture, Received Pending Plan / VTE VTE Prophylaxis Ordered?: Yes GME ATTESTATION GME ATTESTATION My faculty preceptor for this patient encounter was physically present during the encounter and was fully available. All aspects of the patient interview, examination, medical decision making process, and medical care plan development were reviewed and approved by the faculty preceptor. The faculty preceptor is aware and concurs with the plan as stated in the body of this note and will attest to such by his/her cosignature. Lanette Rodríguez DO May 11, 2020 00:13
[2020-05-11] MEDS ORDERED: ONDANSETRON 4MG/2ML VIAL IV PRN (00:20)
[2020-05-11] MEDS ORDERED: NS 1,000 ML IV SCH (00:20)
[2020-05-11] MEDS: APIXABAN 5 MG TAB (ELIQUIS) PO SCH ×3 (01:09→22:09)
[2020-05-11] MEDS: busPIRone 10 MG TAB PO SCH ×3 (01:09→22:10)
[2020-05-11] MEDS: LEVOTHYROXINE 88MCG TABLET (0.088 MG) PO SCH (06:14)
[2020-05-11 07:28] LABS: FERRITIN 148 NG/ML (8-252); IRON (FE) 100 UG/DL (50-170); PERCENT SATURATION 35.2 % (13.2-45.0); TOTAL IRON BINDING CAPACITY 284 UG/DL (250-450)
--- NOTE | 2020-05-11 07:40 | IPNPDOC ---
Date Seen The patient was seen on 05/11/20. Progress Note Pls have embossing unit operator call hypertype at [phone] to STAT transcribe Hospitalist progress note dictated job # [id number] VS, I&O, 24H, Fishbone Vital Signs/I&O Vital Signs Date Time Temp Pulse Resp B/P (MAP) Pulse Ox O2 Delivery O2 Flow Rate FiO2 05/11/20 05:53 65 123/63 (83) 05/11/20 05:47 97.4 20 95 Room Air I&O- Last 24 Hours up to 6 AM 05/11/20 06:00 Intake Total 1400 ml Output Total 0 ml Balance 1400 ml Laboratory Data 24H LABS Laboratory Tests 2 05/10/20 17:36: Immature Granulocyte % (Auto) 0.3, Neutrophils (%) (Auto) 82.0H, Lymphocytes (%) (Auto) 10.9L, Monocytes (%) (Auto) 3.3, Eosinophils (%) (Auto) 3.0, Basophils (%) (Auto) 0.5, Neutrophils # (Auto) 3.2, Lymphocytes # (Auto) 0.4L, Monocytes # (Auto) 0.1, Eosinophils # (Auto) 0.1, Basophils # (Auto) 0.0, Reticulocyte # (auto) 29.1, Nucleated Red Blood Cells % (auto) 0.0, Percent Reticulocyte Count 0.7, Reticulocyte Hemoglobin Equivalent 35.2, Anion Gap 4L, Glomerular Filtration Rate > 60.0, Calcium Level 8.2L, Iron Level 100, Total Iron Binding Capacity 284, Transferrin % Saturation 35.2, Ferritin 148, Total Bilirubin 0.6, Direct Bilirubin 0.2, Aspartate Amino Transf (AST/SGOT) 11, Alanine Aminotransferase (ALT/SGPT) 8L, Alkaline Phosphatase 84, Total Protein 5.2L, Albumin 2.8L, Albumin/Globulin Ratio 1.2, Lipase 108 05/10/20 18:04: Urine Color YELLOW, Urine Appearance HAZY, Urine pH 5.0, Urine Specific [place]bs 1.027, Urine Protein NEGATIVE, Urine Glucose (UA) NEGATIVE, Urine Ketones NEGATIVE, Urine Blood NEGATIVE, Urine Nitrite NEGATIVE, Urine Bilirubin NEGATIVE, Urine Urobilinogen 0.2, Urine Leukocyte Esterase 1+H, Urine WBC (Auto) 10H, Urine RBC (Auto) 2, Urine Hyaline Casts (Auto) 0, Urine Bacteria (Auto) 1+H, Urine Squamous Epithelial Cells 2, Urine Calcium Oxalate Cryst (Auto) SMALL, Urine Mucus (Auto) SMALL, Urine Sperm (Auto) 05/10/20 22:48: Coronavirus (COVID-19)(PCR) NEGATIVE, Influenza Type A (RT-PCR) NEGATIVE, Influenza Type B (RT-PCR) NEGATIVE, Respiratory Syncytial Virus (PCR) NEGATIVE CBC/BMP Laboratory Tests 05/10/20 17:36 Microbiology Microbiology 05/11/20 Blood Culture, Received Pending 05/11/20 Blood Culture, Received Pending 05/10/20 Urine Culture, Received Pending KATH VINCENT MD May 11, 2020 07:40
[2020-05-11] MEDS ORDERED: metroNIDAZOLE 500 MG in IV 1 EA IV SCH (08:00)
--- NOTE | 2020-05-11 08:08 | IPN ---
PROGRESS NOTE DATE: 05/11/2020 SUBJECTIVE: The patient denies any nausea, vomiting, fever or chills. Has discomfort in bilateral lower quadrants, described as achy, stabbing at times, rated 4/10 at the bedside. Does not want any pain medications currently. No chest pain, pressure, tightness, shortness of breath, lightheadedness or dizziness. OBJECTIVE: PHYSICAL EXAMINATION: VITAL SIGNS: Temperature 97.4, pulse 52, respiratory rate 20, blood pressure 123/63, oxygen saturation 95% on room air. GENERAL APPEARANCE: The patient is asleep but easily arousable. No respiratory distress, cyanosis, no use of respiratory accessory muscles, no pallor. HEENT: Pupils are round and reactive. The extraocular muscles are intact. Moist mucous membranes. NECK: No JVD, thyromegaly or cervical lymphadenopathy. LUNGS: Diminished with faint wheezing. HEART: S1, S2, irregularly irregular. No murmurs, rubs or gallops. ABDOMEN: Soft, tender in bilateral lower quadrant. No rebound or guarding. No hepatosplenomegaly. EXTREMITIES: 2+ pitting edema. LABORATORY DATA: 05/10 CBC is pending. Metabolic panel liver function tests are all pending. ASSESSMENT: This is an 85-year-old female admitted for acute diverticulitis with history of colon cancer, pancytopenia, coronary artery disease, myocardial infarction and stents, pericardial effusion with window, biliary stones, status post ERCP, paroxysmal atrial fibrillation, on chronic Eliquis, hypertension, hypothyroidism, peptic ulcer disease, gastritis, osteoarthritis, anxiety, degenerative disk disease, prior cholecystectomy and hysterectomy, admitted for acute diverticulitis. IMPRESSION AND PLAN: 1. Enterocolitis versus diverticulitis with inflammatory changes, potentially also secondary to chemotherapy - The patient is currently n.p.o. with IV fluids, IV Cipro, Flagyl. Does not appear to have an acute abdomen. Therefore we will continue to monitor for now and general surgical consult if needed if she decompensates. 2. Congestive heart failure with preserved ejection fraction - currently on IV fluids. Monitor respiratory distress. Strict I.'s and O.'s and daily weight. 3. Chronic diarrhea no change in bowel habits. Check a GI panel. 4. Chemotherapy induced cytopenia with thrombocytopenia and anemia - now requiring RBC transfusion, all related to chemotherapy. 5. Abnormal urinalysis asymptomatic. Currently on antibiotics for enterocolitis. Continue with Cipro for now. 6. Hypothyroidism continued on home medications. 7. Anxiety chronic. 8. Paroxysmal atrial fibrillation on chronic Eliquis, rate controlled. 9. Hypertension with holding parameters to prevent hypotension. 10. Hyperlipidemia chronic. MTDD
[2020-05-11] MEDS: ASPIRIN 81MG ENTERIC TABLET PO SCH (08:57)
[2020-05-11] MEDS: ATORVASTATIN 20 MG TAB PO SCH (08:57)
[2020-05-11] MEDS: MAGNESIUM OXIDE 400MG TAB (MAG-OX) PO SCH ×4 (08:57→22:10)
[2020-05-11] MEDS: LOSARTAN 25 MG TAB PO SCH (08:58)
[2020-05-11] MEDS: METOPROLOL SUCC (TopROL XL) 50MG **XL** TAB PO SCH (08:58)
[2020-05-11] MEDS: OMEPRAZOLE 20 MG CAP PO SCH (08:58)
[2020-05-11] MEDS: FERROUS SULFATE 325MG TAB PO SCH (08:58)
[2020-05-11] MEDS: VITAMIN D 1,000 INTERNATIONAL UNITS TABLET PO SCH (08:58)
[2020-05-11] MEDS: metroNIDAZOLE 500 MG in IV 1 EA IV SCH ×2 (09:13→16:29)
[2020-05-11] MEDS: CIPROFLOXACIN 400 MG in IV 1 EA IV SCH ×2 (11:01→22:10)
[2020-05-12] MEDS: metroNIDAZOLE 500 MG in IV 1 EA IV SCH ×3 (01:56→16:58)
[2020-05-12 02:00] VITALS: BP 121/53
[2020-05-12 05:43] VITALS: BP 124/63
[2020-05-12] MEDS: LEVOTHYROXINE 88MCG TABLET (0.088 MG) PO SCH (06:32)
[2020-05-12 06:57] LABS: HEMATOCRIT 30.6 % (36.0-47.0); HEMOGLOBIN 8.9 g/dl (12.0-15.5); MEAN CORPUSCULAR HEMOGLOBIN 26.3 pg (27.0-33.0); MEAN CORPUSCULAR HGB CONC 29.1 g/dl (32.0-36.5); MEAN CORPUSCULAR VOLUME 90.5 fl (80.0-96.0); PLATELET COUNT, AUTOMATED 136 10^3/uL (150-450); RED BLOOD COUNT 3.38 10^6/uL (4.00-5.40); WHITE BLOOD COUNT 2.9 10^3/uL (4.0-10.0)
[2020-05-12 07:11] LABS: BLOOD UREA NITROGEN 10 MG/DL (7-18); CALCIUM LEVEL 8.4 MG/DL (8.8-10.2); CARBON DIOXIDE LEVEL 27 MEQ/L (21-32); CHLORIDE LEVEL 114 MEQ/L (98-107); CREATININE FOR GFR 0.64 MG/DL (0.55-1.30); GLOMERULAR FILTRATION RATE > 60.0 (>32); GLUCOSE, FASTING 139 MG/DL (70-100); POTASSIUM SERUM 4.1 MEQ/L (3.5-5.1); SODIUM LEVEL 146 MEQ/L (136-145)
[2020-05-12 07:15] LABS: INR 1.63; PROTHROMBIN TIME 19.7 SECONDS (12.5-14.3)
--- NOTE | 2020-05-12 08:25 | IPNPDOC ---
Date Seen The patient was seen on 05/12/20. Progress Note Hospitalist discharge summary dictated job #[id number]. Please have the community support associate call NEHA Correia PE at [phone] if summary is needed urgently for stat job captain VS, I&O, 24H, Fishbone Vital Signs/I&O Vital Signs Date Time Temp Pulse Resp B/P (MAP) Pulse Ox O2 Delivery O2 Flow Rate FiO2 05/12/20 05:43 98.0 57 18 124/63 (83) 97 Room Air I&O- Last 24 Hours up to 6 AM 05/12/20 06:00 Intake Total 1540 ml Output Total 1550 ml Balance -10 ml Laboratory Data 24H LABS Laboratory Tests 2 05/12/20 06:30: Nucleated Red Blood Cells % (auto) 0.0, Prothrombin Time 19.7H, Prothromb Time International Ratio 1.63, Anion Gap 5L, Glomerular Filtration Rate > 60.0, Calcium Level 8.4L CBC/BMP Laboratory Tests 05/12/20 06:30 Microbiology Microbiology 05/12/20 Stool Occult Blood (MANNY) - Final, Complete 05/11/20 Blood Culture - Preliminary, Resulted No growth after 24 hours . All specim... 05/11/20 Blood Culture - Preliminary, Resulted No growth after 24 hours . All specim... 05/10/20 Urine Culture - Final, Complete KATH VINCENT MD May 12, 2020 08:24
[2020-05-12] MEDS: VITAMIN D 1,000 INTERNATIONAL UNITS TABLET PO SCH (08:38)
[2020-05-12] MEDS: METOPROLOL SUCC (TopROL XL) 50MG **XL** TAB PO SCH (08:38)
[2020-05-12] MEDS: ASPIRIN 81MG ENTERIC TABLET PO SCH (08:38)
[2020-05-12] MEDS: MAGNESIUM OXIDE 400MG TAB (MAG-OX) PO SCH ×4 (08:38→21:29)
[2020-05-12] MEDS: busPIRone 10 MG TAB PO SCH ×2 (08:39→21:29)
[2020-05-12] MEDS: FERROUS SULFATE 325MG TAB PO SCH (08:39)
[2020-05-12] MEDS: ATORVASTATIN 20 MG TAB PO SCH (08:39)
[2020-05-12] MEDS: APIXABAN 5 MG TAB (ELIQUIS) PO SCH ×2 (08:39→21:29)
[2020-05-12] MEDS: LOSARTAN 25 MG TAB PO SCH (08:39)
[2020-05-12] MEDS: OMEPRAZOLE 20 MG CAP PO SCH (08:39)
[2020-05-12] MEDS ORDERED: NS 0.45% 1,000 ML IV SCH (09:00)
[2020-05-12] MEDS: CIPROFLOXACIN 400 MG in IV 1 EA IV SCH ×2 (10:51→23:23)
[2020-05-12 14:27] VITALS: BP 109/51
[2020-05-12 20:53] VITALS: BP 109/56
[2020-05-13] MEDS: metroNIDAZOLE 500 MG in IV 1 EA IV SCH ×3 (01:25→15:54)
[2020-05-13 05:30] VITALS: BP 152/90
[2020-05-13] MEDS: NITROGLYCERIN 0.4 MG SUBL TABLET SL PRN ×2 (05:39→05:59)
[2020-05-13] MEDS ORDERED: METOPROLOL 5 MG/5 ML VIAL IV STA ×2 (06:02→06:06)
[2020-05-13 06:23] VITALS: BP 112/58
[2020-05-13 06:28] LABS: HEMATOCRIT 32.5 % (36.0-47.0); HEMOGLOBIN 9.9 g/dl (12.0-15.5); MEAN CORPUSCULAR HEMOGLOBIN 27.5 pg (27.0-33.0); MEAN CORPUSCULAR HGB CONC 30.5 g/dl (32.0-36.5); MEAN CORPUSCULAR VOLUME 90.3 fl (80.0-96.0); PLATELET COUNT, AUTOMATED 164 10^3/uL (150-450); WHITE BLOOD COUNT 3.4 10^3/uL (4.0-10.0)
[2020-05-13 06:38] LABS: INR 1.56
[2020-05-13] MEDS: LEVOTHYROXINE 88MCG TABLET (0.088 MG) PO SCH (06:43)
[2020-05-13 06:52] LABS: BLOOD UREA NITROGEN 9 MG/DL (7-18); CALCIUM LEVEL 7.9 MG/DL (8.8-10.2); CARBON DIOXIDE LEVEL 26 MEQ/L (21-32); CHLORIDE LEVEL 115 MEQ/L (98-107); GLOMERULAR FILTRATION RATE > 60.0 (>32); GLUCOSE, FASTING 127 MG/DL (70-100); POTASSIUM SERUM 3.6 MEQ/L (3.5-5.1); SODIUM LEVEL 146 MEQ/L (136-145); TROPONIN I 0.02 NG/ML (< 0.10)
[2020-05-13 07:49] VITALS: BP 104/58
--- NOTE | 2020-05-13 09:01 | IPNPDOC ---
Date Seen The patient was seen on 05/13/20. Progress Note pls have unit reactor operator call hypertype at [phone] to stat transcibe hospitalist progress note job # [id number] VS, I&O, 24H, Fishbone Vital Signs/I&O Vital Signs Date Time Temp Pulse Resp B/P (MAP) Pulse Ox O2 Delivery O2 Flow Rate FiO2 05/13/20 07:49 98.0 65 18 104/58 (73) 98 Room Air I&O- Last 24 Hours up to 6 AM 05/13/20 06:00 Intake Total 1240 ml Output Total 500 ml Balance 740 ml Laboratory Data 24H LABS Laboratory Tests 2 05/13/20 06:07: Nucleated Red Blood Cells % (auto) 0.0, Prothrombin Time 19.0H, Prothromb Time International Ratio 1.56, Anion Gap 5L, Glomerular Filtration Rate > 60.0, Calcium Level 7.9L, Troponin I 0.02 05/13/20 07:18: Lactic Acid Level 1.8 CBC/BMP Laboratory Tests 05/13/20 06:07 Microbiology Microbiology 05/12/20 Stool Occult Blood (MANNY) - Final, Complete 05/11/20 Blood Culture - Preliminary, Resulted No Growth after 48 hours. All Specime... 05/11/20 Blood Culture - Preliminary, Resulted No Growth after 48 hours. All Specime... 05/10/20 Urine Culture - Final, Complete KATH VINCENT MD May 13, 2020 09:01
[2020-05-13] MEDS: OMEPRAZOLE 20 MG CAP PO SCH (09:05)
[2020-05-13] MEDS: APIXABAN 5 MG TAB (ELIQUIS) PO SCH ×2 (09:05→20:25)
[2020-05-13] MEDS: VITAMIN D 1,000 INTERNATIONAL UNITS TABLET PO SCH (09:05)
[2020-05-13] MEDS: ASPIRIN 81MG ENTERIC TABLET PO SCH (09:05)
[2020-05-13] MEDS: FERROUS SULFATE 325MG TAB PO SCH (09:06)
[2020-05-13] MEDS: MAGNESIUM OXIDE 400MG TAB (MAG-OX) PO SCH ×4 (09:06→20:25)
[2020-05-13] MEDS: ATORVASTATIN 20 MG TAB PO SCH (09:06)
[2020-05-13] MEDS: METOPROLOL SUCC (TopROL XL) 50MG **XL** TAB PO SCH (09:06)
--- NOTE | 2020-05-13 10:32 | IPN ---
PROGRESS NOTE DATE: 05/13/2020 SUBJECTIVE: Patient was emergently transferred to PCU due to afib with RVR, rate of 120-140, given 3 doses of I.V. metoprolol with improvement of heart rate down to 65-70, blood pressure was maintained at 112-152 systolic. Patient complained of epigastric and substernal chest pain radiating up her neck. Troponins were negative overnight and this had resolved this morning. Patient currently has no chest pain, pressure or tightness, shortness of breath, anxious to go home, tolerated her diet yesterday without any nausea, vomiting or abdominal pain. OBJECTIVE: Vital signs: Temperature 98, pulse 65, respiratory rate 18, blood pressure 112/58, 96% on room air. General: Awake, alert, oriented to person, place and time, answering questions appropriately HEENT: Face is symmetric, tongue is midline, moist mucous membranes. Neck: No JVD, no thyromegaly. Lungs: Clear to auscultation, no wheezes, rhonchi or rales. Heart: S1 and S2, irregularly irregular, not tachycardic. Abdomen: Soft, slightly tender bilateral lower quadrants, no guarding or rebound. Extremities: No cyanosis, clubbing or any pitting edema. LABORATORY DATA: White count 3.4, hemoglobin 9.9, hematocrit 32.5, platelet count 164. Sodium 146, potassium 3.6, chloride 115, bicarb 26, BUN 9, creatinine 0.7, glucose 127. ASSESSMENT: This is an 85-year-old, Full Code, admitted on 05/11/2020 due to complaints of abdominal pain found to have diverticulitis complicated by afib requiring PCU transfer last night, requiring I.V. metoprolol. She has a history of colon cancer with chronic pancytopenia most likely due to chemotherapy, CAD and mild pericardial effusion with window, biliary stones, ERCP, paroxysmal atrial fibrillation on chronic Eliquis, hypertension, hypothyroidism, peptic ulcer disease, gastritis, osteoarthritis, anxiety, DJD, prior cholecystectomy, hysterectomy. Active issues are: 1. Enterocolitis versus diverticulitis most likely secondary to chemotherapy: Patient is tolerating a low residue diet, still on I.V. Cipro and Flagyl. No need for a surgical consultation as she is currently clinically improved. 2. Afib with RVR: Patient received I.V. metoprolol yesterday, transferred emergently to the telemetry unit, doing well currently with maintained blood pressure of 110-120s. Patient is currently put back on her metoprolol daily. If blood pressure is low patient may be given I.V. digoxin. If stable may discharge home in the morning. 3. Chemotherapy induced pancytopenia: Patient is not requiring any blood transfusion, stable, no overt GI bleed. 4. Abnormal urinalysis: Asymptomatic, currently on Cipro and Flagyl for colitis. 5. Hypothyroidism: On Synthroid. 6. Anxiety: Chronic. 7. Hypertension: Currently controlled. 8. Hyperlipidemia: Chronic. DISPOSITION: Discharge in the morning if afib is controlled and still tolerating her diet. CODE STATUS: Full Code.
--- NOTE | 2020-05-13 10:47 | ECGEPIP ---
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 Low voltages with slow precordial R wave progression and persistent S waves V5 a and V6; body habitus versus pulmonary disease. Could not rule out prior anterior wall myocardial infarction. Nonspecific ST/T wave abnormalities Increased rate from 04/10/20. Electronically Signed on 05-13-2020 10:47:12 EDT by Long Lara
[2020-05-13 11:40] VITALS: BP 123/56
[2020-05-13] MEDS: busPIRone 10 MG TAB PO SCH ×2 (12:17→20:25)
[2020-05-13] MEDS: CIPROFLOXACIN 400 MG in IV 1 EA IV SCH ×2 (12:17→23:38)
[2020-05-13 12:56] LABS: VITAMIN B12 LEVEL 354 PG/ML (247-911)
[2020-05-13 16:00] VITALS: BP 103/58
[2020-05-13 16:03] LABS: FOLATE > 24.0 NG/ML (>5.4)
[2020-05-13 20:00] VITALS: BP 105/59
[2020-05-14] VITALS: BP 106/57
[2020-05-14] MEDS: metroNIDAZOLE 500 MG in IV 1 EA IV SCH (00:57)
[2020-05-14 04:00] VITALS: BP 119/62
[2020-05-14] MEDS ORDERED: CIPROFLOXACIN 500MG TABLET PO SCH (06:00)
[2020-05-14 06:16] LABS: INR 1.72; PROTHROMBIN TIME 20.5 SECONDS (12.5-14.3)
[2020-05-14] MEDS: LEVOTHYROXINE 88MCG TABLET (0.088 MG) PO SCH (06:23)
--- NOTE | 2020-05-14 07:36 | ECHO ---
DATE OF PROCEDURE: 05/12/2020 Age: 85 Gender: Female Height: 155 cm Weight: 75 kg REFERRING PHYSICIAN: Dr. Jimenez and Dr. Rodríguez. INDICATION: Edema, coronary artery disease. MEASUREMENTS: IVS 1.1 cm LV 5.1 cm LVPW 1.1 cm LA 3.8 cm Aorta 2.9 cm RV 3.0 cm IVC 1.6 cm Mitral E wave velocity 81 cm/s Mitral A wave 64 cm/s E prime septal 7.3 cm/s E prime lateral 11.2 cm/s FINDINGS: This study is of good technical quality. Underlying sinus rhythm. Left ventricle is of normal size. There is an extensive wall motion abnormality involving mid and distal septum, distal anterior wall, and distal inferior wall and apex. 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 Overall LVEF is estimated approximately 35% to 40%. Right ventricle is normal size and systolic function. Both atria appear normal. There is an echo artifact in right-sided heart chambers representing either pacemaker or ICD leads. Aortic valve is mildly sclerotic, but mobility of cusps is preserved. There are mild degenerative abnormalities of the mitral valve with mitral annular calcifications. Tricuspid valve appeared normal. Pulmonic valve also appeared normal. No pericardial effusion is noted. Inferior vena cava is of normal size and appropriately collapses with inspiration indicative of normal central venous pressure. Aortic root, aortic arch, and abdominal aorta all appear normal. Doppler interrogation reveals no aortic stenosis or insufficiency. There is mild mitral insufficiency. Tricuspid valve is functionally competent. Same applies for pulmonic valve. Mitral inflow pattern and tissue Doppler imaging of the mitral annulus revealed probably grade 2 diastolic dysfunction, event though tissue Doppler velocities of the mitral annulus are relatively preserved. CONCLUSIONS: 1. Study is of acceptable technical quality. Normal LV size with extensive wall motion abnormalities noted above and overall EF estimated at 35% to 40%. Likely grade 2 diastolic dysfunction. 2. Aortic sclerosis, but no stenosis or insufficiency. 3. Mild mitral insufficiency. 4. Competent tricuspid valve. 5. Normal central venous pressure and likely normal pulmonary artery pressure. 6. ICD or pacemaker leads noted in right-sided heart chambers. MTDD
[2020-05-14 08:00] VITALS: BP_SYST 123; BP_SYST 124; BP_DIAS 63; BP_DIAS 64
[2020-05-14] MEDS: MAGNESIUM OXIDE 400MG TAB (MAG-OX) PO SCH ×2 (08:51→12:30)
[2020-05-14] MEDS: metroNIDAZOLE (FLAGYL) 500MG TABLET PO SCH ×2 (08:51→15:29)
[2020-05-14] MEDS: APIXABAN 5 MG TAB (ELIQUIS) PO SCH (08:51)
[2020-05-14] MEDS: ASPIRIN 81MG ENTERIC TABLET PO SCH (08:51)
[2020-05-14] MEDS: FERROUS SULFATE 325MG TAB PO SCH (08:52)
[2020-05-14] MEDS: VITAMIN D 1,000 INTERNATIONAL UNITS TABLET PO SCH (08:52)
[2020-05-14] MEDS: ATORVASTATIN 20 MG TAB PO SCH (08:52)
[2020-05-14] MEDS: OMEPRAZOLE 20 MG CAP PO SCH (08:52)
[2020-05-14 08:53] VITALS: BP 124/64
[2020-05-14] MEDS: busPIRone 10 MG TAB PO SCH (08:53)
[2020-05-14] MEDS: METOPROLOL SUCC (TopROL XL) 50MG **XL** TAB PO SCH (08:53)
[2020-05-14 12:00] VITALS: BP_SYST 102; BP_SYST 108; BP_DIAS 58; BP_DIAS 59
[2020-05-14] MEDS ORDERED: CIPR-249 PO (12:28)
[2020-05-14] MEDS ORDERED: FLAG500T PO (12:28)
[2020-05-15] MEDS ORDERED: CIPR500T39 PO (11:56)
[2020-05-15] MEDS ORDERED: METR-265 PO (11:56)
[2020-05-15] MEDS ORDERED: ACET-907 PO (11:56)
[2020-05-15] MEDS ORDERED: LOPE2TAB12 PO (11:56)
--- NOTE | 2020-05-15 15:35 | DS.PDOC ---
Discharge Summary General Date of Admission May 12, 2020 at 08:21 Date of Discharge 05/14/20 Discharge Summary PROCEDURES PERFORMED DURING STAY: ECHO: 1. Study is of acceptable technical quality. Normal LV size with extensive wall motion abnormalities noted above and overall EF estimated at 35% to 40%. Likely grade 2 diastolic dysfunction. 2. Aortic sclerosis, but no stenosis or insufficiency. 3. Mild mitral insufficiency. 4. Competent tricuspid valve. 5. Normal central venous pressure and likely normal pulmonary artery pressure. 6. ICD or pacemaker leads noted in right-sided heart chambers. DISCHARGE DIAGNOSES: Enterocolitis likely chemotherapy related. Small bowel diverticulitis SECONDARY DIAGNOSIS: Recurrent colon cancer with mets to liver and lungs in 2017 on chemotherapy H/o Colon cancer in the status post surgical resection with no adjuvant therapy. 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 Chronic diarrhea from extensive colon resection Pancytopenia due to chemotherapy CAD/history of TN/stent placement 2013/ischemic cardiomyopathy, EF 35%/ICD 06/21 Chronic systolic and diastolic CHF History of pericardial effusion status post pericardial window History of biliary stones status post ERCP/stent 03/26, 09/25 PAF on Eliquis Hypertension Hypothyroid Gastritis/history of PUD/history of esophageal stricture Vitamin D deficiency Benign positional vertigo/Mnire's Osteoarthritis Diverticulosis Degenerative disc disease Anxiety Hypomagnesemia, chronic. 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 HOSPITAL COURSE: This is a 85-year-old female with a PMHx significant for metastatic recurrent colon cancer with metastases to liver and lungs, CAD, TN s/p stent in 2013, H/o Systolic CHF with EF of 35% with AICD placement, PAF on eliquis, HTN, hypothyroidism, hx of diverticulosis, who presented to [facility] ER with sharp crampy lower abd pain x1 day more in the left lower quadrant associated with nausea. She has chronic diarrhea likely from extensive colon resections in the past from recurrent colon cancer for which she takes imodium. She gets chemotherapy every 2 weeks. She had another episode of enterocolitis when she was hospitalized form 04/08/20 to 04/10/20. CT abdomen and pelvis showed Enterocolitis versus small bowel diverticulitis with inflammatory changes, infectious vs secondary to chemotherapy. Patient was treated with bowel rest and cipro and flagyl. She responded well to treatment. Her diet was advanced and she was able to tolerated a low residue diet. She did have a brief period of AFib with RVR during hospitalization but then it spontaneously reverted to sinus rhythm. DISCHARGE MEDICATIONS: Please see below. ALLERGIES: Please see below. PHYSICAL EXAMINATION ON DISCHARGE: VITAL SIGNS: Please see below. General: Awake, alert, oriented to person, place and time, answering questions appropriately HEENT: Face is symmetric, tongue is midline, moist mucous membranes. Neck: No JVD, no thyromegaly. Lungs: No wheezes or ronchi, few scarred bibasillar crackles. Heart: S1 and S2, irregularly irregular, not tachycardic. Abdomen: Soft, slightly tender bilateral lower quadrants, no guarding or rebound. Extremities: No cyanosis, clubbing . There is 1+ pitting edema. LABORATORY DATA: Please see below. IMAGING: CT abdomen and pelvis: IMPRESSION: 1. Multiple vaguely rim enhancing partially calcified hepatic hypodensities demonstrated in the posterior right lobe of the liver. Findings consistent with metastatic disease. 2. Pneumobilia demonstrated within indwelling biliary stent again redemonstrated. Distal portion of the stent is opacified. 3. A moderate hiatal hernia is present. 4. There is diffuse pancreatic atrophy. 5. Bilateral simple renal cysts measuring up to 2.5 cm in the right kidney. 6. Multiple dilated loops of small bowel associated with inflammatory changes in fluid in the mesentery. Several small bowel loops demonstrate fecalization consistent with stasis. There is a transition to normal caliber ileum in the right lower quadrant. Differential diagnosis remains unchanged including inflammatory/infectious processes such is inflammatory bowel disease, bowel infection including small bowel diverticulitis. Malignancy not excluded. 7. There has been a hysterectomy. ACTIVITY: [As tolerated]. DIET: Low residue DISPOSITION: 01 Home, Self-Care. DISCHARGE INSTRUCTIONS: PMD in 2 weeks Follow up with Oncology DISCHARGE CONDITION: [Stable]. TIME SPENT ON DISCHARGE: 40 minutes. Vital Signs/I&Os Vital Signs Date Time Temp Pulse Resp B/P (MAP) Pulse Ox O2 Delivery O2 Flow Rate FiO2 05/14/20 12:00 97.6 83 23 108/59 (75) 98 Room Air I&O- Last 24 Hours up to 6 AM 05/15/20 07:00 Intake Total 600 ml Balance 600 ml Microbiology Microbiology 05/12/20 Stool Occult Blood (MANNY) - Final, Complete 05/11/20 Blood Culture - Preliminary, Resulted No Growth after 72 hours. All specime... 05/11/20 Blood Culture - Preliminary, Resulted No Growth after 72 hours. All specime... 05/10/20 Urine Culture - Final, Complete Discharge Medications Scheduled Apixaban (Eliquis) 5 Mg Tablet, 5 MG PO BID, (Reported) Aspirin (Aspirin EC) 81 Mg Tab, 81 MG PO DAILY, (Reported) Atorvastatin Calcium (Atorvastatin Calcium) 40 Mg Tab, 40 MG PO DAILY, (Reported) Buspirone HCl (Buspirone HCl) 10 Mg Tab, 10 MG PO BID, (Reported) TAKES 0800/1500 Cholecalciferol (Vitamin D3) (Vitamin D3) 1,000 Unit Tablet, 2,000 UNITS PO DAILY, (Reported) Ciprofloxacin HCl (Ciprofloxacin HCl) 500 Mg Tablet, 500 MG PO BID, (Reported) STARTED 05/14/20 FOR 5 DAYS Ferrous Sulfate (Ferrous Sulfate) 325 Mg Tablet, 325 MG PO DAILY, (Reported) Levothyroxine Sodium (Synthroid) 88 Mcg Tablet, 88 MCG PO DAILY, (Reported) Magnesium Oxide (Magnesium Oxide) 400 Mg Tablet, 400 MG PO QID, (Reported) Metoprolol Succinate (Metoprolol Succinate) 50 Mg Tab.er.24h, 50 MG PO DAILY, (Reported) Metronidazole (Metronidazole) 500 Mg Tablet, 500 MG PO TID, (Reported) STARTED 05/14/20 FOR 5 DAYS Omeprazole (Omeprazole) 40 Mg Capsule.dr, 40 MG PO DAILY, (Reported) Scheduled PRN Acetaminophen (Tylenol) 325 Mg Tablet, 650 MG PO QID PRN for PAIN / FEVER, (Reported) Loperamide HCl (Imodium A-D) 2 Mg Tablet, 2 MG PO PRN PRN for DIARRHEA, (Reported) Lorazepam (Ativan) 0.5 Mg Tablet, 0.5 MG PO Q4HP PRN for ANXIETY/AGITATION, (Reported) Nitroglycerin (Nitrostat) 0.4 Mg Subl, 0.4 MG SL NITRO PRN for CHEST PAIN, (Reported) Ondansetron HCl (Ondansetron HCl) 8 Mg Tablet, 8 MG PO Q12HP PRN for NAUSEA OR VOMITING Prochlorperazine Maleate (Prochlorperazine Maleate) 10 Mg Tablet, 10 MG PO Q6H PRN for NAUSEA OR VOMITING Allergies Coded Allergies: albuterol (Verified Allergy, Severe, Shortness of breath, 05/04/18) ipratropium (Verified Allergy, Severe, Shortness of breath, 05/04/18) HAI BAXTER MD May 15, 2020 15:35
== END 2020-05-14 15:35 | disposition home or self-care (01) | DRG 393 ==
LOC: M ED 17:20 → M ED INP 17:21 → UNDOADMOB 05-11 00:10 → ENRESERV 05-11 01:15 → M MS5PR 05-11 02:37 → OBSVTOIN 05-12 08:21 → M PCU 05-13 06:18
PROVIDERS: ADMIT Family Medicine; ATTEND Internal Medicine Nephrology
DX: K52.1 Toxic gastroenteritis and colitis (principal); D61.810 Antineoplastic chemotherapy induced pancytopenia; C78.7 Secondary malignant neoplasm of liver and intrahepatic bile duct; C78.01 Secondary malignant neoplasm of right lung; C78.02 Secondary malignant neoplasm of left lung; I50.32 Chronic diastolic (congestive) heart failure; K57.12 Diverticulitis of small intestine without perforation or abscess without bleeding; I25.10 Atherosclerotic heart disease of native coronary artery without angina pectoris; I25.2 Old myocardial infarction; I48.0 Paroxysmal atrial fibrillation; I10 Essential (primary) hypertension; E03.9 Hypothyroidism, unspecified; Z95.5 Presence of coronary angioplasty implant and graft; Z95.810 Presence of automatic (implantable) cardiac defibrillator; Z90.49 Acquired absence of other specified parts of digestive tract; Z85.038 Personal history of other malignant neoplasm of large intestine; Z92.21 Personal history of antineoplastic chemotherapy; I25.5 Ischemic cardiomyopathy; E78.5 Hyperlipidemia, unspecified; E55.9 Vitamin D deficiency, unspecified; F41.9 Anxiety disorder, unspecified; E83.42 Hypomagnesemia; H81.09 Meniere's disease, unspecified ear; D69.59 Other secondary thrombocytopenia; Z79.01 Long term (current) use of anticoagulants; Z79.899 Other long term (current) drug therapy; Z88.8 Allergy status to other drugs, medicaments and biological substances; Z20.822 Contact with and (suspected) exposure to COVID-19

== ENCOUNTER 2020-05-15 07:52 | Observation (INO) | payer MEDICARE ==
[~2020-05-15] VITALS: Ht 157.5 cm; Wt 73.1 kg
[~2020-05-15 07:52] MED LIST changes: +AMOX875T2 PO; +CIPR-249 PO; +FLAG500T PO; +METO1TAB7 PO
[2020-05-15] MEDS ORDERED: ACETAMINOPHEN TAB 650MG DOSE (2X325MG) PO ONE (08:10)
--- NOTE | 2020-05-15 08:55 | REP ---
INDICATION: ro dvt. COMPARISON: 05/06/2011. TECHNIQUE: Duplex ultrasound of the right lower extremity deep veins. FINDINGS: The deep veins demonstrate normal compression, normal Doppler color flow and normal Doppler waveforms with respiration augmentation at multiple levels from the popliteal vein to the common femoral vein. There is no right lower extremity deep vein thrombus. There is a Booker cyst in the popliteal fossa. There are internal echoes within the Booker's cyst, possibly prior hematomas that have organized.. IMPRESSION: There is no deep vein thrombus the right lower extremity. There is a complex Booker's cyst in the popliteal fossa containing internal echoes, possibly organized hematomas. <Electronically signed by Yared Paul > 05/15/20 0800
--- NOTE | 2020-05-15 09:36 | REP ---
INDICATION: pain and swelling COMPARISON: None. TECHNIQUE: AP, lateral, bilateral oblique views right foot. FINDINGS: Generalized age-related osteopenia and degenerative changes are appreciated throughout the foot. No obvious acute fracture or dislocation identified. No obvious subcutaneous emphysema or foreign body. Lateral view demonstrates small calcaneal heel spur and calcifications at the insertion of the Achilles tendon/calcaneus. IMPRESSION: Generalized age-related osteopenia and degenerative changes.. No acute fracture or dislocation. <Electronically signed by Jethro King > 05/15/20 0991
--- NOTE | 2020-05-15 09:40 | REP ---
INDICATION: pain and swelling COMPARISON: None. TECHNIQUE: AP, lateral, bilateral oblique and sunrise views. FINDINGS: Osteopenia and advanced tricompartmental osteoarthritic degenerative changes are appreciated. Lateral view demonstrates suprapatellar effusion. There is no obvious acute fracture or dislocation. IMPRESSION: Osteopenia and advanced tricompartmental osteoarthritic degenerative changes. Suprapatellar effusion without evidence for acute fracture or dislocation identified. <Electronically signed by Jethro King > 05/15/20 0913
[2020-05-15] MEDS ORDERED: ONDANSETRON 4MG/2ML VIAL IV ONE (10:55)
[2020-05-15] MEDS ORDERED: MORPHINE 2 MG/ML 1ML VIAL (J2270) IV ONE (10:55)
[2020-05-15 11:48] LABS: HEMATOCRIT 32.7 % (36.0-47.0); HEMOGLOBIN 10.2 g/dl (12.0-15.5); MEAN CORPUSCULAR HEMOGLOBIN 27.9 pg (27.0-33.0); MEAN CORPUSCULAR HGB CONC 31.2 g/dl (32.0-36.5); MEAN CORPUSCULAR VOLUME 89.3 fl (80.0-96.0); PLATELET COUNT, AUTOMATED 162 10^3/uL (150-450); RED BLOOD COUNT 3.66 10^6/uL (4.00-5.40); WHITE BLOOD COUNT 5.7 10^3/uL (4.0-10.0)
[2020-05-15] MEDS ORDERED: LOPE2TAB12 PO (11:56)
[2020-05-15] MEDS ORDERED: METR-265 PO (11:56)
[2020-05-15] MEDS ORDERED: CIPR500T39 PO (11:56)
[2020-05-15] MEDS ORDERED: ACET-907 PO (11:56)
[2020-05-15 11:57] LABS: INR 1.66
[2020-05-15 11:58] LABS: PARTIAL THROMBOPLASTIN TIME 32.6 SECONDS (24.2-38.5)
[2020-05-15 12:10] LABS: ATYPICAL LYMPH 1 % (0-5); LYMPHOCYTES 12 % (16-44); MONOCYTES 10 % (0-5); NEUTROPHILS 74 % (28-66); PLATELET ESTIMATE NORMAL (NORMAL)
[2020-05-15 12:13] LABS: ERYTHROCYTE SEDIMENTATION RATE 13 mm/hr (0-30)
[2020-05-15 12:21] LABS: ALBUMIN 2.6 GM/DL (3.2-5.2); BILIRUBIN,DIRECT 0.2 MG/DL (0.0-0.2); BILIRUBIN,TOTAL 0.5 MG/DL (0.2-1.0); C REACTIVE PROTEIN QUANTITATIV 3.03 MG/DL (0.00-0.30); CK-MB VALUE MASS 1.2 NG/ML (<3.6); MB/CK RELATIVE INDEX 4.29 (< OR =4); TOTAL PROTEIN 4.7 GM/DL (6.4-8.2); TROPONIN I 0.03 NG/ML (< 0.10)
[2020-05-15] MEDS ORDERED: KETOROLAC 30 MG/ML 1ML VIAL IV ONE (12:50)
[2020-05-15] MEDS ORDERED: LOPERAMIDE 2 MG CAPLET PO PRN (12:50)
[2020-05-15] MEDS ORDERED: predniSONE 20 MG TAB PO ONE (12:50)
[2020-05-15] MEDS ORDERED: FUROSEMIDE 40MG/4ML VIAL (J1940) IV ONE (12:50)
--- NOTE | 2020-05-15 13:23 | ECGEPIP ---
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
[2020-05-15] MEDS: APIXABAN 5 MG TAB (ELIQUIS) PO SCH ×2 (13:44→20:02)
[2020-05-15] MEDS: METOPROLOL SUCC (TopROL XL) 50MG **XL** TAB PO SCH (13:45)
[2020-05-15] MEDS: metroNIDAZOLE (FLAGYL) 500MG TABLET PO SCH ×3 (13:45→20:02)
[2020-05-15] MEDS: MAGNESIUM OXIDE 400MG TAB (MAG-OX) PO SCH ×3 (13:45→20:03)
[2020-05-15] MEDS: CIPROFLOXACIN 500MG TABLET PO SCH ×2 (13:46→20:02)
[2020-05-15] MEDS ORDERED: ACETAMINOPHEN TAB 650MG DOSE (2X325MG) PO PRN (14:55)
[2020-05-15 16:05] VITALS: BP 131/57
[2020-05-15] MEDS: OMEPRAZOLE 20 MG CAP PO SCH (16:50)
[2020-05-15] MEDS: ATORVASTATIN 20 MG TAB PO SCH (16:50)
[2020-05-15] MEDS: LEVOTHYROXINE 88MCG TABLET (0.088 MG) PO SCH (16:50)
[2020-05-15] MEDS: busPIRone 10 MG TAB PO SCH (17:05)
--- NOTE | 2020-05-15 17:24 | CR ---
CONSULTATION DATE: 05/15/2020 CHIEF COMPLAINT: Right knee pain. HISTORY OF PRESENT ILLNESS: This 85-year-old female presents with a 12-hour history of right knee pain. This came after a recent admission for diverticulitis. She was admitted to [facility] over the weekend, discharged home last week, developed right knee pain and swelling. No other ankle or swollen joints. No fevers. She feels well. She feels better than yesterday. She has been placed on oral antibiotics, due to her discharge for diverticulosis. MEDICAL HISTORY: 1. Colon cancer 1980s. 2. Chemotherapy. 3. Chronic diarrhea. 4. Pancytopenia. 5. Coronary artery disease (CAD). 6. History of myocardial infarction (MT). 7. Cardiomyopathy. 8. Stent placement. 9. Pericardial effusion. 10. Bilateral stones, post endoscopic retrograde cholangiopancreatography (ERCP). 11. Paroxysmal atrial fibrillation (PAF), on Eliquis. 12. Hypertension. 13. Hypothyroid. 14. Gastritis. 15. History of peripheral arterial disease (PAD). 16. Esophageal stricture. 17. Vitamin D deficiency. 18. Benign positional vertigo. 19. Osteoarthritis. 20. Diverticulitis. 21. Degenerative disc disease. 22. Anxiety. 23. Hypomagnesemia. 24. Cholecystectomy. 25. Hysterectomy. MEDICATIONS: Prednisone, BuSpar, magnesium oxide, metronidazole, loperamide, ciprofloxacin, omeprazole, metoprolol, atorvastatin, apixaban, levothyroxine. ALLERGIES: ALBUTEROL, IPRATROPIUM SOCIAL HISTORY: She is here with her daughter today. PHYSICAL EXAMINATION: Well-appearing 85-year-old female in mild distress. She appears well, however. No temperature recorded. Respiratory rate 16, 98% on room air, pulse rate 73. She has a trace effusion of the right knee. She is holding it in slight flexion. There is moderate warmth. No redness. No drainage. No past incisions. She has mild pain to palpation of the anterior aspect of the knee. Range of motion 0-40 degrees. No pain with micromotion. Normal sensation, motor function of the foot. Foot is warm and well perfused. Strong dorsalis pedis pulse. IMAGING STUDY: Vascular ultrasound negative for deep venous thrombosis (DVT). Knee x-ray was performed that showed osteopenia, advanced tricompartmental osteoarthritic degenerative changes, suprapatellar effusion without evidence of acute fracture or dislocation identified. LABORATORY EXAMINATION: Revealed WBC 5.7. Neutrophil percentage not performed. Neutrophils absolute 74, lymphocytes 12, monocytes 10, ESR 13. CRP of 3.03. Lactic acid 1.7. ASSESSMENT AND PLAN: This 85-year-old female has a very low suspicion of an acute septic arthritis. In keeping with the clinical history, recent admission, as well as clinical exam and blood work, I think this is more in keeping with an acute inflammatory effusion. As such, I did suggest admission by the hospitalist service, and I communicated this directly to Dr. Snider, as well as oral anti-inflammatories as per the hospitalist, such as indomethacin and close followup by myself as well as the hospitalist to ensure that this does not progress.
[2020-05-15 22:00] VITALS: BP 101/48
[2020-05-15 22:07] LABS: URIC ACID 2.5 MG/DL (2.6-6.0)
--- NOTE | 2020-05-15 22:15 | HPEPDOC ---
General Date of Admission 05/15/20 Date of Service: May 15, 2020 Chief Complaint The patient is a 85-year-old female admitted with a reason for visit of Leg pain. 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 Benign positional vertigo, Mnire's disease, history of peptic ulcer disease and esophageal stricture was recently admitted from 05/11/20 to 05/14/20 for enterocolitis vs Small bowel diverticulitis and was discharged home with ciprofloxacin and metronidazole. Her diarrhea and abdominal pain had improved. After going home she noticed her right knee was increasingly getting swollen throughout the evening. It was also painful. She went to bed. This morning she woke up with her right knee more swollen, and extremely painful. She has been unable to bear weight on her right leg, so came back to the emergency room. Patient complains of dull aching and throbbing pain at the right knee and right leg down to the right ankle about 6/10 in intensity better than before. it worsens and becomes a sharp pain 10/10 in intensity when she tries to bear weight on the right leg. Xray of the right knee showed advanced tricompartmental OA with suprapateller bursitis and a bakers cyst in the popliteal fossa. Right ankle xray showed advnced degenerative changes without any fracture or dislocation. DVT scanning of the right leg was negative. Patient was seen by ortho in [facility] ED and they felt it was a reactive arthritis rather than septic arthritis. Home Medications Scheduled Apixaban (Eliquis) 5 Mg Tablet, 5 MG PO BID, (Reported) Aspirin (Aspirin EC) 81 Mg Tab, 81 MG PO DAILY, (Reported) Atorvastatin Calcium (Atorvastatin Calcium) 40 Mg Tab, 40 MG PO DAILY, (Reported) Buspirone HCl (Buspirone HCl) 10 Mg Tab, 10 MG PO BID, (Reported) TAKES 0800/1500 Cholecalciferol (Vitamin D3) (Vitamin D3) 1,000 Unit Tablet, 2,000 UNITS PO DAILY, (Reported) Ciprofloxacin HCl (Ciprofloxacin HCl) 500 Mg Tablet, 500 MG PO BID, (Reported) STARTED 05/14/20 FOR 5 DAYS Ferrous Sulfate (Ferrous Sulfate) 325 Mg Tablet, 325 MG PO DAILY, (Reported) Levothyroxine Sodium (Synthroid) 88 Mcg Tablet, 88 MCG PO DAILY, (Reported) Magnesium Oxide (Magnesium Oxide) 400 Mg Tablet, 400 MG PO QID, (Reported) Metoprolol Succinate (Metoprolol Succinate) 50 Mg Tab.er.24h, 50 MG PO DAILY, (Reported) Metronidazole (Metronidazole) 500 Mg Tablet, 500 MG PO TID, (Reported) STARTED 05/14/20 FOR 5 DAYS Omeprazole (Omeprazole) 40 Mg Capsule.dr, 40 MG PO DAILY, (Reported) Scheduled PRN Acetaminophen (Tylenol) 325 Mg Tablet, 650 MG PO QID PRN for PAIN / FEVER, (Reported) Loperamide HCl (Imodium A-D) 2 Mg Tablet, 2 MG PO PRN PRN for DIARRHEA, (Reported) Lorazepam (Ativan) 0.5 Mg Tablet, 0.5 MG PO Q4HP PRN for ANXIETY/AGITATION, (Reported) Nitroglycerin (Nitrostat) 0.4 Mg Subl, 0.4 MG SL NITRO PRN for CHEST PAIN, (Reported) Ondansetron HCl (Ondansetron HCl) 8 Mg Tablet, 8 MG PO Q12HP PRN for NAUSEA OR VOMITING Prochlorperazine Maleate (Prochlorperazine Maleate) 10 Mg Tablet, 10 MG PO Q6H PRN for NAUSEA OR VOMITING Allergies Coded Allergies: albuterol (Verified Allergy, Severe, Shortness of breath, 05/04/18) ipratropium (Verified Allergy, Severe, Shortness of breath, 05/04/18) Past Medical History Medical History Recurrent Colon cancer with mets to liver and lungs on chemo and had SBRT to liver December 2017. Colon cancer in the 1980s status post surgical resection with no adjuvant therapy. 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 Recurrent Colon ca in 2018 with mets. . Chronic diarrhea Pancytopenia CAD/history of AR/stent placement 2013/ischemic cardiomyopathy, EF 35%/ICD /14 History of pericardial effusion status post pericardial window History of biliary stones status post ERCP/stent 03/26, 09/25 PAF on Eliquis Hypertension Hypothyroid Gastritis/history of PUD/history of esophageal stricture Vitamin D deficiency Benign positional vertigo/Mnire's Osteoarthritis Diverticulosis Degenerative disc disease Anxiety Hypomagnesemia, chronic. Surgical History Left Colon resection in 1979 LAR in 2013 Cholecystectomy Hysterectomy with BSO. Family History Her mother had a gynecological cancer. Her father had lung cancer. A brother had lung cancer and esophageal cancer. A sister had pancreatic cancer. Social History * Smoker: Denies Alcohol: Denies Drugs: denies A-FIB/CHADSVASC A-FIB History Current/History of A-Fib/PAF?: Yes Current PO Anticoag Therapy: Yes Review of Systems Constitutional: Denies: Chills, Fever, Night Sweats Eyes: Denies: Pain, Vision change ENT: Denies: Head Aches, Ear Pain, Dysphagia Skin: Denies: Rash, Lesions, Breakdown Pulmonary: Denies: Dyspnea, Cough Cardiovascular: Denies: Chest Pain, Palpitations, Orthopnea, Paroxysmal Noc. Dyspnea, Lt Headedness Gastrointestinal: Reports: Diarrhea; Denies: Nausea, Vomiting, Abdominal Pain Musculoskeletal: Reports: Joint Pain Physical Examination General Exam: Positive: Alert, Cooperative, No Acute Distress Eye Exam: Positive: PERRLA, Conjunctiva & lids normal, EOMI; Negative: Sclera icteric ENT Exam: Positive: Atraumatic, Mucous membr. moist/pink, Pharynx Normal Neck Exam: Positive: Supple, JVD; Negative: thyromegaly Chest Exam: Positive: Normal air movement, Diminished, Other (bibasillar crackles) Heart Exam: Positive: Rate Normal, Regular Rhythm, Normal S1, Normal S2; Negative: Murmurs, Rubs Abdomen Exam: Positive: Normal bowel sounds, Soft; Negative: Tenderness, Hepatospenomegaly Extremity Exam: Positive: Edema (2+ pedal edema on luda left and 3+ edema ont he right), Normal pulses, Tenderness (right knee), Swelling (right knee); Negative: Clubbing, Cyanosis Skin Exam: Positive: Nl turgor and temperature; Negative: Breakdown, Lesion Neuro Exam: Positive: Normal Speech Psych Exam: Positive: Oriented x 3 Vital Signs Vital Signs Date Time Temp Pulse Resp B/P (MAP) Pulse Ox O2 Delivery O2 Flow Rate FiO2 05/15/20 11:40 16 05/15/20 11:36 73 98 Room Air 05/15/20 10:31 153/66 (95) 05/15/20 08:02 96.8 Laboratory Data Labs 24H Laboratory Tests 2 05/15/20 08:08: Neutrophils (%) (Auto) , Nucleated Red Blood Cells % (auto) 0.0, Prothrombin Time 20.0H, Prothromb Time International Ratio 1.66, Activated Partial Thromboplast Time 32.6 05/15/20 11:38: POC Glucose (Misc Panel) 151H, POC Sodium (Misc Panel) 140, POC Potassium (Misc Panel) 3.6, POC Chloride (Misc Panel) 104, POC Total CO2 (Misc Panel) 24.0, POC Blood Urea Nitrogen (Misc Panel 4L, POC Ionized Calcium (Misc Panel) 4.7, POC Creatinine (Misc Panel) 0.5L, POC Hematocrit (Misc Panel) 29.0L CBC/BMP Laboratory Tests 05/15/20 08:08 Microbiology Microbiology 05/15/20 Blood Culture, Received Pending 05/15/20 Respiratory Virus Panel (PCR) (MANNY) - Final, Complete 05/15/20 Blood Culture, Received Pending Assessment/Plan 85 year old female with 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 Benign positional vertigo, Mnire's disease, history of peptic ulcer disease and esophageal stricture was recently admitted from 05/11/20 to 05/14/20 for enterocolitis vs Small bowel diverticulitis and was discharged home with ciprofloxacin and metronidazole. After going home she noticed her right knee was increasingly getting swollen and painful and this am she could not bear weight on the right leg so came back to ED. Xray of the right knee showed advanced tricompartmental OA with suprapateller bursitis and a bakers cyst in the popliteal fossa. Right ankle xray showed advanced degenerative changes without any fracture or dislocation. Patient was seen by ortho in [facility] ED and they felt it was a reactive arthritis rather than septic arthritis. Reactive arthritis vs septic arthritis suspicion for septic arthritis is low. likely reactive arthritis to enterocolitis. Could also be due to worsening severe OA with generalized fluid overload from recnt hospitalization, recieving IVF being off diuretics. will give toradol, prednisone.tylenol prn. Lasix iv. check uric acid. continue cipro and floagyl. Enterocolitis vs small bowel diverticulitis infectious vs chemotherapy related continue cipro and flagyl. Systolic and diastolic CHF exacerbation/ AICD in place ischemic cardiomyopathy. EF of 35% to 40% will give iv lasix. PAF on Eliquis Recurrent colon cancer with mets to liver and lungs in 2018 on chemotherapy (Third recurrence first had it in 1979) H/o Colon cancer in the status post surgical resection with no adjuvant therapy. 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 Pancytopenia due to chemotherapy Chronic diarrhea from extensive colon resection imodium prn CAD/history of AR/stent placement 2013/ischemic cardiomyopathy, EF 35%/ICD 06/21 metoprolol, statin, eliquis History of pericardial effusion status post pericardial window History of biliary stones status post ERCP/stent 03/26, 09/25 Hypertension metoprolol Hypothyroid synthroid Gastritis/history of PUD/history of esophageal stricture/ Hiatal hernia PPI Vitamin D deficiency Benign positional vertigo/Mnire's Anxiety buspirone Hypomagnesemia, chronic continue supplement . Plan / VTE VTE Prophylaxis Ordered?: Yes HAI BAXTER MD May 15, 2020 12:13
[2020-05-16] MEDS: LEVOTHYROXINE 88MCG TABLET (0.088 MG) PO SCH (05:46)
[2020-05-16 06:00] VITALS: BP 100/55
[2020-05-16] MEDS: APIXABAN 5 MG TAB (ELIQUIS) PO SCH (08:05)
[2020-05-16] MEDS: metroNIDAZOLE (FLAGYL) 500MG TABLET PO SCH (08:05)
[2020-05-16] MEDS: busPIRone 10 MG TAB PO SCH ×2 (08:05→15:58)
[2020-05-16] MEDS: CIPROFLOXACIN 500MG TABLET PO SCH (08:05)
[2020-05-16] MEDS: ATORVASTATIN 20 MG TAB PO SCH (08:06)
[2020-05-16] MEDS: MAGNESIUM OXIDE 400MG TAB (MAG-OX) PO SCH ×2 (08:06→13:26)
[2020-05-16] MEDS: OMEPRAZOLE 20 MG CAP PO SCH (08:06)
[2020-05-16 08:07] VITALS: BP 128/58
[2020-05-16] MEDS: METOPROLOL SUCC (TopROL XL) 50MG **XL** TAB PO SCH (08:07)
[2020-05-16] MEDS ORDERED: predniSONE 20 MG TAB PO SCH (09:00)
[2020-05-16] MEDS ORDERED: FUROSEMIDE 40MG/4ML VIAL (J1940) IV SCH (09:00)
--- NOTE | 2020-05-16 12:31 | IPNPDOC ---
Subjective Date Seen The patient was seen on 05/16/20. Subjective Chief Complaint/HPI Her knee looks better. It is less swollen. It not warm or red. She is able to move her leg more and bend it better. I have consulted PT for a HSE. If she is able to work a little with PT and bale to walk to back and forth to the bathroom then she may be able to go home with services. She does have 4 stairs to get into the house she she needs to be able to negotiate. Objective Physical Examination General Exam: Positive: Alert, Cooperative, No Acute Distress Eye Exam: Positive: PERRLA, Conjunctiva & lids normal, EOMI; Negative: Sclera icteric ENT Exam: Positive: Atraumatic, Mucous membr. moist/pink, Pharynx Normal Neck Exam: Positive: Supple, JVD; Negative: thyromegaly Chest Exam: Positive: Normal air movement, Diminished, Other (bibasillar crackles) Heart Exam: Positive: Rate Normal, Regular Rhythm, Normal S1, Normal S2; Negative: Murmurs, Rubs Abdomen Exam: Positive: Normal bowel sounds, Soft; Negative: Tenderness, Hepatospenomegaly Extremity Exam: Positive: Edema (2+ pedal edema on luda left and 3+ edema ont he right), Normal pulses, Tenderness (right knee), Swelling (right knee); Negative: Clubbing, Cyanosis Skin Exam: Positive: Nl turgor and temperature; Negative: Breakdown, Lesion Neuro Exam: Positive: Normal Speech Psych Exam: Positive: Oriented x 3 Assessment /Plan Assessment 85 year old female with 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 Benign positional vertigo, Mnire's disease, history of peptic ulcer disease and esophageal stricture was recently admitted from 05/11/20 to 05/14/20 for enterocolitis vs Small bowel diverticulitis and was discharged home with ciprofloxacin and metronidazole. After going home she noticed her right knee was increasingly getting swollen and painful and this am she could not bear weight on the right leg so came back to ED. Xray of the right knee showed advanced tricompartmental OA with suprapateller bursitis and a bakers cyst in the popliteal fossa. Right ankle xray showed adva nced degenerative changes without any fracture or dislocation. Patient was seen by ortho in [facility] ED and they felt it was a reactive arthritis rather than septic arthritis. Reactive arthritis vs septic arthritis suspicion for septic arthritis is low. likely reactive arthritis to enterocolitis. Could also be due to worsening severe OA with generalized fluid overload from recent hospitalization, receiving IVF being off diuretics. prednisone.tylenol prn. Lasix iv. uric acid not elevated continue cipro and floagyl. Enterocolitis vs small bowel diverticulitis infectious vs chemotherapy related continue cipro and flagyl. Systolic and diastolic CHF exacerbation/ AICD in place ischemic cardiomyopathy. EF of 35% to 40% will give iv lasix. PAF on Eliquis Recurrent colon cancer with mets to liver and lungs in 2018 on chemotherapy (Third recurrence first had it in 1979) H/o Colon cancer in the status post surgical resection with no adjuvant therapy. 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 Pancytopenia due to chemotherapy Chronic diarrhea from extensive colon resection imodium prn CAD/history of [place]/stent placement 2013/ischemic cardiomyopathy, EF 35%/ICD 06/21 metoprolol, statin, eliquis History of pericardial effusion status post pericardial window History of biliary stones status post ERCP/stent 03/26, 09/25 Hypertension metoprolol Hypothyroid synthroid Gastritis/history of PUD/history of esophageal stricture/ Hiatal hernia PPI Vitamin D deficiency Benign positional vertigo/Mnire's Anxiety buspirone Hypomagnesemia, chronic continue supplement Plan/VTE VTE Prophylaxis Ordered?: Yes VS, I&O, 24H, Fishbone Vital Signs/I&O Vital Signs Date Time Temp Pulse Resp B/P (MAP) Pulse Ox O2 Delivery O2 Flow Rate FiO2 05/16/20 08:07 63 128/58 05/16/20 06:00 96.8 20 96 Room Air I&O- Last 24 Hours up to 6 AM 05/16/20 06:00 Intake Total 100 ml Output Total 1550 ml Balance -1450 ml Laboratory Data 24H LABS Laboratory Tests 2 05/16/20 11:45: Lab Scanned Report Miscellaneous Lab Microbiology Microbiology 05/15/20 Blood Culture - Preliminary, Resulted No growth after 24 hours . All specim... 05/15/20 Respiratory Virus Panel (PCR) ([facility]) - Final, Complete 05/15/20 Blood Culture - Preliminary, Resulted No growth after 24 hours . All specim... HAI BAXTER MD May 16, 2020 12:31
[2020-05-16] MEDS ORDERED: PRED20TA PO (13:27)
[2020-05-16] MEDS ORDERED: LASI40TA9 PO (13:27)
[2020-05-16 14:00] VITALS: BP 123/63
[2020-05-16] MEDS ORDERED: SODIUM CHLORIDE 0.9% INJ 10 ML SYR IV PRN (16:20)
[2020-05-17] MEDS ORDERED: SODIUM CHLORIDE 0.9% INJ 10 ML SYR IV SCH (09:00)
== END 2020-05-16 17:19 | disposition home or self-care (01) ==
LOC: M ED 07:52 → EDBD 07:52 → M ED INP 12:47 → ENRESERV 13:12 → M MSPAV 16:05
PROVIDERS: ADMIT Internal Medicine Nephrology; ATTEND Internal Medicine Nephrology
DX: M25.461 Effusion, right knee (principal); M02.861 Other reactive arthropathies, right knee; C18.9 Malignant neoplasm of colon, unspecified; C78.7 Secondary malignant neoplasm of liver and intrahepatic bile duct; C78.00 Secondary malignant neoplasm of unspecified lung; I48.0 Paroxysmal atrial fibrillation; Z79.01 Long term (current) use of anticoagulants; I25.10 Atherosclerotic heart disease of native coronary artery without angina pectoris; Z79.82 Long term (current) use of aspirin; Z98.61 Coronary angioplasty status; I11.0 Hypertensive heart disease with heart failure; I50.41 Acute combined systolic (congestive) and diastolic (congestive) heart failure; E03.9 Hypothyroidism, unspecified; Z88.8 Allergy status to other drugs, medicaments and biological substances; E55.9 Vitamin D deficiency, unspecified; M71.21 Synovial cyst of popliteal space [Baker], right knee; Z92.21 Personal history of antineoplastic chemotherapy; Z79.899 Other long term (current) drug therapy; D61.810 Antineoplastic chemotherapy induced pancytopenia; F41.9 Anxiety disorder, unspecified; E83.42 Hypomagnesemia; K44.9 Diaphragmatic hernia without obstruction or gangrene; M79.604 Pain in right leg
CPT/HCPCS: 36415; 73564; 73630; 80047; 80076; 82550; 82553; 83605; 83690; 84484; 84550; 85025; 85610; 85652; 85730; 86140; 86850; 86900; 86901; 87040; 87798; 93005; 93041; 93971; 96374; 96375; 96376; 97116; 97161; 99285; G0378; J1642; J1885; J1940; J2270; J2405

== ENCOUNTER 2020-07-30 14:23 | Emergency (ER) | payer MEDICARE ==
[~2020-07-30] VITALS: Ht 157.5 cm; Wt 75.0 kg
[~2020-07-30 14:23] MED LIST changes: +ACET-907 PO; +BACTDSTA PO; +CIPR500T39 PO; +COVI100V IM; +K-TA10TA PO; +LASI40TA9 PO; +LOPE2TAB12 PO; +OMEP40CA4 PO; -OMEP40CA97 PO; +PRED20TA PO; -SULF1TAB93 PO
[2020-07-30] MEDS ORDERED: MORPHINE 2 MG/ML 1ML VIAL (J2270) IV ONE (15:55)
[2020-07-30 18:02] LABS: BASO % 0.3 % (0.0-1.0); EOS # 0.1 10^3/uL (0.0-0.5); EOS % 2.9 % (0.0-3.0); HEMATOCRIT 33.2 % (36.0-47.0); HEMOGLOBIN 10.2 g/dl (12.0-15.5); LYMPH # 0.5 10^3/uL (1.5-5.0); LYMPH % 12.4 % (24.0-44.0); MEAN CORPUSCULAR HEMOGLOBIN 28.1 pg (27.0-33.0); MEAN CORPUSCULAR HGB CONC 30.7 g/dl (32.0-36.5); MEAN CORPUSCULAR VOLUME 91.5 fl (80.0-96.0); MONO # 0.4 10^3/uL (0.0-0.8); MONO % 11.6 % (2.0-8.0); NEUTROPHILS # 2.7 10^3/uL (1.5-8.5); NEUTROPHILS % 72.3 % (36.0-66.0); PLATELET COUNT, AUTOMATED 187 10^3/uL (150-450); RED BLOOD COUNT 3.63 10^6/uL (4.00-5.40); WHITE BLOOD COUNT 3.8 10^3/uL (4.0-10.0)
[2020-07-30 18:21] LABS: ALBUMIN 2.6 GM/DL (3.2-5.2); ALT/SGPT < 6 U/L (12-78); BILIRUBIN,DIRECT 0.3 MG/DL (0.0-0.2); BILIRUBIN,TOTAL 0.7 MG/DL (0.2-1.0); BLOOD UREA NITROGEN 9 MG/DL (7-18); CALCIUM LEVEL 8.4 MG/DL (8.8-10.2); CARBON DIOXIDE LEVEL 27 MEQ/L (21-32); CHLORIDE LEVEL 112 MEQ/L (98-107); CK-MB VALUE MASS < 1.0 NG/ML (<3.6); CPK CREATINE PHOSPHOKINASE 24 U/L (26-192); CREATININE FOR GFR 0.58 MG/DL (0.55-1.30); GLOMERULAR FILTRATION RATE > 60.0 (>32); GLUCOSE, FASTING 101 MG/DL (70-100); LIPASE 64 U/L (73-393); MB/CK RELATIVE INDEX 4.17 (< OR =4); POTASSIUM SERUM 3.7 MEQ/L (3.5-5.1); SODIUM LEVEL 146 MEQ/L (136-145); TOTAL PROTEIN 4.9 GM/DL (6.4-8.2); TROPONIN I < 0.02 NG/ML (< 0.10)
[2020-07-30] MEDS ORDERED: ISOVUE-370 76% 100ML VIAL As Ordered ONE (18:26)
[2020-07-30] MEDS ORDERED: NS 500 ML IV ONE (18:50)
--- NOTE | 2020-07-30 19:24 | REPVR ---
PROCEDURE INFORMATION: Exam: CT Abdomen And Pelvis With Contrast Exam date and time: 07/30/2020 6:30 PM Age: 85 years old Clinical indication: Other: Suprapubic pain TECHNIQUE: Imaging protocol: Computed tomography of the abdomen and pelvis with contrast. Radiation optimization: All CT scans at this facility use at least one of these dose optimization techniques: automated exposure control; mA and/or kV adjustment per patient size (includes targeted exams where dose is matched to clinical indication); or iterative reconstruction. Contrast material: ISOVUE 370; Contrast volume: 100 ml; Contrast route: INTRAVENOUS (IV); COMPARISON: 1. CT ABD/PEL W/IV ORAL CONTRAS 05/10/2020 9:[address] ABD PELVIS WITH CONTRAST 04/08/2020 11:44 AM FINDINGS: Lungs: Bibasilar atelectasis. Pleural spaces: Small right pleural effusion and minimal left pleural effusion. Mediastinal space: A small hiatal hernia is present. Liver: Multiple complex partially calcified irregular hypodensities demonstrated essentially replacing the posterior segment of the right lobe of the liver consistent with metastatic disease. Ring-enhancing irregular hypodense mass in the lateral segment (segment 2) left lobe of the liver consistent with metastasis. Several of a hypodensities demonstrated in the anterior segment of the right lobe, possibly metastatic. Gallbladder and bile ducts: Indwelling biliary stent demonstrated containing a mixture of air and fluid. There is moderate intrahepatic biliary dilatation. Pancreas: Normal. No ductal dilation. Spleen: Normal. No splenomegaly. Adrenal glands: There is bilateral adrenal hyperplasia. Kidneys and ureters: Normal. No hydronephrosis. Stomach and bowel: Duodenal diverticulum. Diverticular disease in the colon most pronounced in the sigmoid colon. Status post distal colon anastomosis. There are inflammatory changes demonstrated in the sigmoid colon particularly in the suprapubic region. Differential includes diverticulitis or segmental colitis. Appendix: No evidence of appendicitis. Intraperitoneal space: Unremarkable. No free air. No significant fluid collection. Vasculature: Unremarkable. No abdominal aortic aneurysm. Lymph nodes: Unremarkable. No enlarged lymph nodes. Urinary bladder: Unremarkable as visualized. Reproductive: There has been a hysterectomy. Bones/joints: The spine demonstrates moderate degenerative changes. Severe central spinal stenosis T12-L1, L2-L3, L3-L4, and L4-L5. [id number] central spinal stenosis L5-S1. Soft tissues: Unremarkable. Other findings: Osteoporosis. IMPRESSION: 1. Small right pleural effusion and minimal left pleural effusion. 2. There has been a hysterectomy. 3. Findings compatible with progressive metastatic disease. 4. Indwelling biliary stent demonstrated containing a mixture of air and fluid. There is moderate intrahepatic biliary dilatation. 5. There is bilateral adrenal hyperplasia. 6. A small hiatal hernia is present. 7. Diverticular disease in the colon most pronounced in the sigmoid colon. Status post distal colon anastomosis. There are inflammatory changes demonstrated in the sigmoid colon particularly in the suprapubic region. Differential includes diverticulitis or segmental colitis. Electronically signed by: Macho Beck On 07/30/2020 19:23:54 PM
[2020-07-30] MEDS ORDERED: METR-265 PO (19:49)
[2020-07-30] MEDS ORDERED: CIPR-249 PO (19:49)
[2020-07-30] MEDS ORDERED: TRAM50TA2 PO (19:49)
[2020-07-30] MEDS ORDERED: NORCO 5/325MG TABLET (BULK FOR ED) PO ONE (19:50)
[2020-07-30] MEDS ORDERED: CIPROFLOXACIN 500MG TABLET PO ONE (19:50)
[2020-07-30] MEDS ORDERED: metroNIDAZOLE (FLAGYL) 500MG TABLET PO ONE (19:50)
[2020-07-30 20:22] VITALS: BP 137/78
--- NOTE | 2020-08-01 05:56 | ECGEPIP ---
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
--- NOTE | 2020-08-02 14:04 | ED PDOC ---
Post-Departure Follow-Up radiology report faxed to Tuyet Romero MD Aug 02, 2020 14:04
[2020-08-06] MEDS ORDERED: METO200T28 PO (11:18)
== END 2020-07-30 20:25 | disposition home or self-care (01) ==
LOC: M ED 14:23
DX: K57.32 Diverticulitis of large intestine without perforation or abscess without bleeding (principal); K52.9 Noninfective gastroenteritis and colitis, unspecified; I25.2 Old myocardial infarction; R94.31 Abnormal electrocardiogram [ECG] [EKG]; I11.0 Hypertensive heart disease with heart failure; I50.9 Heart failure, unspecified; I48.91 Unspecified atrial fibrillation; I25.10 Atherosclerotic heart disease of native coronary artery without angina pectoris; E03.9 Hypothyroidism, unspecified; Z79.890 Hormone replacement therapy; Z79.899 Other long term (current) drug therapy; Z79.82 Long term (current) use of aspirin; Z88.8 Allergy status to other drugs, medicaments and biological substances; Z80.1 Family history of malignant neoplasm of trachea, bronchus and lung
CPT/HCPCS: 74177; 80048; 80076; 81001; 82550; 82553; 83605; 83690; 84484; 85025; 93005; 93041; 96361; 96374; 99284; J2270; Q9967

== ENCOUNTER → 2020-08-05 | Outpatient (CLI) | payer MEDICARE ==
[~2020-08-05] MED LIST changes: +GASTROGRAFIN SOLUTION 30ML (Q9963) As Ordered ONE; +ISOVUE-370 76% 100ML VIAL As Ordered ONE; +METO200T28 PO; +TRAM50TA2 PO
--- NOTE | 2020-08-05 13:46 | REP ---
INDICATION: MET COLON CA COMPARISON: 04/08/2020 TECHNIQUE: Axial contrast enhanced images from the thoracic inlet to the upper abdomen with coronal and sagittal reformations using 100 ml Isovue 370 intravenous contrast material. Examination is followed by CT of the abdomen and pelvis. This CT examination was performed using the following dose reduction techniques: Automated exposure control, adjustment of mA and/or kv according to the patient's size, and use of iterative reconstruction technique. FINDINGS: Small nodule in the periphery of the left upper lobe (series 204; image 33) as well as grouping of nodules along the anterior margin of the right upper lobe (series 204; images 31-34) remain relatively stable. 9 mm nodule in the lingula (series 204; image 56) appears to be increased in size from prior examination when measuring 6 mm. A small nodule at the base of the right upper lobe and smaller nodule in the apical aspect of the right middle lobe may be slightly more prominent than prior examination. There appears to be moderate increased pleural effusions and small slightly increased pericardial effusion. Cardiomegaly remains stable right main pulmonary artery is again dilated to approximately 3 cm diameter. No obvious adenopathy identified. Moderate hiatal hernia at the gastroesophageal junction again noted. Osseous structures demonstrate osteopenia and degenerative changes. Upper abdominal findings detailed in accompanying CT of the abdomen and pelvis. IMPRESSION: 1. There appears to be slight increase to the pleural effusions and pericardial fluid which is nonspecific. 2. Scattered pulmonary nodules are again identified-most of which remain stable although few specifically in the lingula and possibly in the mid to lower right lung may be slightly increased in size. 3. Upper abdominal findings detailed in the accompanying CT of the abdomen and pelvis. <Electronically signed by Jethro King > 08/05/20 [id number]
--- NOTE | 2020-08-05 14:18 | REP ---
INDICATION: MET COLON CA. COMPARISON: 07/30/2020, 05/10/2020 TECHNIQUE: Axial contrast-enhanced images from the lung bases to the pubic symphysis using oral and 100 cc Isovue 370 intravenous contrast material. Coronal and sagittal reformations obtained along with delayed images of the abdomen. This CT examination was performed using the following dose reduction techniques: Automated exposure control, adjustment of mA and/or kv according to the patient's size, and the use of iterative reconstruction technique. FINDINGS: Liver demonstrates somewhat mottled hypodense areas with subtle surrounding enhancement involving the right lobe and to a lesser extent similar focus in the medial left lobe which are similar to prior examination and suspicious for underlying hepatic malignancy/metastatic disease. Patient is again noted to be status post common bile duct stent placement with intrahepatic and extrahepatic biliary dilatation relatively unchanged. Spleen, pancreas, bilateral adrenal glands are normal. Kidneys again demonstrate cortical atrophic changes and hypodensities compatible with cysts measuring 2.4 cm in the right kidney and 2.0 cm in the left kidney. Moderate hiatal hernia at the gastroesophageal junction noted. Small bowel is grossly unremarkable and without obstruction or obvious acute process. Colon demonstrates moderate fecal stasis along with evidence for prior partial resection at the rectosigmoid level. No obvious acute colonic process identified. Pelvis demonstrates normal bladder and evidence for prior hysterectomy. No ascites. No free air. No obvious adenopathy. Abdominal aorta and vasculature appear normal. Musculoskeletal structures demonstrate age-related osteopenia and degenerative changes without acute focal osseous abnormality. IMPRESSION: 1. Heterogeneous mildly enhancing areas within the liver including subtle areas of central low-density primarily involving the right lobe and to a lesser extent single focus in the left lobe appear relatively similar to prior examination and likely reflect underlying malignancy/metastatic disease. 2. Common bile duct stent and biliary ductal dilatation similar to prior examination. 3. Further nonacute findings as described above. 4. No ascites, adenopathy, or new focal mass lesion. <Electronically signed by Jethro King > 08/05/20 [id number]
== END ==
LOC: M RAD 11:08
PROVIDERS: ATTEND Internal Medicine Medical Oncology
DX: C18.9 Malignant neoplasm of colon, unspecified (principal)
CPT/HCPCS: 71260; 74177; J1642; Q9963; Q9967

== ENCOUNTER → 2020-08-14 | Outpatient (CLI) | payer MEDICARE ==
[~2020-08-14] MED LIST changes: -GASTROGRAFIN SOLUTION 30ML (Q9963) As Ordered ONE; -ISOVUE-370 76% 100ML VIAL As Ordered ONE
[2020-08-14 17:41] LABS: CALCIUM LEVEL 8.7 MG/DL (8.8-10.2); CREATININE FOR GFR 1.02 MG/DL (0.55-1.30); DIGOXIN LEVEL 1.4 NG/ML (0.5-2.0); POTASSIUM SERUM 4.6 MEQ/L (3.5-5.1)
== END ==
LOC: M LAB 15:59
PROVIDERS: ATTEND Nurse Practitioner Family
DX: I48.0 Paroxysmal atrial fibrillation (principal)

== ENCOUNTER 2020-08-26 13:39 | Emergency (ER) | payer MEDICARE ==
[~2020-08-26] VITALS: Ht 157.5 cm; Wt 65.9 kg
[2020-08-26] MEDS ORDERED: SODIUM CHLORIDE 0.9% INJ 10 ML SYR IV PRN (16:00)
[2020-08-26] MEDS ORDERED: ONDANSETRON 4MG/2ML VIAL IV ONE (16:50)
[2020-08-26] MEDS ORDERED: MORPHINE 2 MG/ML 1ML VIAL (J2270) IV ONE (16:50)
[2020-08-26] MEDS ORDERED: NS 1,000 ML IV SCH (17:00)
[2020-08-26] MEDS ORDERED: NS 500 ML IV ONE (17:00)
[2020-08-26 17:08] LABS: HEMATOCRIT 34.9 % (36.0-47.0); HEMOGLOBIN 11.2 g/dl (12.0-15.5); MEAN CORPUSCULAR HEMOGLOBIN 28.7 pg (27.0-33.0); MEAN CORPUSCULAR HGB CONC 32.1 g/dl (32.0-36.5); MEAN CORPUSCULAR VOLUME 89.5 fl (80.0-96.0); PLATELET COUNT, AUTOMATED 202 10^3/uL (150-450); WHITE BLOOD COUNT 4.5 10^3/uL (4.0-10.0)
[2020-08-26 17:25] LABS: ATYPICAL LYMPH 1 % (0-5); EOSINOPHILS 1 % (0-3); LYMPHOCYTES 16 % (16-44); MONOCYTES 12 % (0-5); NEUTROPHILS 66 % (28-66)
[2020-08-26 17:26] LABS: PLATELET CLUMPS SMALL AMT; PLATELET ESTIMATE NORMAL (NORMAL)
[2020-08-26 17:38] LABS: ALBUMIN 2.4 GM/DL (3.2-5.2); ALT/SGPT 9 U/L (12-78); BILIRUBIN,DIRECT 0.4 MG/DL (0.0-0.2); BILIRUBIN,TOTAL 1.2 MG/DL (0.2-1.0); BLOOD UREA NITROGEN 13 MG/DL (7-18); CARBON DIOXIDE LEVEL 25 MEQ/L (21-32); CHLORIDE LEVEL 109 MEQ/L (98-107); GLOMERULAR FILTRATION RATE > 60.0 (>32); GLUCOSE, FASTING 117 MG/DL (70-100); LIPASE 57 U/L (73-393); POTASSIUM SERUM 3.2 MEQ/L (3.5-5.1); SODIUM LEVEL 142 MEQ/L (136-145); TOTAL PROTEIN 4.5 GM/DL (6.4-8.2)
[2020-08-26] MEDS ORDERED: ISOVUE-370 76% 100ML VIAL As Ordered ONE (18:11)
--- NOTE | 2020-08-26 19:34 | REPVR ---
PROCEDURE INFORMATION: Exam: CT Abdomen And Pelvis With Contrast Exam date and time: 08/26/2020 7:02 PM Age: 85 years old Clinical indication: Abdominal pain; Localized; Lower; Additional info: Lower abdominal pain TECHNIQUE: Imaging protocol: Computed tomography of the abdomen and pelvis with contrast. Radiation optimization: All CT scans at this facility use at least one of these dose optimization techniques: automated exposure control; mA and/or kV adjustment per patient size (includes targeted exams where dose is matched to clinical indication); or iterative reconstruction. Contrast material: ISOVUE 370; Contrast volume: 100 ml; Contrast route: INTRAVENOUS (IV); COMPARISON: CT ABD PELVIS WITH CONTRAST 08/05/2020 1:05 PM FINDINGS: Lungs: Bibasilar scarring/atelectasis. Pleural spaces: Resolution of previously demonstrated bilateral pleural effusions. Liver: Redemonstration of heterogeneously enhancing dominantly hypoechoic metastatic disease involving the posterior segment of the right lobe of the liver as well as the lateral segment of the left lobe of the liver. Extent of involvement not substantially changed in comparison to the prior examination of 08/05/2020. Gallbladder and bile ducts: There is moderate to marked dilatation of the intra and extrahepatic biliary tree status post placement of a indwelling biliary stent surrounding a grossly dilated common bile duct. Mixture both air and fluid demonstrated within the stent. Pancreas: Normal. No ductal dilation. Spleen: Normal. No splenomegaly. Adrenal glands: 8.5 mm hypodense lesion lateral limb of the left adrenal gland stable in appearance likely representing a lipid rich adenoma and less likely metastatic disease. Kidneys and ureters: Bilateral simple appearing renal cysts remain stable measuring up to 2.5 cm in the right kidney. No follow-up suggested. Stomach and bowel: Inflammatory changes with mucosal enhancement demonstrated in loops of distal small bowel likely representing distal jejunum and ileum where numerous diverticuli demonstrated. There is wall thickening and inflammation in the adjacent mesentery. Appendix: No evidence of appendicitis. Intraperitoneal space: See "Gallbladder and bile ducts" finding. Vasculature: Mild atherosclerotic changes. Otherwise unremarkable. No abdominal aortic aneurysm. Lymph nodes: Unremarkable. No enlarged lymph nodes. Urinary bladder: Unremarkable as visualized. Reproductive: There has been a hysterectomy. Bones/joints: The spine demonstrates moderate degenerative changes. Severe central spinal stenosis L2-L3, L3-L4, and L4-L5. Bulging annulus and intervertebral osteophytes with bilateral facet joint arthropathy L5-S1. Soft tissues: Unremarkable. Other findings: Osteoporosis. IMPRESSION: 1. Redemonstration of heterogeneously enhancing dominantly hypoechoic metastatic disease involving the posterior segment of the right lobe of the liver as well as the lateral segment of the left lobe of the liver. Extent of involvement not substantially changed in comparison to the prior examination of 08/05/2020. 2. There is moderate to marked dilatation of the intra and extrahepatic biliary tree status post placement of a indwelling biliary stent surrounding a grossly dilated common bile duct. Mixture both air and fluid demonstrated within the stent. No gross obstructing mass demonstrated. 3. 8.5 mm hypodense lesion lateral limb of the left adrenal gland stable in appearance likely representing a lipid rich adenoma and less likely metastatic disease. 4. There has been a hysterectomy. 5. Abnormal distal small bowel described above. Differential diagnosis includes small-bowel diverticulitis, inflammatory bowel disease least likely bowel infection. COMMENTS: Consistent with the [employer]'s Incidental Findings Committee white paper (J Am Mariam Radiol 2017): Any incidental adrenal lesion less than or equal to 1 cm is likely benign. No follow-up imaging is recommended for these lesions per consensus recommendations based on imaging criteria. Further lab evaluation could be pursued if warranted based on clinical findings. Electronically signed by: Macho Beck On 08/26/2020 19:34:03 PM
[2020-08-26 21:40] VITALS: BP 142/82
--- NOTE | 2020-08-26 22:16 | ECGEPIP ---
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: YASMINE : 1935 Requested By: Larry Marrero Order Number: [id number] Reading MD: Mk Gilbert Measurements Intervals [place] Rate: 103 P: IA: QRS: -53 QRSD: 72 T: -78 QT: 316 QTc: 413 Interpretive Statements Atrial fibrillation with rapid ventricular response with premature ventricular or aberrantly conducted complexes Left axis deviation Low QRS complex voltage in the anterior leads Inferior infarct , age undetermined Anterior infarct , age undetermined Nonspecific ST-T wave abnormalities Baseline artifact Similar to tracing done 05-15-20 Electronically Signed on 08-26-2020 22:15:51 EDT by Mk Gilbert
[2020-08-27] MEDS ORDERED: SODIUM CHLORIDE 0.9% INJ 10 ML SYR IV SCH (09:00)
--- NOTE | 2020-08-27 11:21 | ED PDOC ---
Post-Departure Follow-Up ct abd/p faxd to dr monreal for fu Mihaela Lopez MD Aug 27, 2020 11:21
== END 2020-08-26 21:50 | disposition home or self-care (01) ==
LOC: M ED 13:39
DX: E83.51 Hypocalcemia (principal); T45.1X5A Adverse effect of antineoplastic and immunosuppressive drugs, initial encounter; K52.9 Noninfective gastroenteritis and colitis, unspecified; I48.91 Unspecified atrial fibrillation; C18.9 Malignant neoplasm of colon, unspecified; C78.7 Secondary malignant neoplasm of liver and intrahepatic bile duct; C78.01 Secondary malignant neoplasm of right lung; E27.9 Disorder of adrenal gland, unspecified; I11.0 Hypertensive heart disease with heart failure; I25.2 Old myocardial infarction; E03.9 Hypothyroidism, unspecified; I25.10 Atherosclerotic heart disease of native coronary artery without angina pectoris; Z90.710 Acquired absence of both cervix and uterus; Z79.01 Long term (current) use of anticoagulants; Z88.8 Allergy status to other drugs, medicaments and biological substances; Z79.899 Other long term (current) drug therapy
CPT/HCPCS: 74177; 80048; 80076; 82330; 83690; 85025; 93005; 96361; 96374; 96375; 99285; J1642; J2270; J2405; Q9967

== ENCOUNTER → 2020-09-17 | Outpatient (REF) | payer MEDICARE ==
[~2020-09-17] MED LIST changes: +DEXA2TA PO; +DIGO0.123 PO; +METO1TAB33 PO
[2020-09-17 12:56] LABS: HEMATOCRIT 34.4 % (36.0-47.0); MEAN CORPUSCULAR HEMOGLOBIN 29.9 pg (27.0-33.0); MEAN CORPUSCULAR VOLUME 93.5 fl (80.0-96.0); PLATELET COUNT, AUTOMATED 153 10^3/uL (150-450); RED BLOOD COUNT 3.68 10^6/uL (4.00-5.40)
[2020-09-17 13:41] LABS: ALT/SGPT 17 U/L (12-78); BILIRUBIN,TOTAL 1.5 MG/DL (0.2-1.0); BLOOD UREA NITROGEN 27 MG/DL (7-18); CALCIUM LEVEL 8.4 MG/DL (8.8-10.2); CARBON DIOXIDE LEVEL 27 MEQ/L (21-32); CHLORIDE LEVEL 107 MEQ/L (98-107); CREATININE FOR GFR 0.82 MG/DL (0.55-1.30); FERRITIN 244 NG/ML (8-252); FREE T4 1.27 NG/DL (0.76-1.46); GLOMERULAR FILTRATION RATE > 60.0 (>32); GLUCOSE, FASTING 179 MG/DL (70-100); IRON (FE) 128 UG/DL (50-170); PERCENT SATURATION 39.8 % (13.2-45.0); POTASSIUM SERUM 3.5 MEQ/L (3.5-5.1); SODIUM LEVEL 142 MEQ/L (136-145); TOTAL IRON BINDING CAPACITY 322 UG/DL (250-450); TOTAL PROTEIN 5.4 GM/DL (6.4-8.2)
[2020-09-17 13:58] LABS: WHITE BLOOD COUNT 0.9 10^3/uL (4.0-10.0)
== END ==
LOC: M SFHCADAM 10:54
PROVIDERS: ATTEND Family Medicine
DX: E03.9 Hypothyroidism, unspecified (principal); C18.9 Malignant neoplasm of colon, unspecified; D63.8 Anemia in other chronic diseases classified elsewhere; I47.1 Supraventricular tachycardia

== ENCOUNTER 2020-09-19 06:32 | Inpatient (IN) | payer MEDICARE ==
[2020-09-19] VITALS (38 sets, daily range): BP systolic 83–126; BP diastolic 46–74
[~2020-09-19] VITALS: Ht 157.5 cm; Wt 65.0 kg
[~2020-09-19 06:32] MED LIST changes: -METO1TAB33 PO
[2020-09-19] MEDS ORDERED: CEFEPIME HCL 2 GM in D5W MINI-BAG PLUS 50 ML IV ONE (07:05)
[2020-09-19] MEDS ORDERED: NS 1,840 ML in IV 1 EA IV ONE (07:05)
[2020-09-19] MEDS ORDERED: ACETAMINOPHEN 325 MG TAB PO ONE (07:10)
[2020-09-19 07:15] LABS: VENOUS BASE EXCESS -1.1 (-2.0-2.0); VENOUS HCO3 21.9 MEQ/L (23.0-27.0); VENOUS O2 SATURATION 92.4 % (60.0-80.0); VENOUS PARTIAL PRESSURE O2 65.7 mmHg (30.0-50.0); VENOUS PH 7.467 UNITS (7.330-7.430); VENOUS STANDARD HCO3 23.4 MEQ/L; VENOUS TOTAL CO2 22.9 MEQ/L (24.0-28.0)
[2020-09-19 07:17] LABS: BASO % 2.6 % (0.0-1.0); EOS % 1.3 % (0.0-3.0); HEMATOCRIT 31.7 % (36.0-47.0); HEMOGLOBIN 10.1 g/dl (12.0-15.5); LYMPH # 0.2 10^3/uL (1.5-5.0); LYMPH % 27.6 % (24.0-44.0); MEAN CORPUSCULAR HEMOGLOBIN 29.6 pg (27.0-33.0); MEAN CORPUSCULAR HGB CONC 31.9 g/dl (32.0-36.5); MONO # 0.2 10^3/uL (0.0-0.8); MONO % 23.7 % (2.0-8.0); NEUTROPHILS % 27.7 % (36.0-66.0); PLATELET COUNT, AUTOMATED 157 10^3/uL (150-450); RED BLOOD COUNT 3.41 10^6/uL (4.00-5.40)
[2020-09-19 07:19] LABS: NEUTROPHILS # 0.2 10^3/uL (1.5-8.5)
[2020-09-19 07:22] LABS: WHITE BLOOD COUNT 0.8 10^3/uL (4.0-10.0)
[2020-09-19 07:29] LABS: AMORPHOUS SEDIMENT SMALL (NEGATIVE); APPEARANCE, URINE HAZY (CLEAR); BACTERIA, URINE AUTO 1+ (NEGATIVE); BILIRUBIN, URINE AUTO NEGATIVE (NEGATIVE); BLOOD, URINE BLOOD NEGATIVE (NEGATIVE); COLOR, URINE YELLOW (YELLOW); GLUCOSE, URINE (UA) AUTO 2+ mg/dL (NEGATIVE); KETONE, URINE AUTO NEGATIVE (NEGATIVE); LEUKOCYTE ESTERASE, URINE AUTO NEGATIVE (NEGATIVE); MUCUS, URINE SMALL (NEGATIVE); NITRITE, URINE AUTO NEGATIVE (NEGATIVE); PROTEIN, URINE AUTO NEGATIVE (NEGATIVE); RBC, URINE AUTO 2 /HPF (0-3); SPECIFIC GRAVITY URINE AUTO 1.017 (1.002-1.035); SQUAMOUS EPITHELIAL CELL UR AU 1 /HPF (0-6); TRANSITIONAL EPITHELIAL AUTO 1 /HPF; WBC, URINE AUTO 2 /HPF (0-3)
[2020-09-19 07:35] LABS: INR 2.62; PARTIAL THROMBOPLASTIN TIME 28.6 SECONDS (25.9-37.0); PROTHROMBIN TIME 28.3 SECONDS (12.7-14.5)
[2020-09-19 07:58] LABS: ALBUMIN 2.5 GM/DL (3.2-5.2); ALT/SGPT 18 U/L (12-78); AMYLASE 29 U/L (25-115); BILIRUBIN,DIRECT 0.5 MG/DL (0.0-0.2); BLOOD UREA NITROGEN 27 MG/DL (7-18); C REACTIVE PROTEIN QUANTITATIV 4.55 MG/DL (0.00-0.30); CALCIUM LEVEL 8.3 MG/DL (8.8-10.2); CARBON DIOXIDE LEVEL 21 MEQ/L (21-32); CHLORIDE LEVEL 108 MEQ/L (98-107); CK-MB VALUE MASS < 1.0 NG/ML (<3.6); CPK CREATINE PHOSPHOKINASE 63 U/L (26-192); CREATININE FOR GFR 0.98 MG/DL (0.55-1.30); GLOMERULAR FILTRATION RATE 57.6 (>32); GLUCOSE, FASTING 134 MG/DL (70-100); MB/CK RELATIVE INDEX 1.59 (< OR =4); POTASSIUM SERUM 3.7 MEQ/L (3.5-5.1); SODIUM LEVEL 141 MEQ/L (136-145); TOTAL PROTEIN 4.5 GM/DL (6.4-8.2); TROPONIN I 0.05 NG/ML (< 0.10)
--- NOTE | 2020-09-19 08:14 | REP ---
INDICATION: SEPSIS/SHOCK. COMPARISON: Comparison chest x-ray April 08, 2020. TECHNIQUE: Portable upright AP chest radiograph. FINDINGS: A right-sided [id number] catheter is noted in place. A unipolar pacemaker is seen in the right heart view of the left side. EKG electrodes are noted. There are clips in right upper quadrant and a what appears to be a biliary stent is visible in the right upper quadrant. Cardiomegaly is observed unchanged. There is a mild dextroconvex curvature in the thoracic spine. The lungs are well inflated and clear. The pleural angles are sharp. Pulmonary vasculature is not increased. IMPRESSION: No acute infiltrate.. <Electronically signed by Bruce Avelar > 09/19/20 [id number]
[2020-09-19] MEDS ORDERED: METO1TAB33 PO (08:22)
[2020-09-19] MEDS ORDERED: TRAM50TA2 PO (08:22)
[2020-09-19] MEDS ORDERED: HOME MED LIST COMPLETE! XX SCH (08:25)
[2020-09-19] MEDS ORDERED: VANCOMYCIN HCL 1,000 MG, VIAL MATE ADAPTER 1 EACH in NS 250 ML IV SCH (08:55)
[2020-09-19] MEDS ORDERED: FILGRASTIM 480 MCG/0.8 ML SYRINGE (J1442) SC SCH (09:00)
[2020-09-19] MEDS ORDERED: DIGOXIN 0.125 MG TAB PO SCH (09:00)
[2020-09-19] MEDS ORDERED: VANCOMYCIN HCL 500 MG in D5W MINI-BAG PLUS 100 ML IV ONE (11:00)
[2020-09-19] MEDS ORDERED: ONDANSETRON 4MG/2ML VIAL IV PRN (11:35)
[2020-09-19] MEDS ORDERED: NOREPINEPHRINE BITARTRATE 8 MG in D5W 492 ML IV SCH (12:00)
[2020-09-19] MEDS ORDERED: VANCOMYCIN HCL 750 MG, VIAL MATE ADAPTER 1 EACH in NS 250 ML IV ONE (12:00)
[2020-09-19] MEDS: NOREPINEPHRINE BITARTRATE 8 MG in D5W 492 ML IV SCH (12:23)
--- NOTE | 2020-09-19 13:41 | HPEPDOC ---
General Date of Admission Sep 19, 2020 at 09:50 Date of Service: Sep 19, 2020 Chief Complaint The patient is a 85-year-old female admitted with a reason for visit of Neutropenic Fever,Sepsis. 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 Had routine lab work done on 09/17/2020 and found to be neutropenic for which she was given Neulasta on 09/18/2020. This morning she she was noted to have a fever of 102.7 at home so EMS was called. She complained of dizziness and weakness to the EMS. Daughter reported that patient has lost about 25 pounds in the past 6 weeks. Her overall appetite has been poor along with chronic diarrhea. Patient denied any cough or phlegm as per daughter she has some chronic cough which has not changed denied any abdominal pain nausea or vomiting she does have chronic diarrhea for years. Denied any skin rash or any skin breakdown or ulcers. In ED patient was febrile to 101, hypotensive with lowest being 71/42, labs were significant for a neutropenia of 0.9, lactic acidosis of 5.4. She also had mildly elevated bilirubins at 2.0, patient was given cefepime and started on sepsis protocol fluid loading. Patient was admitted for neutropenic fever and septic shock. Home Medications Scheduled Apixaban (Eliquis) 5 Mg Tablet, 5 MG PO BID, (Reported) Aspirin (Aspirin EC) 81 Mg Tab, 81 MG PO DAILY, (Reported) Atorvastatin Calcium (Atorvastatin Calcium) 40 Mg Tab, 40 MG PO DAILY, (Reported) Buspirone HCl (Buspirone HCl) 10 Mg Tab, 10 MG PO BID, (Reported) Cholecalciferol (Vitamin D3) (Vitamin D3) 1,000 Unit Tablet, 2,000 UNITS PO DAILY, (Reported) Dexamethasone (Dexamethasone) 2 Mg Tablet, 2 MG PO DAILY Digoxin (Digoxin) 125 Mcg Tablet, 125 MCG PO DAILY, (Reported) Ferrous Sulfate (Ferrous Sulfate) 325 Mg Tablet, 325 MG PO DAILY, (Reported) Furosemide (Furosemide) 40 Mg Tablet, 40 MG PO DAILY, (Reported) Levothyroxine Sodium (Synthroid) 88 Mcg Tablet, 88 MCG PO DAILY, (Reported) Magnesium Oxide (Magnesium Oxide) 400 Mg Tablet, 400 MG PO BID, (Reported) Metoprolol Succinate (Metoprolol Succinate) 100 Mg Tab.er.24h, 150 MG PO DAILY, (Reported) Omeprazole (Omeprazole) 40 Mg Capsule.dr, 40 MG PO DAILY, (Reported) Spironolactone (Spironolactone) 25 Mg Tablet, 12.5 MG PO DAILY, (Reported) Scheduled PRN Acetaminophen (Tylenol) 325 Mg Tablet, 650 MG PO QID PRN for PAIN / FEVER, (Reported) Loperamide HCl (Imodium A-D) 2 Mg Tablet, 2 MG PO PRN PRN for DIARRHEA, (Reported) Lorazepam (Ativan) 0.5 Mg Tablet, 0.5 MG PO Q4HP PRN for ANXIETY/AGITATION, (Reported) Nitroglycerin (Nitrostat) 0.4 Mg Subl, 0.4 MG SL NITRO PRN for CHEST PAIN, (Reported) Ondansetron HCl (Ondansetron HCl) 8 Mg Tablet, 8 MG PO Q12HP PRN for NAUSEA OR VOMITING Prochlorperazine Maleate (Prochlorperazine Maleate) 10 Mg Tablet, 10 MG PO Q6H PRN for NAUSEA OR VOMITING Tramadol HCl (Tramadol HCl) 50 Mg Tablet, 50 MG PO BID PRN for PAIN LEVEL 4-7, (Reported) Allergies Coded Allergies: albuterol (Verified Allergy, Severe, Shortness of breath, 05/04/18) ipratropium (Verified Allergy, Severe, Shortness of breath, 05/04/18) Past Medical History Medical History Recurrent Colon cancer with mets to liver and lungs on chemo and had SBRT to liver December 2017. Colon cancer in the 1980s status post surgical resection with no adjuvant therapy. 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 Recurrent Colon ca in 2018 with mets. . Chronic diarrhea Pancytopenia CAD/history of [place]/stent placement 2013/ischemic cardiomyopathy, EF 35%/ICD 06/21 History of pericardial effusion status post pericardial window History of biliary stones status post ERCP/stent 03/26, 09/25 PAF on Eliquis Hypertension Hypothyroid Gastritis/history of PUD/history of esophageal stricture Vitamin D deficiency Benign positional vertigo/Mnire's Osteoarthritis Diverticulosis Degenerative disc disease Anxiety Hypomagnesemia, chronic. Surgical History Left Colon resection in 1979 LAR in 2013 Cholecystectomy Hysterectomy with BSO. Cardiac stent placement 2013 AICD placement 2013 Chemo-Port placed ERCP and biliary stent placement Pericardial window creation Esophageal dilatation for stricture Family History Her mother had a gynecological cancer. Her father had lung cancer. A brother had lung cancer and esophageal cancer. A sister had pancreatic cancer. Social History * Smoker: Denies Alcohol: Denies Drugs: denies A-FIB/CHADSVASC A-FIB History Current/History of A-Fib/PAF?: Yes Current PO Anticoag Therapy: Yes Review of Systems Constitutional: Reports: Fever, Malaise, Fatigue, Weight Loss Eyes: Denies: Pain, Vision change ENT: Denies: Head Aches, Ear Pain, Dysphagia Skin: Denies: Rash, Lesions, Breakdown Pulmonary: Denies: Dyspnea, Cough Cardiovascular: Reports: Lt Headedness; Denies: Chest Pain, Palpitations, Orthopnea, Paroxysmal Noc. Dyspnea Gastrointestinal: Reports: Diarrhea; Denies: Nausea, Vomiting, Abdominal Pain Genitourinary: Denies: Dysuria, Frequency, Incontinence, Retention Hematologic: Denies: Bruising, Bleeding Excessively Neurological: Reports: Weakness (Generalized); Denies: Numbness, Change in speech, Confusion Physical Examination General Exam: Positive: Alert, Cooperative, No Acute Distress Eye Exam: Positive: PERRLA, Conjunctiva & lids normal, EOMI, Sclera icteric ENT Exam: Positive: Atraumatic, Pharynx Normal, Other ENT (Dry mucous membranes) Neck Exam: Positive: Supple; Negative: JVD, thyromegaly Chest Exam: Positive: Clear to auscultation, Normal air movement Heart Exam: Positive: Tachycardic, Irregular Rhythm, Normal S1, Normal S2; Negative: Murmurs, Rubs Telemetry: Positive: Atrial fibrillation Abdomen Exam: Positive: Normal bowel sounds, Soft; Negative: Tenderness Extremity Exam: Negative: Clubbing, Cyanosis, Edema Skin Exam: Positive: Nl turgor and temperature; Negative: Breakdown, Lesion Psych Exam: Positive: Memory Intact, Oriented x 3 Vital Signs Vital Signs Date Time Temp Pulse Resp B/P (MAP) Pulse Ox O2 Delivery O2 Flow Rate FiO2 09/19/20 12:35 117/60 (79) 09/19/20 12:32 77 98 09/19/20 11:17 16 09/19/20 09:29 Room Air 09/19/20 08:59 97.4 Laboratory Data Labs 24H Laboratory Tests 2 09/19/20 07:08: Immature Granulocyte % (Auto) 17.1H, Neutrophils (%) (Auto) 27.7L, Lymphocytes (%) (Auto) 27.6, Monocytes (%) (Auto) 23.7H, Eosinophils (%) (Auto) 1.3, Basophils (%) (Auto) 2.6H, Neutrophils # (Auto) 0.2L, Lymphocytes # (Auto) 0.2L, Monocytes # (Auto) 0.2, Eosinophils # (Auto) 0.0, Basophils # (Auto) 0.0, Nucleated Red Blood Cells % (auto) 28.9H, Prothrombin Time 28.3H, Prothromb Time International Ratio 2.62, Activated Partial Thromboplast Time 28.6, Urine Color YELLOW, Urine Appearance HAZY, Urine pH 5.0, Urine Specific [place] 1.017, Urine Protein NEGATIVE, Urine Glucose (Auto)(UA) 2+H, Urine Ketones (Auto) NEGATIVE, Urine Blood NEGATIVE, Urine Nitrite NEGATIVE, Urine Bilirubin NEGATIVE, Urine Urobilinogen 2.0H, Urine Leukocyte Esterase (Auto) NEGATIVE, Urine WBC (Auto) 2, Urine RBC (Auto) 2, Urine Hyaline Casts (Auto) 0, Urine Bacteria (Auto) 1+H, Urine Squamous Epithelial Cells 1, Urine Transitional Epithelial Cells 1, Urine Amorphous Sediment (Auto) SMALLH, Urine Mucus (Auto) SMALL, Urine Sperm (Auto) , Blood Gas Bicarbonate Standard 23.4, Venous Blood pH 7.467H, Venous Blood Partial Pressure CO2 31.0L, Venous Blood Partial Pressure O2 65.7H, Venous Blood Total Carbon Dioxide 22.9L, Venous Blood HCO3 21.9L, Venous Blood Oxygen Saturation 92.4H, Venous Blood Base Excess -1.1, Anion Gap 12, Glomerular Filtration Rate 57.6, Lactic Acid Level 5.4*H, Calcium Level 8.3L, Total Bilirubin 2.0H, Direct Bilirubin 0.5H, Aspartate Amino Transf (AST/SGOT) 29, Alanine Aminotransferase (ALT/SGPT) 18, Alkaline Phosphatase 58, Total Creatine Kinase 63, Creatine Kinase MB < 1.0, Creatine Kinase MB Relative Index 1.59, Troponin I 0.05, C-Reactive Protein, Quantitative 4.55H, Total Protein 4.5L, Albumin 2.5L, Albumin/Globulin Ratio 1.3, Amylase Level 29 09/19/20 09:39: Methicillin-Resist S.aureus DNA PCR NOT DETECTED 09/19/20 11:36: Lactic Acid Followup at 4 Hours 4.7*H CBC/BMP Laboratory Tests 09/19/20 07:08 Microbiology Microbiology 09/19/20 Urine Culture, Received Pending 09/19/20 Respiratory Virus Panel (PCR) (MANNY) - Final, Complete 09/19/20 Blood Culture, Received Pending 09/19/20 Blood Culture, Received Pending Assessment/Plan 85 year old female with 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 currently on 5-fluorouracil every 2 weeks, with h/o extensive bowel resection and chronic diarrhea , paroxysmal Afib on eliquis, CAD status post stents, ischemic cardiomyopathy, 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 Had routine lab work done on 09/17/2020 and found to be neutropenic for which she was given Neulasta on 09/18/2020. This morning she she was noted to have a fever of 102.7 at home so EMS was called. She complained of dizziness and weakness to the EMS. Daughter also reported that patient has lost about 25 pounds of weight in the past 6 weeks. Her overall appetite has been poor along with chronic diarrhea. In ED patient was febrile to 101, hypotensive with lowest being 71/42, labs were significant for a neutropenia of 0.9, lactic acidosis of 5.4. She also had mildly elevated bilirubins at 2.0, patient was given cefepime and started on sepsis protocol fluid loading. Patient was admitted for neutropenic fever and septic shock. Neutropenic fever As per Dr. Ross patient has never been neutropenic on 5 fluorouracil so this neutropenia could be due to sepsis. Will cover with cefepime and vancomycin Cultures have been sent Received Neulasta on 09/17/2020 so will not give any Neupogen today. Septic shock Patient received the sepsis protocol loading dose of IV fluids and also extra fluids without any improvement in blood pressure so was started on Levophed with good response Continue IV fluids Lactic acidosis Due to septic shock Continue IV fluids and Levophed Systolic and diastolic CHF exacerbation/ AICD in place ischemic cardiomyopathy. EF of 35% to 40% We will hold diuretics PAF on Eliquis Currently patient is in A. fib with rate around 100 210 Will continue digoxin for rate control. Will not give metoprolol as blood pressure is low Will continue Recurrent colon cancer with mets to liver and lungs in 2018 on chemotherapy (Third recurrence first had it in 1979) H/o Colon cancer in the status post surgical resection with no adjuvant therapy. 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 Now on maintenance chemotherapy. As per Dr. Ross there has been progress in the cancer and her prognosis is poor. Dr. Ross discussed CODE STATUS with the daughter. As per daughter patient wanted to be full code. Chronic diarrhea from extensive colon resection imodium prn CAD/history of [place]/stent placement 2013/ischemic cardiomyopathy, EF 35%/ICD /14 On statin, eliquis History of hypertension Now patient is in septic shock We will hold all antihypertensives Hypothyroid Continue synthroid Gastritis/history of PUD/history of esophageal stricture/ Hiatal hernia Continue PPI Anxiety buspirone Hypomagnesemia, chronic continue supplement History of pericardial effusion status post pericardial window History of biliary stones status post ERCP/stent 03/26, 09/25 Vitamin D deficiency Benign positional vertigo/Mnire's Plan / VTE VTE Prophylaxis Ordered?: Yes HAI BAXTER MD Sep 19, 2020 13:40
[2020-09-19] MEDS: LEVOTHYROXINE 88MCG TABLET (0.088 MG) PO SCH (14:57)
[2020-09-19] MEDS: MAGNESIUM OXIDE 400MG TAB (MAG-OX) PO SCH ×2 (15:00→20:21)
[2020-09-19] MEDS: APIXABAN 5 MG TAB (ELIQUIS) PO SCH ×2 (15:00→20:21)
[2020-09-19] MEDS: busPIRone 10 MG TAB PO SCH ×2 (15:00→20:20)
[2020-09-19] MEDS: ASPIRIN 81MG ENTERIC TABLET PO SCH (15:29)
[2020-09-19] MEDS: NS 1,000 ML IV SCH (15:30)
[2020-09-19] MEDS: PANTOPRAZOLE 40MG VIAL (C9113 PER 1) IV SCH (15:30)
[2020-09-19] MEDS: CEFEPIME HCL 2 GM in D5W MINI-BAG PLUS 50 ML IV SCH (20:21)
--- NOTE | 2020-09-19 20:50 | ECGEPIP ---
[facility] - ED Test Date: 2020-09-19 Pat Name: NICA ARAUJO Department: Room: - Gender: Female Health Care Facility Administrator: RAMONA : 1935 Requested By: Tuyet Jones Order Number: [id number] Reading MD: Mk Gilbert Measurements Intervals [place] Rate: 97 P: [place]: QRS: -50 QRSD: 78 T: 152 QT: 308 QTc: 391 Interpretive Statements Atrial fibrillation with premature ventricular or aberrantly conducted complexes Left axis deviation Inferior infarct , age undetermined Low QRS complex voltage in the limb leads Nonspecific ST-T wave abnormalities Similar to tracing done 08-26-20 Electronically Signed on 09-19-2020 20:50:37 EDT by Mk Gilbert
[2020-09-20] VITALS (75 sets, daily range): BP systolic 72–131; BP diastolic 39–83
[2020-09-20] MEDS: NS 1,000 ML IV SCH (02:06)
[2020-09-20] MEDS: LEVOTHYROXINE 88MCG TABLET (0.088 MG) PO SCH (05:26)
[2020-09-20] MEDS: NOREPINEPHRINE BITARTRATE 8 MG in D5W 492 ML IV SCH (07:20)
[2020-09-20 07:45] LABS: BLOOD UREA NITROGEN 23 MG/DL (7-18); CALCIUM LEVEL 7.6 MG/DL (8.8-10.2); CARBON DIOXIDE LEVEL 23 MEQ/L (21-32); CHLORIDE LEVEL 115 MEQ/L (98-107); CREATININE FOR GFR 0.66 MG/DL (0.55-1.30); DIGOXIN LEVEL 1.6 NG/ML (0.5-2.0); GLOMERULAR FILTRATION RATE > 60.0 (>32); GLUCOSE, FASTING 136 MG/DL (70-100); POTASSIUM SERUM 3.5 MEQ/L (3.5-5.1); SODIUM LEVEL 147 MEQ/L (136-145); VANCOMYCIN RANDOM 7.8 UG/ML
[2020-09-20] MEDS ORDERED: VANCOMYCIN HCL 1,000 MG, VIAL MATE ADAPTER 1 EACH in NS 250 ML IV SCH (08:00)
[2020-09-20 08:05] LABS: HEMATOCRIT 30.5 % (36.0-47.0); HEMOGLOBIN 9.7 g/dl (12.0-15.5); MEAN CORPUSCULAR HEMOGLOBIN 29.7 pg (27.0-33.0); MEAN CORPUSCULAR HGB CONC 31.8 g/dl (32.0-36.5); MEAN CORPUSCULAR VOLUME 93.3 fl (80.0-96.0); PLATELET COUNT, AUTOMATED 153 10^3/uL (150-450); RED BLOOD COUNT 3.27 10^6/uL (4.00-5.40); WHITE BLOOD COUNT 8.6 10^3/uL (4.0-10.0)
[2020-09-20] MEDS: ASPIRIN 81MG ENTERIC TABLET PO SCH (08:28)
[2020-09-20] MEDS: busPIRone 10 MG TAB PO SCH ×2 (08:28→21:00)
[2020-09-20] MEDS: MAGNESIUM OXIDE 400MG TAB (MAG-OX) PO SCH ×3 (08:29→21:11)
[2020-09-20] MEDS: CEFEPIME HCL 2 GM in D5W MINI-BAG PLUS 50 ML IV SCH ×2 (08:29→21:11)
[2020-09-20] MEDS: APIXABAN 5 MG TAB (ELIQUIS) PO SCH ×2 (08:29→21:11)
[2020-09-20] MEDS: PANTOPRAZOLE 40MG VIAL (C9113 PER 1) IV SCH (08:29)
[2020-09-20 08:59] LABS: ATYPICAL LYMPH 2 % (0-5); LYMPHOCYTES 13 % (16-44); METAMYELOCYTES 1 % (0-0); MONOCYTES 2 % (0-5); MYELOCYTES 1 % (0-0); NEUTROPHILS 54 % (28-66)
[2020-09-20 09:06] LABS: ANISOCYTOSIS 1+; PLATELET ESTIMATE NORMAL (NORMAL); TOXIC GRANULATION 1+
--- NOTE | 2020-09-20 11:19 | IPNPDOC ---
Subjective Date Seen The patient was seen on 09/20/20. Subjective Chief Complaint/HPI Was bradycardic to 35 at night though she has a AICD/ pacemaker in place. Will have to interrogate it. Objective Physical Examination General Exam: Positive: Alert, Cooperative, No Acute Distress Eye Exam: Positive: PERRLA, Conjunctiva & lids normal, EOMI, Sclera icteric ENT Exam: Positive: Atraumatic, Pharynx Normal, Other ENT (Dry mucous membranes) Neck Exam: Positive: Supple; Negative: JVD, thyromegaly Chest Exam: Positive: Clear to auscultation, Normal air movement Heart Exam: Positive: Tachycardic, Irregular Rhythm, Normal S1, Normal S2; Negative: Murmurs, Rubs Telemetry: Positive: Atrial fibrillation Abdomen Exam: Positive: Normal bowel sounds, Soft; Negative: Tenderness Extremity Exam: Positive: Edema (1+); Negative: Clubbing, Cyanosis Skin Exam: Positive: Nl turgor and temperature; Negative: Breakdown, Lesion Psych Exam: Positive: Memory Intact, Oriented x 3 Assessment /Plan Assessment 85 year old female with 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 currently on 5-fluorouracil every 2 weeks, with h/o extensive bowel resection and chronic diarrhea , paroxysmal Afib on eliquis, CAD status post stents, ischemic cardiomyopathy, 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 Had routine lab work done on 09/17/2020 and found to be neutropenic for which she was given Neulasta on 09/18/2020. This morning she she was noted to have a fever of 102.7 at home so EMS was called. She complained of dizziness and weakness to the EMS. Daughter also reported that patient has lost about 25 pounds of weight in the past 6 weeks. Her overall appetite has been poor along with chronic diarrhea. In ED patient was febrile to 101, hypotensive with lowest being 71/42, labs were significant for a neutropenia of 0.9, lactic acidosis of 5.4. She also had mildly elevated bilirubins at 2.0, patient was given cefepime and started on sepsis protocol fluid loading. Patient was admitted for neutropenic fever and septic shock. Neutropenic fever As per Dr. Ross patient has never been neutropenic on 5 fluorouracil so this neutropenia could be due to sepsis. Cultures positive for gram negative rods. will dc vancomycin. Received Neulasta on 09/17/2020 Gram negative Septic shock will continue only on Levophed to maintain BP. Received adequate fluid resuscitation. Will have to be careful about further flu ids due to low EF. Gram negative bacteremia 2/2 blood cultures positive continue cefepime Lactic acidosis Due to septic shock Systolic and diastolic CHF exacerbation/ AICD in place ischemic cardiomyopathy. EF of 35% to 40% We will hold diuretics PAF on Eliquis Will continue digoxin for rate control with hold parameters. Will not give metoprolol as blood pressure is low Recurrent colon cancer with mets to liver and lungs in 2018 on chemotherapy (Third recurrence first had it in 1979) H/o Colon cancer in the status post surgical resection with no adjuvant therapy. 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 Now on maintenance chemotherapy. As per Dr. Ross there has been progress in the cancer and her prognosis is poor. Dr. Ross discussed CODE STATUS with the daughter. As per daughter patient wanted to be full code. Chronic diarrhea from extensive colon resection imodium prn CAD/history of NV/stent placement 2013/ischemic cardiomyopathy, EF 35%/ICD 06/21 On statin, eliquis History of hypertension Now patient is in septic shock We will hold all antihypertensives Hypothyroid Continue synthroid Gastritis/history of PUD/history of esophageal stricture/ Hiatal hernia Continue PPI Anxiety buspirone Hypomagnesemia, chronic continue supplement History of pericardial effusion status post pericardial window History of biliary stones status post ERCP/stent 03/26, 09/25 Vitamin D deficiency Benign positional vertigo/Mnire's Plan/VTE VTE Prophylaxis Ordered?: Yes VS, I&O, 24H, Fishbone Vital Signs/I&O Vital Signs Date Time Temp Pulse Resp B/P (MAP) Pulse Ox O2 Delivery O2 Flow Rate FiO2 09/20/20 06:00 61 93/51 (65) 97 Room Air 09/20/20 05:30 1.0 09/20/20 04:00 99.0 21 I&O- Last 24 Hours up to 6 AM 09/20/20 06:00 Intake Total 4238.3 ml Output Total 850 ml Balance 3388.3 ml Laboratory Data 24H LABS Laboratory Tests 2 09/19/20 09:39: Methicillin-Resist S.aureus DNA PCR NOT DETECTED 09/19/20 11:36: Lactic Acid Followup at 4 Hours 4.7*H 09/20/20 06:49: CBC/BMP Microbiology Microbiology 09/19/20 Urine Culture, Received Pending 09/19/20 Respiratory Virus Panel (PCR) ([facility]) - Final, Complete 09/19/20 Blood Culture - Preliminary, Resulted 09/19/20 Blood Culture - Preliminary, Resulted HAI BAXTER MD Sep 20, 2020 07:24
[2020-09-20] MEDS ORDERED: NS 500 ML IV ONE (14:05)
[2020-09-21] VITALS (92 sets, daily range): BP systolic 71–142; BP diastolic 40–69
[2020-09-21] MEDS ORDERED: NS 500 ML IV ONE (01:15)
[2020-09-21] MEDS: LEVOTHYROXINE 88MCG TABLET (0.088 MG) PO SCH (06:15)
[2020-09-21] MEDS: CEFEPIME HCL 2 GM in D5W MINI-BAG PLUS 50 ML IV SCH ×2 (07:44→19:49)
[2020-09-21] MEDS: ASPIRIN 81MG ENTERIC TABLET PO SCH (08:21)
[2020-09-21] MEDS: busPIRone 10 MG TAB PO SCH ×2 (08:21→20:59)
[2020-09-21] MEDS: PANTOPRAZOLE 40MG VIAL (C9113 PER 1) IV SCH (08:22)
[2020-09-21] MEDS: APIXABAN 5 MG TAB (ELIQUIS) PO SCH ×2 (08:22→20:59)
[2020-09-21] MEDS: MAGNESIUM OXIDE 400MG TAB (MAG-OX) PO SCH ×2 (08:22→20:59)
[2020-09-21 08:58] LABS: HEMATOCRIT 33.7 % (36.0-47.0); HEMOGLOBIN 10.5 g/dl (12.0-15.5); MEAN CORPUSCULAR HEMOGLOBIN 29.4 pg (27.0-33.0); MEAN CORPUSCULAR HGB CONC 31.2 g/dl (32.0-36.5); MEAN CORPUSCULAR VOLUME 94.4 fl (80.0-96.0); PLATELET COUNT, AUTOMATED 123 10^3/uL (150-450); RED BLOOD COUNT 3.57 10^6/uL (4.00-5.40)
[2020-09-21 09:04] LABS: WHITE BLOOD COUNT 21.3 10^3/uL (4.0-10.0)
[2020-09-21 09:22] LABS: BLOOD UREA NITROGEN 15 MG/DL (7-18); CALCIUM LEVEL 7.8 MG/DL (8.8-10.2); CARBON DIOXIDE LEVEL 21 MEQ/L (21-32); CHLORIDE LEVEL 114 MEQ/L (98-107); CREATININE FOR GFR 0.62 MG/DL (0.55-1.30); GLOMERULAR FILTRATION RATE > 60.0 (>32); GLUCOSE, FASTING 126 MG/DL (70-100); POTASSIUM SERUM 4.1 MEQ/L (3.5-5.1); SODIUM LEVEL 144 MEQ/L (136-145)
[2020-09-21 09:24] LABS: ATYPICAL LYMPH 9 % (0-5); EOSINOPHILS 1 % (0-3); LYMPHOCYTES 8 % (16-44); MONOCYTES 12 % (0-5); NEUTROPHILS 42 % (28-66); NUCLEATED RED BLOOD CELL 12 % (0-0)
[2020-09-21 09:25] LABS: ANISOCYTOSIS 2+; PLATELET ESTIMATE DECREASED (NORMAL)
[2020-09-21 09:26] LABS: HYPOCHROMASIA 1+; SPHEROCYTES 1+
[2020-09-21] MEDS: DIGOXIN 0.125 MG TAB PO SCH (09:53)
[2020-09-21] MEDS: NOREPINEPHRINE BITARTRATE 8 MG in D5W 492 ML IV SCH (10:58)
[2020-09-21] MEDS ORDERED: NOREPINEPHRINE BITARTRATE 8 MG in D5W 492 ML IV SCH (11:00)
--- NOTE | 2020-09-21 11:47 | IPNPDOC ---
Subjective Date Seen The patient was seen on 09/21/20. Subjective Chief Complaint/HPI Patient does not offer any complaints this morning. Says her appetite is okay and she did have breakfast. She is in A. fib with RVR however does not complain of any palpitation or chest pain or shortness of breath. She remains on Levophed. Blood cultures grew Klebsiella Objective Physical Examination General Exam: Positive: Alert, Cooperative, No Acute Distress Eye Exam: Positive: PERRLA, Conjunctiva & lids normal, EOMI, Sclera icteric ENT Exam: Positive: Atraumatic, Pharynx Normal, Other ENT (Dry mucous membranes) Neck Exam: Positive: Supple; Negative: JVD, thyromegaly Chest Exam: Positive: Clear to auscultation, Normal air movement Heart Exam: Positive: Tachycardic, Irregular Rhythm, Normal S1, Normal S2; Negative: Murmurs, Rubs Telemetry: Positive: Atrial fibrillation Abdomen Exam: Positive: Normal bowel sounds, Soft; Negative: Tenderness Extremity Exam: Positive: Edema (1+); Negative: Clubbing, Cyanosis Skin Exam: Positive: Nl turgor and temperature; Negative: Breakdown, Lesion Psych Exam: Positive: Memory Intact, Oriented x 3 Assessment /Plan Assessment 85 year old female with 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 currently on 5-fluorouracil every 2 weeks, with h/o extensive bowel resection and chronic diarrhea , paroxysmal Afib on eliquis, CAD status post stents, ischemic cardiomyopathy, 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 Had routine lab work done on 09/17/2020 and found to be neutropenic for which she was given Neulasta on 09/18/2020. This morning she she was noted to have a fever of 102.7 at home so EMS was called. She complained of dizziness and weakness to the EMS. Daughter also reported that patient has lost about 25 pounds of weight in the past 6 weeks. Her overall appetite has been poor along with chronic diarrhea. In ED patient was febrile to 101, hypotensive with lowest being 71/42, labs were significant for a neutropenia of 0.9, lactic acidosis of 5.4. She also had mildly elevated bilirubins at 2.0, patient was given cefepime and started on sepsis protocol fluid loading. Patient was admitted for neutropenic fever and septic shock. Gram negative bacteremia with Septic shock 2/2 blood cultures positive for Klebsiella continue cefepime will continue on Levophed to maintain BP. Received adequate fluid resuscitation. Will have to be careful about further fluids due to low EF. Neutropenia now resolved. Received Neulasta on 09/18/20, WBC up to 21K Lactic acidosis Due to septic shock PAF on Eliquis Patient now in afib with rvr. Will resume digoxin for rate control with hold parameters. Not able to give metoprolol as blood pressures are low Systolic and diastolic CHF exacerbation/ AICD in place ischemic cardiomyopathy. EF of 35% to 40% We will hold diuretics Will get new echo. Recurrent colon cancer with mets to liver and lungs in 2018 on chemotherapy (Third recurrence first had it in 1979) H/o Colon cancer in the status post surgical resection with no adjuvant therapy. 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 Now on maintenance chemotherapy. As per Dr. Ross there has been progress in the cancer and her prognosis is poor. Dr. Ross discussed CODE STATUS with the daughter. As per daughter patient wanted to be full code. Chronic diarrhea from extensive colon resection imodium prn CAD/history of [place]/stent placement 2013/ischemic cardiomyopathy, EF 35%/ICD /14 On statin, eliquis History of hypertension Now patient is in septic shock We will hold all antihypertensives Hypothyroid Continue synthroid Gastritis/history of PUD/history of esophageal stricture/ Hiatal hernia Continue PPI Anxiety buspirone Hypomagnesemia, chronic continue supplement History of pericardial effusion status post pericardial window History of biliary stones status post ERCP/stent 03/26, 09/25 Vitamin D deficiency Benign positional vertigo/Mnire's Plan/VTE VTE Prophylaxis Ordered?: Yes VS, I&O, 24H, Fishbone Vital Signs/I&O Vital Signs Date Time Temp Pulse Resp B/P (MAP) Pulse Ox O2 Delivery O2 Flow Rate FiO2 09/21/20 10:58 75/52 09/21/20 09:53 144 09/21/20 06:00 98 Room Air 09/21/20 04:00 97.6 20 09/20/20 05:30 1.0 I&O- Last 24 Hours up to 6 AM 09/21/20 05:59 Intake Total 2856.2 ml Output Total 1100 ml Balance 1756.2 ml Laboratory Data 24H LABS Laboratory Tests 2 09/20/20 12:23: Lactic Acid Followup at 4 Hours 4.9*H 09/21/20 08:45: Neutrophils (%) (Auto) , Nucleated Red Blood Cells % (auto) 0.3H, Neutrophils 42, Band Neutrophils 28H, Lymphocytes (Manual) 8L, Monocytes (Manual) 12H, Eosinophils (Manual) 1, Atypical Lymphocytes 9H, Nucleated Red Blood Cells 12H, Hypochromasia 1+, Anisocytosis 2+, Spherocytes 1+, Platelet Estimate DECREASED, Anion Gap 9, Glomerular Filtration Rate > 60.0, Lactic Acid Level 4.0*H, Calcium Level 7.8L CBC/BMP Laboratory Tests 09/21/20 08:45 Microbiology Microbiology 09/20/20 Blood Culture - Preliminary, Resulted No growth after 24 hours . All specim... 09/20/20 Blood Culture - Preliminary, Resulted No growth after 24 hours . All specim... 09/19/20 Urine Culture - Final, Complete 09/19/20 Respiratory Virus Panel (PCR) (MAN[facility]) - Final, Complete 09/19/20 Blood Culture - Final, Complete Klebsiella Pneumoniae 09/19/20 Blood Culture - Final, Complete Klebsiella Pneumoniae HAI BAXTER MD Sep 21, 2020 11:47
--- NOTE | 2020-09-21 14:42 | ECGEPIP ---
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 Left axis deviation Low voltage QRS Inferior infarct , age undetermined Poor R-wave progression Cannot rule out old Anteroseptal infarct. No significant change compared with 09/19/2020. Electronically Signed on 09-21-2020 14:41:52 EDT by Mk Rodriguez
[2020-09-21] MEDS ORDERED: DIGOXIN INJ 0.5 MG/2 ML AMP (J1160) IV ONE (19:25)
[2020-09-22] VITALS (27 sets, daily range): BP systolic 94–133; BP diastolic 48–69
[2020-09-22] MEDS: LEVOTHYROXINE 88MCG TABLET (0.088 MG) PO SCH (05:19)
[2020-09-22 05:42] LABS: HEMATOCRIT 29.1 % (36.0-47.0); HEMOGLOBIN 9.4 g/dl (12.0-15.5); MEAN CORPUSCULAR HEMOGLOBIN 29.7 pg (27.0-33.0); MEAN CORPUSCULAR HGB CONC 32.3 g/dl (32.0-36.5); MEAN CORPUSCULAR VOLUME 91.8 fl (80.0-96.0); PLATELET COUNT, AUTOMATED 119 10^3/uL (150-450); RED BLOOD COUNT 3.17 10^6/uL (4.00-5.40)
[2020-09-22 05:44] LABS: WHITE BLOOD COUNT 25.1 10^3/uL (4.0-10.0)
[2020-09-22 06:08] LABS: BLOOD UREA NITROGEN 15 MG/DL (7-18); CARBON DIOXIDE LEVEL 23 MEQ/L (21-32); CHLORIDE LEVEL 112 MEQ/L (98-107); CREATININE FOR GFR 0.63 MG/DL (0.55-1.30); GLOMERULAR FILTRATION RATE > 60.0 (>32); GLUCOSE, FASTING 108 MG/DL (70-100); POTASSIUM SERUM 3.3 MEQ/L (3.5-5.1); SODIUM LEVEL 143 MEQ/L (136-145)
[2020-09-22 06:23] LABS: ANISOCYTOSIS 2+; EOSINOPHILS 1 % (0-3); LYMPHOCYTES 5 % (16-44); MONOCYTES 3 % (0-5); MYELOCYTES 1 % (0-0); NEUTROPHILS 72 % (28-66); PLATELET ESTIMATE DECREASED (NORMAL)
[2020-09-22] MEDS ORDERED: POTASSIUM CHLORIDE 10 MEQ SR TABLET PO ONE ×2 (06:35→08:00)
[2020-09-22] MEDS: ASPIRIN 81MG ENTERIC TABLET PO SCH (09:23)
[2020-09-22] MEDS: MAGNESIUM OXIDE 400MG TAB (MAG-OX) PO SCH ×2 (09:23→20:35)
[2020-09-22] MEDS: APIXABAN 5 MG TAB (ELIQUIS) PO SCH ×2 (09:23→20:35)
[2020-09-22] MEDS: PANTOPRAZOLE 40MG TAB (PROTONIX) PO SCH (09:23)
[2020-09-22] MEDS: busPIRone 10 MG TAB PO SCH ×2 (09:24→20:35)
[2020-09-22] MEDS: DIGOXIN 0.125 MG TAB PO SCH (09:24)
[2020-09-22] MEDS: CEFEPIME HCL 2 GM in D5W MINI-BAG PLUS 50 ML IV SCH ×2 (10:55→20:36)
--- NOTE | 2020-09-22 11:15 | IPNPDOC ---
Subjective Date Seen The patient was seen on 09/22/20. Subjective Chief Complaint/HPI No complaints this morning, reports has good appetite and ate breakfast, has been off Levophed since last night. Remains in A. fib with pulse rate varying from 90s to 130s Objective Physical Examination General Exam: Positive: Alert, Cooperative, No Acute Distress Eye Exam: Positive: PERRLA, Conjunctiva & lids normal, EOMI, Sclera icteric ENT Exam: Positive: Atraumatic, Pharynx Normal, Other ENT (Dry mucous membranes) Neck Exam: Positive: Supple; Negative: JVD, thyromegaly Chest Exam: Positive: Clear to auscultation, Normal air movement Heart Exam: Positive: Tachycardic, Irregular Rhythm, Normal S1, Normal S2; Negative: Murmurs, Rubs Telemetry: Positive: Atrial fibrillation Abdomen Exam: Positive: Normal bowel sounds, Soft; Negative: Tenderness Extremity Exam: Positive: Edema (1+); Negative: Clubbing, Cyanosis Skin Exam: Positive: Nl turgor and temperature; Negative: Breakdown, Lesion Psych Exam: Positive: Memory Intact, Oriented x 3 Assessment /Plan Assessment 85 year old female with 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 currently on 5-fluorouracil every 2 weeks, with h/o extensive bowel resection and chronic diarrhea , paroxysmal Afib on eliquis, CAD status post stents, ischemic cardiomyopathy, 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 Had routine lab work done on 09/17/2020 and found to be neutropenic for which she was given Neulasta on 09/18/2020. This morning she she was noted to have a fever of 102.7 at home so EMS was called. She complained of dizziness and weakness to the EMS. Daughter also reported that patient has lost about 25 pounds of weight in the past 6 weeks. Her overall appetite has been poor along with chronic diarrhea. In ED patient was febrile to 101, hypotensive with lowest being 71/42, labs were significant for a neutropenia of 0.9, lactic acidosis of 5.4. She also had mildly elevated bilirubins at 2.0, patient was given cefepime and started on sepsis protocol fluid loading. Patient was admitted for neutropenic fever and septic shock. Gram negative bacteremia with Septic shock 2/2 blood cultures positive for Klebsiella continue cefepime Off levophed now. Neutropenia now resolved. Received Neulasta on 09/18/20, WBC up to 21K Lactic acidosis Due to septic shock PAF on Eliquis Patient now in afib with rvr. Will resume digoxin for rate control with hold parameters. Not able to give metoprolol as blood pressures are low Systolic and diastolic CHF exacerbation/ AICD in place ischemic cardiomyopathy. EF of 35% to 40% We will hold diuretics Will get new echo. Recurrent colon cancer with mets to liver and lungs in 2017 on chemotherapy (Third recurrence first had it in 1979) H/o Colon cancer in the status post surgical resection with no adjuvant therapy. 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 Now on maintenance chemotherapy. As per Dr. Ross there has been progress in the cancer and her prognosis is poor. Dr. Ross discussed CODE STATUS with the daughter. As per daughter patient wanted to be full code. Chronic diarrhea from extensive colon resection imodium prn CAD/history of [place]/stent placement 2013/ischemic cardiomyopathy, EF 35%/ICD /14 On statin, eliquis History of hypertension Now patient is in septic shock We will hold all antihypertensives Hypothyroid Continue synthroid Gastritis/history of PUD/history of esophageal stricture/ Hiatal hernia Continue PPI Anxiety buspirone Hypomagnesemia, chronic continue supplement History of pericardial effusion status post pericardial window History of biliary stones status post ERCP/stent 03/26, 09/25 Vitamin D deficiency Benign positional vertigo/Mnire's Plan/VTE VTE Prophylaxis Ordered?: Yes VS, I&O, 24H, Fishbone Vital Signs/I&O Vital Signs Date Time Temp Pulse Resp B/P (MAP) Pulse Ox O2 Delivery O2 Flow Rate FiO2 09/22/20 01:00 85 114/55 (74) Room Air 09/22/20 00:00 97.0 20 94 09/20/20 05:30 1.0 I&O- Last 24 Hours up to 6 AM 09/22/20 06:00 Intake Total 512.5 ml Output Total 650 ml Balance -137.5 ml Laboratory Data 24H LABS Laboratory Tests 2 09/21/20 08:45: Neutrophils (%) (Auto) , Nucleated Red Blood Cells % (auto) 0.3H, Neutrophils 42, Band Neutrophils 28H, Lymphocytes (Manual) 8L, Monocytes (Manual) 12H, Eosinophils (Manual) 1, Atypical Lymphocytes 9H, Nucleated Red Blood Cells 12H, Hypochromasia 1+, Anisocytosis 2+, Spherocytes 1+, Platelet Estimate DECREASED, Anion Gap 9, Glomerular Filtration Rate > 60.0, Lactic Acid Level 4.0*H, Calcium Level 7.8L 09/21/20 13:55: Lactic Acid Followup at 4 Hours 2.7*H 09/22/20 05:28: Lactic Acid Level 3.6*H 09/22/20 05:29: Neutrophils (%) (Auto) , Nucleated Red Blood Cells % (auto) 0.1H, Neutrophils 72H, Band Neutrophils 18H, Lymphocytes (Manual) 5L, Monocytes (Manual) 3, Eosinophils (Manual) 1, Anisocytosis 2+, Platelet Estimate DECREASED, Anion Gap 8, Glomerular Filtration Rate > 60.0, Calcium Level 8.0L, Immature Granulocyte % (Auto) , Myelocytes 1H, Macrocytosis 1+ CBC/BMP Laboratory Tests 09/21/20 08:45 09/22/20 05:29 Microbiology Microbiology 09/20/20 Blood Culture - Preliminary, Resulted No growth after 24 hours . All specim... 09/20/20 Blood Culture - Preliminary, Resulted No growth after 24 hours . All specim... 09/19/20 Urine Culture - Final, Complete 09/19/20 Respiratory Virus Panel (PCR) ([facility]) - Final, Complete 09/19/20 Blood Culture - Final, Complete Klebsiella Pneumoniae 09/19/20 Blood Culture - Final, Complete Klebsiella Pneumoniae HAI BAXTER MD Sep 22, 2020 07:04
[2020-09-23] VITALS: BP 103/55
[2020-09-23 03:55] LABS: HEMATOCRIT 28.4 % (36.0-47.0); HEMOGLOBIN 9.1 g/dl (12.0-15.5); MEAN CORPUSCULAR HEMOGLOBIN 29.6 pg (27.0-33.0); MEAN CORPUSCULAR VOLUME 92.5 fl (80.0-96.0); PLATELET COUNT, AUTOMATED 108 10^3/uL (150-450); RED BLOOD COUNT 3.07 10^6/uL (4.00-5.40)
[2020-09-23 04:00] VITALS: BP 105/55
[2020-09-23 04:19] LABS: WHITE BLOOD COUNT 26.9 10^3/uL (4.0-10.0)
[2020-09-23 04:20] LABS: BLOOD UREA NITROGEN 14 MG/DL (7-18); CALCIUM LEVEL 7.7 MG/DL (8.8-10.2); CARBON DIOXIDE LEVEL 26 MEQ/L (21-32); CHLORIDE LEVEL 115 MEQ/L (98-107); GLOMERULAR FILTRATION RATE > 60.0 (>32); GLUCOSE, FASTING 111 MG/DL (70-100); POTASSIUM SERUM 3.6 MEQ/L (3.5-5.1); SODIUM LEVEL 146 MEQ/L (136-145)
[2020-09-23 04:24] LABS: EOSINOPHILS 1 % (0-3); LYMPHOCYTES 9 % (16-44); MONOCYTES 4 % (0-5); MYELOCYTES 1 % (0-0); NEUTROPHILS 75 % (28-66)
[2020-09-23 04:25] LABS: ANISOCYTOSIS 2+; PLATELET ESTIMATE DECREASED (NORMAL)
[2020-09-23 04:29] LABS: HYPOCHROMASIA 1+
[2020-09-23] MEDS: LEVOTHYROXINE 88MCG TABLET (0.088 MG) PO SCH (05:10)
[2020-09-23 08:57] VITALS: BP 111/57
--- NOTE | 2020-09-23 09:10 | ECHO ---
ECHOCARDIOGRAM DATE OF PROCEDURE: 09/21/2020 Age: Gender: Female Height: 157 cm Weight: 65 kg REFERRING PHYSICIAN: Erlinda Groves M.D. INDICATION: Heart failure, unspecified. MEASUREMENTS: 2D Measurements: LVOT 2.0 cm Left ventricle diastole 4.9 cm Interventricular septum 0.77 cm Posterior wall 1.01 cm Left atrium 3.9 cm Aortic root 2.9 cm Left atrial volume index 35 Doppler Measurements: No aortic stenosis No aortic regurgitation Aortic valve velocity 129 cm/sec LVOT velocity 80.3 cm/sec Trace mitral regurgitation No mitral stenosis Trace mitral regurgitation No pulmonic regurgitation DESCRIPTION: Rhythm appeared most likely to be atrial fibrillation. This was a technically difficult echocardiogram. No pericardial effusion. CONCLUSIONS: 1. Akinesis of the left ventricle apex and apical cap segment. Akinesis of the mid-ventricle segments with the exception of the midlateral segments, which were probably normokinetic. Normal contraction of the left ventricle base. Probably severe reduction of the left ventricular (LV) systolic function with left ventricular ejection fraction (LVEF) of 35% by visual estimate. However, it should be cautioned that LV ejection fraction assessment was difficult due to poor endocardiac visualization. 2. Technically difficult echocardiogram. 3. Presence of endocardial pacemaker leads with the right ventricle lead attaching to the right ventricle conus portion. 4. Mild left atrial dilitation. 5. Normal right ventricle size and systolic function. Hypertrophy of the right ventricle free wall. Difficult to assess estimated right ventricle systolic pressure and pulmonary artery systolic pressure. 6. Moderate increased left atrial volume index.
[2020-09-23] MEDS: CEFEPIME HCL 2 GM in D5W MINI-BAG PLUS 50 ML IV SCH ×2 (09:11→20:25)
[2020-09-23] MEDS: PANTOPRAZOLE 40MG TAB (PROTONIX) PO SCH (09:12)
[2020-09-23] MEDS: ASPIRIN 81MG ENTERIC TABLET PO SCH (09:12)
[2020-09-23] MEDS: DIGOXIN 0.125 MG TAB PO SCH (09:12)
[2020-09-23] MEDS: MAGNESIUM OXIDE 400MG TAB (MAG-OX) PO SCH ×2 (09:13→20:25)
[2020-09-23] MEDS: APIXABAN 5 MG TAB (ELIQUIS) PO SCH ×2 (09:16→20:25)
--- NOTE | 2020-09-23 10:13 | IPNPDOC ---
Subjective Date Seen The patient was seen on 09/23/20. Subjective Chief Complaint/HPI Patient feels well reports that appetite is okay however states she is very weak and could not even sit up by the side of the bed with physical therapy. No fever or chills. Blood pressure low normal range. Pulse rate is better controlled today. Objective Physical Examination General Exam: Positive: Alert, Cooperative, No Acute Distress Eye Exam: Positive: PERRLA, Conjunctiva & lids normal, EOMI, Sclera icteric ENT Exam: Positive: Atraumatic, Pharynx Normal, Other ENT (Dry mucous membranes) Neck Exam: Positive: Supple; Negative: JVD, thyromegaly Chest Exam: Positive: Clear to auscultation, Normal air movement Heart Exam: Positive: Tachycardic, Irregular Rhythm, Normal S1, Normal S2; Negative: Murmurs, Rubs Telemetry: Positive: Atrial fibrillation Abdomen Exam: Positive: Normal bowel sounds, Soft; Negative: Tenderness Extremity Exam: Positive: Edema (1+); Negative: Clubbing, Cyanosis Skin Exam: Positive: Nl turgor and temperature; Negative: Breakdown, Lesion Psych Exam: Positive: Memory Intact, Oriented x 3 Assessment /Plan Assessment 85 year old female with 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 currently on 5-fluorouracil every 2 weeks, with h/o extensive bowel resection and chronic diarrhea , paroxysmal Afib on eliquis, CAD status post stents, ischemic cardiomyopathy, 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 Had routine lab work done on 09/17/2020 and found to be neutropenic for which she was given Neulasta on 09/18/2020. This morning she she was noted to have a fever of 102.7 at home so EMS was called. She complained of dizziness and weakness to the EMS. Daughter also reported that patient has lost about 25 pounds of weight in the past 6 weeks. Her overall appetite has been poor along with chronic diarrhea. In ED patient was febrile to 101, hypotensive with lowest being 71/42, labs were significant for a neutropenia of 0.9, lactic acidosis of 5.4. She also had mildly elevated bilirubins at 2.0, patient was given cefepime and started on sepsis protocol fluid loading. Patient was admitted for neutropenic fever and septic shock. Gram negative bacteremia with Septic shock 2/ blood cultures positive for Klebsiella Will give cefepime x 5 days then change to cefdinir. Neutropenia now resolved. Received Neulasta on 09/18/20, WBC up now Lactic acidosis Due to septic shock Resolved PAF on Eliquis Patient now in afib with rvr. digoxin for rate control. Not able to give metoprolol as blood pressures are low normal . Once blood pressure is a little better will slowly resume metoprolol Systolic and diastolic CHF exacerbation/ AICD in place ischemic cardiomyopathy. EF of 35% We will hold diuretics new echo noted. Shows EF of 35% with left ventricular apical akinesia Recurrent colon cancer with mets to liver and lungs in 2018 on chemotherapy (Third recurrence first had it in 1979) H/o Colon cancer in the status post surgical resection with no adjuvant therapy. 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 Now on maintenance chemotherapy. As per Dr. Ross there has been progress in the cancer and her prognosis is poor. Dr. Ross discussed CODE STATUS with the daughter. As per daughter patient wanted to be full code. Chronic diarrhea from extensive colon resection imodium prn CAD/history of MS/stent placement 2013/ischemic cardiomyopathy, EF 35%/ICD /14 On statin, eliquis History of hypertension Patient just recovering from septic shock blood pressure still low normal range. We will hold all antihypertensives Hypothyroid Continue synthroid Gastritis/history of PUD/history of esophageal stricture/ Hiatal hernia Continue PPI Anxiety buspirone Hypomagnesemia, chronic continue supplement History of pericardial effusion status post pericardial window History of biliary stones status post ERCP/stent 03/26, 09/25 Vitamin D deficiency Benign positional vertigo/Mnire's Plan/VTE VTE Prophylaxis Ordered?: Yes VS, I&O, 24H, Fishbone Vital Signs/I&O Vital Signs Date Time Temp Pulse Resp B/P (MAP) Pulse Ox O2 Delivery O2 Flow Rate FiO2 09/23/20 09:12 105 09/23/20 08:57 96.5 16 111/57 (75) 99 Room Air 09/20/20 05:30 1.0 I&O- Last 24 Hours up to 6 AM 09/23/20 05:59 Intake Total 1350 ml Output Total 775 ml Balance 575 ml Laboratory Data 24H LABS Laboratory Tests 2 09/23/20 03:45: Immature Granulocyte % (Auto) , Neutrophils (%) (Auto) , Nucleated Red Blood Cells % (auto) 0.1H, Neutrophils 75H, Band Neutrophils 10, Lymphocytes (Manual) 9L, Monocytes (Manual) 4, Eosinophils (Manual) 1, Myelocytes 1H, Hypochromasia 1+, Anisocytosis 2+, Platelet Estimate DECREASED, Anion Gap 5L, Glomerular Filtration Rate > 60.0, Calcium Level 7.7L CBC/BMP Laboratory Tests 09/23/20 03:45 Microbiology Microbiology 09/20/20 Blood Culture - Preliminary, Resulted No Growth after 72 hours. All specime... 09/20/20 Blood Culture - Preliminary, Resulted No Growth after 72 hours. All specime... 09/19/20 Urine Culture - Final, Complete 09/19/20 Respiratory Virus Panel (PCR) ([facility]) - Final, Complete 09/19/20 Blood Culture - Final, Complete Klebsiella Pneumoniae 09/19/20 Blood Culture - Final, Complete Klebsiella Pneumoniae HAI BAXTER MD Sep 23, 2020 10:13
[2020-09-23 11:47] VITALS: BP 101/50
[2020-09-23] MEDS: busPIRone 10 MG TAB PO SCH ×2 (12:13→20:25)
[2020-09-23 16:00] VITALS: BP 108/56
[2020-09-23 20:00] VITALS: BP 126/89
[2020-09-24] VITALS: BP 114/56
[2020-09-24 03:47] LABS: HEMATOCRIT 26.6 % (36.0-47.0); HEMOGLOBIN 8.7 g/dl (12.0-15.5); MEAN CORPUSCULAR HEMOGLOBIN 30.4 pg (27.0-33.0); MEAN CORPUSCULAR HGB CONC 32.7 g/dl (32.0-36.5); PLATELET COUNT, AUTOMATED 114 10^3/uL (150-450); RED BLOOD COUNT 2.86 10^6/uL (4.00-5.40)
[2020-09-24 03:48] LABS: WHITE BLOOD COUNT 29.3 10^3/uL (4.0-10.0)
[2020-09-24 04:00] VITALS: BP 111/57
[2020-09-24 04:14] LABS: ANISOCYTOSIS 2+; LYMPHOCYTES 2 % (16-44); METAMYELOCYTES 3 % (0-0); MONOCYTES 1 % (0-5); NEUTROPHILS 81 % (28-66); PLATELET ESTIMATE DECREASED (NORMAL)
[2020-09-24 04:25] LABS: BLOOD UREA NITROGEN 15 MG/DL (7-18); CALCIUM LEVEL 7.9 MG/DL (8.8-10.2); CARBON DIOXIDE LEVEL 27 MEQ/L (21-32); CHLORIDE LEVEL 112 MEQ/L (98-107); CREATININE FOR GFR 0.55 MG/DL (0.55-1.30); GLOMERULAR FILTRATION RATE > 60.0 (>32); GLUCOSE, FASTING 116 MG/DL (70-100); POTASSIUM SERUM 3.6 MEQ/L (3.5-5.1); SODIUM LEVEL 144 MEQ/L (136-145)
[2020-09-24] MEDS: LEVOTHYROXINE 88MCG TABLET (0.088 MG) PO SCH (05:42)
[2020-09-24] MEDS ORDERED: METOPROLOL TART 12.5 MG PER 1/2 TAB PO SCH (06:00)
[2020-09-24 08:00] VITALS: BP 112/56
[2020-09-24] MEDS: PANTOPRAZOLE 40MG TAB (PROTONIX) PO SCH (08:18)
[2020-09-24] MEDS: busPIRone 10 MG TAB PO SCH ×2 (08:18→20:45)
[2020-09-24] MEDS: DIGOXIN 0.125 MG TAB PO SCH (08:18)
[2020-09-24] MEDS: ASPIRIN 81MG ENTERIC TABLET PO SCH (08:18)
[2020-09-24] MEDS: CEFEPIME HCL 2 GM in D5W MINI-BAG PLUS 50 ML IV SCH (08:19)
[2020-09-24] MEDS: MAGNESIUM OXIDE 400MG TAB (MAG-OX) PO SCH ×2 (08:19→20:46)
[2020-09-24] MEDS: APIXABAN 5 MG TAB (ELIQUIS) PO SCH ×2 (09:12→20:45)
[2020-09-24 12:00] VITALS: BP 118/63
[2020-09-24] MEDS: METOPROLOL TART 25 MG TABLET PO SCH ×2 (12:42→18:20)
--- NOTE | 2020-09-24 15:30 | IPNPDOC ---
Date Seen The patient was seen on 09/24/20. Progress Note SUBJECTIVE: Seen and examined at bedside. She is awake and oriented. Appears very fatigued. Per RN. Patient worked with physical therapy yesterday afternoon, heart rate 1-150. Overnight. Heart rate was in atrial flutter with RVR with rates ranging between 120 and 150. OBJECTIVE PHYSICAL EXAMINATION: VITAL SIGNS: please see below General: NAD, comfortable HEENT: PERRLA, EOMI, sclerae clear Neck: supple, normal ROM, no JVD Respiratory: lungs CTAB, no wheeze, no rales, no crackles CVS: Tachycardic, irregular rhythm, normal S1, normal S2. Abdo: soft, no masses, no hepatosplenomegaly, BS+, no rebound tenderness Extremities: 1+ edema MSK: no joint deformities, normal ROM Neuro: no focal neuro deficits, moving all 4 extremities, CN2-12 intact. Strength 5/5 in all 4 extremities. No nystagmus. Psych: calm, cooperative, AAO x 3 LABORATORY DATA, IMAGING STUDIES, MICROBIOLOGY: Please see below. Echocardiogram from 09/21/20: 1. Akinesis of the left ventricle apex and apical cap segment. Akinesis of the mid-ventricle segments with the exception of the midlateral segments, which were probably normokinetic. Normal contraction of the left ventricle base. Probably severe reduction of the left ventricular (LV) systolic function with left ventricular ejection fraction (LVEF) of 35% by visual estimate. However, it should be cautioned that LV ejection fraction assessment was difficult due to poor endocardiac visualization. 2. Technically difficult echocardiogram. 3. Presence of endocardial pacemaker leads with the right ventricle lead attaching to the right ventricle conus portion. 4. Mild left atrial dilitation. 5. Normal right ventricle size and systolic function. Hypertrophy of the right ventricle free wall. Difficult to assess estimated right ventricle systolic pressure and pulmonary artery systolic pressure. 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 Had routine lab work done on 09/17/2020 and found to be neutropenic for which she was given Neulasta on 09/18/2020. This morning she she was noted to have a fever of 102.7 at home so EMS was called. She complained of dizziness and weakness to the EMS. Daughter also reported that patient has lost about 25 pounds of weight in the past 6 weeks. Her overall appetite has been poor along with chronic diarrhea. In ED patient was febrile to 101, hypotensive with lowest being 71/42, labs were significant for a neutropenia of 0.9, lactic acidosis of 5.4. She also had mildly elevated bilirubins at 2.0, patient was given cefepime and started on sepsis protocol fluid loading. Patient was admitted for neutropenic fever and septic shock. Gram negative bacteremia with Septic shock - 2/2 blood cultures positive for Klebsiella - s/p 5 days of cefepime, transitioned to cefdinir 300 mg BID PO - d/w Dr. Christensen, 7 days of cefdinir will be sufficient treatment for klebsiella bacteremies Neutropenia - resolved. - Received Neulasta on 09/18/20, now WBC elevated in response Lactic acidosis 2/2 septic shock - resolved Paroxysmal atrial fibrillation on eliquis - continues to be in afib with RVR, HRs 120-150s - due to soft BPs, her metoprolol has been held - currently receiving digoxin 0.125 mg daily - D/w Dr. Ordonez (patient follows with Dr. Allen) - recommended to start metoprolol tartrate 25 mg q6h PO - continue to monitor on tele. Systolic and diastolic CHF exacerbation/ AICD in place - ischemic cardiomyopathy[facility]. Shows EF of 35% with left ventricular apical akinesia - We will hold diuretics Recurrent colon cancer with mets to liver and lungs in 2018 on chemotherapy (Third recurrence first had it in 1979) - H/o Colon cancer in the status post surgical resection with no adjuvant therapy. 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 - Now on maintenance chemotherapy. - As per Dr. Ross there has been progress in the cancer and her prognosis is poor. - Dr. Ross discussed CODE STATUS with the daughter. As per daughter patient wanted to be full code. Chronic diarrhea from extensive colon resection - imodium prn CAD/history of [place]/stent placement 2013/ischemic cardiomyopathy, EF 35%/ICD 5/14 - On statin, eliquis History of hypertension - Patient just recovering from septic shock blood pressure still low normal range. - BP has been slightly improved - started on metoprolol 25 mg q6h PO for afib with RVR. Hypothyroid - Continue synthroid Gastritis/history of PUD/history of esophageal stricture/ Hiatal hernia - Continue PPI Anxiety - buspirone Hypomagnesemia, chronic - continue supplement History of pericardial effusion status post pericardial window History of biliary stones status post ERCP/stent 03/26, 09/25 Vitamin D deficiency Benign positional vertigo/Mnire's VS, I&O, 24H, Fishbone Vital Signs/I&O Vital Signs Date Time Temp Pulse Resp B/P (MAP) Pulse Ox O2 Delivery O2 Flow Rate FiO2 09/24/20 12:42 141 118/63 09/24/20 12:00 96.5 18 99 Room Air 09/20/20 05:30 1.0 I&O- Last 24 Hours up to 6 AM 09/24/20 06:00 Intake Total 460 ml Output Total 200 ml Balance 260 ml Laboratory Data 24H LABS Laboratory Tests 2 09/24/20 03:40: Immature Granulocyte % (Auto) , Neutrophils (%) (Auto) , Nucleated Red Blood Cells % (auto) 0.2H, Neutrophils 81H, Band Neutrophils 13H, Lymphocytes (Manual) 2L, Monocytes (Manual) 1, Metamyelocytes 3H, Anisocytosis 2+, Macrocytosis 1+, Platelet Estimate DECREASED, Anion Gap 5L, Glomerular Filtration Rate > 60.0, C alcium Level 7.9L CBC/BMP Laboratory Tests 09/24/20 03:40 Microbiology Microbiology 09/20/20 Blood Culture - Preliminary, Resulted No Growth after 72 hours. All specime... 09/20/20 Blood Culture - Preliminary, Resulted No Growth after 72 hours. All specime... 09/19/20 Urine Culture - Final, Complete 09/19/20 Respiratory Virus Panel (PCR) ([facility]) - Final, Complete 09/19/20 Blood Culture - Final, Complete Klebsiella Pneumoniae 09/19/20 Blood Culture - Final, Complete Klebsiella Pneumoniae SHELLIE CHURCHILL MD Sep 24, 2020 15:30
[2020-09-24 16:00] VITALS: BP 108/66
[2020-09-24 20:00] VITALS: BP 100/52
[2020-09-24] MEDS: CEFDINIR 300 MG CAP (OMNICEF) PO SCH (20:46)
[2020-09-25] VITALS (8 sets, daily range): BP systolic 82–129; BP diastolic 48–68
[2020-09-25] MEDS ORDERED: METOPROLOL TART 12.5 MG PER 1/2 TAB PO ONE (01:00)
[2020-09-25] MEDS: METOPROLOL TART 25 MG TABLET PO SCH ×3 (01:05→21:08)
[2020-09-25 05:31] LABS: HEMATOCRIT 28.7 % (36.0-47.0); HEMOGLOBIN 9.1 g/dl (12.0-15.5); MEAN CORPUSCULAR HEMOGLOBIN 29.9 pg (27.0-33.0); MEAN CORPUSCULAR HGB CONC 31.7 g/dl (32.0-36.5); MEAN CORPUSCULAR VOLUME 94.4 fl (80.0-96.0); PLATELET COUNT, AUTOMATED 143 10^3/uL (150-450); RED BLOOD COUNT 3.04 10^6/uL (4.00-5.40)
[2020-09-25 05:36] LABS: WHITE BLOOD COUNT 34.9 10^3/uL (4.0-10.0)
[2020-09-25 06:18] LABS: BLOOD UREA NITROGEN 12 MG/DL (7-18); CALCIUM LEVEL 7.9 MG/DL (8.8-10.2); CARBON DIOXIDE LEVEL 28 MEQ/L (21-32); CHLORIDE LEVEL 113 MEQ/L (98-107); CREATININE FOR GFR 0.44 MG/DL (0.55-1.30); GLOMERULAR FILTRATION RATE > 60.0 (>32); GLUCOSE, FASTING 103 MG/DL (70-100); POTASSIUM SERUM 4.1 MEQ/L (3.5-5.1); SODIUM LEVEL 145 MEQ/L (136-145)
[2020-09-25] MEDS: LEVOTHYROXINE 88MCG TABLET (0.088 MG) PO SCH (06:42)
[2020-09-25 07:15] LABS: EOSINOPHILS 1 % (0-3); LYMPHOCYTES 4 % (16-44); MONOCYTES 7 % (0-5); NEUTROPHILS 84 % (28-66); PLATELET ESTIMATE DECREASED (NORMAL)
[2020-09-25 07:16] LABS: ANISOCYTOSIS 1+; OVALOCYTES 1+; POIKILOCYTOSIS 1+
[2020-09-25] MEDS: DIGOXIN 0.125 MG TAB PO SCH (10:05)
[2020-09-25] MEDS: ASPIRIN 81MG ENTERIC TABLET PO SCH (10:15)
[2020-09-25] MEDS: CEFDINIR 300 MG CAP (OMNICEF) PO SCH (10:15)
[2020-09-25] MEDS: PANTOPRAZOLE 40MG TAB (PROTONIX) PO SCH (10:15)
[2020-09-25] MEDS: busPIRone 10 MG TAB PO SCH ×2 (10:15→21:07)
[2020-09-25] MEDS: MAGNESIUM OXIDE 400MG TAB (MAG-OX) PO SCH ×2 (10:15→21:08)
[2020-09-25] MEDS: APIXABAN 5 MG TAB (ELIQUIS) PO SCH ×2 (10:16→21:08)
[2020-09-25] MEDS ORDERED: NS 500 ML IV ONE (13:55)
[2020-09-25] MEDS ORDERED: METOPROLOL TART 25 MG TABLET PO SCH (14:00)
[2020-09-25] MEDS ORDERED: SLF 3 ML SYR IV PRN (15:40)
--- NOTE | 2020-09-25 16:45 | REP ---
INDICATION: r/o infiltrate. COMPARISON: 09/19/2020. TECHNIQUE: Single portable AP view of the chest was performed. FINDINGS: There are new bibasilar infiltrates. Heart and mediastinum are unchanged. A right central venous catheter is again seen with the tip in the superior vena cava, as well as a left pacemaker. IMPRESSION: New bibasilar infiltrates. <Electronically signed by Yared Snider > 09/25/20 [id number]
[2020-09-25 17:32] LABS: HEMATOCRIT 28.7 % (36.0-47.0); HEMOGLOBIN 8.8 g/dl (12.0-15.5); MEAN CORPUSCULAR HEMOGLOBIN 29.6 pg (27.0-33.0); MEAN CORPUSCULAR HGB CONC 30.7 g/dl (32.0-36.5); MEAN CORPUSCULAR VOLUME 96.6 fl (80.0-96.0); PLATELET COUNT, AUTOMATED 137 10^3/uL (150-450); RED BLOOD COUNT 2.97 10^6/uL (4.00-5.40)
[2020-09-25 17:41] LABS: ALBUMIN 1.7 GM/DL (3.2-5.2); ALT/SGPT 12 U/L (12-78); BILIRUBIN,TOTAL 0.4 MG/DL (0.2-1.0); BLOOD UREA NITROGEN 13 MG/DL (7-18); CALCIUM LEVEL 7.7 MG/DL (8.8-10.2); CARBON DIOXIDE LEVEL 27 MEQ/L (21-32); CHLORIDE LEVEL 115 MEQ/L (98-107); CREATININE FOR GFR 0.63 MG/DL (0.55-1.30); GLOMERULAR FILTRATION RATE > 60.0 (>32); GLUCOSE, FASTING 128 MG/DL (70-100); POTASSIUM SERUM 3.9 MEQ/L (3.5-5.1); SODIUM LEVEL 144 MEQ/L (136-145); TOTAL PROTEIN 4.2 GM/DL (6.4-8.2)
[2020-09-25 18:06] LABS: WHITE BLOOD COUNT 37.6 10^3/uL (4.0-10.0)
[2020-09-25 18:54] LABS: LYMPHOCYTES 5 % (16-44); METAMYELOCYTES 1 % (0-0); MONOCYTES 1 % (0-5); NEUTROPHILS 87 % (28-66)
[2020-09-25 18:55] LABS: ANISOCYTOSIS 1+; HYPOCHROMASIA 1+; PLATELET ESTIMATE DECREASED (NORMAL)
[2020-09-25] MEDS ORDERED: PIPERACILLIN/TAZOBACTAM SOD 4.5 GM in D5W MINI-BAG PLUS 50 ML IV SCH (19:00)
--- NOTE | 2020-09-25 19:09 | IPNPDOC ---
Date Seen The patient was seen on 09/25/20. Progress Note SUBJECTIVE: Seen and examined at bedside. She is awake and oriented. Appears very fatigued. Per RN. Patient worked with physical therapy yesterday afternoon, heart rate 1-150. Overnight. Heart rate was in atrial flutter with RVR with rates ranging between 120 and 150. OBJECTIVE PHYSICAL EXAMINATION: VITAL SIGNS: please see below General: NAD, comfortable HEENT: PERRLA, EOMI, sclerae clear Neck: supple, normal ROM, no JVD Respiratory: lungs CTAB, no wheeze, no rales, no crackles CVS: Tachycardic, irregular rhythm, normal S1, normal S2. Abdo: soft, no masses, no hepatosplenomegaly, BS+, no rebound tenderness Extremities: 1+ edema MSK: no joint deformities, normal ROM Neuro: no focal neuro deficits, moving all 4 extremities, CN2-12 intact. Strength 5/5 in all 4 extremities. No nystagmus. Psych: calm, cooperative, AAO x 3 LABORATORY DATA, IMAGING STUDIES, MICROBIOLOGY: Please see below. Echocardiogram from 09/21/20: 1. Akinesis of the left ventricle apex and apical cap segment. Akinesis of the mid-ventricle segments with the exception of the midlateral segments, which were probably normokinetic. Normal contraction of the left ventricle base. Probably severe reduction of the left ventricular (LV) systolic function with left ventricular ejection fraction (LVEF) of 35% by visual estimate. However, it should be cautioned that LV ejection fraction assessment was difficult due to poor endocardiac visualization. 2. Technically difficult echocardiogram. 3. Presence of endocardial pacemaker leads with the right ventricle lead attaching to the right ventricle conus portion. 4. Mild left atrial dilitation. 5. Normal right ventricle size and systolic function. Hypertrophy of the right ventricle free wall. Difficult to assess estimated right ventricle systolic pressure and pulmonary artery systolic pressure. 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 Had routine lab work done on 09/17/2020 and found to be neutropenic for which she was given Neulasta on 09/18/2020. This morning she she was noted to have a fever of 102.7 at home so EMS was called. She complained of dizziness and weakness to the EMS. Daughter also reported that patient has lost about 25 pounds of weight in the past 6 weeks. Her overall appetite has been poor along with chronic diarrhea. In ED patient was febrile to 101, hypotensive with lowest being 71/42, labs were significant for a neutropenia of 0.9, lactic acidosis of 5.4. She also had mildly elevated bilirubins at 2.0, patient was given cefepime and started on sepsis protocol fluid loading. Patient was admitted for neutropenic fever and septic shock. Gram negative bacteremia with Septic shock - 2/2 blood cultures positive for Klebsiella - s/p 5 days of cefepime, transitioned to cefdinir 300 mg BID PO - d/w Dr. Christensen, 7 days of cefdinir will be sufficient treatment for klebsiella bacteremia - patient continues to have persistently elevated LA, low BPs, and low temp - CXR showing new bilateral infiltrates - will stop cefdinir, start zosyn for questionable HAP Neutropenia - resolved. - Received Neulasta on 09/18/20, now WBC elevated in response Paroxysmal atrial fibrillation on eliquis - continues to be in afib with RVR, HRs 120-150s - due to soft BPs, her metoprolol has been held - currently receiving digoxin 0.125 mg daily - D/w Dr. Ordonez (patient follows with Dr. Allen) - recommended to start metoprolol tartrate 25 mg q6h PO - continue to monitor on tele. Systolic and diastolic CHF exacerbation/ AICD in place - ischemic [facility]. Shows EF of 35% with left ventricular apical akinesia - We will hold diuretics Recurrent colon cancer with mets to liver and lungs in 2018 on chemotherapy (Third recurrence first had it in 1979) - H/o Colon cancer in the status post surgical resection with no adjuvant therapy. 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 - Now on maintenance chemotherapy. - As per Dr. Ross there has been progress in the cancer and her prognosis is poor. - Dr. Ross discussed CODE STATUS with the daughter. As per daughter patient wanted to be full code. Chronic diarrhea from extensive colon resection - imodium prn CAD/history of [place]/stent placement 2013/ischemic cardiomyopathy, EF 35%/ICD 06/21 - On statin, eliquis History of hypertension - Patient just recovering from septic shock blood pressure still low normal rang e. - BP has been slightly improved - started on metoprolol 25 mg q6h PO for afib with RVR. Hypothyroid - Continue synthroid Gastritis/history of PUD/history of esophageal stricture/ Hiatal hernia - Continue PPI Anxiety - buspirone Hypomagnesemia, chronic - continue supplement History of pericardial effusion status post pericardial window History of biliary stones status post ERCP/stent 03/26, 09/25 Vitamin D deficiency Benign positional vertigo/Mnire's VS, I&O, 24H, Fishbone Vital Signs/I&O Vital Signs Date Time Temp Pulse Resp B/P (MAP) Pulse Ox O2 Delivery O2 Flow Rate FiO2 09/25/20 16:44 96.8 66 18 104/60 (75) 93 Room Air 09/20/20 05:30 1.0 I&O- Last 24 Hours up to 6 AM 09/25/20 06:00 Intake Total 570 ml Balance 570 ml Laboratory Data 24H LABS Laboratory Tests 2 09/25/20 05:10: Immature Granulocyte % (Auto) , Neutrophils (%) (Auto) , Nucleated Red Blood Cells % (auto) 0.1H, Neutrophils 84H, Band Neutrophils 4, Lymphocytes (Manual) 4L, Monocytes (Manual) 7H, Eosinophils (Manual) 1, Poikilocytosis 1+, Anisocy tosis 1+, Macrocytosis 1+, Ovalocytes 1+, Platelet Estimate DECREASED, Anion Gap 4L, Glomerular Filtration Rate > 60.0, Calcium Level 7.9L, Magnesium Level 2.0 09/25/20 08:45: Lactic Acid Level 2.2*H, Whole Blood Ionized Calcium 4.5 09/25/20 13:03: Lactic Acid Followup at 4 Hours 4.7*H 09/25/20 17:05: Immature Granulocyte % (Auto) , Neutrophils (%) (Auto) , Nucleated Red Blood Cells % (auto) 0.1H, Neutrophils 87H, Band Neutrophils 6, Lymphocytes (Manual) 5L, Monocytes (Manual) 1, Anisocytosis 1+, Platelet Estimate DECREASED, Anion G ap 2L, Glomerular Filtration Rate > 60.0, Calcium Level 7.7L, Magnesium Level 2.0, Lactic Acid Level 3.5*H, Metamyelocytes 1H, Hypochromasia 1+, Total Bilirubin 0.4, Aspartate Amino Transf (AST/SGOT) 15, Alanine Aminotransferase (ALT/SGPT) 12, Alkaline Phosphatase 148H, Total Protein 4.2L, Albumin 1.7L, Albumin/Globulin Ratio 0.7L CBC/BMP Laboratory Tests 09/25/20 05:10 09/25/20 17:05 Microbiology Microbiology 09/25/20 Blood Culture, Received Pending 09/20/20 Blood Culture - Final, Complete NO GROWTH AFTER 5 DAYS 09/20/20 Blood Culture - Final, Complete NO GROWTH AFTER 5 DAYS 09/19/20 Urine Culture - Final, Complete 09/19/20 Respiratory Virus Panel (PCR) ([facility]) - Final, Complete 09/19/20 Blood Culture - Final, Complete Klebsiella Pneumoniae 09/19/20 Blood Culture - Final, Complete Klebsiella Pneumoniae SHELLIE CHURCHILL MD Sep 25, 2020 19:09
[2020-09-25] MEDS: SLF 3 ML SYR IV SCH (22:00)
[2020-09-26] VITALS (13 sets, daily range): BP systolic 86–107; BP diastolic 40–55
[2020-09-26] MEDS: PIPERACILLIN/TAZOBACTAM SOD 4.5 GM in D5W MINI-BAG PLUS 50 ML IV SCH ×4 (04:46→21:28)
[2020-09-26] MEDS ORDERED: SODIUM CHLORIDE 0.9% INJ 10 ML SYR IV PRN (05:45)
[2020-09-26] MEDS: SLF 3 ML SYR IV SCH ×3 (06:00→21:31)
[2020-09-26] MEDS: LEVOTHYROXINE 88MCG TABLET (0.088 MG) PO SCH (06:37)
[2020-09-26 06:40] LABS: HEMATOCRIT 23.7 % (36.0-47.0); HEMOGLOBIN 7.4 g/dl (12.0-15.5); MEAN CORPUSCULAR HEMOGLOBIN 30.2 pg (27.0-33.0); MEAN CORPUSCULAR HGB CONC 31.2 g/dl (32.0-36.5); MEAN CORPUSCULAR VOLUME 96.7 fl (80.0-96.0); PLATELET COUNT, AUTOMATED 121 10^3/uL (150-450); RED BLOOD COUNT 2.45 10^6/uL (4.00-5.40); WHITE BLOOD COUNT 22.3 10^3/uL (4.0-10.0)
[2020-09-26 07:08] LABS: BLOOD UREA NITROGEN 11 MG/DL (7-18); CALCIUM LEVEL 7.3 MG/DL (8.8-10.2); CARBON DIOXIDE LEVEL 28 MEQ/L (21-32); CHLORIDE LEVEL 114 MEQ/L (98-107); CREATININE FOR GFR 0.56 MG/DL (0.55-1.30); GLOMERULAR FILTRATION RATE > 60.0 (>32); GLUCOSE, FASTING 102 MG/DL (70-100); POTASSIUM SERUM 3.3 MEQ/L (3.5-5.1); SODIUM LEVEL 148 MEQ/L (136-145)
[2020-09-26 07:49] LABS: ATYPICAL LYMPH 1 % (0-5); BASOPHILS 1 % (0-1); HYPOCHROMASIA 1+; LYMPHOCYTES 6 % (16-44); MICROCYTOSIS 1+; MONOCYTES 2 % (0-5); NEUTROPHILS 77 % (28-66); PLATELET ESTIMATE DECREASED (NORMAL)
[2020-09-26] MEDS: DIGOXIN 0.125 MG TAB PO SCH (09:00)
[2020-09-26] MEDS: METOPROLOL TART 25 MG TABLET PO SCH ×2 (09:58→21:28)
[2020-09-26] MEDS: APIXABAN 5 MG TAB (ELIQUIS) PO SCH ×2 (09:58→21:30)
[2020-09-26] MEDS: PANTOPRAZOLE 40MG TAB (PROTONIX) PO SCH (09:58)
[2020-09-26] MEDS: MAGNESIUM OXIDE 400MG TAB (MAG-OX) PO SCH ×2 (09:59→21:31)
[2020-09-26] MEDS: busPIRone 10 MG TAB PO SCH ×2 (09:59→21:30)
[2020-09-26] MEDS: ASPIRIN 81MG ENTERIC TABLET PO SCH (09:59)
[2020-09-26] MEDS ORDERED: POTASSIUM CHLORIDE 10 MEQ SR TABLET PO ONE (14:35)
[2020-09-26] MEDS ORDERED: ISOVUE-370 76% 100ML VIAL As Ordered ONE (15:04)
[2020-09-26] MEDS ORDERED: CASIRIVIMAB/IMDEVIMAB 1,200 MG in NS 250 ML IV ONE (16:30)
[2020-09-26] MEDS ORDERED: NS 1,000 ML IV SCH (16:30)
[2020-09-26] MEDS ORDERED: diphenhydrAMINE 50MG/ML VIAL (J1200) IV PRN (16:30)
[2020-09-26] MEDS ORDERED: ALBUTEROL SULFATE 2.5 MG/0.5 ML INH NEB SOLN INH PRN (16:30)
[2020-09-26] MEDS ORDERED: ALBUTEROL 90 MCG/ACT 8GM HFA INHALER INH PRN (16:30)
[2020-09-26] MEDS ORDERED: methylPREDNISolone 125MG 2ML VIAL IV PRN (16:30)
--- NOTE | 2020-09-26 17:18 | REP ---
INDICATION: fever septic shock. COMPARISON: 08/26/2020, 08/05/2020. TECHNIQUE: CT abdomen performed without IV contrast. CT abdomen and pelvis performed with IV contrast as well, following intravenous administration of 100 cc of Isovue 370. Sagittal, coronal and 3D MIP reconstruction images are performed. FINDINGS: Lung bases: There is moderate right pleural effusion. There is a small left pleural effusion. There are mild dependent atelectatic changes bilaterally. There is a small stable pericardial effusion. Liver: Metastatic disease involving the left lobe of the liver has mildly progressed since the prior studies, an irregular mass currently measures 2.4 cm in diameter. Previously noted metastatic disease involving the posterior right lobe of the liver appears essentially unchanged. Gallbladder: Prior cholecystectomy. There is a stent in the common bile duct. Spleen: There is a tiny calcified granuloma in the spleen. Adrenals: There is a stable 9 mm left adrenal nodule likely representing an adenoma. Pancreas: Unremarkable. Kidneys: There is a cyst in the lower pole of the left kidney measuring 1.8 cm in diameter. There is a cyst in the upper pole the right kidney measuring 2.2 cm in diameter. There is no hydronephrosis bilaterally. Small and large bowel: Unremarkable. There is a rectosigmoid suture line. There is no free air or obstruction. Free fluid: None. Adenopathy: None. Appendix: Not inflamed. Osseous structures: There are degenerative changes of the spine without compression deformity. Pelvis: No mass. Prior hysterectomy. IMPRESSION: Moderate right pleural effusion, small left pleural effusion, mild dependent atelectatic changes bilaterally. There is a small stable pericardial effusion. Enlarging metastatic lesion left lobe of the liver. Stable metastatic disease in the right lobe of the liver. No other evidence of acute finding. <Electronically signed by Yared Snider > 09/26/20 [id number]
--- NOTE | 2020-09-26 17:50 | IPNPDOC ---
Date Seen The patient was seen on 09/26/20. Progress Note SUBJECTIVE: Seen and examined at bedside. She is awake and oriented. Appears very fatigued. Per RN. Patient worked with physical therapy yesterday afternoon, heart rate 1-150. Overnight. Heart rate was in atrial flutter with RVR with rates ranging between 120 and 150. OBJECTIVE PHYSICAL EXAMINATION: VITAL SIGNS: please see below General: NAD, comfortable HEENT: PERRLA, EOMI, sclerae clear Neck: supple, normal ROM, no JVD Respiratory: lungs CTAB, no wheeze, no rales, no crackles CVS: Tachycardic, irregular rhythm, normal S1, normal S2. Abdo: soft, no masses, no hepatosplenomegaly, BS+, no rebound tenderness Extremities: 1+ edema MSK: no joint deformities, normal ROM Neuro: no focal neuro deficits, moving all 4 extremities, CN2-12 intact. Strength 5/5 in all 4 extremities. No nystagmus. Psych: calm, cooperative, AAO x 3 LABORATORY DATA, IMAGING STUDIES, MICROBIOLOGY: Please see below. Echocardiogram from 09/21/20: 1. Akinesis of the left ventricle apex and apical cap segment. Akinesis of the mid-ventricle segments with the exception of the midlateral segments, which were probably normokinetic. Normal contraction of the left ventricle base. Probably severe reduction of the left ventricular (LV) systolic function with left ventricular ejection fraction (LVEF) of 35% by visual estimate. However, it should be cautioned that LV ejection fraction assessment was difficult due to poor endocardiac visualization. 2. Technically difficult echocardiogram. 3. Presence of endocardial pacemaker leads with the right ventricle lead attaching to the right ventricle conus portion. 4. Mild left atrial dilitation. 5. Normal right ventricle size and systolic function. Hypertrophy of the right ventricle free wall. Difficult to assess estimated right ventricle systolic pressure and pulmonary artery systolic pressure. 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 Had routine lab work done on 09/17/2020 and found to be neutropenic for which she was given Neulasta on 09/18/2020. This morning she she was noted to have a fever of 102.7 at home so EMS was called. She complained of dizziness and weakness to the EMS. Daughter also reported that patient has lost about 25 pounds of weight in the past 6 weeks. Her overall appetite has been poor along with chronic diarrhea. In ED patient was febrile to 101, hypotensive with lowest being 71/42, labs were significant for a neutropenia of 0.9, lactic acidosis of 5.4. She also had mildly elevated bilirubins at 2.0, patient was given cefepime and started on sepsis protocol fluid loading. Patient was admitted for neutropenic fever and septic shock. Gram negative bacteremia with Septic shock - 2/2 blood cultures positive for Klebsiella - s/p 5 days of cefepime, transitioned to cefdinir 300 mg BID PO - d/w Dr. Christensen, 7 days of cefdinir will be sufficient treatment for klebsiella bacteremia - patient continues to have persistently elevated LA, low BPs, and low temp - CXR showing new bilateral infiltrates - will stop cefdinir, start zosyn for questionable HAP - Dr. Christensen recommending CT abdo pelvis to r/o intra abdominal abscess. Showing increase metastatic lesion to liver, otherwise stable. Neutropenia - resolved. - Received Neulasta on 09/18/20, now WBC elevated in response Paroxysmal atrial fibrillation on eliquis - continues to be in afib with RVR, HRs 120-150s - due to soft BPs, her metoprolol has been held - currently receiving digoxin 0.125 mg daily - D/w Dr. Ordonez (patient follows with Dr. Allen) - recommended to start metoprolol tartrate 25 mg q6h PO - continue to monitor on tele. Systolic and diastolic CHF exacerbation/ AICD in place - [facility]. Shows EF of 35% with left ventricular apical akinesia - We will hold diuretics Recurrent colon cancer with mets to liver and lungs in 2018 on chemotherapy (Third recurrence first had it in 1979) - H/o Colon cancer in the status post surgical resection with no adjuvant therapy. 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 - Now on maintenance chemotherapy. - As per Dr. Ross there has been progress in the cancer and her prognosis is poor. - Dr. Ross discussed CODE STATUS with the daughter. As per daughter patient wanted to be full code. Chronic diarrhea from extensive colon resection - imodium prn CAD/history of AR/stent placement 2013/ischemic cardiomyopathy, EF 35%/ICD 06/21 - On statin, eliquis History of hypertension - Patient just recovering from septic shock blood pressure still low normal range. - BP has been slightly improved - started on metoprolol 25 mg q6h PO for afib with RVR. Hypothyroid - Continue synthroid Gastritis/history of PUD/history of esophageal stricture/ Hiatal hernia - Continue PPI Anxiety - buspirone Hypomagnesemia, chronic - continue supplement History of pericardial effusion status post pericardial window History of biliary stones status post ERCP/stent 03/26, 09/25 Vitamin D deficiency Benign positional vertigo/Mnire's VS, I&O, 24H, Fishbone Vital Signs/I&O Vital Signs Date Time Temp Pulse Resp B/P (MAP) Pulse Ox O2 Delivery O2 Flow Rate FiO2 09/26/20 16:00 96.5 80 18 107/53 (71) 100 Room Air 09/20/20 05:30 1.0 I&O- Last 24 Hours up to 6 AM 09/26/20 06:00 Intake Total 1930.0 ml Balance 1930.0 ml Laboratory Data 24H LABS Laboratory Tests 2 09/26/20 06:20: Anion Gap 6L, Glomerular Filtration Rate > 60.0, Calcium Level 7.3L 09/26/20 06:22: Immature Granulocyte % (Auto) , Neutrophils (%) (Auto) , Nucleated Red Blood Cells % (auto) 0.2H, Neutrophils 77H, Band Neutrophils 13H, Lymphocytes (Manual) 6L, Monocytes (Manual) 2, Basophils (Manual) 1, Atypical Lymphocytes 1, Hypochromasia 1+, Microcytosis 1+, Macrocytosis 1+, Platelet Estimate DECREASED 09/26/20 14:16: Urine Color YELLOW, Urine Appearance CLOUDYH, Urine pH 5.0, Urine Specific Lottie 1.028, Urine Protein 1+H, Urine Glucose (UA) 1+H, Urine Ketones NEGATIVE, Urine Blood NEGATIVE, Urine Nitrite NEGATIVE, Urine Bilirubin NEGATIVE, Urine Urobilinogen 0.2, Urine Leukocyte Esterase NEGATIVE, Urine WBC (Auto) 2, Urine RBC (Auto) 3, Urine Hyaline Casts (Auto) 0, Urine Bacteria (Auto) 1+H, Urine Squamous Epithelial Cells 13, Urine Sperm (Auto) CBC/BMP Laboratory Tests 09/26/20 06:20 09/26/20 06:22 Microbiology Microbiology 09/25/20 Blood Culture - Preliminary, Resulted No growth after 24 hours . All specim... 09/20/20 Blood Culture - Final, Complete NO GROWTH AFTER 5 DAYS 09/20/20 Blood Culture - Final, Complete NO GROWTH AFTER 5 DAYS 09/19/20 Urine Culture - Final, Complete 09/19/20 Respiratory Virus Panel (PCR) (MANNY) - Final, Complete 09/19/20 Blood Culture - Final, Complete Klebsiella Pneumoniae 09/19/20 Blood Culture - Final, Complete Klebsiella Pneumoniae SHELLIE CHURCHILL MD Sep 26, 2020 17:50
[2020-09-27] VITALS (9 sets, daily range): BP systolic 74–121; BP diastolic 46–94
[2020-09-27] MEDS: PIPERACILLIN/TAZOBACTAM SOD 4.5 GM in D5W MINI-BAG PLUS 50 ML IV SCH ×2 (04:51→08:53)
[2020-09-27 05:03] LABS: HEMATOCRIT 25.3 % (36.0-47.0); HEMOGLOBIN 7.6 g/dl (12.0-15.5); MEAN CORPUSCULAR HEMOGLOBIN 29.6 pg (27.0-33.0); MEAN CORPUSCULAR VOLUME 98.4 fl (80.0-96.0); PLATELET COUNT, AUTOMATED 139 10^3/uL (150-450); RED BLOOD COUNT 2.57 10^6/uL (4.00-5.40); WHITE BLOOD COUNT 24.1 10^3/uL (4.0-10.0)
[2020-09-27] MEDS: SLF 3 ML SYR IV SCH ×2 (05:34→08:55)
[2020-09-27 05:37] LABS: BLOOD UREA NITROGEN 10 MG/DL (7-18); CALCIUM LEVEL 7.4 MG/DL (8.8-10.2); CARBON DIOXIDE LEVEL 26 MEQ/L (21-32); CHLORIDE LEVEL 115 MEQ/L (98-107); CREATININE FOR GFR 0.61 MG/DL (0.55-1.30); GLOMERULAR FILTRATION RATE > 60.0 (>32); GLUCOSE, FASTING 100 MG/DL (70-100); POTASSIUM SERUM 4.1 MEQ/L (3.5-5.1); SODIUM LEVEL 146 MEQ/L (136-145)
[2020-09-27] MEDS: LEVOTHYROXINE 88MCG TABLET (0.088 MG) PO SCH (05:38)
[2020-09-27 05:47] LABS: BASOPHILS 2 % (0-1); LYMPHOCYTES 6 % (16-44); MONOCYTES 1 % (0-5); NEUTROPHILS 91 % (28-66)
[2020-09-27 05:48] LABS: ANISOCYTOSIS 1+; PLATELET ESTIMATE DECREASED (NORMAL)
[2020-09-27] MEDS: MAGNESIUM OXIDE 400MG TAB (MAG-OX) PO SCH (08:53)
[2020-09-27] MEDS: METOPROLOL TART 25 MG TABLET PO SCH (08:53)
[2020-09-27] MEDS: PANTOPRAZOLE 40MG TAB (PROTONIX) PO SCH (08:54)
[2020-09-27] MEDS: APIXABAN 5 MG TAB (ELIQUIS) PO SCH (08:54)
[2020-09-27] MEDS: DIGOXIN 0.125 MG TAB PO SCH (08:54)
[2020-09-27] MEDS: busPIRone 10 MG TAB PO SCH (08:54)
[2020-09-27] MEDS: ASPIRIN 81MG ENTERIC TABLET PO SCH (08:54)
[2020-09-27 12:51] LABS: FOLATE 17.3 NG/ML (>5.4)
[2020-09-27] MEDS ORDERED: FURO20TA2 PO ×2 (14:11→14:47)
[2020-09-27] MEDS ORDERED: CEFD1CAP8 PO (14:11)
[2020-09-27] MEDS ORDERED: METO1TAB87 PO (14:11)
[2020-09-27] MEDS ORDERED: DIGO0.123 PO (14:11)
--- NOTE | 2020-09-27 14:22 | DS.PDOC ---
Discharge Summary General Date of Admission Sep 19, 2020 at 09:50 Date of Discharge 09/27/20 Discharge Summary PROCEDURES PERFORMED DURING STAY: [None]. ADMITTING DIAGNOSES: 1. . DISCHARGE DIAGNOSES: 1. . COMPLICATIONS/CHIEF COMPLAINT: 3. HISTORY OF PRESENT ILLNESS: . HOSPITAL COURSE: . DISCHARGE MEDICATIONS: Please see below. ALLERGIES: Please see below. PHYSICAL EXAMINATION ON DISCHARGE: VITAL SIGNS: Please see below. GENERAL: HEENT: NECK: CARDIOVASCULAR EXAMINATION: RESPIRATORY EXAMINATION: ABDOMINAL EXAMINATION: EXTREMITIES: SKIN: NEUROLOGICAL EXAMINATION: PSYCHIATRIC EXAMINATION: LABORATORY DATA: Please see below. IMAGING: PROGNOSIS: ACTIVITY: [As tolerated]. DIET: DISCHARGE PLAN: 1. c/w eliquis. 2. c/w digoxin, reduce dose of metoprolol to 12.5 mg BID. 3. Referral to IR Dr. Rios for thoracentesis. 4. Follow up with Dr. Short. 5. Continue cefdinir for 3 more days. If develops bleeding, to stop eliquis. DISPOSITION: 31/08 care at home. DISCHARGE INSTRUCTIONS: 1. . ITEMS TO FOLLOWUP ON ON OUTPATIENT: 1. . DISCHARGE CONDITION: [Stable]. TIME SPENT ON DISCHARGE: minutes. Vital Signs/I&Os Vital Signs Date Time Temp Pulse Resp B/P (MAP) Pulse Ox O2 Delivery O2 Flow Rate FiO2 09/27/20 14:12 97.1 77 16 108/56 100 Room Air I&O- Last 24 Hours up to 6 AM 09/27/20 06:00 Intake Total 1630 ml Output Total 100 ml Balance 1530 ml Laboratory Data Labs 24H Laboratory Tests 2 09/27/20 04:46: Immature Granulocyte % (Auto) , Neutrophils (%) (Auto) , Nucleated Red Blood Cells % (auto) 0.2H, Neutrophils 91H, Lymphocytes (Manual) 6L, Monocytes (Manual) 1, Basophils (Manual) 2H, Anisocytosis 1+, Platelet Estimate DECREASED, Anion Gap 5L, Glomerular Filtration Rate > 60.0, Calcium Level 7.4L 09/27/20 11:07: Iron Level 98, Total Iron Binding Capacity 192L, Transferrin % Saturation 51.0H, Ferritin 297H, Vitamin B12 Level 942H, Folate 17.3 CBC/BMP Laboratory Tests 09/27/20 04:46 Microbiology Microbiology 09/25/20 Blood Culture - Preliminary, Resulted No growth after 24 hours . All specim... 09/20/20 Blood Culture - Final, Complete NO GROWTH AFTER 5 DAYS 09/20/20 Blood Culture - Final, Complete NO GROWTH AFTER 5 DAYS 09/19/20 Urine Culture - Final, Complete 09/19/20 Respiratory Virus Panel (PCR) (MANNY) - Final, Complete 09/19/20 Blood Culture - Final, Complete Klebsiella Pneumoniae 09/19/20 Blood Culture - Final, Complete Klebsiella Pneumoniae Discharge Medications Scheduled Apixaban (Eliquis) 5 Mg Tablet, 5 MG PO BID, (Reported) Aspirin (Aspirin EC) 81 Mg Tab, 81 MG PO DAILY, (Reported) Atorvastatin Calcium (Atorvastatin Calcium) 40 Mg Tab, 40 MG PO DAILY, (Reported) Buspirone HCl (Buspirone HCl) 10 Mg Tab, 10 MG PO BID, (Reported) Cefdinir (Cefdinir) 300 Mg Capsule, 300 MG PO BID Cholecalciferol (Vitamin D3) (Vitamin D3) 1,000 Unit Tablet, 2,000 UNITS PO HORACIO LY, (Reported) Dexamethasone (Dexamethasone) 2 Mg Tablet, 2 MG PO DAILY Digoxin (Digoxin) 125 Mcg Tablet, 125 MCG PO DAILY Ferrous Sulfate (Ferrous Sulfate) 325 Mg Tablet, 325 MG PO DAILY, (Reported) Furosemide (Furosemide) 20 Mg Tablet, 1 TAB PO Q2D Levothyroxine Sodium (Synthroid) 88 Mcg Tablet, 88 MCG PO DAILY, (Reported) Magnesium Oxide (Magnesium Oxide) 400 Mg Tablet, 400 MG PO BID, (Reported) Metoprolol Tartrate (Metoprolol Tartrate) 25 Mg Tablet, 12.5 MG PO BID Omeprazole (Omeprazole) 40 Mg Capsule.dr, 40 MG PO DAILY, (Reported) Scheduled PRN Acetaminophen (Tylenol) 325 Mg Tablet, 650 MG PO QID PRN for PAIN / FEVER, (R eported) Loperamide HCl (Imodium A-D) 2 Mg Tablet, 2 MG PO PRN PRN for DIARRHEA, (Reported) Lorazepam (Ativan) 0.5 Mg Tablet, 0.5 MG PO Q4HP PRN for ANXIETY/AGITATION, (Reported) Nitroglycerin (Nitrostat) 0.4 Mg Subl, 0.4 MG SL NITRO PRN for CHEST PAIN, (Reported) Ondansetron HCl (Ondansetron HCl) 8 Mg Tablet, 8 MG PO Q12HP PRN for NAUSEA OR VOMITING Prochlorperazine Maleate (Prochlorperazine Maleate) 10 Mg Tablet, 10 MG PO Q6H PRN for NAUSEA OR VOMITING Tramadol HCl (Tramadol HCl) 50 Mg Tablet, 50 MG PO BID PRN for PAIN LEVEL 4-7, (Reported) Allergies Coded Allergies: albuterol (Verified Allergy, Severe, Shortness of breath, 05/04/18) ipratropium (Verified Allergy, Severe, Shortness of breath, 05/04/18) SHELLIE CHURCHILL MD Sep 27, 2020 14:22
[2020-09-27] MEDS ORDERED: SPIR-10 PO (14:47)
[2020-09-27 17:27] LABS: HEMATOCRIT 29.5 % (36.0-47.0); HEMOGLOBIN 9.3 g/dl (12.0-15.5); MEAN CORPUSCULAR HEMOGLOBIN 30.6 pg (27.0-33.0); MEAN CORPUSCULAR HGB CONC 31.5 g/dl (32.0-36.5); PLATELET COUNT, AUTOMATED 142 10^3/uL (150-450); RED BLOOD COUNT 3.04 10^6/uL (4.00-5.40); WHITE BLOOD COUNT 24.7 10^3/uL (4.0-10.0)
[2020-09-27 18:32] LABS: ANISOCYTOSIS 1+; ATYPICAL LYMPH 1 % (0-5); LYMPHOCYTES 3 % (16-44); MONOCYTES 2 % (0-5); NEUTROPHILS 73 % (28-66); PLATELET ESTIMATE DECREASED (NORMAL)
== END 2020-09-27 18:03 | disposition home health service (06) | DRG 871 ==
LOC: M ED 06:32 → M ED INP 09:50 → ENRESERV 10:40 → M ICU 13:38 → M PCU 09-22 20:58
PROVIDERS: ADMIT Internal Medicine Nephrology; ATTEND Family Medicine
PROC: 30233J1 Transfusion of Nonautologous Serum Albumin into Peripheral Vein, Percutaneous Approach (ICD-10-PCS; 2020-09-25)
PROC: 30233N1 Transfusion of Nonautologous Red Blood Cells into Peripheral Vein, Percutaneous Approach (ICD-10-PCS; principal; 2020-09-27)
DX: A41.59 Other Gram-negative sepsis (principal); R65.21 Severe sepsis with septic shock; I50.43 Acute on chronic combined systolic (congestive) and diastolic (congestive) heart failure; C18.9 Malignant neoplasm of colon, unspecified; C78.7 Secondary malignant neoplasm of liver and intrahepatic bile duct; C78.01 Secondary malignant neoplasm of right lung; C78.02 Secondary malignant neoplasm of left lung; E87.2 Acidosis; D70.9 Neutropenia, unspecified; K91.1 Postgastric surgery syndromes; I48.0 Paroxysmal atrial fibrillation; I25.10 Atherosclerotic heart disease of native coronary artery without angina pectoris; I25.5 Ischemic cardiomyopathy; I11.0 Hypertensive heart disease with heart failure; E03.9 Hypothyroidism, unspecified; H81.09 Meniere's disease, unspecified ear; M17.11 Unilateral primary osteoarthritis, right knee; M71.21 Synovial cyst of popliteal space [Baker], right knee; F41.9 Anxiety disorder, unspecified; E55.9 Vitamin D deficiency, unspecified; I25.2 Old myocardial infarction; Z87.442 Personal history of urinary calculi; Z90.49 Acquired absence of other specified parts of digestive tract; Z79.01 Long term (current) use of anticoagulants; Z79.82 Long term (current) use of aspirin; Z79.899 Other long term (current) drug therapy; Z88.8 Allergy status to other drugs, medicaments and biological substances; Z95.5 Presence of coronary angioplasty implant and graft; Z95.810 Presence of automatic (implantable) cardiac defibrillator; Z87.11 Personal history of peptic ulcer disease

== ENCOUNTER 2020-10-04 17:06 | Emergency (ER) | payer MEDICARE ==
[~2020-10-04] VITALS: Ht 157.5 cm; Wt 59.1 kg
[~2020-10-04 17:06] MED LIST changes: +CEFD1CAP8 PO; +METO1TAB33 PO
--- NOTE | 2020-10-04 18:22 | REPVR ---
PROCEDURE INFORMATION: Exam: CT Head Without Contrast Exam date and time: 10/04/2020 5:50 PM Age: 85 years old Clinical indication: Injury or trauma; Fall; Blunt trauma (contusions or hematomas); Additional info: Fall with head trauma TECHNIQUE: Imaging protocol: Computed tomography of the head without contrast. Radiation optimization: All CT scans at this facility use at least one of these dose optimization techniques: automated exposure control; mA and/or kV adjustment per patient size (includes targeted exams where dose is matched to clinical indication); or iterative reconstruction. COMPARISON: 1. CT Head W/O FOLL BY WITH CONTR 2015-12-12 15:[address] Head with contrast 2015-08-15 17:16 FINDINGS: Brain: Diffuse mild cerebral age related volume loss. Mild patchy low attenuation in the white matter compatible with mild chronic small vessel ischemic disease. No midline shift, mass, fluid collection, or evidence of hemorrhage. Cerebral ventricles: Ventricular enlargement proportional to volume loss. Paranasal sinuses: Visualized sinuses are unremarkable. No fluid levels. Mastoid air cells: Visualized mastoid air cells are well aerated. Bones/joints: Mild incidental hyperostosis frontalis of the calvarium. Soft tissues: Unremarkable. IMPRESSION: Mild involutional changes, no acute intracranial abnormality. Electronically signed by: Mk Squires On 10/04/2020 18:22:16 PM
--- NOTE | 2020-10-04 18:23 | REPVR ---
PROCEDURE INFORMATION: Exam: CT Cervical Spine Without Contrast Exam date and time: 10/04/2020 5:50 PM Age: 85 years old Clinical indication: Injury or trauma; Fall; Blunt trauma; Additional info: Fall with head trauma TECHNIQUE: Imaging protocol: Computed tomography images of the cervical spine without contrast. Radiation optimization: All CT scans at this facility use at least one of these dose optimization techniques: automated exposure control; mA and/or kV adjustment per patient size (includes targeted exams where dose is matched to clinical indication); or iterative reconstruction. COMPARISON: 1. PT PET/CT Skull/mid thigh 2018-06-28 10:05 2. PT PET/CT Skull/mid thigh 2018-04-05 10:25 FINDINGS: Bones/joints: Normal spinal curvature, vertebral body heights, and alignment. No spinal fracture or acute subluxation. Discs/Spinal canal/Neural foramina: Diffuse degenerative disc space loss with degenerative disc osteophyte complexes, facet arthropathy, and ligamentum flavum thickening causes up to moderate spinal and foraminal stenosis greatest at C4-C6. Lungs: Lung apices are normal. Soft tissues: Unremarkable. IMPRESSION: No acute vertebral fracture/subluxation. Electronically signed by: Mk Squires On 10/04/2020 18:23:00 PM
[2020-10-04 19:07] LABS: BASO # 0.1 10^3/uL (0.0-0.2); BASO % 0.3 % (0.0-1.0); HEMATOCRIT 32.5 % (36.0-47.0); LYMPH # 0.4 10^3/uL (1.5-5.0); LYMPH % 1.5 % (24.0-44.0); MEAN CORPUSCULAR HEMOGLOBIN 31.2 pg (27.0-33.0); MEAN CORPUSCULAR HGB CONC 30.8 g/dl (32.0-36.5); MEAN CORPUSCULAR VOLUME 101.2 fl (80.0-96.0); MONO # 0.4 10^3/uL (0.0-0.8); MONO % 1.7 % (2.0-8.0); NEUTROPHILS # 21.8 10^3/uL (1.5-8.5); NEUTROPHILS % 94.7 % (36.0-66.0); PLATELET COUNT, AUTOMATED 216 10^3/uL (150-450); RED BLOOD COUNT 3.21 10^6/uL (4.00-5.40)
[2020-10-04 19:20] LABS: BLOOD UREA NITROGEN 28 MG/DL (7-18); CALCIUM LEVEL 8.4 MG/DL (8.8-10.2); CARBON DIOXIDE LEVEL 28 MEQ/L (21-32); CHLORIDE LEVEL 106 MEQ/L (98-107); CK-MB VALUE MASS < 1.0 NG/ML (<3.6); CPK CREATINE PHOSPHOKINASE 33 U/L (26-192); CREATININE FOR GFR 0.82 MG/DL (0.55-1.30); GLOMERULAR FILTRATION RATE > 60.0 (>32); GLUCOSE, FASTING 207 MG/DL (70-100); MAGNESIUM LEVEL 2.2 MG/DL (1.8-2.4); MB/CK RELATIVE INDEX 3.03 (< OR =4); POTASSIUM SERUM 4.6 MEQ/L (3.5-5.1); SODIUM LEVEL 141 MEQ/L (136-145); TROPONIN I < 0.02 NG/ML (< 0.10)
--- NOTE | 2020-10-04 19:21 | REP ---
INDICATION: rule out hematoma, right back COMPARISON: None TECHNIQUE: Real time henderson scale ultrasound examination using curved array transducer with color Doppler evaluation of the renal vasculature. FINDINGS: Directed ultrasound examination overlying the right flank demonstrates a 2.8 x 1.6 x 2.7 cm ovoid avascular fluid collection which appears to be intramuscular and consistent with hematoma given the patient's history of trauma and pain. IMPRESSION: 1. Findings suggesting small hematoma. <Electronically signed by Jethro King > 10/04/20 [id number]
[2020-10-04 20:06] VITALS: BP 109/56
--- NOTE | 2020-10-04 21:27 | ECGEPIP ---
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
== END 2020-10-04 20:14 | disposition home or self-care (01) ==
LOC: M ED 17:06
DX: S30.0XXA Contusion of lower back and pelvis, initial encounter (principal); S00.03XA Contusion of scalp, initial encounter; W01.198A Fall on same level from slipping, tripping and stumbling with subsequent striking against other object, initial encounter; Y92.009 Unspecified place in unspecified non-institutional (private) residence as the place of occurrence of the external cause; Y93.9 Activity, unspecified; Y99.9 Unspecified external cause status; I11.0 Hypertensive heart disease with heart failure; I50.9 Heart failure, unspecified; J44.9 Chronic obstructive pulmonary disease, unspecified; E03.9 Hypothyroidism, unspecified; I25.10 Atherosclerotic heart disease of native coronary artery without angina pectoris; I48.91 Unspecified atrial fibrillation; Z88.8 Allergy status to other drugs, medicaments and biological substances; Z79.899 Other long term (current) drug therapy; Z79.01 Long term (current) use of anticoagulants; Z79.82 Long term (current) use of aspirin

== ENCOUNTER → 2020-10-22 | Outpatient (CLI) | payer MEDICARE ==
--- NOTE | 2020-10-22 14:40 | REP ---
INDICATION: RT LEG SWELLING/PAIN COMPARISON: 05/15/2020. TECHNIQUE: Real time compression and duplex Doppler interrogation of the right lower extremity deep venous system is performed, including the left common femoral vein.Compression of the right peroneal and posterior tibial veins is performed. FINDINGS: The right common femoral, superficial femoral and popliteal veins are fully compressible with transducer pressure and demonstrate normal spontaneous and phasic flow, without evidence of deep venous thrombosis.The left common femoral vein demonstrates no thrombus.The visualized right peroneal and posterior tibial veins demonstrate no thrombus. IMPRESSION: No evidence of deep venous thrombosis of the right lower extremity femoral popliteal venous system.The visualized right peroneal and posterior tibial veins demonstrate no thrombus. <Electronically signed by Yared Snider > 10/22/20 [id number]
== END ==
LOC: M RAD 13:28
PROVIDERS: ATTEND Specialist
DX: M79.661 Pain in right lower leg (principal)

== ENCOUNTER 2020-11-10 14:12 | Emergency (ER) | payer MEDICARE ==
[~2020-11-10] VITALS: Ht 157.5 cm; Wt 59.5 kg
[2020-11-10] MEDS ORDERED: AMOX400S2 (14:51)
[2020-11-10 15:12] LABS: BASO # 0.1 10^3/uL (0.0-0.2); BASO % 0.3 % (0.0-1.0); EOS % 0.2 % (0.0-3.0); HEMATOCRIT 36.9 % (36.0-47.0); HEMOGLOBIN 11.6 g/dl (12.0-15.5); LYMPH # 0.5 10^3/uL (1.5-5.0); LYMPH % 3.2 % (24.0-44.0); MEAN CORPUSCULAR HEMOGLOBIN 29.3 pg (27.0-33.0); MEAN CORPUSCULAR HGB CONC 31.4 g/dl (32.0-36.5); MEAN CORPUSCULAR VOLUME 93.2 fl (80.0-96.0); MONO # 0.6 10^3/uL (0.0-0.8); MONO % 4.3 % (2.0-8.0); NEUTROPHILS # 13.4 10^3/uL (1.5-8.5); NEUTROPHILS % 90.8 % (36.0-66.0); PLATELET COUNT, AUTOMATED 266 10^3/uL (150-450); RED BLOOD COUNT 3.96 10^6/uL (4.00-5.40); WHITE BLOOD COUNT 14.8 10^3/uL (4.0-10.0)
--- NOTE | 2020-11-10 15:44 | REP ---
INDICATION: DYSPNEA/COUGH. COMPARISON: Comparison study September 25, 2020. TECHNIQUE: Portable upright AP chest radiograph. FINDINGS: A right-sided [id number]-[id number] catheter is seen terminating at the expected location of the SVC right atrial junction. A left-sided transvenous pacemaker is noted. There is another electronic device overlying the right heart border. EKG electrodes are seen. Heart size is borderline. There is slight blunting of the left lateral pleural angle. This is improved. No infiltrate is seen. IMPRESSION: Improved slight blunting of the left lateral pleural angle. Borderline heart size. Pacemaker and Mgxzzo-D-Hxza catheter. No acute infiltrate. <Electronically signed by Bruce Avelar > 11/10/20 [id number]
[2020-11-10 15:46] LABS: ALT/SGPT 113 U/L (12-78); BILIRUBIN,DIRECT 0.3 MG/DL (0.0-0.2); BILIRUBIN,TOTAL 0.9 MG/DL (0.2-1.0); BLOOD UREA NITROGEN 27 MG/DL (7-18); CALCIUM LEVEL 8.2 MG/DL (8.8-10.2); CARBON DIOXIDE LEVEL 21 MEQ/L (21-32); CHLORIDE LEVEL 108 MEQ/L (98-107); CK-MB VALUE MASS 1.3 NG/ML (<3.6); CPK CREATINE PHOSPHOKINASE 85 U/L (26-192); CREATININE FOR GFR 0.76 MG/DL (0.55-1.30); GLOMERULAR FILTRATION RATE > 60.0 (>32); GLUCOSE, FASTING 251 MG/DL (70-100); MB/CK RELATIVE INDEX 1.53 (< OR =4); NT-PRO BNP 3952 PG/ML (<450); POTASSIUM SERUM 4.4 MEQ/L (3.5-5.1); SODIUM LEVEL 140 MEQ/L (136-145); TOTAL PROTEIN 5.2 GM/DL (6.4-8.2); TROPONIN I < 0.02 NG/ML (< 0.10)
[2020-11-10 16:13] LABS: RSV AMPLIFICATION NEGATIVE (NEGATIVE)
[2020-11-10] MEDS: GASTROGRAFIN SOLUTION 30ML PO SCH ×2 (17:35→17:45)
[2020-11-10] MEDS ORDERED: ISOVUE-370 76% 100ML VIAL As Ordered ONE (18:43)
[2020-11-10 19:15] VITALS: BP 118/64
--- NOTE | 2020-11-10 20:32 | REPVR ---
PROCEDURE INFORMATION: Exam: CT Abdomen And Pelvis With Contrast Exam date and time: 11/10/2020 7:29 PM Age: 85 years old Clinical indication: Abdominal pain; Other: Upper; Additional info: 85yo F HX colon CA, liver mets, transaminitis, upper abd pn TECHNIQUE: Imaging protocol: Computed tomography of the abdomen and pelvis with contrast. Radiation optimization: All CT scans at this facility use at least one of these dose optimization techniques: automated exposure control; mA and/or kV adjustment per patient size (includes targeted exams where dose is matched to clinical indication); or iterative reconstruction. Contrast material: ISOVUE 370; Contrast volume: 100 ml; Contrast route: INTRAVENOUS (IV); Other contrast: Oral, gastrographin, 16; COMPARISON: CT ABD PELVIS W/O FOL BY WIT 09/26/2020 3:37 PM FINDINGS: Lungs: Bibasilar atelectasis. 8 mm noncalcified nodule right middle lobe and 9 mm noncalcified nodule lingular lobe. 8 mm nodule has increased in size. 9 mm nodule excluded from the [id number] on the prior examination. Pleural spaces: Small right pleural effusion. Mediastinal space: A small slight hiatal hernia is present. Liver: Complex enhancing metastatic disease involving the posterior segment of the right lobe of the liver has increased in size in comparison to the prior study with the largest component now measuring 6.9 x 9.1 cm increased from approximately 4.6 x 6.8 cm measured transversely. There has also been interval increase in the size of a metastatic focus in the left lobe of the liver from 2.2 to 3.4 cm. There is a diffuse decrease in hepatic parenchymal density, consistent with steatosis. Gallbladder and bile ducts: Pneumobilia with moderate dilatation of the intrahepatic biliary tree. Indwelling biliary stent demonstrated containing air and fluid/soft tissue density. Pancreas: Normal. No ductal dilation. Spleen: Normal. No splenomegaly. Adrenal glands: Normal. No mass. Kidneys and ureters: Bilateral simple renal cysts measure up to 2.4 cm in the upper pole of the right kidney. No follow-up suggested. Stomach and bowel: Duodenal diverticulum. Sutures demonstrated in the distal colon. Appendix: No evidence of appendicitis. Intraperitoneal space: Unremarkable. No free air. No significant fluid collection. Vasculature: The aortoiliac vessels demonstrate mild atherosclerotic calcification. Lymph nodes: Unremarkable. No enlarged lymph nodes. Urinary bladder: Unremarkable as visualized. Reproductive: There has been a hysterectomy. Bones/joints: The spine demonstrates moderate degenerative changes. Mild central spinal stenosis L1-L2, moderate to severe central spinal stenosis L2-L3, severe central spinal stenosis L3-L4 and L4-L5. Moderate central spinal stenosis L5-S1. Soft tissues: Unremarkable. Other findings: Osteoporosis. IMPRESSION: 1. Progressive metastatic disease to the liver. 2. There is a diffuse decrease in hepatic parenchymal density, consistent with steatosis. 3. Status post biliary stent. Pneumobilia with moderate dilatation of the biliary tree again redemonstrated. 4. A small slight hiatal hernia is present. 5. There has been a hysterectomy. 6. Lung nodules as described above with interval increase in the size of a nodule in the right middle lobe. Findings consistent with metastatic disease COMMENTS: Consistent with the [employer]'s Incidental Findings Committee white paper (J Am Mariam Radiol 2018): Any incidental renal lesion less than 1 cm or classified as too small to characterize, or any incidental cystic renal lesion characterized as simple-appearing, is likely benign. No follow-up imaging is recommended for these lesions per consensus recommendations based on imaging criteria. Electronically signed by: Macho Beck On 11/10/2020 20:31:42 PM
--- NOTE | 2020-11-10 20:46 | ECGEPIP ---
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
== END 2020-11-10 21:40 | disposition home or self-care (01) ==
LOC: M ED 14:12
DX: R06.02 Shortness of breath (principal); U07.1 COVID-19; R91.1 Solitary pulmonary nodule; I11.0 Hypertensive heart disease with heart failure; I50.9 Heart failure, unspecified; I48.91 Unspecified atrial fibrillation; E78.5 Hyperlipidemia, unspecified; Z79.899 Other long term (current) drug therapy; Z79.890 Hormone replacement therapy; Z79.82 Long term (current) use of aspirin; Z79.01 Long term (current) use of anticoagulants; Z88.8 Allergy status to other drugs, medicaments and biological substances
CPT/HCPCS: 36415; 71045; 74177; 80048; 80076; 82550; 82553; 83605; 83880; 84484; 85025; 87631; 93005; 93041; 94760; 99285; J1642; Q9963; Q9967

== ENCOUNTER → 2020-11-22 | Outpatient (REF) | payer MEDICARE ==
[~2020-11-22] MED LIST changes: +AMOX400S2
== END ==
LOC: M SFHCADAM 14:58
PROVIDERS: ATTEND Family Medicine
DX: I47.1 Supraventricular tachycardia (principal); I48.0 Paroxysmal atrial fibrillation

== ENCOUNTER → 2020-12-24 | Outpatient (REF) ==
[~2020-12-24] MED LIST changes: -MAGN400T3 PO; +MAGN400T33 PO
[2020-12-24 11:19] LABS: APPEARANCE, URINE CLOUDY (CLEAR); BACTERIA, URINE AUTO 2+ (NEGATIVE); BILIRUBIN, URINE AUTO NEGATIVE (NEGATIVE); BLOOD, URINE BLOOD 1+ (NEGATIVE); COLOR, URINE AMBER (YELLOW); GLUCOSE, URINE (UA) AUTO NEGATIVE (NEGATIVE); KETONE, URINE AUTO TRACE mg/dL (NEGATIVE); LEUKOCYTE ESTERASE, URINE AUTO 3+ (NEGATIVE); MUCUS, URINE SMALL (NEGATIVE); NITRITE, URINE AUTO POSITIVE (NEGATIVE); PROTEIN, URINE AUTO 1+ mg/dL (NEGATIVE); RBC, URINE AUTO 36 /HPF (0-3); SPECIFIC GRAVITY URINE AUTO 1.024 (1.002-1.035); SQUAMOUS EPITHELIAL CELL UR AU 0 /HPF (0-6); WBC, URINE AUTO 21 /HPF (0-3)
== END ==
LOC: M LAB REF 10:42
PROVIDERS: ATTEND Family Medicine
DX: Z00.00 Encounter for general adult medical examination without abnormal findings (principal)

== ENCOUNTER → 2021-01-05 | Outpatient (REF) | payer MEDICARE ==
[~2021-01-05] MED LIST changes: -AMIO200T3 PO; +AMIO200T49 PO; -CEFD1CAP8 PO; +CEFD300C41 PO; +LOSA100T45 PO; -LOSA100T50 PO; +LOSA25TA13 PO; -LOSA25TA14 PO; +LOSA50TA28 PO; -LOSA50TA88 PO; -OMEP-221 PO; +OMEP40CA5 PO; +ONDA-84 PO; -ONDA8TAB10 PO; +POTA-151 PO; -POTA20TA6 PO; -PROC10TA4 PO; +PROC10TA5 PO
[2021-01-05 13:46] LABS: APPEARANCE, URINE MANUAL TURBID (CLEAR); COLOR, URINE MANUAL BROWN (YELLOW)
[2021-01-05 13:47] LABS: BILIRUBIN, URINE MANUAL OBSCURED (NEGATIVE); BLOOD URINE MANUAL POSITIVE (NEGATIVE); GLUCOSE, URINE (UA) MANUAL NEGATIVE (NEGATIVE); KETONE, URINE MANUAL OBSCURED mg/dL (NEGATIVE); LEUKOCYTE ESTERASE, URINE MAN POSITIVE (NEGATIVE); NITRITE, URINE MANUAL OBSCURED (NEGATIVE); PROTEIN, URINE MANUAL 3+ mg/dL (NEGATIVE); SPECIFIC GRAVITY,URINE MANUAL 1.015 (1.002-1.035); UROBILINOGEN, URINE MANUAL OBSCURED mg/dl (NORMAL)
[2021-01-05 13:52] LABS: RBC, URINE TNTC /hpf (0-3); WBC, URINE TNTC /hpf (0-3)
[2021-01-05 13:53] LABS: BACTERIA, URINE LARGE AMOUNT
== END ==
LOC: M LAB REF 13:22
PROVIDERS: ATTEND Family Medicine
DX: N39.0 Urinary tract infection, site not specified (principal)